=== PATIENT | female | born 1940 | race Caucasian/White ===

== ENCOUNTER 2016-10-13 09:26 | Inpatient (IN) | payer BC, OTHER ==
[~2016-10-13] VITALS: Ht 165.1 cm; Wt 61.6 kg
[~2016-10-13 09:26] MED LIST: AZTREONAM IV; IBUP-103 PO; METRONIDAZOLE IV; ONDA4TAB10 SL; VANCOMYCIN IV; [UNRECOGNIZED DRUG - OTHER] IV
[2016-10-13] MEDS ORDERED: LDDP5 TOP (10:59)
[2016-10-13] MEDS ORDERED: OSEL75CA12 PO (10:59)
[2016-10-13] MEDS ORDERED: METO50TA16 PO (10:59)
[2016-10-13] MEDS ORDERED: POLY335019 PO (10:59)
[2016-10-13] MEDS ORDERED: BISA10SU3 PR (10:59)
[2016-10-13] MEDS ORDERED: HYDR-4383 PO (10:59)
[2016-10-13] MEDS ORDERED: DOCU-94 PO (10:59)
[2016-10-13] MEDS ORDERED: SENN-104 PO (10:59)
[2016-10-13] MEDS ORDERED: CYCL10TA6 PO (10:59)
[2016-10-13] MEDS ORDERED: OXYC1TAB3 PO (10:59)
[2016-10-13] MEDS ORDERED: CALC200T PO (10:59)
[2016-10-13] MEDS ORDERED: SODIUM CHLORIDE 0.9% 1000ML 1,000 ML IV STA (11:08)
[2016-10-13] MEDS ORDERED: HYDROCODONE/ACETAMOPHEN 5/325MG TAB PO STA (11:08)
[2016-10-13] MEDS ORDERED: OPTIRAY 320 IV PRN (11:15)
--- NOTE | 2016-10-13 11:19 | DIAGNOSTIC IMAGING REPORT ---
CHEST ONE VIEW PORTABLE CLINICAL HISTORY: Fever, sepsis, chest pain, shortness of breath. COMPARISON STUDY: 09/28/2016 FINDINGS: The heart is the upper limits of normal in size. There is elevation of the interstitium. Since the prior study, the patient developed a right perihilar airspace opacities. Given the history of fever and sepsis, this likely is inflammatory. Left basilar airspace opacities are also evident. These have a more typical atelectatic appearance although a left basilar inflammatory process cannot be excluded.[ IMPRESSION: 1. Mild elevation of the interstitium. An element of mild pulmonary vascular congestion must be considered 2. Right perihilar airspace opacities, suspicious for a pneumonitis given the clinical history 3. Left basal airspace opacities, inflammatory versus atelectatic Electronically signed by: Lui To M.D. 10/13/2016 11:17 AM
[2016-10-13 11:39] LABS: BASO % 0.1 %; BASO ABS # 0.02 K/uL (0-0.2); COMPLETE YES; EOS % 0.3 %; HEMATOCRIT 40.6 % (37-47); IG% 0.5 %; LYMPH % 7.9 %; LYMPH ABS # 1.12 K/uL (1.2-3.4); MEAN CELL VOLUME 84.6 fL (80-100); MEAN CORPUSCULAR HEMOGLOBIN 27.9 pg (25-34); MEAN PLATELET VOLUME 9.7 fL (7.4-10.4); MONO % 9.3 %; NEUT % 81.9 %; PLATELET COUNT 183 K/uL (130-400); WHITE BLOOD COUNT 14.14 K/uL (4.8-10.8)
[2016-10-13 11:47] LABS: URINE APPEARANCE CLEAR (CLEAR); URINE BILIRUBIN NEG (NEG); URINE COLOR YELLOW; URINE EPITHELIAL CELL AUTO 20-30 /lpf (0-5); URINE NITRITE NEG (NEG); URINE SPECIFIC GRAVITY 1.013 (1.000-1.030); UROBILINOGEN NEG (NEG)
[2016-10-13 11:53] LABS: ALT/SGPT 55 U/L (12-78); BLOOD UREA NITROGEN 13 mg/dl (7-18); BUN/CREATININE RATIO 21.2 (10-20); CALCIUM 9.1 mg/dl (8.5-10.1); CARBON DIOXIDE 27 mmol/L (21-32); CHLORIDE 96 mmol/L (98-107); GLUCOSE 101 mg/dl (70-99); POTASSIUM 4.3 mmol/L (3.5-5.1); SODIUM 134 mmol/L (136-145)
[2016-10-13 11:54] LABS: MANUAL MICROSCOPIC REQUIRED? NO; REVIEW REQ? NO
[2016-10-13 11:59] LABS: ALKALINE PHOSPHATASE 155 U/L (45-117); AST/SGOT 34 U/L (15-37); CKMB/CK RATIO 3.9 (0-3.0)
[2016-10-13 12:07] LABS: PARTIAL THROMBOPLASTIN RATIO 1.2; PROTHROMBIN TIME (PATIENT) 10.5 SECONDS (9.0-12.0)
--- NOTE | 2016-10-13 13:00 | DIAGNOSTIC IMAGING REPORT ---
CT ANGIOGRAM OF THE CHEST CLINICAL HISTORY: Atypical chest pain. Possible pulmonary embolism. COMPARISON STUDY: Chest x-ray dated 10/13/2016 TECHNIQUE: Following the IV administration of 77 mL of Optiray-320, CT angiogram of the thorax was performed from the thoracic inlet to the lung bases utilizing the pulmonary embolus protocol. Images are reviewed in the axial, sagittal, and coronal planes. IV contrast was administered without complication. MIP imaging was performed. CT DOSE: 264.62 mGy.cm FINDINGS: There is a multinodular thyroid gland with nodules measuring up to 16 mm in diameter. No pathologically enlarged axillary mediastinal or hilar lymph nodes were visualized. There was no evidence of thoracic aortic dilatation. There are moderate to large bilateral pulmonary artery filling defects involving both upper lobes and both lower lobes., There are right lower lobe airspace opacities, consistent with a pneumonia or pulmonary infarct. There are also left upper lobe airspace opacities likely secondary to atelectasis or infarct. There is a trace right pleural effusion. There are postsurgical changes present within the spine. IMPRESSION: 1. Moderate to large bilateral pulmonary filling defects consistent with acute pulmonary embolism. 2. Bilateral airspace opacities, possibly secondary to pulmonary infarction 3. Trace right pleural effusion 4. Multinodular thyroid gland Electronically signed by: Lui To M.D. 10/13/2016 12:58 PM
--- NOTE | 2016-10-13 14:14 | EMERGENCY ROOM VISIT NOTE ---
History Report prepared by Briana: Jimmie Vasquez Under the Supervision of: Dr. Chan Tello D.O. First contact with patient: 10:49 Chief Complaint: CHEST PAIN Stated Complaint: CHEST PAIN/SOB Nursing Triage Summary: Pt. arrives ALS from [facility] with a chief complaint of chest pain. She has the pain when she takes a deep breath. She appears to be in pain "it hurts when I breathe" and is on the litter with her eyes closed, wincing with pain. She reports having a laminectomy 4 weeks ago, she has a history of ovarian cancer. ALS reports a BSG of 97 during transport. Daughter arrives with further history: Pt. was dx. with ovarian CA on her birthday, [birth year]. Prior to her dx. her baseline status was an active older adult, lives at home with her . She also had a new onset of A-fib prior to her laminectomy. The laminectomy was for a blood clot in her dura space. Recheck on 10/09/16 post op, revealed an intact and healing incision. Pt. was due to begin CA tx. the beginning of September. She has not started yet. "there is a mass on her lower lobe lung too" History of Present Illness The patient is a 76 year old female who presents to the Emergency Room with complaints of persistent right-sided chest and back pain that started last night. Per the patient's family, the patient was complaining of mostly right- sided chest pain last night. The pain then moved to her back this morning at the same height and region on her right side. The pain is worse when breathing. She was given Oxycodone last night, and the nurse at [facility] said the patient's symptoms improved somewhat. The patient had a laminectomy 4 weeks ago and has a history of ovarian cancer. She had surgery on the and was sent for rehab at [facility] on the . She has been having muscle spasms in her back. The patient is not allowed to cough or vomit due to her surgery, and is on Tamiflu because there is a flu outbreak at [facility]. The patient's family notes that the patient has a history of an atrial fibrillation episode. Source of History: patient, family Onset: Last night Position: chest (right), back (right) Timing: other (persistent) Modifying Factors (Worsening): breathing Modifying Factors (Relieving): other (Oxycodone) Associated Symptoms: No cough, No vomiting Note: No other associated symptoms. Review of Systems See HPI for pertinent positives & negatives. A total of 10 systems reviewed and were otherwise negative. Past Medical & Surgical Medical Problems: (1) Gastritis (2) Knee pain (3) Ovarian cancer Family History Heart disease Social History Smoking Status: Never Smoker Alcohol Use: none Drug Use: none Marital Status: Housing Status: lives with family Occupation Status: retired Current/Historical Medications Scheduled Bisacodyl (Dulcolax), 1 SUPP PA DAILY Calcium Carbonate-Vitamin D (Oscal 500/200 D-3), 1 TAB PO DAILY Docusate Sodium (Colace), 1 CAP PO BID Lidocaine (Lidocaine), 1 PATCH TOP DAILY Metoprolol Tartrate (Lopressor) (Lopressor), 50 MG PO BID Oseltamivir (Tamiflu), 75 MG PO DAILY Polyethylene Glycol 3350 (Miralax), 17 GM PO DAILY Sennosides-Docusate Sodium (Senna-S), 1 TAB PO BID Scheduled PRN Cyclobenzaprine Hcl (Flexeril), 10 MG PO Q8 PRN for Muscle Spasms Hydrocodone/Acetaminophen (Naubinway 10/325 Tab), 1 TAB PO Q4 PRN for Pain Oxycodone Immediate Rel Tab (Roxicodone Ir), 5 MG PO Q2H PRN for Breakthrough Pain Allergies Coded Allergies: Oxaprozin (Verified Allergy, Intermediate, FEET SWELLING, SKIN PEELING, ) Piperacillin (Verified Allergy, Intermediate, hives, 10/13/16) Tazobactam (Verified Allergy, Intermediate, hives, 10/13/16) Physical Exam Vital Signs Date Time Temp Pulse Resp B/P Pulse Ox O2 Delivery O2 Flow Rate FiO2 10/13/16 13:35 106 18 142/95 95 Room Air 10/13/16 12:21 112 31 10/13/16 12:16 107 21 95 10/13/16 12:11 109 21 96 10/13/16 12:06 106 21 94 10/13/16 12:01 107 27 94 10/13/16 11:57 158/84 10/13/16 11:57 104 20 158/84 96 Room Air 10/13/16 11:56 103 21 96 10/13/16 11:51 96 20 96 10/13/16 11:46 107 25 98 10/13/16 11:41 121 23 97 10/13/16 11:36 120 21 96 10/13/16 11:31 123 28 96 10/13/16 11:26 122 27 97 10/13/16 11:21 118 32 97 10/13/16 11:16 117 28 97 10/13/16 11:11 126 28 10/13/16 11:06 114 34 97 10/13/16 11:01 118 24 96 10/13/16 10:56 117 22 95 10/13/16 10:51 119 23 94 10/13/16 10:46 101 21 94 10/13/16 10:41 104 21 95 10/13/16 10:36 102 20 94 10/13/16 10:31 100 20 98 10/13/16 10:26 99 20 95 10/13/16 10:21 103 19 94 10/13/16 10:16 102 22 96 10/13/16 10:11 100 19 94 10/13/16 10:06 103 20 93 10/13/16 10:01 96 29 98 10/13/16 09:56 106 26 97 10/13/16 09:53 133/62 10/13/16 09:53 105 18 95 Room Air 10/13/16 09:51 100 24 92 10/13/16 09:46 103 27 97 10/13/16 09:41 106 29 96 10/13/16 09:36 102 26 100 10/13/16 09:36 99 Room Air 10/13/16 09:34 36.7 158 18 153/84 99 Room Air 10/13/16 09:33 175 10/13/16 09:31 100 25 100 10/13/16 09:28 153/84 10/13/16 09:25 99 Room Air Physical Exam CONSTITUTIONAL/VITAL SIGNS: Reviewed / noted above. GENERAL: Non-toxic in appearance. INTEGUMENTARY: Warm, dry, and [place]. HEAD: Normocephalic. EYES: without scleral icterus or trauma. ENT/OROPHARYNX: clear and moist. LYMPHADENOPATHY/NECK: Is supple without lymphadenopathy or meningismus. RESPIRATORY: Lungs clear and equal. CARDIOVASCULAR: Regular rate and rhythm. CHEST: Tenderness to palpation of right lateral and posterior chest wall, no visible abnormalities. GI/ABDOMEN: Soft and nontender. No organomegaly or pulsatile mass. No rebound or guarding. Normal bowel sounds. EXTREMITIES: Warm and well perfused. BACK: No CVA tenderness. Post-surgical scar present in midline thoracic spine without evidence of infection. NEUROLOGICAL: Intact without focal deficits. PSYCHIATRIC: normal affect. MUSCULOSKELETAL: Normally developed with good muscle tone. Medical Decision & Procedures ER Provider Diagnostic Interpretation: X ray results and stated below per my interpretation and radiologist interpretation. Other radiology results and stated below per my review and radiologist interpretation: CHEST ONE VIEW PORTABLE CLINICAL HISTORY: Fever, sepsis, chest pain, shortness of breath. COMPARISON STUDY: 09/28/2016 FINDINGS: The heart is the upper limits of normal in size. There is elevation of the interstitium. Since the prior study, the patient developed a right perihilar airspace opacities. Given the history of fever and sepsis, this likely is inflammatory. Left basilar airspace opacities are also evident. These have a more typical atelectatic appearance although a left basilar inflammatory process cannot be excluded.[ IMPRESSION: 1. Mild elevation of the interstitium. An element of mild pulmonary vascular congestion must be considered 2. Right perihilar airspace opacities, suspicious for a pneumonitis given the clinical history 3. Left basal airspace opacities, inflammatory versus atelectatic Electronically signed by: Lui To M.D. 10/13/2016 11:[address] ANGIOGRAM OF THE CHEST CLINICAL HISTORY: Atypical chest pain. Possible pulmonary embolism. COMPARISON STUDY: Chest x-ray dated 10/13/2016 TECHNIQUE: Following the IV administration of 77 mL of Optiray-320, CT angiogram of the thorax was performed from the thoracic inlet to the lung bases utilizing the pulmonary embolus protocol. Images are reviewed in the axial, sagittal, and coronal planes. IV contrast was administered without complication. MIP imaging was performed. CT DOSE: 264.62 mGy.cm FINDINGS: There is a multinodular thyroid gland with nodules measuring up to 16 mm in diameter. No pathologically enlarged axillary mediastinal or hilar lymph nodes were visualized. There was no evidence of thoracic aortic dilatation. There are moderate to large bilateral pulmonary artery filling defects involving both upper lobes and both lower lobes., There are right lower lobe airspace opacities, consistent with a pneumonia or pulmonary infarct. There are also left upper lobe airspace opacities likely secondary to atelectasis or infarct. There is a trace right pleural effusion. There are postsurgical changes present within the spine. IMPRESSION: 1. Moderate to large bilateral pulmonary filling defects consistent with acute pulmonary embolism. 2. Bilateral airspace opacities, possibly secondary to pulmonary infarction 3. Trace right pleural effusion 4. Multinodular thyroid gland Electronically signed by: Lui To M.D. 10/13/2016 12:58 PM Laboratory Results 10/13/16 09:40 Red Blood Count 4.80, Mean Corpuscular Volume 84.6, Mean Corpuscular Hemoglobin 27.9, Mean Corpuscular Hemoglobin Concent 33.0, Mean Platelet Volume 9.7, Neutrophils (%) (Auto) 81.9, Lymphocytes (%) (Auto) 7.9, Monocytes (%) (Auto) 9.3, Eosinophils (%) (Auto) 0.3, Basophils (%) (Auto) 0.1, Neutrophils # (Auto) 11.57, Lymphocytes # (Auto) 1.12, Monocytes # (Auto) 1.32, Eosinophils # (Auto) 0.04, Basophils # (Auto) 0.02 10/13/16 09:40 Test 10/13/16 09:40 10/13/16 11:17 White Blood Count 14.14 K/uL (4.8-10.8) Red Blood Count 4.80 M/uL (4.2-5.4) Hemoglobin 13.4 g/dL (12.0-16.0) Hematocrit 40.6 % (37-47) Mean Corpuscular Volume 84.6 fL (80-100) Mean Corpuscular Hemoglobin 27.9 pg (25-34) Mean Corpuscular Hemoglobin Concent 33.0 g/dl (32-36) Platelet Count 183 K/uL (130-400) Mean Platelet Volume 9.7 fL (7.4-10.4) Neutrophils (%) (Auto) 81.9 % Lymphocytes (%) (Auto) 7.9 % Monocytes (%) (Auto) 9.3 % Eosinophils (%) (Auto) 0.3 % Basophils (%) (Auto) 0.1 % Neutrophils # (Auto) 11.57 K/uL (1.4-6.5) Lymphocytes # (Auto) 1.12 K/uL (1.2-3.4) Monocytes # (Auto) 1.32 K/uL (0.11-0.59) Eosinophils # (Auto) 0.04 K/uL (0-0.5) Basophils # (Auto) 0.02 K/uL (0-0.2) RDW Standard Deviation 50.5 fL (36.4-46.3) RDW Coefficient of Variation 16.2 % (11.5-14.5) Immature Granulocyte % (Auto) 0.5 % Immature Granulocyte # (Auto) 0.07 K/uL (0.00-0.02) Prothrombin Time 10.5 SECONDS (9.0-12.0) Prothromb Time International Ratio 1.0 (0.9-1.1) Activated Partial Thromboplast Time 31.5 SECONDS (21.0-31.0) Partial Thromboplastin Ratio 1.2 Anion Gap 11.0 mmol/L (3-11) Est Creatinine Clear Calc Drug Dose 80.8 ml/min Estimated GFR () 104.1 Estimated GFR (Non- 89.8 BUN/Creatinine Ratio 21.2 (10-20) Calcium Level 9.1 mg/dl (8.5-10.1) Total Bilirubin 0.3 mg/dl (0.2-1) Direct Bilirubin < 0.1 mg/dl (0-0.2) Aspartate Amino Transf (AST/SGOT) 34 U/L (15-37) Alanine Aminotransferase (ALT/SGPT) 55 U/L (12-78) Alkaline Phosphatase 155 U/L (45-117) Total Creatine Kinase 23 U/L (26-192) Creatine Kinase MB 0.9 ng/ml (0.5-3.6) Creatine Kinase MB Ratio 3.9 (0-3.0) Troponin I 0.029 ng/ml (0-0.045) Total Protein 7.3 gm/dl (6.4-8.2) Albumin 2.8 gm/dl (3.4-5.0) Lipase 175 U/L (73-393) Urine Color YELLOW Urine Appearance CLEAR (CLEAR) Urine pH 7.0 (4.5-7.5) Urine Specific [place] 1.013 (1.000-1.030) Urine Protein NEG (NEG) Urine Glucose (UA) NEG (NEG) Urine Ketones NEG (NEG) Urine Occult Blood 1+ (NEG) Urine Nitrite NEG (NEG) Urine Bilirubin NEG (NEG) Urine Urobilinogen NEG (NEG) Urine Leukocyte Esterase TRACE (NEG) Urine WBC (Auto) 5-10 /hpf (0-5) Urine RBC (Auto) 5-10 /hpf (0-4) Urine Hyaline Casts (Auto) 1-5 /lpf (0-5) Urine Epithelial Cells (Auto) 20-30 /lpf (0-5) Urine Bacteria (Auto) NEG (NEG) Laboratory results as stated above per my review. Medications Administered Medications (Trade) Dose Ordered Sig/Bianca Route Start Time Stop Time Status Last Admin Dose Admin Sodium Chloride (Nss 1000ml) 1,000 ml @ 999 mls/hr Q1H1M STAT IV 10/13/16 11:08 10/13/16 12:08 DC 10/13/16 11:22 999 MLS/HR Acetaminophen/ Hydrocodone Bitart ([place] 5/325 Tab) 2 tab ONE STAT PO 10/13/16 11:08 10/13/16 11:10 DC 10/13/16 11:24 2 TAB ECG Indication: chest pain Rate (beats per minute): 105 Rhythm: sinus tachycardia Findings: PVC, other (no acute injury) ED Course 1058: Previous medical records were reviewed. The patient was evaluated in room B5. A complete history and physical examination was performed. 1108: Ordered Naubinway 5/325 Tab 2 tab PO, NSS 1000 ml @ 999 mls/hr IV. 1355: I discussed the patient with Dr. Meyers - [facility] [place] wildlife science professor - he will evaluate the patient for further treatment. 1356: I discussed the patient with Dr. Quiñones - Neurosurgery [facility] - he said that it is okay to start the patient on Heparin. 1400: I reevaluated the patient and she is resting comfortably. The patient verbally expressed agreement and understanding of the treatment plan. The patient will be evaluated for further treatment. Medical Decision the differential was considered includes acute myocardial infarction, acute coronary syndrome, myocarditis, pericarditis, pericardial effusions /tamponad, esophageal perforation, thoracic aortic dissection, pulmonary embolism, pneumonia, pneumothorax, pancreatitis, shingles, acute cholecystitis, perforated abdominal viscus. This is a 76-year-old female who presents to the ED with a chief complaint of chest pain. Further details are noted above. She denies having a cough. She states that her breathing and pain is worse with deep breathing. The patient had surgery on September 29 for hemorrhage/epidural abscess. The patient's exam is noted above. She is in no respiratory distress at this time. She did have diminished breath sounds bilaterally. An EKG shows a sinus tach at a rate of 105 with a PVC. Chest x-ray has been noted above. A CT scan of the chest reveals bilateral pulmonary emboli with some pulmonary infarctions. 5 pulsatile was 14. Complete metabolic panel was unremarkable. Urine did not show infection. The patient was told the results of the tests. I spoke with Dr. Suarez (neurosurgery from [facility]). He is prosthodontist for Dr. Mead who performed the patient's surgery. He states that anticoagulation is okay to be started. The patient was ordered IV heparin. I spoke with the hospitalist, who will see the patient for further inpatient care. Consults Time Called: [phone] Consulting Physician: Dr. Mira SEGURA wildlife science professor Returned Call: [phone] I discussed the patient with Dr. Mira SEGURA wildlife science professor - he will evaluate the patient for further treatment. Additional Consults: Time Called: [phone] Consulted Physician: Dr. Quiñones - Neurosurgery - [facility] Returned Call: [phone] Additional Comments: I discussed the patient with Dr. Quiñones - Neurosurgery - [facility] - he said that it is okay to start the patient on Heparin. Impression Primary Impression: Bilateral pulmonary embolism Critical Care I have personally spent 35 minutes of critical care time in the direct management of this patient. This includes bedside care, interpretation of diagnostic studies, and testing, discussion with consultants, patient, and family members, and other required patient management activities. Scribe Attestation The scribe's documentation has been prepared under my direction and personally reviewed by me in its entirety. I confirm that the note above accurately reflects all work, treatment, procedures, and medical decision making performed by me. Departure Information Dispostion Being Evaluated By Hospitalist Adelso Gunn M.D. (PCP) Patient Instructions A Signature Page, My [facility]
[2016-10-13] MEDS ORDERED: MAGNESIUM HYDROXIDE SUSP 30 ML UDC PO PRN (14:15)
[2016-10-13] MEDS ORDERED: ACETAMINOPHEN 325 MG TAB PO PRN (14:15)
[2016-10-13] MEDS ORDERED: POLYETHYLENE (MIRALAX) 17 GM PACK PO PRN (14:15)
[2016-10-13] MEDS ORDERED: ONDANSETRON INJ 2 MG/ML 2 ML VIAL IV PRN (14:15)
[2016-10-13] MEDS ORDERED: ALUMINUM/MAGNESIUM/SIMETH (MAALOX MAX) 30 ML UDC PO PRN (14:15)
[2016-10-13] MEDS ORDERED: MoRPHine SULFATE 2 MG/ML CARP IV PRN (14:30)
[2016-10-13] MEDS ORDERED: METOPROLOL TARTRATE 1 MG/ML VIAL IV PRN (14:30)
[2016-10-13] MEDS ORDERED: MoRPHine SULFATE 4 MG/ML 1 ML CARP\\VIAL IV PRN (14:30)
--- NOTE | 2016-10-13 15:51 | ECHOCARDIOGRAM REPORT ---
*NOTICE TO RECEIVING DEMOCRAT AGENCY This information is strictly Confidential and protected under [place] law. [place] law prohibits you from making any further disclosure of this information unless further disclosure is expressly permitted by the written consent of the person to whom it pertains or is authorized by law. A general authorization for the release of medical or other information is not sufficient for this purpose. Hospital accepts no responsibility if the information is made available to any other person, INCLUDING THE PATIENT. Interpretation Summary * Name: ANH LOPEZ Study Date: 10/13/2016 03:56 PM BP: 142/95 mmHg * Patient Location: C.ED HR: 102 * : 1940 (M/d/yyyy) Gender: Female Height: 65 in * Age: 76 yrs Ethnicity: CA Weight: 154 lb * Performed By: Kavitha Lopez RCS * * Reason For Study: PULMONARY HTN / R/O PE * BSA: 1.8 m2 * -- Conclusions -- * 1. Normal left ventricular size with hyperdynamic systolic function. EF 70-75%. No regional wall motion abnormalities visualized. Mild concentric left ventricular hypertrophy. * 2. The right ventricle is normal in size and function. * 3. There is moderate to severe tricuspid regurgitation. * 4. Moderate to severe pulmonary hypertension suggested; Estimated RVSP 59 mmHg. * 5. Limited 2-D echo with spectral and color Doppler. * 6. Compared to prior study on 09/26/2016, estimated RVSP is now moderately to severely elevated and there is now moderate to severe tricuspid regurgitation. Procedure Details * Limited views were obtained. Left Ventricle * Normal left ventricular size with hyperdynamic systolic function. EF 70-75%. No regional wall motion abnormalities visualized. Mild concentric left ventricular hypertrophy. Right Ventricle * The right ventricle is normal in size and function. * The right ventricular systolic function is normal as assessed by tricuspid annular plane systolic excursion (TAPSE) (normal >1.5 cm). Atria * The left atrial size is normal. * Right atrial size is normal. * There is no evidence of atrial septal defect, but resolution does not allow assessment for a patent foramen ovale. Mitral Valve * The mitral valve is normal in structure and function. * Significant mitral regurgitation is absent. Tricuspid Valve * The tricuspid valve anatomy is normal. * There is no tricuspid stenosis. * There is moderate to severe tricuspid regurgitation. Aortic Valve * The aortic valve is trileaflet. * The aortic valve is normal in structure and function. * No hemodynamically significant valvular aortic stenosis. * No aortic regurgitation is present. Pulmonic Valve * The pulmonic valve is not well visualized. Great Vessels * The aortic root is normal size. Pericardium/Pleural * There is no pericardial effusion. Great Vessels * Normal inferior vena cava size and collapsability with sniff indicates a normal right atrial pressure of 3 mmHg MMode 2D Measurements and Calculations IVSd 1.2 cm IVSs 2.4 cm LVIDd 4.0 cm LVIDs 1.9 cm LVPWd 1.2 cm LVPWs 2.0 cm IVS/LVPW 0.98 FS 52.2 % EDV(Teich) 68.5 ml ESV(Teich) 11.1 ml EF(Teich) 83.9 % EDV(cubed) 62.3 ml ESV(cubed) 6.8 ml EF(cubed) 89.1 % % IVS thick 104.7 % % LVPW thick 66.4 % LV mass(C)d 156.0 grams LV mass(C)dI 88.2 grams/m\S\2 LV mass(C)s 194.2 grams LV mass(C)sI 109.7 grams/m\S\2 SV(Teich) 57.5 ml SI(Teich) 32.5 ml/m\S\2 SV(cubed) 55.5 ml SI(cubed) 31.4 ml/m\S\2 Ao root diam 3.1 cm Ao root area 7.6 cm\S\2 LA dimension 3.1 cm LA/Ao 0.99 LVOT diam 2.0 cm LVOT area 3.2 cm\S\2 LVAd ap4 20.7 cm\S\2 LVLd ap4 7.5 cm EDV(MOD-sp4) 47.2 ml EDV(sp4-el) 48.8 ml LVAs ap4 10.3 cm\S\2 LVLs ap4 6.4 cm ESV(MOD-sp4) 15.7 ml ESV(sp4-el) 14.1 ml EF(MOD-sp4) 66.8 % EF(sp4-el) 71.1 % SV(MOD-sp4) 31.5 ml SI(MOD-sp4) 17.8 ml/m\S\2 SV(sp4-el) 34.7 ml SI(sp4-el) 19.6 ml/m\S\2 Doppler Measurements and Calculations Ao V2 max 140.8 cm/sec Ao max PG 7.9 mmHg Ao max PG (full) 0.01 mmHg PRISCILLA(V,A) 3.2 cm\S\2 PRISCILLA(V,D) 3.2 cm\S\2 LV V1 max PG 7.9 mmHg LV V1 max 140.7 cm/sec TR max ela 372.5 cm/sec RVSP(TR) 58.5 mmHg RAP systole 3.0 mmHg
--- NOTE | 2016-10-13 15:56 | DIAGNOSTIC IMAGING REPORT ---
ULTRASOUND VENOUS DOPPLER LWR EXT BILA CLINICAL HISTORY: Ovarian carcinoma. Pulmonary embolism. COMPARISON STUDY: No previous studies for comparison. FINDINGS: On the right, thrombus is visualized within the superficial femoral vein, popliteal vein, posterior tibial vein, peroneal veins. On the left, thrombus is seen within the posterior tibial and peroneal veins. There is prominent pulsatility within the venous waveforms, suggesting elevated right heart pressures. IMPRESSION: Bilateral lower extremity DVT. Electronically signed by: Lui To M.D. 10/13/2016 3:54 PM
[2016-10-13 16:23] VITALS: BP 153/87; PULSE 97; TEMP 36.4; O2SAT 94; Ht 165.1 cm; Wt 61.6 kg
[2016-10-13] MEDS: HEPARIN 25,000 UNIT/500ML D5W 500 ML IV PRN (17:12)
--- NOTE | 2016-10-13 17:23 | HISTORY & PHYSICAL EXAMINATION ---
DATE OF ADMISSION: 10/13/2016 CHIEF COMPLAINT: Chest pain. ADMITTING DIAGNOSIS: Bilateral pulmonary embolism associated with malignancy and recent surgery. HISTORY OF PRESENT ILLNESS: Ms. Lopez is an unfortunate 76-year-old female who was recently diagnosed with metastatic ovarian cancer in the fall of 2015. She then presented to our facility on 09/25/2016 with back pain and difficulty walking. During that admission, the patient was felt to have an epidural fluid collection which ended up being an intradural fluid collection. She was transferred to [facility] where she had decompressive surgery. There was some discussion that this may have been caused by violent coughing. During that admission, she also had atrial fibrillation and RVR. The patient was recovering at [facility] when she developed chest pain prior to arrival today. In the Emergency Department, she had a CT scan which was performed and showed extensive bilateral pulmonary embolisms and a trace right pleural effusion. There is no evidence of comment of masses within her lung cavity. Dr. Chan Tello spoke to the neurosurgeon exchange consultant at [facility] for Dr. Mead and was given permission to begin therapeutic anticoagulation. The patient is in the room with her daughter. She is having chest pain, worse with movement. She does not appear to be in respiratory distress or short of breath in any way. She has not had any lower extremity swelling or focal tenderness over the last few days. In fact she has been doing better with regard to ambulation. PAST MEDICAL HISTORY: Ovarian cancer, the epidural bleed, atrial fib, RVR. There has been an influenza A outbreak at [facility] and she has been instituted on Tamiflu. FAMILY HISTORY: Includes heart disease. SOCIAL HISTORY: She has never smoked. She is . [place], has a supportive family. MEDICATIONS: On presentation. Of note, the patient has significant bowel related problems and she is on a bowel regimen. Her pain medicines were hydrocodone and oxycodone. Her bowel regimen was Dulcolax 10 mg daily, Colace 100 b.i.d., MiraLax 17 gm a day, senna 1 tablet twice a day. Her additional medications are calcium D 1 tablet daily, Flexeril 10 q. 8 p.r.n., lidocaine patch to her back with Toprol 50 b.i.d. and the Tamiflu 75 daily. Of note, the patient requires intermittent straight catheterization. REVIEW OF SYSTEMS: Ten systems were reviewed and are negative. The patient does not have dysuria or hematuria. She has a central pleuritic chest pain, worse with a deep breath and movement, otherwise negative. PHYSICAL EXAMINATION: VITAL SIGNS: Temperature is 36.7, pulse was 106, respiration rate 18, BP 142/95, O2 sat 95. HEENT: PERRL. EOMI. Oropharynx clear. Mucous membranes are moist. NECK: Without lymphadenopathy or JVD. HEART: Irregularly irregular. There are no murmurs. LUNGS: Have shallow breath sounds limited by pleuritic pain. No focal air loss. No wheeze. ABDOMEN: Normoactive bowel sounds. Tender in the right upper and lower quadrants. This is a longstanding pain and discomfort for her. EXTREMITIES: Without cyanosis, clubbing or edema, cords or Homans sign. There is no focal tenderness of any kind. NEUROLOGICALLY: She is awake, alert and appropriate. Cranial nerves II through XII are intact. Equal symmetrical strength and sensation. PSYCHOLOGIC: She appears depressed, but does make eye contact. SKIN: Without lesions, growths, bruises or bleeding. DATA: Her EKG shows sinus tachycardia. CT scan as mentioned. Chest x-ray showed left airspace opacities, perihilar airspace opacities on the right and mild elevation of the interstitium considering mild pulmonary vascular congestion. LABORATORY DATA: White count of 14, H\T\H 13 and 40, platelet count 183. BUN and creatinine of 13 and 0.6. Glucose 101. Alkaline phosphatase 155. Sodium 134. Urinalysis shows blood and leukocyte esterase. A culture is pending. ASSESSMENT: A 76-year-old female here with bilateral pulmonary embolisms, recent spinal surgery and ovarian cancer with abdominal carcinomatosis. For the pulmonary embolism will cautiously use heparin drip. We will consult hematology/oncology for discussion long-term anticoagulation. The lower extremities to have an ultrasound, if lower extremity clots are present, will discuss the possibility of a temporary inferior vena caval filter. The patient also states there was discussion about needing an A-port, we can coordinate this with hematology/oncology and perhaps temporary cease the heparin and have it placed during her hospital stay. Consideration for long-term Lovenox could be discussed. Regarding atrial fibrillation, she is in sinus rhythm by EKG. We will maintain her metoprolol with p.r.n. backup. She will be in telemetry setting. Regarding her constipation, we will maintain all of her bowel regimen as listed above. Have additional MiraLax as needed with caution as opioids, which we will use for her chest discomfort may create increased constipation. The patient is a full code.
[2016-10-13] MEDS: OXYCODONE HCL IR 5 MG TAB (IMMEDIATE RELEASE) PO PRN (17:51)
[2016-10-13 19:50] VITALS: BP 157/88; PULSE 125; TEMP 37; O2SAT 94
[2016-10-13] MEDS: DOCUSATE SODIUM/SENNA 50/8.6MG TAB PO SCH (21:09)
[2016-10-13] MEDS: METOPROLOL TARTRATE 50 MG TAB PO SCH (21:09)
[2016-10-13] MEDS: DOCUSATE SODIUM 100 MG CAP PO SCH (21:09)
[2016-10-13] MEDS: CYCLOBENZAPRINE HCL 10 MG TAB PO PRN (22:44)
[2016-10-13 23:26] VITALS: BP 142/81; PULSE 111; TEMP 37; O2SAT 91
[2016-10-14 00:23] LABS: PARTIAL THROMBOPLASTIN RATIO 1.8
[2016-10-14] MEDS ORDERED: HEPARIN IV BOLUS 2,000 UNIT in SYRINGE 0 ML IV STA (00:50)
[2016-10-14] MEDS: HEPARIN 25,000 UNIT/500ML D5W 500 ML IV PRN ×3 (01:00→14:44)
[2016-10-14 03:39] VITALS: BP 168/97; PULSE 103; TEMP 36.9; O2SAT 90
[2016-10-14] MEDS: OXYCODONE HCL IR 5 MG TAB (IMMEDIATE RELEASE) PO PRN ×2 (05:58→11:52)
[2016-10-14 07:30] LABS: HEMATOCRIT 35.2 % (37-47); MEAN CELL VOLUME 82.6 fL (80-100); MEAN CORPUSCULAR HEMOGLOBIN 27.7 pg (25-34); MEAN CORPUSCULAR HGB CONC 33.5 g/dl (32-36); PLATELET COUNT 196 K/uL (130-400); RED BLOOD COUNT 4.26 M/uL (4.2-5.4); WHITE BLOOD COUNT 13.18 K/uL (4.8-10.8)
[2016-10-14 07:45] LABS: PARTIAL THROMBOPLASTIN RATIO 1.8
[2016-10-14 07:57] LABS: BUN/CREATININE RATIO 27.6 (10-20); CALCIUM 8.4 mg/dl (8.5-10.1); CREATININE 0.41 mg/dl (0.60-1.20)
[2016-10-14 08:08] VITALS: BP 155/96; PULSE 105; TEMP 36.5; O2SAT 96
[2016-10-14] MEDS: DOCUSATE SODIUM/SENNA 50/8.6MG TAB PO SCH ×2 (08:08→21:05)
[2016-10-14] MEDS: DOCUSATE SODIUM 100 MG CAP PO SCH ×2 (08:08→21:05)
[2016-10-14] MEDS: POLYETHYLENE (MIRALAX) 17 GM PACK PO SCH (08:08)
[2016-10-14] MEDS: CALCIUM 600MG + VIT D 400 IU TAB PO SCH (08:08)
[2016-10-14] MEDS: LIDODERM (LIDOCAINE) PATCH 5% TD SCH (08:09)
[2016-10-14] MEDS: OSELTAMIVIR PHOSPHATE 75 MG CAP PO SCH (08:09)
[2016-10-14] MEDS: METOPROLOL TARTRATE 50 MG TAB PO SCH ×2 (08:09→21:05)
[2016-10-14] MEDS ORDERED: HEPARIN IV BOLUS 2,000 UNIT in SYRINGE 0 ML IV ONE (09:15)
[2016-10-14] MEDS: BISACODYL 10 MG SUPP PR SCH (10:04)
--- NOTE | 2016-10-14 10:55 | Oncology Consultation ---
Oncology/Heme Consultation Date of Consultation: Oct 14, 2016. Attending Physician: Susan Cantu MD Reason for Consultation: DVT/PE Ovarian cancer History of Present Illness Ms. Lopez is a 76 year old woman with recently diagnosed peritoneal carcinomatosis. Per Dr. Zhang's consult from a few weeks ago, she reportedly has ovarian cancer. At that visit, she was found to have an epidural hematoma in her thoracic spine and was sent to [facility] for decompression. She presented to the ER last night with increasing pain and pleurisy. CT of her chest revealed extensive bilateral PEs. Lower extremity dopplers also revealed bilateral LE DVTs. The attending in the ER contacted the neurosurgeon construction plumber at [facility], who stated it was ok to start full anticoagulation. She was started on a heparin drip last night, though her PTTs are on the low side. She is visibly in pain today, with her respirations limited by pleuritic chest pain. She denies any fevers, hemoptysis, or LE swelling. Past Medical/Surgical History Medical Problems: (1) Back pain Status: Acute (2) Bilateral pulmonary embolism Status: Acute (3) Epidural hematoma Status: Acute Family History Heart disease Social History Smoking Status: Never Smoker Drug Use: none Marital Status: Housing Status: lives with family Occupation Status: retired Allergies Coded Allergies: Oxaprozin (Verified Allergy, Intermediate, FEET SWELLING, SKIN PEELING, ) Piperacillin (Verified Allergy, Intermediate, hives, 10/13/16) Tazobactam (Verified Allergy, Intermediate, hives, 10/13/16) Home Medications Scheduled Bisacodyl (Dulcolax), 1 SUPP OH DAILY Calcium Carbonate-Vitamin D (Oscal 500/200 D-3), 1 TAB PO DAILY Docusate Sodium (Colace), 1 CAP PO BID Lidocaine (Lidocaine), 1 PATCH TOP DAILY Metoprolol Tartrate (Lopressor) (Lopressor), 50 MG PO BID Oseltamivir (Tamiflu), 75 MG PO DAILY Polyethylene Glycol 3350 (Miralax), 17 GM PO DAILY Sennosides-Docusate Sodium (Senna-S), 1 TAB PO BID Scheduled PRN Cyclobenzaprine Hcl (Flexeril), 10 MG PO Q8 PRN for Muscle Spasms Hydrocodone/Acetaminophen (Hamlin 10/325 Tab), 1 TAB PO Q4 PRN for Pain Oxycodone Immediate Rel Tab (Roxicodone Ir), 5 MG PO Q2H PRN for Breakthrough Pain Current Inpatient Medications Current Inpatient Medications Medications (Trade) Dose Ordered Sig/Bianca Route Start Time Stop Time Status Last Admin Dose Admin Ioversol (Optiray 320) 111 ml UD PRN IV 10/13/16 11:15 10/17/16 11:14 Bisacodyl (Dulcolax Supp) 10 mg DAILY OH 10/14/16 09:00 11/13/16 08:59 10/14/16 10:04 10 MG Cyclobenzaprine HCl (Flexeril Tab) 10 mg Q8 PRN PO 10/13/16 14:15 11/12/16 14:14 10/13/16 22:44 10 MG Docusate Sodium (coLACE CAP) 100 mg BID PO 10/13/16 21:00 11/12/16 20:59 10/14/16 08:08 100 MG Lidocaine (Lidoderm Patch 5%) 1 patch DAILY TD 10/14/16 09:00 11/13/16 08:59 10/14/16 08:09 1 PATCH Metoprolol Tartrate (Lopressor Tab) 50 mg BID PO 10/13/16 21:00 11/12/16 20:59 10/14/16 08:09 50 MG Oseltamivir Phosphate (Tamiflu Cap) 75 mg DAILY PO 10/14/16 09:00 10/19/16 08:59 10/14/16 08:09 75 MG Senna/Docusate Sodium (Senokot S Tab) 1 tab BID PO 10/13/16 21:00 11/12/16 20:59 10/14/16 08:08 1 TAB Calcium/Vitamin D (Caltrate Plus Tab) 1 tab DAILY PO 10/14/16 09:00 11/13/16 08:59 10/14/16 08:08 1 TAB Polyethylene (Miralax Powder Packet) 17 gm DAILY PO 10/14/16 09:00 11/13/16 08:59 10/14/16 08:08 17 GM Miscellaneous (Remove Lidoderm Patch) 1 ea DAILY@21 N/A 10/13/16 21:00 11/12/16 20:59 12/31/16 21:15 1 EA Acetaminophen (Tylenol Tab) 650 mg Q4H PRN PO 10/13/16 14:15 11/12/16 14:14 Al Hydrox/Mg Hydrox/Simethicone (Maalox Max Susp) 15 ml Q4H PRN PO 10/13/16 14:15 11/12/16 14:14 Magnesium Hydroxide (Milk Of Magnesia Susp) 30 ml Q12H PRN PO 10/13/16 14:15 11/12/16 14:14 Ondansetron HCl (Zofran Inj) 4 mg Q6H PRN IV 10/13/16 14:15 11/12/16 14:14 Polyethylene (Miralax Powder Packet) 17 gm DAILY PRN PO 10/13/16 14:15 11/12/16 14:14 Oxycodone HCl (Roxicodone Immediate Rel Tab) 10 mg Q6 PRN PO 10/13/16 14:30 10/27/16 14:29 10/14/16 05:58 10 MG Morphine Sulfate (MoRPHine SULFATE INJ) 4 mg Q4H PRN IV 10/13/16 14:30 10/27/16 14:29 10/13/16 23:55 4 MG Morphine Sulfate (MoRPHine SULFATE INJ) 2 mg Q4H PRN IV 10/13/16 14:30 10/27/16 14:29 Metoprolol Tartrate 5 mg 5 mg Q4 PRN IV 10/13/16 14:30 11/12/16 14:29 10/13/16 21:10 5 MG Heparin Sodium/ Dextrose (Heparin 25,000 Unit/500ml D5W) 500 ml @ 26 mls/hr [id number] PRN IV 10/13/16 16:45 11/12/16 16:44 10/14/16 08:41 26 MLS/HR Review of Systems Constitutional: No chills, No fever, No sweats Eyes: No worsening of vision ENT: No unusual epistaxis Respiratory: + shortness of breath, No cough, No hemoptysis Cardiovascular: + chest pain (pleuritic), No palpitations Abdomen: No nausea, No pain, No vomiting Musculoskeletal: No joint pain, No muscle pain Genitourinary - Female: No dysuria, No hematuria, No urinary frequency, No urinary urgency Neurologic: No numbness/tingling, No paralysis, No weakness Hematologic / Lymphatic: No abnormal bleeding/bruising, No night sweats Integumentary: No rash Physical Exam Date Time Temp Pulse Resp B/P Pulse Ox O2 Delivery O2 Flow Rate FiO2 10/14/16 08:08 36.5 105 18 155/96 96 Room Air 10/14/16 08:00 Room Air 10/14/16 04:00 Room Air 10/14/16 03:39 36.9 103 21 168/97 90 Room Air 10/13/16 23:59 Room Air 10/13/16 23:26 37.0 111 20 142/81 91 Room Air 10/13/16 21:10 130 10/13/16 20:00 Room Air 10/13/16 19:50 37.0 125 20 157/88 94 Room Air 10/13/16 16:23 36.4 97 18 153/87 94 Room Air 10/13/16 15:20 103 30 159/87 95 10/13/16 13:35 106 18 142/95 95 Room Air 10/13/16 12:21 112 31 10/13/16 12:16 107 21 95 10/13/16 12:11 109 21 96 10/13/16 12:06 106 21 94 10/13/16 12:01 107 27 94 10/13/16 11:57 158/84 10/13/16 11:57 104 20 158/84 96 Room Air 10/13/16 11:56 103 21 96 10/13/16 11:51 96 20 96 10/13/16 11:46 107 25 98 10/13/16 11:41 121 23 97 10/13/16 11:36 120 21 96 10/13/16 11:31 123 28 96 10/13/16 11:26 122 27 97 10/13/16 11:21 118 32 97 10/13/16 11:16 117 28 97 10/13/16 11:11 126 28 10/13/16 11:06 114 34 97 10/13/16 11:01 118 24 96 10/13/16 10:56 117 22 95 10/13/16 10:51 119 23 94 10/13/16 10:46 101 21 94 10/13/16 10:41 104 21 95 General Appearance: + mild distress (due to pain) Head: normocephalic, atraumatic Eyes: EOMI ENT: pharynx normal Neck: supple Respiratory/Chest: chest non-tender, lungs clear Cardiovascular: regular rate, rhythm, no murmur Abdomen/GI: soft, + tenderness (exquisitely tender to palpation diffusely) Extremities/Musculoskelatal: no calf tenderness, no pedal edema Neurologic/Psych: no motor/sensory deficits, alert, oriented x 3 Skin: warm/dry, no rash Laboratory Results Last 24 Hours Test 10/13/16 11:17 10/14/16 00:00 10/14/16 07:10 10/14/16 07:17 Urine Color YELLOW Urine Appearance CLEAR Urine pH 7.0 Urine Specific [place] 1.013 Urine Protein NEG Urine Glucose (UA) NEG Urine Ketones NEG Urine Occult Blood 1+ Urine Nitrite NEG Urine Bilirubin NEG Urine Urobilinogen NEG Urine Leukocyte Esterase TRACE Urine WBC (Auto) 5-10 /hpf Urine RBC (Auto) 5-10 /hpf Urine Hyaline Casts (Auto) 1-5 /lpf Urine Epithelial Cells (Auto) 20-30 /lpf Urine Bacteria (Auto) NEG Activated Partial Thromboplast Time 46.6 SECONDS 46.0 SECONDS Partial Thromboplastin Ratio 1.8 1.8 White Blood Count 13.18 K/uL Red Blood Count 4.26 M/uL Hemoglobin 11.8 g/dL Hematocrit 35.2 % Mean Corpuscular Volume 82.6 fL Mean Corpuscular Hemoglobin 27.7 pg Mean Corpuscular Hemoglobin Concent 33.5 g/dl RDW Standard Deviation 48.5 fL RDW Coefficient of Variation 16.1 % Platelet Count 196 K/uL Mean Platelet Volume 9.0 fL Sodium Level 132 mmol/L Potassium Level 4.0 mmol/L Chloride Level 96 mmol/L Carbon Dioxide Level 24 mmol/L Anion Gap 12.0 mmol/L Blood Urea Nitrogen 11 mg/dl Creatinine 0.41 mg/dl Est Creatinine Clear Calc Drug Dose 108.3 ml/min Estimated GFR () 118.0 Estimated GFR (Non- 101.8 BUN/Creatinine Ratio 27.6 Random Glucose 114 mg/dl Calcium Level 8.4 mg/dl Assessment & Plan Ms. Lopez is a 76 year old woman who was reportedly diagnosed recently with peritoneal carcinomatosis from ovarian cancer. During her last hospital stay, she was found to have some neurologic deficits and was found to have an epidural fluid collection/hematoma in her thoracic spine. She was sent to [facility], where she had surgical decompression. She returned last night because of worsening chest and back pain. She was found to have extensive bilateral PEs and LE DVTs. The ER contacted the on-call neurosurgeon for the group at [facility] , who told them it was OK to anticoagulate her. She is now on a heparin drip. She will need to be fully anticoagulated for at least 3 months and likely indefinitely, given her malignancy. I will reach back out to her Neurosurgeon to clarify his recommendations regarding full AC. If he is comfortable with prolonged anticoagulation, then that will be our plan. Usually, the role for IVC filters is in patients who cannot be safely anticoagulated for a defined period of time, as if filters are not retrieved, they can be thrombogenic themselves. If neurosurgery is not comfortable with long-term AC, then we can consider a filter until such time as AC becomes safer. Otherwise, I would continue her heparin and transition her to Lovenox.
[2016-10-14 11:50] VITALS: BP 145/81; PULSE 94; TEMP 36.6; O2SAT 92
[2016-10-14 15:31] VITALS: BP 121/72; PULSE 105; TEMP 36.8; O2SAT 91
[2016-10-14 15:46] LABS: PARTIAL THROMBOPLASTIN RATIO 1.8
[2016-10-14] MEDS ORDERED: SODIUM CHLORIDE 0.65% NA SOLN 45 ML (OCEAN) ONE (16:45)
[2016-10-14] MEDS ORDERED: SODIUM CHLORIDE 0.65% NA SOLN 45 ML (OCEAN) PRN (16:45)
--- NOTE | 2016-10-14 16:53 | Hospitalist Progress Note ---
Hospitalist Progress Note Date of Service Oct 14, 2016. Subjective Pt evaluation today including: conversation w/ patient, conversation w/ family , physical exam, chart review, lab review, review of studies, conversation w/ erp implementation consultant (Oncology), review of inpatient medication list Voiding: franco catheter in place Pt having chest pain in upper back mostly, some SOB, very tired from pain meds. C/o dry nose and was supposed to have Urology appt soon for indwelling Franco for ?neurogenic bladder since her spine surgery. Constitutional: No fever Respiratory: No cough Cardiovascular: + chest pain Abdomen: No constipation, No pain All Other Systems: Reviewed and Negative Objective Vital Signs Date Time Temp Pulse Resp B/P Pulse Ox O2 Delivery O2 Flow Rate FiO2 10/14/16 16:00 Room Air 10/14/16 15:31 36.8 105 18 121/72 91 Room Air 10/14/16 12:00 Room Air 10/14/16 11:50 36.6 94 20 145/81 92 Room Air 10/14/16 08:08 36.5 105 18 155/96 96 Room Air 10/14/16 08:00 Room Air 10/14/16 04:00 Room Air 10/14/16 03:39 36.9 103 21 168/97 90 Room Air 10/13/16 23:59 Room Air 10/13/16 23:26 37.0 111 20 142/81 91 Room Air 10/13/16 21:10 130 10/13/16 20:00 Room Air 10/13/16 19:50 37.0 125 20 157/88 94 Room Air Physical Exam General Appearance: WD/WN, no apparent distress Eyes: normal inspection, sclerae normal Neck: trachea midline Respiratory/Chest: lungs clear, normal breath sounds, no respiratory distress, no accessory muscle use Cardiovascular: regular rate, rhythm, no edema, no gallop, no murmur Abdomen: normal bowel sounds, soft, no organomegaly, + tenderness (in mid abdomen without guarding or rebound) Extremities: non-tender, normal inspection, no pedal edema, no calf tenderness Neurologic/Psychiatric: + pertinent finding (drowsy, answers questions but hten falls asleep) Skin: normal color, warm/dry, no rash Laboratory Results Last 24 Hours Test 10/14/16 00:00 10/14/16 07:10 10/14/16 07:17 10/14/16 15:15 Activated Partial Thromboplast Time 46.6 SECONDS 46.0 SECONDS 47.6 SECONDS Partial Thromboplastin Ratio 1.8 1.8 1.8 White Blood Count 13.18 K/uL Red Blood Count 4.26 M/uL Hemoglobin 11.8 g/dL Hematocrit 35.2 % Mean Corpuscular Volume 82.6 fL Mean Corpuscular Hemoglobin 27.7 pg Mean Corpuscular Hemoglobin Concent 33.5 g/dl RDW Standard Deviation 48.5 fL RDW Coefficient of Variation 16.1 % Platelet Count 196 K/uL Mean Platelet Volume 9.0 fL Sodium Level 132 mmol/L Potassium Level 4.0 mmol/L Chloride Level 96 mmol/L Carbon Dioxide Level 24 mmol/L Anion Gap 12.0 mmol/L Blood Urea Nitrogen 11 mg/dl Creatinine 0.41 mg/dl Est Creatinine Clear Calc Drug Dose 108.3 ml/min Estimated GFR () 118.0 Estimated GFR (Non- 101.8 BUN/Creatinine Ratio 27.6 Random Glucose 114 mg/dl Calcium Level 8.4 mg/dl Assessment and Plan This pt is a 76-year-old female here with bilateral pulmonary emboli, bilateral LE DVTs, recent spinal surgery and ovarian cancer with abdominal carcinomatosis. Pulmonary embolism Bilateral, Bilateral DVTs : -cautiously use heparin drip and case d/w Neurosurgeon at [facility] by Dr. Vu Andres who agreed to treat PE outweighs risk of bleeding from recent spine surgery -consult hematology/oncology appreciated-plans for Lovenox intermodal customer service in setting of malignancy with DVT/PE - there was discussion about needing an A-port, we can coordinate this with hematology/oncology and perhaps temporary cease the heparin and have it placed during her hospital stay. --> Consult Gen Surgery to see if could be done while here after PEs stabilized on heparin gtt Paroxysmal atrial fibrillation, Sinus tachycardia secondary to large PEs-she is in sinus rhythm by EKG an on tele - We will maintain her metoprolol with p.r.n. backup. -continue telemetry constipation, -we will maintain all of her bowel regimen from home -MiraLax as needed Indwelling Franco/Bladder dysfunction since back surgery/Epidural hematoma -consult Urology -maintain Franco for now Ovarian CA-Oncology following -plans to start chemo after port placed The patient is a full code.
[2016-10-14] MEDS ORDERED: PANTOprazole SOD 40 MG TAB PO ONE (18:16)
[2016-10-14 19:17] VITALS: BP 138/82; PULSE 113; TEMP 36.5; O2SAT 95
[2016-10-14 23:20] VITALS: BP 148/88; PULSE 108; TEMP 36.7; O2SAT 96
[2016-10-15] MEDS: OXYCODONE HCL IR 5 MG TAB (IMMEDIATE RELEASE) PO PRN ×6 (00:24→22:28)
[2016-10-15 04:50] VITALS: BP 143/83; PULSE 105; TEMP 36.7; O2SAT 92
[2016-10-15 06:14] LABS: HEMATOCRIT 34.6 % (37-47); MEAN CELL VOLUME 83.2 fL (80-100); MEAN CORPUSCULAR HEMOGLOBIN 28.1 pg (25-34); MEAN CORPUSCULAR HGB CONC 33.8 g/dl (32-36); MEAN PLATELET VOLUME 8.8 fL (7.4-10.4); PLATELET COUNT 212 K/uL (130-400); RED BLOOD COUNT 4.16 M/uL (4.2-5.4); WHITE BLOOD COUNT 10.99 K/uL (4.8-10.8)
[2016-10-15 06:32] LABS: PARTIAL THROMBOPLASTIN RATIO 1.8
[2016-10-15 06:46] LABS: CALCIUM 8.8 mg/dl (8.5-10.1); CREATININE 0.53 mg/dl (0.60-1.20); MAGNESIUM 2.1 mg/dl (1.8-2.4)
[2016-10-15 07:27] VITALS: BP 105/73; PULSE 108; TEMP 36.7; O2SAT 93
[2016-10-15] MEDS: DOCUSATE SODIUM 100 MG CAP PO SCH ×2 (09:42→19:54)
[2016-10-15] MEDS: CALCIUM 600MG + VIT D 400 IU TAB PO SCH (09:42)
[2016-10-15] MEDS: PANTOprazole SOD 40 MG TAB PO SCH (09:42)
[2016-10-15] MEDS: METOPROLOL TARTRATE 50 MG TAB PO SCH ×2 (09:42→19:54)
[2016-10-15] MEDS: DOCUSATE SODIUM/SENNA 50/8.6MG TAB PO SCH ×2 (09:43→19:54)
[2016-10-15] MEDS: OSELTAMIVIR PHOSPHATE 75 MG CAP PO SCH (09:43)
[2016-10-15] MEDS: LIDODERM (LIDOCAINE) PATCH 5% TD SCH (09:43)
[2016-10-15] MEDS: HEPARIN 25,000 UNIT/500ML D5W 500 ML IV PRN (09:45)
[2016-10-15] MEDS: POLYETHYLENE (MIRALAX) 17 GM PACK PO SCH (09:47)
--- NOTE | 2016-10-15 09:49 | Urology Consultation ---
History General Date of Service: Oct 15, 2016. Primary Care Physician: Adelso Ruiz M.D. Pt seen a urologist before?: No History of Present Illness 76 year old female admitted for PE s/p laminectomy 4 weeks ago at [facility] w / post op epidural hematoma. She is currently on heparin drip. Urology consulted to evaluate pt for neurogenic bladder s/p spine surgery. Pt is also diagnosed with Ovarian cancer in Aug 2016. She is to get a port in the future to start chemo- this was to start in September but has not received this yet.. Since her surgery she has been unable to void on her own. Pt reports she has not had an indwelling franco but was straight cathed 4 times per day. She was admitted with franco - unsure when indwelling franco was placed. Draining clear yellow urine White count is normalizing- currently 10.99 Hgb/Hct- 11.7/34.6 creatinine 0.53 Afebrile. Sinus tach on monitor. BP stable. Prior to her surgery she denies any difficulty with urination or bothersome symptoms. Nocturia 0-1, stream was good, no hesistancy, frequency, urgency or dysuria. Laboratory Last 24 Hours Test 10/14/16 15:15 10/15/16 05:55 Activated Partial Thromboplast Time 47.6 SECONDS 47.0 SECONDS Partial Thromboplastin Ratio 1.8 1.8 White Blood Count 10.99 K/uL Red Blood Count 4.16 M/uL Hemoglobin 11.7 g/dL Hematocrit 34.6 % Mean Corpuscular Volume 83.2 fL Mean Corpuscular Hemoglobin 28.1 pg Mean Corpuscular Hemoglobin Concent 33.8 g/dl RDW Standard Deviation 48.4 fL RDW Coefficient of Variation 15.9 % Platelet Count 212 K/uL Mean Platelet Volume 8.8 fL Sodium Level 132 mmol/L Potassium Level 4.0 mmol/L Chloride Level 95 mmol/L Carbon Dioxide Level 27 mmol/L Anion Gap 10.0 mmol/L Blood Urea Nitrogen 11 mg/dl Creatinine 0.53 mg/dl Est Creatinine Clear Calc Drug Dose 83.8 ml/min Estimated GFR () 108.4 Estimated GFR (Non- 93.5 BUN/Creatinine Ratio 20.0 Random Glucose 104 mg/dl Calcium Level 8.8 mg/dl Magnesium Level 2.1 mg/dl Current Inpatient Medications Medications (Trade) Dose Ordered Sig/Bianca Route Start Time Stop Time Status Last Admin Dose Admin Ioversol (Optiray 320) 111 ml UD PRN IV 10/13/16 11:15 10/17/16 11:14 Bisacodyl (Dulcolax Supp) 10 mg DAILY VA 10/14/16 09:00 11/13/16 08:59 10/14/16 10:04 10 MG Cyclobenzaprine HCl (Flexeril Tab) 10 mg Q8 PRN PO 10/13/16 14:15 11/12/16 14:14 10/13/16 22:44 10 MG Docusate Sodium (coLACE CAP) 100 mg BID PO 10/13/16 21:00 11/12/16 20:59 10/14/16 21:05 100 MG Lidocaine (Lidoderm Patch 5%) 1 patch DAILY TD 10/14/16 09:00 11/13/16 08:59 10/14/16 08:09 1 PATCH Metoprolol Tartrate (Lopressor Tab) 50 mg BID PO 10/13/16 21:00 11/12/16 20:59 10/14/16 21:05 50 MG Oseltamivir Phosphate (Tamiflu Cap) 75 mg DAILY PO 10/14/16 09:00 10/19/16 08:59 10/14/16 08:09 75 MG Senna/Docusate Sodium (Senokot S Tab) 1 tab BID PO 10/13/16 21:00 11/12/16 20:59 10/14/16 21:05 1 TAB Calcium/Vitamin D (Caltrate Plus Tab) 1 tab DAILY PO 10/14/16 09:00 11/13/16 08:59 10/14/16 08:08 1 TAB Polyethylene (Miralax Powder Packet) 17 gm DAILY PO 10/14/16 09:00 11/13/16 08:59 10/14/16 08:08 17 GM Miscellaneous (Remove Lidoderm Patch) 1 ea DAILY@21 N/A 10/13/16 21:00 11/12/16 20:59 10/14/16 21:05 1 EA Acetaminophen (Tylenol Tab) 650 mg Q4H PRN PO 10/13/16 14:15 11/12/16 14:14 Al Hydrox/Mg Hydrox/Simethicone (Maalox Max Susp) 15 ml Q4H PRN PO 10/13/16 14:15 11/12/16 14:14 Magnesium Hydroxide (Milk Of Magnesia Susp) 30 ml Q12H PRN PO 10/13/16 14:15 11/12/16 14:14 Ondansetron HCl (Zofran Inj) 4 mg Q6H PRN IV 10/13/16 14:15 11/12/16 14:14 Polyethylene (Miralax Powder Packet) 17 gm DAILY PRN PO 10/13/16 14:15 11/12/16 14:14 Morphine Sulfate (MoRPHine SULFATE INJ) 4 mg Q4H PRN IV 10/13/16 14:30 10/27/16 14:29 10/13/16 23:55 4 MG Morphine Sulfate (MoRPHine SULFATE INJ) 2 mg Q4H PRN IV 10/13/16 14:30 10/27/16 14:29 Metoprolol Tartrate 5 mg 5 mg Q4 PRN IV 10/13/16 14:30 11/12/16 14:29 10/13/16 21:10 5 MG Heparin Sodium/ Dextrose (Heparin 25,000 Unit/500ml D5W) 500 ml @ 26 mls/hr [id number] PRN IV 10/13/16 16:45 11/12/16 16:44 10/14/16 14:44 26 MLS/HR Sodium Chloride ([place] Nasal [place]) 2 sprays Q4 PRN NA 10/14/16 16:45 11/13/16 16:44 Oxycodone HCl (Roxicodone Immediate Rel Tab) 10 mg Q4 PRN PO 10/14/16 20:00 10/28/16 19:59 10/15/16 05:58 10 MG Pantoprazole Sodium (Protonix Tab) 40 mg QAM PO 10/15/16 09:00 11/14/16 08:59 Labs were reviewed and are within normal limits unless listed below. Labs are available in the chart and at [facility] Problem List Medical Problems: (1) Back pain Status: Acute (2) Bilateral pulmonary embolism Status: Acute (3) Epidural hematoma Status: Acute Past History A Fib, cancer - ovarian Past Surgical History: orthopedic surgery (laminectomy) Family History Heart disease Social History Hx Tobacco Use In Past Year?: No Smoking: non-smoker Marital status: Occupation status: retired Immunizations History of Influenza Vaccine: Yes Influenza Vaccine Date: Dec 15, 2010 History of Tetanus Vaccine?: Unknown History of Pneumococcal: Yes Pneumococcal Date: Dec 15, 2010 History of Hepatitis B Vaccine: No History of MDRO No Allergies Coded Allergies: Oxaprozin (Verified Allergy, Intermediate, FEET SWELLING, SKIN PEELING, ) Piperacillin (Verified Allergy, Intermediate, hives, 10/13/16) Tazobactam (Verified Allergy, Intermediate, hives, 10/13/16) Medications Home Medications: Home Meds and Scripts Medications Dose Route/Sig Max Daily Dose Days Date Category Dose Instructions Roxicodone Ir (Oxycodone HCl) 5 Mg Tab 5 Mg PO Q2H PRN 10/13/16 Reported Flexeril (Cyclobenzaprine Hcl) 10 Mg Tab 10 Mg PO Q8 PRN 10/13/16 Reported Tamiflu (Oseltamivir Phosphate) 75 Mg Cap 75 Mg PO DAILY 10/13/16 Reported X7 DAYS STARTED 10/12/16. STOP 10/19/16 Senna-S (Sennosides-Docusate Sodium) 1 Tab Tab 1 Tab PO BID 10/13/16 Reported Miralax (Polyethylene Glycol 3350) 1 Pow Pow 17 Gm PO DAILY 10/13/16 Reported Lopressor (Metoprolol Tartrate) 50 Mg Tab 50 Mg PO BID 10/13/16 Reported Lidocaine 1 Patch Tdsy 1 Patch TOP DAILY 10/13/16 Reported APPLY TO EITHER SIDE OF LOWER SPINE. [place] 10/325 Tab (Acetaminophen/Hydrocodone Bitart) 1 Tab Tab 1 Tab PO Q4 PRN 10/13/16 Reported MAX 3GM OR 9 TABS TOTAL COMBINED TYLENOL / 24 HR (TIME CRITICAL : GIVE W/I 30 MIN OF MAR TIME) Colace (Docusate Sodium) 100 Mg Cap 1 Cap PO BID 30 10/13/16 Reported [place] 500/200 D-3 (Calcium Carbonate-Vitamin D) 1 Tab Tab 1 Tab PO DAILY 10/13/16 Reported WITH BREAKFAST. Dulcolax (Bisacodyl) 10 Mg Sup 1 Supp VA DAILY 10/13/16 Reported PER NEUROGENIC BOWEL PROGRAM Inpatient Medications: Current Inpatient Medications Medications (Trade) Dose Ordered Sig/Bianca Route Start Time Stop Time Status Last Admin Dose Admin Ioversol (Optiray 320) 111 ml UD PRN IV 10/13/16 11:15 10/17/16 11:14 Bisacodyl (Dulcolax Supp) 10 mg DAILY VA 10/14/16 09:00 11/13/16 08:59 10/14/16 10:04 10 MG Cyclobenzaprine HCl (Flexeril Tab) 10 mg Q8 PRN PO 10/13/16 14:15 11/12/16 14:14 10/13/16 22:44 10 MG Docusate Sodium (coLACE CAP) 100 mg BID PO 10/13/16 21:00 11/12/16 20:59 10/14/16 21:05 100 MG Lidocaine (Lidoderm Patch 5%) 1 patch DAILY TD 10/14/16 09:00 11/13/16 08:59 10/14/16 08:09 1 PATCH Metoprolol Tartrate (Lopressor Tab) 50 mg BID PO 10/13/16 21:00 11/12/16 20:59 10/14/16 21:05 50 MG Oseltamivir Phosphate (Tamiflu Cap) 75 mg DAILY PO 10/14/16 09:00 10/19/16 08:59 10/14/16 08:09 75 MG Senna/Docusate Sodium (Senokot S Tab) 1 tab BID PO 10/13/16 21:00 11/12/16 20:59 10/14/16 21:05 1 TAB Calcium/Vitamin D (Caltrate Plus Tab) 1 tab DAILY PO 10/14/16 09:00 11/13/16 08:59 10/14/16 08:08 1 TAB Polyethylene (Miralax Powder Packet) 17 gm DAILY PO 10/14/16 09:00 11/13/16 08:59 10/14/16 08:08 17 GM Miscellaneous (Remove Lidoderm Patch) 1 ea DAILY@21 N/A 10/13/16 21:00 11/12/16 20:59 10/14/16 21:05 1 EA Acetaminophen (Tylenol Tab) 650 mg Q4H PRN PO 10/13/16 14:15 11/12/16 14:14 Al Hydrox/Mg Hydrox/Simethicone (Maalox Max Susp) 15 ml Q4H PRN PO 10/13/16 14:15 11/12/16 14:14 Magnesium Hydroxide (Milk Of Magnesia Susp) 30 ml Q12H PRN PO 10/13/16 14:15 11/12/16 14:14 Ondansetron HCl (Zofran Inj) 4 mg Q6H PRN IV 10/13/16 14:15 11/12/16 14:14 Polyethylene (Miralax Powder Packet) 17 gm DAILY PRN PO 10/13/16 14:15 11/12/16 14:14 Morphine Sulfate (MoRPHine SULFATE INJ) 4 mg Q4H PRN IV 10/13/16 14:30 10/27/16 14:29 10/13/16 23:55 4 MG Morphine Sulfate (MoRPHine SULFATE INJ) 2 mg Q4H PRN IV 10/13/16 14:30 10/27/16 14:29 Metoprolol Tartrate 5 mg 5 mg Q4 PRN IV 10/13/16 14:30 11/12/16 14:29 10/13/16 21:10 5 MG Heparin Sodium/ Dextrose (Heparin 25,000 Unit/500ml D5W) 500 ml @ 26 mls/hr [id number] PRN IV 10/13/16 16:45 11/12/16 16:44 10/14/16 14:44 26 MLS/HR Sodium Chloride ([place] Nasal [place]) 2 sprays Q4 PRN NA 10/14/16 16:45 11/13/16 16:44 Oxycodone HCl (Roxicodone Immediate Rel Tab) 10 mg Q4 PRN PO 10/14/16 20:00 10/28/16 19:59 10/15/16 05:58 10 MG Pantoprazole Sodium (Protonix Tab) 40 mg QAM PO 10/15/16 09:00 11/14/16 08:59 Review of Systems Review of Systems Constitutional: No fever Neurological: No dizzy Endocrine: No excessive thirst Gastrointestinal: + constipation Cardiovascular: + chest pain (on admission due to PE.) Respiratory: No shortness of breath Skin: No rash Musculoskeletal: No joint pain Blood / Lymphatic: No bleed easily Ears / Nose / Throat: No hearing loss Female : + see HPI Physical Exam Vital Signs: Vital Signs Past 12 Hours Date Time Temp Pulse Resp B/P Pulse Ox O2 Delivery O2 Flow Rate FiO2 10/15/16 08:00 Room Air 10/15/16 07:27 36.7 108 16 105/73 93 Room Air 10/15/16 04:50 36.7 105 20 143/83 92 Room Air 10/15/16 04:00 Room Air 10/14/16 23:59 Room Air 10/14/16 23:20 36.7 108 20 148/88 96 Room Air Physical Exam: General Appearance: WD/WN, no apparent distress ENT: normal ENT inspection Neck: no JVD Respiratory/Chest: no respiratory distress, no accessory muscle use Extremities: normal range of motion, normal inspection Neurologic/Psychiatric: alert, normal mood/affect, oriented x 3 Skin: normal color, warm/dry Assessment & Plan Assessment & Plan Urinary retention with questionable neurogenic bladder. Pt reports she has only been catheterized intermittently at [facility]. Recommend bladder rest for 7 days with indwelling catheter- then trial of void. If unable to pass trial of void would leave it up to pt preference if she has intermittent catheterization vs indwelling catheter since her current status is poor she will be undergoing chemo in the future. Will plan to further assess bladder function on an outpt basis with urodynamic testing. May consider neurology referral as well. Given her current status with PE and Ovarian cancer this testing may/can be delayed. Will send urine for culture. Should hematuria result due to catheter and heparin drip ok to d/c franco and straight cath q shift and prn. Thanks for the consult.Will continue to monitor.
[2016-10-15] MEDS: BISACODYL 10 MG SUPP PR SCH (10:25)
--- NOTE | 2016-10-15 10:32 | Hematology/Oncology Prog Note ---
Hematology/Onc Progress Note Date of Service Oct 15, 2016. Diagnoses Ovarian cancer DVT/PE Medications Medications Administered Medications (Trade) Dose Ordered Sig/Bianca Route Start Time Stop Time Status Last Admin Dose Admin Sodium Chloride (Nss 1000ml) 1,000 ml @ 999 mls/hr Q1H1M STAT IV 10/13/16 11:08 10/13/16 12:08 DC 10/13/16 11:22 999 MLS/HR Acetaminophen/ Hydrocodone Bitart ([place] 5/325 Tab) 2 tab ONE STAT PO 10/13/16 11:08 10/13/16 11:10 DC 10/13/16 11:24 2 TAB Bisacodyl (Dulcolax Supp) 10 mg DAILY SD 10/14/16 09:00 11/13/16 08:59 10/14/16 10:04 10 MG Cyclobenzaprine HCl (Flexeril Tab) 10 mg Q8 PRN PO 10/13/16 14:15 11/12/16 14:14 10/13/16 22:44 10 MG Docusate Sodium (coLACE CAP) 100 mg BID PO 10/13/16 21:00 11/12/16 20:59 10/15/16 09:42 100 MG Lidocaine (Lidoderm Patch 5%) 1 patch DAILY TD 10/14/16 09:00 11/13/16 08:59 10/15/16 09:43 1 PATCH Metoprolol Tartrate (Lopressor Tab) 50 mg BID PO 10/13/16 21:00 11/12/16 20:59 10/15/16 09:42 50 MG Oseltamivir Phosphate (Tamiflu Cap) 75 mg DAILY PO 10/14/16 09:00 10/19/16 08:59 10/15/16 09:43 75 MG Senna/Docusate Sodium (Senokot S Tab) 1 tab BID PO 10/13/16 21:00 11/12/16 20:59 10/15/16 09:43 1 TAB Calcium/Vitamin D (Caltrate Plus Tab) 1 tab DAILY PO 10/14/16 09:00 11/13/16 08:59 10/15/16 09:42 1 TAB Polyethylene (Miralax Powder Packet) 17 gm DAILY PO 10/14/16 09:00 11/13/16 08:59 10/15/16 09:47 17 GM Miscellaneous (Remove Lidoderm Patch) 1 ea DAILY@21 N/A 10/13/16 21:00 11/12/16 20:59 10/14/16 21:05 1 EA Oxycodone HCl (Roxicodone Immediate Rel Tab) 10 mg Q6 PRN PO 10/13/16 14:30 10/14/16 18:17 DC 10/14/16 11:52 10 MG Morphine Sulfate (MoRPHine SULFATE INJ) 4 mg Q4H PRN IV 10/13/16 14:30 10/27/16 14:29 10/13/16 23:55 4 MG Metoprolol Tartrate 5 mg 5 mg Q4 PRN IV 10/13/16 14:30 11/12/16 14:29 10/13/16 21:10 5 MG Heparin Sodium/ Dextrose 500 ml @ 26 mls/hr [id number] PRN IV 10/13/16 16:45 11/12/16 16:44 10/15/16 09:45 26 MLS/HR Heparin Sodium (Porcine) 2000 unit/Syringe 2 ml @ 10 mls/min NOW STAT IV 10/14/16 00:50 10/14/16 00:51 DC 10/14/16 01:00 10 MLS/MIN Heparin Sodium (Porcine)/Syringe (Heparin Iv Bolus/Syringe) 2 ml @ 10 mls/min TODAY@0915 ONCE IV 10/14/16 09:15 10/14/16 09:16 DC 10/14/16 10:04 10 MLS/MIN Sodium Chloride ([place] Nasal [place]) 2 sprays NOW ONCE NA 10/14/16 16:45 10/14/16 16:50 DC 10/14/16 18:15 2 SPRAYS Oxycodone HCl (Roxicodone Immediate Rel Tab) 10 mg Q4 PRN PO 10/14/16 20:00 10/28/16 19:59 10/15/16 05:58 10 MG Pantoprazole Sodium (Protonix Tab) 40 mg QAM PO 10/15/16 09:00 11/14/16 08:59 10/15/16 09:42 40 MG Pantoprazole Sodium (Protonix Tab) 40 mg 1816 ONCE PO 10/14/16 18:16 10/14/16 18:29 DC 10/14/16 21:05 40 MG Subjective Ms. Lopez continues to be in fairly significant pain. Her team is modifying her pain regimen. She denies any worsening shortness of breath, chest pain, or palpitations. She is also constipated and is about to receive a suppository laxative. Review of Systems: Constitutional: No chills, No fever, No sweats ENT: No unusual epistaxis Respiratory: No cough, No hemoptysis, No shortness of breath Cardiovascular: + chest pain (Pleurisy), No palpitations Abdomen: + constipation, + pain, No nausea, No vomiting Female : No dysuria, No hematuria Neurologic: No numbness/tingling, No weakness Heme: No abnormal bleeding/bruising, No swollen lymph nodes Skin: No new/changing skin lesions, No rash Vital Signs Vital Signs Past 12 Hours Date Time Temp Pulse Resp B/P Pulse Ox O2 Delivery O2 Flow Rate FiO2 10/15/16 08:00 Room Air 10/15/16 07:27 36.7 108 16 105/73 93 Room Air 10/15/16 04:50 36.7 105 20 143/83 92 Room Air 10/15/16 04:00 Room Air 10/14/16 23:59 Room Air 10/14/16 23:20 36.7 108 20 148/88 96 Room Air Physical Exam Constitutional: Level of Distress: mild distress (due to pain), chronically ill Psychiatric: Mental Status: active & alert Orientation: oriented except where noted Eyes: EOM: EOMI ENMT: pharynx normal Neck: supple Lungs: Respiratory Effort: no dyspnea Auscuitation: CTA except as noted Cardiovascular: Heart Auscultation: RRR, no murmurs Abdomen: Inspection & Palpation: soft, non-distended, pertinent finding (diffusely tender to palpation over all abdominal quadrants) Extremities: no cyanosis, no edema Neurologic: Cranial Nerves: grossly intact Laboratory Last 24 Hours Test 10/14/16 15:15 10/15/16 05:55 Activated Partial Thromboplast Time 47.6 SECONDS 47.0 SECONDS Partial Thromboplastin Ratio 1.8 1.8 White Blood Count 10.99 K/uL Red Blood Count 4.16 M/uL Hemoglobin 11.7 g/dL Hematocrit 34.6 % Mean Corpuscular Volume 83.2 fL Mean Corpuscular Hemoglobin 28.1 pg Mean Corpuscular Hemoglobin Concent 33.8 g/dl RDW Standard Deviation 48.4 fL RDW Coefficient of Variation 15.9 % Platelet Count 212 K/uL Mean Platelet Volume 8.8 fL Sodium Level 132 mmol/L Potassium Level 4.0 mmol/L Chloride Level 95 mmol/L Carbon Dioxide Level 27 mmol/L Anion Gap 10.0 mmol/L Blood Urea Nitrogen 11 mg/dl Creatinine 0.53 mg/dl Est Creatinine Clear Calc Drug Dose 83.8 ml/min Estimated GFR () 108.4 Estimated GFR (Non- 93.5 BUN/Creatinine Ratio 20.0 Random Glucose 104 mg/dl Calcium Level 8.8 mg/dl Magnesium Level 2.1 mg/dl Assessment & Plan 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 She has not yet started therapy for her disease. She was admitted with worsening chest pain and was found to have large bilateral PEs and DVTs. She had recent T-spine surgery for an epidural hematoma. I spoke personally with the physician salesperson automobiles for her neurosurgeon at [facility]. They felt, and I agree, that while there is certainly a risk of rebleeding associated with full anticoagulation, it is outweighed by the imminent threat to her life posed by her VTEs. We will continue with heparin for now and, as she is getting closer to discharge, transition her to Lovenox. We will also need to arrange for her to come to oncology clinic to discuss treatment for her cancer. Finally, her pain is poorly controlled. If a suitable regimen cannot be found, a consultation with pain and palliative care may be helpful.
[2016-10-15 11:59] VITALS: BP 118/68; PULSE 92; TEMP 36.7; O2SAT 92
--- NOTE | 2016-10-15 12:47 | SURGICAL CONSULTATION ---
DATE OF CONSULTATION: 10/15/2016 I have been asked by Dr. Cantu to see this 76-year-old female who is admitted with pulmonary emboli. She was diagnosed with ovarian carcinoma and was to undergo chemotherapy. She was found to have an epidural hematoma, which was treated surgically. She had some atrial fibrillation at that time as well. She was recovering from that when she developed some discomfort in her chest with mild shortness of breath. CT scan demonstrated pulmonary emboli. She is now on a heparin drip. She was to be seen for placement of an A-port central venous access catheter. We have been consulted for evaluation for possible placement of an A-port during this hospitalization. She has never had previous thoracic surgery and to her knowledge has never had cannulization of either of the subclavian veins. PAST MEDICAL HISTORY: For ovarian cancer, atrial fibrillation. PAST SURGICAL HISTORY: For a left total knee replacement. MEDICATIONS: At home included hydrocodone, Dulcolax, Colace, calcium D, Flexeril, lidocaine patch, Tamiflu. ALLERGIES: OXAPROZIN, PIPERACILLIN, AND TAZOBACTAM. PHYSICAL EXAMINATION: GENERAL: Reveals a thin female sitting in a chair, but appears in no acute distress. VITAL SIGNS: Blood pressure 103/73, heart rate 108, respirations 16, temperature 36.7, pulse oximetry is 93% on room air. HEENT: Reveals the sclerae to be anicteric. Mucous membranes are moist. LUNGS: Clear. HEART: Regular, but she is mildly tachy. Her chest wall shows no scars or deformities. LABORATORY DATA: WBC 10.99, H\T\H is 11.7 and 34.6, platelet count 212,000. Sodium 132, potassium 4.0, chloride 95, CO2 of 27, BUN 11, creatinine 0.53, glucose 104. ASSESSMENT AND PLAN: I discussed timing of placement of the A-port. Dr. Cantu. The patient still has some tachycardia, has right heart strain on an echo. She is also on the heparin drip which they would prefer not to discontinue at the present time. Once her hemodynamics stabilize and the heparin can be discontinued, we may be able to then place the A-port. If that does not occur significantly before going home, then she can have the procedure as an outpatient. A postoperative anticoagulation regimen is being considered.
[2016-10-15] MEDS: CYCLOBENZAPRINE HCL 10 MG TAB PO PRN ×2 (14:11→22:28)
--- NOTE | 2016-10-15 15:14 | Hospitalist Progress Note ---
Hospitalist Progress Note Date of Service Oct 15, 2016. Subjective Pt evaluation today including: conversation w/ patient, physical exam, chart review, lab review, review of studies, review of inpatient medication list Pt having pain in her right shoulder blade and lower back that is the same pain she has had ever since her back surgery. No new pains, no chest pains. She had some BMs today. Slightly less tachycardic today. Constitutional: No fever Respiratory: No shortness of breath Cardiovascular: No chest pain Musculoskeletal: + muscle pain Female : No problem reported Neurologic: + numbness/tingling (in feet since her back injury/surgery), No problem reported Psychiatric: No problem reported All Other Systems: Reviewed and Negative Objective Vital Signs Date Time Temp Pulse Resp B/P Pulse Ox O2 Delivery O2 Flow Rate FiO2 10/15/16 11:59 36.7 92 16 118/68 92 Room Air 10/15/16 08:00 Room Air 10/15/16 07:27 36.7 108 16 105/73 93 Room Air 10/15/16 04:50 36.7 105 20 143/83 92 Room Air 10/15/16 04:00 Room Air 10/14/16 23:59 Room Air 10/14/16 23:20 36.7 108 20 148/88 96 Room Air 10/14/16 20:00 Room Air 10/14/16 19:17 36.5 113 18 138/82 95 Room Air 10/14/16 16:00 Room Air 10/14/16 15:31 36.8 105 18 121/72 91 Room Air Physical Exam General Appearance: + mild distress, + thin Eyes: normal inspection, sclerae normal Neck: trachea midline Respiratory/Chest: lungs clear, normal breath sounds, no respiratory distress, no accessory muscle use Cardiovascular: regular rate, rhythm, no edema, no gallop, no murmur Abdomen: normal bowel sounds, non tender, soft, + pertinent finding (+TTP over lower back and paraspinous muscles as well as left upper back inferior to scapula) Extremities: no pedal edema, no calf tenderness Neurologic/Psychiatric: alert, + depressed affect Skin: normal color, warm/dry, no rash, + pertinent finding (large incisional scar well healed over thoracic spine,nontender) Laboratory Results Last 24 Hours Test 10/14/16 15:15 10/15/16 05:55 Activated Partial Thromboplast Time 47.6 SECONDS 47.0 SECONDS Partial Thromboplastin Ratio 1.8 1.8 White Blood Count 10.99 K/uL Red Blood Count 4.16 M/uL Hemoglobin 11.7 g/dL Hematocrit 34.6 % Mean Corpuscular Volume 83.2 fL Mean Corpuscular Hemoglobin 28.1 pg Mean Corpuscular Hemoglobin Concent 33.8 g/dl RDW Standard Deviation 48.4 fL RDW Coefficient of Variation 15.9 % Platelet Count 212 K/uL Mean Platelet Volume 8.8 fL Sodium Level 132 mmol/L Potassium Level 4.0 mmol/L Chloride Level 95 mmol/L Carbon Dioxide Level 27 mmol/L Anion Gap 10.0 mmol/L Blood Urea Nitrogen 11 mg/dl Creatinine 0.53 mg/dl Est Creatinine Clear Calc Drug Dose 83.8 ml/min Estimated GFR () 108.4 Estimated GFR (Non- 93.5 BUN/Creatinine Ratio 20.0 Random Glucose 104 mg/dl Calcium Level 8.8 mg/dl Magnesium Level 2.1 mg/dl Assessment and Plan This pt is a 76-year-old female here with bilateral pulmonary emboli, bilateral LE DVTs, recent spinal surgery for spontaneous epidural hematoma, and ovarian cancer with abdominal carcinomatosis. Pulmonary embolism Bilateral, Bilateral DVTs : -cautiously use heparin drip and case d/w Neurosurgeon at [facility] by Dr. 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 --> Consult Gen Surgery to see if could be done while here after PEs stabilized on heparin gtt-->> D/w Dr. Crow and could do while on Lovenox injections as well so will go ahead and transition to Lovenox today -stop heparin gtt and start Lovenox 1mg/kg q12 simultaneously today as d/w Pharmacy Paroxysmal atrial fibrillation, Sinus tachycardia secondary to large PEs-she is in sinus rhythm by EKG an on tele. Tachycardia slightly improved today. ECHO with evidence of right heart strain from PEs - We will maintain her metoprolol with p.r.n. backup. -continue telemetry constipation-improved -we will maintain all of her bowel regimen from home -MiraLax as needed Indwelling Ladd/Bladder dysfunction since back surgery/Epidural hematoma -consult Urology appreciated-awaiting recommendations -maintain Ladd for now Ovarian CA-Oncology following -plans to start chemo after port placed The patient is a full code.
[2016-10-15 15:50] VITALS: BP 120/70; PULSE 97; TEMP 37.2; O2SAT 92
[2016-10-15] MEDS: ENOXAPARIN 60 MG/0.6 ML SYR SQ SCH (18:31)
[2016-10-15 19:53] VITALS: BP 120/73; PULSE 118; O2SAT 96
[2016-10-16] VITALS (8 sets, daily range): BP systolic 125–142; BP diastolic 72–85; PULSE 68–121; TEMP 36.5–36.9; O2SAT 90–95
[2016-10-16] MEDS: OXYCODONE HCL IR 5 MG TAB (IMMEDIATE RELEASE) PO PRN ×4 (06:16→21:46)
[2016-10-16] MEDS: ENOXAPARIN 60 MG/0.6 ML SYR SQ SCH ×2 (06:17→18:36)
[2016-10-16 07:06] LABS: HEMATOCRIT 33.3 % (37-47); MEAN CELL VOLUME 83.7 fL (80-100); MEAN CORPUSCULAR HEMOGLOBIN 28.1 pg (25-34); MEAN CORPUSCULAR HGB CONC 33.6 g/dl (32-36); MEAN PLATELET VOLUME 8.8 fL (7.4-10.4); PLATELET COUNT 256 K/uL (130-400); RED BLOOD COUNT 3.98 M/uL (4.2-5.4); WHITE BLOOD COUNT 9.26 K/uL (4.8-10.8)
[2016-10-16 07:38] LABS: BUN/CREATININE RATIO 18.6 (10-20); CALCIUM 8.9 mg/dl (8.5-10.1); CREATININE 0.59 mg/dl (0.60-1.20); POTASSIUM 4.8 mmol/L (3.5-5.1)
[2016-10-16] MEDS: BISACODYL 10 MG SUPP PR SCH (08:58)
[2016-10-16] MEDS: OSELTAMIVIR PHOSPHATE 75 MG CAP PO SCH (08:58)
[2016-10-16] MEDS: POLYETHYLENE (MIRALAX) 17 GM PACK PO SCH (08:58)
[2016-10-16] MEDS: DOCUSATE SODIUM/SENNA 50/8.6MG TAB PO SCH ×2 (08:58→20:53)
[2016-10-16] MEDS: DOCUSATE SODIUM 100 MG CAP PO SCH ×2 (08:58→20:53)
[2016-10-16] MEDS: CALCIUM 600MG + VIT D 400 IU TAB PO SCH (08:58)
[2016-10-16] MEDS: PANTOprazole SOD 40 MG TAB PO SCH (08:59)
[2016-10-16] MEDS: METOPROLOL TARTRATE 50 MG TAB PO SCH ×2 (08:59→20:54)
[2016-10-16] MEDS: LIDODERM (LIDOCAINE) PATCH 5% TD SCH (09:00)
--- NOTE | 2016-10-16 09:55 | Hematology/Oncology Prog Note ---
Hematology/Onc Progress Note Date of Service Oct 16, 2016. 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 Medications Medications Administered Medications (Trade) Dose Ordered Sig/Bianca Route Start Time Stop Time Status Last Admin Dose Admin Sodium Chloride (Nss 1000ml) 1,000 ml @ 999 mls/hr Q1H1M STAT IV 10/13/16 11:08 10/13/16 12:08 DC 10/13/16 11:22 999 MLS/HR Acetaminophen/ Hydrocodone Bitart ([place] 5/325 Tab) 2 tab ONE STAT PO 10/13/16 11:08 10/13/16 11:10 DC 10/13/16 11:24 2 TAB Bisacodyl (Dulcolax Supp) 10 mg DAILY VA 10/14/16 09:00 11/13/16 08:59 10/16/16 08:58 10 MG Cyclobenzaprine HCl (Flexeril Tab) 10 mg Q8 PRN PO 10/13/16 14:15 11/12/16 14:14 10/15/16 22:28 10 MG Docusate Sodium (coLACE CAP) 100 mg BID PO 10/13/16 21:00 11/12/16 20:59 10/16/16 08:58 100 MG Lidocaine (Lidoderm Patch 5%) 1 patch DAILY TD 10/14/16 09:00 11/13/16 08:59 10/16/16 09:00 1 PATCH Metoprolol Tartrate (Lopressor Tab) 50 mg BID PO 10/13/16 21:00 11/12/16 20:59 10/16/16 08:59 50 MG Oseltamivir Phosphate (Tamiflu Cap) 75 mg DAILY PO 10/14/16 09:00 10/19/16 08:59 10/16/16 08:58 75 MG Senna/Docusate Sodium (Senokot S Tab) 1 tab BID PO 10/13/16 21:00 11/12/16 20:59 10/16/16 08:58 1 TAB Calcium/Vitamin D (Caltrate Plus Tab) 1 tab DAILY PO 10/14/16 09:00 11/13/16 08:59 10/16/16 08:58 1 TAB Polyethylene (Miralax Powder Packet) 17 gm DAILY PO 10/14/16 09:00 11/13/16 08:59 10/16/16 08:58 17 GM Miscellaneous (Remove Lidoderm Patch) 1 ea DAILY@21 N/A 10/13/16 21:00 11/12/16 20:59 10/15/16 19:54 1 EA Oxycodone HCl (Roxicodone Immediate Rel Tab) 10 mg Q6 PRN PO 10/13/16 14:30 10/14/16 18:17 DC 10/14/16 11:52 10 MG Morphine Sulfate (MoRPHine SULFATE INJ) 4 mg Q4H PRN IV 10/13/16 14:30 10/27/16 14:29 10/13/16 23:55 4 MG Metoprolol Tartrate 5 mg 5 mg Q4 PRN IV 10/13/16 14:30 11/12/16 14:29 10/13/16 21:10 5 MG Heparin Sodium/ Dextrose 500 ml @ 26 mls/hr [id number] PRN IV 10/13/16 16:45 10/15/16 15:06 DC 10/15/16 09:45 26 MLS/HR Heparin Sodium (Porcine) 2000 unit/Syringe 2 ml @ 10 mls/min NOW STAT IV 10/14/16 00:50 10/14/16 00:51 DC 10/14/16 01:00 10 MLS/MIN Heparin Sodium (Porcine)/Syringe (Heparin Iv Bolus/Syringe) 2 ml @ 10 mls/min TODAY@0915 ONCE IV 10/14/16 09:15 10/14/16 09:16 DC 10/14/16 10:04 10 MLS/MIN Sodium Chloride ([place] Nasal [place]) 2 sprays NOW ONCE NA 10/14/16 16:45 10/14/16 16:50 DC 10/14/16 18:15 2 SPRAYS Oxycodone HCl (Roxicodone Immediate Rel Tab) 10 mg Q4 PRN PO 10/14/16 20:00 10/28/16 19:59 10/16/16 06:16 10 MG Pantoprazole Sodium (Protonix Tab) 40 mg QAM PO 10/15/16 09:00 11/14/16 08:59 10/16/16 08:59 40 MG Pantoprazole Sodium (Protonix Tab) 40 mg 1816 ONCE PO 10/14/16 18:16 10/14/16 18:29 DC 10/14/16 21:05 40 MG Enoxaparin Sodium (Lovenox Inj) 60 mg Q12H SQ 10/15/16 19:00 11/14/16 18:59 10/16/16 06:17 60 MG Subjective She has pleuritic chest pain on the right. Afebrile. Her back is also bothering her. This is been present since the time of surgery.. Review of Systems: Constitutional: Negative for weight loss, night sweats, or fever Eyes: Negative for event change of vision ENT: Negative for epistaxis, nasal discharge, sore throat, or deafness Cardiovascular: Positive for pleuritic chest pain, palpitations, dizziness, diaphoresis Respiratory: Negative for new shortness of breath,hemoptysis, or purulent cough Gastrointestinal: Negative for diarrhea, hematemesis, melena, nausea, vomiting , or dyspepsia Integumentary (skin): Negative for rash or jaundice discoloration Genitourinary: Negative for urinary frequency, hematuria, or dysuria Neurological: Negative for weakness, seizure activity, headache, or dizziness Lymphatic/Hematologic: Negative for petechiae, bleeding or new adenopathy Musculoskeletal: Negative for new joint or back pain Allergic/Immunologic: Negative for unusual rash or pruritis. Vital Signs Vital Signs Past 12 Hours Date Time Temp Pulse Resp B/P Pulse Ox O2 Delivery O2 Flow Rate FiO2 10/16/16 07:18 36.9 121 20 125/72 92 Room Air 10/16/16 04:00 36.7 100 20 137/79 93 Room Air 10/16/16 04:00 Room Air 10/16/16 00:00 36.8 112 20 134/77 93 Room Air 10/15/16 23:59 Room Air Physical Exam Constitutional: vitals are stable. Eyes: Eyes are MEAGHAN EOMI without conjuctival erythema or icterus. ENT: External examination was negative for masses. Neck: Negative for masses or palpable thyromegaly Respiratory: Lung sounds were generally clear bilaterally Cardiovascular: Heart was RRR without significant murmur, gallops aoe rubs Gastrointestinal: No palpable hepatic or splenomegaly. The abdomen was soft with normal bowel sounds. Lymphatic system: there was no palpable peripheral lymphadenopathy Musculoskeletal System: The musculoskeletal system seemed concordant with age. Skin: The skin was negative for jaundice. Neurologic exam: The exam was negative for any focal findings. Deep tendon reflexes were equal and symmetrical. Psychiatric exam: Was essentially negative with normal mood and effect. Breast exam: Not done Extremities: Negative for edema erythema Constitutional: Level of Distress: mild distress (due to pain), chronically ill Psychiatric: Mental Status: active & alert Orientation: oriented except where noted Eyes: EOM: EOMI ENMT: pharynx normal Neck: supple Lungs: Respiratory Effort: no dyspnea Auscuitation: CTA except as noted Cardiovascular: Heart Auscultation: RRR, no murmurs Abdomen: Inspection & Palpation: soft, non-distended, pertinent finding (diffusely tender to palpation over all abdominal quadrants) Extremities: no cyanosis, no edema Neurologic: Cranial Nerves: grossly intact Laboratory Last 24 Hours Test 10/16/16 06:55 White Blood Count 9.26 K/uL Red Blood Count 3.98 M/uL Hemoglobin 11.2 g/dL Hematocrit 33.3 % Mean Corpuscular Volume 83.7 fL Mean Corpuscular Hemoglobin 28.1 pg Mean Corpuscular Hemoglobin Concent 33.6 g/dl RDW Standard Deviation 49.0 fL RDW Coefficient of Variation 15.8 % Platelet Count 256 K/uL Mean Platelet Volume 8.8 fL Sodium Level 132 mmol/L Potassium Level 4.8 mmol/L Chloride Level 95 mmol/L Carbon Dioxide Level 28 mmol/L Anion Gap 9.0 mmol/L Blood Urea Nitrogen 11 mg/dl Creatinine 0.59 mg/dl Est Creatinine Clear Calc Drug Dose 75.3 ml/min Estimated GFR () 104.6 Estimated GFR (Non- 90.3 BUN/Creatinine Ratio 18.6 Random Glucose 107 mg/dl Calcium Level 8.9 mg/dl Assessment & Plan Bilateral DVT. Review the echocardiogram shows new moderate to severe pulmonary hypertension. It is a very difficult decision. A umbrella or IVC filter would be helpful in delaying further anticoagulation until she were further away from the surgery for an epidural hematoma the cause of which is unclear. However her hemodynamic status seems so tenuous that I don't believe it she's going to escape systemic anticoagulation. Conversations with [facility] neurosurgery have been relayed as being fairly comfortable or is comfortable they can be with anticoagulation at this time. I did open up a conversation today with the patient concerning an IVC filter but on rethinking this situation particular he with the echo report I believe that we should forego an umbrella and Lopez with systemic anticoagulation as is ongoing. This was reviewed with the hospitalist Dr. Cantu.
--- NOTE | 2016-10-16 11:19 | Surgery Consultation ---
Consultation Date of Service Oct 16, 2016. (Peggy Wood, MORENA) Chief Complaint BLE DVT, BL PE, R heart strain, recent epidural hematoma with surgical drainage , decreased mobility, possible IVC filter (Peggy Wood, MORENA) History of Present Illness The patient is a 76 year old female with recent dx of ovarian ca, recently with spontaneous epidural hematoma requiring surgical drainage, admitted d/t BLE DVT and PE with R heart strain, seen today for discussion regarding possible need for IVC filter. Pt states no hx of DVT in past, but has been at [facility] since her epidural hematoma drainage d/t significantly decreased mobility and numbness of her BLE since the procedure. Echo on admission indicates R heart strain with tricuspid regurg and increased R ventricular pressure which was not present on previous echo in 09/28. Pt currently c/o of fatigue and back pain from her recent procedure. Has been participating in PT, but difficult d/t pain and numbness of lower extremities. Denies BARRIENTOS, fever, chills, chest pain or SOB currently, abd pain, N/V, claudication, rest pain, other complaints. (Peggy Wood, LUCASC) Vitals Vital Signs Past 12 Hours Date Time Temp Pulse Resp B/P Pulse Ox O2 Delivery O2 Flow Rate FiO2 10/16/16 07:18 36.9 121 20 125/72 92 Room Air 10/16/16 04:00 36.7 100 20 137/79 93 Room Air 10/16/16 04:00 Room Air 10/16/16 00:00 36.8 112 20 134/77 93 Room Air 10/15/16 23:59 Room Air (Peggy Wood, LUCASC) Allergies Coded Allergies: Oxaprozin (Verified Allergy, Intermediate, FEET SWELLING, SKIN PEELING, ) Piperacillin (Verified Allergy, Intermediate, hives, 10/13/16) Tazobactam (Verified Allergy, Intermediate, hives, 10/13/16) Home Medications Scheduled Bisacodyl (Dulcolax), 1 SUPP [place] DAILY Calcium Carbonate-Vitamin D (Oscal 500/200 D-3), 1 TAB PO DAILY Docusate Sodium (Colace), 1 CAP PO BID Lidocaine (Lidocaine), 1 PATCH TOP DAILY Metoprolol Tartrate (Lopressor) (Lopressor), 50 MG PO BID Oseltamivir (Tamiflu), 75 MG PO DAILY Polyethylene Glycol 3350 (Miralax), 17 GM PO DAILY Sennosides-Docusate Sodium (Senna-S), 1 TAB PO BID Scheduled PRN Cyclobenzaprine Hcl (Flexeril), 10 MG PO Q8 PRN for Muscle Spasms Hydrocodone/Acetaminophen ([place] 10/325 Tab), 1 TAB PO Q4 PRN for Pain Oxycodone Immediate Rel Tab (Roxicodone Ir), 5 MG PO Q2H PRN for Breakthrough Pain Problem List Medical Problems: (1) Gastritis (2) Knee pain (3) Ovarian cancer (4) Pulmonary embolism (Peggy Wood PA-C) Surgical / Medical History Hx Cardiac Surgery: Yes ( ) Hx Abdominal Surgery: No Hx Cancer Surgery: No Hx Thoracic Surgery: No Hx Orthopedic: Yes (artificial knee and lami sep 2016) Hx Urinary Tract Surgery: No HX Other Surgery: No Past Medical/Surgical History: Hypertension (Peggy Wood PA-C) Family History Heart disease (Peggy Wood PA-C) Heart disease (Antione Villanueva M.D.) Social History Smoking Status: Never Smoker Hx Tobacco Use In Past Year?: No Hx Alcohol Use - Type & Amnt: No Hx Substance Use -Type & Amnt: No (Peggy Wood, LUCASC) Review of Systems Constitutional: + malaise, No chills, No fever Skin: No change in color Eyes: No visual changes ENMT: No sore throat Respiratory: + LOPES, No cough, No hemoptysis, No short of breath Cardiovascular: No chest pain, No edema, No intermittent claudication, No palpitations, No syncope Gastrointestinal: No abdominal pain, No nausea, No vomiting Musculoskeletal: + back pain Neurologic: + numbness, + paresthesia, + tingling, + weakness, No dizziness ( Peggy Wood, LUCASC) Physical Exam Constitutional: General Apperance: heathly-appearing, well-nourished, well-developed Level of Distress: mild distress (d/t pain) Psychiatric: Mental Status: active & alert, normal mood, normal affect Orientation: oriented except where noted, to time, to place, to person Memory: recent memory normal, remote memory normal Head: normocephalic, atraumatic Eyes: EOM: EOMI ENMT: normal ENT inspection, hearing grossly normal Neck: supple, trachea midline Lungs: Respiratory effort: no dyspnea Auscultation: no rales/crackles, no rhonchi, decreased breath sounds Cardiovascular: Apical Impulse: not displaced Heart Auscultation: no rubs, no gallops, tachycardia Peripheral Pulses: Pulses: full and equal, in all extremities except if noted Bruits: none appreciated Carotid Pulse: normal on the left, normal on the right Brachial Pulses: normal on the left, normal on the right Radial Pulse: normal on the left, normal on the right Femoral Pulse: normal on the left, normal on the right Posterior Tibialis Pulse: normal on the left, normal on the right Dorsalis Pedis Pulse: normal on the left, normal on the right Abdomen: Bowel Sounds: normal Inspection & Palpation: soft, non-distended Musculoskeletal: normal strength (5/5 throughout), normal tone Extremities: Upper Right: no cyanosis, no edema, no varicosities Upper Left: no cyanosis, no edema, no varicosities Lower Right: no cyanosis, no varicosities, edema (trace) Lower Left: no cyanosis, no varicosities, no palpable cord, edema (trace) Neurologic: Cranial Nerves: grossly intact (Peggy Wood, PA-C) Assessment and Plan ASSESSMENT and PLAN: BLE DVT PE with R heart strain Decreased mobility Pt discussed with Dr Villanueva. In light of her multiple problems( ovarian ca, recent epidural bleed, decreased mobility), she is high risk for further DVT /PE. Recommend IVC filter insertion d/t R heart strain on echo with evaluation for possible removal in 3-4 months. Appropriateness of concomitant anticoagulation to be worked out by medicine/oncology/ spine surgeon. Discussed with pt, she wishes her medical team to discuss her current problems with her oncologist in [place] before agreeing to filter insertion. Hospitalist advised. Will tentatively schedule in OR tomorrow and discuss with pt further prior to procedure. (Peggy Wood, PA-C) Agree with exam and treatment plan of the Vascular PA. Recommend IVC filter due to bilateral PE with right heart strain, possible hypercoagulable state, and decreased ambulation. Filter can be removed up to one year if medical condition changes during that time. Thank you very much for letting me participate in the care of this patient. (Antione Villanueva M.D.)
--- NOTE | 2016-10-16 13:25 | Progress Note ---
Subjective Date of Service: Oct 16, 2016. Subjective Pt evaluation today including: conversation w/ patient, chart review, lab review Voiding: franco catheter in place (patent, draining clear, yellow urine ) 76 yo female with urinary retention. Pt sleeping this AM, and not disturbed. Franco catheter in place draining clear, yellow urine. Problem List Medical Problems: (1) Back pain Status: Acute (2) Bilateral pulmonary embolism Status: Acute (3) Epidural hematoma Status: Acute Review of Systems Pt sleeping and not disturbed. Objective Vital Signs Date Time Temp Pulse Resp B/P Pulse Ox O2 Delivery O2 Flow Rate FiO2 10/16/16 10:56 36.7 110 20 131/84 95 Room Air 10/16/16 08:00 92 Room Air 10/16/16 07:18 36.9 121 20 125/72 92 Room Air 10/16/16 04:00 36.7 100 20 137/79 93 Room Air 10/16/16 04:00 Room Air 10/16/16 00:00 36.8 112 20 134/77 93 Room Air 10/15/16 23:59 Room Air 10/15/16 20:00 Room Air 10/15/16 19:53 118 20 120/73 96 10/15/16 16:00 Room Air 10/15/16 15:50 37.2 97 18 120/70 92 Room Air Physical Exam General Appearance: no apparent distress Neck: no JVD Respiratory/Chest: no respiratory distress, no accessory muscle use Cardiovascular: no JVD Extremities: normal inspection Neurologic/Psychiatric: + pertinent finding (Pt sleeping. ) Skin: normal color Laboratory Results Last 24 Hours Test 10/16/16 06:55 White Blood Count 9.26 K/uL Red Blood Count 3.98 M/uL Hemoglobin 11.2 g/dL Hematocrit 33.3 % Mean Corpuscular Volume 83.7 fL Mean Corpuscular Hemoglobin 28.1 pg Mean Corpuscular Hemoglobin Concent 33.6 g/dl RDW Standard Deviation 49.0 fL RDW Coefficient of Variation 15.8 % Platelet Count 256 K/uL Mean Platelet Volume 8.8 fL Sodium Level 132 mmol/L Potassium Level 4.8 mmol/L Chloride Level 95 mmol/L Carbon Dioxide Level 28 mmol/L Anion Gap 9.0 mmol/L Blood Urea Nitrogen 11 mg/dl Creatinine 0.59 mg/dl Est Creatinine Clear Calc Drug Dose 75.3 ml/min Estimated GFR () 104.6 Estimated GFR (Non- 90.3 BUN/Creatinine Ratio 18.6 Random Glucose 107 mg/dl Calcium Level 8.9 mg/dl Assessment and Plan A/P: Urinary retention AFVSS. Recommend leaving franco catheter in place for 7 days. Will attempt a trial of void as outpatient at that time. May need UDS in the future for further evaluation if retention persists. No further management at this time. Recall PRN issues. Will arrange for outpatient f/u. Thanks for allowing us to participate in this pt's care.
--- NOTE | 2016-10-16 14:31 | Hospitalist Progress Note ---
Hospitalist Progress Note Date of Service Oct 16, 2016. Subjective Pt evaluation today including: conversation w/ patient, conversation w/ family , physical exam, conversation w/ store sales consultant (Outside Oncologist Dr. Guerrero at [facility] in [facility]) Voiding: franco catheter in place Pt resting but was OOB to chair earlier today, no new numbness or pain. Still tachy, discussion had of placement of IVC filter due to severe right heart strain. Pt agreeable if her Oncologist in [facility] agreeable Constitutional: No fever Cardiovascular: No chest pain All Other Systems: Reviewed and Negative Objective Vital Signs Date Time Temp Pulse Resp B/P Pulse Ox O2 Delivery O2 Flow Rate FiO2 10/16/16 10:56 36.7 110 20 131/84 95 Room Air 10/16/16 08:00 92 Room Air 10/16/16 07:18 36.9 121 20 125/72 92 Room Air 10/16/16 04:00 36.7 100 20 137/79 93 Room Air 10/16/16 04:00 Room Air 10/16/16 00:00 36.8 112 20 134/77 93 Room Air 10/15/16 23:59 Room Air 10/15/16 20:00 Room Air 10/15/16 19:53 118 20 120/73 96 10/15/16 16:00 Room Air 10/15/16 15:50 37.2 97 18 120/70 92 Room Air Physical Exam General Appearance: WD/WN, no apparent distress Eyes: normal inspection, sclerae normal ENT: hearing grossly normal Respiratory/Chest: normal breath sounds, no respiratory distress, no accessory muscle use Cardiovascular: no gallop, no murmur, + tachycardia (with regular rhythm) Abdomen: normal bowel sounds, soft, + tenderness (diffuse without guarding or rebound, mild), + pertinent finding (Franco in place) Extremities: non-tender, normal inspection, no pedal edema, no calf tenderness Neurologic/Psychiatric: alert, oriented x 3, + depressed affect Skin: normal color, warm/dry, no rash Laboratory Results Last 24 Hours Test 10/16/16 06:55 White Blood Count 9.26 K/uL Red Blood Count 3.98 M/uL Hemoglobin 11.2 g/dL Hematocrit 33.3 % Mean Corpuscular Volume 83.7 fL Mean Corpuscular Hemoglobin 28.1 pg Mean Corpuscular Hemoglobin Concent 33.6 g/dl RDW Standard Deviation 49.0 fL RDW Coefficient of Variation 15.8 % Platelet Count 256 K/uL Mean Platelet Volume 8.8 fL Sodium Level 132 mmol/L Potassium Level 4.8 mmol/L Chloride Level 95 mmol/L Carbon Dioxide Level 28 mmol/L Anion Gap 9.0 mmol/L Blood Urea Nitrogen 11 mg/dl Creatinine 0.59 mg/dl Est Creatinine Clear Calc Drug Dose 75.3 ml/min Estimated GFR () 104.6 Estimated GFR (Non- 90.3 BUN/Creatinine Ratio 18.6 Random Glucose 107 mg/dl Calcium Level 8.9 mg/dl Assessment and Plan This pt is a 76-year-old female here with bilateral pulmonary emboli, bilateral LE DVTs, recent spinal surgery for spontaneous epidural hematoma, and ovarian cancer with abdominal carcinomatosis. Pulmonary embolism Bilateral, Bilateral DVTs : -was on heparin drip and case d/w Neurosurgeon at [facility] [place] by Dr. 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 - there was discussion about needing an A-port, we can coordinate this with hematology/oncology and perhaps temporary cease the Lovenox when she is stable for surgery --> Consult Gen Surgery appreciated, probably will be more like next week -continue Lovenox 1mg/kg q12 now -Now Oncology and Vascular Surgery recommending placement of IVC filter given significant right heart strain and large clot burden in legs to prevent further PEs--> pt in agreement if her primary Oncology in [facility]--> awaiting call back from him to discuss Paroxysmal atrial fibrillation, Sinus tachycardia secondary to large PEs, Pulmonary hypertension-she is in sinus rhythm by EKG an on tele. Tachycardia slightly improved today. ECHO with evidence of right heart strain from PEs: ECHO: 1. Normal left ventricular size with hyperdynamic systolic function. EF 70-75%. No regional wall motion abnormalities visualized. Mild concentric left ventricular hypertrophy. * 2. The right ventricle is normal in size and function. * 3. There is moderate to severe tricuspid regurgitation. * 4. Moderate to severe pulmonary hypertension suggested; Estimated RVSP 59 mmHg. * 5. Limited 2-D echo with spectral and color Doppler. * 6. Compared to prior study on 09/26/2016, estimated RVSP is now moderately to severely elevated and there is now moderate to severe tricuspid regurgitation. - We will maintain her metoprolol with p.r.n. backup. -continue telemetry constipation-improved -we will maintain all of her bowel regimen from home -MiraLax as needed Indwelling Franco/Bladder dysfunction since back surgery/Epidural hematoma -consult Urology appreciated-plan is to maintain Franco and see them in office for further testing if fails voiding trial in 7 days -f/u as outpatient Ovarian CA-Oncology following -plans to start chemo after port placed Epidural hematoma, s/p decompression surgery on 09/29/16, back pain, residual neuro deficits in feet with numbness and weakness- -PT/OT to resume when able to -watch for rebleeding in epidural space given anticoagulation and recent surgery The patient is a full code.
[2016-10-16] MEDS: CYCLOBENZAPRINE HCL 10 MG TAB PO PRN (17:18)
[2016-10-17] VITALS (8 sets, daily range): BP systolic 113–142; BP diastolic 74–88; PULSE 90–107; TEMP 36.6–37.3; O2SAT 92–98
[2016-10-17 07:38] LABS: BUN/CREATININE RATIO 22.9 (10-20); CALCIUM 9.4 mg/dl (8.5-10.1); CREATININE 0.58 mg/dl (0.60-1.20); POTASSIUM 4.6 mmol/L (3.5-5.1)
[2016-10-17 07:41] LABS: HEMATOCRIT 34.2 % (37-47); MEAN CELL VOLUME 83.6 fL (80-100); MEAN CORPUSCULAR HEMOGLOBIN 28.4 pg (25-34); MEAN CORPUSCULAR HGB CONC 33.9 g/dl (32-36); MEAN PLATELET VOLUME 8.9 fL (7.4-10.4); PLATELET COUNT 282 K/uL (130-400); RED BLOOD COUNT 4.09 M/uL (4.2-5.4); WHITE BLOOD COUNT 8.17 K/uL (4.8-10.8)
[2016-10-17] MEDS: ENOXAPARIN 60 MG/0.6 ML SYR SQ SCH ×2 (08:32→20:56)
[2016-10-17] MEDS: POLYETHYLENE (MIRALAX) 17 GM PACK PO SCH (09:00)
[2016-10-17] MEDS: CALCIUM 600MG + VIT D 400 IU TAB PO SCH (09:00)
[2016-10-17] MEDS: DOCUSATE SODIUM 100 MG CAP PO SCH ×2 (09:00→20:55)
[2016-10-17] MEDS: BISACODYL 10 MG SUPP PR SCH (09:00)
[2016-10-17] MEDS: LIDODERM (LIDOCAINE) PATCH 5% TD SCH (09:00)
[2016-10-17] MEDS: DOCUSATE SODIUM/SENNA 50/8.6MG TAB PO SCH ×2 (09:00→20:55)
[2016-10-17] MEDS: METOPROLOL TARTRATE 50 MG TAB PO SCH ×2 (09:00→20:55)
[2016-10-17] MEDS: PANTOprazole SOD 40 MG TAB PO SCH (09:00)
[2016-10-17] MEDS: OSELTAMIVIR PHOSPHATE 75 MG CAP PO SCH (09:00)
--- NOTE | 2016-10-17 10:02 | Hematology/Oncology Prog Note ---
Hematology/Onc Progress Note Date of Service Oct 17, 2016. 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 Medications Medications Administered Medications (Trade) Dose Ordered Sig/Bianca Route Start Time Stop Time Status Last Admin Dose Admin Sodium Chloride (Nss 1000ml) 1,000 ml @ 999 mls/hr Q1H1M STAT IV 10/13/16 11:08 10/13/16 12:08 DC 10/13/16 11:22 999 MLS/HR Acetaminophen/ Hydrocodone Bitart ([place] 5/325 Tab) 2 tab ONE STAT PO 10/13/16 11:08 10/13/16 11:10 DC 10/13/16 11:24 2 TAB Bisacodyl (Dulcolax Supp) 10 mg DAILY NC 10/14/16 09:00 11/13/16 08:59 10/16/16 08:58 10 MG Cyclobenzaprine HCl (Flexeril Tab) 10 mg Q8 PRN PO 10/13/16 14:15 11/12/16 14:14 10/16/16 17:18 10 MG Docusate Sodium (coLACE CAP) 100 mg BID PO 10/13/16 21:00 11/12/16 20:59 10/16/16 20:53 100 MG Lidocaine (Lidoderm Patch 5%) 1 patch DAILY TD 10/14/16 09:00 11/13/16 08:59 10/16/16 09:00 1 PATCH Metoprolol Tartrate (Lopressor Tab) 50 mg BID PO 10/13/16 21:00 11/12/16 20:59 10/16/16 20:54 50 MG Oseltamivir Phosphate (Tamiflu Cap) 75 mg DAILY PO 10/14/16 09:00 10/19/16 08:59 10/16/16 08:58 75 MG Senna/Docusate Sodium (Senokot S Tab) 1 tab BID PO 10/13/16 21:00 11/12/16 20:59 10/16/16 20:53 1 TAB Calcium/Vitamin D (Caltrate Plus Tab) 1 tab DAILY PO 10/14/16 09:00 11/13/16 08:59 10/16/16 08:58 1 TAB Polyethylene (Miralax Powder Packet) 17 gm DAILY PO 10/14/16 09:00 11/13/16 08:59 10/16/16 08:58 17 GM Miscellaneous (Remove Lidoderm Patch) 1 ea DAILY@21 N/A 10/13/16 21:00 11/12/16 20:59 10/16/16 20:54 1 EA Oxycodone HCl (Roxicodone Immediate Rel Tab) 10 mg Q6 PRN PO 10/13/16 14:30 10/14/16 18:17 DC 10/14/16 11:52 10 MG Morphine Sulfate (MoRPHine SULFATE INJ) 4 mg Q4H PRN IV 10/13/16 14:30 10/27/16 14:29 10/13/16 23:55 4 MG Morphine Sulfate (MoRPHine SULFATE INJ) 2 mg Q4H PRN IV 10/13/16 14:30 10/27/16 14:29 10/17/16 08:32 2 MG Metoprolol Tartrate 5 mg 5 mg Q4 PRN IV 10/13/16 14:30 11/12/16 14:29 10/13/16 21:10 5 MG Heparin Sodium/ Dextrose 500 ml @ 26 mls/hr [id number] PRN IV 10/13/16 16:45 10/15/16 15:06 DC 10/15/16 09:45 26 MLS/HR Heparin Sodium (Porcine) 2000 unit/Syringe 2 ml @ 10 mls/min NOW STAT IV 10/14/16 00:50 10/14/16 00:51 DC 10/14/16 01:00 10 MLS/MIN Heparin Sodium (Porcine)/Syringe (Heparin Iv Bolus/Syringe) 2 ml @ 10 mls/min TODAY@0915 ONCE IV 10/14/16 09:15 10/14/16 09:16 DC 10/14/16 10:04 10 MLS/MIN Sodium Chloride ([place] Nasal [place]) 2 sprays NOW ONCE NA 10/14/16 16:45 10/14/16 16:50 DC 10/14/16 18:15 2 SPRAYS Oxycodone HCl (Roxicodone Immediate Rel Tab) 10 mg Q4 PRN PO 10/14/16 20:00 10/28/16 19:59 10/16/16 21:46 10 MG Pantoprazole Sodium (Protonix Tab) 40 mg QAM PO 10/15/16 09:00 11/14/16 08:59 10/16/16 08:59 40 MG Pantoprazole Sodium (Protonix Tab) 40 mg 1816 ONCE PO 10/14/16 18:16 10/14/16 18:29 DC 10/14/16 21:05 40 MG Enoxaparin Sodium (Lovenox Inj) 60 mg Q12H SQ 10/15/16 19:00 11/14/16 18:59 10/17/16 08:32 60 MG Subjective She continues to have particularly right pleuritic chest pain Review of Systems: Constitutional: Negative for night sweats, or fever Eyes: Negative for event change of vision ENT: Negative for epistaxis, nasal discharge, sore throat, or deafness Cardiovascular: Right pleuritic type chest pain as before Respiratory: Negative for new shortness of breath,hemoptysis, or purulent cough Gastrointestinal: Negative for diarrhea, hematemesis, melena, nausea, vomiting , or dyspepsia Integumentary (skin): Negative for rash or jaundice discoloration Genitourinary: Negative for urinary frequency, hematuria, or dysuria Neurological: Negative for weakness, seizure activity, headache, or dizziness Lymphatic/Hematologic: Negative for petechiae, bleeding or new adenopathy Musculoskeletal: Negative for new joint pain. She has had back pain as before Allergic/Immunologic: Negative for unusual rash or pruritis. Vital Signs Vital Signs Past 12 Hours Date Time Temp Pulse Resp B/P Pulse Ox O2 Delivery O2 Flow Rate FiO2 10/17/16 06:58 37.2 95 16 125/74 94 Room Air 10/17/16 04:00 Room Air 10/17/16 03:41 36.8 97 18 125/79 92 Room Air 10/16/16 23:59 Room Air 10/16/16 23:36 36.6 68 20 142/78 95 Room Air Physical Exam Constitutional: vitals are stable. Eyes: Eyes are MEAGHAN EOMI without conjuctival erythema or icterus. ENT: External examination was negative for masses. Neck: Negative for masses or palpable thyromegaly Respiratory: Lung sounds were generally clear bilaterally Cardiovascular: Heart was RRR without significant murmur, gallops aoe rubs Gastrointestinal: No palpable hepatic or splenomegaly. The abdomen was soft with normal bowel sounds. Lymphatic system: there was no palpable peripheral lymphadenopathy Musculoskeletal System: The musculoskeletal system seemed concordant with age. Skin: The skin was negative for jaundice. Neurologic exam: The exam was negative for any focal findings. Deep tendon reflexes were equal and symmetrical. Psychiatric exam: Was essentially negative with normal mood and effect. Breast exam: Not done Extremities: Negative for edema erythema Constitutional: Level of Distress: mild distress (due to pain), chronically ill Psychiatric: Mental Status: active & alert Orientation: oriented except where noted Eyes: EOM: EOMI ENMT: pharynx normal Neck: supple Lungs: Respiratory Effort: no dyspnea Auscuitation: CTA except as noted Cardiovascular: Heart Auscultation: RRR, no murmurs Abdomen: Inspection & Palpation: soft, non-distended, pertinent finding (diffusely tender to palpation over all abdominal quadrants) Extremities: no cyanosis, no edema Neurologic: Cranial Nerves: grossly intact Laboratory Last 24 Hours Test 10/17/16 06:49 White Blood Count 8.17 K/uL Red Blood Count 4.09 M/uL Hemoglobin 11.6 g/dL Hematocrit 34.2 % Mean Corpuscular Volume 83.6 fL Mean Corpuscular Hemoglobin 28.4 pg Mean Corpuscular Hemoglobin Concent 33.9 g/dl RDW Standard Deviation 49.3 fL RDW Coefficient of Variation 16.0 % Platelet Count 282 K/uL Mean Platelet Volume 8.9 fL Sodium Level 132 mmol/L Potassium Level 4.6 mmol/L Chloride Level 94 mmol/L Carbon Dioxide Level 28 mmol/L Anion Gap 10.0 mmol/L Blood Urea Nitrogen 13 mg/dl Creatinine 0.58 mg/dl Est Creatinine Clear Calc Drug Dose 76.6 ml/min Estimated GFR () 105.2 Estimated GFR (Non- 90.8 BUN/Creatinine Ratio 22.9 Random Glucose 98 mg/dl Calcium Level 9.4 mg/dl Assessment & Plan As treatment for the significant pulmonary emboli he also - an IVC filter is also contemplated along systemic anticoagulation. This certainly seems reasonable with the burden of clot that is seen on her chest CTA. I did speak with her molecular modeler oncologist yesterday informing him of the ongoing issue with her pulmonary emboli. He actually had called to ask that our clinic assume her oncologic care. With that then she will be given a follow-up appointment to our clinic within the next one to 2 weeks. The patient was informed of this and she understood.
--- NOTE | 2016-10-17 11:13 | Procedure Note ---
Pre-Mod Sedation Assessment General Date of Moderate Sedation: Oct 17, 2016. Vital Signs: Vital Signs Past 12 Hours Date Time Temp Pulse Resp B/P Pulse Ox O2 Delivery O2 Flow Rate FiO2 10/17/16 10:42 36.9 107 16 142/82 96 Room Air 10/17/16 10:37 36.9 107 16 142/82 96 Room Air 10/17/16 08:00 Room Air 10/17/16 06:58 37.2 95 16 125/74 94 Room Air 10/17/16 04:00 Room Air 10/17/16 03:41 36.8 97 18 125/79 92 Room Air 10/16/16 23:59 Room Air 10/16/16 23:36 36.6 68 20 142/78 95 Room Air Pre-Sedation Airway Assessment Oral Cavity: WNL Short Thick Neck: No Hx of Sleep Apnea: No Smoking Status: Never Smoker Mallampati Classification: Class I ASA Classification: Class II Notes The planned sedation has been discussed with the patient and consent obtained. I have identified the patient, determined the appropriateness of sedation and have assessed the patient immediately prior to the procedure. All medicine(s) and interventions are by my order.
--- NOTE | 2016-10-17 11:13 | Progress Note ---
Progress Note Patient for insertion of IVC filter. I have discussed the risks options and benefits of the procedure with the patient. The patient understands the risks options and benefits and agrees to the procedure. I have examined the patient, reviewed the History & Physical and in the interval since the performance of the History & Physical I have noted the following changes of clinical significance: No changes noted
[2016-10-17] MEDS ORDERED: FENTANYL CITRATE INJ 50 MCG/1 ML 2 ML VIAL ONE (11:59)
[2016-10-17] MEDS ORDERED: MIDAZOLAM HCL 1 MG/ML 2ML VIAL ONE (11:59)
[2016-10-17] MEDS ORDERED: CLINDAMYCIN 600 MG/54 ML D5W IV ONE ×2 (12:00→12:02)
[2016-10-17] MEDS ORDERED: METOPROLOL TARTRATE 25 MG TAB ONE (12:03)
[2016-10-17] MEDS ORDERED: MIDAZOLAM HCL 1 MG/ML 2ML VIAL IV ONE (12:26)
[2016-10-17] MEDS ORDERED: FENTANYL CITRATE INJ 50 MCG/1 ML 2 ML VIAL IV ONE (12:26)
[2016-10-17] MEDS ORDERED: LIDOCAINE HCL 1% 20 ML VIAL INJ ONE (12:29)
[2016-10-17] MEDS ORDERED: IODIXANOL (VISIPAQUE) 270 MG/ML 50ML IV ONE (12:43)
--- NOTE | 2016-10-17 12:43 | [facility] Post Operative Brief Note ---
Immediate Operative Summary Operative Date Oct 17, 2016. Pre-Operative Diagnosis Bilateral DVT, PE, Right Heart Strain Post-Operative Diagnosis same Procedure(s) Performed Insertion Of Inferior Vena Cava Filter, Right Femoral Approach, Ultrasound Needle Localization Of Right Femoral Vein, Fluoroscopy for Positioning Surgeon Dr. Villanueva Transitions Manager Surgeon(s) none Estimated Blood Loss 5 ml Findings filter upright in infrarenal IVC No cava clot seen Specimens none Anesthesia Local with sedation Complication(s) None Disposition
--- NOTE | 2016-10-17 12:43 | Procedure Note ---
Post-Moderate Sedation Plan General Date of Moderate Sedation Oct 17, 2016. Vital Signs: Vital Signs Past 12 Hours Date Time Temp Pulse Resp B/P Pulse Ox O2 Delivery O2 Flow Rate FiO2 10/17/16 12:17 36.8 111 18 120/77 94 Room Air 10/17/16 10:42 36.9 107 16 142/82 96 Room Air 10/17/16 10:37 36.9 107 16 142/82 96 Room Air 10/17/16 08:00 Room Air 10/17/16 06:58 37.2 95 16 125/74 94 Room Air 10/17/16 04:00 Room Air 10/17/16 03:41 36.8 97 18 125/79 92 Room Air Review - Discharge Plan Post Moderate Sedation Plan: On clinical assessment, the patient appears to have tolerated the conscious sedation without complications. Patient is recovering as anticipated. Patient will continue to be monitored by nursing and may be discharged when conscious sedation discharge criteria are met.
--- NOTE | 2016-10-17 13:11 | DIAGNOSTIC IMAGING REPORT ---
DATE OF PROCEDURE: 10/17/2016 PREOPERATIVE DIAGNOSES: Acute deep venous thrombosis both bilateral lower extremities with pulmonary embolism and right heart strain. POSTOPERATIVE DIAGNOSES: Same. PROCEDURE: Insertion of inferior vena cava filter femoral approach. SURGEON: Dr. Villanueva. ANESTHETIC: Local with sedation.(12:26 to 12:43) PROCEDURE INDICATIONS: The patient is a 76-year-old female with ovarian cancer, recently with spontaneous epidural hematoma which required surgical drainage. She now developed bilateral lower extremity DVT with pulmonary embolism and right heart strain. We recommended a filter insertion due to the PE burden and the right heart strain. She understands the risks, options and benefits and is agreeable to the procedure. The patient was taken to the angiogram suite and placed in the supine position. The right groin was then prepped and draped in the sterile manner. A percutaneous puncture was then made of the right common femoral vein. A wire was passed centrally. This was done under fluoroscopic imaging. The filter sheath was then inserted. Once in position, the venacavogram was performed. The inferior vena cava had no clot seen. It was of good caliber. The renal veins were identified. The filter was then inserted and deployed below the renal veins in an upright position. Pressure was applied to the puncture site once the sheath was removed. Adequate hemostasis was noted. Sterile dressings were then applied to the wound. The patient left the angio suite in good condition and tolerated the procedure well. DARIUS
[2016-10-17] MEDS: OXYCODONE HCL IR 5 MG TAB (IMMEDIATE RELEASE) PO PRN (20:41)
--- NOTE | 2016-10-17 21:15 | Hospitalist Progress Note ---
Hospitalist Progress Note Date of Service Oct 17, 2016. Subjective Pt evaluation today including: conversation w/ patient, conversation w/ family , physical exam, chart review, lab review, conversation w/ [facility] consultant (Vascular) , review of inpatient medication list Voiding: franco catheter in place Pt going for IVC filter today. No new issues Respiratory: No shortness of breath Cardiovascular: No chest pain Musculoskeletal: + problem reported (back pain) All Other Systems: Reviewed and Negative Objective Vital Signs Date Time Temp Pulse Resp B/P Pulse Ox O2 Delivery O2 Flow Rate FiO2 10/17/16 19:28 37.3 100 20 125/82 93 Room Air 10/17/16 16:00 95 Nasal Cannula 2.0 10/17/16 16:00 36.6 90 20 128/88 95 Nasal Cannula 2.0 10/17/16 14:03 94 Room Air 10/17/16 13:42 36.7 90 17 113/86 98 Nasal Cannula 2.0 10/17/16 12:17 36.8 111 18 120/77 94 Room Air 10/17/16 10:42 36.9 107 16 142/82 96 Room Air 10/17/16 10:37 36.9 107 16 142/82 96 Room Air 10/17/16 08:00 Room Air 10/17/16 06:58 37.2 95 16 125/74 94 Room Air 10/17/16 04:00 Room Air 10/17/16 03:41 36.8 97 18 125/79 92 Room Air 10/16/16 23:59 Room Air 10/16/16 23:36 36.6 68 20 142/78 95 Room Air Physical Exam General Appearance: WD/WN, no apparent distress Eyes: normal inspection, sclerae normal Neck: trachea midline Respiratory/Chest: lungs clear, normal breath sounds, no respiratory distress, no accessory muscle use Cardiovascular: regular rate, rhythm, no edema, no gallop, no murmur Abdomen: normal bowel sounds, non tender, soft, no organomegaly Extremities: non-tender, normal inspection, no calf tenderness Neurologic/Psychiatric: alert, + depressed affect Skin: normal color, warm/dry Laboratory Results Last 24 Hours Test 10/17/16 06:49 White Blood Count 8.17 K/uL Red Blood Count 4.09 M/uL Hemoglobin 11.6 g/dL Hematocrit 34.2 % Mean Corpuscular Volume 83.6 fL Mean Corpuscular Hemoglobin 28.4 pg Mean Corpuscular Hemoglobin Concent 33.9 g/dl RDW Standard Deviation 49.3 fL RDW Coefficient of Variation 16.0 % Platelet Count 282 K/uL Mean Platelet Volume 8.9 fL Sodium Level 132 mmol/L Potassium Level 4.6 mmol/L Chloride Level 94 mmol/L Carbon Dioxide Level 28 mmol/L Anion Gap 10.0 mmol/L Blood Urea Nitrogen 13 mg/dl Creatinine 0.58 mg/dl Est Creatinine Clear Calc Drug Dose 76.6 ml/min Estimated GFR () 105.2 Estimated GFR (Non- 90.8 BUN/Creatinine Ratio 22.9 Random Glucose 98 mg/dl Calcium Level 9.4 mg/dl Assessment and Plan This pt is a 76-year-old female here with bilateral pulmonary emboli, bilateral LE DVTs, recent spinal surgery for spontaneous epidural hematoma, and ovarian cancer with abdominal carcinomatosis. Pulmonary embolism Bilateral, Bilateral DVTs : -was on heparin drip and case d/w Neurosurgeon at [facility] by Dr. Casey who agreed to treat PE outweighs risk of bleeding from recent spine surgery -consult hematology/oncology appreciated-plans for Lovenox fpc in setting of malignancy with DVT/PE - there was discussion about needing an A-port, we can coordinate this with hematology/oncology and perhaps temporary cease the Lovenox when she is stable for surgery --> Consult Gen Surgery appreciated, probably will be more like next week -continue Lovenox 1mg/kg q12 now -Now Oncology and Vascular Surgery recommending placement of IVC filter given significant right heart strain and large clot burden in legs to prevent further PEs--> pt in agreement if her primary Oncology in [facility]--> he was in agreement--> IVC filter placed 10/17/15 Paroxysmal atrial fibrillation, Sinus tachycardia secondary to large PEs, Pulmonary hypertension-she is in sinus rhythm by EKG an on tele. Tachycardia slightly improved today. ECHO with evidence of right heart strain from PEs: ECHO: 1. Normal left ventricular size with hyperdynamic systolic function. EF 70-75%. No regional wall motion abnormalities visualized. Mild concentric left ventricular hypertrophy. * 2. The right ventricle is normal in size and function. * 3. There is moderate to severe tricuspid regurgitation. * 4. Moderate to severe pulmonary hypertension suggested; Estimated RVSP 59 mmHg. * 5. Limited 2-D echo with spectral and color Doppler. * 6. Compared to prior study on 09/26/2016, estimated RVSP is now moderately to severely elevated and there is now moderate to severe tricuspid regurgitation. - We will maintain her metoprolol with p.r.n. backup. -continue telemetry constipation-improved -we will maintain all of her bowel regimen from home -MiraLax as needed Indwelling Franco/Bladder dysfunction since back surgery/Epidural hematoma -consult Urology appreciated-plan is to maintain Franco and see them in office for further testing if fails voiding trial in 7 days -f/u as outpatient Ovarian CA-Oncology following -plans to start chemo after port placed Epidural hematoma, s/p decompression surgery on 09/29/16, back pain, residual neuro deficits in feet with numbness and weakness- -PT/OT to resume when able to -watch for rebleeding in epidural space given anticoagulation and recent surgery The patient is a full code. DIspo-PT/OT evals and transfer back to [facility] possibly tomorrow?
[2016-10-18] VITALS (9 sets, daily range): BP systolic 115–135; BP diastolic 72–80; PULSE 84–107; TEMP 36.8–37.2; O2SAT 94–99
[2016-10-18] MEDS: OXYCODONE HCL IR 5 MG TAB (IMMEDIATE RELEASE) PO PRN ×4 (01:04→20:31)
[2016-10-18 07:37] LABS: HEMATOCRIT 33.8 % (37-47); MEAN CELL VOLUME 83.5 fL (80-100); MEAN CORPUSCULAR HEMOGLOBIN 27.9 pg (25-34); MEAN CORPUSCULAR HGB CONC 33.4 g/dl (32-36); MEAN PLATELET VOLUME 8.5 fL (7.4-10.4); PLATELET COUNT 313 K/uL (130-400); RED BLOOD COUNT 4.05 M/uL (4.2-5.4); WHITE BLOOD COUNT 7.83 K/uL (4.8-10.8)
[2016-10-18 08:11] LABS: BUN/CREATININE RATIO 30.2 (10-20); CALCIUM 8.9 mg/dl (8.5-10.1); CREATININE 0.51 mg/dl (0.60-1.20); POTASSIUM 4.2 mmol/L (3.5-5.1)
[2016-10-18] MEDS: BISACODYL 10 MG SUPP PR SCH (09:00)
[2016-10-18] MEDS: POLYETHYLENE (MIRALAX) 17 GM PACK PO SCH (09:00)
[2016-10-18] MEDS: DOCUSATE SODIUM/SENNA 50/8.6MG TAB PO SCH ×2 (09:23→20:31)
[2016-10-18] MEDS: CALCIUM 600MG + VIT D 400 IU TAB PO SCH (09:23)
[2016-10-18] MEDS: ENOXAPARIN 60 MG/0.6 ML SYR SQ SCH ×2 (09:23→20:32)
[2016-10-18] MEDS: DOCUSATE SODIUM 100 MG CAP PO SCH ×2 (09:23→20:31)
[2016-10-18] MEDS: OSELTAMIVIR PHOSPHATE 75 MG CAP PO SCH (09:23)
[2016-10-18] MEDS: METOPROLOL TARTRATE 50 MG TAB PO SCH ×2 (09:23→20:32)
[2016-10-18] MEDS: LIDODERM (LIDOCAINE) PATCH 5% TD SCH (09:24)
[2016-10-18] MEDS: PANTOprazole SOD 40 MG TAB PO SCH (09:24)
[2016-10-18] MEDS ORDERED: GABAPENTIN 300 MG CAP PO ONE (12:11)
--- NOTE | 2016-10-18 12:22 | Hospitalist Progress Note ---
Hospitalist Progress Note Date of Service Oct 18, 2016. Subjective Pt evaluation today including: conversation w/ patient, physical exam, chart review, lab review, review of studies, review of inpatient medication list PO Intake: [place] po Voiding: franco catheter in place Pt could not participate in PT/OT today due to severe left upper back pain. No SOB, no CP, no new focal neuro symptoms other than numbness in legs and feet Constitutional: No fever Respiratory: No shortness of breath Cardiovascular: No chest pain Musculoskeletal: + problem reported (upper left back pain and lower back pain) Neurologic: + numbness/tingling (stable from previous feet and legs) Skin: No rash All Other Systems: Reviewed and Negative Objective Vital Signs Date Time Temp Pulse Resp B/P Pulse Ox O2 Delivery O2 Flow Rate FiO2 10/18/16 11:28 37.1 107 18 115/72 94 Room Air 10/18/16 08:07 36.8 88 18 123/75 95 Room Air 10/18/16 08:00 Room Air 10/18/16 04:00 36.8 84 18 135/79 95 Room Air 10/18/16 04:00 Room Air 10/18/16 00:00 36.9 101 20 131/80 98 Room Air 10/17/16 23:59 Room Air 10/17/16 20:00 Room Air 10/17/16 19:28 37.3 100 20 125/82 93 Room Air 10/17/16 16:00 95 Nasal Cannula 2.0 10/17/16 16:00 36.6 90 20 128/88 95 Nasal Cannula 2.0 10/17/16 14:03 94 Room Air 10/17/16 13:42 36.7 90 17 113/86 98 Nasal Cannula 2.0 10/17/16 12:17 36.8 111 18 120/77 94 Room Air Physical Exam General Appearance: no apparent distress, + thin Eyes: normal inspection, sclerae normal ENT: hearing grossly normal Neck: trachea midline Respiratory/Chest: normal breath sounds, no respiratory distress, no accessory muscle use Cardiovascular: regular rate, rhythm, no edema, no gallop, no murmur Abdomen: normal bowel sounds, soft, + tenderness (periumbilical without guarding or rebound) Extremities: non-tender, normal inspection, no pedal edema, no calf tenderness Neurologic/Psychiatric: alert, + depressed affect, + pertinent finding (+ sensory deficits in bilateral legs and feet to lt touch) Skin: normal color, warm/dry, no rash Laboratory Results Last 24 Hours Test 10/18/16 07:20 White Blood Count 7.83 K/uL Red Blood Count 4.05 M/uL Hemoglobin 11.3 g/dL Hematocrit 33.8 % Mean Corpuscular Volume 83.5 fL Mean Corpuscular Hemoglobin 27.9 pg Mean Corpuscular Hemoglobin Concent 33.4 g/dl RDW Standard Deviation 48.7 fL RDW Coefficient of Variation 15.8 % Platelet Count 313 K/uL Mean Platelet Volume 8.5 fL Sodium Level 133 mmol/L Potassium Level 4.2 mmol/L Chloride Level 96 mmol/L Carbon Dioxide Level 28 mmol/L Anion Gap 9.0 mmol/L Blood Urea Nitrogen 15 mg/dl Creatinine 0.51 mg/dl Est Creatinine Clear Calc Drug Dose 87.1 ml/min Estimated GFR () 109.8 Estimated GFR (Non- 94.7 BUN/Creatinine Ratio 30.2 Random Glucose 93 mg/dl Calcium Level 8.9 mg/dl Assessment and Plan This pt is a 76-year-old female here with bilateral pulmonary emboli, bilateral LE DVTs, recent spinal surgery for spontaneous epidural hematoma, and ovarian cancer with abdominal carcinomatosis. Pulmonary embolism Bilateral, Bilateral DVTs : -was on heparin drip and case d/w Neurosurgeon at [facility] by Dr. 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 - there was discussion about needing an A-port, we can coordinate this with hematology/oncology and perhaps temporary cease the Lovenox when she is stable for surgery --> Consult Gen Surgery appreciated, probably will be more like next week -continue Lovenox 1mg/kg q12 -Now Oncology and Vascular Surgery recommending placement of IVC filter given significant right heart strain and large clot burden in legs to prevent further PEs--> pt in agreement if her primary Oncology in [facility]--> he was in agreement--> IVC filter placed 10/17/15 Paroxysmal atrial fibrillation, Sinus tachycardia secondary to large PEs, Pulmonary hypertension-she is in sinus rhythm by EKG an on tele. Tachycardia slightly improved today. ECHO with evidence of right heart strain from PEs: Improving today ECHO: 1. Normal left ventricular size with hyperdynamic systolic function. EF 70-75%. No regional wall motion abnormalities visualized. Mild concentric left ventricular hypertrophy. * 2. The right ventricle is normal in size and function. * 3. There is moderate to severe tricuspid regurgitation. * 4. Moderate to severe pulmonary hypertension suggested; Estimated RVSP 59 mmHg. * 5. Limited 2-D echo with spectral and color Doppler. * 6. Compared to prior study on 09/26/2016, estimated RVSP is now moderately to severely elevated and there is now moderate to severe tricuspid regurgitation. - We will maintain her metoprolol with p.r.n. backup. -continue telemetry for now but could transition to med-surg tomorrow if consistently normal rates constipation-improved -we will maintain all of her bowel regimen from home -MiraLax as needed Indwelling Franco/Bladder dysfunction since back surgery/Epidural hematoma -consult Urology appreciated-plan is to maintain Franco and see them in office for further testing if fails voiding trial in 7 days -f/u as outpatient Ovarian CA-Oncology following -plans to start chemo after port placed Intradural hematoma, s/p decompression surgery on 09/29/[address] Mead [facility], back pain, residual neuro deficits in feet with numbness and weakness- Upper left back pain is her most significant complaint that started after surgery and before PEs, seems like neuropathic pain possibly just post-op from inflammation -PT/OT to resume when able to-need better pain control -watch for rebleeding in dural space given anticoagulation and recent surgery -Discussed pain control options and will start gabapentin 300mg bid today -hopeful for d/c back to [facility] when able to -Ortho Spine consult placed today -continue lidocaine patch, oxycodone prn The patient is a full code. DIspo-PT/OT evals and transfer back to [facility] possibly tomorrow?
--- NOTE | 2016-10-18 15:26 | Hematology/Oncology Prog Note ---
Hematology/Onc Progress Note Date of Service Oct 18, 2016. 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 Medications Medications Administered Medications (Trade) Dose Ordered Sig/Bianca Route Start Time Stop Time Status Last Admin Dose Admin Sodium Chloride (Nss 1000ml) 1,000 ml @ 999 mls/hr Q1H1M STAT IV 10/13/16 11:08 10/13/16 12:08 DC 10/13/16 11:22 999 MLS/HR Acetaminophen/ Hydrocodone Bitart ([place] 5/325 Tab) 2 tab ONE STAT PO 10/13/16 11:08 10/13/16 11:10 DC 10/13/16 11:24 2 TAB Bisacodyl (Dulcolax Supp) 10 mg DAILY [place] 10/14/16 09:00 11/13/16 08:59 10/16/16 08:58 10 MG Cyclobenzaprine HCl (Flexeril Tab) 10 mg Q8 PRN PO 10/13/16 14:15 11/12/16 14:14 10/16/16 17:18 10 MG Docusate Sodium (coLACE CAP) 100 mg BID PO 10/13/16 21:00 11/12/16 20:59 10/18/16 09:23 100 MG Lidocaine (Lidoderm Patch 5%) 1 patch DAILY TD 10/14/16 09:00 11/13/16 08:59 10/18/16 09:24 1 PATCH Metoprolol Tartrate (Lopressor Tab) 50 mg BID PO 10/13/16 21:00 11/12/16 20:59 10/18/16 09:23 50 MG Oseltamivir Phosphate (Tamiflu Cap) 75 mg DAILY PO 10/14/16 09:00 10/19/16 08:59 10/18/16 09:23 75 MG Senna/Docusate Sodium (Senokot S Tab) 1 tab BID PO 10/13/16 21:00 11/12/16 20:59 10/18/16 09:23 1 TAB Calcium/Vitamin D (Caltrate Plus Tab) 1 tab DAILY PO 10/14/16 09:00 11/13/16 08:59 10/18/16 09:23 1 TAB Polyethylene (Miralax Powder Packet) 17 gm DAILY PO 10/14/16 09:00 11/13/16 08:59 10/16/16 08:58 17 GM Miscellaneous (Remove Lidoderm Patch) 1 ea DAILY@21 N/A 10/13/16 21:00 11/12/16 20:59 10/16/16 20:54 1 EA Oxycodone HCl (Roxicodone Immediate Rel Tab) 10 mg Q6 PRN PO 10/13/16 14:30 10/14/16 18:17 DC 10/14/16 11:52 10 MG Morphine Sulfate (MoRPHine SULFATE INJ) 4 mg Q4H PRN IV 10/13/16 14:30 10/27/16 14:29 10/13/16 23:55 4 MG Morphine Sulfate (MoRPHine SULFATE INJ) 2 mg Q4H PRN IV 10/13/16 14:30 10/27/16 14:29 10/17/16 08:32 2 MG Metoprolol Tartrate 5 mg 5 mg Q4 PRN IV 10/13/16 14:30 11/12/16 14:29 10/13/16 21:10 5 MG Heparin Sodium/ Dextrose 500 ml @ 26 mls/hr [id number] PRN IV 10/13/16 16:45 10/15/16 15:06 DC 10/15/16 09:45 26 MLS/HR Heparin Sodium (Porcine) 2000 unit/Syringe 2 ml @ 10 mls/min NOW STAT IV 10/14/16 00:50 10/14/16 00:51 DC 10/14/16 01:00 10 MLS/MIN Heparin Sodium (Porcine)/Syringe (Heparin Iv Bolus/Syringe) 2 ml @ 10 mls/min TODAY@0915 ONCE IV 10/14/16 09:15 10/14/16 09:16 DC 10/14/16 10:04 10 MLS/MIN Sodium Chloride ([place] Nasal [place]) 2 sprays NOW ONCE NA 10/14/16 16:45 10/14/16 16:50 DC 10/14/16 18:15 2 SPRAYS Oxycodone HCl (Roxicodone Immediate Rel Tab) 10 mg Q4 PRN PO 10/14/16 20:00 10/28/16 19:59 10/18/16 11:44 10 MG Pantoprazole Sodium (Protonix Tab) 40 mg QAM PO 10/15/16 09:00 11/14/16 08:59 10/18/16 09:24 40 MG Pantoprazole Sodium (Protonix Tab) 40 mg 1816 ONCE PO 10/14/16 18:16 10/14/16 18:29 DC 10/14/16 21:05 40 MG Enoxaparin Sodium (Lovenox Inj) 60 mg Q12H SQ 10/15/16 19:00 11/14/16 18:59 10/18/16 09:23 60 MG Clindamycin Phosphate (Cleocin 600mg/ 54ml D5W) 600 mg STK-MED ONCE IV 10/17/16 12:02 10/17/16 12:03 DC 10/17/16 12:05 600 MG Metoprolol Tartrate (Lopressor Tab) 50 mg STK-MED ONCE .ROUTE 10/17/16 12:03 10/17/16 12:05 DC 10/17/16 12:08 50 MG Midazolam HCl (Versed Inj) 1 mg ONE ONCE IV 10/17/16 12:26 10/17/16 12:47 DC 10/17/16 12:26 1 MG Fentanyl Citrate (Fentanyl Inj) 50 mcg ONE ONCE IV 10/17/16 12:26 10/17/16 12:47 DC 10/17/16 12:26 50 MCG Iodixanol (Visipaque 50ml) 4,050 mg ONE ONCE IV 10/17/16 12:43 10/17/16 12:47 DC 10/17/16 12:43 4,050 MG Heparin Sodium/ Sodium Chloride (Heparin Sod/Ns 2 Units/Ml) 10 unit ONE ONCE OPR 10/17/16 12:43 10/17/16 12:47 DC 10/17/16 12:43 10 UNIT Gabapentin (Neurontin Cap) 300 mg 1211 ONCE PO 10/18/16 12:11 10/18/16 12:15 DC 10/18/16 12:38 300 MG Subjective She continues to have pleuritic chest pain but she feels that it might be actually improving. She denies new shortness of breath or hemoptysis. Review of Systems: Constitutional: Negative for night sweats, or fever Eyes: Negative for event change of vision ENT: Negative for epistaxis, nasal discharge, sore throat, or deafness Cardiovascular: Negative for chest pain, palpitations, dizziness, diaphoresis Respiratory: Negative for new shortness of breath,hemoptysis, or purulent cough Gastrointestinal: Negative for diarrhea, hematemesis, melena, nausea, vomiting , or dyspepsia Integumentary (skin): Negative for rash or jaundice discoloration Genitourinary: Negative for urinary frequency, hematuria, or dysuria Neurological: Negative for weakness, seizure activity, headache, or dizziness Lymphatic/Hematologic: Negative for petechiae, bleeding or new adenopathy Musculoskeletal: Negative for new joint or back pain Allergic/Immunologic: Negative for unusual rash or pruritis. Vital Signs Vital Signs Past 12 Hours Date Time Temp Pulse Resp B/P Pulse Ox O2 Delivery O2 Flow Rate FiO2 10/18/16 12:10 94 Room Air 10/18/16 11:28 37.1 107 18 115/72 94 Room Air 10/18/16 08:07 36.8 88 18 123/75 95 Room Air 10/18/16 08:00 Room Air 10/18/16 04:00 36.8 84 18 135/79 95 Room Air 10/18/16 04:00 Room Air Physical Exam Constitutional: vitals are stable. Eyes: Eyes are MEAGHAN EOMI without conjuctival erythema or icterus. ENT: External examination was negative for masses. Neck: Negative for masses or palpable thyromegaly Respiratory: Lung sounds were generally clear bilaterally Cardiovascular: Heart was RRR without significant murmur, gallops aoe rubs Gastrointestinal: No palpable hepatic or splenomegaly. The abdomen was soft with normal bowel sounds. Lymphatic system: there was no palpable peripheral lymphadenopathy Musculoskeletal System: The musculoskeletal system seemed concordant with age. Skin: The skin was negative for jaundice. Examination of the wound on her back does show what I believe is of very small collection of fluid at the apex of the incision. It does not appear to be an ecchymosis. Neurologic exam: The exam was negative for any focal findings. Deep tendon reflexes were equal and symmetrical. Psychiatric exam: Was essentially negative with normal mood and effect. Breast exam: Not done Constitutional: Level of Distress: mild distress (due to pain), chronically ill Psychiatric: Mental Status: active & alert Orientation: oriented except where noted Eyes: EOM: EOMI ENMT: pharynx normal Neck: supple Lungs: Respiratory Effort: no dyspnea Auscuitation: CTA except as noted Cardiovascular: Heart Auscultation: RRR, no murmurs Abdomen: Inspection & Palpation: soft, non-distended, pertinent finding (diffusely tender to palpation over all abdominal quadrants) Extremities: no cyanosis, no edema Neurologic: Cranial Nerves: grossly intact Laboratory Last 24 Hours Test 10/18/16 07:20 White Blood Count 7.83 K/uL Red Blood Count 4.05 M/uL Hemoglobin 11.3 g/dL Hematocrit 33.8 % Mean Corpuscular Volume 83.5 fL Mean Corpuscular Hemoglobin 27.9 pg Mean Corpuscular Hemoglobin Concent 33.4 g/dl RDW Standard Deviation 48.7 fL RDW Coefficient of Variation 15.8 % Platelet Count 313 K/uL Mean Platelet Volume 8.5 fL Sodium Level 133 mmol/L Potassium Level 4.2 mmol/L Chloride Level 96 mmol/L Carbon Dioxide Level 28 mmol/L Anion Gap 9.0 mmol/L Blood Urea Nitrogen 15 mg/dl Creatinine 0.51 mg/dl Est Creatinine Clear Calc Drug Dose 87.1 ml/min Estimated GFR () 109.8 Estimated GFR (Non- 94.7 BUN/Creatinine Ratio 30.2 Random Glucose 93 mg/dl Calcium Level 8.9 mg/dl Assessment & Plan She continues on Lovenox and seems to be doing quite well. I suspect discharge will be relatively imminent. We will arrange for a follow-up in our clinic to carry on with systemic therapy for her primary peritoneal carcinomatosis. She will remain on twice a day systemic therapeutic doses of Lovenox.
[2016-10-18] MEDS: GABAPENTIN 300 MG CAP PO SCH (20:31)
[2016-10-19] VITALS (9 sets, daily range): BP systolic 118–133; BP diastolic 72–85; PULSE 79–112; TEMP 36.5–36.9; O2SAT 95–98
[2016-10-19] MEDS: OXYCODONE HCL IR 5 MG TAB (IMMEDIATE RELEASE) PO PRN ×3 (03:35→17:06)
[2016-10-19 07:33] LABS: HEMATOCRIT 33.9 % (37-47); MEAN CELL VOLUME 84.3 fL (80-100); MEAN CORPUSCULAR HEMOGLOBIN 27.9 pg (25-34); MEAN PLATELET VOLUME 8.7 fL (7.4-10.4); PLATELET COUNT 352 K/uL (130-400); RED BLOOD COUNT 4.02 M/uL (4.2-5.4); WHITE BLOOD COUNT 7.97 K/uL (4.8-10.8)
[2016-10-19 07:58] LABS: BUN/CREATININE RATIO 25.1 (10-20); CALCIUM 9.1 mg/dl (8.5-10.1); CREATININE 0.6 mg/dl (0.60-1.20); MAGNESIUM 2.2 mg/dl (1.8-2.4); POTASSIUM 4.3 mmol/L (3.5-5.1)
[2016-10-19] MEDS: ENOXAPARIN 60 MG/0.6 ML SYR SQ SCH ×2 (08:20→20:40)
[2016-10-19] MEDS: CALCIUM 600MG + VIT D 400 IU TAB PO SCH (08:21)
[2016-10-19] MEDS: METOPROLOL TARTRATE 50 MG TAB PO SCH ×2 (08:21→20:41)
[2016-10-19] MEDS: PANTOprazole SOD 40 MG TAB PO SCH (08:21)
[2016-10-19] MEDS: GABAPENTIN 300 MG CAP PO SCH ×2 (08:21→20:40)
[2016-10-19] MEDS: DOCUSATE SODIUM/SENNA 50/8.6MG TAB PO SCH ×2 (08:21→20:41)
[2016-10-19] MEDS: DOCUSATE SODIUM 100 MG CAP PO SCH ×2 (08:21→20:40)
[2016-10-19] MEDS: LIDODERM (LIDOCAINE) PATCH 5% TD SCH (08:22)
[2016-10-19] MEDS: BISACODYL 10 MG SUPP PR SCH (08:22)
[2016-10-19] MEDS: POLYETHYLENE (MIRALAX) 17 GM PACK PO SCH (08:22)
--- NOTE | 2016-10-19 15:22 | Hematology/Oncology Prog Note ---
Hematology/Onc Progress Note Date of Service Oct 19, 2016. 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 Medications Medications Administered Medications (Trade) Dose Ordered Sig/Bianca Route Start Time Stop Time Status Last Admin Dose Admin Sodium Chloride (Nss 1000ml) 1,000 ml @ 999 mls/hr Q1H1M STAT IV 10/13/16 11:08 10/13/16 12:08 DC 10/13/16 11:22 999 MLS/HR Acetaminophen/ Hydrocodone Bitart ([place] 5/325 Tab) 2 tab ONE STAT PO 10/13/16 11:08 10/13/16 11:10 DC 10/13/16 11:24 2 TAB Bisacodyl (Dulcolax Supp) 10 mg DAILY [place] 10/14/16 09:00 11/13/16 08:59 10/16/16 08:58 10 MG Cyclobenzaprine HCl (Flexeril Tab) 10 mg Q8 PRN PO 10/13/16 14:15 11/12/16 14:14 10/16/16 17:18 10 MG Docusate Sodium (coLACE CAP) 100 mg BID PO 10/13/16 21:00 11/12/16 20:59 10/19/16 08:21 100 MG Lidocaine (Lidoderm Patch 5%) 1 patch DAILY TD 10/14/16 09:00 11/13/16 08:59 10/19/16 08:22 1 PATCH Metoprolol Tartrate (Lopressor Tab) 50 mg BID PO 10/13/16 21:00 11/12/16 20:59 10/19/16 08:21 50 MG Oseltamivir Phosphate (Tamiflu Cap) 75 mg DAILY PO 10/14/16 09:00 10/19/16 08:59 DC 10/18/16 09:23 75 MG Senna/Docusate Sodium (Senokot S Tab) 1 tab BID PO 10/13/16 21:00 11/12/16 20:59 10/19/16 08:21 1 TAB Calcium/Vitamin D (Caltrate Plus Tab) 1 tab DAILY PO 10/14/16 09:00 11/13/16 08:59 10/19/16 08:21 1 TAB Polyethylene (Miralax Powder Packet) 17 gm DAILY PO 1/1/17 09:00 11/13/16 08:59 10/16/16 08:58 17 GM Miscellaneous (Remove Lidoderm Patch) 1 ea DAILY@21 N/A 10/13/16 21:00 11/12/16 20:59 10/18/16 20:33 1 EA Oxycodone HCl (Roxicodone Immediate Rel Tab) 10 mg Q6 PRN PO 10/13/16 14:30 10/14/16 18:17 DC 10/14/16 11:52 10 MG Morphine Sulfate (MoRPHine SULFATE INJ) 4 mg Q4H PRN IV 10/13/16 14:30 10/27/16 14:29 10/13/16 23:55 4 MG Morphine Sulfate (MoRPHine SULFATE INJ) 2 mg Q4H PRN IV 10/13/16 14:30 10/27/16 14:29 10/17/16 08:32 2 MG Metoprolol Tartrate 5 mg 5 mg Q4 PRN IV 10/13/16 14:30 11/12/16 14:29 10/13/16 21:10 5 MG Heparin Sodium/ Dextrose 500 ml @ 26 mls/hr [id number] PRN IV 10/13/16 16:45 10/15/16 15:06 DC 10/15/16 09:45 26 MLS/HR Heparin Sodium (Porcine) 2000 unit/Syringe 2 ml @ 10 mls/min NOW STAT IV 10/14/16 00:50 10/14/16 00:51 DC 10/14/16 01:00 10 MLS/MIN Heparin Sodium (Porcine)/Syringe (Heparin Iv Bolus/Syringe) 2 ml @ 10 mls/min TODAY@0915 ONCE IV 10/14/16 09:15 10/14/16 09:16 DC 10/14/16 10:04 10 MLS/MIN Sodium Chloride ([place] Nasal [place]) 2 sprays NOW ONCE NA 10/14/16 16:45 10/14/16 16:50 DC 10/14/16 18:15 2 SPRAYS Oxycodone HCl (Roxicodone Immediate Rel Tab) 10 mg Q4 PRN PO 10/14/16 20:00 10/28/16 19:59 10/19/16 08:20 10 MG Pantoprazole Sodium (Protonix Tab) 40 mg QAM PO 10/15/16 09:00 11/14/16 08:59 10/19/16 08:21 40 MG Pantoprazole Sodium (Protonix Tab) 40 mg 1816 ONCE PO 10/14/16 18:16 10/14/16 18:29 DC 10/14/16 21:05 40 MG Enoxaparin Sodium (Lovenox Inj) 60 mg Q12H SQ 10/15/16 19:00 11/14/16 18:59 10/19/16 08:20 60 MG Clindamycin Phosphate (Cleocin 600mg/ 54ml D5W) 600 mg STK-MED ONCE IV 10/17/16 12:02 10/17/16 12:03 DC 10/17/16 12:05 600 MG Metoprolol Tartrate (Lopressor Tab) 50 mg STK-MED ONCE .ROUTE 10/17/16 12:03 10/17/16 12:05 DC 10/17/16 12:08 50 MG Midazolam HCl (Versed Inj) 1 mg ONE ONCE IV 10/17/16 12:26 10/17/16 12:47 DC 10/17/16 12:26 1 MG Fentanyl Citrate (Fentanyl Inj) 50 mcg ONE ONCE IV 10/17/16 12:26 10/17/16 12:47 DC 10/17/16 12:26 50 MCG Iodixanol (Visipaque 50ml) 4,050 mg ONE ONCE IV 10/17/16 12:43 10/17/16 12:47 DC 10/17/16 12:43 4,050 MG Heparin Sodium/ Sodium Chloride (Heparin Sod/Ns 2 Units/Ml) 10 unit ONE ONCE OPR 10/17/16 12:43 10/17/16 12:47 DC 10/17/16 12:43 10 UNIT Gabapentin (Neurontin Cap) 300 mg BID PO 10/18/16 21:00 11/17/16 20:59 10/19/16 08:21 300 MG Gabapentin (Neurontin Cap) 300 mg 1211 ONCE PO 10/18/16 12:11 10/18/16 12:15 DC 10/18/16 12:38 300 MG Subjective The pleuritic chest pain seems fairly well controlled. She denies new shortness of breath. However her back is bothering her in a [place] way about mid incision Review of Systems: Constitutional: Negative for night sweats, or fever Eyes: Negative for event change of vision ENT: Negative for epistaxis, nasal discharge, sore throat, or deafness Cardiovascular: Negative for chest pain other than the usual pleuritic pain and she's had before on the right, negative for palpitations, dizziness, diaphoresis Respiratory: Negative for new shortness of breath,hemoptysis, or purulent cough Gastrointestinal: Negative for diarrhea, hematemesis, melena, nausea, vomiting , or dyspepsia Integumentary (skin): Negative for rash or jaundice discoloration Neurological: Negative for weakness, seizure activity, headache, or dizziness Lymphatic/Hematologic: Negative for petechiae, bleeding or new adenopathy Musculoskeletal: Negative for new joint or back pain Allergic/Immunologic: Negative for unusual rash or pruritis. Vital Signs Vital Signs Past 12 Hours Date Time Temp Pulse Resp B/P Pulse Ox O2 Delivery O2 Flow Rate FiO2 10/19/16 13:44 36.9 81 18 98 2.0 10/19/16 11:48 98 Room Air 10/19/16 11:21 36.9 81 18 126/78 98 Room Air 10/19/16 08:03 Room Air 10/19/16 07:41 36.8 88 18 129/85 95 Room Air 10/19/16 04:00 Room Air 10/19/16 03:34 36.5 79 16 133/78 95 Room Air Physical Exam Constitutional: vitals are stable. Eyes: Eyes are MEAGHAN EOMI without conjuctival erythema or icterus. ENT: External examination was negative for masses. Neck: Negative for masses or palpable thyromegaly Respiratory: Lung sounds were generally clear bilaterally Cardiovascular: Heart was RRR without significant murmur, gallops aoe rubs Gastrointestinal: No palpable hepatic or splenomegaly. The abdomen was soft with normal bowel sounds. Lymphatic system: there was no palpable peripheral lymphadenopathy Musculoskeletal System: The musculoskeletal system seemed concordant with age. Skin: The skin was negative for jaundice. Neurologic exam: The exam was negative for any focal findings. Deep tendon reflexes were equal and symmetrical. Psychiatric exam: Was essentially negative with normal mood and effect. Breast exam: Not done Extremities: Negative for edema or erythema Constitutional: Level of Distress: mild distress (due to pain), chronically ill Psychiatric: Mental Status: active & alert Orientation: oriented except where noted Eyes: EOM: EOMI ENMT: pharynx normal Neck: supple Lungs: Respiratory Effort: no dyspnea Auscuitation: CTA except as noted Cardiovascular: Heart Auscultation: RRR, no murmurs Abdomen: Inspection & Palpation: soft, non-distended, pertinent finding (diffusely tender to palpation over all abdominal quadrants) Extremities: no cyanosis, no edema Neurologic: Cranial Nerves: grossly intact Laboratory Last 24 Hours Test 10/18/16 15:36 10/19/16 07:06 White Blood Count 7.97 K/uL Red Blood Count 4.02 M/uL Hemoglobin 11.2 g/dL Hematocrit 33.9 % Mean Corpuscular Volume 84.3 fL Mean Corpuscular Hemoglobin 27.9 pg Mean Corpuscular Hemoglobin Concent 33.0 g/dl RDW Standard Deviation 49.5 fL RDW Coefficient of Variation 16.0 % Platelet Count 352 K/uL Mean Platelet Volume 8.7 fL Sodium Level 134 mmol/L Potassium Level 4.3 mmol/L Chloride Level 98 mmol/L Carbon Dioxide Level 28 mmol/L Anion Gap 8.0 mmol/L Blood Urea Nitrogen 15 mg/dl Creatinine 0.60 mg/dl Est Creatinine Clear Calc Drug Dose 74.0 ml/min Estimated GFR () 104.1 Estimated GFR (Non- 89.8 BUN/Creatinine Ratio 25.1 Random Glucose 96 mg/dl Calcium Level 9.1 mg/dl Magnesium Level 2.2 mg/dl Assessment & Plan She continues on Lovenox and seems to be doing quite well. If her back pain continues and severe that an MRI of that thoracic lumbar spine should be done. The incision I she looks quite good. I don't see any ecchymosis around it.
--- NOTE | 2016-10-19 19:08 | Hospitalist Progress Note ---
Hospitalist Progress Note Date of Service Oct 19, 2016. Subjective Pt evaluation today including: conversation w/ patient, physical exam, chart review, review of studies, review of inpatient medication list PO Intake: [place] po Voiding: franco catheter in place Pt finally feeling much better today. Pain is much improved since starting on gabapentin yesterday. No l onger tachycardic, no SOB. SHe finally got up and ambulated with PT successfully. Constitutional: No fever Respiratory: No cough, No shortness of breath Cardiovascular: No chest pain Abdomen: + pain, No constipation Neurologic: + numbness/tingling All Other Systems: Reviewed and Negative Objective Vital Signs Date Time Temp Pulse Resp B/P Pulse Ox O2 Delivery O2 Flow Rate FiO2 10/19/16 17:00 Room Air 10/19/16 16:20 36.5 88 20 95 2.0 10/19/16 15:56 36.5 88 20 123/74 95 Room Air 10/19/16 13:44 36.9 81 18 98 2.0 10/19/16 11:48 98 Room Air 10/19/16 11:21 36.9 81 18 126/78 98 Room Air 10/19/16 08:03 Room Air 10/19/16 07:41 36.8 88 18 129/85 95 Room Air 10/19/16 04:00 Room Air 10/19/16 03:34 36.5 79 16 133/78 95 Room Air 10/18/16 23:59 Room Air 10/18/16 23:28 36.9 92 18 133/79 98 Room Air 10/18/16 20:05 37.2 99 20 133/78 99 Nasal Cannula 2.0 10/18/16 20:00 Room Air Physical Exam General Appearance: WD/WN, no apparent distress Eyes: normal inspection, sclerae normal Neck: trachea midline Respiratory/Chest: normal breath sounds, no respiratory distress, no accessory muscle use Cardiovascular: regular rate, rhythm, no edema, no gallop, no JVD, no murmur Abdomen: normal bowel sounds, soft, + tenderness (mild, diffuse w/o guarding) Extremities: non-tender, normal inspection, no pedal edema, no calf tenderness Neurologic/Psychiatric: alert, normal mood/affect, oriented x 3 Skin: normal color, warm/dry, no rash Laboratory Results Last 24 Hours Test 10/19/16 07:06 White Blood Count 7.97 K/uL Red Blood Count 4.02 M/uL Hemoglobin 11.2 g/dL Hematocrit 33.9 % Mean Corpuscular Volume 84.3 fL Mean Corpuscular Hemoglobin 27.9 pg Mean Corpuscular Hemoglobin Concent 33.0 g/dl RDW Standard Deviation 49.5 fL RDW Coefficient of Variation 16.0 % Platelet Count 352 K/uL Mean Platelet Volume 8.7 fL Sodium Level 134 mmol/L Potassium Level 4.3 mmol/L Chloride Level 98 mmol/L Carbon Dioxide Level 28 mmol/L Anion Gap 8.0 mmol/L Blood Urea Nitrogen 15 mg/dl Creatinine 0.60 mg/dl Est Creatinine Clear Calc Drug Dose 74.0 ml/min Estimated GFR () 104.1 Estimated GFR (Non- 89.8 BUN/Creatinine Ratio 25.1 Random Glucose 96 mg/dl Calcium Level 9.1 mg/dl Magnesium Level 2.2 mg/dl Assessment and Plan This pt is a 76-year-old female here with bilateral pulmonary emboli, bilateral LE DVTs, recent spinal surgery for spontaneous epidural hematoma, and ovarian cancer with abdominal carcinomatosis. Pulmonary embolism Bilateral, Bilateral DVTs : -was on heparin drip and case d/w Neurosurgeon at [facility] [place] by Dr. Casey who agreed to treat PE outweighs risk of bleeding from recent spine surgery -consult hematology/oncology appreciated-plans for Lovenox personalization specialist in setting of malignancy with DVT/PE - there was discussion about needing an A-port, we can coordinate this with hematology/oncology and perhaps temporary cease the Lovenox when she is stable for surgery --> Consult Gen Surgery appreciated, probably will be more like next week -continue Lovenox 1mg/kg q12 -Now Oncology and Vascular Surgery recommending placement of IVC filter given significant right heart strain and large clot burden in legs to prevent further PEs--> pt in agreement if her primary Oncology in [facility]--> he was in agreement--> IVC filter placed 10/17/15 Paroxysmal atrial fibrillation, Sinus tachycardia secondary to large PEs, Pulmonary hypertension-she is in sinus rhythm by EKG an on tele. Tachycardia now resolved. ECHO with evidence of right heart strain from PEs ECHO: 1. Normal left ventricular size with hyperdynamic systolic function. EF 70-75%. No regional wall motion abnormalities visualized. Mild concentric left ventricular hypertrophy. * 2. The right ventricle is normal in size and function. * 3. There is moderate to severe tricuspid regurgitation. * 4. Moderate to severe pulmonary hypertension suggested; Estimated RVSP 59 mmHg. * 5. Limited 2-D echo with spectral and color Doppler. * 6. Compared to prior study on 09/26/2016, estimated RVSP is now moderately to severely elevated and there is now moderate to severe tricuspid regurgitation. - We will maintain her metoprolol with p.r.n. backup. -transition to med-surg today constipation-improved -we will maintain all of her bowel regimen from home -MiraLax as needed Indwelling Franco/Bladder dysfunction since back surgery/Intradural hematoma -consult Urology appreciated-plan is to maintain Franco and see them in office for further testing if fails voiding trial in 7 days -f/u as outpatient Ovarian CA-Oncology following -plans to start chemo after port placed -Her Oncologist at [facility] sent a chemo regimen to Onco here and will f/u as outpt after discharge Intradural hematoma, s/p decompression [facility] 09/29/[address] [facility], back pain, residual neuro deficits in feet with numbness and weakness- Upper left back pain is her most significant complaint that started after surgery and before PEs, seems like neuropathic pain possibly just post-op from inflammation MUCH IMPROVED on gabapentin -PT/OT to resume when able to-need better pain control -watch for rebleeding in dural space given anticoagulation and recent surgery -Discussed pain control options and started gabapentin 300mg bid on 10/19 -hopeful for d/c back to [facility] when able to -continue lidocaine patch, oxycodone prn and decrease if gabapentin helping The patient is a full code. DIspo-PT/OT evals and transfer back to [facility] when approved
[2016-10-19] MEDS: OSELTAMIVIR PHOSPHATE 75 MG CAP PO SCH (19:16)
[2016-10-19] MEDS: CYCLOBENZAPRINE HCL 10 MG TAB PO PRN (22:20)
[2016-10-20] VITALS: O2SAT 95
[2016-10-20 06:56] LABS: HEMATOCRIT 35.8 % (37-47); MEAN CELL VOLUME 84.2 fL (80-100); MEAN CORPUSCULAR HEMOGLOBIN 27.8 pg (25-34); MEAN PLATELET VOLUME 8.6 fL (7.4-10.4); PLATELET COUNT 371 K/uL (130-400); RED BLOOD COUNT 4.25 M/uL (4.2-5.4); WHITE BLOOD COUNT 8.24 K/uL (4.8-10.8)
[2016-10-20 07:12] LABS: CALCIUM 9.2 mg/dl (8.5-10.1); CREATININE 0.53 mg/dl (0.60-1.20); POTASSIUM 4.1 mmol/L (3.5-5.1)
[2016-10-20 07:23] VITALS: BP 135/77; PULSE 87; TEMP 36.7; O2SAT 98
[2016-10-20] MEDS: POLYETHYLENE (MIRALAX) 17 GM PACK PO SCH (08:00)
[2016-10-20] MEDS: BISACODYL 10 MG SUPP PR SCH (08:00)
[2016-10-20] MEDS: DOCUSATE SODIUM/SENNA 50/8.6MG TAB PO SCH (08:01)
[2016-10-20] MEDS: DOCUSATE SODIUM 100 MG CAP PO SCH (08:01)
[2016-10-20] MEDS: GABAPENTIN 300 MG CAP PO SCH (08:01)
[2016-10-20] MEDS: CALCIUM 600MG + VIT D 400 IU TAB PO SCH (08:02)
[2016-10-20] MEDS: LIDODERM (LIDOCAINE) PATCH 5% TD SCH (08:02)
[2016-10-20] MEDS: PANTOprazole SOD 40 MG TAB PO SCH (08:02)
[2016-10-20] MEDS: METOPROLOL TARTRATE 50 MG TAB PO SCH (08:02)
[2016-10-20] MEDS: ENOXAPARIN 60 MG/0.6 ML SYR SQ SCH (08:03)
--- NOTE | 2016-10-20 11:06 | Hematology/Oncology Prog Note ---
Hematology/Onc Progress Note Date of Service Oct 20, 2016. 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 Medications Medications Administered Medications (Trade) Dose Ordered Sig/Bianca Route Start Time Stop Time Status Last Admin Dose Admin Sodium Chloride (Nss 1000ml) 1,000 ml @ 999 mls/hr Q1H1M STAT IV 10/13/16 11:08 10/13/16 12:08 DC 10/13/16 11:22 999 MLS/HR Acetaminophen/ Hydrocodone Bitart ([place] 5/325 Tab) 2 tab ONE STAT PO 10/13/16 11:08 10/13/16 11:10 DC 10/13/16 11:24 2 TAB Bisacodyl (Dulcolax Supp) 10 mg DAILY SD 10/14/16 09:00 11/13/16 08:59 10/16/16 08:58 10 MG Cyclobenzaprine HCl (Flexeril Tab) 10 mg Q8 PRN PO 10/13/16 14:15 11/12/16 14:14 10/19/16 22:20 10 MG Docusate Sodium (coLACE CAP) 100 mg BID PO 10/13/16 21:00 11/12/16 20:59 10/20/16 08:01 100 MG Lidocaine (Lidoderm Patch 5%) 1 patch DAILY TD 10/14/16 09:00 11/13/16 08:59 10/20/16 08:02 1 PATCH Metoprolol Tartrate (Lopressor Tab) 50 mg BID PO 10/13/16 21:00 11/12/16 20:59 10/20/16 08:02 50 MG Oseltamivir Phosphate (Tamiflu Cap) 75 mg DAILY PO 10/14/16 09:00 10/19/16 08:59 DC 10/18/16 09:23 75 MG Senna/Docusate Sodium (Senokot S Tab) 1 tab BID PO 10/13/16 21:00 11/12/16 20:59 10/20/16 08:01 1 TAB Calcium/Vitamin D (Caltrate Plus Tab) 1 tab DAILY PO 10/14/16 09:00 11/13/16 08:59 10/20/16 08:02 1 TAB Polyethylene (Miralax Powder Packet) 17 gm DAILY PO 1/1/17 09:00 11/13/16 08:59 10/16/16 08:58 17 GM Miscellaneous (Remove Lidoderm Patch) 1 ea DAILY@21 N/A 10/13/16 21:00 11/12/16 20:59 10/19/16 20:42 1 EA Oxycodone HCl (Roxicodone Immediate Rel Tab) 10 mg Q6 PRN PO 10/13/16 14:30 10/14/16 18:17 DC 10/14/16 11:52 10 MG Morphine Sulfate (MoRPHine SULFATE INJ) 4 mg Q4H PRN IV 10/13/16 14:30 10/27/16 14:29 10/13/16 23:55 4 MG Morphine Sulfate (MoRPHine SULFATE INJ) 2 mg Q4H PRN IV 10/13/16 14:30 10/27/16 14:29 10/17/16 08:32 2 MG Metoprolol Tartrate 5 mg 5 mg Q4 PRN IV 10/13/16 14:30 11/12/16 14:29 10/13/16 21:10 5 MG Heparin Sodium/ Dextrose 500 ml @ 26 mls/hr [id number] PRN IV 10/13/16 16:45 10/15/16 15:06 DC 10/15/16 09:45 26 MLS/HR Heparin Sodium (Porcine) 2000 unit/Syringe 2 ml @ 10 mls/min NOW STAT IV 10/14/16 00:50 10/14/16 00:51 DC 10/14/16 01:00 10 MLS/MIN Heparin Sodium (Porcine)/Syringe (Heparin Iv Bolus/Syringe) 2 ml @ 10 mls/min TODAY@0915 ONCE IV 10/14/16 09:15 10/14/16 09:16 DC 10/14/16 10:04 10 MLS/MIN Sodium Chloride ([place] Nasal [place]) 2 sprays NOW ONCE NA 10/14/16 16:45 10/14/16 16:50 DC 10/14/16 18:15 2 SPRAYS Oxycodone HCl (Roxicodone Immediate Rel Tab) 10 mg Q4 PRN PO 10/14/16 20:00 10/28/16 19:59 10/19/16 17:06 10 MG Pantoprazole Sodium (Protonix Tab) 40 mg QAM PO 10/15/16 09:00 11/14/16 08:59 10/20/16 08:02 40 MG Pantoprazole Sodium (Protonix Tab) 40 mg 1816 ONCE PO 10/14/16 18:16 10/14/16 18:29 DC 10/14/16 21:05 40 MG Enoxaparin Sodium (Lovenox Inj) 60 mg Q12H SQ 10/15/16 19:00 11/14/16 18:59 10/20/16 08:03 60 MG Clindamycin Phosphate (Cleocin 600mg/ 54ml D5W) 600 mg STK-MED ONCE IV 10/17/16 12:02 10/17/16 12:03 DC 10/17/16 12:05 600 MG Metoprolol Tartrate (Lopressor Tab) 50 mg STK-MED ONCE .ROUTE 10/17/16 12:03 10/17/16 12:05 DC 10/17/16 12:08 50 MG Midazolam HCl (Versed Inj) 1 mg ONE ONCE IV 10/17/16 12:26 10/17/16 12:47 DC 10/17/16 12:26 1 MG Fentanyl Citrate (Fentanyl Inj) 50 mcg ONE ONCE IV 10/17/16 12:26 10/17/16 12:47 DC 10/17/16 12:26 50 MCG Iodixanol (Visipaque 50ml) 4,050 mg ONE ONCE IV 10/17/16 12:43 10/17/16 12:47 DC 10/17/16 12:43 4,050 MG Heparin Sodium/ Sodium Chloride (Heparin Sod/Ns 2 Units/Ml) 10 unit ONE ONCE OPR 10/17/16 12:43 10/17/16 12:47 DC 10/17/16 12:43 10 UNIT Gabapentin (Neurontin Cap) 300 mg BID PO 10/18/16 21:00 11/17/16 20:59 10/20/16 08:01 300 MG Gabapentin (Neurontin Cap) 300 mg 1211 ONCE PO 10/18/16 12:11 10/18/16 12:15 DC 10/18/16 12:38 300 MG Subjective She complains this morning and appears uncomfortable with pain that is mildly radicular in the right flank as well as worsening numbness in both feet. She denies new shortness of breath or hemoptysis. She has been afebrile Review of Systems: Constitutional: Negative for night sweats, or fever Eyes: Negative for event change of vision ENT: Negative for epistaxis, nasal discharge, sore throat, or deafness Cardiovascular: Negative for new chest pain (recent history of right pleuritic chest pain), palpitations, dizziness, diaphoresis Respiratory: Negative for new shortness of breath,hemoptysis, or purulent cough Gastrointestinal: Negative for diarrhea, hematemesis, melena, nausea, vomiting , or dyspepsia Integumentary (skin): Negative for rash or jaundice discoloration Neurological: She is always had some numbness in her feet but she states that it is worse today Lymphatic/Hematologic: Negative for petechiae, bleeding or new adenopathy Musculoskeletal: Negative for new joint or back pain although she has had continuing back pain postoperatively Allergic/Immunologic: Negative for unusual rash or pruritis. Vital Signs Vital Signs Past 12 Hours Date Time Temp Pulse Resp B/P Pulse Ox O2 Delivery O2 Flow Rate FiO2 10/20/16 07:23 36.7 87 18 135/77 98 Room Air 10/20/16 00:00 95 Room Air 10/19/16 23:39 36.9 112 22 118/72 95 Room Air Physical Exam Constitutional: vitals are stable. Eyes: Eyes are MEAGHAN EOMI without conjuctival erythema or icterus. ENT: External examination was negative for masses. Neck: Negative for masses or palpable thyromegaly Respiratory: Lung sounds were generally clear bilaterally Gastrointestinal: No palpable hepatic or splenomegaly. The abdomen was soft with normal bowel sounds. Lymphatic system: there was no palpable peripheral lymphadenopathy Musculoskeletal System: The musculoskeletal system seemed concordant with age. Skin: The skin was negative for jaundice. Neurologic exam: The exam was negative for any focal findings. Able to move all extremities. Motor steiner she appears intact Psychiatric exam: Was essentially negative with normal mood and effect. Breast exam: Not done Extremities: Negative for edema erythema Constitutional: Level of Distress: mild distress (due to pain), chronically ill Psychiatric: Mental Status: active & alert Orientation: oriented except where noted Eyes: EOM: EOMI ENMT: pharynx normal Neck: supple Lungs: Respiratory Effort: no dyspnea Auscuitation: CTA except as noted Cardiovascular: Heart Auscultation: RRR, no murmurs Abdomen: Inspection & Palpation: soft, non-distended, pertinent finding (diffusely tender to palpation over all abdominal quadrants) Extremities: no cyanosis, no edema Neurologic: Cranial Nerves: grossly intact Laboratory Last 24 Hours Test 10/20/16 06:27 White Blood Count 8.24 K/uL Red Blood Count 4.25 M/uL Hemoglobin 11.8 g/dL Hematocrit 35.8 % Mean Corpuscular Volume 84.2 fL Mean Corpuscular Hemoglobin 27.8 pg Mean Corpuscular Hemoglobin Concent 33.0 g/dl RDW Standard Deviation 49.3 fL RDW Coefficient of Variation 16.0 % Platelet Count 371 K/uL Mean Platelet Volume 8.6 fL Sodium Level 137 mmol/L Potassium Level 4.1 mmol/L Chloride Level 97 mmol/L Carbon Dioxide Level 29 mmol/L Anion Gap 11.0 mmol/L Blood Urea Nitrogen 14 mg/dl Creatinine 0.53 mg/dl Est Creatinine Clear Calc Drug Dose 83.8 ml/min Estimated GFR () 108.4 Estimated GFR (Non- 93.5 BUN/Creatinine Ratio 27.0 Random Glucose 90 mg/dl Calcium Level 9.2 mg/dl Assessment & Plan I am concerned with the complaints of worsening numbness in her feet as well as what might now be radicular pain on the right that there may be worsening issues around the spinal canal. I have reviewed this with Dr. Cantu and believe that an MRI of the thoracic and lumbar spine should be done. I did alert radiology to the possibility of this imaging. If in fact more fluid has collected the might be recurring hematoma than she most likely would be needed to be transferred to a [facility] where her neurosurgical procedure originally occurred. Otherwise supportive and anticoagulant care with Lovenox continues.
--- NOTE | 2016-10-20 11:34 | Hospitalist Progress Note ---
Hospitalist Progress Note Date of Service Oct 20, 2016. Subjective Pt evaluation today including: conversation w/ patient, conversation w/ family , physical exam, chart review, lab review, review of studies, conversation w/ creative consultant (Dr. Zhang, Dr. Frank), review of inpatient medication list Voiding: franco catheter in place Pt has developed new right lower back pain radiating to bilateral anterior thighs and worsening left leg weakness that she thinks started sometime last night. She has continued numbness in her feet L>R and is not sure if it's worse than previous. Dr. Zhang contacted me about this right away and I also discussed with Dr. Frank by phone who recommended MRI T and L spine and then contacting pt's established NS at [facility] after testing completed. Discussed with daughter and pt in depth. Otherwise, no CP or SOB. She was still able to ambulate to the bathroom this morning. Constitutional: No fever Respiratory: No shortness of breath Cardiovascular: No chest pain Abdomen: No constipation Musculoskeletal: + problem reported (rt flank pain radiating to anterior thighs as per HPI) Neurologic: + numbness/tingling, + weakness Objective Vital Signs Date Time Temp Pulse Resp B/P Pulse Ox O2 Delivery O2 Flow Rate FiO2 10/20/16 09:00 Room Air 10/20/16 07:23 36.7 87 18 135/77 98 Room Air 10/20/16 00:00 95 Room Air 10/19/16 23:39 36.9 112 22 118/72 95 Room Air 10/19/16 20:00 95 Room Air 2.0 10/19/16 17:00 Room Air 10/19/16 16:20 36.5 88 20 95 2.0 10/19/16 15:56 36.5 88 20 123/74 95 Room Air 10/19/16 13:44 36.9 81 18 98 2.0 10/19/16 11:48 98 Room Air Physical Exam General Appearance: WD/WN, no apparent distress Eyes: normal inspection, sclerae normal ENT: hearing grossly normal Respiratory/Chest: lungs clear, normal breath sounds, no respiratory distress, no accessory muscle use Cardiovascular: regular rate, rhythm, no edema, no gallop, no murmur Abdomen: normal bowel sounds, soft, + tenderness (mild diffuse without guarding or rebound) Extremities: no calf tenderness Neurologic/Psychiatric: alert, oriented x 3, + depressed affect, + pertinent finding (5/5 strength in UEs throughout, 3/5 in left hip flexor/knee flexion and extension but 5/5 in left plantar and dorsiflexion, 5/5 in RLE;sensation intact throughout upper and lower extremities to light touch except decreased in entire left foot compared to right foot and actually less in left lateral leg than in left foot, slightly inconsistent on exam; DTRs unable to ellicit in upper or lower extremities except 1+ in biceps bilat) Skin: normal color, warm/dry, no rash Laboratory Results Last 24 Hours Test 10/20/16 06:27 White Blood Count 8.24 K/uL Red Blood Count 4.25 M/uL Hemoglobin 11.8 g/dL Hematocrit 35.8 % Mean Corpuscular Volume 84.2 fL Mean Corpuscular Hemoglobin 27.8 pg Mean Corpuscular Hemoglobin Concent 33.0 g/dl RDW Standard Deviation 49.3 fL RDW Coefficient of Variation 16.0 % Platelet Count 371 K/uL Mean Platelet Volume 8.6 fL Sodium Level 137 mmol/L Potassium Level 4.1 mmol/L Chloride Level 97 mmol/L Carbon Dioxide Level 29 mmol/L Anion Gap 11.0 mmol/L Blood Urea Nitrogen 14 mg/dl Creatinine 0.53 mg/dl Est Creatinine Clear Calc Drug Dose 83.8 ml/min Estimated GFR () 108.4 Estimated GFR (Non- 93.5 BUN/Creatinine Ratio 27.0 Random Glucose 90 mg/dl Calcium Level 9.2 mg/dl Assessment and Plan This pt is a 76-year-old female here with bilateral pulmonary emboli, bilateral LE DVTs, recent spinal surgery for spontaneous epidural hematoma, and ovarian cancer with abdominal carcinomatosis. Pulmonary embolism Bilateral, Bilateral DVTs : -was on heparin drip and case d/w Neurosurgeon at [facility] by Dr. Casey who agreed to treat PE outweighs risk of bleeding from recent spine surgery -consult hematology/oncology appreciated-plans for Lovenox longterm in setting of malignancy with DVT/PE - there was discussion about needing an A-port, we can coordinate this with hematology/oncology and perhaps temporary cease the Lovenox when she is stable for surgery --> Consult Gen Surgery appreciated, probably will be more like next week -continue Lovenox 1mg/kg q12 but will hold if new bleeding found on MRI today -Oncology and Vascular Surgery recommending placement of IVC filter given significant right heart strain and large clot burden in legs to prevent further PEs--> pt in agreement if her primary Oncology in [facility]--> he was in agreement--> IVC filter placed 10/17/15 Paroxysmal atrial fibrillation, Sinus tachycardia secondary to large PEs, Pulmonary hypertension-she is in sinus rhythm by EKG an on tele. Tachycardia now resolved. ECHO with evidence of right heart strain from PEs ECHO: 1. Normal left ventricular size with hyperdynamic systolic function. EF 70-75%. No regional wall motion abnormalities visualized. Mild concentric left ventricular hypertrophy. * 2. The right ventricle is normal in size and function. * 3. There is moderate to severe tricuspid regurgitation. * 4. Moderate to severe pulmonary hypertension suggested; Estimated RVSP 59 mmHg. * 5. Limited 2-D echo with spectral and color Doppler. * 6. Compared to prior study on 09/26/2016, estimated RVSP is now moderately to severely elevated and there is now moderate to severe tricuspid regurgitation. - We will maintain her metoprolol with p.r.n. backup. -transitioned to med-surg constipation-improved -we will maintain all of her bowel regimen from home -MiraLax as needed Indwelling Franco/Bladder dysfunction since back surgery/Intradural hematoma -consult Urology appreciated-plan is to maintain Franco and see them in office for further testing if fails voiding trial in 7 days -f/u as outpatient Ovarian CA-Oncology following -plans to start chemo after port placed -Her Oncologist at [place] sent a chemo regimen to Onco here and will f/u as outpt after discharge H/O Intradural vs ?Epidural large hematoma, s/p decompression surgery on with Dr. Mead at [facility], back pain, residual neuro deficits in feet with numbness and weakness- on 10/20/16 with worsening weakness LLE and right flank pain with radiation to anterior thighs bilat Upper left back pain is her most significant complaint that started after surgery and before PEs, seems like neuropathic pain possibly just post-op from inflammation MUCH IMPROVED on gabapentin however now with new symptoms as above -STAT MRI thoracic and lumbar spine today to assess for rebleed on anticoagulation -If rebleeding, will contact her NS at [facility] and consider transfer there -if MRIs are unchanged, consider MSK pain from other sources vs kidney stone as cause of flank pain -PT/OT -watch for rebleeding in dural space given anticoagulation and recent surgery -Discussed pain control options and started gabapentin 300mg bid on 10/19 -hopeful for d/c back to [facility] when able to -continue lidocaine patch, oxycodone prn and decrease oxycodone use if gabapentin helping The patient is a full code. DIspo-PT/OT evals and transfer back to [facility] when approved
[2016-10-20 15:06] VITALS: BP 138/78; PULSE 94; TEMP 36.4; O2SAT 95
--- NOTE | 2016-10-20 15:07 | DIAGNOSTIC IMAGING REPORT ---
MRI OF THE THORACIC SPINE WITHOUT CONTRAST CLINICAL HISTORY: Radiculopathy. Recent evacuation of intracanalicular hemorrhage. COMPARISON: MRI of the thoracic spine September 25, 2016. TECHNIQUE: Utilizing a 1.5 Fátima magnet and dedicated coil, multiplanar, multiecho imaging of the thoracic spine was performed without IV contrast. FINDINGS: Alignment of the thoracic spine is anatomic. Vertebral body heights are maintained. A T1 and T2 hyperintense lesion within the left posterior aspect of the T5 vertebral body extending into the posterior elements is unchanged. This favors an atypical hemangioma. Interval note is made of a right pleural effusion. Right lower lung airspace opacity is depicted on recent chest CT. There are post surgical findings consistent with an interval posterior decompression extending from the T9-T11 levels. Overall, the amount of intracanalicular hemorrhage within the thoracic canal has significantly diminished since exam of September 25, 2016. There is no operative bed fluid collection. Note is made of persistent subtle signal abnormality posterior to the thoracic cord extending from the T1-T8 levels. There is mild mass effect upon the cord. This fluid is nearly isointense to CSF with areas of intermediate signal intensity. This suspected hemorrhage may be subdural in location although the exact compartment is difficult to define on this study. Thoracic cord signal has significantly improved and is now near normal. IMPRESSION: Status post interval lower thoracic spine posterior decompression. Overall, significant decrease in the amount of intracanalicular hemorrhage within the thoracic canal since MRI of September 25, 2016. Persistent signal abnormality posterior to the thoracic cord extending from approximately the T1-T8 levels with mild mass effect upon the cord. This suggests residual hemorrhage. Exact compartment is difficult to define on this exam although this may be subdural in location. Significant interval improvement in mass effect upon the thoracic cord with near complete resolution of thoracic cord edema. Electronically signed by: González Huggins M.D. 10/20/2016 3:05 PM Dictated Date/Time: 10/20/2016 1:49 PM
--- NOTE | 2016-10-20 15:15 | DIAGNOSTIC IMAGING REPORT ---
MRI OF THE LUMBAR SPINE WITHOUT CONTRAST CLINICAL HISTORY: Evaluate for intradural hematoma. Recent evacuation of intraventricular hemorrhage. COMPARISON STUDY: MRI of the lumbar spine September 25, 2016. TECHNIQUE: Utilizing a 1.5 Fátima magnet and dedicated coil, multiplanar, multiecho imaging of the lumbar spine was performed without IV contrast. FINDINGS: The thoracic spine MRI will be reported separately. For purposes of numbering on this exam, the L5-S1 disc space is assigned to axial image 27 of 30. Numerous T1 and T2 hyperintense lesions within the lumbar spine suggest hemangiomas. Note is made of partially visualized cystic masses within the pelvis as well as cystic implants within the right aspect of the abdomen. These were shown on prior abdominal CT. These are suboptimal assessed on this exam. Mild multilevel degenerative changes are present. The conus terminates at the L1-L2 level. Layering blood products within the sacral canal have slightly increased since exam of September 25, 2016. There is mild mass effect upon the inferior thecal sac. Intermediate signal intensity material within the left aspect of the canal, possibly within the thecal sac is again noted. This is similar to prior exam of September 25, 2016. Note is again made of T2 hyperintense, T1 hypointense fluid with mass effect upon the thecal sac which is similar in signal intensity to CSF. This involves the lower thoracic spine as well as the majority of the lumbar spine. This was shown on prior MRI of September 25, 2016. This may represent subdural fluid although the exact compartment is difficult to define on this exam. IMPRESSION: Redemonstration of multiple foci of intracanalicular hemorrhage within the lumbosacral canal. This hemorrhage may be subdural or subarachnoid in location. Mild increase in amount of suspected blood within the posterior lower lumbar and sacral canal with moderate increase in mass effect upon the posterior aspect of the cauda equina. Otherwise, mass effect upon the thecal sac is similar to prior study. Electronically signed by: Goznález Huggins M.D. 10/20/2016 3:13 PM Dictated Date/Time: 10/20/2016 2:20 PM
[2016-10-20] MEDS ORDERED: PROTAMINE SULFATE INJ 20 MG in DEXTROSE 5% 50ML 50 ML IV ONE (16:00)
[2016-10-20] MEDS ORDERED: PROTAMINE SULFATE IV ONE (16:15)
[2016-10-20] MEDS ORDERED: DEXTROSE 5% IV ONE (16:15)
[2016-10-20] MEDS ORDERED: PRT40 PO (16:16)
[2016-10-20] MEDS ORDERED: NRN300 PO (16:16)
[2016-10-20] MEDS ORDERED: RXC5 PO (16:16)
--- NOTE | 2016-10-20 16:23 | Discharge Instructions ---
Discharge Instructions Admission Reason for Admission: Pulmonary Embolism Discharge Discharge Diagnosis / Problem: DVT/PE, Acute subdural hemorrhage spinal column Discharge Goals Goal(s): Improve disease control, Diagnostic testing, Therapeutic intervention Activity Recommendations Activity Limitations: as noted below Exercise/Sports Limitations: rest today . Instructions / Follow-Up Instructions / Follow-Up Transfer to [facility] Neurosurgical Service, Surgical Trauma ICU for worsening focal neurological deficits secondary to hemorrhage in subdural space and compression of cauda equina MRI OF THE LUMBAR SPINE WITHOUT CONTRAST CLINICAL HISTORY: Evaluate for intradural hematoma. Recent evacuation of intraventricular hemorrhage. COMPARISON STUDY: MRI of the lumbar spine September 25, 2016. TECHNIQUE: Utilizing a 1.5 Fátima magnet and dedicated coil, multiplanar, multiecho imaging of the lumbar spine was performed without IV contrast. FINDINGS: The thoracic spine MRI will be reported separately. For purposes of numbering on this exam, the L5-S1 disc space is assigned to axial image 27 of 30. Numerous T1 and T2 hyperintense lesions within the lumbar spine suggest hemangiomas. Note is made of partially visualized cystic masses within the pelvis as well as cystic implants within the right aspect of the abdomen. These were shown on prior abdominal CT. These are suboptimal assessed on this exam. Mild multilevel degenerative changes are present. The conus terminates at the L1-L2 level. Layering blood products within the sacral canal have slightly increased since exam of September 25, 2016. There is mild mass effect upon the inferior thecal sac. Intermediate signal intensity material within the left aspect of the canal, possibly within the thecal sac is again noted. This is similar to prior exam of September 25, 2016. Note is again made of T2 hyperintense, T1 hypointense fluid with mass effect upon the thecal sac which is similar in signal intensity to CSF. This involves the lower thoracic spine as well as the majority of the lumbar spine. This was shown on prior MRI of September 25, 2016. This may represent subdural fluid although the exact compartment is difficult to define on this exam. IMPRESSION: Redemonstration of multiple foci of intracanalicular hemorrhage within the lumbosacral canal. This hemorrhage may be subdural or subarachnoid in location. Mild increase in amount of suspected blood within the posterior lower lumbar and sacral canal with moderate increase in mass effect upon the posterior aspect of the cauda equina. Otherwise, mass effect upon the thecal sac is similar to prior study. Electronically signed by: González Huggins M.D. 10/20/2016 3:13 PM Current Hospital Diet Patient's current hospital diet: Regular Diet Discharge Diet Recommended Diet: Regular Diet (but made NPO prior to transfer) Procedures Procedures Performed: Insertion Of Inferior Vena Cava Filter, Right Femoral Approach, Ultrasound Needle Localization Of Right Femoral Vein, Fluoroscopy for Positioning Pending Studies Studies pending at discharge: no Medical Emergencies . Who to Call and When: Medical Emergencies: If at any time you feel your situation is an emergency, please call 911 immediately. . Non-Emergent Contact Non-Emergency issues call your: Primary Care Provider, Surgeon . . "Provider Documentation" section prepared by Susan Cantu. VTE Core Measure Inpt VTE Proph given/why not?: Enoxaparin (Lovenox)SQ
--- NOTE | 2016-10-20 17:08 | Discharge Summary ---
Discharge Summary Admission Date: Oct 13, 2016 at 14:14 Discharge Date: Oct 20, 2016 Discharge Disposition: Acute care facility Principal Diagnosis: Subdural vs subarachnoid lumbosacral hemorrhage w/ mass effect cauda equina Problems/Secondary Diagnoses: Bilateral pulmonary emboli Bilateral lower extremity DVT Ovarian cancer with abdominal carcinomatosis. S/p Placement of IVC filter Paroxysmal atrial fibrillation-no recurrence Sinus tachycardia-resolved Pulmonary hypertension-moderate to severe Opioid-induced constipation Indwelling Franco/Bladder dysfunction Upper left back pain Immunizations: Have You Had Influenza Vaccine: Yes Influenza Vaccine Date: Dec 15, 2010 History of Tetanus Vaccine?: Unknown History of Pneumococcal: Yes Pneumococcal Date: Dec 15, 2010 History of Hepatitis B Vaccine: No Procedures: IVC filter placement ECHO: * -- Conclusions -- * 1. Normal left ventricular size with hyperdynamic systolic function. EF 70-75% . No regional wall motion abnormalities visualized. Mild concentric left ventricular hypertrophy. * 2. The right ventricle is normal in size and function. * 3. There is moderate to severe tricuspid regurgitation. * 4. Moderate to severe pulmonary hypertension suggested; Estimated RVSP 59 mmHg. * 5. Limited 2-D echo with spectral and color Doppler. * 6. Compared to prior study on 09/26/2016, estimated RVSP is now moderately to severely elevated and there is now moderate to severe tricuspid regurgitation. CT ANGIOGRAM OF THE CHEST CLINICAL HISTORY: Atypical chest pain. Possible pulmonary embolism. COMPARISON STUDY: Chest x-ray dated 10/13/2016 TECHNIQUE: Following the IV administration of 77 mL of Optiray-320, CT angiogram of the thorax was performed from the thoracic inlet to the lung bases utilizing the pulmonary embolus protocol. Images are reviewed in the axial, sagittal, and coronal planes. IV contrast was administered without complication. MIP imaging was performed. CT DOSE: 264.62 mGy.cm FINDINGS: There is a multinodular thyroid gland with nodules measuring up to 16 mm in diameter. No pathologically enlarged axillary mediastinal or hilar lymph nodes were visualized. There was no evidence of thoracic aortic dilatation. There are moderate to large bilateral pulmonary artery filling defects involving both upper lobes and both lower lobes., There are right lower lobe airspace opacities, consistent with a pneumonia or pulmonary infarct. There are also left upper lobe airspace opacities likely secondary to atelectasis or infarct. There is a trace right pleural effusion. There are postsurgical changes present within the spine. IMPRESSION: 1. Moderate to large bilateral pulmonary filling defects consistent with acute pulmonary embolism. 2. Bilateral airspace opacities, possibly secondary to pulmonary infarction 3. Trace right pleural effusion 4. Multinodular thyroid gland Electronically signed by: Lui To M.D. 10/13/2016 12:58 PM ULTRASOUND VENOUS DOPPLER LWR JUSTIN RESTREPO CLINICAL HISTORY: Ovarian carcinoma. Pulmonary embolism. COMPARISON STUDY: No previous studies for comparison. FINDINGS: On the right, thrombus is visualized within the superficial femoral vein, popliteal vein, posterior tibial vein, peroneal veins. On the left, thrombus is seen within the posterior tibial and peroneal veins. There is prominent pulsatility within the venous waveforms, suggesting elevated right heart pressures. IMPRESSION: Bilateral lower extremity DVT. MRI OF THE THORACIC SPINE WITHOUT CONTRAST CLINICAL HISTORY: Radiculopathy. Recent evacuation of intracanalicular hemorrhage. COMPARISON: MRI of the thoracic spine September 25, 2016. TECHNIQUE: Utilizing a 1.5 Fátima magnet and dedicated coil, multiplanar, multiecho imaging of the thoracic spine was performed without IV contrast. FINDINGS: Alignment of the thoracic spine is anatomic. Vertebral body heights are maintained. A T1 and T2 hyperintense lesion within the left posterior aspect of the T5 vertebral body extending into the posterior elements is unchanged. This favors an atypical hemangioma. Interval note is made of a right pleural effusion. Right lower lung airspace opacity is depicted on recent chest CT. There are post surgical findings consistent with an interval posterior decompression extending from the T9-T11 levels. Overall, the amount of intracanalicular hemorrhage within the thoracic canal has significantly diminished since exam of September 25, 2016. There is no operative bed fluid collection. Note is made of persistent subtle signal abnormality posterior to the thoracic cord extending from the T1-T8 levels. There is mild mass effect upon the cord. This fluid is nearly isointense to CSF with areas of intermediate signal intensity. This suspected hemorrhage may be subdural in location although the exact compartment is difficult to define on this study. Thoracic cord signal has significantly improved and is now near normal. IMPRESSION: Status post interval lower thoracic spine posterior decompression. Overall, significant decrease in the amount of intracanalicular hemorrhage within the thoracic canal since MRI of September 25, 2016. Persistent signal abnormality posterior to the thoracic cord extending from approximately the T1-T8 levels with mild mass effect upon the cord. This suggests residual hemorrhage. Exact compartment is difficult to define on this exam although this may be subdural in location. Significant interval improvement in mass effect upon the thoracic cord with near complete resolution of thoracic cord edema. Electronically signed by: González Huggins M.D. 10/20/2016 3:05 PM MRI OF THE LUMBAR SPINE WITHOUT CONTRAST CLINICAL HISTORY: Evaluate for intradural hematoma. Recent evacuation of intraventricular hemorrhage. COMPARISON STUDY: MRI of the lumbar spine September 25, 2016. TECHNIQUE: Utilizing a 1.5 Fátima magnet and dedicated coil, multiplanar, multiecho imaging of the lumbar spine was performed without IV contrast. FINDINGS: The thoracic spine MRI will be reported separately. For purposes of numbering on this exam, the L5-S1 disc space is assigned to axial image 27 of 30. Numerous T1 and T2 hyperintense lesions within the lumbar spine suggest hemangiomas. Note is made of partially visualized cystic masses within the pelvis as well as cystic implants within the right aspect of the abdomen. These were shown on prior abdominal CT. These are suboptimal assessed on this exam. Mild multilevel degenerative changes are present. The conus terminates at the L1-L2 level. Layering blood products within the sacral canal have slightly increased since exam of September 25, 2016. There is mild mass effect upon the inferior thecal sac. Intermediate signal intensity material within the left aspect of the canal, possibly within the thecal sac is again noted. This is similar to prior exam of September 25, 2016. Note is again made of T2 hyperintense, T1 hypointense fluid with mass effect upon the thecal sac which is similar in signal intensity to CSF. This involves the lower thoracic spine as well as the majority of the lumbar spine. This was shown on prior MRI of September 25, 2016. This may represent subdural fluid although the exact compartment is difficult to define on this exam. IMPRESSION: Redemonstration of multiple foci of intracanalicular hemorrhage within the lumbosacral canal. This hemorrhage may be subdural or subarachnoid in location. Mild increase in amount of suspected blood within the posterior lower lumbar and sacral canal with moderate increase in mass effect upon the posterior aspect of the cauda equina. Otherwise, mass effect upon the thecal sac is similar to prior study. Electronically signed by: González Huggins M.D. 10/20/2016 3:13 PM Consultations: Hematology/Oncology Vascular Surgery General Surgery Urology Medication Reconciliation New Medications: Gabapentin (Gabapentin) 300 Mg Cap 300 MG PO BID for 30 Days, CAP Oxycodone HCl (Oxycodone HCl) 5 Mg Tab 10 MG PO Q4 PRN for Pain for 3 Days, TAB Pantoprazole (Pantoprazole Sodium) 40 Mg Tab 40 MG PO QAM for 30 Days, TAB Continued Medications: Bisacodyl (Dulcolax) 10 Mg Sup 1 SUPP ID DAILY PER NEUROGENIC BOWEL PROGRAM Calcium Carbonate-Vitamin D (Oscal 500/200 D-3) 1 Tab Tab 1 TAB PO DAILY WITH BREAKFAST. Cyclobenzaprine Hcl (Flexeril) 10 Mg Tab 10 MG PO Q8 PRN for Muscle Spasms, #21 TAB Docusate Sodium (Colace) 100 Mg Cap 1 CAP PO BID for 30 Days, #60 CAP Lidocaine (Lidocaine) 1 Patch Tdsy 1 PATCH TOP DAILY APPLY TO EITHER SIDE OF LOWER SPINE. Metoprolol Tartrate (Lopressor) (Lopressor) 50 Mg Tab 50 MG PO BID, TAB Oseltamivir (Tamiflu) 75 Mg Cap 75 MG PO DAILY X7 DAYS STARTED 10/12/16. STOP 10/19/16 Polyethylene Glycol 3350 (Miralax) 1 Pow Pow 17 GM PO DAILY, #255 GM Sennosides-Docusate Sodium (Senna-S) 1 Tab Tab 1 TAB PO BID Discontinued Medications: Hydrocodone/Acetaminophen (Darwin 10/325 Tab) 1 Tab Tab 1 TAB PO Q4 PRN for Pain MAX 3GM OR 9 TABS TOTAL COMBINED TYLENOL / 24 HR (TIME CRITICAL : GIVE W/I 30 MIN OF MAR TIME) Oxycodone Immediate Rel Tab (Roxicodone Ir) 5 Mg Tab 5 MG PO Q2H PRN for Breakthrough Pain, TAB Discharge Exam HPI on day of transfer: Voiding: franco catheter in place Pt has developed new right lower back pain radiating to bilateral anterior thighs and worsening left leg weakness that she thinks started sometime last night. She has continued numbness in her feet L>R and is not sure if it's worse than previous. Dr. Zhang of Heme/Onc contacted me about this right away and I also discussed with Dr. Frank (our Ortho [facility]) by phone who recommended MRI T and L spine and then contacting pt's established NS at [facility] after testing completed. Discussed with daughter and pt in depth. Otherwise, no CP or SOB. She was still able to ambulate to the bathroom this morning but with worsened weakness in left leg. ROS: Constitutional: No fever Respiratory: No shortness of breath Cardiovascular: No chest pain, no further tachycardia or palpitations Abdomen: No constipation Musculoskeletal: + problem reported (rt flank pain radiating to anterior thighs as per HPI), persistent right upper back pain but improved since starting gabapentin Neurologic: + numbness/tingling, + weakness Physical Exam General Appearance: WD/WN, no apparent distress Eyes: normal inspection, sclerae normal ENT: hearing grossly normal Respiratory/Chest: lungs clear, normal breath sounds, no respiratory distress, no accessory muscle use Cardiovascular: regular rate, rhythm, no edema, no gallop, no murmur Abdomen: normal bowel sounds, soft, + tenderness (mild diffuse without guarding or rebound) Extremities: no calf tenderness Neurologic/Psychiatric: alert, oriented x 3, + depressed affect, + pertinent finding (5/5 strength in UEs throughout, 3/5 in left hip flexor/knee flexion and extension but 5/5 in left plantar and dorsiflexion, 5/5 in RLE;sensation intact throughout upper and lower extremities to light touch except decreased in entire left foot compared to right foot and actually less in left lateral leg than in left foot, slightly inconsistent on exam; DTRs unable to ellicit in upper or lower extremities except 1+ in biceps bilat) Skin: normal color, warm/dry, no rash Hospital Course This pt is a 76-year-old female here with bilateral pulmonary emboli, bilateral LE DVTs, recent spinal surgery for spontaneous epidural hematoma, and ovarian cancer with abdominal carcinomatosis. Pulmonary embolism Bilateral, Bilateral DVTs : -was on heparin drip and case d/w Neurosurgeon Dr. Mead at [facility] (by Dr. Casey/Oncology) who agreed to treat PE outweighs risk of bleeding from recent spine surgery -consult hematology/oncology appreciated-plans for Lovenox care home in setting of malignancy with DVT/PE - there was discussion about needing an A-port, we can coordinate this with hematology/oncology and perhaps temporary cease the Lovenox when she is stable for surgery --> Consult Gen Surgery appreciated, probably will be more like next week -continue Lovenox 1mg/kg q12 but will hold if new bleeding found on MRI today -Oncology and Vascular Surgery recommending placement of IVC filter given significant right heart strain and large clot burden in legs to prevent further PEs--> pt in agreement if her primary Oncology in [facility]--> he was in agreement--> IVC filter placed 10/17/15 Lovenox discontinued when new neurological symptoms arose and MRI confirmed worsening hemorrhage with mass effect on cauda equina Was given Protamine 30mg IV x 1 on 10/20/16 Paroxysmal atrial fibrillation, Sinus tachycardia secondary to large PEs, Pulmonary hypertension-she is in sinus rhythm by EKG an on tele. Tachycardia now resolved. ECHO with evidence of right heart strain from PEs ECHO: 1. Normal left ventricular size with hyperdynamic systolic function. EF 70-75%. No regional wall motion abnormalities visualized. Mild concentric left ventricular hypertrophy. * 2. The right ventricle is normal in size and function. * 3. There is moderate to severe tricuspid regurgitation. * 4. Moderate to severe pulmonary hypertension suggested; Estimated RVSP 59 mmHg. * 5. Limited 2-D echo with spectral and color Doppler. * 6. Compared to prior study on 09/26/2016, estimated RVSP is now moderately to severely elevated and there is now moderate to severe tricuspid regurgitation. Opioid -induced constipation-improved -we will maintain all of her bowel regimen from home -MiraLax as needed Indwelling Franco/Bladder dysfunction since back surgery/Subdural hematoma -consult Urology appreciated-plan is to maintain Franco and see them in office for further testing if fails voiding trial in 7 days -f/u as outpatient Ovarian CA-Oncology following -plans to start chemo after port placed -Her Oncologist at [place] sent a chemo regimen to Onco here and will f/u as outpt after discharge H/O Subdural vs ?Epidural large hematoma, s/p decompression surgery on 09/29/[address] Mead at [facility], back pain, residual neuro deficits in feet with numbness and weakness- on 10/20/16 with worsening weakness LLE and right flank pain with radiation to anterior thighs bilat Upper left back pain is her most significant complaint that started after surgery and before PEs, seems like neuropathic pain possibly just post-op from inflammation improved on gabapentin however now with new symptoms as above -STAT MRI thoracic and lumbar spine to assess for rebleed on anticoagulation--> shows worsening blood products in lumbosacral spine subdural vs subarachnoid with moderate increase in mass effect on cauda equina -contacted NS Dr. Wilson at [facility] and will transfer there in case of need for further decompression -gave Protamine to reverse Lovenox -d/c Lovenox The patient is a full code. DIspo-transfer to [facility] Neurosurgery service today Total Time Spent: Greater than 30 minutes This includes examination of the patient, discharge planning, medication reconciliation, and communication with other providers. Discharge Instructions Please refer to the electronic Patient Visit Report (Discharge Instructions) for additional information. Additional Copies To Adelso Ruiz M.D.
[2016-10-20 17:14] VITALS: BP 138/78; PULSE 94; TEMP 36.4; O2SAT 95
[2016-10-20] MEDS ORDERED: HYDROmorphone INJ 0.5 MG/0.5 ML SYR IV PRN (19:30)
[2016-11-08] MEDS ORDERED: LVNIS60 SQ (12:11)
[2016-11-08] MEDS ORDERED: ONDA-63 PO (12:11)
== END 2016-10-20 21:54 | disposition short-term general hospital (02) | DRG 252 ==
LOC: ENRESERVTM → ENRESERVDT → EDBD 09:26 → C.EDB 09:27 → C.2T 14:14 → C.MS4W 10-19 16:50
PROVIDERS: ADMIT Internal Medicine; ATTEND Family Medicine
PROC: 06H03DZ Insertion of Intraluminal Device into Inferior Vena Cava, Percutaneous Approach (ICD-10-PCS; principal; 2016-10-17 12:15)
DX: I82.403 Acute embolism and thrombosis of unspecified deep veins of lower extremity, bilateral (principal); I26.99 Other pulmonary embolism without acute cor pulmonale; C78.6 Secondary malignant neoplasm of retroperitoneum and peritoneum; C56.9 Malignant neoplasm of unspecified ovary; I48.0 Paroxysmal atrial fibrillation; K59.00 Constipation, unspecified; Z96.652 Presence of left artificial knee joint; I27.2 Other secondary pulmonary hypertension; R33.9 Retention of urine, unspecified; T40.2X5A Adverse effect of other opioids, initial encounter

== ENCOUNTER → 2016-11-02 | Outpatient (CLI) | payer BC, OTHER ==
[~2016-11-02] MED LIST changes: -AZTREONAM IV; +BISA10SU3 PR; +CALC200T PO; +CYCL10TA6 PO; +DOCU-94 PO; -IBUP-103 PO; +LDDP5 TOP; +LVNIS60 SQ; +METO50TA16 PO; -METRONIDAZOLE IV; +NRN300 PO; +ONDA-63 PO; -ONDA4TAB10 SL; +OSEL75CA12 PO; +POLY335019 PO; +PRT40 PO; +RXC5 PO; +SENN-104 PO; -VANCOMYCIN IV; -[UNRECOGNIZED DRUG - OTHER] IV
== END | disposition home or self-care (01) ==
LOC: C.LABPVFM 10:43
PROVIDERS: ATTEND Internal Medicine Hematology & Oncology
DX: C56.9 Malignant neoplasm of unspecified ovary (principal)

== ENCOUNTER → 2016-11-23 | Outpatient (CLI) | payer BC ==
[~2016-11-23] MED LIST changes: -BISA10SU3 PR; -CYCL10TA6 PO; -LDDP5 TOP; -OSEL75CA12 PO; -POLY335019 PO; -RXC5 PO; -SENN-104 PO
[2016-11-23 12:51] LABS: BASO % 0.2 %; BASO ABS # 0.01 K/uL (0-0.2); COMPLETE YES; EOS % 0.7 %; HEMATOCRIT 36.1 % (37-47); IG% 0.2 %; LYMPH % 31.9 %; LYMPH ABS # 1.44 K/uL (1.2-3.4); MEAN CELL VOLUME 88.3 fL (80-100); MEAN CORPUSCULAR HEMOGLOBIN 28.1 pg (25-34); MEAN CORPUSCULAR HGB CONC 31.9 g/dl (32-36); MEAN PLATELET VOLUME 10.3 fL (7.4-10.4); MONO % 5.1 %; NEUT % 61.9 %; PLATELET COUNT 300 K/uL (130-400); RED BLOOD COUNT 4.09 M/uL (4.2-5.4); WHITE BLOOD COUNT 4.51 K/uL (4.8-10.8)
[2016-11-23 13:30] LABS: ALT/SGPT 66 U/L (12-78); BLOOD UREA NITROGEN 13 mg/dl (7-18); BUN/CREATININE RATIO 18.2 (10-20); CALCIUM 9.1 mg/dl (8.5-10.1); CARBON DIOXIDE 22 mmol/L (21-32); CHLORIDE 106 mmol/L (98-107); CREATININE 0.72 mg/dl (0.60-1.20); GLUCOSE 113 mg/dl (70-99); SODIUM 141 mmol/L (136-145)
[2016-11-23 13:32] LABS: ALKALINE PHOSPHATASE 103 U/L (45-117); AST/SGOT 33 U/L (15-37)
== END | disposition home or self-care (01) ==
LOC: C.LABSPEC 08:18
PROVIDERS: ATTEND Internal Medicine Hematology & Oncology
DX: C56.9 Malignant neoplasm of unspecified ovary (principal)

== ENCOUNTER → 2016-11-30 | Outpatient (CLI) | payer BC ==
[2016-11-30 14:32] LABS: BASO % 0.2 %; BASO ABS # 0.01 K/uL (0-0.2); COMPLETE YES; EOS % 0.2 %; HEMATOCRIT 37.4 % (37-47); IG% 0.2 %; LYMPH % 31.9 %; MEAN CORPUSCULAR HEMOGLOBIN 28.7 pg (25-34); MEAN CORPUSCULAR HGB CONC 31.6 g/dl (32-36); MEAN PLATELET VOLUME 9.7 fL (7.4-10.4); MONO % 14.3 %; NEUT % 53.2 %; PLATELET COUNT 288 K/uL (130-400); RED BLOOD COUNT 4.11 M/uL (4.2-5.4); WHITE BLOOD COUNT 5.65 K/uL (4.8-10.8)
[2016-11-30 15:02] LABS: ALB/GLOB RATIO 0.9 (0.9-2); ALKALINE PHOSPHATASE 109 U/L (45-117); ALT/SGPT 45 U/L (12-78); AST/SGOT 23 U/L (15-37); BLOOD UREA NITROGEN 13 mg/dl (7-18); BUN/CREATININE RATIO 18.4 (10-20); CALCIUM 9.2 mg/dl (8.5-10.1); CARBON DIOXIDE 24 mmol/L (21-32); CHLORIDE 108 mmol/L (98-107); GLUCOSE 101 mg/dl (70-99); SODIUM 142 mmol/L (136-145)
== END | disposition home or self-care (01) ==
LOC: C.LABSPEC 14:05
PROVIDERS: ATTEND Internal Medicine Hematology & Oncology
DX: C56.9 Malignant neoplasm of unspecified ovary (principal)

== ENCOUNTER → 2016-12-04 | Outpatient (CLI) | payer BC | END | disposition home or self-care (01) | LOC: C.LABSPEC 17:37 | PROVIDERS: ATTEND Nurse Practitioner Family | DX: R33.9 Retention of urine, unspecified (principal) ==

== ENCOUNTER → 2016-12-07 | Outpatient (CLI) | payer BC ==
[2016-12-07 12:10] LABS: BASO % 0.2 %; BASO ABS # 0.01 K/uL (0-0.2); COMPLETE YES; EOS % 0.7 %; IG% 0.4 %; LYMPH % 33.6 %; LYMPH ABS # 1.81 K/uL (1.2-3.4); MEAN CELL VOLUME 89.4 fL (80-100); MEAN CORPUSCULAR HEMOGLOBIN 28.5 pg (25-34); MEAN CORPUSCULAR HGB CONC 31.9 g/dl (32-36); MEAN PLATELET VOLUME 9.9 fL (7.4-10.4); MONO % 14.7 %; NEUT % 50.4 %; PLATELET COUNT 263 K/uL (130-400); RED BLOOD COUNT 4.14 M/uL (4.2-5.4); WHITE BLOOD COUNT 5.38 K/uL (4.8-10.8)
[2016-12-07 12:26] LABS: ALB/GLOB RATIO 0.8 (0.9-2); ALKALINE PHOSPHATASE 103 U/L (45-117); ALT/SGPT 36 U/L (12-78); AST/SGOT 28 U/L (15-37); BLOOD UREA NITROGEN 13 mg/dl (7-18); BUN/CREATININE RATIO 18.1 (10-20); CALCIUM 9.2 mg/dl (8.5-10.1); CARBON DIOXIDE 25 mmol/L (21-32); CHLORIDE 102 mmol/L (98-107); CREATININE 0.69 mg/dl (0.60-1.20); GLUCOSE 98 mg/dl (70-99); SODIUM 136 mmol/L (136-145)
== END | disposition home or self-care (01) ==
LOC: C.LABSPEC 12:39
PROVIDERS: ATTEND Internal Medicine Hematology & Oncology
DX: C56.9 Malignant neoplasm of unspecified ovary (principal)

== ENCOUNTER → 2016-12-28 | Outpatient (CLI) | payer BC ==
[2016-12-28 12:22] LABS: BASO % 0.3 %; BASO ABS # 0.01 K/uL (0-0.2); COMPLETE YES; HEMATOCRIT 35.6 % (37-47); IG% 0.3 %; LYMPH % 47.2 %; LYMPH ABS # 1.45 K/uL (1.2-3.4); MEAN CELL VOLUME 90.6 fL (80-100); MEAN CORPUSCULAR HEMOGLOBIN 29.3 pg (25-34); MEAN CORPUSCULAR HGB CONC 32.3 g/dl (32-36); MEAN PLATELET VOLUME 9.1 fL (7.4-10.4); MONO % 11.4 %; NEUT % 40.8 %; PLATELET COUNT 172 K/uL (130-400); RED BLOOD COUNT 3.93 M/uL (4.2-5.4); WHITE BLOOD COUNT 3.07 K/uL (4.8-10.8)
[2016-12-28 12:39] LABS: ALT/SGPT 26 U/L (12-78); BLOOD UREA NITROGEN 12 mg/dl (7-18); CALCIUM 9.2 mg/dl (8.5-10.1); CARBON DIOXIDE 24 mmol/L (21-32); CHLORIDE 108 mmol/L (98-107); CREATININE 0.69 mg/dl (0.60-1.20); GLUCOSE 78 mg/dl (70-99); POTASSIUM 4.1 mmol/L (3.5-5.1); SODIUM 143 mmol/L (136-145)
[2016-12-28 12:41] LABS: ALKALINE PHOSPHATASE 89 U/L (45-117); AST/SGOT 23 U/L (15-37)
== END | disposition home or self-care (01) ==
LOC: C.LABSPEC 12:26
PROVIDERS: ATTEND Internal Medicine Hematology & Oncology
DX: C56.9 Malignant neoplasm of unspecified ovary (principal)

== ENCOUNTER → 2017-01-16 | Outpatient (CLI) | payer BC | END | disposition home or self-care (01) | LOC: C.LABSPEC 17:52 | PROVIDERS: ATTEND Urology | DX: R33.9 Retention of urine, unspecified (principal); R32 Unspecified urinary incontinence; N39.0 Urinary tract infection, site not specified ==

== ENCOUNTER → 2017-01-18 | Outpatient (CLI) | payer BC ==
[2017-01-18 12:43] LABS: BASO % 0.1 %; BASO ABS # 0.01 K/uL (0-0.2); COMPLETE YES; HEMATOCRIT 34.5 % (37-47); IG% 0.5 %; LYMPH % 27.8 %; LYMPH ABS # 2.12 K/uL (1.2-3.4); MEAN CELL VOLUME 88.5 fL (80-100); MEAN CORPUSCULAR HEMOGLOBIN 29.2 pg (25-34); MEAN PLATELET VOLUME 8.9 fL (7.4-10.4); MONO % 12.6 %; PLATELET COUNT 188 K/uL (130-400); WHITE BLOOD COUNT 7.62 K/uL (4.8-10.8)
[2017-01-18 13:16] LABS: ALT/SGPT 28 U/L (12-78); BLOOD UREA NITROGEN 14 mg/dl (7-18); BUN/CREATININE RATIO 15.7 (10-20); CALCIUM 9.7 mg/dl (8.5-10.1); CARBON DIOXIDE 23 mmol/L (21-32); CHLORIDE 104 mmol/L (98-107); GLUCOSE 95 mg/dl (70-99); SODIUM 140 mmol/L (136-145)
[2017-01-18 13:19] LABS: ALB/GLOB RATIO 0.7 (0.9-2); ALKALINE PHOSPHATASE 98 U/L (45-117); AST/SGOT 19 U/L (15-37)
== END | disposition home or self-care (01) ==
LOC: C.LABSPEC 09:00
PROVIDERS: ATTEND Internal Medicine Hematology & Oncology
DX: C56.9 Malignant neoplasm of unspecified ovary (principal)

== ENCOUNTER → 2017-02-08 | Outpatient (CLI) | payer BC ==
[2017-02-08 12:18] LABS: BASO % 0.3 %; BASO ABS # 0.01 K/uL (0-0.2); COMPLETE YES; HEMATOCRIT 34.6 % (37-47); IG% 0.3 %; LYMPH % 41.1 %; LYMPH ABS # 1.57 K/uL (1.2-3.4); MEAN CELL VOLUME 94.3 fL (80-100); MEAN CORPUSCULAR HGB CONC 31.8 g/dl (32-36); MEAN PLATELET VOLUME 9.4 fL (7.4-10.4); MONO % 14.7 %; NEUT % 43.6 %; PLATELET COUNT 146 K/uL (130-400); RED BLOOD COUNT 3.67 M/uL (4.2-5.4); WHITE BLOOD COUNT 3.82 K/uL (4.8-10.8)
[2017-02-08 12:43] LABS: ALKALINE PHOSPHATASE 79 U/L (45-117); ALT/SGPT 30 U/L (12-78); AST/SGOT 24 U/L (15-37); BLOOD UREA NITROGEN 15 mg/dl (7-18); BUN/CREATININE RATIO 18.8 (10-20); CARBON DIOXIDE 27 mmol/L (21-32); CHLORIDE 105 mmol/L (98-107); CREATININE 0.77 mg/dl (0.60-1.20); GLUCOSE 92 mg/dl (70-99); POTASSIUM 4.1 mmol/L (3.5-5.1); SODIUM 140 mmol/L (136-145)
[2017-02-08 12:50] LABS: ALB/GLOB RATIO 0.9 (0.9-2)
[2017-02-08 13:34] LABS: CALCIUM 8.9 mg/dl (8.5-10.1)
== END | disposition home or self-care (01) ==
LOC: C.LABSPEC 16:57
PROVIDERS: ATTEND Internal Medicine Hematology & Oncology
DX: C56.9 Malignant neoplasm of unspecified ovary (principal)

== ENCOUNTER → 2017-03-01 | Outpatient (CLI) | payer BC ==
[2017-03-01 12:48] LABS: BASO % 0.2 %; BASO ABS # 0.01 K/uL (0-0.2); COMPLETE YES; HEMATOCRIT 34.6 % (37-47); IG% 0.5 %; LYMPH % 32.1 %; LYMPH ABS # 1.78 K/uL (1.2-3.4); MEAN CELL VOLUME 95.8 fL (80-100); MEAN CORPUSCULAR HEMOGLOBIN 30.5 pg (25-34); MEAN CORPUSCULAR HGB CONC 31.8 g/dl (32-36); MEAN PLATELET VOLUME 9.1 fL (7.4-10.4); MONO % 16.4 %; NEUT % 50.8 %; PLATELET COUNT 228 K/uL (130-400); RED BLOOD COUNT 3.61 M/uL (4.2-5.4); WHITE BLOOD COUNT 5.55 K/uL (4.8-10.8)
[2017-03-01 13:33] LABS: ALT/SGPT 27 U/L (12-78); AST/SGOT 18 U/L (15-37); BLOOD UREA NITROGEN 15 mg/dl (7-18); CARBON DIOXIDE 26 mmol/L (21-32); CHLORIDE 108 mmol/L (98-107); CREATININE 0.83 mg/dl (0.60-1.20); GLUCOSE 88 mg/dl (70-99); POTASSIUM 3.9 mmol/L (3.5-5.1); SODIUM 143 mmol/L (136-145)
[2017-03-01 13:35] LABS: ALB/GLOB RATIO 0.9 (0.9-2); ALKALINE PHOSPHATASE 76 U/L (45-117)
== END | disposition home or self-care (01) ==
LOC: C.LABSPEC 15:17
PROVIDERS: ATTEND Internal Medicine Hematology & Oncology
DX: C56.9 Malignant neoplasm of unspecified ovary (principal)

== ENCOUNTER → 2017-03-18 | Outpatient (CLI) | payer BC ==
[2017-03-18 12:19] LABS: BASO % 0.3 %; BASO ABS # 0.01 K/uL (0-0.2); COMPLETE YES; HEMATOCRIT 31.4 % (37-47); LYMPH % 27.5 %; MEAN CORPUSCULAR HEMOGLOBIN 30.3 pg (25-34); MEAN CORPUSCULAR HGB CONC 31.5 g/dl (32-36); MEAN PLATELET VOLUME 9.9 fL (7.4-10.4); MONO % 12.6 %; NEUT % 59.6 %; PLATELET COUNT 145 K/uL (130-400); RED BLOOD COUNT 3.27 M/uL (4.2-5.4); WHITE BLOOD COUNT 3.64 K/uL (4.8-10.8)
[2017-03-18 12:29] LABS: ALT/SGPT 28 U/L (12-78); AST/SGOT 18 U/L (15-37); BLOOD UREA NITROGEN 13 mg/dl (7-18); BUN/CREATININE RATIO 15.4 (10-20); CALCIUM 8.9 mg/dl (8.5-10.1); CARBON DIOXIDE 30 mmol/L (21-32); CHLORIDE 105 mmol/L (98-107); CREATININE 0.87 mg/dl (0.60-1.20); GLUCOSE 80 mg/dl (70-99); POTASSIUM 3.9 mmol/L (3.5-5.1); SODIUM 142 mmol/L (136-145)
[2017-03-18 12:32] LABS: ALB/GLOB RATIO 0.7 (0.9-2); ALKALINE PHOSPHATASE 77 U/L (45-117)
== END | disposition home or self-care (01) ==
LOC: C.LABPVFM 09:23
PROVIDERS: ATTEND Internal Medicine Hematology & Oncology
DX: C56.9 Malignant neoplasm of unspecified ovary (principal)

== ENCOUNTER → 2017-04-04 | Outpatient (CLI) | payer BC ==
[~2017-04-04] MED LIST changes: +OPTIRAY 320 IV PRN
--- NOTE | 2017-04-04 10:38 | DIAGNOSTIC IMAGING REPORT ---
CT ABD/PELVIS IV AND ORAL CONT CLINICAL HISTORY: Metastatic ovarian carcinoma COMPARISON STUDY: 09/25/2016 TECHNIQUE: Following the IV administration of 118 mL of Optiray-320, CT scan of the abdomen and pelvis was performed from the lung bases to the proximal femurs. Images are reviewed in the axial, sagittal, and coronal planes. IV contrast was administered without complication. CT DOSE: 532.78 mGy.cm FINDINGS: Lower chest: There is focal pleural thickening at the left lung base. There is area of presumed nodular scarring/atelectasisr at the right lung base. There is a 4 mm subpleural nodule within the left lower lobe. Chest findings will be described in a CT scan of the chest report Liver: 1 Gallbladder: Unremarkable. Spleen: Normal in size and attenuation. Pancreas: Unremarkable. Adrenal glands: Unremarkable. Kidneys: No solid renal masses are visualized. There is mild prominence of each renal pelvis. Bowel: There are no transition zones indicate bowel obstruction. There is no evidence of acute diverticulitis. There is no evidence of acute appendicitis. Peritoneum: There is no intraperitoneal free air or abdominal ascites. There is interval decrease in the size of the multiple peritoneal implants. The largest currently measures 1 cm. Vasculature: The abdominal aorta is normal in course and caliber. There is indwelling IVC filter. Adenopathy: None. Pelvic viscera: There is slight interval decrease in the size of the pelvic mass. The cystic component currently measures 55 mm compared to a prior measurement of 65 mm. Skeletal structures: No destructive osseous lesions are seen. There are stable small S1 sclerotic lesions. These may represent bone islands. IMPRESSION: 1. Slight interval decrease in the size of the complex pelvic mass 2. Significant interval decrease in the size of multiple peritoneal implants 3. No evidence of bowel obstruction. No evidence of free air. 4. Mild prominence of each renal pelvis. 5. No acute inflammatory changes Electronically signed by: Lui To M.D. 04/04/2017 10:36 AM Dictated Date/Time: 04/04/2017 10:25 AM
--- NOTE | 2017-04-04 10:46 | DIAGNOSTIC IMAGING REPORT ---
CHEST CT WITH CONTRAST CT DOSE: HISTORY: Ovarian cancer. Metastatic disease. TECHNIQUE: Multiaxial CT images of the chest were performed following the intravenous administration of contrast. COMPARISON: Chest CTA 10/13/2016. FINDINGS: The central airways are patent. No pleural effusions. No pneumothorax. There is a 4 mm subpleural nodule within the left lower lobe in image 189. Mild nodular thickening along the left major fissure. This is likely benign. A few tiny tree-in-bud nodular densities within the right upper lobe consistent with mild inflammatory/infectious change. Stable 3 mm nodule within the right middle lobe on image 180. Small focal areas of consolidation within the base of the right lower lobe have significantly improved. This may represent residual scar or resolving pulmonary infarcts. There are 2, 4 mm indeterminate pulmonary nodules within the right lower lobe on images 143 and 147. These remain stable. Posterior decompression seen within the lower thoracic spine. No suspicious lytic or blastic osseous lesions. Small hiatus hernia. There are 2 left thyroid nodules with the largest measuring 1.7 cm. These remain unchanged. Normal caliber thoracic aorta. The majority of the pulmonary emboli seen on the prior study have resolved interval. There are few chronic emboli remaining within the right lower lobe. No mediastinal or hilar lymphadenopathy. IMPRESSION: 1. A few scattered subcentimeter pole nodules as described above. Majority these are stable and are unlikely to represent metastatic disease. However, continued follow up is recommended to ensure stability. 2. Small areas of consolidation within the right lower lobe have significantly improved. This favors scarring/resolving pulmonary infarcts. There are few chronic pulmonary emboli remaining within the right lower lobe. 3. Left thyroid nodules are again noted. 4. A few tiny tree-in-bud nodular densities within the right upper lobe consistent with mild inflammatory/infectious change. Electronically signed by: Jimenez Kelley M.D. 04/04/2017 10:45 AM Dictated Date/Time: 04/04/2017 10:35 AM
== END | disposition home or self-care (01) ==
LOC: C.CTS 09:23
PROVIDERS: ATTEND Obstetrics & Gynecology Gynecologic Oncology
DX: C56.9 Malignant neoplasm of unspecified ovary (principal); C78.00 Secondary malignant neoplasm of unspecified lung

== ENCOUNTER → 2017-04-10 | Outpatient (CLI) | payer BC ==
[~2017-04-10] MED LIST changes: -OPTIRAY 320 IV PRN
--- NOTE | 2017-04-10 10:10 | DIAGNOSTIC IMAGING REPORT ---
CHEST 2 VIEWS ROUTINE CLINICAL HISTORY: C56.9 pneumonia. Dyspnea. Preoperative evaluation. COMPARISON STUDY: 10/13/2016 FINDINGS: The bones soft tissues and hemidiaphragms are normal. The cardiomediastinal silhouette is normal. The lungs are clear. The pulmonary vasculature is normal. IMPRESSION: Negative chest. Electronically signed by: Krunal Covington M.D. 04/10/2017 10:09 AM Dictated Date/Time: 04/10/2017 10:09 AM
[2017-04-10 10:14] LABS: HEMATOCRIT 36.7 % (37-47); MEAN CORPUSCULAR HEMOGLOBIN 31.3 pg (25-34); MEAN CORPUSCULAR HGB CONC 31.3 g/dl (32-36); MEAN PLATELET VOLUME 8.8 fL (7.4-10.4); PLATELET COUNT 273 K/uL (130-400); RED BLOOD COUNT 3.67 M/uL (4.2-5.4)
[2017-04-10 10:42] LABS: ALT/SGPT 31 U/L (12-78); AST/SGOT 22 U/L (15-37); BLOOD UREA NITROGEN 19 mg/dl (7-18); BUN/CREATININE RATIO 19.8 (10-20); CALCIUM 9.5 mg/dl (8.5-10.1); CARBON DIOXIDE 29 mmol/L (21-32); CHLORIDE 107 mmol/L (98-107); CREATININE 0.95 mg/dl (0.60-1.20); GLUCOSE 90 mg/dl (70-99); SODIUM 142 mmol/L (136-145)
[2017-04-10 10:45] LABS: ALKALINE PHOSPHATASE 91 U/L (45-117)
== END | disposition home or self-care (01) ==
LOC: C.CPL 09:30
PROVIDERS: ATTEND Obstetrics & Gynecology Gynecologic Oncology
DX: C56.9 Malignant neoplasm of unspecified ovary (principal); Z01.818 Encounter for other preprocedural examination

== ENCOUNTER → 2017-05-28 | Outpatient (CLI) | payer BC | END | disposition home or self-care (01) | LOC: C.LAB 13:25 | PROVIDERS: ATTEND Nurse Practitioner Family | DX: R35.0 Frequency of micturition (principal); N39.0 Urinary tract infection, site not specified ==

== ENCOUNTER → 2017-06-19 | Outpatient (CLI) | payer BC ==
[2017-06-19 13:01] LABS: BASO % 0.2 %; BASO ABS # 0.01 K/uL (0-0.2); COMPLETE YES; EOS % 0.8 %; IG% 0.2 %; LYMPH % 33.6 %; LYMPH ABS # 1.64 K/uL (1.2-3.4); MEAN CELL VOLUME 94.8 fL (80-100); MEAN CORPUSCULAR HEMOGLOBIN 30.3 pg (25-34); MEAN PLATELET VOLUME 9.5 fL (7.4-10.4); MONO % 10.5 %; NEUT % 54.7 %; PLATELET COUNT 224 K/uL (130-400); RED BLOOD COUNT 4.22 M/uL (4.2-5.4); WHITE BLOOD COUNT 4.88 K/uL (4.8-10.8)
[2017-06-19 13:45] LABS: ALT/SGPT 25 U/L (12-78); BLOOD UREA NITROGEN 17 mg/dl (7-18); CALCIUM 9.6 mg/dl (8.5-10.1); CARBON DIOXIDE 30 mmol/L (21-32); CHLORIDE 107 mmol/L (98-107); CREATININE 0.84 mg/dl (0.60-1.20); GLUCOSE 83 mg/dl (70-99); POTASSIUM 4.4 mmol/L (3.5-5.1); SODIUM 143 mmol/L (136-145)
[2017-06-19 13:48] LABS: ALB/GLOB RATIO 1.1 (0.9-2); ALKALINE PHOSPHATASE 105 U/L (45-117); AST/SGOT 22 U/L (15-37)
== END | disposition home or self-care (01) ==
LOC: C.LABPVFM 09:24
PROVIDERS: ATTEND Internal Medicine Hematology & Oncology
DX: C56.1 Malignant neoplasm of right ovary (principal)

== ENCOUNTER → 2017-11-21 | Outpatient (CLI) | payer BC ==
[2017-11-21 12:57] LABS: BASO % 0.3 %; BASO ABS # 0.02 K/uL (0-0.2); EOS % 0.5 %; EOS ABS # 0.03 K/uL (0-0.5); HEMOGLOBIN 13.6 g/dL (12.0-16.0); IG# 0.01 K/uL (0.00-0.02); MEAN CORPUSCULAR HEMOGLOBIN 30.8 pg (25-34); MEAN CORPUSCULAR HGB CONC 33.2 g/dl (32-36); MONO % 8.7 %; MONO ABS # 0.55 K/uL (0.11-0.59); NEUT % 55.3 %; NEUT ABS # 3.48 K/uL (1.4-6.5); PLATELET COUNT 222 K/uL (130-400); RED CELL DISTRIBUTION WIDTH CV 12.8 % (11.5-14.5); RED CELL DISTRIBUTION WIDTH SD 43.7 fL (36.4-46.3); WHITE BLOOD COUNT 6.29 K/uL (4.8-10.8)
[2017-11-21 13:21] LABS: ALBUMIN 3.6 gm/dl (3.4-5.0); ALT/SGPT 22 U/L (12-78); BLOOD UREA NITROGEN 18 mg/dl (7-18); CARBON DIOXIDE 24 mmol/L (21-32); GLUCOSE 105 mg/dl (70-99); SODIUM 138 mmol/L (136-145)
[2017-11-21 13:24] LABS: ALKALINE PHOSPHATASE 107 U/L (45-117); AST/SGOT 20 U/L (15-37); TOTAL PROTEIN 7.3 gm/dl (6.4-8.2)
== END | disposition home or self-care (01) ==
LOC: C.LABPVFM 10:12
PROVIDERS: ATTEND Internal Medicine Hematology & Oncology
DX: C56.1 Malignant neoplasm of right ovary (principal)

== ENCOUNTER → 2018-01-20 | Outpatient (CLI) | payer BC ==
[2018-01-20 18:00] LABS: BASO % 0.3 %; BASO ABS # 0.02 K/uL (0-0.2); EOS % 0.6 %; EOS ABS # 0.05 K/uL (0-0.5); HEMATOCRIT 43.5 % (37-47); HEMOGLOBIN 14.3 g/dL (12.0-16.0); IG# 0.01 K/uL (0.00-0.02); LYMPH % 29.7 %; LYMPH ABS # 2.29 K/uL (1.2-3.4); MEAN CORPUSCULAR HEMOGLOBIN 30.9 pg (25-34); MEAN CORPUSCULAR HGB CONC 32.9 g/dl (32-36); MEAN PLATELET VOLUME 9.8 fL (7.4-10.4); MONO % 9.3 %; MONO ABS # 0.72 K/uL (0.11-0.59); NEUT ABS # 4.62 K/uL (1.4-6.5); PLATELET COUNT 288 K/uL (130-400); RED CELL DISTRIBUTION WIDTH CV 13.3 % (11.5-14.5); RED CELL DISTRIBUTION WIDTH SD 45.8 fL (36.4-46.3); WHITE BLOOD COUNT 7.71 K/uL (4.8-10.8)
[2018-01-20 18:27] LABS: ALBUMIN 4.1 gm/dl (3.4-5.0); ALT/SGPT 21 U/L (12-78); BLOOD UREA NITROGEN 19 mg/dl (7-18); CALCIUM 9.1 mg/dl (8.5-10.1); CARBON DIOXIDE 29 mmol/L (21-32); CREATININE 0.87 mg/dl (0.60-1.20); GLUCOSE 79 mg/dl (70-99); POTASSIUM 3.8 mmol/L (3.5-5.1); SODIUM 139 mmol/L (136-145)
[2018-01-20 18:29] LABS: ALKALINE PHOSPHATASE 110 U/L (45-117); AST/SGOT 23 U/L (15-37); TOTAL PROTEIN 7.6 gm/dl (6.4-8.2)
== END | disposition home or self-care (01) ==
LOC: C.LABPVFM 12:07
PROVIDERS: ATTEND Internal Medicine Hematology & Oncology
DX: C56.1 Malignant neoplasm of right ovary (principal)

== ENCOUNTER → 2018-02-05 | Outpatient (CLI) | payer BC ==
[~2018-02-05] MED LIST changes: +OPTIRAY 320 IV PRN
--- NOTE | 2018-02-05 15:57 | DIAGNOSTIC IMAGING REPORT ---
CHEST CT WITH CONTRAST CT DOSE: 703.29 mGycm HISTORY: Ovarian cancer. TECHNIQUE: Multiaxial CT images of the chest were performed following the intravenous administration of contrast. A dose lowering technique was utilized adhering to the principles of ALARA. COMPARISON: Chest CT 04/04/2017. FINDINGS: The central airways are patent. No pleural effusions. No pneumothorax. There are again noted a few scattered subcentimeter pole nodules measuring up to 4 mm. These are unchanged compared to the prior study. No new pulmonary nodules identified. Slight improvement in the predominantly linear right basilar densities. This suggests resolving atelectasis/scarring. No suspicious lytic or blastic osseous lesions. No change in the left-sided thyroid nodules. Dominant nodule measures 1.8 x 1.1 cm. No mediastinal or hilar lymphadenopathy. Normal caliber thoracic aorta. Chronic pulmonary emboli within the right lower lobe remain unchanged. No new filling defects within the pulmonary arteries. IMPRESSION: 1. There are few scattered subcentimeter pulmonary nodules which remain stable. No new pulmonary nodules identified. 2. Predominantly linear area of consolidation within the right lower lobe which has improved. This favors resolving scarring/atelectasis. 3. Left thyroid nodules are again noted. 4. Right lower lobe chronic pulmonary emboli, unchanged. 5. Please refer to the same day abdomen and pelvis CT for further evaluation. Electronically signed by: Jimenez Kelley M.D. 02/05/2018 3:56 PM Dictated Date/Time: 02/05/2018 3:48 PM
--- NOTE | 2018-02-05 17:26 | DIAGNOSTIC IMAGING REPORT ---
CT OF THE ABDOMEN AND PELVIS WITH CONTRAST CLINICAL HISTORY: Ovarian cancer. COMPARISON STUDY: CT of the abdomen and pelvis April 04, 2017. TECHNIQUE: Following IV administration of 93 mL of Optiray-320, axial images of the abdomen and pelvis were obtained from the lung bases to the proximal femurs. Images were reviewed in the axial, sagittal, and coronal planes. IV contrast was administered without complication. A dose lowering technique was utilized adhering to the principles of ALARA. Oral contrast was administered. FINDINGS: The chest CT will be reported separately. The liver, spleen, adrenal glands, kidneys and pancreas are unremarkable. There are suspected left-sided parapelvic cyst. Both diaphragms are symmetric. There is no biliary or pancreatic ductal dilatation. Caliber and wall thickness of small and large bowel are normal. The omental implants shown on exam of April 04, 2017 are no longer visualized. The patient is status post apparent interval hysterectomy and oophorectomy. Note is made of a 9 mm nodule located along the left posterior aspect of the bladder adjacent to the sigmoid colon shown on image [id number]. There is also a second additional 9 mm nodule shown on image 328 located posterior to the bladder. Note is also made of a 3.4 x 1.3 cm heterogeneous masslike abnormality along the left lateral aspect of the rectosigmoid junction. A 1.4 cm nodule is noted within the proximal right inguinal canal shown image 376. There is no evidence for a bowel obstruction. No pneumatosis, free air or portal venous gas is present. There is colonic diverticulosis without convincing evidence for acute diverticulitis. There are no suspicious osseous lesions. IMPRESSION: 1. Status post interval apparent hysterectomy and oophorectomy. 3.4 x 1.3 cm mass-like abnormality along the left lateral aspect of the rectosigmoid junction favors a tumor implant. Less likely, this could reflect the left ovary and correlation with surgical history is recommended. Two additional 9 mm nodules located posterior to the bladder also likely reflects tumor implants. Possible tumor implant within the proximal right inguinal canal. 2. No evidence for a bowel obstruction. No upper abdominal adenopathy or implants. Electronically signed by: González Huggins M.D. 02/05/2018 5:24 PM Dictated Date/Time: 02/05/2018 3:51 PM
== END | disposition home or self-care (01) ==
LOC: C.CTS 14:30
PROVIDERS: ATTEND Internal Medicine Hematology & Oncology
DX: C56.1 Malignant neoplasm of right ovary (principal); R91.8 Other nonspecific abnormal finding of lung field; E04.2 Nontoxic multinodular goiter; I26.99 Other pulmonary embolism without acute cor pulmonale

== ENCOUNTER → 2018-02-27 | Day surgery (SDC) | payer BC ==
[2018-02-25 14:53] VITALS: BMI 27.0
[~2018-02-27] VITALS: Ht 162.6 cm; Wt 73.2 kg
[~2018-02-27] MED LIST changes: +ATROPINE SULFATE 0.1 MG/ML 5ML SYR IV PRN; +BACITRACIN 50000 UNIT VIAL ONE; +CEFAZOLIN SOD 1 GM VIAL IV ONE; +CEFAZOLIN SOD 1 GM VIAL ONE; -DOCU-94 PO; +EpHEDrine SULFATE INJ 50 MG/ML AMP IV PRN; +FENTANYL CITRATE INJ 50 MCG/1 ML 2 ML VIAL IV PRN; +FENTANYL CITRATE INJ 50 MCG/1 ML 2 ML VIAL ONE; +FLUMAZENIL 0.1 MG/1 ML 10 ML VIAL IV PRN; +HYDR-5688 PO; +HYDROmorphone INJ 0.5 MG/0.5 ML SYR IV PRN; +IBUPROFEN 600 MG TAB PO PRN; +LABETALOL HCL IV 5 MG/ML 20ML IV PRN; +LACTATED RINGER'S 1000ML 1,000 ML IV SCH; +LIDOCAINE HCL 1% 20 ML VIAL ONE; +LIDOCAINE HCL 2% 2 ML VIAL (20MG/ML) ONE; -LVNIS60 SQ; +MEPERIDINE HCL 25 MG/ML CARP IV PRN; -METO50TA16 PO; +MIDAZOLAM HCL 1 MG/ML 2ML VIAL ONE; +NALOXONE HCL 0.4 MG/1 ML VIAL/CARP IV PRN; +NAPR1TAB9 PO; -NRN300 PO; -ONDA-63 PO; +ONDANSETRON INJ 2 MG/ML 2 ML VIAL IV PRN; +ONDANSETRON INJ 2 MG/ML 2 ML VIAL ONE; -OPTIRAY 320 IV PRN; +PHENYLEPHRINE 100MCG/ML 5ML SYR IV PRN; +PROPOFOL IV EMULSION 10 MG/ML 20 ML VIAL ONE; -PRT40 PO
[2018-02-27 06:33] VITALS: BP 153/100; PULSE 75; TEMP 36.7; O2SAT 98; Ht 162.6 cm; Wt 73.2 kg
--- NOTE | 2018-02-27 07:32 | Discharge Instructions ---
Discharge Instructions Date of Service February 27, 2018. Visit Reason for Visit: Ovarian Cancer Discharge Discharge Diagnosis / Problem: A-port Discharge Goals Goal(s): Therapeutic intervention Activity Recommendations Activity Limitations: as noted below Shower/Bathe: tomorrow Driving or Machine Use: resume 1 day after discharge Anesthesia . Post Anesthesia Instructions: If you have had General Anesthesia or IV Sedation: * Do not drive today. * Resume driving when surgeon permits. * Do not make important decisions or sign legal documents today. * Call surgeon for: 1. Temperature elevations greater than 101 degrees F. 2. Uncontrollable pain. 3. Excessive bleeding. 4. Persistent nausea and vomiting. 5. Medication intolerance (nausea, vomiting or rash). * For nausea and vomiting use only clear liquids such as: tea, soda, bouillon until nausea subsides, then gradually increase diet as tolerated. * If you have any concerns or questions, call your surgeon's office. If physician is unavailable and it is an emergency, call 911 or go to the nearest emergency room. . Instructions / Follow-Up Instructions / Follow-Up Dr. Wade in 1-2 weeks as needed for any questions or concerns It is OK for port to be used Diet Recommendations Recommended Home Diet: no limitations Pending Studies Studies pending at discharge: no Medical Emergencies . Who to Call and When: Medical Emergencies: If at any time you feel your situation is an emergency, please call 911 immediately. . Non-Emergent Contact Non-Emergency issues call your: Surgeon Call Non-Emergent contact if: you have a fever, temperature is above 101.5, your pain is not controlled, wound has increased redness, wound has increased pain . . "Provider Documentation" section prepared by Laci Vickers. .
--- NOTE | 2018-02-27 07:53 | History & Physical Bridge Note ---
H&P Re-Evaluation Bridge Note: I have examined the patient, reviewed the History & Physical and in the interval since the performance of the History & Physical I have noted the following changes of clinical significance: No changes noted all questions answered SO at bedside
--- NOTE | 2018-02-27 08:42 | [facility] Post Operative Brief Note ---
Immediate Operative Summary Operative Date February 27, 2018. Pre-Operative Diagnosis Ovarian Carcinoma Post-Operative Diagnosis Ovarian Carcinoma Procedure(s) Performed Infusaport Insertion Left Subclavian Vein Surgeon Jackscrew Man Surgeon(s) None Estimated Blood Loss 3ML Findings See Below as preop Specimens None Anesthesia Type MAC
--- NOTE | 2018-02-27 09:13 | Anesthesiology Progress Note ---
Anesthesia Post Op Note Date & Time February 27, 2018 at 09:13 Vital Signs Pain Intensity: 0 Vital Signs Past 12 Hours Date Time Temp Pulse Resp B/P (MAP) Pulse Ox O2 Delivery O2 Flow Rate FiO2 02/27/18 09:08 36.5 95 Room Air 02/27/18 09:07 66 22 02/27/18 09:07 69 22 90 02/27/18 09:06 137/80 02/27/18 09:02 67 15 90 02/27/18 09:02 68 15 02/27/18 09:01 63 12 02/27/18 09:01 61 12 134/80 100 02/27/18 08:56 63 16 02/27/18 08:56 63 16 142/87 98 02/27/18 08:51 65 22 02/27/18 08:51 65 22 146/92 98 02/27/18 08:47 146/83 02/27/18 08:46 36.3 69 16 146/83 97 Room Air 02/27/18 06:33 36.7 75 18 153/100 (117) 98 Room Air Notes Mental Status: alert / awake / arousable, participated in evaluation Pt Amnestic to Procedure: Yes Nausea / Vomiting: adequately controlled Pain: adequately controlled Airway Patency, RR, SpO2: stable & adequate BP & HR: stable & adequate Hydration State: stable & adequate Anesthetic Complications: no major complications apparent
[2018-02-27 09:15] VITALS: BP 134/73; PULSE 64; TEMP 36.5; O2SAT 94
--- NOTE | 2018-02-27 09:15 | DIAGNOSTIC IMAGING REPORT ---
CHEST ONE VIEW PORTABLE CLINICAL HISTORY: 77 years-old Female presenting with post op port left subclavian, history of ovarian cancer. TECHNIQUE: Portable upright AP view of the chest was obtained. COMPARISON: 04/10/2017. FINDINGS: Left subclavian Mediport terminates in the lower SVC. Cardiomediastinal silhouette normal. No focal opacity. No large effusion or pneumothorax. Degenerative changes of the thoracic spine. Upper abdomen normal. IMPRESSION: 1. Interval placement of left subclavian Mediport. No pneumothorax. Electronically signed by: Goran Harper M.D. 02/27/2018 9:14 AM Dictated Date/Time: 02/27/2018 9:13 AM
[2018-02-27 09:45] VITALS: BP 133/72; PULSE 66; TEMP 36.6; O2SAT 94
--- NOTE | 2018-02-27 10:23 | OPERATIVE REPORT ---
DATE OF OPERATION: 02/27/2018 SURGEON: Diaz Wade MD PREOPERATIVE DIAGNOSIS: Ovarian cancer, need for chemotherapy. POSTOPERATIVE DIAGNOSIS: Ovarian cancer, need for chemotherapy. PROCEDURE: MRI port placement, left subclavian. SUMMARY: The patient was brought into the operating room theater, the roll placed underneath her shoulders. Left chest and neck was prepped with Betadine scrubbing solution and properly draped. Placed in Trendelenburg position. Local anesthetic was used to enter the clavicle where we were able to infiltrate percutaneous after the subclavian vein with a single stick without any difficulty. The guidewire followed fluoroscopic position in the superior vena cava and right atria. At this point, more local was used to make a counter incision approximately an inch and a half long below this 2 fingerbreadths, deepened through subcutaneous tissue. We created a pocket for the reservoir at approximately 12 o'clock in the right breast area. At this point, once tested for the port that you could easily palpate it within the guidewire that was placed percutaneously was brought out through this wound. The patient in Trendelenburg position, reimaged the system, placed the dilator introducer and easily positioned the catheter in the right atrial area, superior vena cava area. Thus we cut at appropriate skin edges about 23 cm, placed a wide bolster into the catheter and placed it on the reservoir, secured it, aspirated and flushed easily. We then sutured with nylon sutures the 3 prongs of the reservoir into the previously made pocket and closed the wound in multiple layers, 3-0 and 2-0 Dexon, 4-0 Monocryl. Prior to leaving the room, we had reimaged the system, aspirated and flushed through percutaneously and it was done without any problem. The procedure was tolerated well by the patient. Minimal blood loss. The patient was taken to recovery room in good condition. I attest to the content of the Intraoperative Record and any orders documented therein. Any exceptions are noted below. FELICITAD
--- NOTE | 2018-02-27 10:28 | OPERATIVE REPORT ---
DATE OF OPERATION: 02/27/2018 ADDENDUM PROCEDURE: MRI port. During the procedure of MRI port insertion, we used fluoroscopic guidance for this procedure. I attest to the content of the Intraoperative Record and any orders documented therein. Any exception s are noted below.
== END | disposition home or self-care (01) ==
LOC: C.ACU 06:05
PROVIDERS: ATTEND Surgery
DX: C56.9 Malignant neoplasm of unspecified ovary (principal); M19.90 Unspecified osteoarthritis, unspecified site; K21.9 Gastro-esophageal reflux disease without esophagitis; Z86.718 Personal history of other venous thrombosis and embolism; Z84.1 Family history of disorders of kidney and ureter; Z88.1 Allergy status to other antibiotic agents; Z88.6 Allergy status to analgesic agent; Z96.659 Presence of unspecified artificial knee joint

== ENCOUNTER 2021-03-15 05:07 | Observation (INO) ==
--- NOTE | 2021-02-24 15:47 | PAT Medication Instructions ---
Medication Instructions Date of Service February 24, 2021 Home Medications gabapentin [Neurontin] 100 mg PO HS PRN naproxen sodium 440 mg PO BID PRN amlodipine 5 mg PO QAM ascorbate calcium-bioflavonoid [Patsy-C] 1 tab PO QAM calcium carb-D3-mag ox-zinc ox 1 tab PO QAM potassium 99 mg PO QAM ASK your surgeon for instructions naproxen sodium 440 mg PO BID PRN DO NOT take the morning of surgery ascorbate calcium-bioflavonoid [Patsy-C] 1 tab PO QAM calcium carb-D3-mag ox-zinc ox 1 tab PO QAM potassium 99 mg PO QAM Take morning of surgery With a small sip of water, OTHERWISE NOTHING TO EAT OR DRINK AFTER MIDNIGHT: amlodipine 5 mg PO QAM Take evening before surgery gabapentin [Neurontin] 100 mg PO HS PRN (if needed) Other Notes If you have any questions please call us at [phone] or [phone] or [phone] or [phone]
--- NOTE | 2021-02-27 08:52 | Anesthesiology Consultation ---
Date of Service February 27, 2021 Assessment & Plan (1) Encounter for pre-operative examination: COVID Status: As of 02/27 assessment, patient denies travel to endemic area, known exposure/sick contacts, or symptoms of COVID19. Patient instructed that they and their household members must follow strict social distancing guidelines, wear a mask in public and avoid travel/events/gatherings for 14 days prior to surgery. Preoperative COVID19 testing to be completed on 03/10 (early due to holiday). Patient made aware to self-isolate as much as possible between COVID testing and surgery. Contusion on R side of forehead noted at PAT. Pt reports her knee gave out last night (02/26) and she fell and struck her head on the bathtub. Denies LOC, bleeding. Notable erythematous golf-ball sized lump on forehead with surrounding edema. Mildly tender to palpation. Not on any anticoagulation. Pt encouraged to proceed to ED if she experiences any worsening headaches, dizziness, confusion, visual changes. Chart Review Chart Review: Acceptable Risk for Surgery (pending pcp clearance) and Patient seen in Pre Admission Testing Teaching & Discussion Instructed NPO after midnight before surgery, except medications with 15 cc of water. Medication instructions provided according to the PAT guidelines. History Surgery Operation Date: 03/15/21 07:15 Proposed Procedures p Right Total Knee Arthroplasty - Keith Askew MD Height/Weight Height: 5 ft 5 in Weight: 72.575 kg Allergies Allergy/AdvReac Type Severity Reaction Status Date / Time oxaprozin Allergy Intermediate FEET Verified 02/24/21 09:57 SWELLING, SKIN PEELING piperacillin Allergy Intermediate hives Verified 02/24/21 09:57 tazobactam Allergy Intermediate hives Verified 02/24/21 09:57 Medications Home Medications Medication Instructions Recorded Confirmed Last Taken gabapentin [Neurontin] 100 mg PO HS PRN 08/10/18 02/24/21 Unknown naproxen sodium 440 mg PO BID PRN 08/10/18 02/24/21 Unknown amlodipine 5 mg PO QAM 02/24/21 02/24/21 Unknown ascorbate calcium-bioflavonoid 1 tab PO QAM 02/24/21 02/24/21 Unknown [Patsy-C] calcium carb-D3-mag ox-zinc ox 1 tab PO QAM 02/24/21 02/24/21 Unknown potassium 99 mg PO QAM 02/24/21 02/24/21 Unknown Past Medical History Medical History DVT (deep venous thrombosis) (~2016) ~2017, PE/DVT treated at [facility]. Post-op after hysterectomy. Fall Contusion on R side of forehead noted at PAT. Pt reports she fell last night (02/26) and struck her head on the bathtub. Denies LOC, bleeding. Notable e rythematous "goose egg" on forehead with surrounding edema. Mildly tender to palpation. 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 controlled currently, only takes gabapentin as needed. Pulmonary embolism (~2016) s/p hysterectomy Exercise / Class Metabolic Activity II 4-5 Yardwork/Stairs/Walk up hill (Limited only by knee pain, never SOB or CP, just moving slowly 2/2 knee pain/weakness) Past Family History Family History Other No family history of adverse response to anesthesia Past Surgical History Surgical History H/O abdominal hysterectomy (~2016) ZECHARIAH with BSO H/O arthroscopic knee surgery bilateral History of back surgery (~2015) to removal blood clot from spinal column History of colonoscopy History of left knee replacement Past Anesthesia History No Hx of Anesthesia Complications and No Family Hx of Anesthesia Complications History of PONV No Hx of PONV and No Hx of Motion Sickness Social History Smoking Status: Never smoker Do You Dip or Chew Tobacco: No Hx Alcohol Use: No Hx Substance Use: No substance use type: does not use Review of Systems Pt denies any recent chest pain, shortness of breath, palpitations, cough, fever, URI, or uncontrolled acid reflux. +knee pain/weakness Physical Exam Vital Signs BP: 128/74 P: 86bpm SPO2: 97% RA T: 98.2 F R: 16 ENMT Mouth: + dental restorations (few crowns); no chipped teeth and no loose teeth Thyromental Distance: > or= 3.5 Finger Breadths Mallampati Class: III Golf-ball sized erythematous lump with surrounding ~ 1.5 inch of skin-colored edema on L side of forehead. Mildly tender to palpation. Neck normal visual inspection and + limited neck extension (mildly) Respiratory normal respiratory effort, lungs clear to auscultation Cardiovascular RRR, no murmur, no edema Testing Laboratory Results 02/27/21 09:05 02/27/21 09:05 PT 9.8 Seconds (9.0-12.0) 02/27/21 09:05 INR 1.0 (0.9-1.1) 02/27/21 09:05 APTT 25.4 Seconds (21.0-31.0) 02/27/21 09:05 Hemoglobin A1c 5.4 % (4.5-5.6) 02/27/21 09:05 Urine Color Yellow 02/27/21 09:05 Urine Appearance Clear (Clear) 02/27/21 09:05 Urine pH 6.0 (4.5-7.5) 02/27/21 09:05 Ur Specific [place] 1.021 (1.000-1.030) 02/27/21 09:05 Urine Protein 3+ (Negative) H 02/27/21 09:05 Urine Glucose (UA) Negative (Negative) 02/27/21 09:05 Urine Ketones Trace (Negative) H 02/27/21 09:05 Urine Nitrite Negative (Negative) 02/27/21 09:05 Ur Leukocyte Esterase Negative (Negative) 02/27/21 09:05 Urine WBC (Auto) 10-30 /hpf (0-5) H 02/27/21 09:05 Urine RBC (Auto) 0-4 /hpf (0-4) 02/27/21 09:05 U Hyaline Cast (Auto) 1-5 /lpf (0-5) 02/27/21 09:05 U Epithel Cells (Auto) >30 /lpf (0-5) H 02/27/21 09:05 Urine Bacteria (Auto) 1+ (Negative) H 02/27/21 09:05 Blood Type A Negative 02/27/21 09:05 Antibody Screen NEGATIVE 02/27/21 09:05 *surgeon's office flagged re: + UA Electrocardiogram Date: 02/27/21 Findings: + NSR @ (72bpm) Compared to EKG from 08/10/2018, questionable change in initial forces of i nferior leads. Nonspecific T wave abnormality no longer evident in anterior leads. Chest X-Ray Date: 02/27/21 FINDINGS: No pneumothorax. No pleural effusion. No large infiltrates or consolidative lesions are seen. Cardiomediastinal silhouette is within normal limits in size. Aorta is calcified. No significant pulmonary vascular congestion.. Osseous structures: Redemonstration of degenerative changes of the spine. Stable position of left-sided chemotherapy port. IMPRESSION: 1. No acute pulmonary process. 2. Support apparatus as above.
--- NOTE | 2021-02-27 10:16 | XRay Report ---
XR chest Pre-admission PA/Lat CLINICAL HISTORY: pat PREOP COMPARISON STUDY: August 10, 2018 FINDINGS: No pneumothorax. No pleural effusion. No large infiltrates or consolidative lesions are seen. Cardiomediastinal silhouette is within normal limits in size. Aorta is calcified. No significant pulmonary vascular congestion.. Osseous structures: Redemonstration of degenerative changes of the spine. Stable position of left-sided chemotherapy port. IMPRESSION: 1. No acute pulmonary process. 2. Support apparatus as above. ACT 112: Negative or not required by law. Electronically signed by: Katarina Chawla DO 02/27/2021 11:05 AM
[2021-02-27 10:33] LABS: Appearance Urine Clear (Clear); Bilirubin Urine Negative (Negative); Blood Urine Negative (Negative); Color Urine Yellow; Epithelial Cell Urine Auto >30 /lpf (0-5); Glucose Urine UA Negative (Negative); Ketones Urine Trace (Negative); Leukocyte Esterase Urine Negative (Negative); Nitrite Urine Negative (Negative); Protein Urine 3+ (Negative); RBC Urine Automated 0-4 /hpf (0-4); Specific Gravity Urine 1.021 (1.000-1.030); Urobilinogen Urine Negative (Negative)
[2021-02-27 10:34] LABS: Basophils # (auto) 0.01 K/uL (0-0.2); Basophils % (auto) 0.1 %; Eosinophils % (auto) 1.3 %; Hematocrit (blood only) 42.7 % (37-47); Hemoglobin 14.1 g/dL (12.0-16.0); Immature Granulocytes # (auto) 0.01 K/uL (0.00-0.02); Immature Granulocytes % (auto) 0.1 %; Lymphocytes # (auto) 1.33 K/uL (1.2-3.4); Lymphocytes % (auto) 17.4 %; Mean Corpuscular Hemoglobin 30.2 pg (25-34); Mean Corpuscular Volume 91.4 fL (80-100); Mean Platelet Volume 10.2 fL (7.4-10.4); Monocytes # (auto) 0.87 K/uL (0.11-0.59); Monocytes % (auto) 11.4 %; Neutrophils # (auto) 5.33 K/uL (1.4-6.5); Neutrophils % (auto) 69.7 %; Platelet Count 240 K/uL (130-400); RDW Standard Deviation 43.3 fL (36.4-46.3); Red Blood Count 4.67 M/uL (4.2-5.4); White Blood Count 7.65 K/uL (4.8-10.8)
[2021-02-27 10:41] LABS: Bacteria Urine Automated 1+ (Negative); Mucus Urine Present (None Prsent); Partial Thromboplastin Time 25.4 Seconds (21.0-31.0); Prothrombin Time 9.8 Seconds (9.0-12.0)
[2021-02-27 11:27] LABS: Albumin Level 3.2 gm/dl (3.4-5.0); BUN Creatinine Ratio 33.4 (10-20); Calcium 9.1 mg/dl (8.5-10.1); Creatinine Clr Calc Pharmacy 53.2 ml/min; Est GFR (Non-African American) 63.8 ml/min; Potassium 4.8 mmol/L (3.5-5.1)
[2021-02-27 11:40] LABS: Estimated Average Glucose 108 mg/dl; Hemoglobin A1C 5.4 % (4.5-5.6)
--- NOTE | 2021-02-27 17:59 | Electrocardiogram Report ---
Test Reason : Blood Pressure : / mmHG Vent. Rate : 072 BPM Atrial Rate : 072 BPM P-R Int : 144 ms QRS Dur : 076 ms QT Int : 376 ms P-R-T Axes : 048 -18 042 degrees QTc Int : 411 ms Normal sinus rhythm When compared with ECG of 10-AUG-2018 21:49, Nonspecific T wave abnormality no longer evident in Anterior leads Confirmed by Juancho Mayes ([id number]) on 02/27/2021 5:59:39 PM Referred By: Keith Askew Confirmed By:Garrison Mayes
--- NOTE | 2021-03-13 19:08 | History & Physical Report ---
Date of Service March 13, 2021 Assessment & Plan (1) Primary osteoarthritis of right knee: Treatment options discussed with the patient. She has failed conservative measures as above. She would like to proceed with surgical intervention. Risks, benefits and alternatives to surgery including but not limited to infection, DVT, pain, stiffness, need for revision surgery, damage to blood vessels, damage to nerves, PE, , were discussed with the patient and they wish to proceed. Plan on right total knee arthroplasty at [facility] on 03/15/21. Will plan on ASA vs Xarelto 10mg daily for DVT prophylaxis as patient does have hx of DVT. Will plan on HHPT post discharge. All questions answered. F/u post operatively. History of Present Illness Chief Complaint: Right knee pain Primary Care Provider: Adelso Ruiz MD 80 year old female with PMHx significant for HTN, Ovarian Ca currently undergoing chemo, GERD, DVT/PE who presents with ongoing right knee pain. Pain is interfering with her ability to carry out normal daily and leisure activity. She has failed conservative measures including injections and therapy. She previously underwent left knee replacement. She would like to proceed with surgical intervention. Patient denies headaches, sweats, fevers, chills, double vision, blurred vision, cough, sore throat, dysphagia, chest pain, sob, wheezing, n/v/d/c, numbness, tingling, fatigue, urinary symptoms, mood disorders. ROS positive for right knee pain and stiffness. Allergies Allergy/AdvReac Type Severity Reaction Status Date / Time oxaprozin Allergy Intermediate FEET Verified 02/24/21 09:57 SWELLING, SKIN PEELING piperacillin Allergy Intermediate hives Verified 02/24/21 09:57 tazobactam Allergy Intermediate hives Verified 02/24/21 09:57 Home Medications Medication Instructions Recorded Confirmed Type gabapentin [Neurontin] 100 mg PO HS PRN 08/10/18 02/24/21 History naproxen sodium 440 mg PO BID PRN 08/10/18 02/24/21 History amlodipine 5 mg PO QAM 02/24/21 02/24/21 History ascorbate calcium-bioflavonoid 1 tab PO QAM 02/24/21 02/24/21 History [Patsy-C] calcium carb-D3-mag ox-zinc ox 1 tab PO QAM 02/24/21 02/24/21 History potassium 99 mg PO QAM 02/24/21 02/24/21 History Past Med/Surg History Medical History DVT (deep venous thrombosis) (~2016) ~2017, PE/DVT treated at [facility]. Post-op after hysterectomy. Fall Contusion on R side of forehead noted at PAT. Pt reports she fell last night (02/26) and struck her head on the bathtub. Denies LOC, bleeding. Notable erythematous "goose egg" on forehead with surrounding edema. Mildly tender to palpation. 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 controlled currently, only takes gabapentin as needed. 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: No Beliefs That Will Affect Care: None marital status: Current Living Situation: Alone current occupational status: retired Feels Safe at Home: Yes Assistive Devices: Cane and Glasses Review of Systems All systems reviewed & are unremarkable except as noted in HPI & below Physical Exam Constitutional: well developed and well nourished; no acute distress Eyes: PERRL, conjunctivae normal, anicteric sclerae ENMT: external ear and nose normal, oropharynx normal Neck: trachea midline, no thyromegaly Respiratory: normal respiratory effort, lungs clear to auscultation Cardiovascular: RRR, no murmur, no edema Musculoskeletal: Right knee: Varus alignment. Mild effusion. tenderness medial joint line. Positive Arnol's. Stable to valgus and varus stress. Painful ROM. 0-125 Skin: no rashes, warm and dry Neurologic: patellar DTR's 2+ bilat, sensation intact Psychiatric: A+Ox3, euthymic affect Results & Data ([facility]) Laboratory Results Lab Results 02/27/21 02/27/21 02/27/21 Range/Units 09:05 09:05 09:05 WBC 7.65 (4.8-10.8) K/uL RBC 4.67 (4.2-5.4) M/uL Hgb 14.1 (12.0-16.0) g/dL Hct 42.7 (37-47) % MCV 91.4 (80-100) fL MCH 30.2 (25-34) pg MCHC 33.0 (32-36) g/dL RDW Std Deviation 43.3 (36.4-46.3) fL RDW Coeff of Sydni 13.0 (11.5-14.5) % Plt Count 240 (130-400) K/uL MPV 10.2 (7.4-10.4) fL Immature Gran % (Auto) 0.1 % Neut % (Auto) 69.7 % Lymph % (Auto) 17.4 % [place] % (Auto) 11.4 % Eos % (Auto) 1.3 % Baso % (Auto) 0.1 % Neut # (Auto) 5.33 (1.4-6.5) K/uL Lymph # (Auto) 1.33 (1.2-3.4) K/uL [place] # (Auto) 0.87 H (0.11-0.59) K/uL Eos # (Auto) 0.10 (0-0.5) K/uL Baso # (Auto) 0.01 (0-0.2) K/uL Immature Gran # (Auto) 0.01 (0.00-0.02) K/uL PT 9.8 (9.0-12.0) Seconds INR 1.0 (0.9-1.1) APTT 25.4 (21.0-31.0) Seconds PTT Ratio 1.0 Sodium (136-145) mmol/L Potassium (3.5-5.1) mmol/L Chloride (98-107) mmol/L Carbon Dioxide (21-32) mmol/L Anion Gap (3-11) BUN (7-18) mg/dl Creatinine (0.6-1.2) mg/dl Est Cr Clr Drug Dosing ml/min Est GFR ( Amer) ml/min Est GFR (Non-Af Amer) ml/min BUN/Creatinine Ratio (10-20) Glucose (70-99) mg/dl Estimat Average Glucose mg/dl Hemoglobin A1c (4.5-5.6) % Calcium (8.5-10.1) mg/dl Albumin (3.4-5.0) gm/dl Urine Color Urine Appearance (Clear) Urine pH (4.5-7.5) Ur Specific [place] (1.000-1.030) Urine Protein (Negative) Urine Glucose (UA) (Negative) Urine Ketones (Negative) Urine Blood (Negative) Urine Nitrite (Negative) Urine Bilirubin (Negative) Urine Urobilinogen (Negative) Ur Leukocyte Esterase (Negative) Urine WBC (Auto) (0-5) /hpf Urine RBC (Auto) (0-4) /hpf U Hyaline Cast (Auto) (0-5) /lpf U Epithel Cells (Auto) (0-5) /lpf Urine Bacteria (Auto) (Negative) Urine Mucus (None Prsent) Blood Type A Negative Antibody Screen NEGATIVE 02/27/21 02/27/21 02/27/21 Range/Units 09:05 09:05 09:05 WBC (4.8-10.8) K/uL RBC (4.2-5.4) M/uL Hgb (12.0-16.0) g/dL Hct (37-47) % MCV (80-100) fL MCH (25-34) pg MCHC (32-36) g/dL RDW Std Deviation (36.4-46.3) fL RDW Coeff of Sydni (11.5-14.5) % Plt Count (130-400) K/uL MPV (7.4-10.4) fL Immature Gran % (Auto) % Neut % (Auto) % Lymph % (Auto) % [place] % (Auto) % Eos % (Auto) % Baso % (Auto) % Neut # (Auto) (1.4-6.5) K/uL Lymph # (Auto) (1.2-3.4) K/uL [place] # (Auto) (0.11-0.59) K/uL Eos # (Auto) (0-0.5) K/uL Baso # (Auto) (0-0.2) K/uL Immature Gran # (Auto) (0.00-0.02) K/uL PT (9.0-12.0) Seconds INR (0.9-1.1) APTT (21.0-31.0) Seconds PTT Ratio Sodium 140 (136-145) mmol/L Potassium 4.8 (3.5-5.1) mmol/L Chloride 107 (98-107) mmol/L Carbon Dioxide 30 (21-32) mmol/L Anion Gap 3.0 (3-11) BUN 29 H (7-18) mg/dl Creatinine 0.87 (0.6-1.2) mg/dl Est Cr Clr Drug Dosing 53.2 ml/min Est GFR ( Amer) 74.0 ml/min Est GFR (Non-Af Amer) 63.8 ml/min BUN/Creatinine Ratio 33.4 H (10-20) Glucose 80 (70-99) mg/dl Estimat Average Glucose 108 mg/dl Hemoglobin A1c 5.4 (4.5-5.6) % Calcium 9.1 (8.5-10.1) mg/dl Albumin 3.2 L (3.4-5.0) gm/dl Urine Color Yellow Urine Appearance Clear (Clear) Urine pH 6.0 (4.5-7.5) Ur Specific [place] 1.021 (1.000-1.030) Urine Protein 3+ H (Negative) Urine Glucose (UA) Negative (Negative) Urine Ketones Trace H (Negative) Urine Blood Negative (Negative) Urine Nitrite Negative (Negative) Urine Bilirubin Negative (Negative) Urine Urobilinogen Negative (Negative) Ur Leukocyte Esterase Negative (Negative) Urine WBC (Auto) 10-30 H (0-5) /hpf Urine RBC (Auto) 0-4 (0-4) /hpf U Hyaline Cast (Auto) 1-5 (0-5) /lpf U Epithel Cells (Auto) >30 H (0-5) /lpf Urine Bacteria (Auto) 1+ H (Negative) Urine Mucus Present A (None Prsent) Blood Type Antibody Screen Diagnostic Findings Right knee: varus knee. There is bone on bone in the medial compartment with bone loss, more toward the flexion surface of the knee. There is tricompartmental osteoarthritis. There is subchondral sclerosis noted.
[2021-03-15] MEDS ORDERED: FAMOTIDINE 20 MG TAB PO SCH (06:00)
[2021-03-15] MEDS ORDERED: TRANEXAMIC ACID 1,000 MG **IV Pre-op IV SCH (06:00)
[2021-03-15] MEDS ORDERED: ACETAMINOPHEN 500 MG TAB PO SCH (06:00)
[2021-03-15] MEDS ORDERED: ROPIVACAINE 0.5% HCL/PF 150 MG, BUPIVACAINE 0.75% MPF 20 ML, EPINEPHrine 30MG/30ML (OR ... INSTIL SCH (06:00)
[2021-03-15] MEDS ORDERED: LR 500ML BOLUS, THEN 15ML/HR IV SCH (06:00)
[2021-03-15] MEDS ORDERED: CeleBREX 200 MG CAP PO SCH (06:00)
[2021-03-15] MEDS ORDERED: dexAMETHasone 4 MG TAB PO SCH (06:00)
[2021-03-15] MEDS ORDERED: ceFAZolin 1000MG 1,000 MG/7.5 ML SYR IV SCH (06:00)
[2021-03-15] MEDS ORDERED: GABAPENTIN 300 MG CAP PO SCH (06:00)
[2021-03-15] MEDS ORDERED: TRANEXAMIC ACID 1,000 MG **IV Intra-op IV SCH (06:00)
[2021-03-15] MEDS ORDERED: METOCLOPRAMIDE HCL 10 MG TABLET PO SCH (06:00)
[2021-03-15] MEDS ORDERED: BUPIVACAINE 0.5 % 5 MG/1 ML PF 10ML VIAL ONE (06:25)
[2021-03-15] MEDS ORDERED: ROPIVACAINE 0.5% 5 MG/ML 30 ML VIAL ONE (06:25)
[2021-03-15] MEDS ORDERED: MIDAZOLAM HCL 1 MG/ML 2ML VIAL ONE ×2 (06:46→07:15)
[2021-03-15] MEDS ORDERED: PROPOFOL IV EMULSION 10 MG/ML 20 ML VIAL IV ONE (06:46)
[2021-03-15] MEDS ORDERED: fentaNYL citrate 100 MCG/2 ML VIAL ONE (06:47)
[2021-03-15] MEDS ORDERED: ONDANSETRON INJ 2 MG/ML 2 ML VIAL IV PRN ×2 (06:54→10:46)
[2021-03-15] MEDS ORDERED: HYDROmorphone INJ 2 MG/ML SYR/VIAL IV PRN (06:54)
[2021-03-15] MEDS ORDERED: fentaNYL citrate 100 MCG/2 ML VIAL IV PRN (06:54)
[2021-03-15] MEDS ORDERED: ATROPINE SULFATE 0.1 MG/ML 10ML SYR IV PRN (06:54)
[2021-03-15] MEDS ORDERED: METOCLOPRAMIDE HCL INJ 5 MG/ML 2 ML VIAL IV PRN ×2 (06:54→10:46)
[2021-03-15] MEDS ORDERED: ePHEDrine sulfate 50 MG/ML AMP IV PRN (06:54)
[2021-03-15] MEDS ORDERED: PROMETHAZINE HCL 12.5 MG in SODIUM CHLORIDE 0.9% 50 ML IV PRN (06:54)
[2021-03-15] MEDS ORDERED: ORTHO JOINT ANESTHETIC ONE (06:57)
--- NOTE | 2021-03-15 07:15 | History & Physical Bridge Note ---
Date of Service March 15, 2021 History & Physical Bridge Note I have examined the patient, reviewed the History & Physical and in the interval since the performance of the History & Physical I have noted the following changes of clinical significance: no changes noted
--- NOTE | 2021-03-15 09:37 | Post Operative Brief Note ---
Immediate Post Op Note v1 Date of Surgery March 15, 2021 Pre & Post Diagnosis Operation Date: 03/15/21 07:15 Pre-Op Diagnosis: Unilateral Primary Osteoarthritis Post-Op Diagnosis: Unilateral Primary Osteoarthritis I identified the patient and participated in the time-out.: Yes Procedure Operation Date: 03/15/21 07:15 Actual Procedures p Right Total Knee Arthroplasty(Right) - Keith Askew MD Surgeon Keith Askew MD Beef Breaker Gurpreet MONTERO Estimated Blood Loss 5 Findings Consistent with Post-Op Diagnosis Specimens Bone cuts Drains Hemovac Drain Anesthesia Type MAC Spinal Regional Complications none Disposition Accompanied Patient To Recovery: No Disposition: Recovery Room Overlapping Procedure I was immediately available: during the entire case.
--- NOTE | 2021-03-15 10:06 | Operative Report ---
Post Operative Report Pre & Post Diagnosis Operation Date: 03/15/21 07:15 Pre-Op Diagnosis: Osteoarthritis right knee end-stage Post-Op Diagnosis: Osteoarthritis right knee end-stage I identified the patient and participated in the time-out.: Yes Procedure Operation Date: 03/15/21 07:15 Actual Procedures p Right Total Knee Arthroplasty(Right), superficial wound VAC- Keith Askew MD Surgeon Keith Askew MD Wedding Day Coordinator Gurpreet MONTERO Estimated Blood Loss 5 Findings Consistent with Post-Op Diagnosis Specimens Bone cuts Drains 2 Hemovac Anesthesia Type MAC Spinal Regional Complications none Disposition Accompanied Patient To Recovery: No Disposition: Recovery Room Indications 80-year-old female with progressive osteoarthritis of right knee failed conservative management. Patient has patellofemoral medial compartment osteoarthritis with varus knee [id number] medial compartment with some bone loss. Description of Procedure The patient was taken to the operating room and anesthetized under spinal MAC regional. Patient was placed supine on the the operating table. A pneumatic tourniquet was placed about the right upper thigh. The knee exam demonstrated 0 through 120 degrees range of motion varus knee no pseudolaxity. The involved leg was elevated exsanguinated with Esmarch bandage and the pneumatic tourniquet was raised to 300 millimeters mercury. A longitudinal incision was made across the anterior knee. Skin flaps were elevated. An incision was made into the medial retinaculum and extended up into the mid third of the quadriceps tendon and extended down to the tibial tubercle. There was moderate obesity mild edema and multiple varicose veins that were cauterized. Intra-articular findings demonstrated chronically torn ACL [id number] the medial compartment grade 4 with some bone loss. Patient had increased posterior slope of the tibia. Patient had grade 3 osteoarthritis patellofemoral joint tricompartmental osteophytes. The knee was exposed by excising the posterior cruciate ligament and menisci. The infrapatellar fat pad was resected. The fat pad over the anterior femur at the upper aspect of the articular surface was resected for placement of the component in that area. A subperiosteal peel lateral release was performed around the patella. Lateral synovial bands were released. The Lopez [employer] Nephew journey 2.0 posterior stabilized total knee arthroplasty system was utilized for the procedure. The intramedullary drill hole was made into the femur the guidewire was placed distal femoral cut was made at standard distal cut at 5 degrees valgus. The sizing guide was placed and femur sized for size 6. Drill holes were placed in 3 degrees of external rotation to match epicondylar axis. The size 6, 5 in 1 cutting block was placed. The anterior posterior and chamfer cuts were made. The knee was extended and a free hand cut technique was performed to the patella. The patella with was measured and the width was reproduced using a 35 symmetrical patella component. 3 drill holes are made for the patella component pegs. The tibia was then subluxed. The custom tibial cutting block was pinned in position and the proximal tibial cut was made with the oscillating saw. The size 5 tibial trial was externally rotated in line with the tibial tubercle and pinned in position. The punch for the stem was used. The femoral trial was inserted and centered the notch cutting devices were used and the collet was placed. Tibial trials were used for the insert. The size 10 trial gave balanced ligaments through full range of motion. Patella tracking was assessed with range of motion. The patella tracked centrally. The trials were removed. The Orthomix anesthetic cocktail was injected per protocol. The cut bone surfaces and soft tissue were copiously irrigated with antibiotic solution with bacitracin. The final components were c emented with Simplex cement. The final components were Lopez [employer] Nephew journey 2.0 posterior stabilized size 6 right femoral component, size 5 tibial component, 10 polyethylene posterior stabilized tibial insert, 35 symmetrical patella.. While the cement cured the Betadine soak was used per protocol. When the cement cured the knee was copiously irrigated with pulsatile lavage saline solution . 2 drains were brought out laterally connected to Hemovac. The quadriceps tendon and medial retinaculum were closed with interrupted [id number] #1 Vicryl sutures. The knee was taken through full range of motion and repair was secure. The subcutaneous tissues were closed with 2-0 Vicryl sutures. The skin was closed with abdelrahman. A nanda and Acticoat superficial wound VAC was applied. The tourniquet was let down and the patient had good capillary refill to the extremity. The patient tolerated the procedure well. My physician office clerk assistant Gurpreet Hastings assisted in the procedure including prepping draping leg positioning soft tissue retraction instrument management and assisted in the closure , superficial wound VAC application and will participate in postoperative care the patient. I attest to the content of the Intraoperative Record and any orders documented therein. Any exceptions are noted below.
--- NOTE | 2021-03-15 10:41 | Anesthesiology Progress Note ---
Date of Service March 15, 2021 Anesthesia Post Procedure Vital Signs Vital Signs: Temp Pulse Pulse Resp BP BP Pulse Ox 03/15/21 10:10 59 L 12 165/81 H 97 03/15/21 10:00 36.5 C 67 19 166/87 H 96 03/15/21 09:50 72 17 164/77 H 93 03/15/21 09:44 36.0 C L 74 14 168/87 H 93 03/15/21 05:56 36.7 C 81 18 156/92 H 97 Pain Intensity Right Leg: Pain Intensity: 2 Transfer of Care Handoff Completed per policy Notes Mental Status: alert / awake / arousable and participated in evaluation Patient Amnestic to Procedure: Yes Nausea / Vomiting: adequately controlled Pain: adequately controlled Airway Patency, RR, SpO2: stable & adequate BP & HR: stable & adequate Hydration State: stable & adequate Neuraxial Anesthesia: was administered and sensory block is resolving Anesthetic Complications: no major complications apparent
[2021-03-15] MEDS ORDERED: oxyCODONE HCL IR 5 MG TAB (IMMEDIATE RELEASE) PO PRN (10:46)
[2021-03-15] MEDS ORDERED: GABAPENTIN 100 MG CAP PO PRN (10:46)
[2021-03-15] MEDS ORDERED: NALOXONE HCL 0.4 MG/1 ML VIAL/CARP IV PRN (10:46)
[2021-03-15] MEDS ORDERED: bisacodyL 10 MG SUPP PR PRN (10:46)
[2021-03-15] MEDS ORDERED: MAGNESIUM HYDROXIDE SUSP 30 ML UDC PO PRN (10:46)
[2021-03-15] MEDS ORDERED: HYDROmorphone INJ 0.5 MG/0.5 ML SYR IV PRN (10:46)
--- NOTE | 2021-03-15 11:25 | Hospitalist Consultation ---
Date of Consultation March 15, 2021 Assessment & Plan (1) Primary osteoarthritis of right knee: As per HPI and Operative summary - Pain controlled, continue tiered pain regime- patient re-educated on use of pain medication early and prior to PT/OT sessions - Antibiotic per primary team - SCD's and TEDS on as they are - Chemoprophylaxis as you have already done to start tomorrow- Xeralto 10mg - PT/OT - Hemovac per primary team - ICS education provided 10 x per hour or while commercial on during TV (2) HTN (hypertension): 140-160 on outpaitinet review, however this is limited trend - Continue to follow goal <140 - Continue Amlodipine 5 - If BP >180 notify hospitalist for treatment (3) Ovarian cancer: As per HPI- continues treatment with Avastin (4) Gastritis: Will add on PPI- Protonix 20 mg daily while on NSAIDS and Xeralto - Appropriate Bowel regime already, continue. (5) Pulmonary embolism: As per HPI history- DVT with PE - Current therapy with SCD's, HEENA, and Chemoprophylaxis adequate (6) Lower urinary tract symptoms (LUTS): Currently she reports no symptoms other than her normal frequency through the night- as per HPI she stopped her Myrbetriq - Low threshold to send UA if she develops symptoms - Follow with bladder scans as you are as spinal wears off - PVR if concern and send UA for retention or incomplete emptying feelings Supervising Physician Co-Signing Physician Notes Attending Attestation - Pt seen/examined, chart reviewed, care plan d/w TIA Dominguez. I agree w/ the casey components of her documentation. Pleasant 80yo female - h/o ovarian ca with carcinomatosis, DVT/PE 2017 perioperatively at [facility] [place] s/p temporary IVC filter, HTN - underwent elective right TKR today. Saw patient post-op on ortho floor. Minimal right knee pain. No dyspnea, chest pain, abd pain, nausea. Hoping to go home tomorrow. She cannot recall if she took anticoagulation following her VTE event in 2017. Not on recent anticoagulation. Follows w/ heme/onc in [place] for her ovarian ca - getting active Rx for such. PMH/PSH/allergies/meds/sochx/famhx - reviewed VSS, afebrile, o2 sats wnl gen- NAD neck- no JVD heart- RRR, s1 s2 lungs- CTA b/l abd- soft, BS present but slightly decreased, NT musculo - right knee drain in place, dressings in place ext- pulses 2+ b/l preop labs reviewed; of note CA-125 level undetectable late January COVID test today neg A/P: 1. s/p right TKR - per ortho. 2. DVT proph - by report will be receiving xarelto 10mg daily. I agree w/ such. 3. HTN - cont amlodipine. Will follow. Cristo Marie MD History of Present Illness Reason for Consultation: Post operative medical management Requesting Physician: Dr. Verde Attending Physician: Keith Askew MD History of Present Illness 80 YOF with past medical history of arthritis, HTN, Ovarian cancer (currently on Avastin q3 weeks), carcinamatosis, urinary frequency/incontenence, osteoarthritis, left total knee, bilateral lower extremity DVT with PE and IVC filter placement 2016, epidural hematoma, and left subclavian Mediport insertion. Patient is POD #0 from right total knee arthroplasty with spinal regional anesthesia. She was seen in her room following her procedure this morning. 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 Still with effects to right lower extremity from spinal, but sensation is becoming more normal. Her pain is controlled at the moment, is tolerating water with out nasuea, and is on 2LNC post operatively. Overall she feels like she is doing well, is to follow up with wireless network engineer post surgery to schedule her next Avastin therapy, she recently stopped her Myrbetriq as she didn't feel as it was helping her symptoms. She did no recall much history of her pulmonary embolism and IVC filter. Her HTN appears close to controlled on her outpatient review. Continue with post-operative care as well as diet progression with bowel regimine. Allergies Allergy/AdvReac Type Severity Reaction Status Date / Time oxaprozin Allergy Intermediate FEET Verified 03/15/21 05:35 SWELLING, SKIN PEELING piperacillin Allergy Intermediate hives Verified 03/15/21 05:35 tazobactam Allergy Intermediate hives Verified 03/15/21 05:35 Home Medications Medication Instructions Recorded Confirmed Type gabapentin [Neurontin] 100 mg PO HS PRN 08/10/18 03/15/21 History naproxen sodium 440 mg PO BID PRN 08/10/18 03/15/21 History amlodipine 5 mg PO QAM 02/24/21 03/15/21 History ascorbate calcium-bioflavonoid 1 tab PO QAM 02/24/21 03/15/21 History [Patsy-C] calcium carb-D3-mag ox-zinc ox 1 tab PO QAM 02/24/21 03/15/21 History potassium 99 mg PO QAM 02/24/21 03/15/21 History Patient History Medical History (Updated 03/15/21 @ 12:05 by TIA Rich) DVT (deep venous thrombosis) (~2016) ~2017, PE/DVT treated at [facility]. Post-op after hysterectomy. Fall Contusion on R side of forehead noted at PAT. Pt reports she fell last night (02/26) and struck her head on the bathtub. Denies LOC, bleeding. Notable erythematous "goose egg" on forehead with surrounding edema. Mildly tender to palpation. 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 controlled currently, only takes gabapentin as needed. Pulmonary embolism (~2016) s/p hysterectomy Surgical History (Updated 03/15/21 @ 18:28 by Cristo Marie) H/O abdominal hysterectomy (~2016) ZECHARIAH with BSO H/O arthroscopic knee surgery bilateral History of back surgery (~2015) to removal blood clot from spinal column History of colonoscopy History of left knee replacement S/P insertion of IVC (inferior vena caval) filter 2017, [facility] Family History Other No family history of adverse response to anesthesia Social History Smoking Status: Never smoker Second Hand Exposure: No; Do You Dip or Chew Tobacco: No; Tobacco Cessation Education Requested by Patient: No Hx Alcohol Use: No Hx Substance Use: No Preferred Language: Turkmen Communication Ability: Effective Staff Development Coordinator Rn Required: No Beliefs That Will Affect Care: None marital status: Current Living Situation: Alone current occupational status: retired How many Children do You have: 2 Other Information That Helps Us Care for You: No Feels Safe at Home: Yes Safety Concerns: Feels Safe At This Time Assistive Devices: Glasses and Walker Assistive Devices Comment: [place] Review of Systems Review of Systems: REVIEW OF SYSTEMS: Constitutional: No fever, sweats or chills Eyes: No diplopia, no worsening or blurred vision ENT: normal hearing, no trouble swallowing Respiratory: No cough, sputum, dyspnea at rest or on exertion Cardiovascular: No chest pain, tightness or palpitations Abdomen: No pain, nausea, vomiting, diarrhea or constipation Musculoskeletal: (+) as per HPI joint pain, NO calf pain, swelling Neurologic: No weakness, numbness/tingling, or balance problems Psychiatric: No anxiety or depression Skin: No rash or itch Physical Exam Physical Exam: PHYSICAL EXAM: General: awake, alert, no apparent distress Head: Normocephalic, atraumatic ENT: PERRL, EOMI, no pharyngeal exudate, mucous membranes moist Neuro: AAO x 3, speech clear and appropriate, strength intact bilaterally 5/5 Left and Right upper extremities, Left Right lower extremity still with effects from local spinal, sensation is returning to more normal on that side sensation intact to upper thigh and mid calf. no pronator drift Chest: equal rise and fall of the chest, no accessory muscle use, no heaves or thrills, Clear to auscultation, on 2LNC, Cardiac: Regular rate and rhythm, telemetry reviewed, skin warm dry, cap refill <3 seconds, peripheral pulses +2 no JVD, no murmur, no edema, GI: NABS x 4 quadrants, soft, nontender to palpation, no rebound, guarding or tenderness : no pain, no CVA tenderness, Extremities: Normal inspection, no peripheral edema or erythema, calfs nontender to palpation, right lower extremity wrapped with sara wrap, peripheral pulses 2+ and warm. Hemovac drain to right knee with minimal serous sang drainage, thigh high SCD's on as well as HEENA to left leg. Psych: Normal mood and affect Skin: no rash or erythema Results & Data Results & Data ([facility]) Vital Signs (Past 12 Hours) Vital Signs Temp Pulse Pulse Resp BP BP Pulse Ox 03/15/21 11:06 36.5 C 64 16 156/78 H 96 03/15/21 10:25 36.4 C L 63 16 169/63 H 98 03/15/21 10:10 59 L 12 165/81 H 97 03/15/21 10:00 36.5 C 67 19 166/87 H 96 03/15/21 09:50 72 17 164/77 H 93 03/15/21 09:44 36.0 C L 74 14 168/87 H 93 03/15/21 05:56 36.7 C 81 18 156/92 H 97 Laboratory Results Pre-op labs from February 27 reveiwed, Diagnostic Findings Chest X-Ray 02/27/21 08:23 XR chest Pre-admission PA/Lat CLINICAL HISTORY: pat PREOP COMPARISON STUDY: August 10, 2018 FINDINGS: No pneumothorax. No pleural effusion. No large infiltrates or consolidative lesions are seen. Cardiomediastinal silhouette is within normal limits in size. Aorta is calcified. No significant pulmonary vascular congestion.. Osseous structures: Redemonstration of degenerative changes of the spine. Stable position of left-sided chemotherapy port. IMPRESSION: 1. No acute pulmonary process. 2. Support apparatus as above. Electronically signed by: Katarina Chawla DO 02/27/2021 11:05 AM Knee X-Ray 03/15/21 09:49 XR knee RT 1 or 2V routine HISTORY: 80 years-old Female Surgical Post Op right knee total joint arthroplasty COMPARISON: Right knee radiographs 08/13/2014 TECHNIQUE: 2 views the right knee FINDINGS: Right knee total joint arthroplasty and patella resurfacing. Anterior midline skin abdelrahman are noted in addition to expected postoperative soft tissue swelling and deep tissue air with surgical drainage catheter. No unexpected opaque foreign body. No acute fracture or malalignment. Arterial calcifications. IMPRESSION: Right knee total joint arthroplasty and patella resurfacing with expected postoperative changes. Electronically signed by: Bryan Blum M.D. 03/15/2021 11:35 AM Medications Administered Acetaminophen (Acetaminophen 500 Mg Tab) 1,000 mg PO PREOP ERIC Stop: 03/15/21 18:00 Last Admin: 03/15/21 05:39 Dose: 1,000 mg Documented by: [id number] Celecoxib (Celebrex 200 Mg Cap) 200 mg PO PREOP ERIC Stop: 03/15/21 18:00 Last Admin: 03/15/21 06:46 Dose: 200 mg Documented by: [id number] Dexamethasone (Dexamethasone 4 Mg Tab) 8 mg PO PREOP ERIC Stop: 03/15/21 18:00 Last Admin: 03/15/21 05:40 Dose: 8 mg Documented by: [id number] Famotidine (Famotidine 20 Mg Tab) 20 mg PO PREOP ERIC Stop: 03/15/21 18:00 Last Admin: 03/15/21 05:41 Dose: 20 mg Documented by: [id number] Gabapentin (Gabapentin 300 Mg Cap) 300 mg PO PREOP ERIC Stop: 03/15/21 18:00 Last Admin: 03/15/21 05:43 Dose: 300 mg Documented by: [id number] Lactated Ringer's (Lr) 1,000 mls @ 15 mls/hr IV .Q24H ERIC Stop: 03/15/21 18:00 Last Infusion: 03/15/21 07:32 Dose: 0 mls/hr Documented by: [id number] Admin: 03/15/21 05:44 Dose: 15 mls/hr Documented by: [id number] Cefazolin Sodium (Ancef 1000mg) 1,000 mg in 7.5 mls @ 2.5 mls/min IV PREOP ERIC; Protocol Stop: 03/15/21 18:00 Last Admin: 03/15/21 07:32 Dose: 2.5 mls/min Documented by: [id number] Tranexamic Acid (Tranexamic Acid / 0.7% Nacl) 1,000 mg in 100 mls @ 600 mls/hr IV TODAY@0600 ERIC Stop: 03/15/21 18:00 Last Infusion: 03/15/21 07:28 Dose: 0 mls/hr Documented by: [id number] Admin: 03/15/21 07:17 Dose: 600 mls/hr Documented by: [id number] Tranexamic Acid (Tranexamic Acid / 0.7% Nacl) 1,000 mg in 100 mls @ 600 mls/hr IV TODAY@0600 ERIC Stop: 03/15/21 18:00 Last Infusion: 03/15/21 11:52 Dose: 600 mls/hr Documented by: [id number] Admin: 03/15/21 09:12 Dose: 600 mls/hr Documented by: [id number] Sodium Chloride (Nss 1000ml) 1,000 mls @ 100 mls/hr IV .Q10H ERIC Stop: 03/16/21 06:00 Last Admin: 03/15/21 11:33 Dose: 100 mls/hr Documented by: [id number] Metoclopramide HCl (Metoclopramide Hcl 10 Mg Tablet) 10 mg PO PREOP ERIC Stop: 03/15/21 18:00 Last Admin: 03/15/21 05:44 Dose: 10 mg Documented by: [id number] Discontinued Medications Ropivacaine 150 mg/Bupivacaine HCl 20 ml/Epinephrine HCl 0.15 mg/Ketorolac Tromethamine 30 mg/Dexamethasone 4 mg/ Ketamine HCl 10 mg/ Clonidine HCl 100 mcg/ Sodium Chloride 88.35 mls @ 0 mls/hr INSTIL TODAY@0600 [facility]; Protocol Stop: 03/15/21 06:01 Last Admin: 03/15/21 08:08 Dose: 93.35 mls/hr Documented by: [id number] Miscellaneous (Ortho Joint Anesthetic ) Confirm Administered Dose 1 ea .ROUTE .STK-MED ONE Stop: 03/15/21 06:58 Last Admin: 03/15/21 08:08 Dose: Not Given Documented by: [id number] ECG Additional Comments: Normal sinus rhythm- February 27, 2021 Vent. rate 72 BPM IN interval 144 ms QRS duration 76 ms QT/QTc 376/411 PG Care Time/CCT Total # of Minutes Spent Total Time Spent with Patient: Total time spent is greater than 50% in coordinat ion of care (as documented) at patient's floor/unit and/or counseling patient: Coding Level of Care Code 93873 Inpt Consult Level 3 Diagnoses Primary osteoarthritis of right knee M17.11 HTN (hypertension) I10 Hypertension type: essential hypertension Ovarian cancer C56.9 Laterality: unspecified laterality Gastritis K29.70 Chronicity: unspecified Gastritis bleeding: without bleeding Gastritis type: unspecified gastritis Pulmonary embolism I26.99 Acute cor pulmonale presence: unspecified Chronicity: unspecified Pulmonary embolism type: unspecified Lower urinary tract symptoms (LUTS) R39.9 (1) Ovarian cancer Laterality: unspecified laterality Qualified Code(s): C56.9 - Malignant neoplasm of unspecified ovary (2) Gastritis Chronicity: unspecified Gastritis bleeding: without bleeding Gastritis type: unspecified gastritis Qualified Code(s): K29.70 - Gastritis, unspecified, without bleeding (3) Pulmonary embolism Acute cor pulmonale presence: unspecified Chronicity: unspecified Pulmonary embolism type: unspecified Qualified Code(s): I26.99 - Other pulmonary embolism without acute cor pulmonale (4) HTN (hypertension) Hypertension type: essential hypertension Qualified Code(s): I10 - Essential (primary) hypertension
[2021-03-15] MEDS: SODIUM CHLORIDE 0.9% 1000ML 1,000 ML IV SCH ×2 (11:33→21:38)
--- NOTE | 2021-03-15 11:36 | XRay Report ---
XR knee RT 1 or 2V routine HISTORY: 80 years-old Female Surgical Post Op right knee total joint arthroplasty COMPARISON: Right knee radiographs 08/13/2014 TECHNIQUE: 2 views the right knee FINDINGS: Right knee total joint arthroplasty and patella resurfacing. Anterior midline skin abdelrahman are noted in addition to expected postoperative soft tissue swelling and deep tissue air with surgical drainage catheter. No unexpected opaque foreign body. No acute fracture or malalignment. Arterial calcificati ons. IMPRESSION: Right knee total joint arthroplasty and patella resurfacing with expected postoperative c hanges. ACT 112: Negative or not required by law. The above report was generated using voice recognition software. It may contain grammatical, syntax o r spelling errors. Electronically signed by: Bryan Blum M.D. 03/15/2021 11:35 AM
[2021-03-15] MEDS: PANTOprazole 40 MG TAB PO SCH (14:33)
[2021-03-15] MEDS: ACETAMINOPHEN 500 MG TAB PO SCH ×2 (14:34→21:39)
[2021-03-15] MEDS: ceFAZolin 1000MG 1,000 MG/7.5 ML SYR IV SCH ×2 (14:34→21:41)
[2021-03-15] MEDS: DOCUSATE SODIUM 100 MG CAP PO SCH (20:09)
[2021-03-15] MEDS ORDERED: SENNA 8.6 MG TAB PO SCH (21:00)
[2021-03-16] MEDS: ACETAMINOPHEN 500 MG TAB PO SCH ×2 (05:11→13:57)
[2021-03-16 06:02] LABS: Hematocrit (blood only) 37.3 % (37-47); Hemoglobin 12.4 g/dL (12.0-16.0); Mean Corpuscular Hemoglobin 30.1 pg (25-34); Mean Corpuscular Hgb Conc 33.2 g/dL (32-36); Mean Corpuscular Volume 90.5 fL (80-100); Mean Platelet Volume 9.4 fL (7.4-10.4); Platelet Count 248 K/uL (130-400); RDW Coefficient of Variation 12.8 % (11.5-14.5); RDW Standard Deviation 42.1 fL (36.4-46.3); Red Blood Count 4.12 M/uL (4.2-5.4); White Blood Count 14.89 K/uL (4.8-10.8)
[2021-03-16 06:36] LABS: BUN Creatinine Ratio 30.4 (10-20); Calcium 8.8 mg/dl (8.5-10.1); Est GFR (African American) 72.9 ml/min; Est GFR (Non-African American) 62.9 ml/min; Potassium 4.8 mmol/L (3.5-5.1)
--- NOTE | 2021-03-16 07:28 | Orthopedic Progress Note ---
Date of Service March 16, 2021 Assessment & Plan (1) Primary osteoarthritis of right knee: POD#1 Right TKA -PT/OT -Pain management -DVT prophylaxis-SCDs, TEDs, Xarelto 10mg daily -AM labs-hemoglobin 12.4 from 14.1 preop . Leukocytosis likely due to surgical stress and preop steroids -D/C planning-home with HHPT likely today if PT goes well. Admission and Anticipated Discharge Date Admission Date: March 15, 2021 Subjective Patient is resting in bed comfortably, easily awoken. Pain well controlled. Hoping to go home today. Denies chest pain, sob, dizziness, headache, fever, chills. Review of Systems Review of Systems: All systems reviewed & are unremarkable except as noted in Subjective Physical Exam Physical Exam: Right knee: Dressing is c/d/i, hemovac in place. Toes mobile with good dorsiflexion. Distally sensation and n/v status intact. No calf tenderness Constitutional: well developed and well nourished; no acute distress Results & Data ([facility]) Vital Signs (Past 12 Hours) Vital Signs Temp Pulse Resp BP Pulse Ox 03/16/21 03:10 36.5 C 60 16 148/79 H 94 03/15/21 23:56 36.5 C 56 L 15 168/73 H 98 Laboratory Results Lab Results 02/27/21 02/27/21 02/27/21 Range/Units 09:05 09:05 09:05 WBC 7.65 (4.8-10.8) K/uL RBC 4.67 (4.2-5.4) M/uL Hgb 14.1 (12.0-16.0) g/dL Hct 42.7 (37-47) % MCV 91.4 (80-100) fL MCH 30.2 (25-34) pg MCHC 33.0 (32-36) g/dL RDW Std Deviation 43.3 (36.4-46.3) fL RDW Coeff of Sydni 13.0 (11.5-14.5) % Plt Count 240 (130-400) K/uL MPV 10.2 (7.4-10.4) fL Immature Gran % (Auto) 0.1 % Neut % (Auto) 69.7 % Lymph % (Auto) 17.4 % Glasscock % (Auto) 11.4 % Eos % (Auto) 1.3 % Baso % (Auto) 0.1 % Neut # (Auto) 5.33 (1.4-6.5) K/uL Lymph # (Auto) 1.33 (1.2-3.4) K/uL Glasscock # (Auto) 0.87 H (0.11-0.59) K/uL Eos # (Auto) 0.10 (0-0.5) K/uL Baso # (Auto) 0.01 (0-0.2) K/uL Immature Gran # (Auto) 0.01 (0.00-0.02) K/uL PT 9.8 (9.0-12.0) Seconds INR 1.0 (0.9-1.1) APTT 25.4 (21.0-31.0) Seconds PTT Ratio 1.0 Sodium (136-145) mmol/L Potassium (3.5-5.1) mmol/L Chloride (98-107) mmol/L Carbon Dioxide (21-32) mmol/L Anion Gap (3-11) BUN (7-18) mg/dl Creatinine (0.6-1.2) mg/dl Est Cr Clr Drug Dosing ml/min Est GFR ( Amer) ml/min Est GFR (Non-Af Amer) ml/min BUN/Creatinine Ratio (10-20) Glucose (70-99) mg/dl Estimat Average Glucose mg/dl Hemoglobin A1c (4.5-5.6) % Calcium (8.5-10.1) mg/dl Albumin (3.4-5.0) gm/dl Urine Color Urine Appearance (Clear) Urine pH (4.5-7.5) Ur Specific [employer] (1.000-1.030) Urine Protein (Negative) Urine Glucose (UA) (Negative) Urine Ketones (Negative) Urine Blood (Negative) Urine Nitrite (Negative) Urine Bilirubin (Negative) Urine Urobilinogen (Negative) Ur Leukocyte Esterase (Negative) Urine WBC (Auto) (0-5) /hpf Urine RBC (Auto) (0-4) /hpf U Hyaline Cast (Auto) (0-5) /lpf U Epithel Cells (Auto) (0-5) /lpf Urine Bacteria (Auto) (Negative) Urine Mucus (None Prsent) COVID-19 Eval Order SARS-CoV-2, RNA, NAAT (NEGATIVE) Blood Type A Negative Antibody Screen NEGATIVE 02/27/21 02/27/21 02/27/21 Range/Units 09:05 09:05 09:05 WBC (4.8-10.8) K/uL RBC (4.2-5.4) M/uL Hgb (12.0-16.0) g/dL Hct (37-47) % MCV (80-100) fL MCH (25-34) pg MCHC (32-36) g/dL RDW Std Deviation (36.4-46.3) fL RDW Coeff of Sydni (11.5-14.5) % Plt Count (130-400) K/uL MPV (7.4-10.4) fL Immature Gran % (Auto) % Neut % (Auto) % Lymph % (Auto) % Glasscock % (Auto) % Eos % (Auto) % Baso % (Auto) % Neut # (Auto) (1.4-6.5) K/uL Lymph # (Auto) (1.2-3.4) K/uL Glasscock # (Auto) (0.11-0.59) K/uL Eos # (Auto) (0-0.5) K/uL Baso # (Auto) (0-0.2) K/uL Immature Gran # (Auto) (0.00-0.02) K/uL PT (9.0-12.0) Seconds INR (0.9-1.1) APTT (21.0-31.0) Seconds PTT Ratio Sodium 140 (136-145) mmol/L Potassium 4.8 (3.5-5.1) mmol/L Chloride 107 (98-107) mmol/L Carbon Dioxide 30 (21-32) mmol/L Anion Gap 3.0 (3-11) BUN 29 H (7-18) mg/dl Creatinine 0.87 (0.6-1.2) mg/dl Est Cr Clr Drug Dosing 53.2 ml/min Est GFR ( Amer) 74.0 ml/min Est GFR (Non-Af Amer) 63.8 ml/min BUN/Creatinine Ratio 33.4 H (10-20) Glucose 80 (70-99) mg/dl Estimat Average Glucose 108 mg/dl Hemoglobin A1c 5.4 (4.5-5.6) % Calcium 9.1 (8.5-10.1) mg/dl Albumin 3.2 L (3.4-5.0) gm/dl Urine Color Yellow Urine Appearance Clear (Clear) Urine pH 6.0 (4.5-7.5) Ur Specific [employer] 1.021 (1.000-1.030) Urine Protein 3+ H (Negative) Urine Glucose (UA) Negative (Negative) Urine Ketones Trace H (Negative) Urine Blood Negative (Negative) Urine Nitrite Negative (Negative) Urine Bilirubin Negative (Negative) Urine Urobilinogen Negative (Negative) Ur Leukocyte Esterase Negative (Negative) Urine WBC (Auto) 10-30 H (0-5) /hpf Urine RBC (Auto) 0-4 (0-4) /hpf U Hyaline Cast (Auto) 1-5 (0-5) /lpf U Epithel Cells (Auto) >30 H (0-5) /lpf Urine Bacteria (Auto) 1+ H (Negative) Urine Mucus Present A (None Prsent) COVID-19 Eval Order SARS-CoV-2, RNA, NAAT (NEGATIVE) Blood Type Antibody Screen 03/15/21 03/15/21 03/16/21 Range/Units 05:19 05:19 05:47 WBC 14.89 H (4.8-10.8) K/uL RBC 4.12 L (4.2-5.4) M/uL Hgb 12.4 (12.0-16.0) g/dL Hct 37.3 (37-47) % MCV 90.5 (80-100) fL MCH 30.1 (25-34) pg MCHC 33.2 (32-36) g/dL RDW Std Deviation 42.1 (36.4-46.3) fL RDW Coeff of Sydni 12.8 (11.5-14.5) % Plt Count 248 (130-400) K/uL MPV 9.4 (7.4-10.4) fL Immature Gran % (Auto) % Neut % (Auto) % Lymph % (Auto) % Glasscock % (Auto) % Eos % (Auto) % Baso % (Auto) % Neut # (Auto) (1.4-6.5) K/uL Lymph # (Auto) (1.2-3.4) K/uL Glasscock # (Auto) (0.11-0.59) K/uL Eos # (Auto) (0-0.5) K/uL Baso # (Auto) (0-0.2) K/uL Immature Gran # (Auto) (0.00-0.02) K/uL PT (9.0-12.0) Seconds INR (0.9-1.1) APTT (21.0-31.0) Seconds PTT Ratio Sodium (136-145) mmol/L Potassium (3.5-5.1) mmol/L Chloride (98-107) mmol/L Carbon Dioxide (21-32) mmol/L Anion Gap (3-11) BUN (7-18) mg/dl Creatinine (0.6-1.2) mg/dl Est Cr Clr Drug Dosing ml/min Est GFR ( Amer) ml/min Est GFR (Non-Af Amer) ml/min BUN/Creatinine Ratio (10-20) Glucose (70-99) mg/dl Estimat Average Glucose mg/dl Hemoglobin A1c (4.5-5.6) % Calcium (8.5-10.1) mg/dl Albumin (3.4-5.0) gm/dl Urine Color Urine Appearance (Clear) Urine pH (4.5-7.5) Ur Specific [employer] (1.000-1.030) Urine Protein (Negative) Urine Glucose (UA) (Negative) Urine Ketones (Negative) Urine Blood (Negative) Urine Nitrite (Negative) Urine Bilirubin (Negative) Urine Urobilinogen (Negative) Ur Leukocyte Esterase (Negative) Urine WBC (Auto) (0-5) /hpf Urine RBC (Auto) (0-4) /hpf U Hyaline Cast (Auto) (0-5) /lpf U Epithel Cells (Auto) (0-5) /lpf Urine Bacteria (Auto) (Negative) Urine Mucus (None Prsent) COVID-19 [facility] [place], RNA, NAAT NEGATIVE (NEGATIVE) Blood Type Antibody Screen 03/16/21 Range/Units 05:47 WBC (4.8-10.8) K/uL RBC (4.2-5.4) M/uL Hgb (12.0-16.0) g/dL Hct (37-47) % MCV (80-100) fL MCH (25-34) pg MCHC (32-36) g/dL RDW Std Deviation (36.4-46.3) fL RDW Coeff of Sydni (11.5-14.5) % Plt Count (130-400) K/uL MPV (7.4-10.4) fL Immature Gran % (Auto) % Neut % (Auto) % Lymph % (Auto) % Glasscock % (Auto) % Eos % (Auto) % Baso % (Auto) % Neut # (Auto) (1.4-6.5) K/uL Lymph # (Auto) (1.2-3.4) K/uL Glasscock # (Auto) (0.11-0.59) K/uL Eos # (Auto) (0-0.5) K/uL Baso # (Auto) (0-0.2) K/uL Immature Gran # (Auto) (0.00-0.02) K/uL PT (9.0-12.0) Seconds INR (0.9-1.1) APTT (21.0-31.0) Seconds PTT Ratio Sodium 142 (136-145) mmol/L Potassium 4.8 (3.5-5.1) mmol/L Chloride 113 H (98-107) mmol/L Carbon Dioxide 25 (21-32) mmol/L Anion Gap 4.0 (3-11) BUN 27 H (7-18) mg/dl Creatinine 0.88 (0.6-1.2) mg/dl Est Cr Clr Drug Dosing 53.0 ml/min Est GFR ( Amer) 72.9 ml/min Est GFR (Non-Af Amer) 62.9 ml/min BUN/Creatinine Ratio 30.4 H (10-20) Glucose 105 H (70-99) mg/dl Estimat Average Glucose mg/dl Hemoglobin A1c (4.5-5.6) % Calcium 8.8 (8.5-10.1) mg/dl Albumin (3.4-5.0) gm/dl Urine Color Urine Appearance (Clear) Urine pH (4.5-7.5) Ur Specific [employer] (1.000-1.030) Urine Protein (Negative) Urine Glucose (UA) (Negative) Urine Ketones (Negative) Urine Blood (Negative) Urine Nitrite (Negative) Urine Bilirubin (Negative) Urine Urobilinogen (Negative) Ur Leukocyte Esterase (Negative) Urine WBC (Auto) (0-5) /hpf Urine RBC (Auto) (0-4) /hpf U Hyaline Cast (Auto) (0-5) /lpf U Epithel Cells (Auto) (0-5) /lpf Urine Bacteria (Auto) (Negative) Urine Mucus (None Prsent) COVID-19 Eval Order SARS-CoV-2, RNA, NAAT (NEGATIVE) Blood Type Antibody Screen
[2021-03-16] MEDS: HYDROCODONE/ACETAMOPHEN 5/325MG TAB PO PRN ×3 (08:26→17:00)
[2021-03-16] MEDS: PANTOprazole 40 MG TAB PO SCH (08:28)
[2021-03-16] MEDS: DOCUSATE SODIUM 100 MG CAP PO SCH (08:28)
[2021-03-16] MEDS ORDERED: amLODIPine BESYLATE 5 MG TAB PO SCH (09:00)
[2021-03-16] MEDS ORDERED: [UNRECOGNIZED DRUG - OTHER] PO SCH (09:00)
[2021-03-16] MEDS ORDERED: NON-FORMULARY MEDICATION (Potassium 99 mg Tablet) PO SCH (09:00)
[2021-03-16] MEDS ORDERED: MULTIVITAMIN TAB PO SCH (09:00)
[2021-03-16] MEDS ORDERED: RIVAROXABAN 10 MG TABLET PO SCH (09:00)
[2021-03-16] MEDS ORDERED: [UNRECOGNIZED DRUG - OTHER] PO SCH (09:00)
--- NOTE | 2021-03-17 22:46 | Discharge Summary ---
Date of Service March 17, 2021 Admission HPI Per Admitting Provider 80 year old female with PMHx significant for HTN, Ovarian Ca currently undergoing chemo, GERD, DVT/PE who presents with ongoing right knee pain. Pain is interfering with her ability to carry out normal daily and leisure activity. She has failed conservative measures including injections and therapy. She previously underwent left knee replacement. She would like to proceed with surgical intervention. Patient denies headaches, sweats, fevers, chills, double vision, blurred vision, cough, sore throat, dysphagia, chest pain, sob, wheezing, n/v/d/c, numbness, tingling, fatigue, urinary symptoms, mood disorders. ROS positive for right knee pain and stiffness. Admission Exam Per Admitting Provider Constitutional: well developed and well nourished; no acute distress Eyes: PERRL, conjunctivae normal, anicteric sclerae ENMT: external ear and nose normal, oropharynx normal Neck: trachea midline, no thyromegaly Respiratory: normal respiratory effort, lungs clear to auscultation Cardiovascular: RRR, no murmur, no edema Musculoskeletal: Right knee: Varus alignment. Mild effusion. tenderness medial joint line. Positive Arnol's. Stable to valgus and varus stress. Painful ROM. 0-125 Skin: no rashes, warm and dry Neurologic: patellar DTR's 2+ bilat, sensation intact Psychiatric: A+Ox3, euthymic affect Principal Diagnosis Right knee osteoarthritis Discharge Exam Constitutional well developed and well nourished; no acute distress Eyes PERRL, conjunctivae normal, anicteric sclerae ENMT external ear and nose normal, oropharynx normal Neck trachea midline, no thyromegaly Respiratory normal respiratory effort, lungs clear to auscultation Cardiovascular RRR, no murmur, no edema Skin no rashes, warm and dry Neurologic patellar DTR's 2+ bilat, sensation intact Psychiatric A+Ox3, euthymic affect Discharge Data Allergies Allergy/AdvReac Type Severity Reaction Status Date / Time oxaprozin Allergy Intermediate FEET Verified 03/15/21 05:35 SWELLING, SKIN PEELING piperacillin Allergy Intermediate hives Verified 03/15/21 05:35 tazobactam Allergy Intermediate hives Verified 03/15/21 05:35 Consultations 03/09/21 15:30 Consult Hospitalist Routine Procedures Performed Operation Date: 03/15/21 07:15 Actual Procedures p Right Total Knee Arthroplasty(Right) - Keith Askew MD Ordered Studies 03/15/21 05:00 US - OR guided needle placemen Routine Hospital Course (1) Primary osteoarthritis of right knee: Patient presented for same day admission following right total knee arthroplasty on 03/15/21. She tolerated procedure well. The Patient had an uneventful hospital course. Post-operatively, her activity was progressed and well tolerated. They participated in PT with ambulation distance of 375 feet. ROM of operative knee reached 92 degrees. Labs remained stable- lowest hemoglobin recorded: 12.[address] Cristo Marie of medical service was consulted for medical management during admission. Pain controlled on oral medications. Please refer to daily progress notes and PT notes for complete details. After exam on 03/16/21, patient was felt to be stable for discharge home with home health PT. Patient will f/u in the office in about 2 weeks for further evaluation including x-rays and incision check, sooner if having any issues or concerns. POD#1 Right TKA -PT/OT -Pain management -DVT prophylaxis-SCDs, TEDs, Xarelto 10mg daily -AM labs-hemoglobin 12.4 from 14.1 preop . Leukocytosis likely due to surgical stress and preop steroids -D/C planning-home with HHPT likely today if PT goes well. Total Time Total Time Spent Total Time Spent (In Minutes): 20 Discharge Plan Discharge Items Patient Disposition: Home - Home Health Services Reason For Visit: Unilateral Primary Osteoarthritis Discharge Diagnosis: Right knee osteoarthritis Activity: Per Instructions section Non-emergency contact: Surgeon Call non-emergency contact if: you have any medication questions, your pain is not controlled, your pain is worsening, your pain is concerning for you, you have a fever, your temperature is above 101, your wound has increased redness and your wound has increased drainage Follow-up/Referrals: Adelso Ruiz MD [Primary Care Provider] - Diet: Regular Addtl Attending Provider Instructions: ACTIVITY RECOMMENDATIONS: SELF CARE INSTRUCTIONS AFTER TOTAL KNEE REPLACEMENT A. You may need to continue a physical therapy program after discharge from the hospital. There are several options available to you. Your doctor will assist you in selecting the best one for you. 1. An out-patient facility 2 to 3 times a week for therapy or home therapy. 2. Continue working on all exercises taught to you in the hospital. Your goals should be to increase bending of your knee to 90 degrees and beyond and to fully straighten your knee. B. You may progress at your own pace from walking with a walker or crutches to a cane; then to no assistive devices. C. Make walking a part of your daily routine. Be up as much as comfortable with rest periods throughout the day. Rest with leg elevation is very important. Use the ice wrap frequently for the first 3-4 weeks. D. There are no restrictions on activities. You may ride in a car, shop, participate in finish specialist and all social activities. E. Wear the long elastic stockings (HEENA hose) 20 hours a day for 2 weeks after surgery. They can be removed several times a day for laundering and for a bath. F. You may shower, no tub baths until cleared by your doctor. SPECIAL CARE INSTRUCTIONS: VERY IMPORTANT TO READ AND REVIEW A. There are a few signs you need to watch for after you are home. Call [facility] if you notice any of the followin. Increased severe knee pain. Some pain is expected especially when you exercise. 2. Increased swelling in your leg or knee; pain or swelling of the calf muscle in either lower leg. 3. Any fluid drainage from the incision. 4. Shortness of breath or chest pain. B. Please call [facility] at if you have any concerns or questions about your operation or recovery. The doctor or his nurse will return your call promptly. C. You must take antibiotics before dental work, bladder, bowel or other surgery. Your doctor will provide you with a permanent care to carry describing this precaution. IMPORTANT: * REMEMBER TO TAKE ASPIRIN, 81 MG, TWICE DAILY FOR 4 WEEKS UNLESS OTHERWISE DIRECTED. THIS IS YOUR BLOOD THINNER. * HIGH RISK PATIENTS MAY BE PRESCRIBED A STRONGER BLOOD THINNER. THIS WILL BE PROVIDED AT DISCHARGE. * CALL IF INCREASED PAIN, REDNESS, DRAINAGE OR FEVER GREATER THAT 101. * WEAR HEENA HOSE 20 HOURS PER DAY FOR 2 WEEKS. This is a large suction dressing covering your incision. This will help pull any excess drainage from the wound and allow your incision to heal properly. You may shower with this if you can keep the unit outside of the shower. If any bleeding or leakage is noted please call your doctor's office. This will remain on your incision for 7 days and then should be removed. This can be done yourself or by the home nursing staff if applicable. The entire unit is disposable once removed. Once removed, keep incision clean and dry. If redness or drainage is noted, please call your surgeon. IF INCISION IS LEAKING THROUGH DRESSING, CALL THE OFFICE . Home health to remove hemovac drain tomorrow FOLLOW UP VISIT: If appointment is not already scheduled: Please call [facility] to make a follow-up appointment for 2 weeks after your surgery at . Stand-Alone Forms: My [facility] Unocoin, Opioid Pain Management, Smoking Cessation Medications and DC Order Prescriptions: New hydrocodone-acetaminophen 5-325 mg Tablet 1 - 2 tab PO .Q4h-6h MDD 6 PRN (Reason: pain) Qty: 30 RF: 0 Xarelto 10 mg Tablet 10 mg PO DAILY Qty: 30 RF: 0 cefadroxil 500 mg capsule 500 mg PO BID Qty: 14 RF: 0 Continued gabapentin [Neurontin] 100 mg capsule 100 mg PO HS PRN (Reason: neuropathy) RF: 0 amlodipine 5 mg Tablet 5 mg PO QAM RF: 0 potassium 99 mg Tablet 99 mg PO QAM RF: 0 ascorbate calcium-bioflavonoid 1,000-200 mg Tablet Extended Release 1 tab PO QAM RF: 0 calcium carb-D3-mag ox-zinc ox 333 mg-133 unit -133 mg-5 mg Tablet 1 tab PO QAM RF: 0 Discontinued naproxen sodium 220 mg Tablet 440 mg PO BID PRN (Reason: Pain) RF: 0 Discharge Orders: Discharge Order (Routine); Ordered 03/16/21 Ordered By: Cristopher Sanchez/Other Patient Handouts: Preventing Deep Vein Thrombosis Admission Data Admit Date/Time: 03/15/21 09:49 Attending Provider: Keith Askew Admit Provider: Keith Askew Primary Care Provider: Adelso Ruiz Other Providers: Cristo Marie ; [facility],Home Healthcare Other Interventions: Discharge Summary Assessment (RN) Last Done: 03/16/21 08:04
== END 2021-03-16 18:01 | disposition home health service (06) ==
LOC: ASU 05:07 → 3E 05:07

== ENCOUNTER 2024-03-21 22:40 | Inpatient (IN) ==
[2024-03-21 23:26] LABS: Hematocrit (blood only) 23.5 % (37.0-47.0); Hemoglobin 7.7 g/dl (12.0-16.0); Mean Corpuscular Hgb Conc 32.8 g/dL (32.0-36.0); Mean Corpuscular Volume 91.4 fL (80.0-100.0); Mean Platelet Volume 10.9 fL (9.4-12.4); Platelet Count 59 K/uL (130-400); RDW Coefficient of Variation 15.6 % (11.5-14.5); RDW Standard Deviation 51.3 fL (36.4-46.3); Red Blood Count 2.57 M/uL (4.20-5.40); White Blood Count 4.65 K/ul (4.8-10.8)
[2024-03-21 23:37] LABS: Alanine Aminotransferase 26 U/L (7-52); Albumin Level 2.9 gm/dl (3.4-5.0); Alkaline Phosphatase 63 U/L (34-104); Anion Gap 7 (3-11); Aspartate Aminotransferase 40 U/L (13-39); BUN Creatinine Ratio 20.9 (10-20); Bilirubin,Total 0.6 mg/dl (0.2-1.0); Blood Urea Nitrogen 33 mg/dl (6-23); Calcium 7.4 mg/dl (8.6-10.3); Carbon Dioxide 22 mmol/L (21-32); Chloride 103 mmol/L (98-107); Creatinine Clr Calc Pharmacy 27.9 ml/min; Est GFR (African American) 35.2 ml/min; Est GFR (Non-African American) 30.4 ml/min; Globulin 2.8 gm/dl (2.5-4.0); Glucose 103 mg/dl (70-99(Fasting)); Potassium 3.2 mmol/L (3.5-5.1); Sodium 132 mmol/L (136-145); Total Protein 5.7 gm/dl (6.0-8.3)
[2024-03-21 23:42] LABS: Dohle Bodies 1+; Immature Granulocytes # (auto) 0.02 K/uL (0.01-0.20); Immature Granulocytes % (auto) 0.4 %; Lymphocytes # (auto) 0.42 K/uL (1.20-3.40); Monocytes # (auto) 0.32 K/uL (0.11-0.59); Monocytes % (auto) 6.9 %; Neutrophils # (auto) 3.89 K/uL (1.40-6.50); Neutrophils % (auto) 83.7 %
[2024-03-21 23:47] LABS: Partial Thromboplastin Ratio 1.2; Partial Thromboplastin Time 33 Seconds (21-31)
--- NOTE | 2024-03-22 00:10 | Emergency Department Note ---
Impression & Plan Acute hypotension, Anemia Admit to the [facility] ED Provider Note NAME: ANH WEBSTER AGE: 83 SEX: Female INFORMANT: Patient and her daughter ED PROVIDER(S): Edith Arthur DO CHIEF COMPLAINT: Hypotension and weakness PLAN: Disposition: Admit to the [facility] MEDICAL DECISION MAKING: This is a 83-year-old female patient with history of ovarian cancer on chemotherapy who presents to the emergency department with episodes of hypotension and weakness. Over the past 1 week, the patient has had episodes of extreme weakness and lightheadedness. She had increased falls. She seemed to be doing better midweek but this evening, the patient slid off the couch and was not able to sit upright. The patient was noted to be significantly hypotensive upon presentation. She appears dehydrated on physical exam. She has noted to be significantly anemic with a hemoglobin of 7.7. Last noted hemoglobin was 9.7 just 3 days ago. Renal function is at his baseline with a BUN of 33 and a creatinine of 1.58. Sodium was 132 potassium was 3.2. Platelet count is at 59,000 up from 42,000. Patient describes some constipation. I did Hemoccult test her stool which was brown and it was heme-negative. Patient's blood pressure did respond positive lead to IV bolus of crystalloids. I discussed the case with the [facility] and they will evaluate for further inpatient care. Care/management discussed with: day spa manager and [facility] Triage Nursing notes: reviewed and agree with them. Vital Signs: reviewed and remarkable for hypotension Additional History obtained from: The daughter is at the bedside Chronic Medical/Social Conditions affecting care: On chemotherapy for ovarian cancer Differential Diagnosis: GI bleed, hypotension, hyponatremia, thrombocytopenia, anemia, medication side effects Diagnostics, independently interpreted by me: ECG: Sinus tachycardia at a rate of [address] segment elevation or signs of ischemia. There is no ectopy. Cardiac Monitoring: Normal sinus rhythm at a rate of 98 Imaging studies: Portable chest x-ray-as per my independent interpretation-no acute pulmonary opacities or pleural effusions HPI: 83 year old Female arrives for evaluation of weakness and lightheadedness. Patient has a history of ovarian cancer and has become increasingly weak over the past 1 week. She has episodes of hypotension and lightheadedness. Patient became significantly weak tonight to the point that she slid off the couch and roommates tried to assist her back up. She was unable to even sit upright on the couch. She was not able to stand. PAST MEDICAL HISTORY: See Below, PAST SURGICAL HISTORY: See Below, SOCIAL HISTORY: See Below, HOME MEDICATIONS: See list ALLERGIES: See list VITALS: See Below PHYSICAL EXAMINATION: HEENT: Head - normocephalic and atraumatic. Pupils are equal, round, and reactive to light. Extraocular eye muscles are intact, and sclera are anicteric. Nose - moist nasal mucosa without discharge. Mouth - moist buccal mucosa. Oropharynx is nonerythematous and there is no tonsillar exudate or edema noted. Neck: Supple; no JVD, nuchal rigidity, cervical lymphadenopathy, or auscultated bruits. Heart: Regular rate and rhythm. There is a normal S1 and S2 with no murmurs, clicks, or gallops appreciated. Lungs: Clear to auscultation bilaterally with no wheezes, rales, or rhonchi. Abdomen: Soft, completely nontender, nondistended, with good bowel sounds. There are no palpable pulsatile masses or hepatosplenomegaly. There is no guarding, rigidity, or rebound noted. Extremities: No evidence of cyanosis, clubbing, or edema. There are easily palpable peripheral pulses. Skin: warm and dry with good turgor and no rashes. Rectal exam: Brown stool that was heme-negative Emergency department course: The patient was evaluated in room B-7. A complete history and physical was performed. Previous electronic medical records were reviewed. An IV lock is been initiated and labs were drawn as above. The patient remains hypotensive. She received a liter of normal saline solution wide open. A twelve-lead EKG was obtained as described above. An order was placed for continuous cardiac monitoring. The patient was in a normal sinus rhythm at a rate of 98. She was typed and screened. Blood pressure did finally respond to crystalloids. Urinalysis was obtained and was negative for any infection. Past Med/Surg History Problem List (Updated 03/22/24 @ 17:22 by Edith Arthur DO) Anemia (Acute) Acute hypotension (Acute) Anemia Weakness Microscopic hematuria Hypothyroidism Urinary frequency Stress incontinence Nocturia HTN (hypertension) Primary osteoarthritis of right knee Pelvic pain Medical History UTI (urinary tract infection) dx 11/19 /asymptomatic/abx tx completed. Port-A-Cath in place High blood pressure ed eval within past couple months/bp medication dose changes since. Thyroid disease unknown details. Ovarian cancer dx 2015/chemo ever since. Off chemo past 9 weeks/ awaiting scheduling of chemo for upcoming/estimated to start December 25 2023. [facility]. Overactive bladder History of DVT (deep vein thrombosis) ~2016, PE/DVT treated at [facility]. Post-op after hysterectomy. 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 controlled currently, only takes gabapentin as needed. Hiatal hernia Hx: UTI (urinary tract infection) Surgical History History of total right knee replacement History of vascular access device left placed 3 yr ago/power port S/P insertion of IVC (inferior vena caval) filter 2016, [facility] History of colonoscopy H/O arthroscopic knee surgery bilateral History of left knee replacement H/O abdominal hysterectomy (~2016) [facility] with BSO History of back surgery (~2015) to removal blood clot from spinal column Family History Other No family history of adverse response to anesthesia Social History Smoking Status: Never smoker Second Hand Exposure: No; Do You Dip or Chew Tobacco: No; Hx Alcohol Use: No Hx Substance Use: No Preferred Language: Kazakh Communication Ability: Effective Orthotic Assistant Required: No Beliefs That Will Affect Care: None marital status: Current Living Situation: Alone current occupational status: retired How many Children do You have: 2 Feels Safe at Home: Yes Assistive Devices: Cane and Walker Allergies Allergies Allergy/AdvReac Type Severity Reaction Status Date / Time piperacillin Allergy Intermediate hives Verified 03/22/24 00:58 tazobactam Allergy Intermediate hives Verified 03/22/24 00:58 oxaprozin AdvReac Intermediate FEET Verified 03/22/24 00:58 SWELLING, SKIN PEELING Home Meds Home Medications Medication Instructions Recorded Confirmed amlodipine 5 mg tablet 5 mg PO QAM 02/24/21 03/22/24 lisinopril 5 mg tablet 40 mg PO HS 10/16/22 03/22/24 acetaminophen 650 mg 650 mg PO UD PRN aches and pains 03/13/23 03/22/24 tablet,extended release ascorbate calcium (vitamin C) 500 1 g PO QAM 03/13/23 03/22/24 mg tablet gabapentin 100 mg capsule 300 mg PO TID neuropathy 03/13/23 03/22/24 (Neurontin) Eye Drops For Chemo 1 dose UD PRN when on Elahere 12/06/23 03/22/24 [id number]-[id number] tablet 1 tab PO QAM 12/06/23 03/22/24 hydrochlorothiazide 25 mg tablet 25 mg PO QAM 12/06/23 03/22/24 mirvetuximab soravtansine-gynx 5 0 mg IV UD 12/06/23 03/22/24 mg/mL intravenous solution ([facility]) propylene glycol (PF) 0.6 % eye 1 drp ophthalmic (eye) UD PRN when 12/06/23 03/22/24 drops (Systane Complete PF) on [facility] Previous Rx's Medication Instructions Recorded phenazopyridine 200 mg tablet 200 mg PO Q8H PRN pain #10 tabs 12/16/23 (Pyridium) levothyroxine 150 mcg tablet 150 mcg PO DAILY #30 tabs 03/11/24 Results & Data (ED) Vital Signs Vital Signs - 24 hr 03/21/24 22:46 03/21/24 22:47 03/21/24 23:36 Temperature 37.5 C Temperature Source Oral Pulse Rate 103 H 99 H 95 H Pulse Rate from SpO2 Sensor 97 H Respiratory Rate 18 16 Respiratory Effort / Characteristics Non-Labored Spontaneous Respiratory Depth Normal Respiratory Pattern Regular Blood Pressure 90/54 L 114/64 Blood Pressure Mean 66 80 Pulse Oximetry 98 96 Oxygen Delivery Method Room Air Nasal Cannula Oxygen Flow Rate 2 Sepsis Recent Fever Within 48 Hours Yes Sepsis New/Unexplained Change in Mental Status N/A Sepsis Action Taken by Nursing No Action Required 03/22/24 00:30 Temperature Temperature Source Pulse Rate 101 H Pulse Rate from SpO2 Sensor 102 H Respiratory Rate 16 Respiratory Effort / Characteristics Respiratory Depth Respiratory Pattern Blood Pressure 117/65 Blood Pressure Mean 82 Pulse Oximetry 95 Oxygen Delivery Method Nasal Cannula Oxygen Flow Rate 2 Sepsis Recent Fever Within 48 Hours Sepsis New/Unexplained Change in Mental Status Sepsis Action Taken by Nursing Laboratory Data 03/22/24 08:22 03/22/24 08:22 Lab Results 03/21/24 03/22/24 Range/Units 22:58 00:26 WBC 4.65 L (4.8-10.8) K/ul RBC 2.57 L (4.20-5.40) M/uL Hgb 7.7 L (12.0-16.0) g/dl Hct 23.5 L (37.0-47.0) % MCV 91.4 (80.0-100.0) fL MCH 30.0 (25.0-34.0) pg MCHC 32.8 (32.0-36.0) g/dL RDW Std Deviation 51.3 H (36.4-46.3) fL RDW Coeff of Sydni 15.6 H (11.5-14.5) % Plt Count 59 L (130-400) K/uL MPV 10.9 (9.4-12.4) fL Immature Gran % (Auto) 0.4 % Neut % (Auto) 83.7 % Lymph % (Auto) 9.0 % Gilchrist % (Auto) 6.9 % Eos % (Auto) 0.0 % Baso % (Auto) 0.0 % Reticulocyte % (Auto) 1.03 (0.50-2.00) % Neut # (Auto) 3.89 (1.40-6.50) K/uL Lymph # (Auto) 0.42 L (1.20-3.40) K/uL Gilchrist # (Auto) 0.32 (0.11-0.59) K/uL Eos # (Auto) 0.00 (0.00-0.50) K/uL Baso # (Auto) 0.00 (0.00-0.20) K/uL Reticulocyte # 0.030 (0.020-0.100) 10^6/uL Immature Gran # (Auto) 0.02 (0.01-0.20) K/uL Dohle Bodies 1+ PT 11.0 (9.0-12.0) Seconds INR 1.0 (0.9-1.1) APTT 33 H (21-31) Seconds PTT Ratio 1.2 Sodium 132 L (136-145) mmol/L Potassium 3.2 L (3.5-5.1) mmol/L Chloride 103 (98-107) mmol/L Carbon Dioxide 22 (21-32) mmol/L Anion Gap 7 (3-11) BUN 33 H (6-23) mg/dl Creatinine 1.58 H (0.6-1.2) mg/dl Est Cr Clr Drug Dosing 27.9 ml/min Est GFR ( Amer) 35.2 ml/min Est GFR (Non-Af Amer) 30.4 ml/min BUN/Creatinine Ratio 20.9 H (10-20) Glucose 103 H (70-99(Fasting)) mg/dl Calcium 7.4 L (8.6-10.3) mg/dl Phosphorus 2.8 (2.5-4.9) mg/dl Magnesium 1.7 (1.7-2.4) mg/dl Iron < 10 L (35-150) mcg/dl TIBC TNP Unsaturated IBC 164 (155-355) mcg/dl Transferrin % Sat TNP Total Bilirubin 0.6 (0.2-1.0) mg/dl AST 40 H (13-39) U/L ALT 26 (7-52) U/L Alkaline Phosphatase 63 (34-104) U/L Lactate Dehydrogenase 206 (86-244) U/L Total Protein 5.7 L (6.0-8.3) gm/dl Albumin 2.9 L (3.4-5.0) gm/dl Globulin 2.8 (2.5-4.0) gm/dl Albumin/Globulin Ratio 1.0 (0.9-2) TSH 1.451 (0.300-4.500) uIu/ml Random Cortisol 22.91 mcg/dl Blood Type A Negative Antibody Screen NEGATIVE Administered Medications Acetaminophen (Acetaminophen 325 Mg Tab) 650 mg PO Q4H PRN PRN Reason: pain/fever Stop: 04/21/24 02:29 Last Admin: 03/22/24 15:44 Dose: 650 mg Documented By: Admin: 03/22/24 11:14 Dose: 650 mg Documented By: DANIAL Gabapentin (Gabapentin 300 Mg Cap) 300 mg PO TID ERIC Stop: 04/21/24 08:59 Last Admin: 03/22/24 13:25 Dose: 300 mg Documented By: Admin: 03/22/24 08:30 Dose: 300 mg Documented By: DANIAL Sodium Chloride (Nss) 1,000 mls @ 80 mls/hr IV .[id number] ERIC Stop: 04/21/24 15:44 Last Admin: 03/22/24 16:24 Dose: 80 mls/hr Documented By: MERARI Cefepime HCl 2,000 mg/ Syringe 20 mls @ 5 mls/min IV Q12H ERIC; Protocol Stop: 03/24/24 15:59 Last Admin: 03/22/24 16:48 Dose: 5 mls/min Documented By: MERARI Vancomycin HCl 1,750 mg/ (Sodium Chloride) 535 mls @ 200 mls/hr IV TODAY@1630 [facility] Stop: 03/22/24 19:11 Last Admin: 03/22/24 16:48 Dose: 200 mls/hr Documented By: MERARI Levothyroxine Sodium (Levothyroxine Sodium 150 Mcg Tablet) 150 mcg PO DAILYBB [facility] Stop: 04/21/24 06:29 Last Admin: 03/22/24 07:38 Dose: 150 mcg Documented By: DANIAL Discontinued Medications Sodium Chloride (Nss) 500 mls @ 125 mls/hr IV .Q4H ERIC Stop: 04/21/24 00:14 Last Infusion: 03/22/24 02:39 Dose: Infused Documented By: Admin: 03/22/24 00:52 Dose: 125 mls/hr Documented By: FAUSTINO Potassium Chloride (Potassium Chloride Crtab 20 Meq Tabcr) 60 meq PO NOW STA Stop: 03/22/24 02:31 Last Admin: 03/22/24 04:24 Dose: 60 meq Documented By: CHUNG Imaging Data Radiologist's Impression: Chest X-Ray 03/21/24 23:08 SINGLE VIEW CHEST CLINICAL HISTORY: Generalized weakness. FINDINGS: An AP, portable, upright chest radiograph is compared to study dated 09/26/2023. Correlation is made with chest CT dated 03/06/2024. A left subclavian central venous infusion port is unchanged in position. The heart is enlarged noting atherosclerotic calcification of the thoracic aorta. The pulmonary vasculature is noncongested. Chronic interstitial thickening is similar to previous. There is bibasilar scarring/atelectasis. No airspace consolidation or large pleural effusion is identified. Small pulmonary nodules are unchanged and were better assessed on the recent chest CT. No pneumothorax is seen. The skeletal structures are osteopenic. The bony thorax is grossly intact. Advanced arthritic change is seen in the shoulders. Calcified joint bodies are noted on the left. IMPRESSION: Cardiomegaly with no acute cardiopulmonary abnormality identified. ACT 112: Negative or not required by law. Electronically signed by: Oliver Schofield M.D. 03/22/2024 8:05 AM Discharge Plan Visit Data Chief Complaint: Hypotension Stated Complaint: Hypotension, Weakness ED Provider: Edith Arthur Discharge Problem: Acute hypotension, Anemia Patient Disposition: Admitted As Inpatient Discharge Instructions Interventions: ED Discharge Assessment Last Done: 03/22/24 02:30
[2024-03-22 00:19] LABS: Reticulocyte % 1.03 % (0.50-2.00)
--- NOTE | 2024-03-22 00:40 | History & Physical Report ---
Date of Service March 22, 2024 Assessment & Plan (1) Weakness: Plan: 83yo female with ovarian cancer on chemotherapy presenting with generalized weakness and hypotension. Patient with Hgb=7.7 on arrival (was 9.7 on 03/18/24). No obvious source of infection Mildly worsening renal function may be contributing as well. Mild hypokalemia -Admit to medical with telemetry -Gentle IVF -K repletion -PT/OT evaluation (2) Anemia: Plan: Patient with pancytopenia - possibly secondary to chemotherapy? cancer? Significant drop in H/H may be contributing to her symptoms of weakness. No active bleeding identified -Check iron studies, reticulocyte count and peripheral smear -Transfuse for Hgb < 7 - consent obtained (3) Hypothyroidism: Plan: Chronic -Continue Synthroid (4) HTN (hypertension): Plan: Patient with hypotension on arrival -Hold HCTZ and Lisinopril -Hold Amlodipine -Monitor (5) Ovarian cancer: History of Present Illness Chief Complaint: weakness Primary Care Provider: Nicol Tobar MD Simran Lopez is an 83yo female with history of ovarian cancer on chemotherapy (last treatment 3 weeks ago. Patient follows with Dr. Evans in [place] [employer]), HTN, prior VTE presenting with fatigue. She has had weakness and fatigue ongoing x 1 week as well as decreased blood pressure. She is previously on blood pressure medications but has not been takin it for the last week. This evening patient slid from the couch and was unable to get up due to generalized weakness. Her blood pressure was found to be low at 90/60 and she was feeling weak and lightheaded. She denies chest pain, cough SOB, congestion, abdominal pain, nausea, vomiting, diarrhea. She possibly had a fever this afternoon. No melena, hematochezia, hematuria. Reports adequate diet with ok intake. In the ER she is afebrile, hypotensive on arrival at 90/54 which improved after IVF - now 121/75 ER Course: NSS x 500 Allergies Allergy/AdvReac Type Severity Reaction Status Date / Time piperacillin Allergy Intermediate hives Verified 03/22/24 00:58 tazobactam Allergy Intermediate hives Verified 03/22/24 00:58 oxaprozin AdvReac Intermediate FEET Verified 03/22/24 00:58 SWELLING, SKIN PEELING Home Medications Medication Instructions Recorded Confirmed Type amlodipine 5 mg tablet 5 mg PO QAM 02/24/21 03/22/24 History lisinopril 5 mg tablet 40 mg PO HS 10/16/22 03/22/24 History acetaminophen 650 mg 650 mg PO UD PRN aches and pains 03/13/23 03/22/24 History tablet,extended release ascorbate calcium (vitamin C) 500 1 g PO QAM 03/13/23 03/22/24 History mg tablet gabapentin 100 mg capsule 300 mg PO TID neuropathy 03/13/23 03/22/24 History (Neurontin) Eye Drops For Chemo 1 dose UD PRN when on Elahere 12/06/23 03/22/24 History afvqbhq-krarxuksk-zver tablet 1 tab PO QAM 12/06/23 03/22/24 History hydrochlorothiazide 25 mg tablet 25 mg PO QAM 12/06/23 03/22/24 History mirvetuximab soravtansine-gynx 5 0 mg IV UD 12/06/23 03/22/24 History mg/mL intravenous solution ([facility]) propylene glycol (PF) 0.6 % eye 1 drp ophthalmic (eye) UD PRN when 12/06/23 03/22/24 History drops [facility]Systane [facility] PF[facility] phenazopyridine 200 mg tablet 200 mg PO Q8H PRN pain #10 tabs 12/16/23 03/22/24 Rx (Pyridium) levothyroxine 150 mcg tablet 150 mcg PO DAILY #30 tabs 03/11/24 03/22/24 Rx Past Med/Surg History Problem List (Updated 03/22/24 @ 04:15 by Tasha Cobian DO) Anemia Weakness Microscopic hematuria Hypothyroidism Urinary frequency Stress incontinence Nocturia HTN (hypertension) Primary osteoarthritis of right knee Pelvic pain Medical History UTI (urinary tract infection) dx 11/19 /asymptomatic/abx tx completed. Port-A-Cath in place High blood pressure ed eval within past couple months/bp medication dose changes since. Thyroid disease unknown details. Ovarian cancer dx 2015/chemo ever since. Off chemo past 9 weeks/ awaiting scheduling of chemo for upcoming/estimated to start December 25 2023. [facility]. Overactive bladder History of DVT (deep vein thrombosis) ~2017, [facility] Post-op after hysterectomy. 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 controlled currently, only takes gabapentin as needed. Hiatal hernia Hx: UTI (urinary tract infection) Surgical History History of total right knee replacement History of vascular access device left placed 3 yr ago/power port S/P insertion of IVC (inferior vena caval) filter [facility], [facility] History of colonoscopy H/O arthroscopic knee surgery bilateral History of left knee replacement H/O abdominal hysterectomy (~2016) [facility] with BSO History of back surgery (~2015) to removal blood clot from spinal column Family History Other No family history of adverse response to anesthesia Social History Smoking Status: Never smoker Second Hand Exposure: No; Do You Dip or Chew Tobacco: No; Hx Alcohol Use: No Hx Substance Use: No Preferred Language: Sinhala Communication Ability: Effective Manager Supplier Required: No Beliefs That Will Affect Care: None marital status: Current Living Situation: Alone current occupational status: retired How many Children do You have: 2 Feels Safe at Home: Yes Safety Concerns: Feels Safe At This Time Assistive Devices: Cane, Glasses and Walker Review of Systems Review of Systems: All systems reviewed & are unremarkable except as noted in HPI & below Physical Exam Physical Exam: General: patient resting comfortably, NAD, non-toxic in appearance, AA&O x 4 Skin: warm, dry, intact, no rashes or lesions HEENT: NC/AT, PERRL, EOMI, anicteric sclera, conjunctiva without injection, external ear normal to inspection and nontender, nares patent, moist mucus membranes, dentition intact, no oropharyngeal lesions, neck supple, trachea midline, no LAD, no thyromegaly, no JVD Heart: +S1/S2, regular, no m/r/g Lungs: equal air entry bilaterally, no rales/rhonchi/wheezes Abd: +BS, soft, NT/ND, no masses/organomegaly/ascites Ext: warm, 2+ pulses in UE/LE bilaterally, no clubbing/cyanosis or edema Neuro: nonfocal, patient AA&O x 4, speech intact, no facial droop, moving all extremities on command with equal strength 5/5 Results & Data Results & Data Vital Signs (Past 12 Hours) Vital Signs Temp Pulse Resp BP Pulse Ox O2 Del Method 03/21/24 22:47 37.5 C 99 H 18 90/54 L 98 Room Air 03/21/24 22:46 103 H Laboratory Results Laboratory Results WBC 4.65 K/ul (4.8-10.8) L 03/21/24 22:58 RBC 2.57 M/uL (4.20-5.40) L 03/21/24 22:58 Hgb 7.7 g/dl (12.0-16.0) L 03/21/24 22:58 Hct 23.5 % (37.0-47.0) L 03/21/24 22:58 MCV 91.4 fL (80.0-100.0) 03/21/24 22:58 MCH 30.0 pg (25.0-34.0) 03/21/24 22:58 MCHC 32.8 g/dL (32.0-36.0) 03/21/24 22:58 RDW Std Deviation 51.3 fL (36.4-46.3) H 03/21/24 22:58 RDW Coeff of Sydni 15.6 % (11.5-14.5) H 03/21/24 22:58 Plt Count 59 K/uL (130-400) L 03/21/24 22:58 MPV 10.9 fL (9.4-12.4) 03/21/24 22:58 Immature Gran % (Auto) 0.4 % 03/21/24 22:58 Neut % (Auto) 83.7 % 03/21/24 22:58 Lymph % (Auto) 9.0 % 03/21/24 22:58 [place] % (Auto) 6.9 % 03/21/24 22:58 Eos % (Auto) 0.0 % 03/21/24 22:58 Baso % (Auto) 0.0 % 03/21/24 22:58 Reticulocyte % (Auto) 1.03 % (0.50-2.00) 03/21/24 22:58 Neut # (Auto) 3.89 K/uL (1.40-6.50) 03/21/24 22:58 Lymph # (Auto) 0.42 K/uL (1.20-3.40) L 03/21/24 22:58 [place] # (Auto) 0.32 K/uL (0.11-0.59) 03/21/24 22:58 Eos # (Auto) 0.00 K/uL (0.00-0.50) 03/21/24 22:58 Baso # (Auto) 0.00 K/uL (0.00-0.20) 03/21/24 22:58 Reticulocyte # 0.030 10^6/uL (0.020-0.100) 03/21/24 22:58 Immature Gran # (Auto) 0.02 K/uL (0.01-0.20) 03/21/24 22:58 Dohle Bodies 1+ 03/21/24 22:58 PT 11.0 Seconds (9.0-12.0) 03/21/24 22:58 INR 1.0 (0.9-1.1) 03/21/24 22:58 APTT 33 Seconds (21-31) H 03/21/24 22:58 PTT Ratio 1.2 03/21/24 22:58 Sodium 132 mmol/L (136-145) L 03/21/24 22:58 Potassium 3.2 mmol/L (3.5-5.1) L 03/21/24 22:58 Chloride 103 mmol/L (98-107) 03/21/24 22:58 Carbon Dioxide 22 mmol/L (21-32) 03/21/24 22:58 Anion Gap 7 (3-11) 03/21/24 22:58 BUN 33 mg/dl (6-23) H 03/21/24 22:58 Creatinine 1.58 mg/dl (0.6-1.2) H 03/21/24 22:58 Est Cr Clr Drug Dosing 27.9 ml/min 03/21/24 22:58 Est GFR ( Amer) 35.2 ml/min 03/21/24 22:58 Est GFR (Non-Af Amer) 30.4 ml/min 03/21/24 22:58 BUN/Creatinine Ratio 20.9 (10-20) H 03/21/24 22:58 Glucose 103 mg/dl (70-99(Fasting)) H 03/21/24 22:58 Calcium 7.4 mg/dl (8.6-10.3) L 03/21/24 22:58 Phosphorus 2.8 mg/dl (2.5-4.9) 03/21/24 22:58 Magnesium 1.7 mg/dl (1.7-2.4) 03/21/24 22:58 Iron < 10 mcg/dl (35-150) L 03/21/24 22:58 TIBC TNP 03/21/24 22:58 Unsaturated IBC 164 mcg/dl (155-355) 03/21/24 22:58 Transferrin % Sat TNP 03/21/24 22:58 Total Bilirubin 0.6 mg/dl (0.2-1.0) 03/21/24 22:58 AST 40 U/L (13-39) H 03/21/24 22:58 ALT 26 U/L (7-52) 03/21/24 22:58 Alkaline Phosphatase 63 U/L (34-104) 03/21/24 22:58 Lactate Dehydrogenase 206 U/L (86-244) 03/21/24 22:58 Total Protein 5.7 gm/dl (6.0-8.3) L 03/21/24 22:58 Albumin 2.9 gm/dl (3.4-5.0) L 03/21/24 22:58 Globulin 2.8 gm/dl (2.5-4.0) 03/21/24 22:58 Albumin/Globulin Ratio 1.0 (0.9-2) 03/21/24 22:58 TSH 1.451 uIu/ml (0.300-4.500) 03/21/24 22:58 Random Cortisol 22.91 mcg/dl 03/22/24 00:26 Urine Color Yellow 03/22/24 Unknown Urine Appearance Clear (Clear) 03/22/24 Unknown Urine pH 7.0 (4.5-7.5) 03/22/24 Unknown Ur Specific [place] 1.012 (1.000-1.030) 03/22/24 Unknown Urine Protein 2+ (Negative) H 03/22/24 Unknown Urine Glucose (UA) Negative (Negative) 03/22/24 Unknown Urine Ketones Negative (Negative) 03/22/24 Unknown Urine Blood Negative (Negative) 03/22/24 Unknown Urine Nitrite Negative (Negative) 03/22/24 Unknown Urine Bilirubin Negative (Negative) 03/22/24 Unknown Urine Urobilinogen Negative (Negative) 03/22/24 Unknown Ur Leukocyte Esterase Negative (Negative) 03/22/24 Unknown Urine WBC (Auto) 0-5 /hpf (0-5) 03/22/24 Unknown Urine RBC (Auto) 0-2 /hpf (0-2) 03/22/24 Unknown U Hyaline Cast (Auto) 0-2 /lpf (0-2) 03/22/24 Unknown U Epithel Cells (Auto) 0-2 /hpf (0-2) 03/22/24 Unknown Urine Bacteria (Auto) None Seen (None Seen) 03/22/24 Unknown Blood Type A Negative 03/22/24 00:26 Antibody Screen NEGATIVE 03/22/24 00:26 Diagnostic Findings CXR with no obvious infiltrate, edema or PTX Code Status & VTE Plan VTE Prophylaxis Plan VTE Prophylaxis will be ordered: Yes PG Care Time/CCT Total # of Minutes Spent Total Time Spent with Patient: Total time spent is greater than 50% in coordination of care (as documented) at patient's floor/unit and/or counseling patient: Coding Level of Care Code 47769 INT INP/OBS CARE 255MIN Diagnoses Weakness R53.1 Anemia D64.9 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; E06.3 Hypothyroidism type: due to Bryanna's thyroiditis Essential hypertension I10 Hypertension type: essential hypertension Malignant neoplasm of ovary, unspecified laterality C56.9 Laterality: unspecified laterality (3) Hypothyroidism 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 (4) HTN (hypertension) Hypertension type: essential hypertension Qualified Code(s): I10 - Essential (primary) hypertension (5) Ovarian cancer Laterality: unspecified laterality Qualified Code(s): C56.9 - Malignant neoplasm of unspecified ovary
[2024-03-22 00:47] LABS: Iron < 10 mcg/dl (35-150); Lactate Dehydrogenase 206 U/L (86-244); Magnesium 1.7 mg/dl (1.7-2.4); Phosphorus 2.8 mg/dl (2.5-4.9); Unsaturated Iron Binding Cap 164 mcg/dl (155-355)
[2024-03-22] MEDS: SODIUM CHLORIDE 0.9% 500 ML IV SCH (00:52)
[2024-03-22 00:57] LABS: Thyroid Stimulating Hormone 1.451 uIu/ml (0.300-4.500)
[2024-03-22] MEDS ORDERED: ONDANSETRON INJ 2 MG/ML 2 ML VIAL IV PRN (02:30)
[2024-03-22 03:31] LABS: Appearance Urine Clear (Clear); Bacteria Urine Automated None Seen (None Seen); Bilirubin Urine Negative (Negative); Blood Urine Negative (Negative); Cast Urine Automated 0-2 /lpf (0-2); Color Urine Yellow; Epithelial Cell Urine Auto 0-2 /hpf (0-2); Glucose Urine UA Negative (Negative); Ketones Urine Negative (Negative); Leukocyte Esterase Urine Negative (Negative); Nitrite Urine Negative (Negative); Protein Urine 2+ (Negative); RBC Urine Automated 0-2 /hpf (0-2); Specific Gravity Urine 1.012 (1.000-1.030); Urobilinogen Urine Negative (Negative); WBC Urine Automated 0-5 /hpf (0-5)
[2024-03-22] MEDS ORDERED: PHENAZOPYRIDINE HCL 200 MG TAB PO PRN (04:19)
[2024-03-22] MEDS: POTASSIUM CHLORIDE CRTAB 20 MEQ TABCR PO STA (04:24)
[2024-03-22] MEDS: LEVOTHYROXINE SODIUM 150 MCG TABLET PO SCH (07:38)
--- NOTE | 2024-03-22 08:07 | XRay Report ---
SINGLE VIEW CHEST CLINICAL HISTORY: Generalized weakness. FINDINGS: An AP, portable, upright chest radiograph is compared to study dated 09/26/2023. Correlatio n is made with chest CT dated 03/06/2024. A left subclavian central venous infusion port is unchanged in position. The heart is enlarged noting atherosclerotic calcification of the thoracic aorta. The pu lmonary vasculature is noncongested. Chronic interstitial thickening is similar to previous. There is bibasilar scarring/atelectasis. No airspace consolidation or large pleural effusion is identified. S mall pulmonary nodules are unchanged and were better assessed on the recent chest CT. No pneumothorax is seen. The skeletal structures are osteopenic. The bony thorax is grossly intact. Advanced arthrit ic change is seen in the shoulders. Calcified joint bodies are noted on the left. IMPRESSION: Cardiomegaly with no acute cardiopulmonary abnormality identified. ACT 112: Negative or not required by law. Electronically signed by: Oliver Schofield M.D. 03/22/2024 8:05 AM
[2024-03-22] MEDS: GABAPENTIN 300 MG CAP PO SCH (08:30)
[2024-03-22 09:02] LABS: BUN Creatinine Ratio 22.7 (10-20); Calcium 7.9 mg/dl (8.6-10.3); Creatinine Clr Calc Pharmacy 33.4 ml/min; Est GFR (African American) 43.7 ml/min; Est GFR (Non-African American) 37.7 ml/min; Hematocrit (blood only) 26.1 % (37.0-47.0); Hemoglobin 8.3 g/dl (12.0-16.0); Mean Corpuscular Hemoglobin 29.1 pg (25.0-34.0); Mean Corpuscular Hgb Conc 31.8 g/dL (32.0-36.0); Mean Corpuscular Volume 91.6 fL (80.0-100.0); Mean Platelet Volume 10.7 fL (9.4-12.4); Platelet Count 64 K/uL (130-400); RDW Coefficient of Variation 15.7 % (11.5-14.5); RDW Standard Deviation 52.7 fL (36.4-46.3); Red Blood Count 2.85 M/uL (4.20-5.40); White Blood Count 4.84 K/ul (4.8-10.8)
[2024-03-22] MEDS: ACETAMINOPHEN 325 MG TAB PO PRN (11:14)
[2024-03-22 14:31] LABS: Adenovirus PCR Not Detected (NotDetected); Bordetella parapertussis PCR Not Detected (NotDetected); Bordetella pertussis PCR Not Detected (NotDetected); Chlamydia pneumoniae PCR Not Detected (NotDetected); Coronavirus 229E PCR Not Detected (NotDetected); Coronavirus CoV-2 (COVID19)PCR Not Detected (NotDetected); Coronavirus HKU1 PCR Not Detected (NotDetected); Coronavirus NL63 PCR Not Detected (NotDetected); Coronavirus OC43PCR Not Detected (NotDetected); Human Metapneumovirus PCR Not Detected (NotDetected); Influenza A PCR Not Detected (NotDetected); Influenza B PCR Not Detected (NotDetected); Mycoplasma pneumoniae PCR Not Detected (NotDetected); Parainfluenza Virus 1 PCR Not Detected (NotDetected); Parainfluenza Virus 2 PCR Not Detected (NotDetected); Parainfluenza Virus 3 PCR Not Detected (NotDetected); Parainfluenza Virus 4 PCR Not Detected (NotDetected); Respiratory Syncytial VirusPCR Not Detected (NotDetected); Rhinovirus/Enterovirus PCR Not Detected (NotDetected)
[2024-03-22] MEDS ORDERED: VANCOMYCIN CONSULT ACTIVE PRN (15:35)
[2024-03-22] MEDS: SODIUM CHLORIDE 0.9% 1,000 ML IV SCH (16:24)
[2024-03-22] MEDS: VANCOMYCIN HCL 1,750 MG in SODIUM CHLORIDE 0.9% 500 ML IV SCH (16:48)
[2024-03-22] MEDS: CEFEPIME 2,000 MG in SYRINGE 0 ML IV SCH (16:48)
--- NOTE | 2024-03-22 19:54 | Hospitalist Progress Note ---
Date of Service March 22, 2024 Assessment & Plan (1) Fever: Plan: developed such this am, but did have fever at home - she doesn't recall the actual temp Resp BioFire neg anaplasmosis smear neg u/a not suggestive of UTI but culture sent blood cx's x 2 sets drawn with 1 set from her a-port lyme negative cxr w/o pneumonia she [place] large property[place] in [place] and spends considerable time outdoors with pancytopenia, mildly elevated AST, etc -- > anaplasmosis?? send anaplasmosis DNA start empiric doxy 100mg BID to cover the port - start IV vanco for general empiric gram+/gram- coverage - cefepime recheck labs am (2) Pancytopenia: Plan: she is 3 weeks out from last round of chemo would be unusual to still have pancytopenia this far out from the chemo I am concerned about tick-borne infection - this could be the cause of such daily CBC (3) Weakness: Plan: 2nd to cause of #1 above (4) Anemia: (5) Hypothyroidism: Plan: TSH wnl Continue Synthroid (6) HTN (hypertension): Plan: Patient with hypotension on arrival -Hold HCTZ and Lisinopril -Hold Amlodipine (7) Ovarian cancer: Admission and Anticipated Discharge Date Admission Date: March 22, 2024 Subjective saw patient after she got to the floor she was resting comfortably in bed did eat a little of all 3 meals today but not as much as typical denies all of the following -- headache, URI symptoms, myalgias, arthralgias, skin rashes, cp, dyspnea, cough, dysuria, sick contacts or travels lives on [address] property in [place] spends considerable time outdoors - cuts 6 acres of grass with zero-turn riding lawnmower takes care of 2 horses has dogs, a cat, a bird Physical Exam Physical Exam: gen - resting in bed, nontoxic, NAD mouth - MM slightly dry neck - no lymph nodes heart - RRR, s1 s2, 1/6 MEKHI LSB lungs - CTA b/l abd - soft NT ND BS+; no HSM ext - no edema, pulses 2+ b/l skin - no rash musculo - b/l TKR scars; no effusions any joint psych - a/o x 3 vascular - port L upper chest clean, no tenderness, no erythema Results & Data Results & Data Vital Signs (Past 12 Hours) Vital Signs Temp Pulse Resp BP Pulse Ox O2 Del Method 03/22/24 19:42 37.6 C H 98 H 20 113/70 96 Room Air 03/22/24 17:05 37.3 C 03/22/24 16:30 39.4 C H 104 H 18 117/64 94 Room Air 03/22/24 15:51 38.4 C H 03/22/24 14:58 37.3 C 03/22/24 11:12 38.7 C H Laboratory Results Laboratory Results - last 24 hr 03/21/24 03/22/24 03/22/24 22:58 00:26 08:22 WBC 4.65 L 4.84 RBC 2.57 L 2.85 L Hgb 7.7 L 8.3 L Hct 23.5 L 26.1 L MCV 91.4 91.6 MCH 30.0 29.1 MCHC 32.8 31.8 L RDW Std Deviation 51.3 H 52.7 H RDW Coeff of Sydni 15.6 H 15.7 H Plt Count 59 L 64 L MPV 10.9 10.7 Immature Gran % (Auto) 0.4 Neut % (Auto) 83.7 Lymph % (Auto) 9.0 [place] % (Auto) 6.9 Eos % (Auto) 0.0 Baso % (Auto) 0.0 Reticulocyte % (Auto) 1.03 Neut # (Auto) 3.89 Lymph # (Auto) 0.42 L [place] # (Auto) 0.32 Eos # (Auto) 0.00 Baso # (Auto) 0.00 Reticulocyte # 0.030 Immature Gran # (Auto) 0.02 Dohle Bodies 1+ Peripher Smr Path Cons Pending PT 11.0 INR 1.0 APTT 33 H PTT Ratio 1.2 Sodium 132 L 136 Potassium 3.2 L 4.0 D Chloride 103 105 Carbon Dioxide 22 24 Anion Gap 7 7 BUN 33 H 30 H Creatinine 1.58 H 1.32 H Est Cr Clr Drug Dosing 27.9 33.4 Est GFR ( Amer) 35.2 43.7 Est GFR (Non-Af Amer) 30.4 37.7 BUN/Creatinine Ratio 20.9 H 22.7 H Glucose 103 H 89 Calcium 7.4 L 7.9 L Phosphorus 2.8 Magnesium 1.7 Iron < 10 L TIBC TNP Unsaturated IBC 164 Transferrin % Sat TNP Total Bilirubin 0.6 AST 40 H ALT 26 Alkaline Phosphatase 63 Lactate Dehydrogenase 206 Total Creatine Kinase 100 Total Protein 5.7 L Albumin 2.9 L Globulin 2.8 Albumin/Globulin Ratio 1.0 TSH 1.451 Random Cortisol 22.91 Urine Color Urine Appearance Urine pH Ur Specific [place] Urine Protein Urine Glucose (UA) Urine Ketones Urine Blood Urine Nitrite Urine Bilirubin Urine Urobilinogen Ur Leukocyte Esterase Urine WBC (Auto) Urine RBC (Auto) U Hyaline Cast (Auto) U Epithel Cells (Auto) Urine Bacteria (Auto) Adenovirus (PCR) Anaplasma Smear See Comment B. pertussis DNA (PCR) B.parapertussis DNA PCR Lyme Disease Screen C. pneumoniae DNA (PCR) Coronavirus OC43 (PCR) Coronavirus HKU1 (PCR) Coronavirus 229E (PCR) SARS-CoV-2 (PCR) Coronavirus NL63 (PCR) Human Metapneumovir PCR Influenza Type A (PCR) Influenza Type B (PCR) M. pneumoniae (PCR) Parainfluenza 1 (PCR) Parainfluenza 2 (PCR) Parainfluenza 3 (PCR) Parainfluenza 4 (PCR) RSV (PCR) Entero/Rhino (PCR) Blood Type A Negative Antibody Screen NEGATIVE 03/22/24 03/22/24 03/22/24 12:12 13:24 Unknown WBC RBC Hgb Hct MCV MCH MCHC RDW Std Deviation RDW Coeff of Sydni Plt Count MPV Immature Gran % (Auto) Neut % (Auto) Lymph % (Auto) [place] % (Auto) Eos % (Auto) Baso % (Auto) Reticulocyte % (Auto) Neut # (Auto) Lymph # (Auto) [place] # (Auto) Eos # (Auto) Baso # (Auto) Reticulocyte # Immature Gran # (Auto) Dohle Bodies Peripher Smr Path Cons PT INR APTT PTT Ratio Sodium Potassium Chloride Carbon Dioxide Anion Gap BUN Creatinine Est Cr Clr Drug Dosing Est GFR ( Amer) Est GFR (Non-Af Amer) BUN/Creatinine Ratio Glucose Calcium Phosphorus Magnesium Iron TIBC Unsaturated IBC Transferrin % Sat Total Bilirubin AST ALT Alkaline Phosphatase Lactate Dehydrogenase Total Creatine Kinase Total Protein Albumin Globulin Albumin/Globulin Ratio TSH Random Cortisol Urine Color Yellow Urine Appearance Clear Urine pH 7.0 Ur Specific [place] 1.012 Urine Protein 2+ H Urine Glucose (UA) Negative Urine Ketones Negative Urine Blood Negative Urine Nitrite Negative Urine Bilirubin Negative Urine Urobilinogen Negative Ur Leukocyte Esterase Negative Urine WBC (Auto) 0-5 Urine RBC (Auto) 0-2 U Hyaline Cast (Auto) 0-2 U Epithel Cells (Auto) 0-2 Urine Bacteria (Auto) None Seen Adenovirus (PCR) Not Detected Anaplasma Smear B. pertussis DNA (PCR) Not Detected B.parapertussis DNA PCR Not Detected Lyme Disease Screen Negative C. pneumoniae DNA (PCR) Not Detected Coronavirus OC43 (PCR) Not Detected Coronavirus HKU1 (PCR) Not Detected Coronavirus 229E (PCR) Not Detected SARS-CoV-2 (PCR) Not Detected Coronavirus NL63 (PCR) Not Detected Human Metapneumovir PCR Not Detected Influenza Type A (PCR) Not Detected Influenza Type B (PCR) Not Detected M. 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; E06.3 Hypothyroidism type: due to Bryanna's thyroiditis Essential hypertension I10 Hypertension type: essential hypertension Malignant neoplasm of ovary, unspecified laterality C56.9 Laterality: unspecified laterality (5) Hypothyroidism 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 (6) HTN (hypertension) Hypertension type: essential hypertension Qualified Code(s): I10 - Essential (primary) hypertension (7) Ovarian cancer Laterality: unspecified laterality Qualified Code(s): C56.9 - Malignant neoplasm of unspecified ovary
[2024-03-22] MEDS: DOXYCYCLINE HYCLATE 100 MG CAP PO SCH (20:40)
[2024-03-23 06:32] LABS: Hematocrit (blood only) 23.9 % (37.0-47.0); Hemoglobin 7.6 g/dl (12.0-16.0); Mean Corpuscular Hgb Conc 31.8 g/dL (32.0-36.0); Mean Corpuscular Volume 91.2 fL (80.0-100.0); Mean Platelet Volume 10.7 fL (9.4-12.4); Platelet Count 49 K/uL (130-400); RDW Coefficient of Variation 15.9 % (11.5-14.5); RDW Standard Deviation 53.1 fL (36.4-46.3); Red Blood Count 2.62 M/uL (4.20-5.40); White Blood Count 4.07 K/ul (4.8-10.8)
[2024-03-23 06:54] LABS: Calcium 7.7 mg/dl (8.6-10.3); Creatinine Clr Calc Pharmacy 37.4 ml/min; Est GFR (African American) 50.1 ml/min; Est GFR (Non-African American) 43.2 ml/min; Potassium 3.7 mmol/L (3.5-5.1)
[2024-03-23 08:21] LABS: A calco-baum cmplx NotReported Not Detected (NotDetected); Bact fragilis Not Reported Not Detected (NotDetected); Blood Culture Id Panel See PCR Comment (NotDetected); C auris Not Reported Not Detected (NotDetected); Calbicans Not Reported Not Detected (NotDetected); Candida glabrata Not Reported Not Detected (NotDetected); Candida krusei Not Reported Not Detected (NotDetected); Cneoformans/gatti Not Reported Not Detected (NotDetected); Cparapsilosis Not Reported Not Detected (NotDetected); E cloacae compx Not Reported Not Detected (NotDetected); Efaecalis Not Reported Not Detected (NotDetected); Efaecium Not Reported Not Detected (NotDetected); Enterobacterales Not Reported Not Detected (NotDetected); Escherichia coli Not Reported Not Detected (NotDetected); H influenzae Not Reported Not Detected (NotDetected); K aerogenes Not Reported Not Detected (NotDetected); Koxytoca Not Reported Not Detected (NotDetected); Kpneumoniae grp Not Reported Not Detected (NotDetected); Lmonocyt Not Reported Not Detected (NotDetected); N meningitidis Not Reported Not Detected (NotDetected); P aeruginosa Not Reported Not Detected (NotDetected); Proteus spp Not Reported Not Detected (NotDetected); Salmonella spp Not Reported Not Detected (NotDetected); Smarcescens Not Reported Not Detected (NotDetected); Staph lugdunensis Not Reported Not Detected (NotDetected); Staphaureus Not Reported Not Detected (NotDetected); Staphepi Not Reported Not Detected (NotDetected); Staphylococcus spp. DETECTED (NotDetected); Stenmaltophilia Not Reported Not Detected (NotDetected); Strep agal(GrpB) Not Reported Not Detected (NotDetected); Strep pneum Not Reported Not Detected (NotDetected); Strep pyog (GrpA) Not Reported Not Detected (NotDetected); Strep spp Not Reported Not Detected (NotDetected)
[2024-03-23] MEDS: VANCOMYCIN HCL 1,000 MG in SODIUM CHLORIDE 0.9% 250 ML IV SCH (08:37)
[2024-03-23 08:49] LABS: Staph spp. Not Reported DETECTED (NotDetected)
--- NOTE | 2024-03-23 12:58 | XCELERA ---
[id number]
--- NOTE | 2024-03-23 14:03 | Pharmacy Report ---
Pharmacy PK ABX Note - Date of Service March 23, 2024 - Assessment and Plan Assessment 83 year old F receiving vancomycin/cefepime and doxycycline PO. Patient admitted with fevers/weakness. PMHx significant for cancer s/p chemotherapy treatment ~3 weeks ago. Blood cultures positive for staph species, urine culture negative. Concerns for possible tick borne infection/anaplasmosis workup. Plan Vancomycin * Loading dose: 1750 mg iv x 1 given in ED last evening * Maintenance dose: 1000 mg IV every 24 hours * Regimen is predicted to achieve target AUC/HERMINIO of 400-600 mg/L.hr * Random vancomycin level ordered for tomorrow AM Pharmacy will continue to follow and will adjust dose/frequency as necessary. Thank you. Pharmacy has transitioned to AUC monitoring for vancomycin. AUC/HERMINIO is the preferred PK/PD target and is associated with decreased risk of nephrotoxicity compared to traditional trough targets.
[2024-03-23] MEDS: FUROSEMIDE INJ 20 MG/2 ML VIAL IV ONE (14:13)
[2024-03-23] MEDS: ALBUT/IPRATROP 3MG/0.5MG NEB 3 ML VIAL NEB STA (14:19)
--- NOTE | 2024-03-23 14:49 | XRay Report ---
XR chest 1V portable CLINICAL HISTORY: ?pulm edema? TECHNIQUE: Single frontal radiograph of the chest was obtained. Comparison: Comparison is made to chest radiograph 04/02/2024 FINDINGS: A port catheter is seen. Calcified aortic knob is seen. The lungs are clear. No evidence of pleural e ffusion or pneumothorax. IMPRESSION: No acute abnormality and in particular no evidence of pulmonary edema. ACT 112: Negative or not required by law. Electronically signed by: Migue Quevedo M.D. 03/23/2024 2:48 PM
[2024-03-23] MEDS ORDERED: SODIUM CHLORIDE 0.9% 250 ML IV PRN (15:15)
--- NOTE | 2024-03-23 19:50 | Hospitalist Progress Note ---
Date of Service March 23, 2024 Assessment & Plan (1) Anaplasmosis: Plan: fever, pancytopenia, elevated AST, heavy outdoor time at home (mows 5-10 acres of grass [place]), etc along with +anaplasmosis smear c/w anaplasmosis infection today is day #2 of doxy 100mg BID plan 14 days of Rx anasplasmosis DNA was dispatched this am before the smear results became available (2) Bacteremia due to Staphylococcus: Plan: source - a-port?? 2/4 bottles + from yesterday will repeat her blood cx's today; 1 set to be drawn from the port continue IV vancomycin if blood cultures don't show any gram negative pathogen can d/c the cefepime echo checked today -- no valvular vegetations noted if the port is the source and the pathogen is staph aureus may need to explant the port await all culture results (3) Acute respiratory distress: Plan: 2nd to #4 improved s/p duoneb + lasix IV o2 sats remain wnl cxr without pneumonia she had severe wheezing with crackles & JVD; I do not believe the respiratory distress was due to acute PE (4) Acute pulmonary edema: Plan: risk factors - copious IV fluids since ER presentation, hypoalbuminemia/anemia causing decreased oncotic pressure, sepsis/bacteremia with "leak", etc s/p lasix 20mg IV x 1 -- copious diuresis with such and improved symptoms/signs echo with preserved EF re-eval tomorrow for need for additional IV lasix cont duonebs (5) Pancytopenia: Plan: she is 3 weeks out from last round of chemo; daughter states it is some form of immune-based treatment she receives her Rx in [place] some of the pancytopenia could be due to anaplasmosis infection nutritional def is possible other etiologies possible daily CBC (6) Weakness: Plan: multifactorial - anaplasmosis infection, staph bacteremia, ovarian cancer, anemia, etc PT, OT evals ordered (7) Anemia: Plan: has been anemic since late 2022 I don't see nutritional labs in our system; perhaps her heme/onc provider in [place] has checked them but to her daughter's knowledge she doesn't believe so will check Fe studies, B12, folate in am recheck CBC am anemia is likely multifactorial - her ovarian ca itself, some element of suppression from anaplasmosis, nutritional deficiency, etc the anemia is in the setting of pancytopenia Her Hb is <8 today T/C 1 unit PRBCs; hold for now If Hb is 7 to 7.5 tomorrow consider transfusion of 1 unit PRBCs (8) Hypothyroidism: Plan: TSH wnl Continue Synthroid (9) HTN (hypertension): Plan: Patient had had hypotension on arrival and thus her HCTZ, amlodipine, and lisinopril were all held She appeared volume contracted upon ER presentation BPs starting to rise Likely will need to restart 1 or more meds next few days Trend the BPs (10) Ovarian cancer: Plan: with carcinomatosis/peritoneal mets 03/06/24 CT abd/pelvis -- "Lymph nodes Retroperitoneal: Retroperitoneal node previously measuring 15 mm now measures 8 mm in short axis. Additional nodes have likewise decreased in size. Pelvic: Interval decrease in size of right pelvic node previously measuring 22 mm in short axis, now 11 mm. Mesenteric: Mesenteric nodes have decreased in size, for example a right of midline node measures 18 mm, compared to 11 mm in the prior exam. Peritoneum: Overall decrease in peritoneal deposits. For example, a right paracolic gutter mass is significantly decreased from prior exam. There is trace ascites, improved from prior exam." 03/06/24 CT chest -- "IMPRESSION: Atelectasis is seen. Multiple stable pulmonary nodules as above. No evidence of metastatic disease above the diaphragm. Previously noted prediaphragmatic node has decreased in size." Thus, has had treatment response. Is on an immunological agent and her primary oncologist is in [place]. (11) Hypoalbuminemia: Plan: albumin 2.9 on day of admission likely contributed to acute pulmonary edema Plan updated pt's daughter at bedside I also called her daughter late evening after her mother's chest x-ray, echo, etc had returned questions answered complex care today - multiple bedside visits, multiple conversations, etc - total time today - 80 minutes Admission and Anticipated Discharge Date Admission Date: March 22, 2024 Subjective tele overnight wnl I was contacted by Ms Lopez's nurse via [facility] early afternoon that patient had severe cough with wheezing during my assessment pt was indeed coughing and had an audible wheeze (could hear it without listening to her lungs) daughter was at bedside she had no cough/wheeze/dyspnea overnight it started rather abruptly late morning she denies that it started after eating or drinking I updated the pt and her daughter that anaplasmosis smear was POSITIVE and that her blood cx's are positive for staph we discussed this in detail pt reports ongoing fatigue, weakness, appetite loss Review of Systems Review of Systems: gen - no fever today, no chills cv - no chest pain; some orthopnea pulm - cough/wheeze/dyspnea at rest; did not get out of bed today thus unable to say about dyspnea on exertion GI - no abd pain or N/V Physical Exam Physical Exam: 2 exams today. first exam - early afternoon - gen - resting in bed, severe cough, audible wheezing, mild respiratory distress neck - NEW JVD present, about 1/2 [address] up neck mouth - MMM heart - RRR, s1 s2, 1/6 MEKHI LSB lungs - extensive wheezing b/l, b/l basilar rales, mild tachypnea abd - soft NT ND BS+; no HSM ext - no edema, pulses 2+ b/l skin - no rash psych - a/o x 3 vascular - port L upper chest clean - still no tenderness, no erythema 2nd exam following lasix + duoneb - gen - cough improved, no further audible wheezing, looks better neck - JVD improved lungs - tachypnea resolved, wheezing marked improvement, minimal rales bases Results & Data Results & Data Vital Signs (Past 12 Hours) Vital Signs Temp Pulse Pulse Pulse Resp BP Pulse Ox 03/23/24 15:57 36.6 C 88 20 129/68 96 03/23/24 15:11 83 03/23/24 14:20 85 20 96 03/23/24 11:41 36.2 C L 88 20 130/73 96 O2 Del Method 03/23/24 15:57 Room Air 03/23/24 15:11 03/23/24 14:20 Room Air 03/23/24 11:41 Room Air Laboratory Results Laboratory Results - last 24 hr 03/22/24 03/23/24 03/23/24 12:12 05:50 15:34 WBC 4.07 L RBC 2.62 L Hgb 7.6 L Hct 23.9 L MCV 91.2 MCH 29.0 MCHC 31.8 L RDW Std Deviation 53.1 H RDW Coeff of Sydni 15.9 H Plt Count 49 L MPV 10.7 Sodium 134 L Potassium 3.7 Chloride 107 Carbon Dioxide 20 L Anion Gap 7 BUN 26 H Creatinine 1.18 Est Cr Clr Drug Dosing 37.4 Est GFR ( Amer) 50.1 Est GFR (Non-Af Amer) 43.2 BUN/Creatinine Ratio 22.0 H Glucose 90 Calcium 7.7 L AST 50 H B-Natriuretic Peptide 144 H Staphylococcus sp PCR DETECTED A Bld Cult ID Panel PCR See PCR Comment Diagnostic Findings Microbiology 03/22/24 12:16 Blood Aerobic Blood Culture - Preliminary Gram positive cocci 03/22/24 12:16 Blood Anaerobic Blood Culture - Preliminary Gram positive cocci clusters 03/22/24 12:12 Blood Aerobic Blood Culture - Preliminary Gram positive cocci 03/22/24 12:12 Blood Anaerobic Blood Culture - Preliminary 03/22/24 13:21 Urine,Clean Catch Urine Culture - Final More than three types of organisms present, all high counts mixed probable skin winston - No further identifications or sensitivities to follow. Chest X-Ray 03/23/24 14:07 XR chest 1V portable CLINICAL HISTORY: ?pulm edema? TECHNIQUE: Single frontal radiograph of the chest was obtained. Comparison: Comparison is made to chest radiograph 04/02/2024 FINDINGS: A port catheter is seen. Calcified aortic knob is seen. The lungs are clear. No evidence of pleural effusion or pneumothorax. IMPRESSION: No acute abnormality and in particular no evidence of pulmonary edema. ACT 112: Negative or not required by law. Electronically signed by: Migue Quevedo M.D. 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; E06.3 Hypothyroidism type: due to Bryanna's thyroiditis Essential hypertension I10 Hypertension type: essential hypertension Malignant neoplasm of ovary, unspecified laterality C56.9 Laterality: unspecified laterality Hypoalbuminemia E88.09 Additional Codes Prolonged Care Time - Prolonged Care Time: Yes ([id number]) (8) Hypothyroidism 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 (9) HTN (hypertension) Hypertension type: essential hypertension Qualified Code(s): I10 - Essential (primary) hypertension (10) Ovarian cancer Laterality: unspecified laterality Qualified Code(s): C56.9 - Malignant neoplasm of unspecified ovary
[2024-03-23] MEDS: ALBUT/IPRATROP 3MG/0.5MG NEB 3 ML VIAL NEB SCH (20:35)
[2024-03-24 07:25] LABS: Hematocrit (blood only) 26.1 % (37.0-47.0); Hemoglobin 8.3 g/dl (12.0-16.0); Mean Corpuscular Hemoglobin 29.1 pg (25.0-34.0); Mean Corpuscular Hgb Conc 31.8 g/dL (32.0-36.0); Mean Corpuscular Volume 91.6 fL (80.0-100.0); Mean Platelet Volume 10.7 fL (9.4-12.4); Platelet Count 65 K/uL (130-400); RDW Coefficient of Variation 15.9 % (11.5-14.5); RDW Standard Deviation 54.2 fL (36.4-46.3); Red Blood Count 2.85 M/uL (4.20-5.40); White Blood Count 3.96 K/ul (4.8-10.8)
[2024-03-24 07:36] LABS: Anion Gap 7 (3-11); BUN Creatinine Ratio 22.9 (10-20); Blood Urea Nitrogen 25 mg/dl (6-23); Carbon Dioxide 22 mmol/L (21-32); Chloride 108 mmol/L (98-107); Creatinine Clr Calc Pharmacy 39.7 ml/min; Est GFR (African American) 55.1 ml/min; Est GFR (Non-African American) 47.6 ml/min; Glucose 96 mg/dl (70-99(Fasting)); Potassium 3.8 mmol/L (3.5-5.1); Sodium 137 mmol/L (136-145)
[2024-03-24 07:38] LABS: Iron 119 mcg/dl (35-150); Magnesium 1.8 mg/dl (1.7-2.4); Unsaturated Iron Binding Cap < 55 mcg/dl (155-355)
[2024-03-24 07:56] LABS: Ferritin 1033.3 ng/ml (8-388)
[2024-03-24 08:06] LABS: Folate (Folic Acid),Ser orPlas > 22.30 ng/ml (>5.38)
[2024-03-24 08:07] LABS: Vitamin B12 955 pg/ml (180-914)
--- NOTE | 2024-03-24 08:09 | Pharmacy Report ---
Pharmacy PK ABX Note - Date of Service March 24, 2024 - Assessment and Plan Assessment 03/24: Reviewed vancomycin level, predicting therapeutic goal range with less than ideal probability . Blood cultures growing GPCs 3/4 bottles (BCID2 staph species-no further identification noted). Methicillin resistant organism coverage recommended until final culture and sensitivities resulted-still pending. Will decrease vancomycin frequency slightly for better probability of achieving goal AUC/HERMINIO due to severity of infection. 03/23: 83 year old F receiving vancomycin/cefepime and doxycycline PO. Patient admitted with fevers/weakness. PMHx significant for cancer s/p chemotherapy treatment ~3 weeks ago. Blood cultures positive for staph species, urine culture negative. Concerns for possible tick borne infection/anaplasmosis workup. Plan Vancomycin * Current maintenance dose: 1000 mg IV every 24 hours (74% probability of achieving goal AUC/HERMINIO) * Decrease frequency to vancomycin 1000mg every 18 hours (96% probability of achieving goal AUC/HERMINIO) * Regimen is predicted to achieve target AUC/HERMINIO of 400-600 mg/L.hr * Random vancomycin level ordered for 03/26/24 with AM labs Pharmacy will continue to follow and will adjust dose/frequency as necessary. Mary whitaker. Pharmacy has transitioned to AUC monitoring for vancomycin. AUC/HERMINIO is the preferred PK/PD target and is associated with decreased risk of nephrotoxicity compared to traditional trough targets.
[2024-03-24] MEDS: VANCOMYCIN LEVEL ONE (09:09)
--- NOTE | 2024-03-24 13:31 | Infectious Disease Consult ---
Date of Consultation March 24, 2024 Assessment & Plan (1) Bacteremia due to Staphylococcus: (2) Anaplasmosis: (3) Pancytopenia: (4) Weakness: (5) Ovarian cancer: Plan 83yo F with h/o ovarian cancer on chemo, last tx 3-4 wks ago, prior VTE, HTN, who presented overnight on 03/21 with fatigue and weakness x 1 week. On admission, she was febrile, BP 90/50s improved with IVFs, requiring 2L NC. WBC 4.65, Hb 7.7, platelets 59. Cr 1.58, AST 40. CK 100. UA negative. RPP negative. Lyme neg. CXR with cardiomegaly. TTE with AV sclerosis mild, mild-mod mitral annular calcification, no discrete vegetations identified. Of note, Anaplasma smear noted to have intracytoplasmic neutrophilic inclusions, further testing pending. Patient has been getting vancomycin, cefepime, and doxycycline. ID consulted 03/24. Regarding staph bacteremia, speciation is still in process. Whether it is S aureus or CONS, given 4 of 4 bottles positive, I do think this warrants removal of the chest port, especially if there are future plans for chemotherapy. She has bl knee replacements, but no acute issues noted. TTE didnt mention any vegetations. No spinal tenderness or other hardware. Repeat BCx are in process. If she has persistent bacteremia, despite removal of port, then would pursue CARLOTA. Regarding her Anaplasma smear, she is at risk of tick bite given the location of her home and outdoors activities. Intracytoplasmic inclusions are noted. Will continue on doxy. # Staph bacteremia # Anaplasmosis # Ovarian cancer on chemo # Chest port - would advise removal of chest port, send cx from port - f/u BCx - continue vancomycin pharmacy dosed protocol - Kaitlyn stopped cefepime - continue doxycycline 100mg PO twice daily x 10 days ID will continue to follow. If questions or concerns, contact Infectious Disease Call Center . Selene Pandey MD [facility], Division of Infectious Diseases [facility]: [phone] Consultation Information Consultation was provided via telemedicine using two-way real-time interactive telecommunication between the patient and the telemedicine provider. For the duration of the visit, the provider was performing the assessment from a different facility than the patient. This includesuse of bluetooth stethoscope forauscultationperformed by the telepresenter that the telemedicine provider can hear if described in the physical exam. [employer] contact information: Please call [facility] Call Center . (Phone Number For Physician Use Only) After establishing a telemedicine visit, patient was: Patient was verified with two unique identifiers, Patient/authorized rep acknowledged consent and understanding and Gave permission to continue telehealth session Time Spent with Patient: Initial => 75 min History of Present Illness Reason for Consultation: Staph bacteremia Attending Physician: Elvira Delgadillo MD History of Present Illness 83yo F with h/o ovarian cancer on chemo, last tx 3-4 wks ago, prior VTE, HTN, who presented overnight on 03/21 with fatigue and weakness x 1 week. In the evening, she slid from the couch and was unable to get up due to weakness. Her BP was found to be 90/60. No reported chest pain, cough, SOB, congestion, abdominal pain, vomiting, diarrhea. On admission, she was febrile, BP 90/50s improved with IVFs, requiring 2L NC. WBC 4.65, Hb 7.7, platelets 59. Cr 1.58, AST 40. CK 100. UA negative. RPP negative. Lyme neg. CXR with cardiomegaly. TTE with AV sclerosis mild, mild-mod mitral annular calcification, no discrete vegetations identified. Of note, Anaplasma smear noted to have intracytoplasmic neutrophilic inclusions, further testing pending. Patient has been getting vancomycin, cefepime, and doxycycline. ID consulted 03/24. On evaluation, patient reports that she is feeling better than before. Weakness has improved. [place] and pasture. Also goes for a walk with her dogs in her driveway. She does have a wooded area around her pasture. She doesnt recall having a tick bite or rash. She denies having any back pain. Notes back stiffness from being in bed. Notes left knee pain chronically, has had both knees replaced. Notes also having a shankar cyst and fat cyst behind her right knee. She has not had any issues with her chest port. Last chemo 3wks ago from March 20. She usually gets chemo on first Saturday of the month, but last Evelio was skipped due to her weakness. She doesnt have any open sores. No rashes. No abdominal pain, vomiting, diarrhea, SOB, chest pain. Allergies Allergy/AdvReac Type Severity Reaction Status Date / Time piperacillin Allergy Intermediate hives Verified 03/22/24 00:58 tazobactam Allergy Intermediate hives Verified 03/22/24 00:58 oxaprozin AdvReac Intermediate FEET Verified 03/22/24 00:58 SWELLING, SKIN PEELING Home Medications Medication Instructions Recorded Confirmed Type amlodipine 5 mg tablet 5 mg PO QAM 02/24/21 03/22/24 History lisinopril 5 mg tablet 40 mg PO HS 10/16/22 03/22/24 History acetaminophen 650 mg 650 mg PO UD PRN aches and pains 03/13/23 03/22/24 History tablet,extended release ascorbate calcium (vitamin C) 500 1 g PO QAM 03/13/23 03/22/24 History mg tablet gabapentin 100 mg capsule 300 mg PO TID neuropathy 03/13/23 03/22/24 History (Neurontin) Eye Drops For Chemo 1 dose UD PRN when on Elahere 12/06/23 03/22/24 History hqkndqx-qxhhxohjh-acqd tablet 1 tab PO QAM 12/06/23 03/22/24 History hydrochlorothiazide 25 mg tablet 25 mg PO QAM 12/06/23 03/22/24 History mirvetuximab soravtansine-gynx 5 0 mg IV UD 12/06/23 03/22/24 History mg/mL intravenous solution ([facility]) propylene glycol (PF) 0.6 % eye 1 drp ophthalmic (eye) UD PRN when 12/06/23 03/22/24 History drops (Systane Complete PF) on [facility] phenazopyridine 200 mg tablet 200 mg PO Q8H PRN pain #10 tabs 12/16/23 03/22/24 Rx (Pyridium) levothyroxine 150 mcg tablet 150 mcg PO DAILY #30 tabs 03/11/24 03/22/24 Rx Patient History Medical History UTI (urinary tract infection) dx 11/19/abx tx completed. Port-A-Cath in place High blood pressure ed eval within past couple months/bp medication dose changes since. Thyroid disease unknown details. Ovarian cancer dx 2016/chemo ever since. Off chemo past 9 weeks/ awaiting scheduling of chemo for upcoming/estimated to start December 25 2023. [facility]. Overactive bladder History of DVT (deep vein thrombosis) ~2017, PE/DVT treated at Pending sale to [facility]. Post-op after hysterectomy. 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 controlled currently, only takes gabapentin as needed. Hiatal hernia Hx: UTI (urinary tract infection) Surgical History History of total right knee replacement History of vascular access device left placed 3 yr ago/power port S/P insertion of IVC (inferior vena caval) filter 2016, Pending sale to [facility] History of colonoscopy H/O arthroscopic knee surgery bilateral History of left knee replacement H/O abdominal hysterectomy (~2016) ZECHARIAH with BSO History of back surgery (~2015) to removal blood clot from spinal column Family History Other No family history of adverse response to anesthesia Social History Smoking Status: Never smoker Second Hand Exposure: No; Do You Dip or Chew Tobacco: No; Hx Alcohol Use: No Hx Substance Use: No Preferred Language: Dutch Communication Ability: Effective Chemical Equipment Controller Required: No Beliefs That Will Affect Care: None marital status: Current Living Situation: Alone current occupational status: retired How many Children do You have: 2 Feels Safe at Home: Yes Assistive Devices: Cane and Walker Review of System 10-point review of systems reviewed and are negative except for as above. Physical Exam Physical Exam: General: Awake, alert, no acute distress HEENT: NC/AT, EOMI, mmm Neck: supple Lungs: respirations non-labored Heart: nl peripheral perfusion Chest: left chest port clean, no erythema, nontender Abdomen: soft, NT/ND Back: no spinal tenderness Ext: bl knees nontender, no redness or swelling Skin: no rash Neuro: moving all extremities Results & Data Vital Signs (Past 12 Hours) Vital Signs Temp Pulse Pulse Resp BP BP Pulse Ox 03/24/24 11:43 36.8 C 107 H 17 115/68 98 03/24/24 11:15 95 H 16 97 03/24/24 09:20 03/24/24 09:00 99 H 18 98 03/24/24 08:00 36.5 C 82 15 131/77 97 03/24/24 07:16 93 H 03/24/24 03:27 36.6 C 91 H 16 142/75 H 98 O2 Del Method O2 Flow Rate 03/24/24 11:43 Nasal Cannula 2 03/24/24 11:15 Room Air 03/24/24 09:20 Room Air 03/24/24 09:00 Room Air 03/24/24 08:00 Room Air 03/24/24 07:16 03/24/24 03:27 Room Air Laboratory Results Labs reviewed. Diagnostic Findings Imaging reviewed. (5) Ovarian cancer Laterality: unspecified laterality Qualified Code(s): C56.9 - Malignant neoplasm of unspecified ovary
--- NOTE | 2024-03-24 16:00 | Surgery Consultation ---
Date of Consultation March 24, 2024 Assessment & Plan (1) Ovarian cancer: (2) Bacteremia due to Staphylococcus: 83 yo female with history of ovarian cancer on chemotherapy presented to ED with 1 week history of weakness. Blood cultures positive for staphylococcus 4/4. Will proceed with removal of aport given bacteremia. Discussed procedure and risks. Will schedule for removal of port tomorrow morning with Dr. Perry. NPO after midnight. Continue medical management Dr. Perry has seen and examined patient, see addendum for further recommendations/plan. Supervising Physician Co-Signing Physician Notes I have seen and examined the patient personally and agree with the above assessment and plan. In brief, she is 83-year-old female with blood cultures positive for Staphylococcus. She has an access port for her ovarian cancer on chemotherapy. We have been asked to remove the port. I discussed this with her. We will plan for removal of the a port tomorrow under sedation. All her questions were answered. She will be n.p.o. after midnight tonight. History of Present Illness Reason for Consultation: Bacteremia Requesting Physician: Elvira Delgaidllo MD Attending Physician: Elvira Delgadillo MD History of Present Illness 83yo F with h/o ovarian cancer on chemo, last tx 3-4 wks ago, prior VTE, HTN, who presented overnight on 03/21 with fatigue and weakness x 1 week. Blood cultures obtained which were positive for staphylococcus 4/4. Port was placed in 2006. No issues with port, port last used 3-4 weeks ago and currently being accessed now. Has not noticed any pain or redness or drainage surrounding port site. Our services consulted for port removal as recommended by ID. No blood thinning agents. Allergies Allergy/AdvReac Type Severity Reaction Status Date / Time piperacillin Allergy Intermediate hives Verified 03/22/24 00:58 tazobactam Allergy Intermediate hives Verified 03/22/24 00:58 oxaprozin AdvReac Intermediate FEET Verified 03/22/24 00:58 SWELLING, SKIN PEELING Home Medications Medication Instructions Recorded Confirmed Type amlodipine 5 mg tablet 5 mg PO QAM 02/24/21 03/22/24 History lisinopril 5 mg tablet 40 mg PO HS 10/16/22 03/22/24 History acetaminophen 650 mg 650 mg PO UD PRN aches and pains 03/13/23 03/22/24 History tablet,extended release ascorbate calcium (vitamin C) 500 1 g PO QAM 03/13/23 03/22/24 History mg tablet gabapentin 100 mg capsule 300 mg PO TID neuropathy 03/13/23 03/22/24 History (Neurontin) Eye Drops For Chemo 1 dose UD PRN when on Elahere 12/06/23 03/22/24 History fmymhmu-cjpjsrcnr-njyf tablet 1 tab PO QAM 12/06/23 03/22/24 History hydrochlorothiazide 25 mg tablet 25 mg PO QAM 12/06/23 03/22/24 History mirvetuximab soravtansine-gynx 5 0 mg IV UD 12/06/23 03/22/24 History mg/mL intravenous solution ([facility]) propylene glycol (PF) 0.6 % eye 1 drp ophthalmic (eye) UD PRN when 12/06/23 03/22/24 History drops [facility]ane [facility] phenazopyridine 200 mg tablet 200 mg PO Q8H PRN pain #10 tabs 12/16/23 03/22/24 Rx (Pyridium) levothyroxine 150 mcg tablet 150 mcg PO DAILY #30 tabs 03/11/24 03/22/24 Rx Patient History Medical History UTI (urinary tract infection) dx 11/19 /asymptomatic/abx tx completed. Port-A-Cath in place High blood pressure ed eval within past couple months/bp medication dose changes since. Thyroid disease unknown details. Ovarian cancer dx 2015/chemo ever since. Off chemo past 9 weeks/ awaiting scheduling of chemo for upcoming/estimated to start December 25 2023. [facility]. Overactive bladder History of DVT (deep vein thrombosis) ~2017, PE/DVT treated at [facility]. Post-op after hysterectomy. 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 controlled currently, only takes gabapentin as needed. Hiatal hernia Hx: UTI (urinary tract infection) Surgical History History of total right knee replacement History of vascular access device left placed 3 yr ago/power port S/P insertion of IVC (inferior vena caval) filter 2016, [facility] History of colonoscopy H/O arthroscopic knee surgery bilateral History of left knee replacement H/O abdominal hysterectomy (~2017) [facility] with BSO History of back surgery (~2015) to removal blood clot from spinal column Family History Other No family history of adverse response to anesthesia Social History Smoking Status: Never smoker Second Hand Exposure: No; Do You Dip or Chew Tobacco: No; Hx Alcohol Use: No Hx Substance Use: No Preferred Language: Kenyan Communication Ability: Effective Hand Booked Folder And Stitcher Required: No Beliefs That Will Affect Care: None marital status: Current Living Situation: Alone current occupational status: retired How many Children do You have: 2 Feels Safe at Home: Yes Assistive Devices: Cane and Walker Review of Systems 2 Review of Systems: All systems reviewed & are unremarkable except as noted in HPI & below Physical Exam Constitutional: WD/WN, vitals as above cooperative and comfortable; no acute distress and not ill appearing Respiratory: normal respiratory effort; no respiratory distress, no labored breathing and no retractions Chest (Breasts): Additional Comments: Subcutaneous port of the left chest without erythema, induration, fluctuance. Currently accessed with IV. Dressing intact. Skin: no rashes, warm and dry Psychiatric: A+Ox3, euthymic affect Results & Data Vital Signs (Past 12 Hours) Vital Signs Temp Pulse Pulse Resp BP BP Pulse Ox 03/24/24 14:28 101 H 16 97 03/24/24 11:43 36.8 C 107 H 17 115/68 98 03/24/24 11:15 95 H 16 97 03/24/24 09:20 03/24/24 09:00 99 H 18 98 03/24/24 08:00 36.5 C 82 15 131/77 97 03/24/24 07:16 93 H O2 Del Method O2 Flow Rate 03/24/24 14:28 Room Air 03/24/24 11:43 Nasal Cannula 2 03/24/24 11:15 Room Air 03/24/24 09:20 Room Air 03/24/24 09:00 Room Air 03/24/24 08:00 Room Air 03/24/24 07:16 Laboratory Results 06/09/0603/23/24 03/22/24 Range/Units 06:41 15:34 08:22 WBC 3.96 L (4.8-10.8) K/ul RBC 2.85 L (4.20-5.40) M/uL Hgb 8.3 L (12.0-16.0) g/dl Hct 26.1 L (37.0-47.0) % MCV 91.6 (80.0-100.0) fL MCH 29.1 (25.0-34.0) pg MCHC 31.8 L (32.0-36.0) g/dL RDW Std Deviation 54.2 H (36.4-46.3) fL RDW Coeff of Sydni 15.9 H (11.5-14.5) % Plt Count 65 L (130-400) K/uL MPV 10.7 (9.4-12.4) fL Sodium 137 (136-145) mmol/L Potassium 3.8 (3.5-5.1) mmol/L Chloride 108 H (98-107) mmol/L Carbon Dioxide 22 (21-32) mmol/L Anion Gap 7 (3-11) BUN 25 H (6-23) mg/dl Creatinine 1.09 (0.6-1.2) mg/dl Est Cr Clr Drug Dosing 39.7 ml/min Est GFR ( Amer) 55.1 ml/min Est GFR (Non-Af Amer) 47.6 ml/min BUN/Creatinine Ratio 22.9 H (10-20) Glucose 96 (70-99(Fasting)) mg/dl Calcium 8.0 L (8.6-10.3) mg/dl Magnesium 1.8 (1.7-2.4) mg/dl Iron 119 (35-150) mcg/dl TIBC TNP Unsaturated IBC < 55 L (155-355) mcg/dl Transferrin % Sat TNP Ferritin 1033.3 H (8-388) ng/ml B-Natriuretic Peptide 144 H (0-100) pg/ml Vitamin B12 955 H (180-914) pg/ml Folate > 22.30 (>5.38) ng/ml Random Vancomycin 9.5 L (10-20) mcg/ml Anaplasma Smear See Comment A Microbiology 03/22/24 12:12 Aerobic Blood Culture - Preliminary Blood Staphylococcus species Anaerobic Blood Culture - Preliminary Staphylococcus species 03/22/24 12:16 Aerobic Blood Culture - Preliminary Blood Staphylococcus species Anaerobic Blood Culture - Preliminary Gram positive cocci clusters (1) Ovarian cancer Laterality: unspecified laterality Qualified Code(s): C56.9 - Malignant neoplasm of unspecified ovary
--- NOTE | 2024-03-24 17:06 | Hospitalist Progress Note ---
Date of Service March 24, 2024 Assessment & Plan (1) Bacteremia due to Staphylococcus: Plan: 83 y/o with Lt upper chest port undergoing chemotherapy for metastatic ovarian cancer presented with fever, malaise, pancytopenia. 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 No vegetations on TTE, normal EF -/ bottles pending speciation -repeat cultures pending - if persistent bacteremia after port removal would need CARLOTA -continue vancomycin -consulted ID - discussed recommendation for port removal, agree -consulted general surgery Dr. 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 Volume status and EF was wnl on Echo same AM. She reports wheezing this AM as well resolved after nebs (4) Pancytopenia: Plan: she is 3 weeks out from last round of chemo; daughter states it is some form of immune-based treatment she receives her Rx in [place] some of the pancytopenia could be due to anaplasmosis infection and/or sepsis/bacteremia nutritional def is possible other etiologies possible daily CBC (5) Weakness: Plan: multifactorial - anaplasmosis infection, staph bacteremia, ovarian cancer, anemia, etc PT, OT evals ordered (6) Anemia: Plan: has been anemic since late 2022 I don't see nutritional labs in our system; perhaps her heme/onc provider in [place] has checked them but to her daughter's knowledge she doesn't believe so will check Fe studies, B12, folate Hg stable anemia is likely multifactorial - her ovarian ca itself, some element of suppression from anaplasmosis, nutritional deficiency, etc the anemia is in the setting of pancytopenia Her Hb is 8.3 on 03/24 (7) Hypothyroidism: Plan: TSH wnl Continue Synthroid (8) HTN (hypertension): Plan: Patient had had hypotension on arrival and thus her HCTZ, amlodipine, and lisinopril were all held She appeared volume contracted upon ER presentation -normotensive today (9) Ovarian cancer: Plan: with carcinomatosis/peritoneal mets 03/06/24 CT abd/pelvis -- "Lymph nodes Retroperitoneal: Retroperitoneal node previously measuring 15 mm now measures 8 mm in short axis. Additional nodes have likewise decreased in size. Pelvic: Interval decrease in size of right pelvic node previously measuring 22 mm in short axis, now 11 mm. Mesenteric: Mesenteric nodes have decreased in size, for example a right of midline node measures 18 mm, compared to 11 mm in the prior exam. Peritoneum: Overall decrease in peritoneal deposits. For example, a right paracolic gutter mass is significantly decreased from prior exam. There is trace ascites, improved from prior exam." 03/06/24 CT chest -- "IMPRESSION: Atelectasis is seen. Multiple stable pulmonary nodules as above. No evidence of metastatic disease above the diaphragm. Previously noted prediaphragmatic node has decreased in size." Thus, has had treatment response. Is on an immunological agent and her primary oncologist is in [place]. (10) Hypoalbuminemia: Plan: albumin 2.9 on day of admission likely contributed to acute pulmonary edema Plan updated pt's daughter at bedside 03/23, sister and other family 03/24 Admission and Anticipated Discharge Date Admission Date: March 22, 2024 Subjective she is generally feeling better, stronger less malaise fever resolved has had the port for many years has not noticed any redness pain or drainage she has bilateral total knee replacements the most recent of which was about 3 years ago, no pain or redness of her knees Physical Exam 2 Physical Exam: PHYSICAL EXAMINATION Last 24h vital signs reviewed, see documentation in flowsheet General: comfortable appearing, no distress, sitting up in the chair visiting with family HEENT: Normocephalic, atraumatic, pupils round and equal, sclerae anicteric, no conjunctival injection, moist mucus membranes Lungs: Normal respiratory effort. Clear to auscultation bilaterally. No RRW Heart: Regular rate and rhythm, no murmurs. No JVD left upper chest with Port-A-Cath which is accessed, no erythema no tenderness no drainage Abdomen: Soft, nontender, nondistended. Bowel sounds present. Extremities: Warm, dry, well-perfused. No extremity edema. Bilateral knees with well healed incisions, no erythema warmth or tenderness Psych: Normal affect and behavior Results & Data Results & Data Vital Signs (Past 12 Hours) Vital Signs Temp Pulse Pulse Resp BP BP Pulse Ox 03/24/24 16:51 103 H 03/24/24 16:02 36.3 C L 102 H 17 136/78 98 03/24/24 14:28 101 H 16 97 03/24/24 11:43 36.8 C 107 H 17 115/68 98 03/24/24 11:15 95 H 16 97 03/24/24 09:20 03/24/24 09:00 99 H 18 98 03/24/24 08:00 36.5 C 82 15 131/77 97 03/24/24 07:16 93 H O2 Del Method O2 Flow Rate 03/24/24 16:51 03/24/24 16:02 Room Air 03/24/24 14:28 Room Air 03/24/24 11:43 Nasal Cannula 2 03/24/24 11:15 Room Air 03/24/24 09:20 Room Air 03/24/24 09:00 Room Air 03/24/24 08:00 Room Air 03/24/24 07:16 Laboratory Results 03/24/24 06:41 03/24/24 06:41 PG Care Time/CCT Total # of Minutes Spent Total Time Spent with Patient: Total time spent is greater than 50% in coordination of care (as documented) at patient's floor/unit and/or counseling patient: Coding Level of Care Code 98835 SUB INP/OBS CARE 3/50MIN Diagnoses Bacteremia due to Staphylococcus R78.81; B95.8 Anaplasmosis A77.49 Acute pulmonary edema J81.0 Pancytopenia D61.818 Weakness R53.1 Anemia D64.9 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; E06.3 Hypothyroidism type: due to Bryanna's thyroiditis Essential hypertension I10 Hypertension type: essential hypertension Malignant neoplasm of ovary, unspecified laterality C56.9 Laterality: unspecified laterality Hypoalbuminemia E88.09 (7) Hypothyroidism 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
[2024-03-24] MEDS: VANCOMYCIN HCL 1,000 MG in SODIUM CHLORIDE 0.9% 250 ML IV SCH (23:55)
[2024-03-25 06:47] LABS: Hematocrit (blood only) 25.4 % (37.0-47.0); Hemoglobin 8.2 g/dl (12.0-16.0); Mean Corpuscular Hemoglobin 29.3 pg (25.0-34.0); Mean Corpuscular Hgb Conc 32.3 g/dL (32.0-36.0); Mean Corpuscular Volume 90.7 fL (80.0-100.0); Mean Platelet Volume 10.3 fL (9.4-12.4); Platelet Count 69 K/uL (130-400); RDW Standard Deviation 53.6 fL (36.4-46.3); White Blood Count 4.37 K/ul (4.8-10.8)
[2024-03-25 07:08] LABS: BUN Creatinine Ratio 19.6 (10-20); Calcium 8.6 mg/dl (8.6-10.3); Creatinine Clr Calc Pharmacy 42.4 ml/min; Est GFR (African American) 59.7 ml/min; Est GFR (Non-African American) 51.5 ml/min; Potassium 4.4 mmol/L (3.5-5.1)
[2024-03-25] MEDS ORDERED: MIDAZOLAM HCL 1 MG/ML 2ML VIAL ONE (09:15)
[2024-03-25] MEDS ORDERED: fentaNYL citrate PF 100 MCG/2 ML VIAL ONE (09:15)
[2024-03-25] MEDS ORDERED: PROPOFOL IV EMULSION 10 MG/ML 20 ML VIAL IV ONE (09:15)
[2024-03-25] MEDS: LACTATED RINGER'S 1,000 ML IV SCH (09:26)
--- NOTE | 2024-03-25 09:28 | History & Physical Bridge Note ---
Date of Service March 25, 2024 History & Physical Bridge Note I have examined the patient, reviewed the History & Physical and in the interval since the performance of the History & Physical I have noted the following changes of clinical significance: no changes noted
--- NOTE | 2024-03-25 09:35 | Anesthesiology Consultation ---
Date of Service March 25, 2024 Assessment & Plan (1) Encounter for pre-operative examination: Chart Review Chart Review: Acceptable Risk for Surgery History Surgery Operation Date: 03/25/24 09:50 Proposed Procedures p Infusaport Removal - Donavan Perry MD Height/Weight Height: 5 ft 5 in Weight: 69.9 kg Allergies Allergy/AdvReac Type Severity Reaction Status Date / Time piperacillin Allergy Intermediate hives Verified 03/22/24 00:58 tazobactam Allergy Intermediate hives Verified 03/22/24 00:58 oxaprozin AdvReac Intermediate FEET Verified 03/22/24 00:58 SWELLING, SKIN PEELING Medications Home Medications Medication Instructions Recorded Confirmed Last Taken amlodipine 5 mg tablet 5 mg PO QAM 02/24/21 03/22/24 12/16/23 07:30 lisinopril 5 mg tablet 40 mg PO HS 10/16/22 03/22/24 12/15/23 19:00 acetaminophen 650 mg 650 mg PO UD PRN aches and pains 03/13/23 03/22/24 12/15/23 19:00 tablet,extended release ascorbate calcium (vitamin C) 500 1 g PO QAM 03/13/23 03/22/24 12/15/23 08:00 mg tablet gabapentin 100 mg capsule 300 mg PO TID neuropathy 03/13/23 03/22/24 12/15/23 19:00 (Neurontin) Eye Drops For Chemo 1 dose UD PRN when on Elahere 12/06/23 03/22/24 12/15/23 08:00 bthdqpa-cmjhpagea-vnrf tablet 1 tab PO QAM 12/06/23 03/22/24 12/15/23 08:00 hydrochlorothiazide 25 mg tablet 25 mg PO QAM 12/06/23 03/22/24 12/15/23 08:00 mirvetuximab soravtansine-gynx 5 0 mg IV UD 12/06/23 03/22/24 Unknown mg/mL intravenous solution ([facility]) propylene glycol (PF) 0.6 % eye 1 drp ophthalmic (eye) UD PRN when 12/06/23 03/22/24 Unknown drops (Systane Complete PF) on [facility] phenazopyridine 200 mg tablet 200 mg PO Q8H PRN pain #10 tabs 12/16/23 03/22/24 Unknown (Pyridium) levothyroxine 150 mcg tablet 150 mcg PO DAILY #30 tabs 03/11/24 03/22/24 Unknown Active Medications Generic Name Dose Route Start Last Admin Trade Name Freq PRN Reason Stop Dose Admin Acetaminophen 650 mg 03/22/24 02:30 03/22/24 15:44 Acetaminophen 325 Mg Tab PO 04/21/24 02:29 650 mg Q4H PRN Administration pain/fever Albuterol 3 ml 03/23/24 19:55 03/25/24 07:12 Albut/Ipratrop 3mg/0.5mg Neb 3 Ml Vial NEB 04/22/24 19:54 3 ml QIDR ERIC Administration Protocol Doxycycline Hyclate 100 mg 03/22/24 21:00 03/25/24 08:25 Doxycycline Hyclate 100 Mg Cap PO 04/05/24 20:59 100 mg BID ERIC Administration Gabapentin 300 mg 03/22/24 09:00 03/25/24 08:25 Gabapentin 300 Mg Cap PO 04/21/24 08:59 300 mg TID ERIC Administration Vancomycin HCl 1,000 mg/ 270 mls @ 200 mls/hr 03/25/24 00:00 03/25/24 01:40 Sodium Chloride IV 04/08/24 00:00 Infused Q18H ERIC Infusion Lactated Ringer's 1,000 mls @ 15 mls/hr 03/25/24 09:00 03/25/24 09:26 Lr IV 04/24/24 08:59 15 mls/hr .Q24H ERIC Administration Levothyroxine Sodium 150 mcg 03/22/24 06:30 03/25/24 05:47 Levothyroxine Sodium 150 Mcg Tablet PO 04/21/24 06:29 150 mcg DAILYBB ERIC Administration NPO Date Last Intake of Fluids: 03/24/24 Time Last Intake of Fluids: 23:59 Date Last Intake of Solids: 03/24/24 Time Last Intake of Solids: 18:00 Past Medical History Medical History (Updated 03/25/24 @ 09:35 by Laci Carmona MD) Bacteremia due to Staphylococcus Hypoalbuminemia Acute pulmonary edema Pancytopenia UTI (urinary tract infection) dx 11/19 //abx tx completed. Port-A-Cath in place High blood pressure ed eval within past couple months/bp medication dose changes since. Thyroid disease unknown details. Ovarian cancer dx 2016/chemo ever since. Off chemo past 9 weeks/ awaiting scheduling of chemo for upcoming/estimated to start December 25 2023. [facility]. Overactive bladder History of DVT (deep vein thrombosis) ~2017, PE/DVT treated at [facility]. Post-op after hysterectomy. 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 controlled currently, only takes gabapentin as needed. Hiatal hernia Hx: UTI (urinary tract infection) Past Family History Family History Other No family history of adverse response to anesthesia Past Surgical History Surgical History History of total right knee replacement History of vascular access device left placed 3 yr ago/power port S/P insertion of IVC (inferior vena caval) filter 2017, [facility] History of colonoscopy H/O arthroscopic knee surgery bilateral History of left knee replacement H/O abdominal hysterectomy (~2016) [facility] with BSO History of back surgery (~2015) to removal blood clot from spinal column Social History Smoking Status: Never smoker Do You Dip or Chew Tobacco: No Hx Alcohol Use: No Hx Substance Use: No substance use type: does not use Physical Exam Vital Signs Last Vital Signs Temp 36.9 C 03/25/24 09:19 Pulse 93 H 03/25/24 09:19 Resp 20 03/25/24 09:19 BP 145/79 H 03/25/24 09:19 Pulse Ox 96 03/25/24 09:19 O2 Del Method Room Air 03/25/24 09:19 O2 Flow Rate 2 03/24/24 11:43 Testing Laboratory Results 03/25/24 06:09 03/25/24 06:09 PT 11.0 Seconds (9.0-12.0) 03/21/24 22:58 INR 1.0 (0.9-1.1) 03/21/24 22:58 APTT 33 Seconds (21-31) H 03/21/24 22:58 Urine Color Yellow 03/22/24 Unknown Urine Appearance Clear (Clear) 03/22/24 Unknown Urine pH 7.0 (4.5-7.5) 03/22/24 Unknown Ur Specific [place] 1.012 (1.000-1.030) 03/22/24 Unknown Urine Protein 2+ (Negative) H 03/22/24 Unknown Urine Glucose (UA) Negative (Negative) 03/22/24 Unknown Urine Ketones Negative (Negative) 03/22/24 Unknown Urine Nitrite Negative (Negative) 03/22/24 Unknown Ur Leukocyte Esterase Negative (Negative) 03/22/24 Unknown Urine WBC (Auto) 0-5 /hpf (0-5) 03/22/24 Unknown Urine RBC (Auto) 0-2 /hpf (0-2) 03/22/24 Unknown U Hyaline Cast (Auto) 0-2 /lpf (0-2) 03/22/24 Unknown U Epithel Cells (Auto) 0-2 /hpf (0-2) 03/22/24 Unknown Urine Bacteria (Auto) None Seen (None Seen) 03/22/24 Unknown Blood Type A Negative 03/22/24 00:26 Antibody Screen NEGATIVE 03/22/24 00:26 03/22/24 12:16 Aerobic Blood Culture - Preliminary Blood Staphylococcus species Anaerobic Blood Culture - Preliminary Staphylococcus species 03/23/24 15:37 Aerobic Blood Culture - Preliminary Blood No growth in Aerobic bottle after 24 hours. Anaerobic Blood Culture - Preliminary No growth in Anaerobic bottle after 24 hours. 03/23/24 15:39 Aerobic Blood Culture - Preliminary Blood No growth in Aerobic bottle after 24 hours. Anaerobic Blood Culture - Preliminary No growth in Anaerobic bottle after 24 hours. 03/22/24 12:12 Aerobic Blood Culture - Preliminary Blood Staphylococcus species Anaerobic Blood Culture - Preliminary Staphylococcus species 03/22/24 13:21 Urine Culture - Final Urine,Clean Catch More than three types of organisms present, all high counts mixed probable skin winston - No further identifications or sensitivities to follow. Electrocardiogram Date: 09/26/23 Findings: + NSR @ (83) and + poor R wave progression Echocardiogram Date: 03/23/24 LV Function: normal Valvular Disease: + no significant valvular disease
[2024-03-25] MEDS: LIDOCAINE 1% LOCAL 20 ML VIAL ONE (10:27)
--- NOTE | 2024-03-25 10:30 | Operative Report ---
Post Operative Report Pre & Post Diagnosis Operation Date: 03/25/24 09:50 Pre-Op Diagnosis: HYPOTENSION, WEAKNESS Post-Op Diagnosis: HYPOTENSION, WEAKNESS I identified the patient and participated in the time-out.: Yes Procedure Operation Date: 03/25/24 09:50 Actual Procedures p Infusaport Removal(Left) - Donavan Perry MD Surgeon Donavan Perry MD Boilermaker [place] none Estimated Blood Loss 5 Findings Consistent with Post-Op Diagnosis Specimens port tip for culture and sensitivity Drains none Anesthesia Type MAC Complications none Description of Procedure the patient was taken to the operating room, placed supine on the operating table. Timeout was performed, perioperative antibiotics were administered, SCD boots were placed. After adequate anesthesia and analgesia was obtained, the left chest was prepped and draped in the normal sterile fashion. Local anesthetic was injected into and around the area of the port. Incision was made with 15 blade scalpel and carried down to the level of the port. The port was dissected free circumferentially with blunt dissection and electrocautery. It was removed. The catheter was then removed. The tip was sent for culture. Attention was turned to hemostasis, which was excellent. Pressure was held on the tunnel site. No backbleeding was noted. The subcutaneous tissue was closed with 3-0 Vicryl. Skin was closed with running 4- 0 Monocryl subcuticular stitch. Dermabond was applied. She tolerated the procedure without complication, was transferred in stable condition to the PACU. All instrument, needle, sponge counts were correct at the end of the case. I performed the procedure. I attest to the content of the Intraoperative Record and any orders documented therein. Any exceptions are noted below.
--- NOTE | 2024-03-25 10:53 | Anesthesiology Progress Note ---
Date of Service March 25, 2024 Anesthesia Post Procedure Vital Signs Vital Signs: Temp Pulse Pulse Pulse Resp BP BP 03/25/24 10:45 93 H 15 138/78 03/25/24 10:35 36.0 C L 91 H 14 112/89 03/25/24 09:19 36.9 C 93 H 20 145/79 H 03/25/24 08:37 89 03/25/24 08:07 36.5 C 96 H 18 143/83 H 03/25/24 07:13 86 18 03/25/24 03:45 36.6 C 94 H 18 126/77 03/24/24 23:54 36.5 C 106 H 18 130/79 03/24/24 23:14 104 H 03/24/24 22:56 03/24/24 20:27 88 18 03/24/24 20:25 36.6 C 88 20 147/78 H 03/24/24 16:51 103 H 03/24/24 16:02 36.3 C L 102 H 17 136/78 03/24/24 14:28 101 H 16 03/24/24 11:43 36.8 C 107 H 17 115/68 03/24/24 11:15 95 H 16 Pulse Ox O2 Del Method O2 Flow Rate 03/25/24 10:45 95 Room Air 03/25/24 10:35 94 Room Air 03/25/24 09:19 96 Room Air 03/25/24 08:37 03/25/24 08:07 97 Room Air 03/25/24 07:13 96 Room Air 03/25/24 03:45 95 Room Air 03/24/24 23:54 94 Room Air 03/24/24 23:14 03/24/24 22:56 Room Air 03/24/24 20:27 98 Room Air 03/24/24 20:25 99 Room Air 03/24/24 16:51 03/24/24 16:02 98 Room Air 03/24/24 14:28 97 Room Air 03/24/24 11:43 98 Nasal Cannula 2 03/24/24 11:15 97 Room Air Transfer of Care Handoff Completed per policy Notes Mental Status: alert / awake / arousable Patient Amnestic to Procedure: Yes Nausea / Vomiting: adequately controlled Pain: adequately controlled Airway Patency, RR, SpO2: stable & adequate BP & HR: stable & adequate Hydration State: stable & adequate Anesthetic Complications: no major complications apparent
[2024-03-25] MEDS: ceFAZolin 330 MG/ML 1 GM VIAL ONE (11:55)
--- NOTE | 2024-03-25 13:18 | Infectious Disease Progress Nt ---
Date of Service March 25, 2024 Assessment & Plan (1) Bacteremia due to Staphylococcus: (2) Anaplasmosis: (3) Pancytopenia: (4) Weakness: (5) Ovarian cancer: Plan 83yo F with h/o ovarian cancer on chemo, last tx 3-4 wks prior to admission, prior VTE, HTN, bl TKA who presented overnight on 03/21 with fatigue and weakness x 1 week. On admission, she was febrile, BP 90/50s improved with IVFs, requiring 2L NC. WBC 4.65, Hb 7.7, platelets 59. Cr 1.58, AST 40. CK 100. UA negative. RPP negative. Lyme neg. BCX with CONS. CXR with cardiomegaly. TTE with AV sclerosis mild, mild-mod mitral annular calcification, no discrete vegetations identified. Of note, Anaplasma smear noted to have intracytoplasmic neutrophilic inclusions, further testing pending. Patient has been getting vancomycin, cefepime, and doxycycline. ID consulted 03/24. S/p chest port removal 03/25. Awaiting repeat BCX. She has bl knee replacements, but no acute issues noted. TTE didnt mention any vegetations. No spinal tenderness or other hardware. Suspect this could likely have been related to line infection. # CONS bacteremia # Anaplasmosis # Ovarian cancer on chemo # Chest port s/p removal 03/25 - Kaitlyn changed vancomycin to cefazolin 2g IV q8h given sensitivities - f/u cultures - continue doxycycline 100mg PO twice daily x 10 days for Anaplasma pending further testing - if BCx remain negative, then plan will be for 14 days of cefazolin 2g IV q8h (or 6g IV continuous infusion q24h for ease of administration) starting from 03/25, eot 04/07 (longer treatment due to presence of hardware) with weekly monitoring of CBC w diff and CMP can follow with PCP ID will continue to follow. If questions or concerns, contact Infectious Disease Call Center . Selene Pandey MD [facility], Division of Infectious Diseases IDConnect: [phone] Admission and Anticipated Discharge Date Admission Date: March 22, 2024 Subjective This patient recommendation is based on a telemedicine consult request which was completed asynchronously through chart review and information provided by the primary physician. The patient was not seen or examined today. The evaluation is consultative in nature and all patient care and treatment decisions can either be accepted or rejected by the patient's primary hospital-based treating physician using their own independent medical judgment for their patient. Time Spent Reviewing Chart: 31+ minutes Results & Data Vital Signs (Past 12 Hours) Vital Signs Temp Pulse Pulse Pulse Resp BP BP 03/25/24 12:51 35.8 C L 91 H 18 150/78 H 03/25/24 11:29 03/25/24 11:29 36.5 C 110 H 16 124/73 03/25/24 11:15 36.3 C L 16 138/83 03/25/24 10:55 36.6 C 87 13 148/89 H 03/25/24 10:45 93 H 15 138/78 03/25/24 10:35 36.0 C L 91 H 14 112/89 03/25/24 09:19 36.9 C 93 H 20 145/79 H 03/25/24 08:37 89 03/25/24 08:07 36.5 C 96 H 18 143/83 H 03/25/24 07:13 86 18 03/25/24 03:45 36.6 C 94 H 18 126/77 Pulse Ox O2 Del Method 03/25/24 12:51 94 Room Air 03/25/24 11:29 Room Air 03/25/24 11:29 94 Room Air 03/25/24 11:15 94 Room Air 03/25/24 10:55 96 Room Air 03/25/24 10:45 95 Room Air 03/25/24 10:35 94 Room Air 03/25/24 09:19 96 Room Air 03/25/24 08:37 03/25/24 08:07 97 Room Air 03/25/24 07:13 96 Room Air 03/25/24 03:45 95 Room Air Laboratory Results Labs reviewed. (5) Ovarian cancer Laterality: unspecified laterality Qualified Code(s): C56.9 - Malignant neoplasm of unspecified ovary
[2024-03-25] MEDS: ceFAZolin 2000MG 2,000 MG/15 ML SYR IV SCH (14:33)
--- NOTE | 2024-03-25 15:06 | Hospitalist Progress Note ---
Date of Service March 25, 2024 Assessment & Plan (1) Bacteremia due to Staphylococcus: Plan: 83 y/o with Lt upper chest port undergoing chemotherapy for metastatic ovarian cancer presented with fever, malaise, pancytopenia. 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 No vegetations on TTE, normal EF -/ bottles from ED speciated as CONS -reviewed recs in ID sustainability consultant's note -Left upper chest port removed 03/[address] Perry -repeat cultures pending - if persistent bacteremia after port removal would need CARLOTA -vancomycin changed to cefazolin based on sensitivities. 14d treatment planned post removal of port (03/25 - 04/07), longer duration of treatment because of knee hardware -will be able to use US guided PIV if only two weeks IV abx necessary. Port can be replaced in future once infection cleared if needed from an oncology standpoint. (2) Anaplasmosis: Plan: fever, pancytopenia, elevated AST, heavy outdoor time at home (mows 5[place]10 acres of grass [place]), etc along with +anaplasmosis smear c/w anaplasmosis infection today is day #01/21 of doxy 100mg BID anaplasmosis DNA pending (3) Acute pulmonary edema: Plan: wheezing, crackles, JVD afternoon of 03/23 suspected acute pulmonary edema, improved after IV lasix. Volume status and EF was wnl on Echo same AM. no wheezing or dyspnea today (4) Pancytopenia: Plan: she is 3 weeks out from last round of chemo; daughter states it is some form of immune-based treatment she receives her Rx in [place]: Dr. Joana Evans, [facility] [phone]. Will provide update. WBC still depressed but improved, thrombocytopenia improving. Anaplasmosis and bacteremia will cause/contribute to this. (5) Weakness: Plan: multifactorial - anaplasmosis infection, staph bacteremia, ovarian cancer, anemia, etc PT, OT 03/24 - became lightheaded, sweaty, fatigued, not safe for home discharge at this time - continue PT/OT see how she progresses with improvement in infections. Could require rehab stay. (6) Anemia: Plan: has been anemic since late 2022 ferritin is >1000 c/w inflammatory block, serum iron wnl 119 B12 955, folate >22 Hgb remains stable (7) Hypothyroidism: Plan: TSH wnl Continue Synthroid (8) HTN (hypertension): Plan: Patient had had hypotension on arrival and thus her HCTZ, amlodipine, and lisinopril were all held She appeared volume contracted upon ER presentation -normotensive to mildly hypertensive today - cont amlodipine, resume lisinopril (9) Ovarian cancer: Plan: with carcinomatosis/peritoneal mets 03/06/24 CT abd/pelvis -- "Lymph nodes Retroperitoneal: Retroperitoneal node previously measuring 15 mm now measures 8 mm in short axis. Additional nodes have likewise decreased in size. Pelvic: Interval decrease in size of right pelvic node previously measuring 22 mm in short axis, now 11 mm. Mesenteric: Mesenteric nodes have decreased in size, for example a right of midline node measures 18 mm, compared to 11 mm in the prior exam. Peritoneum: Overall decrease in peritoneal deposits. For example, a right paracolic gutter mass is significantly decreased from prior exam. There is trace ascites, improved from prior exam." 03/06/24 CT chest -- "IMPRESSION: Atelectasis is seen. Multiple stable pulmonary nodules as above. No evidence of metastatic disease above the diaphragm. Previously noted prediaphragmatic node has decreased in size." Thus, has had treatment response. Is on an immunological agent and her primary oncologist is in [place]. (10) Hypoalbuminemia: Plan: albumin 2.9 on day of admission likely contributed to acute pulmonary edema Plan updated pt's daughter at bedside 03/23, sister and other family 03/24 AM CBC DVTT ppx - on SCDs, start chemoprophylaxis once platelets>70 Admission and Anticipated Discharge Date Admission Date: March 22, 2024 Subjective Feels much better overall wrt weakness, malaise Port removed this morning - no immediate complications Physical Exam 2 Physical Exam: PHYSICAL EXAMINATION Last 24h vital signs reviewed, see documentation in flowsheet General: comfortable appearing, no distress, sitting up in bed awake and alert HEENT: Normocephalic, atraumatic, pupils round and equal, sclerae anicteric, no conjunctival injection, moist mucus membranes Lungs: Normal respiratory effort. Clear to auscultation bilaterally. No RRW Left upper chest incision c/d/i no erythema or drainage Heart: Regular rate and rhythm, no murmurs. No JVD Abdomen: Soft, protrudes, nontender, nondistended. Bowel sounds present. Extremities: Warm, dry, well-perfused. No extremity edema. Bilateral knees with well healed incisions, no erythema warmth or tenderness Psych: Normal affect and behavior Results & Data Results & Data Vital Signs (Past 12 Hours) Vital Signs Temp Pulse Pulse Pulse Resp BP BP 03/25/24 14:13 71 18 03/25/24 12:51 35.8 C L 91 H 18 150/78 H 03/25/24 11:29 03/25/24 11:29 36.5 C 110 H 16 124/73 03/25/24 11:15 36.3 C L 16 138/83 03/25/24 10:55 36.6 C 87 13 148/89 H 03/25/24 10:45 93 H 15 138/78 03/25/24 10:35 36.0 C L 91 H 14 112/89 03/25/24 09:19 36.9 C 93 H 20 145/79 H 03/25/24 08:37 89 03/25/24 08:07 36.5 C 96 H 18 143/83 H 03/25/24 07:13 86 18 03/25/24 03:45 36.6 C 94 H 18 126/77 Pulse Ox O2 Del Method 03/25/24 14:13 97 Room Air 03/25/24 12:51 94 Room Air 03/25/24 11:29 Room Air 03/25/24 11:29 94 Room Air 03/25/24 11:15 94 Room Air 03/25/24 10:55 96 Room Air 03/25/24 10:45 95 Room Air 03/25/24 10:35 94 Room Air 03/25/24 09:19 96 Room Air 03/25/24 08:37 03/25/24 08:07 97 Room Air 03/25/24 07:13 96 Room Air 03/25/24 03:45 95 Room Air Laboratory Results 03/25/24 06:09 03/25/24 06:09 PG Care Time/CCT Total # of Minutes Spent Total Time Spent with Patient: Total time spent is greater than 50% in coordination of care (as documented) at patient's floor/unit and/or counseling patient: Coding Level of Care Code 57695 SUB INP/OBS CARE 2/35MIN Diagnoses Bacteremia due to Staphylococcus R78.81; B95.8 Anaplasmosis A77.49 Acute pulmonary edema J81.0 Pancytopenia D61.818 Weakness R53.1 Anemia D64.9 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; E06.3 Hypothyroidism type: due to Bryanna's thyroiditis Essential hypertension I10 Hypertension type: essential hypertension Malignant neoplasm of ovary, unspecified laterality C56.9 Laterality: unspecified laterality Hypoalbuminemia E88.09 (7) Hypothyroidism 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
[2024-03-25] MEDS: lisinopril 40 MG TAB PO SCH (22:02)
[2024-03-26] MEDS: amLODIPine BESYLATE 5 MG TAB PO SCH (08:32)
--- NOTE | 2024-03-26 08:55 | Infectious Disease Progress Nt ---
Date of Service March 26, 2024 Assessment & Plan (1) Bacteremia due to Staphylococcus: (2) Anaplasmosis: (3) Pancytopenia: (4) Weakness: (5) Ovarian cancer: Plan 83yo F with h/o ovarian cancer on chemo, last tx 3-4 wks prior to admission, prior VTE, HTN, bl TKA who presented overnight on 03/21 with fatigue and weakness x 1 week. On admission, she was febrile, BP 90/50s improved with IVFs, requiring 2L NC. WBC 4.65, Hb 7.7, platelets 59. Cr 1.58, AST 40. CK 100. UA negative. RPP negative. Lyme neg. BCX with CONS. CXR with cardiomegaly. TTE with AV sclerosis mild, mild-mod mitral annular calcification, no discrete vegetations identified. Of note, Anaplasma smear noted to have intracytoplasmic neutrophilic inclusions, further testing pending. Patient has been getting vancomycin, cefepime, and doxycycline. ID consulted 03/24. S/p chest port removal 03/25. Repeat BCX remain negative. She has bl knee replacements, but no acute issues noted. TTE didnt mention any vegetations. No spinal tenderness or other hardware. Suspect this could likely have been related to line infection, port now removed. Will treat for a longer duration due to the presence of hardware. Regarding her Anaplasma smear, she is at risk of tick bite given the location of her home and outdoors activities. Intracytoplasmic inclusions are noted. PCR is in process, but would note that a negative test may not definitely rule out disease. Therefore, given blood smear findings, clinical history/exposure, and CBC findings, would complete therapy with doxycycline. # CONS bacteremia # Anaplasmosis # Ovarian cancer on chemo # Chest port s/p removal 03/25 - continue cefazolin 2g IV q8h - continue doxycycline 100mg PO twice daily x 10 days for Anaplasma (started 03/22, eot through 03/31) - plan for 14 days of cefazolin 2g IV q8h (or 6g IV continuous infusion q24h for ease of administration) starting from 03/25, eot 04/07 (longer treatment due to presence of hardware) - monitor weekly CBC w diff and CMP while on IV abx - can follow with PCP ID will discontinue active follow up at this time. Please do not hesitate to reconsult the Infectious Diseases service as needed. Selene Pandey MD [facility], Division of Infectious Diseases IDConnect: [phone] Admission and Anticipated Discharge Date Admission Date: March 22, 2024 Subjective Subsequent visit was provided via telemedicine using two-way real-time interactive telecommunication between the patient and the telemedicine provider. For the duration of the visit, the provider was performing the assessment from a different facility than the patient. This includesuse of bluetooth stethoscope forauscultationperformed by the telepresenter that the telemedicine provider can hear if described in the physical exam. Public Relations Director contact information: Please call ID Connect Call Center [phone]. (Phone Number For Physician Use Only) After establishing a telemedicine visit, patient was: Patient was verified with two unique identifiers, Patient/authorized rep acknowledged consent and understanding and Gave permission to continue telehealth session Time Spent with Patient: Subsequent => 55 min Patient reports doing well. No pain, abdominal discomfort, diarrhea, vomiting. Port site ok. Physical Exam Physical Exam: General: Awake, alert, no acute distress HEENT: NC/AT, EOMI, mmm Neck: supple Lungs: respirations non-labored Heart: nl peripheral perfusion Chest: left chest site of prior port is clean, no erythema Abdomen: soft, NT/ND Results & Data Vital Signs (Past 12 Hours) Vital Signs Temp Pulse Pulse Resp BP Pulse Ox O2 Del Method 03/26/24 07:55 36.6 C 91 H 16 128/82 98 Nebulizer 03/26/24 07:28 70 16 96 Room Air 03/26/24 07:24 87 03/26/24 04:22 36.6 C 89 18 151/79 H 94 Room Air 03/26/24 00:02 36.7 C 104 H 18 161/84 H 96 Room Air 03/25/24 23:29 92 H Laboratory Results Labs reviewed. Diagnostic Findings Imaging reviewed. (5) Ovarian cancer Laterality: unspecified laterality Qualified Code(s): C56.9 - Malignant ne oplasm of unspecified ovary
[2024-03-26 09:08] LABS: Hematocrit (blood only) 26.8 % (37.0-47.0); Hemoglobin 8.4 g/dl (12.0-16.0); Mean Corpuscular Hemoglobin 28.8 pg (25.0-34.0); Mean Corpuscular Hgb Conc 31.3 g/dL (32.0-36.0); Mean Corpuscular Volume 91.8 fL (80.0-100.0); Mean Platelet Volume 10.8 fL (9.4-12.4); Platelet Count 81 K/uL (130-400); RDW Coefficient of Variation 15.9 % (11.5-14.5); RDW Standard Deviation 53.5 fL (36.4-46.3); Red Blood Count 2.92 M/uL (4.20-5.40); White Blood Count 5.58 K/ul (4.8-10.8)
--- NOTE | 2024-03-26 11:36 | Surgery Progress Note ---
Date of Service March 26, 2024 Assessment & Plan (1) Ovarian cancer: (2) Bacteremia due to Staphylococcus: Plan: POD # 1 s/p infusport removal incision c/d/i with dermabond port culture still pending Plan: Prior port site c/d/i with dermabond continue medical/infectious disease management our services signing off. No submerging underwater for 2 weeks. Dermabond will fall off on its own. No need for surgical follow-up. Admission and Anticipated Discharge Date Admission Date: March 22, 2024 Subjective port site without pain or drainage ready to go home Physical Exam Constitutional: WD/WN, vitals as above cooperative and comfortable; no acute distress and not ill appearing Chest (Breasts): Additional Comments: left upper chest site: port site with c/d/i incision with dermabond. No drainage, erythema, or ecchymosis. Nontender. Skin: no rashes, warm and dry Results & Data Vital Signs (Past 12 Hours) Vital Signs Temp Pulse Pulse Resp BP Pulse Ox O2 Del Method 03/26/24 10:46 96 H 16 96 Room Air 03/26/24 07:55 36.6 C 91 H 16 128/82 98 Nebulizer 03/26/24 07:35 Room Air 03/26/24 07:28 70 16 96 Room Air 03/26/24 07:24 87 03/26/24 04:22 36.6 C 89 18 151/79 H 94 Room Air 03/26/24 00:02 36.7 C 104 H 18 161/84 H 96 Room Air Laboratory Results Microbiology 03/23/24 15:37 Aerobic Blood Culture - Preliminary Blood No growth in Aerobic bottle after 48 hours. Anaerobic Blood Culture - Preliminary No growth in Anaerobic bottle after 48 hours. 03/23/24 15:39 Aerobic Blood Culture - Preliminary Blood No growth in Aerobic bottle after 48 hours. Anaerobic Blood Culture - Preliminary No growth in Anaerobic bottle after 48 hours. 03/22/24 12:16 Aerobic Blood Culture - Final Blood Coag neg staph not lugdunensis Anaerobic Blood Culture - Final Coag neg staph not lugdunensis 03/22/24 12:12 Aerobic Blood Culture - Final Blood Coag neg staph not lugdunensis Anaerobic Blood Culture - Final Coag neg staph not lugdunensis (1) Ovarian cancer Laterality: unspecified laterality Qualified Code(s): C56.9 - Malignant neoplasm of unspecified ovary
--- NOTE | 2024-03-26 18:24 | Hospitalist Progress Note ---
Date of Service March 26, 2024 Assessment & Plan (1) Bacteremia due to Staphylococcus: Plan: 83 y/o with Lt upper chest port undergoing chemotherapy for metastatic ovarian cancer presented with fever, malaise, pancytopenia. 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 No vegetations on TTE, normal EF -4/4 bottles from ED speciated as CONS. Repeat blood cultures NGTD at 48h -reviewed recs in [employer] consultant's note 03/26 -Left upper chest port removed 03/[address] Perry -continue cefazolin - 14d treatment planned post removal of port (03/25 - 04/07), longer duration of treatment because of knee hardware -will be able to use US guided PIV if only two weeks IV abx necessary. Port can be replaced in future once infection cleared if needed from an oncology standpoint. Prefers home health with home infusion - has a good friend willing to help her with home antibiotics. 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 Volume status and EF was wnl on Echo same AM. no wheezing or dyspnea, has not recurred (4) Pancytopenia: Plan: she is 3 weeks out from last round of chemo; daughter states it is some form of immune-based treatment she receives her Rx in [place]: Dr. Joana Evans, [facility] [phone]. Faxed notes to provide update. WBC, thrombocytopenia improving. Anaplasmosis and bacteremia will cause/contribute to this. (5) Weakness: Plan: multifactorial - anaplasmosis infection, staph bacteremia, ovarian cancer, anemia, etc PT 03/25 - did better but PT still rec rehab stay (6) Anemia: Plan: has been anemic since late 2022 ferritin is >1000 c/w inflammatory block, serum iron wnl 119 B12 955, folate >22 Hgb remains stable (7) Hypothyroidism: Plan: TSH wnl Continue Synthroid (8) HTN (hypertension): Plan: Patient had had hypotension on arrival and thus her HCTZ, amlodipine, and lisinopril were all held She appeared volume contracted upon ER presentation -normotensive to mildly hypertensive today - cont amlodipine, resumed lisinopril at decreased dose. Maintained standing BP today (9) Ovarian cancer: Plan: with carcinomatosis/peritoneal mets 03/06/24 CT abd/pelvis -- "Lymph nodes Retroperitoneal: Retroperitoneal node previously measuring 15 mm now measures 8 mm in short axis. Additional nodes have likewise decreased in size. Pelvic: Interval decrease in size of right pelvic node previously measuring 22 mm in short axis, now 11 mm. Mesenteric: Mesenteric nodes have decreased in size, for example a right of midline node measures 18 mm, compared to 11 mm in the prior exam. Peritoneum: Overall decrease in peritoneal deposits. For example, a right paracolic gutter mass is significantly decreased from prior exam. There is trace ascites, improved from prior exam." 03/06/24 CT chest -- "IMPRESSION: Atelectasis is seen. Multiple stable pulmonary nodules as above. No evidence of metastatic disease above the diaphragm. Previously noted prediaphragmatic node has decreased in size." Thus, has had treatment response. Is on an immunological agent and her primary oncologist is in [place]. (10) Hypoalbuminemia: Plan: albumin 2.9 on day of admission likely contributed to acute pulmonary edema Plan updated pt's daughter at bedside 03/23, sister and other family 03/24 DVTT ppx - on SCDs, start chemoprophylaxis with enoxaparin Admission and Anticipated Discharge Date Admission Date: March 22, 2024 Subjective doing well, physically feels much stronger and walked farther today no pain at port incision site no shortness of breath Physical Exam Physical Exam: PHYSICAL EXAMINATION Last 24h vital signs reviewed, see documentation in flowsheet General: sitting up in chair and looks good HEENT: Normocephalic, atraumatic, pupils round and equal, sclerae anicteric, no conjunctival injection, moist mucus membranes Lungs: Normal respiratory effort. Clear to auscultation bilaterally. No RRW Left upper chest incision c/d/i no erythema or drainage healing well Heart: Regular rate and rhythm, no murmurs. No JVD Abdomen: Soft, protrudes, nontender, nondistended. Bowel sounds present. Extremities: Warm, dry, well-perfused. No extremity edema. Psych: Normal affect and behavior Results & Data Results & Data Vital Signs (Past 12 Hours) Vital Signs Temp Pulse Pulse Resp BP Pulse Ox O2 Del Method 03/26/24 16:48 96 H 03/26/24 16:24 36.9 C 50 L 16 147/68 H 98 Room Air 03/26/24 14:16 93 H 16 95 Room Air 03/26/24 11:50 36.8 C 101 H 16 137/85 92 Room Air 03/26/24 10:46 96 H 16 96 Room Air 03/26/24 07:55 36.6 C 91 H 16 128/82 98 Nebulizer 03/26/24 07:35 Room Air 03/26/24 07:28 70 16 96 Room Air 03/26/24 07:24 87 PG Care Time/CCT Total # of Minutes Spent Total Time Spent with Patient: Total time spent is greater than 50% in coordination of care (as documented) at patient's floor/unit and/or counseling patient: Coding Level of Care Code 74570 SUB INP/OBS CARE 235MIN Diagnoses Bacteremia due to Staphylococcus R78.81; B95.8 Anaplasmosis A77.49 Acute pulmonary edema J81.0 Pancytopenia D61.818 Weakness R53.1 Anemia D64.9 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; E06.3 Hypothyroidism type: due to Bryanna's thyroiditis Essential hypertension I10 Hypertension type: essential hypertension Malignant neoplasm of ovary, unspecified laterality C56.9 Laterality: unspecified laterality Hypoalbuminemia E88.09 (7) Hypothyroidism 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
[2024-03-26] MEDS: ENOXAPARIN INJ 40 MG/0.4 ML SYR SQ SCH (21:14)
[2024-03-27 06:50] LABS: Hematocrit (blood only) 26.2 % (37.0-47.0); Hemoglobin 8.4 g/dl (12.0-16.0); Mean Corpuscular Hemoglobin 29.3 pg (25.0-34.0); Mean Corpuscular Hgb Conc 32.1 g/dL (32.0-36.0); Mean Corpuscular Volume 91.3 fL (80.0-100.0); Mean Platelet Volume 10.5 fL (9.4-12.4); Platelet Count 79 K/uL (130-400); RDW Coefficient of Variation 15.9 % (11.5-14.5); RDW Standard Deviation 53.2 fL (36.4-46.3); Red Blood Count 2.87 M/uL (4.20-5.40); White Blood Count 5.51 K/ul (4.8-10.8)
[2024-03-27] MEDS ORDERED: ALBUT/IPRATROP 3MG/0.5MG NEB 3 ML VIAL NEB PRN (11:28)
--- NOTE | 2024-03-27 14:05 | Hospitalist Progress Note ---
Date of Service March 27, 2024 Assessment & Plan (1) Bacteremia due to Staphylococcus: Plan: 83 y/o with Lt upper chest port undergoing chemotherapy for metastatic ovarian cancer presented with fever, malaise, pancytopenia. 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 No vegetations on TTE, normal EF -4/4 bottles from ED speciated as CONS. Repeat blood cultures NGTD -Left upper chest port removed 03/[address] Perry, port tip culture no growth -continue cefazolin - 14d treatment planned post removal of port (03/25 - 04/07), longer duration of treatment because of knee hardware -place US guided PIV -arranged home infusion, discharge home tomorrow -Port can be replaced in future once infection cleared if needed from an oncology standpoint. PT/OT recommended rehab stay but Simran strongly prefers home health with home infusion - has a good friend willing to help her with home antibiotics. 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 Volume status and EF was wnl on Echo same AM. no wheezing or dyspnea, has not recurred (4) Pancytopenia: Plan: she is 3 weeks out from last round of chemo; daughter states it is some form of immune-based treatment she receives her Rx in [place]: Dr. Joana Evans, [facility] [phone]. Faxed notes to provide update. WBC, thrombocytopenia improving. Anaplasmosis and bacteremia will cause/contribute to this. (5) Weakness: Plan: multifactorial - anaplasmosis infection, staph bacteremia, ovarian cancer, anemia, etc improving - home health PT/OT (6) Anemia: Plan: has been anemic since late 2022 ferritin is >1000 c/w inflammatory block, serum iron wnl 119 B12 955, folate >22 Hgb remains stable (7) Hypothyroidism: Plan: TSH wnl Continue Synthroid (8) HTN (hypertension): Plan: Patient had had hypotension on arrival and thus her HCTZ, amlodipine, and lisinopril were all held She appeared volume contracted upon ER presentation -normotensive to mildly hypertensive today - cont amlodipine, resumed lisinopril at decreased dose. normal BP today (9) Ovarian cancer: Plan: with carcinomatosis/peritoneal mets 03/06/24 CT abd/pelvis -- "Lymph nodes Retroperitoneal: Retroperitoneal node previously measuring 15 mm now measures 8 mm in short axis. Additional nodes have likewise decreased in size. Pelvic: Interval decrease in size of right pelvic node previously measuring 22 mm in short axis, now 11 mm. Mesenteric: Mesenteric nodes have decreased in size, for example a right of midline node measures 18 mm, compared to 11 mm in the prior exam. Peritoneum: Overall decrease in peritoneal deposits. For example, a right paracolic gutter mass is significantly decreased from prior exam. There is trace ascites, improved from prior exam." 03/06/24 CT chest -- "IMPRESSION: Atelectasis is seen. Multiple stable pulmonary nodules as above. No evidence of metastatic disease above the diaphragm. Previously noted prediaphragmatic node has decreased in size." Thus, has had treatment response. Is on an immunological agent and her primary oncologist is in [place]. (10) Hypoalbuminemia: Plan: albumin fell from 3.5 --> 2.9 on day of admission likely contributed to acute pulmonary edema Plan updated pt's daughter at bedside 03/23, sister and other family 03/24 DVTT ppx - on SCDs, had hemorrhoidal bleeding today so stop enoxaparin (thrombocytopenic) Admission and Anticipated Discharge Date Admission Date: March 22, 2024 Subjective says she is doing well, appetite and strength better Physical Exam 2 Physical Exam: PHYSICAL EXAMINATION Last 24h vital signs reviewed, see documentation in flowsheet General: sitting up in chair has finished lunch HEENT: Normocephalic, atraumatic, pupils round and equal, sclerae anicteric, no conjunctival injection, moist mucus membranes Lungs: Normal respiratory effort. Clear to auscultation bilaterally. No RRW Left upper chest incision healing well Heart: Regular rate and rhythm, no murmurs. No JVD Abdomen: Soft, protrudes, nontender, nondistended. Bowel sounds present. Extremities: Warm, dry, well-perfused. mild extremity edema. Psych: Normal affect and behavior Results & Data Results & Data Vital Signs (Past 12 Hours) Vital Signs Temp Pulse Pulse Resp BP Pulse Ox O2 Del Method 03/27/24 12:01 36.7 C 102 H 16 101/65 96 Room Air 03/27/24 11:02 98 H 18 95 Room Air 03/27/24 07:52 36.7 C 92 H 16 156/80 H 94 Room Air 03/27/24 07:45 Room Air 03/27/24 07:20 81 03/27/24 07:03 79 16 94 Room Air Laboratory Results 03/27/24 06:27 03/25/24 06:09 PG Care Time/CCT Total # of Minutes Spent Total Time Spent with Patient: Total time spent is greater than 50% in coordination of care (as documented) at patient's floor/unit and/or counseling patient: Coding Level of Care Code 94413 SUB INP/OBS CARE 2/35MIN Diagnoses Bacteremia due to Staphylococcus R78.81; B95.8 Anaplasmosis A77.49 Acute pulmonary edema J81.0 Pancytopenia D61.818 Weakness R53.1 Anemia D64.9 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; E06.3 Hypothyroidism type: due to Bryanna's thyroiditis Essential hypertension I10 Hypertension type: essential hypertension Malignant neoplasm of ovary, unspecified laterality C56.9 Laterality: unspecified laterality Hypoalbuminemia E88.09 (7) Hypothyroidism 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
[2024-03-28 07:48] LABS: Hemoglobin 8.6 g/dl (12.0-16.0); Mean Corpuscular Hemoglobin 29.2 pg (25.0-34.0); Mean Corpuscular Hgb Conc 31.9 g/dL (32.0-36.0); Mean Corpuscular Volume 91.5 fL (80.0-100.0); Mean Platelet Volume 10.5 fL (9.4-12.4); Platelet Count 90 K/uL (130-400); RDW Standard Deviation 53.1 fL (36.4-46.3); Red Blood Count 2.95 M/uL (4.20-5.40); White Blood Count 4.73 K/ul (4.8-10.8)
--- NOTE | 2024-03-28 18:00 | Discharge Summary ---
Date of Service March 28, 2024 Admission HPI Per Admitting Provider Simran Lopez is an 83yo female with history of ovarian cancer on chemotherapy (last treatment 3 weeks ago. Patient follows with Dr. Evans in [place]), HTN, prior VTE presenting with fatigue. She has had weakness and fatigue ongoing x 1 week as well as decreased blood pressure. She is previously on blood pressure medications but has not been takin it for the last week. This evening patient slid from the couch and was unable to get up due to generalized weakness. Her blood pressure was found to be low at 90/60 and she was feeling weak and lightheaded. She denies chest pain, cough SOB, congestion, abdominal pain, nausea, vomiting, diarrhea. She possibly had a fever this afternoon. No melena, hematochezia, hematuria. Reports adequate diet with ok intake. In the ER she is afebrile, hypotensive on arrival at 90/54 which improved after IVF - now 121/75 Principal Diagnosis coagulase-negative staph bacteremia related to port infection, anaplasmosis, pancytopenia Discharge Exam PHYSICAL EXAMINATION Last 24h vital signs reviewed, see documentation in flowsheet General: sitting in the chair as per her habit awake and alert, looks good HEENT: Normocephalic, atraumatic, pupils round and equal, sclerae anicteric, no conjunctival injection, moist mucus membranes Lungs: Normal respiratory effort. Clear to auscultation bilaterally. No RRW Left upper chest incision healing well Heart: Regular rate and rhythm, no murmurs. No JVD Abdomen: Soft, protrudes, nontender, nondistended. Bowel sounds present. Extremities: Warm, dry, well-perfused. no extremity edema. Psych: Normal affect and behavior Discharge Data Allergies Allergy/AdvReac Type Severity Reaction Status Date / Time piperacillin Allergy Intermediate hives Verified 03/22/24 00:58 tazobactam Allergy Intermediate hives Verified 03/22/24 00:58 oxaprozin AdvReac Intermediate FEET Verified 03/22/24 00:58 SWELLING, SKIN PEELING Consultations 03/22/24 00:04 ED Decision to Admit Stat 03/24/24 12:33 Consult Infectious Diseases Routine 03/24/24 14:11 Consult General Surgery Routine Procedures Performed Operation Date: 03/25/24 09:50 Actual Procedures p Infusaport Removal(Left) - Donavan Perry MD Ordered Studies Chest X-Ray 03/21/24 23:08 SINGLE VIEW CHEST CLINICAL HISTORY: Generalized weakness. FINDINGS: An AP, portable, upright chest radiograph is compared to study dated 09/26/2023. Correlation is made with chest CT dated 03/06/2024. A left subclavian central venous infusion port is unchanged in position. The heart is enlarged noting atherosclerotic calcification of the thoracic aorta. The pulmonary vasculature is noncongested. Chronic interstitial thickening is similar to previous. There is bibasilar scarring/atelectasis. No airspace consolidation or large pleural effusion is identified. Small pulmonary nodules are unchanged and were better assessed on the recent chest CT. No pneumothorax is seen. The skeletal structures are osteopenic. The bony thorax is grossly intact. Advanced arthritic change is seen in the shoulders. Calcified joint bodies are noted on the left. IMPRESSION: Cardiomegaly with no acute cardiopulmonary abnormality identified. ACT 112: Negative or not required by law. Electronically signed by: Oliver Schofield M.D. 03/22/2024 8:05 AM Chest X-Ray 03/23/24 14:07 XR chest 1V portable CLINICAL HISTORY: ?pulm edema? TECHNIQUE: Single frontal radiograph of the chest was obtained. Comparison: Comparison is made to chest radiograph 04/02/2024 FINDINGS: A port catheter is seen. Calcified aortic knob is seen. The lungs are clear. No evidence of pleural effusion or pneumothorax. IMPRESSION: No acute abnormality and in particular no evidence of pulmonary edema. ACT 112: Negative or not required by law. Electronically signed by: Migue Quevedo M.D. 03/23/2024 2:48 PM 03/28/24 07:04 03/25/24 06:09 Hospital Course (1) Bacteremia due to Staphylococcus: 83 y/o with Lt upper chest port undergoing chemotherapy for metastatic ovarian cancer presented with fever, malaise, pancytopenia. 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 No vegetations on TTE, normal EF -/4 bottles from ED speciated as CONS. Repeat blood cultures NGTD at 4 days out - infectious disease consulted this admission -Left upper chest port removed 03/[address] Perry, port tip culture no growth to date -continue cefazolin - 14d treatment planned post removal of port (03/25 - 04/07), longer duration of treatment because of knee hardware -placed US guided PIV -arranged home infusion, Home health - weekly CMP and CBC while on IV antibiotics, fax to Dr. Tobar. he was out of the office last week but I spoke with his nurse on Saturday and left a message regarding this -Port can be replaced in future once infection cleared if needed from an oncology standpoint. PT/OT recommended rehab stay but Simran strongly prefers home health with home infusion - has a good friend willing to help her with home antibiotics. 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 Volume status and EF was wnl on Echo same AM. no wheezing or dyspnea, has not recurred (4) Pancytopenia: she is 3 weeks out from last round of chemo; daughter states it is some form of immune-based treatment she receives her Rx in [place]: Dr. Joana Evans, [facility] [phone]. Faxed notes to provide update. WBC, hemoglobin, thrombocytopenia improving. Anaplasmosis and bacteremia will cause/contribute to this. - monitor CBC for resolution (5) Weakness: multifactorial - anaplasmosis infection, staph bacteremia, ovarian cancer, anemia, etc improving - home health PT/OT (6) Anemia: has been anemic since late 2022 ferritin is >1000 c/w inflammatory block, serum iron wnl 119 B12 955, folate >22 Hgb remains stable (7) Hypothyroidism: TSH wnl Continue Synthroid (8) HTN (hypertension): Patient had had hypotension on arrival and thus her HCTZ, amlodipine, and lisinopril were all held She appeared volume contracted upon ER presentation - resumed home medications (9) Ovarian cancer: with carcinomatosis/peritoneal mets 03/06/24 CT abd/pelvis -- "Lymph nodes Retroperitoneal: Retroperitoneal node previously measuring 15 mm now measures 8 mm in short axis. Additional nodes have likewise decreased in size. Pelvic: Interval decrease in size of right pelvic node previously measuring 22 mm in short axis, now 11 mm. Mesenteric: Mesenteric nodes have decreased in size, for example a right of midline node measures 18 mm, compared to 11 mm in the prior exam. Peritoneum: Overall decrease in peritoneal deposits. For example, a right paracolic gutter mass is significantly decreased from prior exam. There is trace ascites, improved from prior exam." 03/06/24 CT chest -- "IMPRESSION: Atelectasis is seen. Multiple stable pulmonary nodules as above. No evidence of metastatic disease above the diaphragm. Previously noted prediaphragmatic node has decreased in size." Thus, has had treatment response. Is on an immunological agent and her primary oncologist is in [place]. (10) Hypoalbuminemia: albumin fell from 3.5 --> 2.9 on day of admission likely contributed to acute pulmonary edema Total Time Total Time Spent Total Time Spent (In Minutes): I personally spent: 45 minutes today on clinical care activities including: reviewing chart notes and vital signs discussions with critical care physician assistant examining and counseling the patient writing orders, discharge prescriptions and instructions documentation Discharge Plan Discharge Items Patient Disposition: Home - Home Health Services Reason For Visit: HYPOTENSION, WEAKNESS Discharge Diagnosis: coagulase negative staph bacteremia due to port infection, anaplasmosis Activity: Resume your previous activity Non-emergency contact: Primary Care Provider and Oncologist Call non-emergency contact if: you have any medication questions, your symptoms worsen and you have a fever Follow-up/Referrals: Nicol Tobar MD [Primary Care Provider] - (PLEASE CALL YOUR PRIMARY CARE PROVIDER TO SCHEDULE A HOSPITAL DISCHARGE FOLLOW-UP APPOINTMENT WITIN 7-10 DAYS) Diet: Regular Addtl Attending Provider Instructions: You were treated for bloodstream infection with coagulase negative staph bacteria. This appears to be a port infection and your port was removed Continue home IV antibiotics to complete a total of 14 days from port removal (03/25 - 04/07) After that IV can be removed I spoke with Dr. Tobar's office - they will monitor weekly labs drawn by home health while you are on IV antibiotics For anaplasmosis, infectious disease doctor recommended 10 days of doxycycline Pending Studies at Discharge: Yes (repeat blood cultures are negative to date - finalize after 5 days) Stand-Alone Forms: My [facility], Smoking Cessation Medications and DC Order Prescriptions: New doxycycline hyclate 100 mg Capsule 100 mg PO BID Qty: 10 0RF cefazolin 2 gram recon soln 2 g IV Q8H Rx Instructions: Through 04/07/24 for coag neg staph bacteremia, completes 14d course Continued lisinopril 5 mg tablet 40 mg PO HS Patient Comments: 40 mg levothyroxine 150 mcg tablet 150 mcg PO DAILY Qty: 30 7RF Rx Instructions: Take one tablet by mouth once daily 30-45 minutes before any other oral intake. acetaminophen 650 mg tablet extended release 650 mg PO UD PRN (Reason: aches and pains) ascorbate calcium (vitamin C) 500 mg tablet 1 g PO QAM Patient Comments: jose alfredo c gabapentin [Neurontin] 100 mg capsule 300 mg PO TID Rx Instructions: 09/26/23 : pt reports she takes 200 mg twice daily. amlodipine 5 mg Tablet 5 mg PO QAM [id number] Tablet 1 tab PO QAM Patient Comments: + vitamin d Systane Complete PF 0.6 % Drops 1 drp OPHTHALMIC (EYE) UD PRN (Reason: when on elahere ) Patient Comments: to start day before chemo starts. Elahere 5 mg/mL Solution 0 mg IV UD Patient Comments: approved/awaiting scheduling for first dose. can affect eyes/will be on eye drops. Eye Drops For Chemo 1 dose UD PRN (Reason: when on Elahere ) hydrochlorothiazide 25 mg Tablet 25 mg PO QAM phenazopyridine [Pyridium] 200 mg tablet 200 mg PO Q8H PRN (Reason: pain) Qty: 10 0RF Discharge Orders: Discharge Order (Routine); Ordered 03/28/24 Ordered By: Elvira Delgadillo Admission Data Admit Date/Time: 03/22/24 00:39 Attending Provider: Elvira Delgadillo Admit Provider: Tasha Cobian Primary Care Provider: Nicol Tobar Other Providers: Tasha Cobian; Donavan Perry; [facility] Healthcare Other Interventions: Discharge Summary Assessment (RN) Last Done: 03/28/24 11:06 Coding Level of Care Code 21060 INP/OBS DISCH >30 MIN Diagnoses Bacteremia due to Staphylococcus R78.81; B95.8 Anaplasmosis A77.49 Acute pulmonary edema J81.0 Pancytopenia D61.818 Weakness R53.1 Anemia D64.9 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
== END 2024-03-28 12:29 | disposition home health service (06) | DRG 314 ==
LOC: ED 22:40 → SUATTDRO 03-22 00:39 → EDINP 03-22 00:39 → 2W 03-22 02:30

== ENCOUNTER 2025-02-24 09:43 | Inpatient (IN) ==
[2025-02-24 10:53] LABS: Basophils # (auto) 0.01 K/uL (0.00-0.20); Basophils % (auto) 0.1 %; Eosinophils # (auto) 0.02 K/uL (0.00-0.50); Eosinophils % (auto) 0.2 %; Hematocrit (blood only) 29.6 % (37.0-47.0); Hemoglobin 9.5 g/dl (12.0-16.0); Immature Granulocytes # (auto) 0.05 K/uL (0.01-0.20); Immature Granulocytes % (auto) 0.6 %; Lymphocytes # (auto) 0.95 K/uL (1.20-3.40); Lymphocytes % (auto) 10.9 %; Mean Corpuscular Hemoglobin 26.5 pg (25.0-34.0); Mean Corpuscular Hgb Conc 32.1 g/dL (32.0-36.0); Mean Corpuscular Volume 82.5 fL (80.0-100.0); Mean Platelet Volume 9.6 fL (9.4-12.4); Monocytes # (auto) 0.46 K/uL (0.11-0.59); Monocytes % (auto) 5.3 %; Neutrophils # (auto) 7.24 K/uL (1.40-6.50); Neutrophils % (auto) 82.9 %; Platelet Count 160 K/uL (130-400); RDW Coefficient of Variation 15.3 % (11.5-14.5); RDW Standard Deviation 46.5 fL (36.4-46.3); Red Blood Count 3.59 M/uL (4.20-5.40); White Blood Count 8.73 K/ul (4.8-10.8)
--- NOTE | 2025-02-24 10:56 | Emergency Department Note ---
Impression & Plan Gastroenteritis, Constipation, Cancer of peritoneum, Acute dehydration, GERD (gastroesophageal reflux disease) ED Provider Note NAME: ANH WEBSTER AGE: 84 SEX: F : 1940 ARRIVES VIA: Walk-In INFORMANT: Patient, ED PROVIDER(S): Ulices Millan MD CHIEF COMPLAINT: Constipation HPI: This an 84-year-old female presenting with constipation patient has history of ovarian cancer and started on chemotherapy, Doxil 70 mg. She notes that for the past 7 days she has not been able to move her bowels. She notes only slight mucus and occasional blood in her diaper. She does she has incontinence of bowel and bladder, since starting chemotherapy. Otherwise no fevers, chills. She reports no diarrhea, urinary burning. She does report nausea and vomiting at this time. ROS: See above HPI for pertinent positives & negatives. A total of 10 systems reviewed and were otherwise negative. PAST MEDICAL HISTORY: See Below PAST SURGICAL HISTORY: See Below FAMILY HISTORY: See Below SOCIAL HISTORY: See Below HOME MEDICATIONS: See Below ALLERGIES: See Below VITALS: See Below PHYSICAL EXAMINATION: General: Chronically unwell appearing Head: Normocephalic and atraumatic Eyes: Normal inspection, extraocular muscles intact Ear, nose, throat: Normal external exam Neck: Normal range of motion Respiratory: lungs clear to auscultation bilaterally Cardiovascular: Regular rate/rhythm, no murmur GI: Distended abdomen, tender Extremities: nontender, moves all extremities Neuro: The patient awake and alert, appropriately conversive, no focal deficits, symmetric faces Skin: Warm, dry, and intact MEDICAL DECISION MAKING: This is a 84-year-old female presenting for constipation. Concern for SBO/medication side effect. Patient does appear acutely ill and chronically unwell. She is nauseous, vomiting with pain. Will give IV Zofran and Protonix/famotidine. -No leukocytosis. Hemoglobin 9.5. Otherwise electrolytes within normal limits without creatinine elevation. Urinalysis does not obvious UTI. -CT imaging does show progressive metastatic disease including hepatic, lymphatic, peritoneal and omental disease with moderate blood and ascites. This was a large midline pelvic implant involving the vaginal cuff and posterior urinary bladder with vaginal invasion without obstruction. See other findings in the CAT scan as well. There is moderate fecal retention. -Based on patient's continued symptoms, signs of dehydration clinically, and getting a pass, will admit to the hospitalist service. Daughter does request therapeutic paracentesis at the request of her cancer physician at [facility]. - Care discussed with Dr. Delgadillo for admission Differential diagnosis: Dehydration, SBO, constipation, medication side effect, diverticulitis, appendicitis, cholecystitis Independent History obtained from: Friend and daughter Diagnostics interpreted by me: ECG: None Cardiac Monitoring: An order was placed for continuous cardiac monitoring. The monitor shows a rate of 92 with sinus rhythm. Past Med/Surg History Problem List (Updated 02/24/25 @ 17:40 by Ulices Millan MD) GERD (gastroesophageal reflux disease) (Acute) Acute dehydration (Acute) Cancer of peritoneum (Acute) Constipation (Acute) Gastroenteritis (Acute) Obstipation Malignant ascites Anaplasmosis Anemia (Acute) Microscopic hematuria Hypothyroidism Urinary frequency Stress incontinence Nocturia HTN (hypertension) Primary osteoarthritis of right knee Pelvic pain Medical History Bacteremia due to Staphylococcus Hypoalbuminemia Acute pulmonary edema Pancytopenia UTI (urinary tract infection) Port-A-Cath in place High blood pressure Thyroid disease Ovarian cancer Overactive bladder History of DVT (deep vein thrombosis) History of pulmonary embolism History of acute renal failure Peripheral neuropathy Hiatal hernia Hx: UTI (urinary tract infection) Surgical History History of total right knee replacement History of vascular access device S/P insertion of IVC (inferior vena caval) filter History of colonoscopy H/O arthroscopic knee surgery History of left knee replacement H/O abdominal hysterectomy (~2017) History of back surgery (~2016) Family History Other No family history of adverse response to anesthesia Social History Smoking Status: Never smoker Second Hand Exposure: No; Do You Dip or Chew Tobacco: No; Hx Alcohol Use: No Hx Substance Use: No Preferred Language: Canadian Communication Ability: Effective Pediatric Nurse Practitioner Required: No Beliefs That Will Affect Care: None marital status: Current Living Situation: Alone current occupational status: retired How many Children do You have: 2 Feels Safe at Home: Yes Assistive Devices: Cane and Walker Allergies Allergies Allergy/AdvReac Type Severity Reaction Status Date / Time piperacillin Allergy Intermediate hives Verified 02/24/25 13:02 tazobactam Allergy Intermediate hives Verified 02/24/25 13:02 oxaprozin AdvReac Intermediate FEET Verified 02/24/25 13:02 SWELLING, SKIN PEELING Home Meds Home Medications Medication Instructions Recorded Confirmed acetaminophen 650 mg 650 mg PO BID aches and pains 03/13/23 02/24/25 tablet,extended release gabapentin 100 mg capsule 300 mg PO TID neuropathy 03/13/23 02/24/25 (Neurontin) ascorbate calcium (vitamin C) 500 1,000 mg PO DAILY 02/24/25 02/24/25 mg tablet calcium 333 mg-vit D3 133 1 tab PO DAILY 02/24/25 02/24/25 unit-magnesium 133 mg-zinc 5 mg tablet (Spike Mag Zinc Plus D3) doxorubicin, peg-liposomal 2 mg/mL 0 mg IV DIRECTED 02/24/25 02/24/25 intravenous suspension (Doxil) letrozole 2.5 mg tablet 2.5 mg PO DAILY 02/24/25 02/24/25 naproxen sodium 220 mg tablet 220 mg PO DAILY 02/24/25 02/24/25 (Aleve) ondansetron HCl 8 mg tablet 8 mg PO Q8H PRN Nausea And Vomiting 02/24/25 02/24/25 prochlorperazine maleate 10 mg 10 mg PO Q6H PRN Nausea And 02/24/25 02/24/25 tablet Vomiting pyridoxine (vitamin B6) 100 mg 100 mg PO DAILY 02/24/25 02/24/25 tablet (Vitamin B-6) Previous Rx's Medication Instructions Recorded levothyroxine 137 mcg tablet 137 mcg PO DAILY #30 tabs 01/15/25 Results & Data (ED) Vital Signs Vital Signs - 24 hr 02/24/25 09:46 02/24/25 10:39 02/24/25 10:53 Temperature 36.6 C Temperature Source Temporal Artery Scan Pulse Rate 62 80 Pulse Rate [Apical] 85 Respiratory Rate 14 16 Respiratory Effort / Characteristics Non-Labored Spontaneous Respiratory Depth Normal Respiratory Pattern Regular Blood Pressure 123/84 Blood Pressure [Right Arm] 153/80 H Blood Pressure Mean 97 Blood Pressure Mean [Right Arm] 104 Pulse Oximetry 95 Oxygen Delivery Method Room Air Sepsis New/Unexplained Change in Mental Status No Sepsis Action Taken by Nursing No Action Required 02/24/25 11:38 02/24/25 13:00 02/24/25 14:51 Temperature Temperature Source Pulse Rate 89 Pulse Rate [Apical] 80 87 Respiratory Rate 18 18 Respiratory Effort / Characteristics Respiratory Depth Respiratory Pattern Blood Pressure Blood Pressure [Right Arm] 141/81 H 153/85 H Blood Pressure Mean Blood Pressure Mean [Right Arm] 101 107 Pulse Oximetry 91 94 Oxygen Delivery Method Room Air Room Air Sepsis New/Unexplained Change in Mental Status Sepsis Action Taken by Nursing 02/24/25 14:54 02/24/25 15:14 02/24/25 16:00 Temperature Temperature Source Pulse Rate Pulse Rate [Apical] 84 86 90 Respiratory Rate 22 21 23 Respiratory Effort / Characteristics Non-Labored Spontaneous Respiratory Depth Normal Respiratory Pattern Blood Pressure Blood Pressure [Right Arm] 144/75 H 139/76 150/79 H Blood Pressure Mean Blood Pressure Mean [Right Arm] 98 97 102 Pulse Oximetry 96 94 96 Oxygen Delivery Method Room Air Room Air Room Air Sepsis New/Unexplained Change in Mental Status Sepsis Action Taken by Nursing 02/24/25 16:30 02/24/25 17:00 Temperature Temperature Source Pulse Rate Pulse Rate [Apical] 89 92 H Respiratory Rate 18 19 Respiratory Effort / Characteristics Respiratory Depth Respiratory Pattern Blood Pressure Blood Pressure [Right Arm] 125/73 128/80 Blood Pressure Mean Blood Pressure Mean [Right Arm] 90 96 Pulse Oximetry 96 97 Oxygen Delivery Method Room Air Room Air Sepsis New/Unexplained Change in Mental Status Sepsis Action Taken by Nursing Laboratory Data 02/24/25 10:32 02/24/25 10:32 Lab Results 02/24/25 02/24/25 Range/Units 10:32 16:27 WBC 8.73 (4.8-10.8) K/ul RBC 3.59 L (4.20-5.40) M/uL Hgb 9.5 L (12.0-16.0) g/dl Hct 29.6 L (37.0-47.0) % MCV 82.5 (80.0-100.0) fL MCH 26.5 (25.0-34.0) pg MCHC 32.1 (32.0-36.0) g/dL RDW Std Deviation 46.5 H (36.4-46.3) fL RDW Coeff of Sydni 15.3 H (11.5-14.5) % Plt Count 160 (130-400) K/uL MPV 9.6 (9.4-12.4) fL Immature Gran % (Auto) 0.6 % Neut % (Auto) 82.9 % Lymph % (Auto) 10.9 % [place] % (Auto) 5.3 % Eos % (Auto) 0.2 % Baso % (Auto) 0.1 % Neut # (Auto) 7.24 H (1.40-6.50) K/uL Lymph # (Auto) 0.95 L (1.20-3.40) K/uL [place] # (Auto) 0.46 (0.11-0.59) K/uL Eos # (Auto) 0.02 (0.00-0.50) K/uL Baso # (Auto) 0.01 (0.00-0.20) K/uL Immature Gran # (Auto) 0.05 (0.01-0.20) K/uL Sodium 136 (136-145) mmol/L Potassium 4.2 (3.5-5.1) mmol/L Chloride 99 (98-107) mmol/L Carbon Dioxide 29 (21-32) mmol/L Anion Gap 8 (3-11) BUN 41 H (6-23) mg/dl Creatinine 1.03 (0.6-1.2) mg/dl Est Cr Clr Drug Dosing 42.6 ml/min eGFR 54.29 BUN/Creatinine Ratio 39.8 H (10-20) Glucose 113 H (70-99(Fasting)) mg/dl Calcium 9.2 (8.6-10.3) mg/dl Total Bilirubin 0.5 (0.2-1.0) mg/dl AST 22 (13-39) U/L ALT 13 (7-52) U/L Alkaline Phosphatase 71 (34-104) U/L Total Protein 7.1 (6.0-8.3) gm/dl Albumin 3.4 (3.4-5.0) gm/dl Globulin 3.7 (2.5-4.0) gm/dl Albumin/Globulin Ratio 0.9 (0.9-2) Lipase 36 (11-82) U/L Urine Color Yellow Urine Appearance Clear (Clear) Urine pH 5.0 (4.5-7.5) Ur Specific [place] > 1.045 H (1.000-1.030) Urine Protein 2+ H (Negative) Urine Glucose (UA) Negative (Negative) Urine Ketones Negative (Negative) Urine Blood 1+ H (Negative) Urine Nitrite Negative (Negative) Urine Bilirubin Negative (Negative) Urine Urobilinogen Negative (Negative) Ur Leukocyte Esterase Negative (Negative) Urine WBC (Auto) 6-10 H (0-5) /hpf Urine RBC (Auto) 6-10 H (0-2) /hpf U Hyaline Cast (Auto) 6-10 H (0-2) /lpf U Epithel Cells (Auto) 0-2 (0-2) /hpf Urine Bacteria (Auto) None Seen (None Seen) Urine Comment Administered Medications Discontinued Medications Bisacodyl (Bisacodyl 10 Mg Supp) 10 mg UT NOW STA Stop: 02/24/25 13:38 Last Admin: 02/24/25 14:47 Dose: 10 mg Documented By: MARGAUX Sodium Chloride (Nss) 1,000 mls @ 999 mls/hr IV .Q1H1M ONE Stop: 02/24/25 11:56 Last Infusion: 02/24/25 12:37 Dose: Infused Documented By: Admin: 02/24/25 11:07 Dose: 999 mls/hr Documented By: MARGAUX Pantoprazole Sodium (Protonix) 40 mg in 10 mls @ 5 mls/min IV NOW ONE Stop: 02/24/25 11:43 Last Admin: 02/24/25 11:52 Dose: 5 mls/min Documented By: MARGAUX Famotidine (Pepcid 20mg Iv Push) 20 mg in 5 mls @ 2.5 mls/min IV NOW STA Stop: 02/24/25 11:43 Last Admin: 02/24/25 11:52 Dose: 2.5 mls/min Documented By: MARGAUX Ioversol (Optiray 320 100ml) 94 ml IV ONCE ONE Stop: 02/24/25 11:21 Last Admin: 02/24/25 11:20 Dose: 94 ml Documented By: MICHEAL Ondansetron HCl (Ondansetron Inj 2 Mg/Ml 2 Ml Vial) 4 mg IV NOW STA Stop: 02/24/25 10:57 Last Admin: 02/24/25 11:07 Dose: 4 mg Documented By: MARGAUX Imaging Data Radiologist's Impression: Abdomen/Pelvis CT 02/24/25 10:[address] WITH IV CONTRAST CT DOSE: 947.45 mGy.cm HISTORY: Acute generalized abdominal pain with possible small bowel obstruction. ovarian ca, concern for SBO, no BM x7 days TECHNIQUE: Multiaxial CT images of the abdomen and pelvis were performed following the IV administration of 94 cc of Optiray, A dose lowering technique was utilized adhering to the principles of ALARA. COMPARISON STUDY: 11/27/2024, 03/06/2024, 11/28/2023 FINDINGS: Cardiomegaly with moderate coronary artery calcifications. Trace right and small left pleural effusions. Mild dependent subsegmental bibasilar atelectasis. No pneumatosis or pneumoperitoneum. Unchanged appearance of the spleen was unremarkable pancreas and right adrenal gland. Unchanged mild nodular left adrenal gland thickening. Cholelithiasis without CT evidence of acute cholecystitis. There are several ill-defined hypodense liver lesions which are not clearly seen on the prior study suggestive of metastasis including a 1.9 cm right hepatic lobe lesion on image 73. A left hepatic lobe lesion centered around the falciform ligament measures approximately 3 cm. Contrast within the collecting systems. Subcentimeter hypodensities of the left kidney are too small to characterize. No hydronephrosis. Decompressed urinary bladder with wall thickening. Atherosclerosis of the aorta without aneurysm. Pathologic lymphadenopathy includes a right inguinal lymph node measuring 1.4 cm on image 306, previously 8 mm. A 2.4 x 1.7 cm aortocaval lymph node on image 174 previously measured 2.3 x 1.4 cm. Distal esophageal wall thickening with small to moderate hiatal hernia. Wall thickening involving several loops of left upper quadrant jejunum which measure up to 2.6 cm transversely. There is circumferential anal rectal wall thickening with irregular enhancement secondary to the previously noted midline pelvic metastatic nodules abutting the vaginal cuff and posterior urinary bladder now with invasion of the rectum, nicely seen on image 249 series 3 measuring up to 4.2 x 4.6 x 4.9 cm. There is no upstream dilation. Moderate fecal retention. Moderate abdominopelvic ascites with progressively worsened peritoneal/omental carcinomatosis. Conglomerate disease within the right abdomen measures up to 14 cm in image 139. Additional peritoneal nodules extend into the inguinal canals with bilateral fluid and fat filled inguinal hernias. No acute fracture. Lumbar levoscoliosis. IMPRESSION: 1. Progressive metastatic disease as above includes hepatic, lymphatic, peritoneal and omental disease with moderate malignant ascites. 2. Large midline pelvic implant involving the vaginal cuff and posterior urinary bladder demonstrates rectal invasion without obstruction. 3. No high-grade bowel obstruction or pneumoperitoneum. 4. Several loops of jejunum are fluid-filled with circumferential wall thickening and measure within the upper limits of normal. Differential considerations include ileus, enteritis versus low-grade obstruction. Follow-up recommended. 5. Moderate fecal retention. 6. Additional findings as above. ACT 112: Negative or not required by law. The above report was generated using voice recognition software. It may contain grammatical, syntax or spelling errors. Electronically signed by: Bryan Blum M.D. 02/24/2025 11:58 AM Paracentesis Ultrasound 02/24/25 13:37 ULTRASOUND-GUIDED PARACENTESIS CLINICAL HISTORY: Ascites PROCEDURE: Procedure and risks were explained. Informed consent was obtained. A final timeout was completed. The abdomen was prepped and draped in sterile fashion. 1% lidocaine was utilized for skin anesthesia. Utilizing ultrasound guidance, a 5 Wolof safety centesis catheter was advanced into the right lower quadrant pocket of ascites. Ultrasound images were obtained. 2.5 L of ascites fluid was removed. The catheter was removed and Band- Aid applied. The patient tolerated the procedure well. Vital signs will be monitored postprocedure. IMPRESSION: Ultrasound-guided paracentesis as above. Performed, dictated, and signed by Jimmie Mccallum PA-C; to be co-signed by Dr. Sim Christensen. Electronically signed by: Sim Christensen M.D. 02/24/2025 4:03 PM Discharge Plan Visit Data Chief Complaint: GI Assessment Stated Complaint: BOWEL BLOCKAGE ED Provider: Ulices Millan Discharge Problem: Gastroenteritis, Constipation, Cancer of peritoneum, Acute dehydration, GERD (gastroesophageal reflux disease) Patient Disposition: Admitted As Inpatient Condition: Fair Forms Stand Alone Forms: [employer] Prescriptions Prescriptions: No Action levothyroxine 137 mcg tablet 137 mcg PO DAILY Qty: 30 5RF acetaminophen 650 mg tablet extended release 650 mg PO BID gabapentin [Neurontin] 100 mg capsule 300 mg PO TID Rx Instructions: 09/26/23 : pt reports she takes 200 mg twice daily. doxorubicin, peg-liposomal [Doxil] 2 mg/mL Suspension 0 mg IV DIRECTED Rx Instructions: Caregiver unsure of strength at this date/time. First treated was done on 02/18/25 ondansetron HCl 8 mg tablet 8 mg PO Q8H PRN (Reason: Nausea And Vomiting) prochlorperazine maleate 10 mg tablet 10 mg PO Q6H PRN (Reason: Nausea And Vomiting) ascorbate calcium (vitamin C) [Patsy-C] 500 mg Tablet 1,000 mg PO DAILY naproxen sodium [Aleve] 220 mg Tablet 220 mg PO DAILY pyridoxine (vitamin B6) [Vitamin B-6] 100 mg Tablet 100 mg PO DAILY letrozole 2.5 mg tablet 2.5 mg PO DAILY calcium carb-D3-mag ox-zinc ox [Spike Mag Zinc Plus D3] 333 mg-133 unit -133 mg- 5 mg Tablet 1 tab PO DAILY Referrals Referrals: Nicol Tobar MD [Primary Care Provider] -
[2025-02-24] MEDS: ONDANSETRON INJ 2 MG/ML 2 ML VIAL IV STA (11:07)
[2025-02-24] MEDS: SODIUM CHLORIDE 0.9% 1,000 ML IV ONE (11:07)
[2025-02-24 11:11] LABS: Albumin Globulin Ratio 0.9 (0.9-2); Albumin Level 3.4 gm/dl (3.4-5.0); BUN Creatinine Ratio 39.8 (10-20); Bilirubin,Total 0.5 mg/dl (0.2-1.0); Calcium 9.2 mg/dl (8.6-10.3); Creatinine Clr Calc Pharmacy 42.6 ml/min; Globulin 3.7 gm/dl (2.5-4.0); Potassium 4.2 mmol/L (3.5-5.1); Total Protein 7.1 gm/dl (6.0-8.3)
[2025-02-24] MEDS: OPTIRAY 320 100ml IV ONE (11:20)
[2025-02-24] MEDS: PANTOprazole 40 MG/10 ML SYR IV ONE (11:52)
[2025-02-24] MEDS: FAMOTIDINE 20MG IV PUSH 20 MG/5 ML SYR IV STA (11:52)
--- NOTE | 2025-02-24 12:00 | CT Scan Report ---
ABDOMEN AND PELVIS CT WITH IV CONTRAST CT DOSE: 947.45 mGy.cm HISTORY: Acute generalized abdominal pain with possible small bowel obstruction. ovarian ca, concern for SBO, no BM x7 days TECHNIQUE: Multiaxial CT images of the abdomen and pelvis were performed following the IV administrat ion of 94 cc of Optiray, A dose lowering technique was utilized adhering to the principles of ALARA. COMPARISON STUDY: 11/27/2024, 03/06/2024, 11/28/2023 FINDINGS: Cardiomegaly with moderate coronary artery calcifications. Trace right and small left pleur al effusions. Mild dependent subsegmental bibasilar atelectasis. No pneumatosis or pneumoperitoneum. Unchanged appearance of the spleen was unremarkable pancreas and right adrenal gland. Unchanged mild nodular left adrenal gland thickening. Cholelithiasis without CT evidence of acute cholecystitis. The re are several ill-defined hypodense liver lesions which are not clearly seen on the prior study sugg estive of metastasis including a 1.9 cm right hepatic lobe lesion on image 73. A left hepatic lobe le dominick centered around the falciform ligament measures approximately 3 cm. Contrast within the collecting systems. Subcentimeter hypodensities of the left kidney are too small to characterize. No hydronephrosis. Decompressed urinary bladder with wall thickening. Atherosclerosi s of the aorta without aneurysm. Pathologic lymphadenopathy includes a right inguinal lymph node miriam uring 1.4 cm on image 306, previously 8 mm. A 2.4 x 1.7 cm aortocaval lymph node on image 174 previou sly measured 2.3 x 1.4 cm. Distal esophageal wall thickening with small to moderate hiatal hernia. Wall thickening involving sev eral loops of left upper quadrant jejunum which measure up to 2.6 cm transversely. There is circumfer ential anal rectal wall thickening with irregular enhancement secondary to the previously noted midli ne pelvic metastatic nodules abutting the vaginal cuff and posterior urinary bladder now with invasio n of the rectum, nicely seen on image 249 series 3 measuring up to 4.2 x 4.6 x 4.9 cm. There is no up stream dilation. Moderate fecal retention. Moderate abdominopelvic ascites with progressively worsene d peritoneal/omental carcinomatosis. Conglomerate disease within the right abdomen measures up to 14 cm in image 139. Additional peritoneal nodules extend into the inguinal canals with bilateral fluid a nd fat filled inguinal hernias. No acute fracture. Lumbar levoscoliosis. IMPRESSION: 1. Progressive metastatic disease as above includes hepatic, lymphatic, peritoneal and omental diseas e with moderate malignant ascites. 2. Large midline pelvic implant involving the vaginal cuff and posterior urinary bladder demonstrates rectal invasion without obstruction. 3. No high-grade bowel obstruction or pneumoperitoneum. 4. Several loops of jejunum are fluid-filled with circumferential wall thickening and measure within the upper limits of normal. Differential considerations include ileus, enteritis versus low-grade obs truction. Follow-up recommended. 5. Moderate fecal retention. 6. Additional findings as above. ACT 112: Negative or not required by law. The above report was generated using voice recognition software. It may contain grammatical, syntax o r spelling errors. Electronically signed by: Bryan Blum M.D. 02/24/2025 11:58 AM
--- NOTE | 2025-02-24 13:51 | History & Physical Report ---
<Statement entered by Elvira Delgadillo MD - 02/24/25 16:23> I have reviewed vital signs, chart notes, labs and imaging. I have personally seen, evaluated and examined the patient. I have also discussed the management of the patient with the CELESTE and I agree with the exam findings documented in the history and physical examination and the documented assessment and plan unless otherwise stated below. Simran Lopez is here with progressive metastatic/stage IV ovarian cancer, nausea vomiting and obstipation. She has had her first treatment with a new chemotherapy infusion last week. She had anorexia but no nausea vomiting until the last 1 to 2 days. No bowel movement for 7 days. When I saw her she had already had paracentesis for 2.5 L and abdominal discomfort was somewhat improved. She had a Dulcolax suppository in the ED and had a few morgan of small hard BM on my exam she is very pleasant awake and alert oriented x 4 she is somewhat pale heart is regular no murmurs rubs or gallops lungs clear to auscultation bilaterally abdomen is mildly distended and mildly diffusely tender to palpation it is not tympanic, skin is warm dry no rashes, no lower extremity edema no calf swelling A/P: Progressive stage IV ovarian cancer now with ascites presumed malignant, obstipation versus partial small bowel obstruction or enteritis we will continue treating obstipation with an enema, we will avoid p.o. laxatives until she is moving her bowels because of the possibility of SBO. Okay for sips/chips and small amounts of clears. I did warn her that if she has increasing nausea vomiting and distention she will require an NG tube. Her oncologist is Dr. Huggins in [place] with [facility] Date of Service February 24, 2025 Assessment & Plan (1) Obstipation: (2) Malignant ascites: (3) Ovarian cancer: (4) Hypothyroidism: Plan #Obstipation - Admit to med/surg - NPO except meds and ice chips - STAT Dulcolax suppository, if ineffective will order fleets enema - Start bowel regimen including Miralax and Colace - Zofran 4mg IV q6 prn n/v #Metastatic ovarian cancer w/ malignant ascites - Consult IR for US-guided therapeutic paracentesis - Follow up with [facility] cancer care #Hypothyroidism - Continue levothyroxine Lovenox for VTE ppx given she is high risk with metastatic cancer. AM labs ordered. Above plan of care has been d/w Dr. Delgadillo who will also see and evaluate this patient. Further orders will be implemented as clinical course warrants. History of Present Illness Chief Complaint: Abdominal pain, n/v Primary Care Provider: Nicol Tobar MD Simran is a pleasant 84 yo F with known metastatic ovarian cancer who presents to the ER today accompanied by her friend and daughter who reports c/o n/v, abdominal pain and constipation. She was started on a new chemotherapy drug last week and reports that she hasn't had a BM since last . She follows for her cancer care with [facility] in [place]. Prior to that, she was moving her bowels regularly which was once a day for her. She had nausea and vomiting overnight with diffuse abdominal pain. She reports no fever or chills. She vomited shortly after taking her Synthroid this AM and has had no further vomiting since. In the ER, her CTAP demonstrates progressive metastatic disease including hepatic, lymphatic, peritoneal, and omental disease with moderate malignant ascites and moderate fecal retention. She has been medicated with a dose of Zofran, Protonix and Pepcid and received 1L of NSS. She has been referred to hospital medicine team for admission. Allergies Allergy/AdvReac Type Severity Reaction Status Date / Time piperacillin Allergy Intermediate hives Verified 02/24/25 13:02 tazobactam Allergy Intermediate hives Verified 02/24/25 13:02 oxaprozin AdvReac Intermediate FEET Verified 02/24/25 13:02 SWELLING, SKIN PEELING Home Medications Medication Instructions Recorded Confirmed Type acetaminophen 650 mg 650 mg PO BID aches and pains 03/13/23 02/24/25 History tablet,extended release gabapentin 100 mg capsule 300 mg PO TID neuropathy 03/13/23 02/24/25 History (Neurontin) levothyroxine 137 mcg tablet 137 mcg PO DAILY #30 tabs 01/15/25 02/24/25 Rx ascorbate calcium (vitamin C) 500 1,000 mg PO DAILY 02/24/25 02/24/25 History mg tablet calcium 333 mg-vit D3 133 1 tab PO DAILY 02/24/25 02/24/25 History unit-magnesium 133 mg-zinc 5 mg tablet (Spike Mag Zinc Plus D3) doxorubicin, peg-liposomal 2 mg/mL 0 mg IV DIRECTED 02/24/25 02/24/25 History intravenous suspension (Doxil) letrozole 2.5 mg tablet 2.5 mg PO DAILY 02/24/25 02/24/25 History naproxen sodium 220 mg tablet 220 mg PO DAILY 02/24/25 02/24/25 History (Aleve) ondansetron HCl 8 mg tablet 8 mg PO Q8H PRN Nausea And Vomiting 02/24/25 02/24/25 History prochlorperazine maleate 10 mg 10 mg PO Q6H PRN Nausea And 02/24/25 02/24/25 History tablet Vomiting pyridoxine (vitamin B6) 100 mg 100 mg PO DAILY 02/24/25 02/24/25 History tablet (Vitamin B-6) Past Med/Surg History Problem List (Updated 02/24/25 @ 13:47 by Carmenza Morton PA-C) Obstipation Malignant ascites Anaplasmosis Anemia (Acute) Microscopic hematuria Hypothyroidism Urinary frequency Stress incontinence Nocturia HTN (hypertension) Primary osteoarthritis of right knee Pelvic pain Medical History Bacteremia due to Staphylococcus Hypoalbuminemia Acute pulmonary edema Pancytopenia UTI (urinary tract infection) Port-A-Cath in place High blood pressure Thyroid disease Ovarian cancer Overactive bladder History of DVT (deep vein thrombosis) History of pulmonary embolism History of acute renal failure Peripheral neuropathy Hiatal hernia Hx: UTI (urinary tract infection) Surgical History History of total right knee replacement History of vascular access device S/P insertion of IVC (inferior vena caval) filter History of colonoscopy H/O arthroscopic knee surgery History of left knee replacement H/O abdominal hysterectomy (~2017) History of back surgery (~2016) Family History Other No family history of adverse response to anesthesia Social History Smoking Status: Never smoker Second Hand Exposure: No; Do You Dip or Chew Tobacco: No; Hx Alcohol Use: No Hx Substance Use: No Preferred Language: Turkmen Communication Ability: Effective Jamb Cutter Required: No Beliefs That Will Affect Care: None marital status: Current Living Situation: Alone current occupational status: retired How many Children do You have: 2 Feels Safe at Home: Yes Assistive Devices: Cane and Walker Review of Systems 2 Review of Systems: All systems reviewed and are unremarkable except as noted in HPI and below. Denies fever, chills, fatigue, headache, nasal congestion, sore throat, cough, chest pain, shortness of breath, palpitations, orthopnea, PND, diarrhea, constipation, dysuria, hematuria, frequency, back pain, joint pain or swelling, easy bruising or bleeding, skin lesions or rashes. Physical Exam 2 Physical Exam: GENERAL: 84 yo well-nourished elderly WF. No distress. LUNGS: Clear to auscultation bilaterally. No accessory muscle use. No W/R/R. CARDIOVASCULAR: Regular rate and rhythm +murmur. ABDOMEN: Belly is taunt with moderate distension and diffuse tenderness to palpation. Hypoactive BS. EXTREMITIES: No edema. Non-tender. Peripheral pulses +2/4. NEUROLOGIC: A&O x3. No focal neurological deficits. PSYCHIATRIC: Cooperative. Appropriate mood and affect. SKIN: Warm, dry, intact. No rashes or lesions. Results & Data Results & Data Vital Signs (Past 12 Hours) Vital Signs Temp Pulse Pulse Resp BP BP Pulse Ox 02/24/25 13:00 87 18 153/85 H 94 02/24/25 11:38 80 18 141/81 H 91 02/24/25 10:53 85 16 153/80 H 02/24/25 10:39 80 02/24/25 09:46 36.6 C 62 14 123/84 95 O2 Del Method 02/24/25 13:00 Room Air 02/24/25 11:38 Room Air 02/24/25 10:53 02/24/25 10:39 02/24/25 09:46 Room Air Laboratory Results 02/24/25 10:32 02/24/25 10:32 Diagnostic Findings Abdomen/Pelvis CT 02/24/25 10:[address] WITH IV CONTRAST CT DOSE: 947.45 mGy.cm HISTORY: Acute generalized abdominal pain with possible small bowel obstruction. ovarian ca, concern for SBO, no BM x7 days TECHNIQUE: Multiaxial CT images of the abdomen and pelvis were performed following the IV administration of 94 cc of Optiray, A dose lowering technique was utilized adhering to the principles of ALARA. COMPARISON STUDY: 11/27/2024, 03/06/2024, 11/28/2023 FINDINGS: Cardiomegaly with moderate coronary artery calcifications. Trace right and small left pleural effusions. Mild dependent subsegmental bibasilar atelectasis. No pneumatosis or pneumoperitoneum. Unchanged appearance of the spleen was unremarkable pancreas and right adrenal gland. Unchanged mild nodular left adrenal gland thickening. Cholelithiasis without CT evidence of acute cholecystitis. There are several ill-defined hypodense liver lesions which are not clearly seen on the prior study suggestive of metastasis including a 1.9 cm right hepatic lobe lesion on image 73. A left hepatic lobe lesion centered around the falciform ligament measures approximately 3 cm. Contrast within the collecting systems. Subcentimeter hypodensities of the left kidney are too small to characterize. No hydronephrosis. Decompressed urinary bladder with wall thickening. Atherosclerosis of the aorta without aneurysm. Pathologic lymphadenopathy includes a right inguinal lymph node measuring 1.4 cm on image 306, previously 8 mm. A 2.4 x 1.7 cm aortocaval lymph node on image 174 previously measured 2.3 x 1.4 cm. Distal esophageal wall thickening with small to moderate hiatal hernia. Wall thickening involving several loops of left upper quadrant jejunum which measure up to 2.6 cm transversely. There is circumferential anal rectal wall thickening with irregular enhancement secondary to the previously noted midline pelvic metastatic nodules abutting the vaginal cuff and posterior urinary bladder now with invasion of the rectum, nicely seen on image 249 series 3 measuring up to 4.2 x 4.6 x 4.9 cm. There is no upstream dilation. Moderate fecal retention. Moderate abdominopelvic ascites with progressively worsened peritoneal/omental carcinomatosis. Conglomerate disease within the right abdomen measures up to 14 cm in image 139. Additional peritoneal nodules extend into the inguinal canals with bilateral fluid and fat filled inguinal hernias. No acute fracture. Lumbar levoscoliosis. IMPRESSION: 1. Progressive metastatic disease as above includes hepatic, lymphatic, peritoneal and omental disease with moderate malignant ascites. 2. Large midline pelvic implant involving the vaginal cuff and posterior urinary bladder demonstrates rectal invasion without obstruction. 3. No high-grade bowel obstruction or pneumoperitoneum. 4. Several loops of jejunum are fluid-filled with circumferential wall thickening and measure within the upper limits of normal. Differential considerations include ileus, enteritis versus low-grade obstruction. Follow-up recommended. 5. Moderate fecal retention. 6. Additional findings as above. ACT 112: Negative or not required by law. The above report was generated using voice recognition software. It may contain grammatical, syntax or spelling errors. Electronically signed by: Bryan Blum M.D. 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
[2025-02-24] MEDS: bisacodyL 10 MG SUPP PR STA (14:47)
--- NOTE | 2025-02-24 15:24 | Ultrasound Report ---
ULTRASOUND-GUIDED PARACENTESIS CLINICAL HISTORY: Ascites PROCEDURE: Procedure and risks were explained. Informed consent was obtained. A final timeout was com pleted. The abdomen was prepped and draped in sterile fashion. 1% lidocaine was utilized for skin ane sthesia. Utilizing ultrasound guidance, a 5 Tajik safety centesis catheter was advanced into the right lower quadrant pocket of ascites. Ultrasound images were obtained. 2.5 L of ascites fluid was removed. The catheter was removed and Band-Aid applied. The patient tolerated the procedure well. Vital signs will be monitored postprocedure. IMPRESSION: Ultrasound-guided paracentesis as above. Performed, dictated, and signed by Jimmie Mccallum PA-C; to be co-signed by Dr. Sim Christensen. Electronically signed by: Sim Christensen M.D. 02/24/2025 4:03 PM
[2025-02-24 16:52] LABS: Appearance Urine Clear (Clear); Bacteria Urine Automated None Seen (None Seen); Bilirubin Urine Negative (Negative); Blood Urine 1+ (Negative); Color Urine Yellow; Epithelial Cell Urine Auto 0-2 /hpf (0-2); Glucose Urine UA Negative (Negative); Ketones Urine Negative (Negative); Leukocyte Esterase Urine Negative (Negative); Nitrite Urine Negative (Negative); Protein Urine 2+ (Negative); Specific Gravity Urine > 1.045 (1.000-1.030); Urobilinogen Urine Negative (Negative)
[2025-02-24] MEDS ORDERED: ALUMINUM/MAGNESIUM SUSP 30 ML UDC PO PRN (18:59)
[2025-02-24] MEDS: DOCUSATE SODIUM 100 MG CAP PO SCH (20:45)
[2025-02-24] MEDS: GABAPENTIN 300 MG CAP PO SCH (20:45)
[2025-02-25] MEDS: LEVOTHYROXINE SODIUM 137 MCG TABLET PO SCH (05:36)
[2025-02-25 06:12] LABS: Basophils # (auto) 0.02 K/uL (0.00-0.20); Basophils % (auto) 0.2 %; Eosinophils # (auto) 0.05 K/uL (0.00-0.50); Eosinophils % (auto) 0.6 %; Hematocrit (blood only) 28.3 % (37.0-47.0); Hemoglobin 9.1 g/dl (12.0-16.0); Immature Granulocytes # (auto) 0.06 K/uL (0.01-0.20); Immature Granulocytes % (auto) 0.7 %; Lymphocytes # (auto) 0.94 K/uL (1.20-3.40); Lymphocytes % (auto) 11.5 %; Mean Corpuscular Hemoglobin 26.9 pg (25.0-34.0); Mean Corpuscular Hgb Conc 32.2 g/dL (32.0-36.0); Mean Corpuscular Volume 83.7 fL (80.0-100.0); Mean Platelet Volume 9.3 fL (9.4-12.4); Monocytes # (auto) 0.37 K/uL (0.11-0.59); Monocytes % (auto) 4.5 %; Neutrophils % (auto) 82.5 %; Platelet Count 145 K/uL (130-400); RDW Coefficient of Variation 15.6 % (11.5-14.5); RDW Standard Deviation 47.1 fL (36.4-46.3); Red Blood Count 3.38 M/uL (4.20-5.40); White Blood Count 8.14 K/ul (4.8-10.8)
[2025-02-25 06:27] LABS: Albumin Level 3.1 gm/dl (3.4-5.0); BUN Creatinine Ratio 29.2 (10-20); Bilirubin,Total 0.4 mg/dl (0.2-1.0); Calcium 8.8 mg/dl (8.6-10.3); Creatinine Clr Calc Pharmacy 38.9 ml/min; Globulin 3.2 gm/dl (2.5-4.0); Potassium 4.4 mmol/L (3.5-5.1); Total Protein 6.3 gm/dl (6.0-8.3)
[2025-02-25 06:42] LABS: Prothrombin Time 11.3 Seconds (9.0-12.0)
[2025-02-25] MEDS ORDERED: LETROZOLE 2.5 MG PO SCH (09:00)
[2025-02-25] MEDS: ENOXAPARIN INJ 40 MG/0.4 ML SYR SQ SCH (09:02)
[2025-02-25] MEDS: POLYETHYLENE (MIRALAX) 17 GM PACK PO SCH (09:02)
[2025-02-25] MEDS: LETROZOLE 2.5 MG TAB PO SCH (09:06)
[2025-02-25] MEDS: SOD PHOSPHATE/SOD BIPHOSPHATE ENEMA 132 ML BTL PR ONE (11:10)
--- NOTE | 2025-02-25 14:23 | XRay Report ---
KUB HISTORY: distention, poss SBPO COMPARISON STUDY: CT scan yesterday FINDINGS: There is moderate retained stool. There are a few mildly distended small bowel loops in the left abdomen measuring up to 3 cm, stable. No colonic distention seen. No gross free air. IMPRESSION: Stable mild small bowel distention. ACT 112: Negative or not required by law. The above report was generated using voice recognition software. It may contain grammatical, syntax o r spelling errors. Electronically signed by: Sim Christensen M.D. 02/25/2025 2:21 PM
[2025-02-25] MEDS: bisacodyL 10 MG SUPP PR ONE (14:38)
--- NOTE | 2025-02-25 15:10 | Hospitalist Progress Note ---
Date of Service February 25, 2025 Assessment & Plan (1) Obstipation: (2) Malignant ascites: (3) Ovarian cancer: (4) Hypothyroidism: Plan 84 y/o with stage 4 ovarian cancer admitted with obstipation vs possible SBO on admission CT. No BM 8 days Stable overnight with no N/V and no increasing distention. Does not have NG tube. Tolerating small amounts of clears. No stools despite dulcolax supp and fleet enema #Obstipation - based on clinical course thus far SBO less likely Obtained KUB today - reviewed film - agree lots of stool and mildly dilated small bowel - repeat dulcolax - cont miralax - trial CLD - if tolerates can try mag citrate - Zofran 4mg IV q6 prn n/v #Metastatic ovarian cancer w/ malignant ascites - under treatment with chemo by Dr. Huggins ([place]?) at [facility]. No longer on oral agent and started new infusion a week ago - therapeutic paracentesis 2.5L on 02/24. Doesn't appear that cytology was sent - Follow up with [facility] cancer care #Hypothyroidism - Continue levothyroxine Lovenox for VTE ppx Admission and Anticipated Discharge Date Admission Date: February 24, 2025 Subjective Only two small pebble stools in ED after supp yesterday Had fleet enema this am but no significant result No N/V Bilateral lower abdominal mild discomfort Tolerating chips/sips and miralax Physical Exam 2 Physical Exam: Last 24h vitals reviewed GEN: no acute distress, sitting in bed HEENT: pupils equal, sclerae anicteric, moist MM RESP: normal WOB, CTAB CV: reg no mrg ABD: soft, mildly distended and tympanic, NT and no rrg, +BT : no franco SKIN: warm and dry, no generalized rashes NEURO: AOx person, place, and situation. Face symmetric, speech normal, moves 4 ext spontaneously and equally Results & Data Results & Data Vital Signs (Past 12 Hours) Vital Signs Temp Pulse Resp BP Pulse Ox O2 Del Method 02/25/25 07:21 37.0 C 83 18 130/72 94 Room Air Laboratory Results 02/25/25 05:52 02/25/25 05:52 Diagnostic Findings Paracentesis Ultrasound 02/24/25 13:37 ULTRASOUND-GUIDED PARACENTESIS CLINICAL HISTORY: Ascites PROCEDURE: Procedure and risks were explained. Informed consent was obtained. A final timeout was completed. The abdomen was prepped and draped in sterile fashion. 1% lidocaine was utilized for skin anesthesia. Utilizing ultrasound guidance, a 5 Romanian safety centesis catheter was advanced into the right lower quadrant pocket of ascites. Ultrasound images were obtained. 2.5 L of ascites fluid was removed. The catheter was removed and Band- Aid applied. The patient tolerated the procedure well. Vital signs will be monitored postprocedure. IMPRESSION: Ultrasound-guided paracentesis as above. Performed, dictated, and signed by Jimmie Mccallum PA-C; to be co-signed by Dr. Sim Christensen. Electronically signed by: Sim Christensen M.D. 02/24/2025 4:03 PM KUB X-Ray 02/25/25 13:34 KUB HISTORY: distention, poss SBPO COMPARISON STUDY: CT scan yesterday FINDINGS: There is moderate retained stool. There are a few mildly distended small bowel loops in the left abdomen measuring up to 3 cm, stable. No colonic distention seen. No gross free air. IMPRESSION: Stable mild small bowel distention. ACT 112: Negative or not required by law. The above report was generated using voice recognition software. It may contain grammatical, syntax or spelling errors. Electronically signed by: Sim Christensen M.D. 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
[2025-02-25] MEDS: MAGNESIUM CITRATE 296 ML/BTL PO STA (18:38)
[2025-02-26 06:22] LABS: Hematocrit (blood only) 30.8 % (37.0-47.0); Hemoglobin 9.7 g/dl (12.0-16.0); Mean Corpuscular Hemoglobin 26.5 pg (25.0-34.0); Mean Corpuscular Hgb Conc 31.5 g/dL (32.0-36.0); Mean Corpuscular Volume 84.2 fL (80.0-100.0); Mean Platelet Volume 9.4 fL (9.4-12.4); Platelet Count 156 K/uL (130-400); RDW Coefficient of Variation 15.4 % (11.5-14.5); RDW Standard Deviation 47.3 fL (36.4-46.3); Red Blood Count 3.66 M/uL (4.20-5.40); White Blood Count 8.38 K/ul (4.8-10.8)
[2025-02-26 06:59] LABS: BUN Creatinine Ratio 28.9 (10-20); Calcium 8.4 mg/dl (8.6-10.3); Creatinine Clr Calc Pharmacy 38.5 ml/min; Potassium 4.1 mmol/L (3.5-5.1)
--- NOTE | 2025-02-26 10:02 | XRay Report ---
KUB HISTORY: obstipation vs sbo COMPARISON STUDY: 02/25/2025 FINDINGS: There is moderate retained stool. Prior small bowel distention has resolved. No bowel obstr uction seen. No gross free air. IMPRESSION: No acute findings. ACT 112: Negative or not required by law. The above report was generated using voice recognition software. It may contain grammatical, syntax o r spelling errors. Electronically signed by: Sim Christensen M.D. 02/26/2025 10:01 AM
[2025-02-26 10:34] LABS: Hematocrit (blood only) 32.6 % (37.0-47.0); Hemoglobin 10.3 g/dl (12.0-16.0); Mean Corpuscular Hemoglobin 26.9 pg (25.0-34.0); Mean Corpuscular Hgb Conc 31.6 g/dL (32.0-36.0); Mean Corpuscular Volume 85.1 fL (80.0-100.0); Mean Platelet Volume 9.3 fL (9.4-12.4); Platelet Count 183 K/uL (130-400); RDW Coefficient of Variation 15.5 % (11.5-14.5); RDW Standard Deviation 48.3 fL (36.4-46.3); Red Blood Count 3.83 M/uL (4.20-5.40); White Blood Count 8.64 K/ul (4.8-10.8)
[2025-02-26 10:49] LABS: BUN Creatinine Ratio 28.3 (10-20); Calcium 8.7 mg/dl (8.6-10.3); Creatinine Clr Calc Pharmacy 36.6 ml/min; Magnesium 2.3 mg/dl (1.7-2.4); Potassium 4.9 mmol/L (3.5-5.1)
[2025-02-26] MEDS: LAVAGE SOLUTION 4000ML PO SCH (14:40)
--- NOTE | 2025-02-26 17:49 | Hospitalist Progress Note ---
Date of Service February 26, 2025 Assessment & Plan (1) Obstipation: (2) Malignant ascites: (3) Ovarian cancer: (4) Hypothyroidism: Plan 84 y/o with stage 4 ovarian cancer admitted with obstipation vs possible SBO on admission CT. No BM 8 days #Obstipation - distention resolved on exam/KUB and SBO unlikely, having small amount of stool this AM, hard - repeat dulcolax - cont miralax - refused mag citrate and wouldn't drink golytely. repeat supp today - advance diet to general #Metastatic ovarian cancer w/ malignant ascites - under treatment with chemo by Dr. Evans in [place] No longer on oral agent and started new infusion a week ago - CT abdomen shows progression since our last comparison scan - therapeutic paracentesis 2.5L on 02/24. Doesn't appear that cytology was sent - Follow up with [facility] cancer care #Hypothyroidism - Continue levothyroxine Lovenox for VTE ppx Admission and Anticipated Discharge Date Admission Date: February 24, 2025 Subjective Had small amount of hard stool and a smear this am Abd no longer distended No nausea tolerating CLD well Physical Exam Physical Exam: Last 24h vitals reviewed GEN: no acute distress, sitting in bed HEENT: pupils equal, sclerae anicteric, moist MM RESP: normal WOB, CTAB CV: reg no mrg ABD: soft, less distended, NT and no rrg, +BT - more active : no franco SKIN: warm and dry, no generalized rashes NEURO: AOx person, place, and situation. Face symmetric, speech normal, moves 4 ext spontaneously and equally Results & Data Results & Data Vital Signs (Past 12 Hours) Vital Signs Temp Pulse Pulse Resp BP Pulse Ox O2 Del Method 02/26/25 16:08 37.0 C 98 H 16 132/76 95 Room Air 02/26/25 12:08 36.9 C 93 H 17 131/83 93 Room Air 02/26/25 07:50 37.4 C 90 13 121/69 96 Room Air Laboratory Results Cr 1.2 (has been 1-1.2) stable Electrolytes ok Hg increased/stable 10.3 Diagnostic Findings Personally reviewed KUB film, small bowel distention resolved, lots of stool PG Care Time/CCT Total # of Minutes Spent Total Time Spent with Patient: Total time spent is greater than 50% in coordination of care (as documented) at patient's floor/unit and/or counseling patient: Coding Level of Care Code 71355 SUB INP/OBS CARE 2/35MIN Diagnoses Obstipation K59.00 Malignant ascites R18.0 Malignant neoplasm of ovary, unspecified laterality C56.9 Laterality: unspecified laterality 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
[2025-02-26] MEDS: bisacodyL 10 MG SUPP PR ONE (18:06)
[2025-02-27 06:24] LABS: BUN Creatinine Ratio 29.9 (10-20); Calcium 8.5 mg/dl (8.6-10.3); Creatinine Clr Calc Pharmacy 37.5 ml/min; Potassium 4.3 mmol/L (3.5-5.1)
[2025-02-27] MEDS: POLYETHYLENE (MIRALAX) 17 GM PACK PO ONE (12:28)
[2025-02-27] MEDS: ONDANSETRON INJ 2 MG/ML 2 ML VIAL IV PRN (13:25)
--- NOTE | 2025-02-27 15:42 | XRay Report ---
Abdominal radiograph, one view History: Abdominal pain Comparison: 02/25/2025 Findings: Single AP view of the abdomen performed. The bowel gas pattern appears nonobstructive. No pneumatosis or portal venous gas. No abnormal calcifications project over the abdomen. No acute abnormality of the bony structures. Impression: Nonobstructive bowel gas pattern. There is a relative paucity of small bowel gas, possibly due to fluid-filled loops of bowel. There is a moderate to large colonic stool burden. Electronically signed by Juancho Lopez 02-27-2025 3:42 PM
--- NOTE | 2025-02-27 16:13 | Hospitalist Progress Note ---
Date of Service February 27, 2025 Assessment & Plan (1) Obstipation: (2) Malignant ascites: (3) Ovarian cancer: (4) Hypothyroidism: Plan 84 y/o with stage 4 ovarian cancer admitted with obstipation vs possible SBO on admission CT. No BM 8 days until 02/26 Obstipation and question of SBO on initial CT Started small amount of stool yesterday and distention had resolved, advanced diet. Would not drink mag citrate or golytely. Has been getting miralax, senna, dulcolax supp. Large emesis after lunch today. Obtained KUB - reviewed film - still lots of stool, no dilated small bowel. BMP unremarkable today stable Cr, lytes. Because of previous CT findings and her ovarian cancer, its safest to repeat CT abdomen/pelvis with IV and contrast at this time, to reevaluate for partial SBO - CT as above - diet back to clears - AM CBC BMP mag #Metastatic ovarian cancer w/ malignant ascites - under treatment with chemo by Dr. 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 Doesn't appear that cytology was sent - Follow up with [facility] cancer care #Hypothyroidism - Continue levothyroxine Lovenox for VTE ppx I updated her daughter at length at bedside this AM. I was anticipating home tonight/tomorrow. This was prior to the large emesis however. Discussed POC with bedside nurse Admission and Anticipated Discharge Date Admission Date: February 24, 2025 Subjective Had small amount of hard then small amount of liquid stool yesterday. Did not drink golytely [place] well this AM. After lunch had large volume emesis of undigested food Physical Exam 2 Physical Exam: Last 24h vitals reviewed GEN: no acute distress, in chair HEENT: pupils equal, sclerae anicteric, moist MM RESP: normal WOB, CTAB CV: reg no mrg ABD: soft, mildly distended and tympanic, nontender no rrg +BT : no franco SKIN: warm and dry, no generalized rashes NEURO: AOx person, place, and situation. Face symmetric, speech normal, moves 4 ext spontaneously and equally Results & Data Results & Data Vital Signs (Past 12 Hours) Vital Signs Temp Pulse Resp BP Pulse Ox O2 Del Method 02/27/25 13:57 36.9 C 91 H 16 129/76 95 Room Air 02/27/25 07:30 Room Air 02/27/25 07:30 36.9 C 86 16 144/80 H 94 Room Air Laboratory Results 02/26/25 10:14 02/27/25 05:40 PG Care Time/CCT Total # of Minutes Spent Total Time Spent with Patient: Total time spent is greater than 50% in coordination of care (as documented) at patient's floor/unit and/or counseling patient: Coding Level of Care Code 43155 SUB INP/OBS CARE 3/50MIN Diagnoses Obstipation K59.00 Malignant ascites R18.0 Malignant neoplasm of ovary, unspecified laterality C56.9 Laterality: unspecified laterality 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
[2025-02-27] MEDS: OPTIRAY 320 100ml IV ONE (20:09)
--- NOTE | 2025-02-28 01:54 | CT Scan Report ---
Exam(s): CT ABDOMEN + PELVIS With Contrast Oral - High Density Amt: 30ml gastrograffin, IV Amt: 93ml optiray 320 EXAM: CT Abdomen and Pelvis With Intravenous Contrast CLINICAL HISTORY: Reason for exam: possible SBO. ovarian cancer. TECHNIQUE: Axial computed tomography images of the abdomen and pelvis with intravenous contrast. CTDI is 25.81 mGy and DLP is 1266.97 mGy-cm. Automated exposure control was utilized for the study. A dose lowering technique was utilized adhering to the principles of ALARA. CONTRAST: Patient received 30ml gastrograffin of Oral - High Density and 93ml optiray 320 of IV contrast COMPARISON: CT Abdomen Pelvis dated 02/24/25, KUB dated 02/27/25 FINDINGS: Lung bases: Unremarkable. No mass. No consolidation. Pleural space: Small left pleural effusion, increased since the prior. Trace right pleural effusion. Mediastinum: Distal esophageal wall thickening and small hiatal hernia. ABDOMEN: Liver: Stable liver lesions not adequately characterized and some may be metastatic as on the prior. Gallbladder and bile ducts: Gallstones within distended gallbladder. No ductal dilation. Pancreas: Unremarkable. No mass. No ductal dilation. Spleen: Unremarkable. No splenomegaly. Adrenals: Stable nodular thickening of the left adrenal gland. Kidneys and ureters: Unremarkable. No solid mass. No hydronephrosis. Stomach and bowel: Colonic diverticulosis. Enteric contrast to the level of the cecum without evidence of complete bowel obstruction. Some enteric contrast within the partially distended stomach. Bilateral inguinal hernias containing fat/fluid/peritoneal nodularity. No bowel involvement. Stomach is not significantly distended. PELVIS: Appendix: No findings to suggest acute appendicitis. Bladder: See below. Reproductive: Heterogeneous mass/metastasis in the pelvis involving the region of the vaginal cuff, posterior bladder and invasion of the adjacent rectum as described on the recent prior. No upstream dilation of the colon at this time. ABDOMEN and PELVIS: Intraperitoneal space: Moderate ascites similar/mildly decreased. Peritoneal carcinomatosis as on the prior. No free air. Bones/joints: Degenerative changes of the spine. No acute fracture. No dislocation. Soft tissues: See above. Vasculature: Moderate aortoiliac atherosclerotic calcifications. No abdominal aortic aneurysm. Lymph nodes: Adenopathy including retrocrural, retroperitoneal, pelvic and inguinal adenopathy similar to the recent prior. IMPRESSION: 1. Moderate ascites similar/mildly decreased. Peritoneal carcinomatosis as on the prior. 2. Heterogeneous mass/metastasis in the pelvis involving the region of the vaginal cuff, posterior bladder and invasion of the adjacent rectum as described on the recent prior. No upstream dilation of the colon at this time. 3. Adenopathy including retrocrural, retroperitoneal, pelvic and inguinal adenopathy similar to the recent prior. 4. Distal esophageal wall thickening and small hiatal hernia. Correlate for esophagitis. 5. Stable liver lesions not adequately characterized and some may be metastatic as on the prior. Electronically signed by: Raza Petersen M.D. 02/28/25 01:53 AM
[2025-02-28] MEDS: ACETAMINOPHEN 325 MG TAB PO PRN (04:59)
[2025-02-28] MEDS: bisacodyL 10 MG SUPP PR PRN (08:02)
[2025-02-28 08:22] LABS: Hematocrit (blood only) 31.3 % (37.0-47.0); Hemoglobin 9.9 g/dl (12.0-16.0); Mean Corpuscular Hemoglobin 26.3 pg (25.0-34.0); Mean Corpuscular Hgb Conc 31.6 g/dL (32.0-36.0); Mean Platelet Volume 9.6 fL (9.4-12.4); Platelet Count 159 K/uL (130-400); RDW Coefficient of Variation 15.4 % (11.5-14.5); RDW Standard Deviation 46.8 fL (36.4-46.3); Red Blood Count 3.77 M/uL (4.20-5.40); White Blood Count 8.01 K/ul (4.8-10.8)
[2025-02-28] MEDS: POLYETHYLENE (MIRALAX) 17 GM PACK ONE (08:28)
[2025-02-28] MEDS: POLYETHYLENE (MIRALAX) 17 GM PACK PO SCH (08:28)
[2025-02-28] MEDS: PANTOprazole 40 MG TAB PO SCH (08:31)
[2025-02-28 08:48] LABS: Albumin Level 3.1 gm/dl (3.4-5.0); BUN Creatinine Ratio 29.9 (10-20); Bilirubin,Total 0.4 mg/dl (0.2-1.0); Calcium 8.6 mg/dl (8.6-10.3); Creatinine Clr Calc Pharmacy 37.5 ml/min; Globulin 3.1 gm/dl (2.5-4.0); Magnesium 2.4 mg/dl (1.7-2.4); Potassium 4.4 mmol/L (3.5-5.1); Total Protein 6.2 gm/dl (6.0-8.3)
[2025-02-28] MEDS: MAGNESIUM HYDROXIDE SUSP 30 ML UDC PO PRN (09:24)
[2025-02-28] MEDS: POLYETHYLENE (MIRALAX) 17 GM PACK PO ONE (13:23)
[2025-02-28 14:44] VITALS: TEMP 98.4
--- NOTE | 2025-02-28 16:39 | Hospitalist Progress Note ---
Date of Service February 28, 2025 Assessment & Plan (1) Obstipation: (2) Malignant ascites: (3) Ovarian cancer: (4) Hypothyroidism: Plan 84 y/o with stage 4 ovarian cancer admitted with obstipation vs possible SBO on admission CT. No BM 8 days until 02/26 Obstipation and question of SBO on initial CT. repeat CT yesterday was negative for small bowel obstruction, remains full of stool - having small amount of hard pebble/dry stools last 72 hours - increased MiraLAX to 34 grams q8h, she has refused mag citrate and GoLytely - diet advance to full liquid - CBC reviewed hemoglobin unchanged at 10, mildly hyponatremic with sodium 133, creatinine at baseline 1.17, potassium and magnesium are normal, albumin is low at 3.1 and LFTs were normal #Metastatic ovarian cancer w/ malignant ascites - under treatment with chemo by Dr. 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 Doesn't appear that cytology was sent - Follow up with [facility] cancer care #Hypothyroidism - Continue levothyroxine Lovenox for VTE ppx I updated her daughter at length at bedside 02/28 keep working on bowel regimen anticipate home soon Admission and Anticipated Discharge Date Admission Date: February 24, 2025 Subjective has been having small infrequent hard dry stools for the last 72 hours no further nausea and vomiting since yesterday lunch Physical Exam 2 Physical Exam: Last 24h vitals reviewed GEN: no acute distress, in chair HEENT: pupils equal, sclerae anicteric, moist MM RESP: normal WOB, CTAB CV: reg no mrg ABD: soft, remains mildly to moderately distended and tympanic, nontender no rrg infrequent bowel tones present : no franco SKIN: warm and dry, no generalized rashes NEURO: AOx person, place, and situation. Face symmetric, speech normal, moves 4 ext spontaneously and equally Results & Data Results & Data Vital Signs (Past 12 Hours) Vital Signs Temp Pulse Resp BP Pulse Ox O2 Del Method 02/28/25 14:43 36.9 C 93 H 14 120/71 95 Room Air 02/28/25 07:16 36.3 C L 91 H 16 103/66 94 Room Air Laboratory Results 02/28/25 08:09 02/28/25 08:09 PG Care Time/CCT Total # of Minutes Spent Total Time Spent with Patient: Total time spent is greater than 50% in coordination of care (as documented) at patient's floor/unit and/or counseling patient: Coding Level of Care Code 48716 SUB INP/OBS CARE 2/35MIN Diagnoses Obstipation K59.00 Malignant ascites R18.0 Malignant neoplasm of ovary, unspecified laterality C56.9 Laterality: unspecified laterality 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
[2025-02-28] MEDS ORDERED: POLYETHYLENE (MIRALAX) 17 GM PACK PO PRN (18:58)
[2025-02-28 19:25] VITALS: RESP 18
[2025-03-01 07:10] LABS: Calcium 8.3 mg/dl (8.6-10.3); Creatinine Clr Calc Pharmacy 35.1 ml/min; Potassium 4.3 mmol/L (3.5-5.1)
[2025-03-01 08:24] VITALS: BP 134/84; PULSE 94; O2SAT 92
--- NOTE | 2025-03-02 10:01 | Discharge Summary ---
Discharge Summary Date of Service March 02, 2025 Principal Dx & Hospital Course #1 = Principal Diagnosis (1) Obstipation: (2) Malignant ascites: (3) Ovarian cancer: (4) Hypothyroidism: Plan 84 y/o with stage 4 ovarian cancer admitted with obstipation vs possible SBO on admission CT. No BM 8 days until 02/26 Obstipation and question of SBO on initial CT. - initially NPO then clears, treated with enema and dulcolax supps, had very small amount of stool, started miralax didn't tolerate mag citrate and refused golytely, distention resolved, advanced diet, next day large emesis after lunch - repeat CT with IV/po contrast negative for SBO, remained full of stool - eventually moving bowels well after much miralax and tolerating general diet - start bowel regimen once laxative diarrhea resolves - provided instructions to Simran and her daughter, starting with miralax plus/minus senna - poor motility related to metastatic ovarian cancer, recent change in cancer treatment regimen #Metastatic ovarian cancer w/ malignant ascites - under treatment with chemo by Dr. Evans in [place] No longer on oral agent and started new infusion a week [employer] - CT abdomen shows progression since our last comparison scan - therapeutic paracentesis 2.5L on 02/24. Doesn't appear that cytology was sent, presumed malignant ascites - Follow up with [facility] cancer care - paracentesis as needed for comfort, can be arranged outpatient with [facility] #mild hyponatremia - asymptomatic and related to low solute intake while on npo/clears #Hypothyroidism - Continue levothyroxine I updated her daughter at length at bedside 02/28 Follow up with her oncologist Notes For Next Care Provider obstipation malignant ascites stage 4 ovarian cancer Medication Changes From Visit added miralax, senna Admission HPI Per Admitting Provider Simran is a pleasant 84 yo F with known metastatic ovarian cancer who presents to the ER today accompanied by her friend and daughter who reports c/o n/v, abdominal pain and constipation. She was started on a new chemotherapy drug last week and reports that she hasn't had a BM since last . She follows for her cancer care with [facility] in [place]. Prior to that, she was moving her bowels regularly which was once a day for her. She had nausea and vomiting overnight with diffuse abdominal pain. She reports no fever or chills. She vomited shortly after taking her Synthroid this AM and has had no further vomiting since. In the ER, her CTAP demonstrates progressive metastatic disease including hepatic, lymphatic, peritoneal, and omental disease with moderate malignant ascites and moderate fecal retention. She has been medicated with a dose of Zofran, Protonix and Pepcid and received 1L of NSS. She has been referred to hospital medicine team for admission. Discharge Exam Last 24h vitals reviewed GEN: no acute distress, in bed HEENT: pupils equal, sclerae anicteric, moist MM RESP: normal WOB, CTAB CV: reg no mrg ABD: soft, mildly distended not tympanic, nontender no rrg +BT : no franco SKIN: warm and dry, no generalized rashes NEURO: AOx person, place, and situation. Face symmetric, speech normal, moves 4 ext spontaneously and equally Discharge Plan Discharge Items Patient Disposition: Home - Self-Care Reason For Visit: CONSTIPATION, METASTATIC CANCER, ACITES Discharge Diagnosis: obstipation, malignant ascites, stage 4 ovarian cancer Condition on Discharge: Fair Activity: Resume your previous activity Non-emergency contact: Primary Care Provider and Oncologist Call non-emergency contact if: you have any medication questions, your symptoms worsen and you have a fever Follow-up/Referrals: Nicol Tobar MD [Primary Care Provider] - 03/04/25 11:05 am Diet: Regular Addtl Attending Provider Instructions: You were treated for obstipation (severe constipation) -you'll have loose stool or diarrhea for one or a few days -once the diarrhea has resolved start daily bowel regimen as below. You can start with daily miralax For prevention of constipation: Miralax 1 capful daily or twice a day - adjust dose so that you're having at least one good BM a day Senna tabs 1-2 tabs daily or twice a day - adjust dose so that you're having at least one good BM a day -these are both safe to take manager terminal Dulcolax 5-10 mg tab daily as needed if the above meds are ineffective Dulcolax suppository per rectum daily as needed -these are for more severe constipation and are for short term use These medications are all available over the counter at the drugstore There was some esophagus inflammation on the second CT and you have small hiatal hernia -you will benefit from acid suppression - I prescribed pantoprazole (protonix) daily You have started to have fluid building up in your abdominal cavity - this is called ascites and its caused by the ovarian cancer. Hopefully the new cancer treatment will help slow this down. If the fluid builds up to where its uncomfortable or painful, or if your abdomen is getting tight, you can have paracentesis for comfort. This can be arranged as an outpatient with interventional radiology. Seek immediate medical attention if you have recurrent ongoing nausea and vomiting or abdominal pain It was a pleasure taking care of you in the hosptial, Elvira Delgadillo MD Pending Studies at Discharge: No Stand-Alone Forms: [facility] Advise Only, Smoking Cessation Medications and DC Order Prescriptions: New bisacodyl 10 mg Suppository 10 mg MS DAILY PRN (Reason: constipation) Qty: 0 0RF pantoprazole 40 mg Tablet,Delayed Release (Dr/Ec) 40 mg PO DAILY Qty: 30 0RF polyethylene glycol 3350 [Miralax] 17 gram Powder In Packet 17 g PO DAILY Qty: 0 0RF Rx Instructions: 1-2 capfuls or packets daily, adjust dose to one good BM per day sennosides [senna] 8.6 mg tablet 8.6 - 17.2 mg PO DAILY Qty: 60 0RF Rx Instructions: 1-2 tabs daily or twice a day - adjust dose so that you're having one good stool a day Continued levothyroxine 137 mcg tablet 137 mcg PO DAILY Qty: 30 5RF acetaminophen 650 mg tablet extended release 650 mg PO BID gabapentin [Neurontin] 100 mg capsule 300 mg PO TID Rx Instructions: 09/26/23 : pt reports she takes 200 mg twice daily. doxorubicin, peg-liposomal [Doxil] 2 mg/mL Suspension 0 mg IV DIRECTED Rx Instructions: Caregiver unsure of strength at this date/time. First treated was done on 02/18/25 ondansetron HCl 8 mg tablet 8 mg PO Q8H PRN (Reason: Nausea And Vomiting) prochlorperazine maleate 10 mg tablet 10 mg PO Q6H PRN (Reason: Nausea And Vomiting) ascorbate calcium (vitamin C) 500 mg Tablet 1,000 mg PO DAILY naproxen sodium [Aleve] 220 mg Tablet 220 mg PO DAILY pyridoxine (vitamin B6) [Vitamin B-6] 100 mg Tablet 100 mg PO DAILY calcium carb-D3-mag ox-zinc ox [Spike Mag Zinc Plus D3] 333 mg-133 unit -133 mg- 5 mg Tablet 1 tab PO DAILY Discontinued letrozole 2.5 mg tablet 2.5 mg PO DAILY Discharge Orders: Discharge Order (Routine); Ordered 03/01/25 Ordered By: Elvira Delgadillo Admission Data Admit Date/Time: 02/24/25 13:37 Attending Provider: Elvira Delgadillo Admit Provider: Elvira Delgadillo Primary Care Provider: Nicol Tobar. Other Providers: Elvira Delgadillo Other Interventions: Discharge Summary Assessment (RN) Last Done: 03/01/25 10:45 Hospital Stay Data Consultations 02/24/25 12:45 ED Decision to Admit Stat Diagnostic Imagining Performed 02/24/25 10:44 CT abd pelvis IV con only Stat 02/24/25 13:37 IR paracentesis abd w/img US Routine 02/27/25 16:03 CT Abd and Pelvis [CT abd pelvis oral and IV con] Stat Abdomen/Pelvis CT 02/24/25 10:[address] WITH IV CONTRAST CT DOSE: 947.45 mGy.cm HISTORY: Acute generalized abdominal pain with possible small bowel obstruction. ovarian ca, concern for SBO, no BM x7 days TECHNIQUE: Multiaxial CT images of the abdomen and pelvis were performed following the IV administration of 94 cc of Optiray, A dose lowering technique was utilized adhering to the principles of ALARA. COMPARISON STUDY: 11/27/2024, 03/06/2024, 11/28/2023 FINDINGS: Cardiomegaly with moderate coronary artery calcifications. Trace right and small left pleural effusions. Mild dependent subsegmental bibasilar atelectasis. No pneumatosis or pneumoperitoneum. Unchanged appearance of the spleen was unremarkable pancreas and right adrenal gland. Unchanged mild nodular left adrenal gland thickening. Cholelithiasis without CT evidence of acute cholecystitis. There are several ill-defined hypodense liver lesions which are not clearly seen on the prior study suggestive of metastasis including a 1.9 cm right hepatic lobe lesion on image 73. A left hepatic lobe lesion centered around the falciform ligament measures approximately 3 cm. Contrast within the collecting systems. Subcentimeter hypodensities of the left kidney are too small to characterize. No hydronephrosis. Decompressed urinary bladder with wall thickening. Atherosclerosis of the aorta without aneurysm. Pathologic lymphadenopathy includes a right inguinal lymph node measuring 1.4 cm on image 306, previously 8 mm. A 2.4 x 1.7 cm aortocaval lymph node on image 174 previously measured 2.3 x 1.4 cm. Distal esophageal wall thickening with small to moderate hiatal hernia. Wall thickening involving several loops of left upper quadrant jejunum which measure up to 2.6 cm transversely. There is circumferential anal rectal wall thickening with irregular enhancement secondary to the previously noted midline pelvic metastatic nodules abutting the vaginal cuff and posterior urinary bladder now with invasion of the rectum, nicely seen on image 249 series 3 measuring up to 4.2 x 4.6 x 4.9 cm. There is no upstream dilation. Moderate fecal retention. Moderate abdominopelvic ascites with progressively worsened peritoneal/omental carcinomatosis. Conglomerate disease within the right abdomen measures up to 14 cm in image 139. Additional peritoneal nodules extend into the inguinal canals with bilateral fluid and fat filled inguinal hernias. No acute fracture. Lumbar levoscoliosis. IMPRESSION: 1. Progressive metastatic disease as above includes hepatic, lymphatic, peritoneal and omental disease with moderate malignant ascites. 2. Large midline pelvic implant involving the vaginal cuff and posterior urinary bladder demonstrates rectal invasion without obstruction. 3. No high-grade bowel obstruction or pneumoperitoneum. 4. Several loops of jejunum are fluid-filled with circumferential wall thickening and measure within the upper limits of normal. Differential considerations include ileus, enteritis versus low-grade obstruction. Follow-up recommended. 5. Moderate fecal retention. 6. Additional findings as above. ACT 112: Negative or not required by law. The above report was generated using voice recognition software. It may contain grammatical, syntax or spelling errors. Electronically signed by: Bryan Blum M.D. 02/24/2025 11:58 AM Paracentesis Ultrasound 02/24/25 13:37 ULTRASOUND-GUIDED PARACENTESIS CLINICAL HISTORY: Ascites PROCEDURE: Procedure and risks were explained. Informed consent was obtained. A final timeout was completed. The abdomen was prepped and draped in sterile fashion. 1% lidocaine was utilized for skin anesthesia. Utilizing ultrasound guidance, a 5 Slovenian safety centesis catheter was advanced into the right lower quadrant pocket of ascites. Ultrasound images were obtained. 2.5 L of ascites fluid was removed. The catheter was removed and Band- Aid applied. The patient tolerated the procedure well. Vital signs will be monitored postprocedure. IMPRESSION: Ultrasound-guided paracentesis as above. Performed, dictated, and signed by Jimmie Mccallum PA-C; to be co-signed by Dr. Sim Christensen. Electronically signed by: Sim Christensen M.D. 02/24/2025 4:03 PM KUB X-Ray 02/25/25 13:34 KUB HISTORY: distention, poss SBPO COMPARISON STUDY: CT scan yesterday FINDINGS: There is moderate retained stool. There are a few mildly distended small bowel loops in the left abdomen measuring up to 3 cm, stable. No colonic distention seen. No gross free air. IMPRESSION: Stable mild small bowel distention. ACT 112: Negative or not required by law. The above report was generated using voice recognition software. It may contain grammatical, syntax or spelling errors. Electronically signed by: Sim Christensen M.D. 02/25/2025 2:21 PM KUB X-Ray 02/26/25 08:49 KUB HISTORY: obstipation vs sbo COMPARISON STUDY: 02/25/2025 FINDINGS: There is moderate retained stool. Prior small bowel distention has resolved. No bowel obstruction seen. No gross free air. IMPRESSION: No acute findings. ACT 112: Negative or not required by law. The above report was generated using voice recognition software. It may contain grammatical, syntax or spelling errors. Electronically signed by: Sim Christensen M.D. 02/26/2025 10:01 AM KUB X-Ray 02/27/25 14:22 Abdominal radiograph, one view History: Abdominal pain Comparison: 02/25/2025 Findings: Single AP view of the abdomen performed. The bowel gas pattern appears nonobstructive. No pneumatosis or portal venous gas. No abnormal calcifications project over the abdomen. No acute abnormality of the bony structures. Impression: Nonobstructive bowel gas pattern. There is a relative paucity of small bowel gas, possibly due to fluid-filled loops of bowel. There is a moderate to large colonic stool burden. Electronically signed by Juancho Lopez 02-27-2025 3:42 PM Abdomen/Pelvis CT 02/27/25 16:03 Exam(s): CT ABDOMEN + PELVIS With Contrast Oral - High Density Amt: 30ml gastrograffin, IV Amt: 93ml optiray 320 EXAM: CT Abdomen and Pelvis With Intravenous Contrast CLINICAL HISTORY: Reason for exam: possible SBO. ovarian cancer. TECHNIQUE: Axial computed tomography images of the abdomen and pelvis with intravenous contrast. CTDI is 25.81 mGy and DLP is 1266.97 mGy-cm. Automated exposure control was utilized for the study. A dose lowering technique was utilized adhering to the principles of ALARA. CONTRAST: Patient received 30ml gastrograffin of Oral - High Density and 93ml optiray 320 of IV contrast COMPARISON: CT Abdomen Pelvis dated 02/24/25, KUB dated 02/27/25 FINDINGS: Lung bases: Unremarkable. No mass. No consolidation. Pleural space: Small left pleural effusion, increased since the prior. Trace right pleural effusion. Mediastinum: Distal esophageal wall thickening and small hiatal hernia. ABDOMEN: Liver: Stable liver lesions not adequately characterized and some may be metastatic as on the prior. Gallbladder and bile ducts: Gallstones within distended gallbladder. No ductal dilation. Pancreas: Unremarkable. No mass. No ductal dilation. Spleen: Unremarkable. No splenomegaly. Adrenals: Stable nodular thickening of the left adrenal gland. Kidneys and ureters: Unremarkable. No solid mass. No hydronephrosis. Stomach and bowel: Colonic diverticulosis. Enteric contrast to the level of the cecum without evidence of complete bowel obstruction. Some enteric contrast within the partially distended stomach. Bilateral inguinal hernias containing fat/fluid/peritoneal nodularity. No bowel involvement. Stomach is not significantly distended. PELVIS: Appendix: No findings to suggest acute appendicitis. Bladder: See below. Reproductive: Heterogeneous mass/metastasis in the pelvis involving the region of the vaginal cuff, posterior bladder and invasion of the adjacent rectum as described on the recent prior. No upstream dilation of the colon at this time. ABDOMEN and PELVIS: Intraperitoneal space: Moderate ascites similar/mildly decreased. Peritoneal carcinomatosis as on the prior. No free air. Bones/joints: Degenerative changes of the spine. No acute fracture. No dislocation. Soft tissues: See above. Vasculature: Moderate aortoiliac atherosclerotic calcifications. No abdominal aortic aneurysm. Lymph nodes: Adenopathy including retrocrural, retroperitoneal, pelvic and inguinal adenopathy similar to the recent prior. IMPRESSION: 1. Moderate ascites similar/mildly decreased. Peritoneal carcinomatosis as on the prior. 2. Heterogeneous mass/metastasis in the pelvis involving the region of the vaginal cuff, posterior bladder and invasion of the adjacent rectum as described on the recent prior. No upstream dilation of the colon at this time. 3. Adenopathy including retrocrural, retroperitoneal, pelvic and inguinal adenopathy similar to the recent prior. 4. Distal esophageal wall thickening and small hiatal hernia. Correlate for esophagitis. 5. Stable liver lesions not adequately characterized and some may be metastatic as on the prior. Electronically signed by: Raza Petersen M.D. 02/28/25 01:53 AM 02/28/25 08:09 03/01/25 05:59 Pending Results Patient Have Any Pending Studies at Discharge: No Discharge Instructions Given to Patient (Per Discharging Provider) You were treated for obstipation (severe constipation) -you'll have loose stool or diarrhea for one or a few days -once the diarrhea has resolved start daily bowel regimen as below. You can start with daily miralax For prevention of constipation: Miralax 1 capful daily or twice a day - adjust dose so that you're having at least one good BM a day Senna tabs 1-2 tabs daily or twice a day - adjust dose so that you're having at least one good BM a day -these are both safe to take manager terminal Dulcolax 5-10 mg tab daily as needed if the above meds are ineffective Dulcolax suppository per rectum daily as needed -these are for more severe constipation and are for short term use These medications are all available over the counter at the drugstore There was some esophagus inflammation on the second CT and you have small hiatal hernia -you will benefit from acid suppression - I prescribed pantoprazole (protonix) daily You have started to have fluid building up in your abdominal cavity - this is called ascites and its caused by the ovarian cancer. Hopefully the new cancer treatment will help slow this down. If the fluid builds up to where its uncomfortable or painful, or if your abdomen is getting tight, you can have paracentesis for comfort. This can be arranged as an outpatient with interventional radiology. 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
== END 2025-03-01 12:00 | disposition home or self-care (01) | DRG 392 ==
LOC: ED 09:43 → 3E 13:37

== ENCOUNTER 2025-04-20 15:14 | Inpatient (IN) ==
--- NOTE | 2025-04-20 15:35 | Emergency Department Note ---
Impression & Plan Anemia, Acute GI bleeding ED Provider Note NAME: ANH WEBSTER AGE: 84 SEX: F : 1940 ARRIVES VIA: Walk-In INFORMANT: Patient, patient's family member ED PROVIDER(S): Adelso Fernández DO CHIEF COMPLAINT: Weakness HPI: The patient is an 84-year-old female who presented to the emergency department for an evaluation of weakness. The patient's been having problems with generalized weakness and shortness of breath with exertion. She had some outpatient laboratory studies and was found to have anemia. She was sent to the emergency department for possible blood transfusion. The patient denies having any black or tarry stools. The patient was recently diagnosed with a pulmonary embolism as well as DVT. She does take oral anticoagulants. ROS: See above HPI for pertinent positives & negatives. A total of 10 systems reviewed and were otherwise negative. PAST MEDICAL HISTORY: See Below PAST SURGICAL HISTORY: See Below FAMILY HISTORY: See Below SOCIAL HISTORY: See Below HOME MEDICATIONS: See Below ALLERGIES: See Below VITALS: See Below PHYSICAL EXAMINATION: GENERAL: Patient is awake alert in no acute distress patient is resting comfortably and showing no signs of anxiety EYES: The conjunctivae are clear. The pupils are round and reactive. EARS, NOSE, MOUTH AND THROAT: The nose is without any evidence of any deformity. NECK: The neck is nontender and supple. RESPIRATORY: Normal respiratory effort is noted there is no evidence of wheezing rhonchi or rales CARDIOVASCULAR: Tachycardic and regular heart sounds were noted to auscultation. There is no definite murmur. GASTROINTESTINAL: The abdomen was soft and distended. There is no specific tenderness guarding rigidity. Rectal exam revealed brown stool which was heme positive. MUSCULOSKELETAL/EXTREMITIES: There is no evidence of gross deformity full range of motion is noted in the hips and shoulders. SKIN: Pedal edema was noted bilaterally. Skin was warm and dry. NEUROLOGIC: Patient is awake alert and oriented x3. MEDICAL DECISION MAKING: The patient is an 84-year-old female who presented to the emergency department for generalized weakness. She has a history of metastatic ovarian cancer. The patient had outpatient laboratory studies that revealed a low hemoglobin. The patient was found to have heme positive stool. She does not have an overwhelming upper GI bleed however she does take a blood thinner. I discussed the patient's laboratory and radiographic studies with her. Blood transfusion was ordered in the emergency department. I did consent the patient for blood transfusion. Her lab work did take a long time to come back but I did discuss her case with the on-call [facility] hospitalist. They have agreed to evaluate the patient in the emergency department for further management and disposition. Triage Nursing notes reviewed. Prior medical records reviewed Vital Signs: reviewed and remarkable for tachycardia. Differential diagnosis: Infection, dehydration, metabolic abnormality, hypo/hyperglycemia, electrolyte disturbance, anemia, hypoxia, cardiac sources, intracerebral event, toxicologic, neurologic, as well as other pathologies. ER treatment provided: See below Diagnostics interpreted by me: ECG: EKG was obtained in the emergency department. My interpretation is sinus tachycardia at 115 bpm. There is no PVCs noted. There is no acute ST segment abnormalities noted. This was compared to a tracing from March 04, 2025. No changes were noted. Cardiac Monitoring: An order was placed for continuous cardiac monitoring. The monitor shows a rate of 102 bpm with sinus tachycardia. Laboratory studies: As stated above and show below. Imaging studies: See below. Radiographic imaging was reviewed by myself Consultation(s): I discussed this case with Dr. Marie who is on-call for the [facility]ist group. ED COURSE: Procedures: none Critical Care: I have personally spent greater than 45 minutes of critical care time in the direct management of this patient. This includes bedside care, interpretation of diagnostic studies, and testing, discussion with consultants, patient, and family members, and other required patient management activities. This 45 minutes is in excess of all separately billable procedures. Past Med/Surg History Problem List (Updated 04/20/25 @ 18:02 by Juancho Tavera MD) Acute GI bleeding (Acute) Anemia (Acute) Encounter for pleural drainage tube placement (03/09/25) Pleurx Intra-abdominal Catheter Insertion - Jimmie Lemos, Pleural effusion GERD (gastroesophageal reflux disease) (Acute) Malignant ascites (Acute) Microscopic hematuria Hypothyroidism Stress incontinence HTN (hypertension) Primary osteoarthritis of right knee Medical History (Updated 04/20/25 @ 18:02 by Juancho Tavera MD) Saddle pulmonary embolus Anaplasmosis Obstipation Acute deep vein thrombosis (DVT) Bacteremia due to Staphylococcus Hypoalbuminemia Acute pulmonary edema Pancytopenia UTI (urinary tract infection) dx 11/19 /asymptomatic/abx tx completed. Port-A-Cath in place High blood pressure ed eval within past couple months/bp medication dose changes since. Thyroid disease unknown details. Ovarian cancer dx 2016/chemo ever since. Off chemo past 9 weeks/ awaiting scheduling of chemo for upcoming/estimated to start December 25 2023. [facility] [place]. Overactive bladder History of DVT (deep vein thrombosis) ~2017, PE/DVT treated at [facility]. Post-op after hysterectomy. 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 controlled currently, only takes gabapentin as needed. Hiatal hernia Hx: UTI (urinary tract infection) Surgical History History of total right knee replacement History of vascular access device left placed 3 yr ago/power port S/P insertion of IVC (inferior vena caval) filter 2016, [facility] History of colonoscopy H/O arthroscopic knee surgery bilateral History of left knee replacement H/O abdominal hysterectomy (~2016) ZECHARIAH with BSO History of back surgery (~2015) to removal blood clot from spinal column Family History Other No family history of adverse response to anesthesia Social History Smoking Status: Never smoker Second Hand Exposure: No; Do You Dip or Chew Tobacco: No; Hx Alcohol Use: No Hx Substance Use: No Preferred Language: Amharic Communication Ability: Effective Electronics Repair Technician Required: No Beliefs That Will Affect Care: None marital status: Current Living Situation: Alone current occupational status: retired How many Children do You have: 2 Feels Safe at Home: Yes Assistive Devices: Cane and Walker Allergies Allergies Allergy/AdvReac Type Severity Reaction Status Date / Time piperacillin Allergy Intermediate hives Verified 04/20/25 17:36 tazobactam Allergy Intermediate hives Verified 04/20/25 17:36 oxaprozin AdvReac Intermediate FEET Verified 04/20/25 17:36 SWELLING, SKIN PEELING Home Meds Home Medications Medication Instructions Recorded Confirmed acetaminophen 650 mg 1,300 mg PO BID aches and pains 03/13/23 04/20/25 tablet,extended release gabapentin 100 mg capsule 200 mg PO BID neuropathy 03/13/23 04/20/25 (Neurontin) ascorbate calcium (vitamin C) 500 1,000 mg PO DAILY 02/24/25 04/20/25 mg tablet doxorubicin, peg-liposomal 2 mg/mL 2 mg IV .[id number] 02/24/25 04/20/25 intravenous suspension (Doxil) ondansetron HCl 8 mg tablet 8 mg PO Q8H PRN Nausea And Vomiting 02/24/25 04/20/25 prochlorperazine maleate 10 mg 10 mg PO Q6H PRN Nausea And 02/24/25 04/20/25 tablet Vomiting pyridoxine (vitamin B6) 100 mg 100 mg PO DAILY 02/24/25 04/20/25 tablet (Vitamin B-6) apixaban 5 mg tablet (Eliquis) 5 mg PO BID 03/23/25 04/20/25 polyethylene glycol 3350 17 gram 8.5 g PO DAILY 04/20/25 04/20/25 oral powder packet (Miralax) Previous Rx's Medication Instructions Recorded pantoprazole 40 mg tablet,delayed 40 mg PO DAILY #30 tabs 03/01/25 release levothyroxine 150 mcg tablet 150 mcg PO DAILYBB #30 tabs 03/10/25 (Synthroid) sennosides 8.6 mg-docusate sodium 1 - 2 tab-cap (1 - 2 x 8.6-50 mg) 03/23/25 50 mg tablet (Senokot-S) PO BID PRN constipation #60 tabs Results & Data (ED) Vital Signs Vital Signs - 24 hr 04/20/25 15:16 04/20/25 15:21 04/20/25 15:21 Temperature 36.6 C Temperature Source Temporal Artery Scan Pulse Rate Pulse Rate [Apical] 100 H Pulse Rate from SpO2 Sensor Pulse Rhythm Pulse Strength Respiratory Rate 18 18 Respiratory Effort / Characteristics Non-Labored Spontaneous Non-Labored Spontaneous Respiratory Depth Normal Normal Respiratory Pattern Regular Regular Blood Pressure 120/70 Blood Pressure [Right Arm] 100/83 Blood Pressure Mean 86 Blood Pressure Mean [Right Arm] 88 Blood Pressure Position Pulse Oximetry 100 100 Oxygen Delivery Method Room Air Room Air Sepsis Recent Fever Within 48 Hours No Sepsis New/Unexplained Change in Mental Status N/A Sepsis Action Taken by Nursing No Action Required 04/20/25 15:28 04/20/25 15:30 04/20/25 16:00 Temperature Temperature Source Pulse Rate 106 H 102 H 98 H Pulse Rate [Apical] Pulse Rate from SpO2 Sensor 97 H Pulse Rhythm Pulse Strength Respiratory Rate 22 19 Respiratory Effort / Characteristics Respiratory Depth Respiratory Pattern Blood Pressure 100/83 114/65 Blood Pressure [Right Arm] Blood Pressure Mean 88 81 Blood Pressure Mean [Right Arm] Blood Pressure Position Pulse Oximetry 100 100 Oxygen Delivery Method Room Air Room Air Sepsis Recent Fever Within 48 Hours Sepsis New/Unexplained Change in Mental Status Sepsis Action Taken by Nursing 04/20/25 17:26 04/20/25 17:45 04/20/25 18:00 Temperature 36.8 C 36.9 C 36.8 C Temperature Source Oral Oral Oral Pulse Rate 104 H 92 H 106 H Pulse Rate [Apical] Pulse Rate from SpO2 Sensor Pulse Rhythm Regular Pulse Strength Normal Respiratory Rate 22 20 20 Respiratory Effort / Characteristics Respiratory Depth Respiratory Pattern Blood Pressure 121/81 122/71 128/79 Blood Pressure [Right Arm] Blood Pressure Mean 94 88 95 Blood Pressure Mean [Right Arm] Blood Pressure Position Sitting Pulse Oximetry 100 100 98 Oxygen Delivery Method Sepsis Recent Fever Within 48 Hours Sepsis New/Unexplained Change in Mental Status Sepsis Action Taken by Nursing 04/20/25 18:30 04/20/25 19:24 04/20/25 19:30 Temperature 36.8 C 36.9 C Temperature Source Oral Oral Pulse Rate 94 H 92 H 91 H Pulse Rate [Apical] Pulse Rate from SpO2 Sensor Pulse Rhythm Pulse Strength Respiratory Rate 20 22 Respiratory Effort / Characteristics Respiratory Depth Respiratory Pattern Blood Pressure 147/82 H 156/84 H Blood Pressure [Right Arm] Blood Pressure Mean 103 108 Blood Pressure Mean [Right Arm] Blood Pressure Position Pulse Oximetry 100 99 Oxygen Delivery Method Sepsis Recent Fever Within 48 Hours Sepsis New/Unexplained Change in Mental Status Sepsis Action Taken by Nursing 04/20/25 20:05 04/20/25 20:21 Temperature 37.1 C 36.9 C Temperature Source Oral Oral Pulse Rate 98 H 102 H Pulse Rate [Apical] Pulse Rate from SpO2 Sensor Pulse Rhythm Pulse Strength Respiratory Rate 20 22 Respiratory Effort / Characteristics Respiratory Depth Respiratory Pattern Blood Pressure 140/86 137/84 Blood Pressure [Right Arm] Blood Pressure Mean 104 101 Blood Pressure Mean [Right Arm] Blood Pressure Position Pulse Oximetry 100 96 Oxygen Delivery Method Sepsis Recent Fever Within 48 Hours Sepsis New/Unexplained Change in Mental Status Sepsis Action Taken by [facility] Medications Current Medication List: was personally reviewed by mt Laboratory Data Attestation: I reviewed the patient's lab results. 04/20/25 16:32 04/20/25 16:32 Lab Results 04/20/25 04/20/25 04/20/25 Range/Units 15:44 15:47 16:11 WBC Cancelled RBC Cancelled Hgb Cancelled Hct Cancelled MCV Cancelled MCH Cancelled MCHC Cancelled RDW Std Deviation Cancelled RDW Coeff of Sydni Cancelled Plt Count Cancelled MPV Cancelled Immature Gran % (Auto) Cancelled Neut % (Auto) Cancelled Lymph % (Auto) Cancelled [place] % (Auto) Cancelled Eos % (Auto) Cancelled Baso % (Auto) Cancelled Neut # (Auto) Cancelled Lymph # (Auto) Cancelled [place] # (Auto) Cancelled Eos # (Auto) Cancelled Baso # (Auto) Cancelled Immature Gran # (Auto) Cancelled Absolute Nucleated RBC Cancelled Nucleated RBC % (auto) Cancelled Neutrophils % (Manual) Cancelled Band Neutrophils % Cancelled Lymphocytes % (Manual) Cancelled Prolymphocyte % Cancelled Reactive Lymphs % (Man) Cancelled Monocytes % (Manual) Cancelled Eosinophils % (Manual) Cancelled Basophils % (Manual) Cancelled Metamyelocytes % (Man) Cancelled Myelocytes % (Man) Cancelled Promyelocytes % (Man) Cancelled Blast Cells % (Manual) Cancelled Plasma Cell % (Manual) Cancelled Other Cells % Cancelled Nucleated RBC % Cancelled Neutrophils # (Manual) Cancelled Band Neutrophils # Cancelled Total Absolute Neuts Cancelled Lymphocytes # (Manual) Cancelled Prolymphocyte # Cancelled Reactive Lymphs # Cancelled Total Abs Lymphocytes Cancelled Monocytes # (Manual) Cancelled Eosinophils # (Manual) Cancelled Basophils # (Manual) Cancelled Metamyelocytes # (Man) Cancelled Myelocytes # (Manual) Cancelled Promyelocytes # (Man) Cancelled Blast Cells # (Man) Cancelled Plasma Cell # (Manual) Cancelled Other Cells # Cancelled Nucleated RBCs # (Man) Cancelled Hypersegmented Neuts Cancelled Hyposegmented Neuts Cancelled Hypogranular Neuts Cancelled Large Granular Lymphs Cancelled # Lrg Granular Lymphs Cancelled Hairy Cells Cancelled Smudge Cells Cancelled Toxic Granulation Cancelled Toxic Vacuolation Cancelled Dohle Bodies Cancelled Chip Rods Cancelled Platelet Estimate Cancelled Hypogranular Platelets Cancelled Giant Platelets Cancelled Platelet Satelliting Cancelled RBC Morphology Cancelled Polychromasia Cancelled Hypochromasia Cancelled Poikilocytosis Cancelled Basophilic Stippling Cancelled Anisocytosis Cancelled Microcytosis Cancelled Macrocytosis Cancelled Spherocytes Cancelled Pappenheimer Bodies Cancelled Sickle Cells Cancelled Target Cells Cancelled Tear Drop Cells Cancelled Ovalocytes Cancelled Stomatocytes Cancelled [place] Bodies Cancelled Echinocytes Cancelled Acanthocytes (Spur) Cancelled Rouleaux Cancelled RBC Agglutinates Cancelled Schistocytes Cancelled Sezary Cell Cancelled PT Cancelled INR Cancelled APTT Cancelled PTT Ratio Cancelled Sodium Cancelled Potassium Cancelled Chloride Cancelled Carbon Dioxide Cancelled Anion Gap Cancelled BUN Cancelled Creatinine Cancelled Est Cr Clr Drug Dosing Cancelled eGFR Cancelled BUN/Creatinine Ratio Cancelled Glucose Cancelled Calcium Cancelled Total Bilirubin Cancelled AST Cancelled ALT Cancelled Alkaline Phosphatase Cancelled Troponin I High Sens Cancelled Total Protein Cancelled Albumin Cancelled Globulin Cancelled Albumin/Globulin Ratio Cancelled Lipase Cancelled Blood Parasites ID Cancelled Blood Type Cancelled A Negative Antibody Screen Cancelled NEGATIVE Crossmatch See Detail 04/20/25 Range/Units 16:32 WBC 7.81 RBC 1.67 L Hgb 4.6 L* Hct 15.7 L* MCV 94.0 MCH 27.5 MCHC 29.3 L RDW Std Deviation 78.3 H RDW Coeff of Sydni 23.3 H Plt Count 216 MPV 9.2 L Immature Gran % (Auto) 0.6 Neut % (Auto) 76.5 Lymph % (Auto) 9.7 [place] % (Auto) 13.1 Eos % (Auto) 0.1 Baso % (Auto) 0.0 Neut # (Auto) 5.97 Lymph # (Auto) 0.76 L [place] # (Auto) 1.02 H Eos # (Auto) 0.01 Baso # (Auto) 0.00 Immature Gran # (Auto) 0.05 Absolute Nucleated RBC Nucleated RBC % (auto) Neutrophils % (Manual) Band Neutrophils % Lymphocytes % (Manual) Prolymphocyte % Reactive Lymphs % (Man) Monocytes % (Manual) Eosinophils % (Manual) Basophils % (Manual) Metamyelocytes % (Man) Myelocytes % (Man) Promyelocytes % (Man) Blast Cells % (Manual) Plasma Cell % (Manual) Other Cells % Nucleated RBC % Neutrophils # (Manual) Band Neutrophils # Total Absolute Neuts Lymphocytes # (Manual) Prolymphocyte # Reactive Lymphs # Total Abs Lymphocytes Monocytes # (Manual) Eosinophils # (Manual) Basophils # (Manual) Metamyelocytes # (Man) Myelocytes # (Manual) Promyelocytes # (Man) Blast Cells # (Man) Plasma Cell # (Manual) Other Cells # Nucleated RBCs # (Man) Hypersegmented Neuts Hyposegmented Neuts Hypogranular Neuts Large Granular Lymphs # Lrg Granular Lymphs Hairy Cells Smudge Cells Toxic Granulation Toxic Vacuolation Dohle Bodies Chip Rods Platelet Estimate Hypogranular Platelets Giant Platelets Platelet Satelliting RBC Morphology Polychromasia Hypochromasia Present Poikilocytosis Basophilic Stippling Anisocytosis Microcytosis Present Macrocytosis Spherocytes Pappenheimer Bodies Sickle Cells Target Cells Tear Drop Cells Ovalocytes Stomatocytes [place] Bodies Echinocytes Acanthocytes (Spur) Rouleaux RBC Agglutinates Schistocytes Sezary Cell PT 12.4 H INR 1.2 H APTT 46 H PTT Ratio 1.7 Sodium 138 Potassium 4.0 Chloride 104 Carbon Dioxide 27 Anion Gap 7 BUN 24 H Creatinine 0.85 Est Cr Clr Drug Dosing 51.5 eGFR 68.36 BUN/Creatinine Ratio 28.2 H Glucose 100 H Calcium 8.0 L Total Bilirubin 0.3 AST 17 ALT 7 Alkaline Phosphatase 119 H Troponin I High Sens 15.3 H Total Protein 5.4 L Albumin 2.5 L Globulin 2.9 Albumin/Globulin Ratio 0.9 Lipase 28 Blood Parasites ID Blood Type Antibody Screen Crossmatch Administered Medications Discontinued Medications Pantoprazole Sodium (Protonix) 40 mg in 10 mls @ 5 mls/min IV NOW ONE Stop: 04/20/25 15:33 Last Admin: 04/20/25 15:49 Dose: 5 mls/min Documented By: MADHAVI Famotidine (Pepcid 20mg Iv Push) 20 mg in 5 mls @ 2.5 mls/min IV NOW STA Stop: 04/20/25 15:33 Last Admin: 04/20/25 15:43 Dose: 2.5 mls/min Documented By: DELMIS Imaging Data Attestation: I personally reviewed and interpreted this imaging study as follows: My Impression: CT of the abdomen and pelvis was obtained in the emergency department. My interpretation is no free air or signs of bowel obstruction, final report below. Radiologist's Impression: Abdomen/Pelvis CT 04/20/25 19:00 CT of the abdomen pelvis without contrast Technique:Pulmonary embolus. Noncontrast axial images of the abdomen pelvis. Coronal and sagittal reformatted images made available for review Comparison made with prior exam dated March 04, 2025 Findings: Interval placement of a tunneled left lower quadrant drainage catheter which sits within a large amount of intra-abdominal ascites. This appears to have increased when compared to prior exam. Bilateral pleural effusions left greater than right also worsened since prior study. Coronary artery calcifications. Mitral valve calcifications. Cholelithiasis without evidence of acute cholecystitis. No limited noncontrast CT evaluation of remaining solid abdominal organs demonstrates no gross abnormality. No free air or intestinal obstruction. Diverticulosis without evidence of diverticulitis. Diffuse vascular calcifications.Bone windows demonstrate no focal abnormality. Urinary bladder is unremarkable. Impression Limited exam Significant interval increase in intra-abdominal ascites with worsening bilateral pleural effusions Interval placement of a tunneled drainage catheter within the ascites Electronically signed by Gerardo Fonseca 04-20-2025 8:11 PM Discharge Plan Visit Data Chief Complaint: Abnormal Labs/Diagnostic Testing Stated Complaint: ANEMIC ED Provider: Adelso Fernández Discharge Problem: Anemia, Acute GI bleeding Patient Disposition: Being Evaluated by Hospitalist Condition: Fair Forms Stand Alone Forms: My [facility] Prescriptions Prescriptions: No Action acetaminophen 650 mg tablet extended release 1,300 mg PO BID gabapentin [Neurontin] 100 mg capsule 200 mg PO BID polyethylene glycol 3350 [Miralax] 17 gram powder in packet 8.5 g PO DAILY doxorubicin, peg-liposomal [Doxil] 2 mg/mL Suspension 2 mg IV .[id number] Rx Instructions: LAST GIVEN ON 03/19/25. Caregiver unsure of strength at this date/time. ondansetron HCl 8 mg tablet 8 mg PO Q8H PRN (Reason: Nausea And Vomiting) prochlorperazine maleate 10 mg tablet 10 mg PO Q6H PRN (Reason: Nausea And Vomiting) ascorbate calcium (vitamin C) 500 mg Tablet 1,000 mg PO DAILY pyridoxine (vitamin B6) [Vitamin B-6] 100 mg Tablet 100 mg PO DAILY pantoprazole 40 mg Tablet,Delayed Release (Dr/Ec) 40 mg PO DAILY Qty: 30 0RF levothyroxine [Synthroid] 150 mcg Tablet 150 mcg PO DAILYBB Qty: 30 0RF Eliquis 5 mg tablet 5 mg PO BID sennosides-docusate sodium [Senokot-S] 8.6-50 mg tablet 1 - 2 tab-cap PO BID PRN (Reason: constipation) Qty: 60 2RF Referrals Referrals: Nicol Tobar MD [Primary Care Provider] -
[2025-04-20] MEDS: FAMOTIDINE 20MG IV PUSH 20 MG/5 ML SYR IV STA (15:43)
[2025-04-20] MEDS: PANTOprazole 40 MG/10 ML SYR IV ONE (15:49)
[2025-04-20 17:03] LABS: Hematocrit (blood only) 15.7 % (37.0-47.0); Hemoglobin 4.6 g/dl (12.0-16.0); Mean Corpuscular Hemoglobin 27.5 pg (25.0-34.0); Mean Corpuscular Volume 94.0 fL (80.0-100.0); Platelet Count 216 K/uL (130-400); RDW Standard Deviation 78.3 fL (36.4-46.3); Red Blood Count 1.67 M/uL (4.20-5.40); White Blood Count 7.81 K/ul (4.8-10.8)
[2025-04-20] MEDS ORDERED: SODIUM CHLORIDE 0.9% 100 ML IV PRN ×2 (17:04→21:17)
[2025-04-20 17:10] LABS: Alanine Aminotransferase 7.0 U/L (7-52); Albumin Globulin Ratio 0.9 (0.9-2); Alkaline Phosphatase 119.0 U/L (34-104); Anion Gap 7.0 (3-11); Bilirubin,Total 0.3 mg/dl (0.2-1.0); Blood Urea Nitrogen 24.0 mg/dl (6-23); Calcium 8.0 mg/dl (8.6-10.3); Carbon Dioxide 27.0 mmol/L (21-32); Chloride 104.0 mmol/L (98-107); Creatinine Clr Calc Pharmacy 51.5 ml/min; Globulin 2.9 gm/dl (2.5-4.0); Glucose 100.0 mg/dl (70-99(Fasting)); Lipase 28.0 U/L (11-82); Potassium 4.0 mmol/L (3.5-5.1); Sodium 138.0 mmol/L (136-145); Total Protein 5.4 gm/dl (6.0-8.3)
[2025-04-20 17:13] LABS: Hypochromasia Present; Immature Granulocytes # (auto) 0.05 K/uL (0.01-0.20); Immature Granulocytes % (auto) 0.6 %; Microcytosis Present
[2025-04-20 17:18] LABS: INR 1.2 (0.9-1.1); Partial Thromboplastin Time 46 Seconds (21-31); Prothrombin Time 12.4 Seconds (9.0-12.0)
--- NOTE | 2025-04-20 18:46 | History & Physical Report ---
Date of Service April 20, 2025 Assessment & Plan (1) Acute GI bleeding: Plan: 84 y/o female h/o ovarian cancer, recent DVT/PE on apixaban, chronic baseline anemia p/w severe anemia w/ concern for acute GI bleed Admit to telemetry Acute severe anemia in the setting of heme +ve stools - d/c apixaban - NPO - repeat CT abd for evaluation of intrabodominal changes - transfuse 3 units, goal of > 7 with 2 hr post transfusion H/H and q4h surveillance following - gastroenterology consultation for further evaluation and consideration of endoscopy for ablation in the setting of need for anticoagulation w/ active recent DVT/PE - PPI IV drip Ovarian cancer, metastatic with malignant ascites - was due for abdominal paracentesis today and has not yet done - consider consultation w/ hematology oncology - ondansetron for anti-emetic, consider addition of compazine for breakthrough Severe chronic constipation - monitor closely, low threshold to restart bowel regimen to prevent obstipation but will withold presently in the setting of GIB Hypothyroidism - restart levothyroxine in AM F/E/N - transfusion DVT PPX - contraindicated (2) Anemia: (3) Malignant ascites: (4) Ovarian cancer: (5) Hypothyroidism: History of Present Illness Chief Complaint: Weakness and fatigue Primary Care Provider: Nicol Tobar MD Patient is a 84 year old female with history of ovarian cancer (dx 2016, multiple chemotherapeutic interventions), chronic anemia (baseline ~8.5), and recent DVT and saddle PE on lovenox --> apixaban who presents with weakness and referral to [facility] ED following outpatient lab studies showing hgb ~5. Patient reports progressive weakness, easy fatigue and dyspnea on exertion without any reported hematochezia or melanotic stools. She's been on apixaban for weeks and tolerated well otherwise. She reports no other symptoms presently, including headache, vision changes, nausea/vomiting, chest pain, palpitations, worsening abdominal pain, numbness/tingling, weakness or other bruising/bleeding. She follows with [facility] for her metastatic ovarian cancer and had a recent noncontrast CT that showed a lesion pericolonically which was being followed by oncology. History obtained from patient and daughters at bedside/on phone. FHx unknown for parents, no apparent contribution from children. SocHx as noted. Allergies Allergy/AdvReac Type Severity Reaction Status Date / Time piperacillin Allergy Intermediate hives Verified 04/20/25 17:36 tazobactam Allergy Intermediate hives Verified 04/20/25 17:36 oxaprozin AdvReac Intermediate FEET Verified 04/20/25 17:36 SWELLING, SKIN PEELING Home Medications Medication Instructions Recorded Confirmed Type acetaminophen 650 mg 1,300 mg PO BID aches and pains 03/13/23 04/20/25 History tablet,extended release gabapentin 100 mg capsule 200 mg PO BID neuropathy 03/13/23 04/20/25 History (Neurontin) ascorbate calcium (vitamin C) 500 1,000 mg PO DAILY 02/24/25 04/20/25 History mg tablet doxorubicin, peg-liposomal 2 mg/mL 2 mg IV .[id number] 02/24/25 04/20/25 History intravenous suspension (Doxil) ondansetron HCl 8 mg tablet 8 mg PO Q8H PRN Nausea And Vomiting 02/24/25 04/20/25 History prochlorperazine maleate 10 mg 10 mg PO Q6H PRN Nausea And 02/24/25 04/20/25 History tablet Vomiting pyridoxine (vitamin B6) 100 mg 100 mg PO DAILY 02/24/25 04/20/25 History tablet (Vitamin B-6) pantoprazole 40 mg tablet,delayed 40 mg PO DAILY #30 tabs 03/01/25 04/20/25 Rx release levothyroxine 150 mcg tablet 150 mcg PO DAILYBB #30 tabs 03/10/25 04/20/25 Rx (Synthroid) apixaban 5 mg tablet (Eliquis) 5 mg PO BID 03/23/25 04/20/25 History sennosides 8.6 mg-docusate sodium 1 - 2 tab-cap (1 - 2 x 8.6-50 mg) 03/23/25 04/20/25 Rx 50 mg tablet (Senokot-S) PO BID PRN constipation #60 tabs polyethylene glycol 3350 17 gram 8.5 g PO DAILY 04/20/25 04/20/25 History oral powder packet (Miralax) Past Med/Surg History Problem List (Updated 04/20/25 @ 18:02 by Juancho Tavera MD) Acute GI bleeding (Acute) Anemia (Acute) Encounter for pleural drainage tube placement (03/09/25) Pleurx Intra-abdominal Catheter Insertion - Jimmie Lemos DO Pleural effusion GERD (gastroesophageal reflux disease) (Acute) Malignant ascites (Acute) Microscopic hematuria Hypothyroidism Stress incontinence HTN (hypertension) Primary osteoarthritis of right knee Medical History (Updated 04/20/25 @ 18:02 by Juancho Tavera MD) Saddle pulmonary embolus Anaplasmosis Obstipation Acute deep vein thrombosis (DVT) Bacteremia due to Staphylococcus Hypoalbuminemia Acute pulmonary edema Pancytopenia UTI (urinary tract infection) dx 11/19 /asymptomatic/abx tx completed. Port-A-Cath in place High blood pressure ed eval within past couple months/bp medication dose changes since. Thyroid disease unknown details. Ovarian cancer dx 2015/chemo ever since. Off chemo past 9 weeks/ awaiting scheduling of chemo for upcoming/estimated to start December 25 2023. [facility]. Overactive bladder History of DVT (deep vein thrombosis) ~2016, PE/DVT treated at [facility]. Post-op after hysterectomy. 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 controlled currently, only takes gabapentin as needed. Hiatal hernia Hx: UTI (urinary tract infection) Surgical History History of total right knee replacement History of vascular access device left placed 3 yr ago/power port S/P insertion of IVC (inferior vena caval) filter 2017, [facility] History of colonoscopy H/O arthroscopic knee surgery bilateral History of left knee replacement H/O abdominal hysterectomy (~2016) [facility] with BSO History of back surgery (~2015) to removal blood clot from spinal column Family History Other No family history of adverse response to anesthesia Social History Smoking Status: Never smoker Second Hand Exposure: No; Do You Dip or Chew Tobacco: No; Hx Alcohol Use: No Hx Substance Use: No Preferred Language: Arabic Communication Ability: Effective Retail Worker Required: No Beliefs That Will Affect Care: None marital status: Current Living Situation: Alone current occupational status: retired How many Children do You have: 2 Feels Safe at Home: Yes Assistive Devices: Cane and Walker Review of Systems Constitutional: + fatigue and + weakness; no fever, no c hills and no body aches Eyes: no photophobia and no worsening vision Ear, Nose, Mouth, Throat: no hearing loss, no dizziness and no change in voice Respiratory: + dyspnea on exertion; no cough and no h emoptysis Cardiovascular: no chest pain, no palpitations and no lightheadedness Gastrointestinal: + abdominal pain (chronic); no nausea, n o coffee ground emesis, no hematemesis, no dysphagia, no change in bowel habits, no blood in stools and no melena Genitourinary: no dysuria, no urinary frequency, no urinary hesitancy and no urinary urgency Integumentary: no rash and no lesions Neurologic: + generalized weakness; no localized wea kness, no loss of sensation and no paresthesia Psychiatric: no behavioral changes Physical Exam Constitutional: WD/WN, vitals as above Eyes: PERRL, conjunctivae normal, anicteric sclerae ENMT: external ear and nose normal, oropharynx normal Neck: trachea midline, no thyromegaly Respiratory: normal respiratory effort, lungs clear to auscultation Cardiovascular: Heart Sounds: normal S1 and normal S2; no click, no gallop, no murmur and no cardiac rub Gastrointestinal (Abdomen): Inspection/Auscultation: + abdomen distended, normal bowel sounds and + abdominal edema Skin: no rashes, warm and dry Neurologic: PERRL, EOMI, accommodation nl, no face palsy, no dysarthria Psychiatric: A+Ox3, euthymic affect Results & Data Results & Data Vital Signs (Past 12 Hours) Vital Signs Temp Pulse Pulse Resp BP BP Pulse Ox 04/20/25 18:00 36.8 C 106 H 20 128/79 98 04/20/25 17:45 36.9 C 92 H 20 122/71 100 04/20/25 17:26 36.8 C 104 H 22 121/81 100 04/20/25 16:00 98 H 19 114/65 100 04/20/25 15:30 102 H 22 100/83 100 04/20/25 15:28 106 H 04/20/25 15:21 100 04/20/25 15:21 100 H 18 100/83 100 04/20/25 15:16 36.6 C 18 120/70 O2 Del Method 04/20/25 18:00 04/20/25 17:45 04/20/25 17:26 04/20/25 16:00 Room Air 04/20/25 15:30 Room Air 04/20/25 15:28 04/20/25 15:21 Room Air 04/20/25 15:21 Room Air 04/20/25 15:16 Laboratory Results Laboratory Results - last 24 hr 04/20/25 04/20/25 04/20/25 15:44 15:47 16:11 WBC Cancelled RBC Cancelled Hgb Cancelled Hct Cancelled MCV Cancelled MCH Cancelled MCHC Cancelled RDW Std Deviation Cancelled RDW Coeff of Sydni Cancelled Plt Count Cancelled MPV Cancelled Immature Gran % (Auto) Cancelled Neut % (Auto) Cancelled Lymph % (Auto) Cancelled [place] % (Auto) Cancelled Eos % (Auto) Cancelled Baso % (Auto) Cancelled Neut # (Auto) Cancelled Lymph # (Auto) Cancelled [place] # (Auto) Cancelled Eos # (Auto) Cancelled Baso # (Auto) Cancelled Immature Gran # (Auto) Cancelled Absolute Nucleated RBC Cancelled Nucleated RBC % (auto) Cancelled Neutrophils % (Manual) Cancelled Band Neutrophils % Cancelled Lymphocytes % (Manual) Cancelled Prolymphocyte % Cancelled Reactive Lymphs % (Man) Cancelled Monocytes % (Manual) Cancelled Eosinophils % (Manual) Cancelled Basophils % (Manual) Cancelled Metamyelocytes % (Man) Cancelled Myelocytes % (Man) Cancelled Promyelocytes % (Man) Cancelled Blast Cells % (Manual) Cancelled Plasma Cell % (Manual) Cancelled Other Cells % Cancelled Nucleated RBC % Cancelled Neutrophils # (Manual) Cancelled Band Neutrophils # Cancelled Total Absolute Neuts Cancelled Lymphocytes # (Manual) Cancelled Prolymphocyte # Cancelled Reactive Lymphs # Cancelled Total Abs Lymphocytes Cancelled Monocytes # (Manual) Cancelled Eosinophils # (Manual) Cancelled Basophils # (Manual) Cancelled Metamyelocytes # (Man) Cancelled Myelocytes # (Manual) Cancelled Promyelocytes # (Man) Cancelled Blast Cells # (Man) Cancelled Plasma Cell # (Manual) Cancelled Other Cells # Cancelled Nucleated RBCs # (Man) Cancelled Hypersegmented Neuts Cancelled Hyposegmented Neuts Cancelled Hypogranular Neuts Cancelled Large Granular Lymphs Cancelled # Lrg Granular Lymphs Cancelled Hairy Cells Cancelled Smudge Cells Cancelled Toxic Granulation Cancelled Toxic Vacuolation Cancelled Dohle Bodies Cancelled Chip Rods Cancelled Platelet Estimate Cancelled Hypogranular Platelets Cancelled Giant Platelets Cancelled Platelet Satelliting Cancelled RBC Morphology Cancelled Polychromasia Cancelled Hypochromasia Cancelled Poikilocytosis Cancelled Basophilic Stippling Cancelled Anisocytosis Cancelled Microcytosis Cancelled Macrocytosis Cancelled Spherocytes Cancelled Pappenheimer Bodies Cancelled Sickle Cells Cancelled Target Cells Cancelled Tear Drop Cells Cancelled Ovalocytes Cancelled Stomatocytes Cancelled Pantoja-Geddes Bodies Cancelled Echinocytes Cancelled Acanthocytes (Spur) Cancelled Rouleaux Cancelled RBC Agglutinates Cancelled Schistocytes Cancelled Sezary Cell Cancelled PT Cancelled INR Cancelled APTT Cancelled PTT Ratio Cancelled Sodium Cancelled Potassium Cancelled Chloride Cancelled Carbon Dioxide Cancelled Anion Gap Cancelled BUN Cancelled Creatinine Cancelled Est Cr Clr Drug Dosing Cancelled eGFR Cancelled BUN/Creatinine Ratio Cancelled Glucose Cancelled Calcium Cancelled Total Bilirubin Cancelled AST Cancelled ALT Cancelled Alkaline Phosphatase Cancelled Troponin I High Sens Cancelled Total Protein Cancelled Albumin Cancelled Globulin Cancelled Albumin/Globulin Ratio Cancelled Lipase Cancelled Blood Parasites ID Cancelled Blood Type Cancelled A Negative Antibody Screen Cancelled NEGATIVE Crossmatch See Detail 04/20/25 16:32 WBC 7.81 RBC 1.67 L Hgb 4.6 L* Hct 15.7 L* MCV 94.0 MCH 27.5 MCHC 29.3 L RDW Std Deviation 78.3 H RDW Coeff of Sydni 23.3 H Plt Count 216 MPV 9.2 L Immature Gran % (Auto) 0.6 Neut % (Auto) 76.5 Lymph % (Auto) 9.7 [place] % (Auto) 13.1 Eos % (Auto) 0.1 Baso % (Auto) 0.0 Neut # (Auto) 5.97 Lymph # (Auto) 0.76 L [place] # (Auto) 1.02 H Eos # (Auto) 0.01 Baso # (Auto) 0.00 Immature Gran # (Auto) 0.05 Absolute Nucleated RBC Nucleated RBC % (auto) Neutrophils % (Manual) Band Neutrophils % Lymphocytes % (Manual) Prolymphocyte % Reactive Lymphs % (Man) Monocytes % (Manual) Eosinophils % (Manual) Basophils % (Manual) Metamyelocytes % (Man) Myelocytes % (Man) Promyelocytes % (Man) Blast Cells % (Manual) Plasma Cell % (Manual) Other Cells % Nucleated RBC % Neutrophils # (Manual) Band Neutrophils # Total Absolute Neuts Lymphocytes # (Manual) Prolymphocyte # Reactive Lymphs # Total Abs Lymphocytes Monocytes # (Manual) Eosinophils # (Manual) Basophils # (Manual) Metamyelocytes # (Man) Myelocytes # (Manual) Promyelocytes # (Man) Blast Cells # (Man) Plasma Cell # (Manual) Other Cells # Nucleated RBCs # (Man) Hypersegmented Neuts Hyposegmented Neuts Hypogranular Neuts Large Granular Lymphs # Lrg Granular Lymphs Hairy Cells Smudge Cells Toxic Granulation Toxic Vacuolation Dohle Bodies Chip Rods Platelet Estimate Hypogranular Platelets Giant Platelets Platelet Satelliting RBC Morphology Polychromasia Hypochromasia Present Poikilocytosis Basophilic Stippling Anisocytosis Microcytosis Present Macrocytosis Spherocytes Pappenheimer Bodies Sickle Cells Target Cells Tear Drop Cells Ovalocytes Stomatocytes Pantoja-Geddes Bodies Echinocytes Acanthocytes (Spur) Rouleaux RBC Agglutinates Schistocytes Sezary Cell PT 12.4 H INR 1.2 H APTT 46 H PTT Ratio 1.7 Sodium 138 Potassium 4.0 Chloride 104 Carbon Dioxide 27 Anion Gap 7 BUN 24 H Creatinine 0.85 Est Cr Clr Drug Dosing 51.5 eGFR 68.36 BUN/Creatinine Ratio 28.2 H Glucose 100 H Calcium 8.0 L Total Bilirubin 0.3 AST 17 ALT 7 Alkaline Phosphatase 119 H Troponin I High Sens 15.3 H Total Protein 5.4 L Albumin 2.5 L Globulin 2.9 Albumin/Globulin Ratio 0.9 Lipase 28 Blood Parasites ID Blood Type Antibody Screen Crossmatch Code Status & VTE Plan Code Status Extensive discussion, code status DNR/DNI confirmed with daughters at bedside. 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
--- NOTE | 2025-04-20 20:11 | CT Scan Report ---
CT of the abdomen pelvis without contrast Technique:Pulmonary embolus. Noncontrast axial images of the abdomen pelvis. Coronal and sagittal reformatted images made available for review Comparison made with prior exam dated March 04, 2025 Findings: Interval placement of a tunneled left lower quadrant drainage catheter which sits within a large amount of intra-abdominal ascites. This appears to have increased when compared to prior exam. Bilateral pleural effusions left greater than right also worsened since prior study. Coronary artery calcifications. Mitral valve calcifications. Cholelithiasis without evidence of acute cholecystitis. No limited noncontrast CT evaluation of remaining solid abdominal organs demonstrates no gross abnormality. No free air or intestinal obstruction. Diverticulosis without evidence of diverticulitis. Diffuse vascular calcifications.Bone windows demonstrate no focal abnormality. Urinary bladder is unremarkable. Impression Limited exam Significant interval increase in intra-abdominal ascites with worsening bilateral pleural effusions Interval placement of a tunneled drainage catheter within the ascites Electronically signed by Gerardo Fonseca 04-20-2025 8:11 PM
[2025-04-20] MEDS ORDERED: ONDANSETRON INJ 2 MG/ML 2 ML VIAL IV PRN (21:17)
[2025-04-20] MEDS ORDERED: PANTOPRAZOLE BOLUS/DRIP IV STA (21:17)
[2025-04-20] MEDS: FAMOTIDINE 20MG IV PUSH 20 MG/5 ML SYR IV SCH (21:46)
[2025-04-20] MEDS: PANTOprazole 40 MG in DEXTROSE 5% MINI-B 100 ML IV SCH (21:47)
[2025-04-20] MEDS: GABAPENTIN 100 MG CAP PO SCH (21:47)
[2025-04-21 05:17] LABS: Hematocrit (blood only) 27.2 % (37.0-47.0); Hemoglobin 8.7 g/dl (12.0-16.0); Mean Corpuscular Hemoglobin 28.6 pg (25.0-34.0); Mean Corpuscular Volume 89.5 fL (80.0-100.0); Platelet Count 209 K/uL (130-400); RDW Standard Deviation 61.0 fL (36.4-46.3); Red Blood Count 3.04 M/uL (4.20-5.40); White Blood Count 7.84 K/ul (4.8-10.8)
[2025-04-21 05:31] LABS: Anion Gap 6.0 (3-11); Blood Urea Nitrogen 20.0 mg/dl (6-23); Calcium 8.0 mg/dl (8.6-10.3); Carbon Dioxide 27.0 mmol/L (21-32); Chloride 104.0 mmol/L (98-107); Creatinine Clr Calc Pharmacy 52.7 ml/min; Glucose 90.0 mg/dl (70-99(Fasting)); Potassium 3.8 mmol/L (3.5-5.1); Sodium 137.0 mmol/L (136-145)
[2025-04-21] MEDS: LEVOTHYROXINE SODIUM 150 MCG TABLET PO SCH (05:39)
--- NOTE | 2025-04-21 06:39 | Hospitalist Progress Note ---
Date of Service April 21, 2025 Assessment & Plan (1) Acute GI bleeding: Plan: 84 y/o female h/o ovarian cancer, recent DVT/PE on apixaban, chronic baseline anemia p/w severe anemia w/ concern for acute GI bleed Acute severe anemia in the setting of heme +ve stools - holding apixaban - repeat CT abd for evaluation of intraabdominal changes - Received 3 units, goal of > 7 with 2 hr post transfusion H/H and q4h surveillance following - Hbg was 8.7 this am - Will continue to monitor with AM labs, or sooner if pt become symptomatic - gastroenterology consultation , recommendations appreciated No endoscopy at this time - Pt's diet resumed, dietitian consulted due to oncology status - Continue IV famotidine drip Ovarian cancer, metastatic with malignant ascites - was due for abdominal paracentesis 04/20, not performed - Will plan for ascites drainage this afternoon - consider consultation w/ hematology oncology - ondansetron for anti-emetic, consider addition of Compazine for breakthrough Leg edema Pt had been recently prescribed lasix for progressive LE edema, but has not started taking at home. - Pt presenting with 1-2+ edema at ankles and feet - Given 20mg lasix PO - Will monitor K+ via BNP in AM Labs Severe chronic constipation - monitor closely, low threshold to restart bowel regimen to prevent obstipation but will withold presently in the setting of GIB Hypothyroidism - Continue levothyroxine 150mcg F/E/N - transfusion DVT PPX - contraindicated (2) Anemia: (3) Malignant ascites: (4) Ovarian cancer: (5) Hypothyroidism: Plan 84 y/o female h/o ovarian cancer, recent DVT/PE on apixaban, chronic baseline anemia p/w severe anemia w/ concern for acute GI bleed # Acute severe anemia in the setting of heme +ve stools - d/c apixaban - NPO - repeat CT abd for evaluation of intrabodominal changes - transfuse 3 units, goal of > 7 with 2 hr post transfusion H/H and q4h surveillance following - gastroenterology consultation for further evaluation and consideration of endoscopy for ablation in the setting of need for anticoagulation w/ active recent DVT/PE - PPI IV drip #Ovarian cancer, metastatic with malignant ascites - was due for abdominal paracentesis today and has not yet done - consider consultation w/ hematology oncology - ondansetron for anti-emetic, consider addition of compazine for breakthrough #Severe chronic constipation - monitor closely, low threshold to restart bowel regimen to prevent obstipation but will withold presently in the setting of GIB #Hypothyroidism - restart levothyroxine in AM F/E/N - transfusion DVT PPX - contraindicated Admission and Anticipated Discharge Date Admission Date: April 20, 2025 Supervising Physician Co-Signing Physician Notes Attending attestation Pt seen and examined in concert with Dr. Monae. In agreement with the documented findings as noted in the resident documentation with any exceptions or additions as noted here. Resting comfortably in bed feeling improved fatigue and SOB following transfusions. VS as noted. On examination, S1/S2 nl RRR no MCG. CTAB. Abd NT/ND BS+ve Acute anemia in the setting of GI bleed and iron deficiency - GI consultation - no procedural intervention planned at this time. Continue surveillance of hgb, PPI IV and consider transition to PO when stable in AM Ovarian cancer, metastatic w/ malignant ascites - bedside paracentesis today. Ondansetron for symptom management. Consultation for hematology by patient request h/o severe constipation - monitor for worsening sx, gentle bowel regimen if needed Else see resident documentation as noted. Subjective Pt is sleepy during exam, but answering questions. Pt's daughter present for exam. Pt reports no symptoms of anemia prior to admission. Pt had been doing her usual activities, though more fatigued to extra fluid at abdomen and in her legs. Pt was due to draining of ascites fluid yesterday when she came to ED per PCP instruction. Pt denies CP, SOB, N/V/D/C, headaches, dizziness or dysuria Pt endorses abdominal discomfort from fluid pressure. Review of Systems Review of Systems: As per HPI Physical Exam Physical Exam: Gen:Pt laying in bed, appears fatigued, but no acute distress Cardio: RRR, no murmurs, clicks or rubs appreciated Resp: CTAB, no increased work of breathing GI: Distended, mildly firm with general diffuse mild tenderness, normoactive bowel sounds MSK: Moving all 4 extremities against gravity Psych: A & O x 3, normal affect Results & Data Results & Data Vital Signs (Past 12 Hours) Vital Signs Temp Pulse Pulse Resp BP BP Pulse Ox 04/21/25 02:50 36.8 C 99 H 16 147/92 H 94 07/09/25 02:30 36.6 C 102 H 16 148/89 H 95 04/21/25 01:31 36.6 C 102 H 16 148/89 H 95 04/21/25 01:30 36.5 C 99 H 16 154/87 H 99 04/21/25 01:00 37.1 C 103 H 16 149/85 H 95 04/21/25 00:45 37.1 C 98 H 14 144/83 H 98 04/21/25 00:40 37 C 90 16 141/78 H 94 04/21/25 00:28 37 C 90 16 141/78 H 94 04/20/25 23:34 36.8 C 98 H 16 143/81 H 98 04/20/25 23:25 37 C 100 H 16 150/97 H 99 04/20/25 22:51 100 H 04/20/25 22:25 36.8 C 105 H 16 142/85 H 97 04/20/25 22:25 04/20/25 22:25 36.8 C 105 H 16 142/83 H 97 04/20/25 22:25 36.8 C 105 H 16 142/83 H 97 04/20/25 22:25 37.3 C 101 H 24 158/88 H 99 04/20/25 21:25 36.6 C 98 H 18 147/88 H 97 04/20/25 20:55 36.6 C 91 H 18 144/88 H 98 04/20/25 20:40 36.8 C 98 H 20 154/91 H 95 04/20/25 20:40 36.8 C 98 H 20 154/91 H 95 04/20/25 20:21 36.9 C 102 H 22 137/84 96 04/20/25 20:05 37.1 C 98 H 20 140/86 100 04/20/25 19:30 36.9 C 91 H 22 156/84 H 99 04/20/25 19:24 92 H Pulse Ox O2 Del Method O2 Del Method O2 Flow Rate 04/21/25 02:50 04/21/25 02:30 04/21/25 01:31 04/21/25 01:30 04/21/25 01:00 04/21/25 00:45 04/21/25 00:40 Room Air 04/21/25 00:28 04/20/25 23:34 04/20/25 23:25 04/20/25 22:51 04/20/25 22:25 Room Air 04/20/25 22:25 97 Room Air 04/20/25 22:25 Room Air 04/20/25 22:25 04/20/25 22:25 04/20/25 21:25 0 04/20/25 20:55 0 04/20/25 20:40 04/20/25 20:40 04/20/25 20:21 04/20/25 20:05 04/20/25 19:30 04/20/25 19:24 Resident Activity Tracking Resident Involvement: Resident Care Provided Care Provided: Adult Hospital Medicine (4) Ovarian cancer Laterality: unspecified laterality Qualified Code(s): C56.9 - Malignant neoplasm of unspecified ovary (5) Hypothyroidism 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
--- NOTE | 2025-04-21 07:42 | Gastrointestinal Consultation ---
Date of Consultation April 21, 2025 Assessment & Plan (1) Anemia: Doubt significant active GI bleeding in light of brown stool. Occult blood could possibly related to metastatic disease to the colon although you would expect it to be bright light based on imaging suggesting the mass located near the rectosigmoid. Suspect anemia is multifactorial due to chemotherapy due to blood loss from her malignant ascites and nutritional. Patient increased risk for endoscopic procedures in light of her recent pulmonary and saddle emboli as well as due to tense ascites. In light of metastatic ovarian cancer and risk and lack of significant overt bleeding recommend medical management at this time with blood transfusions. Discussed this with patient and daughter. Recommend getting pulmonary to comment on risk based on the recent emboli. (2) Abnormal stool test: Hemoccult positive stool brown doubt significant blood loss acutely in light of this. History of Present Illness Reason for Consultation: Anemia Hemoccult positive stool Attending Physician: Juancho Tavera MD History of Present Illness Patient mated to the hospital with a hemoglobin of 5. She has underlying metastatic ovarian cancer undergoing chemotherapy. Cancer is complicated by massive ascites which is hemorrhagic. She has an indwelling catheter for periodic paracenteses for comfort. Stool was brown heme positive in the emergency room. 1 month ago she was admitted to hospital with lower extremity PEs, pulmonary emboli and a saddle embolus started on anticoagulation. She denies any nausea vomiting hematemesis bright red blood per rectum or melena. Stool has been brown at home. There was concern that the ovarian tumor could be compressing her colon. This was not noted on her recent CT scan. Allergies Allergy/AdvReac Type Severity Reaction Status Date / Time piperacillin Allergy Intermediate hives Verified 04/20/25 17:36 tazobactam Allergy Intermediate hives Verified 04/20/25 17:36 oxaprozin AdvReac Intermediate FEET Verified 04/20/25 17:36 SWELLING, SKIN PEELING Home Medications Medication Instructions Recorded Confirmed Type acetaminophen 650 mg 1,300 mg PO BID aches and pains 03/13/23 04/20/25 History tablet,extended release gabapentin 100 mg capsule 200 mg PO BID neuropathy 03/13/23 04/20/25 History (Neurontin) ascorbate calcium (vitamin C) 500 1,000 mg PO DAILY 02/24/25 04/20/25 History mg tablet doxorubicin, peg-liposomal 2 mg/mL 2 mg IV .[id number] 02/24/25 04/20/25 History intravenous suspension (Doxil) ondansetron HCl 8 mg tablet 8 mg PO Q8H PRN Nausea And Vomiting 02/24/25 04/20/25 History prochlorperazine maleate 10 mg 10 mg PO Q6H PRN Nausea And 02/24/25 04/20/25 History tablet Vomiting pyridoxine (vitamin B6) 100 mg 100 mg PO DAILY 02/24/25 04/20/25 History tablet (Vitamin B-6) pantoprazole 40 mg tablet,delayed 40 mg PO DAILY #30 tabs 03/01/25 04/20/25 Rx release levothyroxine 150 mcg tablet 150 mcg PO DAILYBB #30 tabs 03/10/25 04/20/25 Rx (Synthroid) apixaban 5 mg tablet (Eliquis) 5 mg PO BID 03/23/25 04/20/25 History sennosides 8.6 mg-docusate sodium 1 - 2 tab-cap (1 - 2 x 8.6-50 mg) 03/23/25 04/20/25 Rx 50 mg tablet (Senokot-S) PO BID PRN constipation #60 tabs polyethylene glycol 3350 17 gram 8.5 g PO DAILY 04/20/25 04/20/25 History oral powder packet (Miralax) Patient History Medical History (Updated 04/21/25 @ 07:56 by Cam Reilly MD) Saddle pulmonary embolus Anaplasmosis Obstipation Acute deep vein thrombosis (DVT) Bacteremia due to Staphylococcus Hypoalbuminemia Acute pulmonary edema Pancytopenia UTI (urinary tract infection) dx 11/19 /asymptomatic/abx tx completed. Port-A-Cath in place High blood pressure ed eval within past couple months/bp medication dose changes since. Thyroid disease unknown details. Ovarian cancer dx 2015/chemo ever since. Off chemo past 9 weeks/ awaiting scheduling of chemo for upcoming/estimated to start December 25 2023. [facility] [place]. Overactive bladder History of DVT (deep vein thrombosis) ~2017, PE/DVT treated at [facility]. Post-op after hysterectomy. 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 controlled currently, only takes gabapentin as needed. Hiatal hernia Hx: UTI (urinary tract infection) Surgical History History of total right knee replacement History of vascular access device left placed 3 yr ago/power port S/P insertion of IVC (inferior vena caval) filter 2017, [facility] History of colonoscopy H/O arthroscopic knee surgery bilateral History of left knee replacement H/O abdominal hysterectomy (~2017) ZECHARIAH with BSO History of back surgery (~2015) to removal blood clot from spinal column Family History Other No family history of adverse response to anesthesia Social History Smoking Status: Unknown if ever smoked Second Hand Exposure: No; Do You Dip or Chew Tobacco: No; Hx Alcohol Use: No Hx Substance Use: No Preferred Language: Yakut Communication Ability: Effective Rd Scientist Required: No Beliefs That Will Affect Care: None marital status: Current Living Situation: Alone current occupational status: retired How many Children do You have: 2 Feels Safe at Home: Yes Assistive Devices: Glasses and Walker Review of Systems Review of Systems: No fever No chills No SOB No CP Abdominal discomfort due to massive ascites Physical Exam Physical Exam: Eyes; anicteric HENT No masses Chest clear to A Cor S1, S2 physiologic Abd: Tense distended massive ascites Ext no edema Results & Data Vital Signs (Past 12 Hours) Vital Signs Temp Pulse Pulse Resp BP BP Pulse Ox 04/21/25 02:50 36.8 C 99 H 16 147/92 H 94 04/21/25 02:30 36.6 C 102 H 16 148/89 H 95 04/21/25 01:31 36.6 C 102 H 16 148/89 H 95 04/21/25 01:30 36.5 C 99 H 16 154/87 H 99 04/21/25 01:00 37.1 C 103 H 16 149/85 H 95 04/21/25 00:45 37.1 C 98 H 14 144/83 H 98 04/21/25 00:40 37 C 90 16 141/78 H 94 04/21/25 00:28 37 C 90 16 141/78 H 94 04/20/25 23:34 36.8 C 98 H 16 143/81 H 98 04/20/25 23:25 37 C 100 H 16 150/97 H 99 04/20/25 22:51 100 H 04/20/25 22:25 36.8 C 105 H 16 142/85 H 97 04/20/25 22:25 04/20/25 22:25 36.8 C 105 H 16 142/83 H 97 04/20/25 22:25 36.8 C 105 H 16 142/83 H 97 04/20/25 22:25 37.3 C 101 H 24 158/88 H 99 04/20/25 21:25 36.6 C 98 H 18 147/88 H 97 04/20/25 20:55 36.6 C 91 H 18 144/88 H 98 04/20/25 20:40 36.8 C 98 H 20 154/91 H 95 04/20/25 20:40 36.8 C 98 H 20 154/91 H 95 04/20/25 20:21 36.9 C 102 H 22 137/84 96 04/20/25 20:05 37.1 C 98 H 20 140/86 100 Pulse Ox O2 Del Method O2 Del Method O2 Flow Rate 04/21/25 02:50 04/21/25 02:30 04/21/25 01:31 04/21/25 01:30 04/21/25 01:00 04/21/25 00:45 04/21/25 00:40 Room Air 04/21/25 00:28 04/20/25 23:34 04/20/25 23:25 04/20/25 22:51 04/20/25 22:25 Room Air 04/20/25 22:25 97 Room Air 04/20/25 22:25 Room Air 04/20/25 22:25 04/20/25 22:25 04/20/25 21:25 0 04/20/25 20:55 0 04/20/25 20:40 04/20/25 20:40 04/20/25 20:21 04/20/25 20:05 Laboratory Results Laboratory Results - last 48 hr 04/20/25 04/20/25 04/20/25 15:44 15:47 16:11 WBC Cancelled RBC Cancelled Hgb Cancelled Hct Cancelled MCV Cancelled MCH Cancelled MCHC Cancelled RDW Std Deviation Cancelled RDW Coeff of Sydni Cancelled Plt Count Cancelled MPV Cancelled Immature Gran % (Auto) Cancelled Neut % (Auto) Cancelled Lymph % (Auto) Cancelled [place] % (Auto) Cancelled Eos % (Auto) Cancelled Baso % (Auto) Cancelled Neut # (Auto) Cancelled Lymph # (Auto) Cancelled [place] # (Auto) Cancelled Eos # (Auto) Cancelled Baso # (Auto) Cancelled Immature Gran # (Auto) Cancelled Absolute Nucleated RBC Cancelled Nucleated RBC % (auto) Cancelled Neutrophils % (Manual) Cancelled Band Neutrophils % Cancelled Lymphocytes % (Manual) Cancelled Prolymphocyte % Cancelled Reactive Lymphs % (Man) Cancelled Monocytes % (Manual) Cancelled Eosinophils % (Manual) Cancelled Basophils % (Manual) Cancelled Metamyelocytes % (Man) Cancelled Myelocytes % (Man) Cancelled Promyelocytes % (Man) Cancelled Blast Cells % (Manual) Cancelled Plasma Cell % (Manual) Cancelled Other Cells % Cancelled Nucleated RBC % Cancelled Neutrophils # (Manual) Cancelled Band Neutrophils # Cancelled Total Absolute Neuts Cancelled Lymphocytes # (Manual) Cancelled Prolymphocyte # Cancelled Reactive Lymphs # Cancelled Total Abs Lymphocytes Cancelled Monocytes # (Manual) Cancelled Eosinophils # (Manual) Cancelled Basophils # (Manual) Cancelled Metamyelocytes # (Man) Cancelled Myelocytes # (Manual) Cancelled Promyelocytes # (Man) Cancelled Blast Cells # (Man) Cancelled Plasma Cell # (Manual) Cancelled Other Cells # Cancelled Nucleated RBCs # (Man) Cancelled Hypersegmented Neuts Cancelled Hyposegmented Neuts Cancelled Hypogranular Neuts Cancelled Large Granular Lymphs Cancelled # Lrg Granular Lymphs Cancelled Hairy Cells Cancelled Smudge Cells Cancelled Toxic Granulation Cancelled Toxic Vacuolation Cancelled Dohle Bodies Cancelled Chip Rods Cancelled Platelet Estimate Cancelled Hypogranular Platelets Cancelled Giant Platelets Cancelled Platelet Satelliting Cancelled RBC Morphology Cancelled Polychromasia Cancelled Hypochromasia Cancelled Poikilocytosis Cancelled Basophilic Stippling Cancelled Anisocytosis Cancelled Microcytosis Cancelled Macrocytosis Cancelled Spherocytes Cancelled Pappenheimer Bodies Cancelled Sickle Cells Cancelled Target Cells Cancelled Tear Drop Cells Cancelled Ovalocytes Cancelled Stomatocytes Cancelled [place]anto[place] Bodies Cancelled Echinocytes Cancelled Acanthocytes (Spur) Cancelled Rouleaux Cancelled RBC Agglutinates Cancelled Schistocytes Cancelled Sezary Cell Cancelled PT Cancelled INR Cancelled APTT Cancelled PTT Ratio Cancelled Sodium Cancelled Potassium Cancelled Chloride Cancelled Carbon Dioxide Cancelled Anion Gap Cancelled BUN Cancelled Creatinine Cancelled Est Cr Clr Drug Dosing Cancelled eGFR Cancelled BUN/Creatinine Ratio Cancelled Glucose Cancelled Calcium Cancelled Total Bilirubin Cancelled AST Cancelled ALT Cancelled Alkaline Phosphatase Cancelled Troponin I High Sens Cancelled Total Protein Cancelled Albumin Cancelled Globulin Cancelled Albumin/Globulin Ratio Cancelled Lipase Cancelled Blood Parasites ID Cancelled Blood Type Cancelled A Negative Antibody Screen Cancelled NEGATIVE Crossmatch See Detail 04/20/25 04/21/25 16:32 04:43 WBC 7.81 7.84 RBC 1.67 L 3.04 L Hgb 4.6 L* 8.7 L D Hct 15.7 L* 27.2 L MCV 94.0 89.5 MCH 27.5 28.6 MCHC 29.3 L 32.0 RDW Std Deviation 78.3 H 61.0 H RDW Coeff of Sydni 23.3 H 19.8 H Plt Count 216 209 MPV 9.2 L 9.4 Immature Gran % (Auto) 0.6 Neut % (Auto) 76.5 Lymph % (Auto) 9.7 [place] % (Auto) 13.1 Eos % (Auto) 0.1 Baso % (Auto) 0.0 Neut # (Auto) 5.97 Lymph # (Auto) 0.76 L [place] # (Auto) 1.02 H Eos # (Auto) 0.01 Baso # (Auto) 0.00 Immature Gran # (Auto) 0.05 Absolute Nucleated RBC 0.02 Nucleated RBC % (auto) 0.3 Neutrophils % (Manual) Band Neutrophils % Lymphocytes % (Manual) Prolymphocyte % Reactive Lymphs % (Man) Monocytes % (Manual) Eosinophils % (Manual) Basophils % (Manual) Metamyelocytes % (Man) Myelocytes % (Man) Promyelocytes % (Man) Blast Cells % (Manual) Plasma Cell % (Manual) Other Cells % Nucleated RBC % Neutrophils # (Manual) Band Neutrophils # Total Absolute Neuts Lymphocytes # (Manual) Prolymphocyte # Reactive Lymphs # Total Abs Lymphocytes Monocytes # (Manual) Eosinophils # (Manual) Basophils # (Manual) Metamyelocytes # (Man) Myelocytes # (Manual) Promyelocytes # (Man) Blast Cells # (Man) Plasma Cell # (Manual) Other Cells # Nucleated RBCs # (Man) Hypersegmented Neuts Hyposegmented Neuts Hypogranular Neuts Large Granular Lymphs # Lrg Granular Lymphs Hairy Cells Smudge Cells Toxic Granulation Toxic Vacuolation Dohle Bodies Chip Rods Platelet Estimate Hypogranular Platelets Giant Platelets Platelet Satelliting RBC Morphology Polychromasia Hypochromasia Present Poikilocytosis Basophilic Stippling Anisocytosis Microcytosis Present Macrocytosis Spherocytes Pappenheimer Bodies Sickle Cells Target Cells Tear Drop Cells Ovalocytes Stomatocytes Pantoja-[place] Bodies Echinocytes Acanthocytes (Spur) Rouleaux RBC Agglutinates Schistocytes Sezary Cell PT 12.4 H INR 1.2 H APTT 46 H PTT Ratio 1.7 Sodium 138 137 Potassium 4.0 3.8 Chloride 104 104 Carbon Dioxide 27 27 Anion Gap 7 6 BUN 24 H 20 Creatinine 0.85 0.83 Est Cr Clr Drug Dosing 51.5 52.7 eGFR 68.36 70.34 BUN/Creatinine Ratio 28.2 H 24.1 H Glucose 100 H 90 Calcium 8.0 L 8.0 L Total Bilirubin 0.3 AST 17 ALT 7 Alkaline Phosphatase 119 H Troponin I High Sens 15.3 H Total Protein 5.4 L Albumin 2.5 L Globulin 2.9 Albumin/Globulin Ratio 0.9 Lipase 28 Blood Parasites ID Blood Type Antibody Screen Crossmatch Diagnostic Findings Abdomen/Pelvis CT 04/20/25 19:00 CT of the abdomen pelvis without contrast Technique:Pulmonary embolus. Noncontrast axial images of the abdomen pelvis. Coronal and sagittal reformatted images made available for review Comparison made with prior exam dated March 04, 2025 Findings: Interval placement of a tunneled left lower quadrant drainage catheter which sits within a large amount of intra-abdominal ascites. This appears to have increased when compared to prior exam. Bilateral pleural effusions left greater than right also worsened since prior study. Coronary artery calcifications. Mitral valve calcifications. Cholelithiasis without evidence of acute cholecystitis. No limited noncontrast CT evaluation of remaining solid abdominal organs demonstrates no gross abnormality. No free air or intestinal obstruction. Diverticulosis without evidence of diverticulitis. Diffuse vascular calcifications.Bone windows demonstrate no focal abnormality. Urinary bladder is unremarkable. Impression Limited exam Significant interval increase in intra-abdominal ascites with worsening bilateral pleural effusions Interval placement of a tunneled drainage catheter within the ascites Electronically signed by Gerardo Fonseca 04-20-2025 8:11 PM PG Care Time/CCT Total # of Minutes Spent Total Time Spent with Patient: Total time spent is greater than 50% in coordination of care (as documented) at patient's floor/unit and/or counseling patient: Coding Level of Care Code 23959 INT INP/OBS CARE 3/75MIN Diagnoses Anemia D64.9 Abnormal stool test R19.5
--- NOTE | 2025-04-21 11:38 | Oncology Consultation ---
Date of Consultation April 21, 2025 Assessment & Plan (1) Malignant ascites: (2) Pleural effusion: (3) Acute GI bleeding: Plan -Nothing to add from an oncology standpoint. Patient should follow-up outpatient with her [facility]PER[facility] oncologist upon discharge. History of Present Illness Reason for Consultation: Ovarian cancer Attending Physician: Juancho Tavera MD History of Present Illness 84-year-old female with history of metastatic ovarian cancer with malignant ascites and effusion, history of PE and DVT. Patient follows with [facility] oncology at [facility] for ovarian cancer. She was admitted for GI bleeding which has been managed conservatively. Allergies Allergy/AdvReac Type Severity Reaction Status Date / Time piperacillin Allergy Intermediate hives Verified 04/20/25 17:36 tazobactam Allergy Intermediate hives Verified 04/20/25 17:36 oxaprozin AdvReac Intermediate FEET Verified 04/20/25 17:36 SWELLING, SKIN PEELING Home Medications Medication Instructions Recorded Confirmed Type acetaminophen 650 mg 1,300 mg PO BID aches and pains 03/13/23 04/20/25 History tablet,extended release gabapentin 100 mg capsule 200 mg PO BID neuropathy 03/13/23 04/20/25 History (Neurontin) ascorbate calcium (vitamin C) 500 1,000 mg PO DAILY 02/24/25 04/20/25 History mg tablet doxorubicin, peg-liposomal 2 mg/mL 2 mg IV .[id number] 02/24/25 04/20/25 History intravenous suspension (Doxil) ondansetron HCl 8 mg tablet 8 mg PO Q8H PRN Nausea And Vomiting 02/24/25 04/20/25 History prochlorperazine maleate 10 mg 10 mg PO Q6H PRN Nausea And 02/24/25 04/20/25 History tablet Vomiting pyridoxine (vitamin B6) 100 mg 100 mg PO DAILY 02/24/25 04/20/25 History tablet (Vitamin B-6) pantoprazole 40 mg tablet,delayed 40 mg PO DAILY #30 tabs 03/01/25 04/20/25 Rx release apixaban 5 mg tablet (Eliquis) 5 mg PO BID 03/23/25 04/20/25 History sennosides 8.6 mg-docusate sodium 1 - 2 tab-cap (1 - 2 x 8.6-50 mg) 03/23/25 04/20/25 Rx 50 mg tablet (Senokot-S) PO BID PRN constipation #60 tabs polyethylene glycol 3350 17 gram 8.5 g PO DAILY 04/20/25 04/20/25 History oral powder packet (Miralax) levothyroxine 150 mcg tablet 150 mcg PO DAILYBB #30 tabs 04/22/25 Rx (Synthroid) Patient History Medical History (Updated 04/22/25 @ 09:27 by Juancho Tavera MD) Stress incontinence Microscopic hematuria 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 Obstipation Acute deep vein thrombosis (DVT) Bacteremia due to Staphylococcus Hypoalbuminemia Acute pulmonary edema Pancytopenia UTI (urinary tract infection) dx 11/19 /asymptomatic/abx tx completed. Port-A-Cath in place High blood pressure ed eval within past couple months/bp medication dose changes since. Thyroid disease unknown details. Ovarian cancer dx 2015/chemo ever since. Off chemo past 9 weeks/ awaiting scheduling of chemo for upcoming/estimated to start December 25 2023. [facility]. Overactive bladder History of DVT (deep vein thrombosis) ~2016, PE/DVT treated at Replaced by [facility]. Post-op after hysterectomy. 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 controlled currently, only takes gabapentin as needed. Hiatal hernia Hx: UTI (urinary tract infection) Surgical History (Updated 04/22/25 @ 08:00 by Juancho Tavera MD) Encounter for pleural drainage tube placement (03/09/25) Pleurx Intra-abdominal Catheter Insertion - Jimmie Lemos DO History of total right knee replacement History of vascular access device left placed 3 yr ago/power port S/P insertion of IVC (inferior vena caval) filter 2017, Replaced by [facility] History of colonoscopy H/O arthroscopic knee surgery bilateral History of left knee replacement H/O abdominal hysterectomy (~2016) ZECHARIAH with BSO History of back surgery (~2015) to removal blood clot from spinal column Family History Other No family history of adverse response to anesthesia Social History Smoking Status: Unknown if ever smoked Second Hand Exposure: No; Do You Dip or Chew Tobacco: No; Hx Alcohol Use: No Hx Substance Use: No Preferred Language: Nepali Communication Ability: Effective Sugar Laboratory Assistant Required: No Beliefs That Will Affect Care: None marital status: Current Living Situation: Alone current occupational status: retired How many Children do You have: 2 Feels Safe at Home: Yes Assistive Devices: Cane and Walker Results & Data Vital Signs (Past 12 Hours) Vital Signs Temp Pulse Pulse Resp BP BP Pulse Ox 04/21/25 11:36 36.5 C 102 H 24 133/79 96 04/21/25 10:56 91 H 04/21/25 02:50 36.8 C 99 H 16 147/92 H 94 04/21/25 02:30 36.6 C 102 H 16 148/89 H 95 04/21/25 01:31 36.6 C 102 H 16 148/89 H 95 04/21/25 01:30 36.5 C 99 H 16 154/87 H 99 04/21/25 01:00 37.1 C 103 H 16 149/85 H 95 04/21/25 00:45 37.1 C 98 H 14 144/83 H 98 04/21/25 00:40 37 C 90 16 141/78 H 94 04/21/25 00:28 37 C 90 16 141/78 H 94 O2 Del Method 04/21/25 11:36 Room Air 04/21/25 10:56 04/21/25 02:50 04/21/25 02:30 04/21/25 01:31 04/21/25 01:30 04/21/25 01:00 04/21/25 00:45 04/21/25 00:40 Room Air 04/21/25 00:28
[2025-04-21] MEDS: FUROSEMIDE 20 MG TAB PO STA (14:39)
--- NOTE | 2025-04-21 17:35 | Electrocardiogram Report ---
Test Reason : Blood Pressure : */* mmHG Vent. Rate : 115 BPM Atrial Rate : 115 BPM P-R Int : 146 ms QRS Dur : 68 ms QT Int : 342 ms P-R-T Axes : 31 -5 37 degrees QTcB Int : 473 ms Sinus tachycardia Low voltage QRS Confirmed by Juancho Mayes ([id number]) on 04/21/2025 5:35:44 PM Referred By: Juan C Rosales Confirmed By: Juancho Mayes
[2025-04-21 18:47] LABS: Appearance Urine Clear (Clear); Glucose Urine UA Negative (Negative)
[2025-04-22 06:11] LABS: Hematocrit (blood only) 28.8 % (37.0-47.0); Hemoglobin 9.2 g/dl (12.0-16.0); Mean Corpuscular Hemoglobin 28.4 pg (25.0-34.0); Mean Corpuscular Volume 88.9 fL (80.0-100.0); Platelet Count 174 K/uL (130-400); RDW Standard Deviation 62.3 fL (36.4-46.3); Red Blood Count 3.24 M/uL (4.20-5.40); White Blood Count 7.43 K/ul (4.8-10.8)
[2025-04-22 06:33] LABS: Anion Gap 7.0 (3-11); Blood Urea Nitrogen 15.0 mg/dl (6-23); Calcium 8.3 mg/dl (8.6-10.3); Carbon Dioxide 28.0 mmol/L (21-32); Chloride 101.0 mmol/L (98-107); Creatinine Clr Calc Pharmacy 50.4 ml/min; Glucose 98.0 mg/dl (70-99(Fasting)); Potassium 3.6 mmol/L (3.5-5.1); Sodium 136.0 mmol/L (136-145)
--- NOTE | 2025-04-22 06:45 | Discharge Summary ---
Date of Service April 22, 2025 Admission HPI Per Admitting Provider Patient is a 84 year old female with history of ovarian cancer (dx 2016, multiple chemotherapeutic interventions), chronic anemia (baseline ~8.5), and recent DVT and saddle PE on lovenox --> apixaban who presents with weakness and referral to [facility] ED following outpatient lab studies showing hgb ~5. Patient reports progressive weakness, easy fatigue and dyspnea on exertion without any reported hematochezia or melanotic stools. She's been on apixaban for weeks and tolerated well otherwise. She reports no other symptoms presently, including headache, vision changes, nausea/vomiting, chest pain, palpitations, worsening abdominal pain, numbness/tingling, weakness or other bruising/bleeding. She follows with [facility] for her metastatic ovarian cancer and had a recent noncontrast CT that showed a lesion pericolonically which was being followed by oncology. History obtained from patient and daughters at bedside/on phone. FHx unknown for parents, no apparent contribution from children. SocHx as noted. Principal Diagnosis Severe anemia Discharge Exam Gen:Pt laying in bed, cooperative, no acute distress Cardio: RRR, no murmurs, clicks or rubs appreciated Resp: CTAB, no increased work of breathing GI: Distended, mildly firm, normoactive bowel sounds MSK: Moving all 4 extremities against gravity Psych: A & O x 3, normal affect Discharge Data Allergies Allergy/AdvReac Type Severity Reaction Status Date / Time piperacillin Allergy Intermediate hives Verified 04/20/25 17:36 tazobactam Allergy Intermediate hives Verified 04/20/25 17:36 oxaprozin AdvReac Intermediate FEET Verified 04/20/25 17:36 SWELLING, SKIN PEELING Consultations 04/20/25 17:36 ED Decision to Admit Stat 04/20/25 21:17 Consult Gastroenterology Routine 04/21/25 01:21 Consult Hematology Routine Ordered Studies 04/20/25 19:00 CT Abdomen and Pelvis [CT abd pelvis wo con] Routine Hospital Course (1) Acute GI bleedin84 y/o female h/o ovarian cancer, recent DVT/PE on apixaban, chronic baseline anemia p/w severe anemia w/ concern for acute GI bleed Acute severe anemia in the setting of heme +ve stools - holding apixaban - repeat CT abd for evaluation of intraabdominal changes - Received 3 units, goal of > 7 with 2 hr post transfusion H/H and q4h surveillance following - Hbg is 9.2 this am - gastroenterology consultation , recommendations appreciated No endoscopy at this time - Pt's diet resumed, dietitian consulted due to oncology status - Continue IV famotidine drip - Plan to resume anticoagulation upon DC with Lovenox 40mg qd Ovarian cancer, metastatic with malignant ascites - was due for abdominal paracentesis 04/20, not performed - Heme/Onc consulted recommendations appreciated Pt to follow up with out pt oncology - ondansetron for anti-emetic, consider addition of Compazine for breakthrough Leg edema Pt had been recently prescribed lasix for progressive LE edema, but has not started taking at home. - Pt presenting with 1-2+ edema at ankles and feet - Given 20mg lasix PO 04/21 - K is 3.6 in AM labs Severe chronic constipation - monitor closely, low threshold to restart bowel regimen to prevent obstipation but will withold presently in the setting of GIB Hypothyroidism - Continue levothyroxine 150mcg F/E/N - transfusion DVT PPX - contraindicated (2) Anemia: (3) Malignant ascites: (4) Ovarian cancer: (5) Hypothyroidism: Plan 84 y/o female h/o ovarian cancer, recent DVT/PE on apixaban, chronic baseline anemia p/w severe anemia w/ concern for acute GI bleed # Acute severe anemia in the setting of heme +ve stools - d/c apixaban - NPO - repeat CT abd for evaluation of intrabodominal changes - transfuse 3 units, goal of > 7 with 2 hr post transfusion H/H and q4h surveillance following - gastroenterology consultation for further evaluation and consideration of endoscopy for ablation in the setting of need for anticoagulation w/ active recent DVT/PE - PPI IV drip #Ovarian cancer, metastatic with malignant ascites - was due for abdominal paracentesis today and has not yet done - consider consultation w/ hematology oncology - ondansetron for anti-emetic, consider addition of compazine for breakthrough #Severe chronic constipation - monitor closely, low threshold to restart bowel regimen to prevent obstipation but will withold presently in the setting of GIB #Hypothyroidism - restart levothyroxine in AM F/E/N - transfusion DVT PPX - contraindicated Total Time Total Time Spent Total Time Spent (In Minutes): As per attending physicians attestation Discharge Plan Discharge Items Patient Disposition: Home - Self-Care Reason For Visit: WEAKNESS Discharge Diagnosis: Severe anemia Condition on Discharge: Fair Activity: Resume your previous activity Non-emergency contact: Primary Care Provider Call non-emergency contact if: your symptoms worsen Follow-up/Referrals: Nicol Tobar MD [Primary Care Provider] - 04/29/25 9:05 am (Hospital follow up on , April 29 at 9:05 am.) Diet: Regular Ambulatory Orders: Complete Blood Count no Diff (Timed) Timeframe: 3 Days Location: Determined by Patient Ordered By: Leora Weinberg Attending Provider Instructions: You were admitted for severe anemia and received 3 units of blood. After receiving blood your blood counts stabilized. Gastroenterology was consulted and did not feel endoscopy was appropriate at this time. Hematology/Oncology was also consulted, no further intervention was determined necessary at this time. We have placed and order to recheck your blood counts in 2-4 days at the lab of your choice. We recommend that you restart your blood thinners, but that you stop Eliquis and start lovenox 40mg daily You can resume ascites fluid drainage at home per standard parameters. We recommend that you follow up with your PCP in the next 5-7 days. Please discuss further use of lasix with your PCP as well as high potassium diet verses addition of potassium supplement. Please also follow up with your outpatient oncologist. Pending Studies at Discharge: No Stand-Alone Forms: My [facility] [employer], Smoking Cessation Medications and DC Order Prescriptions: New enoxaparin [Lovenox] 40 mg/0.4 mL syringe 40 mg subcut DAILY 30 Days Qty: 12 0RF Continued levothyroxine [Synthroid] 150 mcg tablet 150 mcg PO DAILYBB Qty: 30 0RF acetaminophen 650 mg tablet extended release 1,300 mg PO BID gabapentin [Neurontin] 100 mg capsule 200 mg PO BID polyethylene glycol 3350 [Miralax] 17 gram powder in packet 8.5 g PO DAILY doxorubicin, peg-liposomal [Doxil] 2 mg/mL Suspension 2 mg IV .[id number] Rx Instructions: LAST GIVEN ON 03/19/25. Caregiver unsure of strength at this date/time. ondansetron HCl 8 mg tablet 8 mg PO Q8H PRN (Reason: Nausea And Vomiting) prochlorperazine maleate 10 mg tablet 10 mg PO Q6H PRN (Reason: Nausea And Vomiting) ascorbate calcium (vitamin C) 500 mg Tablet 1,000 mg PO DAILY pyridoxine (vitamin B6) [Vitamin B-6] 100 mg Tablet 100 mg PO DAILY pantoprazole 40 mg Tablet,Delayed Release (Dr/Ec) 40 mg PO DAILY Qty: 30 0RF sennosides-docusate sodium [Senokot-S] 8.6-50 mg tablet 1 - 2 tab-cap PO BID PRN (Reason: constipation) Qty: 60 2RF Discontinued Eliquis 5 mg tablet 5 mg PO BID Discharge Orders: Discharge Order (Routine); Ordered 04/22/25 Ordered By: Leora Monae Admission Data Admit Date/Time: 04/20/25 18:34 Attending Provider: Juancho Tavera Admit Provider: Darcy Fong Primary Care Provider: Nicol Tobar Other Providers: Cristo Marie Mitchell I; Cathy Mendez Other Interventions: Discharge Summary Assessment (RN) Last Done: 04/22/25 13:50 Supervising Physician Co-Signing Physician Notes Attending attestation Pt seen and examined in concert with Dr. Monae. In agreement with the documented findings as noted in the resident documentation with any exceptions or additions as noted here. Resting comfortably in bed feeling improved fatigue and SOB following transfusions. VS as noted. On examination, S1/S2 nl RRR no MCG. CTAB. Abd NT/ND BS+ve Acute anemia in the setting of GI bleed and iron deficiency - GI consultation - no procedural intervention planned at this time. Continue surveillance of hgb, PPI IV and consider transition to PO when stable in AM Ovarian cancer, metastatic w/ malignant ascites - bedside paracentesis today. Ondansetron for symptom management. Consultation for hematology by patient request h/o severe constipation - monitor for worsening sx, gentle bowel regimen if needed Else see resident documentation as noted. Resident Activity Tracking Resident Involvement: Resident Care Provided Care Provided: Adult Hospital Medicine
[2025-04-22 11:40] VITALS: BP 152/83; PULSE 101; RESP 25; TEMP 98.1; O2SAT 95
[2025-04-22] MEDS: HEPARIN 100 UNIT/ML 5ML FLUSH FLUSH PRN (15:20)
== END 2025-04-22 15:31 | disposition home or self-care (01) | DRG 377 ==
LOC: ED 15:14 → EDINP 18:34 → 2E 21:17
DX: I26.92 Saddle embolus of pulmonary artery without acute cor pulmonale; T45.1X5A Adverse effect of antineoplastic and immunosuppressive drugs, initial encounter; K59.09 Other constipation; C78.6 Secondary malignant neoplasm of retroperitoneum and peritoneum; Z88.6 Allergy status to analgesic agent; E03.9 Hypothyroidism, unspecified; K21.9 Gastro-esophageal reflux disease without esophagitis; D62 Acute posthemorrhagic anemia; K92.1 Melena; Z88.1 Allergy status to other antibiotic agents; Z86.711 Personal history of pulmonary embolism; Z79.899 Other long term (current) drug therapy; D53.9 Nutritional anemia, unspecified; Z86.718 Personal history of other venous thrombosis and embolism; C56.9 Malignant neoplasm of unspecified ovary; R18.0 Malignant ascites; I10 Essential (primary) hypertension; D64.81 Anemia due to antineoplastic chemotherapy; Z79.890 Hormone replacement therapy; Z79.01 Long term (current) use of anticoagulants

== ENCOUNTER 2025-06-11 11:22 | Inpatient (IN) ==
--- NOTE | 2025-06-11 12:04 | XRay Report ---
XR chest 1V portable CLINICAL HISTORY: Dyspnea. COMPARISON STUDY: Chest CT March 04, 2025. FINDINGS: Right internal jugular [id number] remains in place. There is no pneumothorax. A large le ft pleural effusion has increased in size since prior exam. Small right pleural effusion. There is di ffuse interstitial thickening. Bibasilar opacities are noted. There is cardiomegaly. IMPRESSION: 1. Cardiomegaly with moderate pulmonary edema. 2. Large left and small right pleural effusions with associated bibasilar opacities which could repre sent atelectasis or pneumonia. ACT 112: Negative or not required by law. Electronically signed by: González Huggins M.D. 06/11/2025 12:03 PM
[2025-06-11 12:06] LABS: Hematocrit (blood only) 36.3 % (37.0-47.0); Hemoglobin 10.9 g/dl (12.0-16.0); Immature Granulocytes # (auto) 0.05 K/uL (0.01-0.20); Immature Granulocytes % (auto) 1.0 %; Mean Corpuscular Hemoglobin 28.7 pg (25.0-34.0); Mean Corpuscular Volume 95.5 fL (80.0-100.0); Platelet Count 258 K/uL (130-400); RDW Standard Deviation 69.4 fL (36.4-46.3); Red Blood Count 3.80 M/uL (4.20-5.40); White Blood Count 4.80 K/ul (4.8-10.8)
[2025-06-11 12:24] LABS: Alanine Aminotransferase 7.0 U/L (7-52); Albumin Globulin Ratio 0.7 (0.9-2); Alkaline Phosphatase 282.0 U/L (34-104); Anion Gap 9.0 (3-11); Bilirubin,Total 0.4 mg/dl (0.2-1.0); Blood Urea Nitrogen 23.0 mg/dl (6-23); Calcium 8.9 mg/dl (8.6-10.3); Carbon Dioxide 35.0 mmol/L (21-32); Chloride 97.0 mmol/L (98-107); Creatinine Clr Calc Pharmacy 49.2 ml/min; Globulin 4.1 gm/dl (2.5-4.0); Glucose 109.0 mg/dl (70-99(Fasting)); Magnesium 1.5 mg/dl (1.7-2.4); Potassium 3.2 mmol/L (3.5-5.1); Sodium 141.0 mmol/L (136-145); Total Protein 6.8 gm/dl (6.0-8.3)
[2025-06-11 12:27] LABS: Anisocytosis Present
[2025-06-11 12:34] LABS: INR 1.1 (0.9-1.1); Partial Thromboplastin Time 35 Seconds (21-31); Prothrombin Time 12.3 Seconds (9.0-12.0)
[2025-06-11 12:41] LABS: Appearance Urine Turbid (Clear); Bacteria Urine Automated 3+ (None Seen); Epithelial Cell Urine Auto 0-2 /hpf (0-2); Glucose Urine UA Negative (Negative); WBC Urine Automated >50 /hpf (0-5)
[2025-06-11] MEDS: OPTIRAY 320 125ml IV ONE (12:45)
--- NOTE | 2025-06-11 13:00 | CT Scan Report ---
CT ANGIOGRAM OF THE CHEST CLINICAL HISTORY: Shortness of breath. History of pulmonary emboli. Ovarian cancer. COMPARISON STUDY: Chest radiograph performed earlier today. Chest CT March 04, 2025. TECHNIQUE: Following the IV administration of 62 cc of Optiray 320, CT angiogram of the chest was per formed from the upper abdomen to the thoracic inlet utilizing the pulmonary embolus protocol. Images are reviewed in the axial, sagittal, and coronal planes. 3-D MIPS images are created and assessed. IV contrast was administered without complication. A dose lowering technique was utilized adhering to the principles of ALARA. CT DOSE: 585.54 mGy.cm FINDINGS: The pulmonary emboli on CT of March 04, 2025 have resolved although subsegmental pulmonary ar teries are suboptimally assessed on this exam due to respiratory motion. The saddle pulmonary embolus prior study is no longer present. There is no thoracic aortic dissection. The heart is mildly enlarg ed. There is no pericardial effusion. There is no pneumothorax. A large left pleural effusion has sig nificantly increased in size since prior chest CT. A large right pleural effusion has developed. Ther e is associated compressive left lower lobe atelectasis. There is segmental right lower lobe atelecta sis as well as segmental left upper lobe atelectasis. There is no thoracic lymphadenopathy. Visualize d portions of the upper abdomen demonstrate multiple hepatic metastases as well as omental and perito artie implants. A small amount of upper abdominal ascites is noted. Body wall edema is present. [place] lymphadenopathy is again noted. IMPRESSION: 1. No pulmonary emboli identified. Resolution of the pulmonary emboli on CT of March 04, 2025. 2. Significant increase in large bilateral pleural effusions, left larger than right. Associated comp ressive left lower lobe collapse and segmental left upper lobe and right lower lobe atelectasis. 3. Upper abdominal ascites, lymphadenopathy, peritoneal/omental implants and hepatic metastases. 4. Body wall edema suggestive of anasarca. ACT 112: Negative or not required by law. Electronically signed by: González Huggins M.D. 06/11/2025 12:59 PM
--- NOTE | 2025-06-11 13:44 | History & Physical Report ---
Date of Service June 11, 2025 Assessment & Plan (1) Acute and chronic respiratory failure: Plan: Dyspnea/orthopnea, bilateral pleural effusion With history of metastatic ovarian cancer CTA: Resolution of prior PE. No PE seen. Significant increase in large bi lateral pleural effusions left greater than light. Compressive left lower lobe collapse due to effusions. Apical abdominal ascites/adenopathy/peritoneal and omental implants and hepatic metastasis are noted. 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 Last echo 02/2025 with EF 60 to 65%, mild concentric LVH Patient took Eliquis morning of 06/11/2025 Pulmonology consulted BNP mildly elevated, is with evidence of total body fluid overload Lasix 40 mg p.o. daily converted to IV BID. Goal net negative -1-1.5 L daily - +40meq KCl supplmentation now, and 20 MEQ BID while diuresing. BMP daily, additional repletion as needed - Pt would like to talk w/ her daughter about thoracentesis. For now will continue diuresis, and switch to heparin gtt while eliquis is held Metastatic ovarian cancer With PleurX catheter for malignant ascites On doxorubicin palliative treatment q. 28 days, restarted 05/21/2025 Doxorubicin held Echo pending to evaluate for cardiomyopathy and effusion Last echo EF 60 to 65%, no regional wall motion abnormalities Hypothyroidism Continue Synthroid ? UTI versus asymptomatic bacteriuria Patient was treated with cefepime for suspected UTI based on infected appearing UA and possible frequency. She denies fever chills sweats and does not have dysuria; however she does endorse urinary incontinence possibly with more frequency. UA without epithelial cell contamination. will continue treatment with Rocephin and follow UCx Blood cultures drawn in the ER She is not hypotensive, no leukocytosis. Does not appear septic/toxic DVT prophylaxis: Anticoagulated CODE STATUS: DNR/DNI Diet: Heart healthy Disposition: PCU (2) Bilateral lower extremity edema: (3) Malignant ascites: (4) Pleural effusion: (5) HTN (hypertension): (6) Ovarian cancer: History of Present Illness Primary Care Provider: Whit Farley MD Simran is an 84-year-old female with a history of GI bleed and iron deficiency anemia, metastatic ovarian cancer with ascites on Doxil q. 28 days, and DVT/PE on Lovenox who was seen at PCPs office and was found to be weak with progressive dyspnea and was referred to the ER for further evaluation. Assessment in the ER CTA shows no PE, significant increasxe in large bilateral pleural effusions left larger than right with compressive atelectasis, body wall edema suggestive of anasarca. Troponin is normal, BMP 117. She does not have a leukocytosis. Last echo is with EF 60 to 65%, elevated RVSP, no regional wall motion abnormalities. D/w Pulm by ER --> has been on eliquis which is held. Would benefit from thorocentesis, but currently limited by eliquis Per patient: Simran is seen at the bedside. She reports that she has had progressive shortness of breath over the last few days, and probably a few weeks. She endorses orthopnea/shortness of breath laying flat. She denies any chest pain or chest pressure, but notes she is more short of breath on exertion and notes some shortness of breath at rest today. She saw her PCP concerned her shortness of breath might be due to a cold, she was found to be hypoxic and was referred to the ER. She denies fever, chills, sweats. She has had a dry cough and small amount of clear sputum production, denies significant sputum production. Again endorses orthopnea worse in the last few days. She has history of urinary incontinence and is not sure if she has more frequency or not lately but denies dysuria. She was switched from Lovenox treatment for past PE/DVT toEliquis around 3 weeks ago. She switched as she had a lot of bruising on her abdomen due to the Lovenox. She took her Eliquis in the morning of 06/11/2025. She reports she has a PleurX for drainage of ascitic fluid, although notes that she did not have much fluid that drained last time. 2 weeks ago had around 2 L of fluid removed. She has had a significant increase increase in lower extremity swelling and was worried this could be due to blood clots versus fluid. She reports she has been taking Lasix 20 mg daily. Baseline weight is around 150 pounds. She has been undergoing doxorubicin treatment. She restarted Doxil q. 28-day treatment on 05/21/2025. Given is palliative in nature, she currently also follows with palliative care. She is aware of hospice and hospice benefits and anticipates transitioning to this when ready, but has not yet felt ready for this. No tobacco/alcohol use Allergies, medical history, surgical history reviewed Confirms DNR/DNI status at the bedside Allergies Allergy/AdvReac Type Severity Reaction Status Date / Time piperacillin Allergy Intermediate hives Verified 06/11/25 09:37 tazobactam Allergy Intermediate hives Verified 06/11/25 09:37 oxaprozin AdvReac Intermediate FEET Verified 06/11/25 09:37 SWELLING, SKIN PEELING Home Medications Medication Instructions Recorded Confirmed Type acetaminophen 650 mg 1,300 mg PO BID aches and pains 03/13/23 06/11/25 History tablet,extended release gabapentin 100 mg capsule 200 mg PO BID neuropathy 03/13/23 06/11/25 History (Neurontin) ascorbate calcium (vitamin C) 500 1,000 mg PO DAILY 02/24/25 06/11/25 History mg tablet doxorubicin, peg-liposomal 2 mg/mL 2 mg IV .[id number] 02/24/25 06/11/25 History intravenous suspension (Doxil) ondansetron HCl 8 mg tablet 8 mg PO Q8H PRN Nausea And Vomiting 02/24/25 06/11/25 History prochlorperazine maleate 10 mg 10 mg PO Q6H PRN Nausea And 02/24/25 06/11/25 History tablet Vomiting pyridoxine (vitamin B6) 100 mg 100 mg PO DAILY 02/24/25 06/11/25 History tablet (Vitamin B-6) pantoprazole 40 mg tablet,delayed 40 mg PO DAILY #30 tabs 03/01/25 06/11/25 Rx release sennosides 8.6 mg-docusate sodium 1 - 2 tab-cap (1 - 2 x 8.6-50 mg) 03/23/25 0 06/11/25 Rx 50 mg tablet (Senokot-S) PO BID PRN constipation #60 tabs polyethylene glycol 3350 17 gram 8.5 g PO DAILY 04/20/25 06/11/25 History oral powder packet (Miralax) levothyroxine 150 mcg tablet 150 mcg PO DAILYBB #30 tabs 05/19/25 06/11/25 Rx (Synthroid) enoxaparin 40 mg/0.4 mL 40 mg subcut Q12H 05/25/25 06/11/25 History subcutaneous syringe (Lovenox) furosemide 40 mg tablet (Lasix) 40 mg PO DAILY #30 tabs 05/25/25 06/11/25 Rx tramadol 50 mg tablet 50 mg PO Q6H PRN Pain 06/11/25 06/11/25 History Past Med/Surg History Problem List (Updated 06/11/25 @ 10:26 by Steven Bahena, DO) Acute and chronic respiratory failure Physical deconditioning Bilateral lower extremity edema Acute GI bleeding (Acute) Anemia (Acute) Pleural effusion GERD (gastroesophageal reflux disease) (Acute) Malignant ascites (Acute) Hypothyroidism HTN (hypertension) Medical History Stress incontinence Microscopic hematuria 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 Obstipation Acute deep vein thrombosis (DVT) Bacteremia due to Staphylococcus Hypoalbuminemia Acute pulmonary edema Pancytopenia UTI (urinary tract infection) Port-A-Cath in place High blood pressure Thyroid disease Ovarian cancer Overactive bladder History of DVT (deep vein thrombosis) History of pulmonary embolism History of acute renal failure Peripheral neuropathy Hiatal hernia Hx: UTI (urinary tract infection) Surgical History Encounter for pleural drainage tube placement (03/09/25) History of total right knee replacement History of vascular access device S/P insertion of IVC (inferior vena caval) filter History of colonoscopy H/O arthroscopic knee surgery History of left knee replacement H/O abdominal hysterectomy (~2017) History of back surgery (~2016) Family History Other No family history of adverse response to anesthesia Social History Smoking Status: Never smoker Second Hand Exposure: No; Do You Dip or Chew Tobacco: No; Hx Alcohol Use: No Hx Substance Use: No Preferred Language: Serbian Communication Ability: Effective Tier In Required: No Beliefs That Will Affect Care: None marital status: Current Living Situation: Alone current occupational status: retired How many Children do You have: 2 Feels Safe at Home: Yes Assistive Devices: Cane and Walker Physical Exam Physical Exam: General: A&Ox3. NAD. Cooperative. HEENT: Atraumatic, normocephalic. Vision and hearing grossly intact, pupils equal and reactive to light Pulm: Diminished bilaterally, No overt wheezes/rales/rhonchi. Cardiac: RRR, -mrg. Radial pulses intact and symmetrical. JVD is present. Abdominal: Offly distended, nontender Extremities: 4+ bilateral lower extremity pitting edema Results & Data Results & Data Vital Signs (Past 12 Hours) Vital Signs Temp Pulse Resp BP Pulse Ox O2 Del Method 06/11/25 11:58 115 H 06/11/25 11:25 36.8 C 111 H 22 137/98 95 Room Air PG Care Time/CCT Total # of Minutes Spent Total Time Spent with Patient: Total time spent is greater than 50% in coordination of care (as documented) at patient's floor/unit and/or counseling patient: Coding Level of Care Code 74243 INT INP/OBS CARE 3/75MIN Diagnoses Acute and chronic respiratory failure J96.20 Bilateral lower extremity edema R60.0 Malignant ascites R18.0 Pleural effusion J90 Essential hypertension I10 Hypertension type: essential hypertension Malignant neoplasm of ovary, unspecified laterality C56.9 Laterality: unspecified laterality (5) HTN (hypertension) Hypertension type: essential hypertension Qualified Code(s): I10 - Essential (primary) hypertension (6) Ovarian cancer Laterality: unspecified laterality Qualified Code(s): C56.9 - Malignant neoplasm of unspecified ovary
--- NOTE | 2025-06-11 13:53 | Pulmonary Consultation ---
Date of Consultation June 11, 2025 Assessment & Plan (1) Acute and chronic respiratory failure: (2) Pleural effusion: (3) Bilateral lower extremity edema: (4) Ovarian cancer: Laterality: unspecified laterality Qualified Code(s): C56.9 - Malignant neoplasm of unspecified ovary Plan CTA chest 03/04/2025 personally reviewed: Large left and moderate left-sided pleural effusion with compressive atelectasis of the left lower lobe No significant mediastinal lymphadenopathy 2D echo 03/05/2025: EF 60-65%, mild TR, RVSP 30-40 mmHg, RV systolic function normal, mild concentric LVH --Acute hypoxic respiratory failure secondary to bilateral pleural effusion Large on the left, moderate on the right BNP 117 -- History of pulmonary emboli Diagnosed 02/2025 Currently on Eliquis 2.5 Last dose was morning of 06/11/2025 -- Metastatic ovarian cancer -- DNR/DNI Plan: Case was discussed with primary team, ER as well as RN at bedside Patient's daughter Amber was called and updated regarding the patient's condition as well as the options which the patient has This includes diuretics to keep the patient negative balance Thoracentesis, keeping in mind that the risk of bleeding is on the higher side as she is on Eliquis and took last dose today in the morning. Given that the patient's daughter is not with her and has not seen her she would not like to make a decision right now Patient also is not sure what she would want. For the time being would recommend to continue with diuretics to keep the patient negative balance of at least 1.5 L on a daily basis BiPAP nightly and as needed shortness of breath Recommend repeating 2D echo if not already done Recommend starting heparin drip overnight and holding Eliquis. I spent more than 75 minutes looking in the chart, images, discussing the plan of care with the patient, RN as well as primary team Please note the above document was generated using voice recognition software. It may contain grammatical, syntax or spelling errors.Any formal questions or concerns about the content, text or information contained within the body of this dictation should be directly addressed to the provider for clarification. History of Present Illness History of Present Illness 84-year-old female admitted to hospital for worsening shortness of breath Past medical history: Ovarian cancer stage IV, hypothyroidism Pulmonary consulted for pleural effusion At the time of examination patient's friend was in the room She was saturating 100% on 3 L nasal cannula, I went down to 2 L. She was using accessory muscles while talking. Patient stated that she has been having issues with lower extremity swelling and exertional shortness of breath which has been going on for approximately a week or so. Better denies any dysuria or diarrhea. She was recently started on Lasix. No hematuria, no hematochezia, no epistaxis. Denies any cough. No hemoptysis. She does have a Pleurx catheter and drains that on a regular basis Social history: Lifetime non-smoker Does have a cat dog bird as well as horses Allergies Allergy/AdvReac Type Severity Reaction Status Date / Time piperacillin Allergy Intermediate hives Verified 06/11/25 09:37 tazobactam Allergy Intermediate hives Verified 06/11/25 09:37 oxaprozin AdvReac Intermediate FEET Verified 06/11/25 09:37 SWELLING, SKIN PEELING Home Medications Medication Instructions Recorded Confirmed Type acetaminophen 650 mg 1,300 mg PO BID aches and pains 03/13/23 06/11/25 History tablet,extended release gabapentin 100 mg capsule 200 mg PO BID neuropathy 03/13/23 06/11/25 History (Neurontin) ascorbate calcium (vitamin C) 500 1,000 mg PO DAILY 02/24/25 06/11/25 History mg tablet doxorubicin, peg-liposomal 2 mg/mL 2 mg IV .[id number] 02/24/25 06/11/25 History intravenous suspension (Doxil) ondansetron HCl 8 mg tablet 8 mg PO Q8H PRN Nausea And Vomiting 02/24/25 06/11/25 History prochlorperazine maleate 10 mg 10 mg PO Q6H PRN Nausea And 02/24/25 06/11/25 History tablet Vomiting pyridoxine (vitamin B6) 100 mg 100 mg PO DAILY 02/24/25 06/11/25 History tablet (Vitamin B-6) pantoprazole 40 mg tablet,delayed 40 mg PO DAILY #30 tabs 03/01/25 06/11/25 Rx release sennosides 8.6 mg-docusate sodium 1 - 2 tab-cap (1 - 2 x 8.6-50 mg) 03/23/25 06/11/25 Rx 50 mg tablet (Senokot-S) PO BID PRN constipation #60 tabs polyethylene glycol 3350 17 gram 8.5 g PO DAILY 04/20/25 06/11/25 History oral powder packet (Miralax) levothyroxine 150 mcg tablet 150 mcg PO DAILYBB #30 tabs 05/19/25 06/11/25 Rx (Synthroid) enoxaparin 40 mg/0.4 mL 40 mg subcut Q12H 05/25/25 06/11/25 History subcutaneous syringe (Lovenox) furosemide 40 mg tablet (Lasix) 40 mg PO DAILY #30 tabs 05/25/25 06/11/25 Rx tramadol 50 mg tablet 50 mg PO Q6H PRN Pain 06/11/25 06/11/25 History Patient History Medical History Stress incontinence Microscopic hematuria 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 Obstipation Acute deep vein thrombosis (DVT) Bacteremia due to Staphylococcus Hypoalbuminemia Acute pulmonary edema Pancytopenia UTI (urinary tract infection) Port-A-Cath in place High blood pressure Thyroid disease Ovarian cancer Overactive bladder History of DVT (deep vein thrombosis) History of pulmonary embolism History of acute renal failure Peripheral neuropathy Hiatal hernia Hx: UTI (urinary tract infection) Surgical History Encounter for pleural drainage tube placement (03/09/25) History of total right knee replacement History of vascular access device S/P insertion of IVC (inferior vena caval) filter History of colonoscopy H/O arthroscopic knee surgery History of left knee replacement H/O abdominal hysterectomy (~2016) History of back surgery (~2016) Family History Other No family history of adverse response to anesthesia Social History Smoking Status: Never smoker Second Hand Exposure: No; Do You Dip or Chew Tobacco: No; Hx Alcohol Use: No Hx Substance Use: No Preferred Language: Kiswahili Communication Ability: Effective 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 Maintenance 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 Required: No Beliefs That Will Affect Care: None marital status: Current Living Situation: Alone current occupational status: retired How many Children do You have: 2 Feels Safe at Home: Yes Assistive Devices: Cane and Walker Review of Systems 2 Review of Systems: All systems reviewed & are unremarkable except as noted in HPI & below Physical Exam 2 Physical Exam: Constitutional: Using accessory muscles to breathe HEENT: EOMI, PERRLA Respiratory system: Decreased air entry bilaterally, no wheeze, no rhonchi, positive crackles bilateral lower lobes CVS: S1-S2 positive, accentuated P2 Abdomen: Soft, nontender, nondistended, positive bowel sounds x4, Pleurx catheter left upper quadrant Extremities: +2 pulses bilaterally radialis/ dorsalis pedis, no cyanosis, +3 edema bilateral lower extremity, anasarca Neuro: Awake alert oriented x3 Psych: Normal mood and affect G/U: No Ladd Skin: no rashes, warm and dry Lymphatic: no cervical or axillary lymphadenopathy Results & Data Results & Data Vital Signs (Past 12 Hours) Vital Signs Temp Pulse Resp BP Pulse Ox O2 Del Method 06/11/25 11:58 115 H 06/11/25 11:25 36.8 C 111 H 22 137/98 95 Room Air Laboratory Results 06/11/25 11:40 06/11/25 11:40 PG Care Time/CCT Total # of Minutes Spent Total Time Spent with Patient: Total time spent is greater than 50% in coordination of care (as documented) at patient's floor/unit and/or counseling patient: [place] [address] INT INP/OBS CARE 3/75MIN Patient Type New Diagnoses Acute and chronic respiratory failure J96.20 Pleural effusion J90 Bilateral lower extremity edema R60.0 Malignant neoplasm of ovary, unspecified laterality C56.9 Laterality: unspecified laterality
[2025-06-11] MEDS: CEFEPIME 2000MG 2,000 MG/20 ML SYR IV STA (14:30)
[2025-06-11] MEDS ORDERED: Heparin IV Adult Wt-Based Standard *NO* INITIAL Bolus Protocol IV STA (15:31)
[2025-06-11] MEDS ORDERED: PROCHLORPERAZINE MALEATE 10 MG TAB PO PRN (16:19)
[2025-06-11] MEDS ORDERED: DOCUSATE SODIUM/SENNA 50/8.6MG TAB PO PRN (16:19)
[2025-06-11] MEDS: POTASSIUM CHLORIDE CRTAB 20 MEQ TABCR PO STA (16:50)
[2025-06-11] MEDS: FUROSEMIDE 40 MG/4 ML VIAL IV ONE (16:52)
[2025-06-11] MEDS: HEPARIN 25000 UNIT/500 ML D5W 25,000 UNITS/500 ML BAG IV SCH (16:54)
--- NOTE | 2025-06-11 17:16 | XCELERA ---
[id number]
--- NOTE | 2025-06-11 17:30 | Procedure Note ---
Procedure Note Date of Service June 11, 2025 Bedside Ultrasound: Lung: Left:-Large left-sided pleural effusion with compressive atelectasis of the left lower lobe Right:-Moderate right-sided pleural effusion Please note the above document was generated using voice recognition software. It may contain grammatical, syntax or spelling errors.Any formal questions or concerns about the content, text or information contained within the body of this dictation should be directly addressed to the provider for clarification. [facility] [place] Procedure Codes (Charges) Pulmonary/Thoracic Procedure 1: Pulmonary and Thoracic: 13319 US, Chest, real time with imaging documentation Coding CPT Codes Pulmonary/Thoracic - Pulmonary and Thoracic: 31873 US, Chest, real time with imaging documentation ([id number]) Additional Codes Date of Service ([facility].SURGERY)
--- NOTE | 2025-06-11 17:30 | Procedure Note ---
Procedure Note Date of Service June 11, 2025 Procedure: Diagnostic therapeutic ultrasound-guided catheter thoracentesis [facility]: Dr. Taj Estrella Indication: Left pleural effusion Consent: Signed by patient and verified with timeout prior to procedure Anesthesia: 1% lidocaine without epinephrine local. Procedure: Consent was verified and timeout performed. Appropriate imaging studies were reviewed prior to the procedure. Patient was placed in a seated position and limited thoracic ultrasound was performed of the left chest. See separate imaging. Appropriate site above the diaphragm for thoracentesis was selected. The skin was prepped and draped in normal sterile fashion. Lidocaine was used for local analgesia. Fluid was aspirated via the finder needle. A small skin angela was made with the scalpel and the catheter over the needle apparatus was advanced over the rib into the pleural space. Using the syringe one-way valve system, a total of 1000 mL's of sanguinous fluid was removed. Procedure was terminated due to coughing. The catheter was removed and observed to be intact. A sterile dressing was applied. Post procedure chest x-ray was ordered. Fluid was sent for labs, culture and cytology. Complications: None Blood loss: Less than 1 cc [facility] [place] Codes (Charges) Pulmonary/Thoracic Procedure 1: Pulmonary and Thoracic: 87197 Thoracentesis w imaging Coding CPT Codes Pulmonary/Thoracic - Pulmonary and Thoracic: 18585 Thoracentesis w imaging ([id number]) Additional Codes Date of Service ([facility].SURGERY)
--- NOTE | 2025-06-11 17:57 | Emergency Department Note ---
Impression & Plan SOB (shortness of breath), Malignant ascites, Pleural effusion on right, Pleural effusion, left ED Provider Note NAME: ANH WEBSTER AGE: 84 SEX: Female INFORMANT: Patient ED PROVIDER(S): Cristopher Irving MD CHIEF COMPLAINT: Shortness of breath PLAN: Disposition: Admitted Outpatient prescription management: none Referral: None MEDICAL DECISION MAKING: Patient presented because of shortness of breath. She had a chest x-ray performed. She was feeling better on supplemental oxygen. Bilateral pleural effusions noted with the left being much more significant than the right. Patient's blood work revealed mild anemia on CBC. Chemistry panel revealed mild hyperglycemia. Patient had an abnormal urinalysis concerning for infection and was treated with ceftriaxone. I did consult with Dr. Estrella of pulmonary medicine. We did discuss the patient's findings. CT imaging of the chest was ordered. Patient was found to have bilateral effusions and he did meet with the patient for possible thoracentesis. Patient will need further evaluation and management in the hospital. Consultation was made with Dr. Goran Kang of the [facility] service. Patient was evaluated in the ER for further management. Care/management discussed with: customer operations manager, pulmonology, hospitalist Level of care consideration(s): After review of the information above and other included data, I feel the patient requires escalation of care to admission Triage Nursing notes: reviewed and agree them. Vital Signs: reviewed and remarkable for tachycardia Additional History obtained from: none Chronic Medical/Social Conditions affecting care: Ovarian cancer Prior/ Outside/ External records reviewed: none Differential Diagnosis: Reactive airway disease, pneumonia, pneumothorax, COPD, CHF, infections, cardiac ischemia, pulmonary embolism, musculoskeletal, gastrointestinal, as well as other pathologies. Diagnostics, independently interpreted by me: ECG: Twelve-lead ECG was sinus tachycardia 118 bpm. Inferior Q waves. PVCs noted. No ST elevation. Cardiac Monitoring: Cardiac monitoring ordered by me: The patient was placed on continuous cardiac monitoring and observed. It revealed a sinus tachycardia at 105 bpm. Medical decision rules: none Imaging studies: Chest x-ray above. Significant pleural effusions noted with the left being much greater than the right. HPI: 84 year old Female arrives for evaluation of shortness of breath. This started 2 days ago and is worsening. The patient also notes the following associated symptoms, increased lower extremity edema, generalized weakness. Patient was referred by primary as she was found to have low O2 saturations. The patient has supplemental oxygen by EMS for relieving factors. Current pain is rated as 0/10. Patient does note some increased abdominal distention. She has a history of ovarian cancer and ascites. Patient also notes having history of blood clot and is anticoagulated. She was previously on Lovenox but is taking Eliquis at this point. Pt denies LOC, headache, fevers, chills, diaphoresis, visual changes, neck pain, chest pain, nausea, vomiting, abdominal pain, back pain, melena, hematochezia, urinary symptoms, numbness, rash, or other complaints. PAST MEDICAL HISTORY: See Below, hypertension, ovarian cancer PAST SURGICAL HISTORY: See Below, SOCIAL HISTORY: See Below, retired HOME MEDICATIONS: See Below ALLERGIES: See Below VITALS: See Below PHYSICAL EXAMINATION: GENERAL: Awake, alert, dyspneic-appearing, in no distress HENT: Normocephalic, atraumatic. Oropharynx unremarkable. EYES: Normal conjunctiva. Sclera non-icteric. NECK: Inspection normal. Non-tender. Supple. No nuchal rigidity. FROM. No masses. RESPIRATORY: Clear to auscultation. No wheezes. No rales. Increased respiratory effort. CARDIAC: Tachycardic rate. Normal rhythm. No JVD. GI: Soft, moderately distended. No tenderness to palpation. No rebound or guarding. RECTAL: Deferred. MUSCULOSKELETAL: Atraumatic. Chest examination reveals no tenderness. The back is symmetrical on inspection without obvious abnormality. There is no CVA tenderness to palpation. No joint edema. LOWER EXTREMITIES: Calves are equal size bilaterally and non-tender. No edema. No discoloration. NEURO: Normal sensorium. No sensory or motor deficits noted. SKIN: No rash or jaundice noted. PROCEDURES: none CRITICAL CARE: none OBSERVATION NOTE: none Past Med/Surg History Problem List (Updated 06/11/25 @ 17:54 by Cristopher Irving MD) Pleural effusion, left (Acute) Pleural effusion on right (Acute) SOB (shortness of breath) (Acute) Acute and chronic respiratory failure Physical deconditioning Bilateral lower extremity edema Acute GI bleeding (Acute) Anemia (Acute) Pleural effusion GERD (gastroesophageal reflux disease) (Acute) Malignant ascites (Acute) Hypothyroidism HTN (hypertension) Medical History Stress incontinence Microscopic hematuria 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 Obstipation Acute deep vein thrombosis (DVT) Bacteremia due to Staphylococcus Hypoalbuminemia Acute pulmonary edema Pancytopenia UTI (urinary tract infection) Port-A-Cath in place High blood pressure Thyroid disease Ovarian cancer Overactive bladder History of DVT (deep vein thrombosis) History of pulmonary embolism History of acute renal failure Peripheral neuropathy Hiatal hernia Hx: UTI (urinary tract infection) Surgical History Encounter for pleural drainage tube placement (03/09/25) History of total right knee replacement History of vascular access device S/P insertion of IVC (inferior vena caval) filter History of colonoscopy H/O arthroscopic knee surgery History of left knee replacement H/O abdominal hysterectomy (~2016) History of back surgery (~2015) Family History Other No family history of adverse response to anesthesia Social History Smoking Status: Never smoker Second Hand Exposure: No; Do You Dip or Chew Tobacco: No; Hx Alcohol Use: No Hx Substance Use: No Preferred Language: Bahamian Communication Ability: Effective 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 Beliefs That Will Affect Care: None marital status: Current Living Situation: Alone current occupational status: retired How many Children do You have: 2 Feels Safe at Home: Yes Assistive Devices: Cane and Walker Allergies Allergies Allergy/AdvReac Type Severity Reaction Status Date / Time piperacillin Allergy Intermediate hives Verified 06/11/25 09:37 tazobactam Allergy Intermediate hives Verified 06/11/25 09:37 oxaprozin AdvReac Intermediate FEET Verified 06/11/25 09:37 SWELLING, SKIN PEELING Home Meds Home Medications Medication Instructions Recorded Confirmed acetaminophen 650 mg 1,300 mg PO BID aches and pains 03/13/23 06/11/25 tablet,extended release gabapentin 100 mg capsule 200 mg PO BID neuropathy 03/13/23 06/11/25 (Neurontin) ascorbate calcium (vitamin C) 500 1,000 mg PO DAILY 02/24/25 06/11/25 mg tablet doxorubicin, peg-liposomal 2 mg/mL 2 mg IV .[id number] 02/24/25 06/11/25 intravenous suspension (Doxil) ondansetron HCl 8 mg tablet 8 mg PO Q8H PRN Nausea And Vomiting 02/24/25 06/11/25 prochlorperazine maleate 10 mg 10 mg PO Q6H PRN Nausea And 02/24/25 06/11/25 tablet Vomiting pyridoxine (vitamin B6) 100 mg 100 mg PO DAILY 02/24/25 06/11/25 tablet (Vitamin B-6) polyethylene glycol 3350 17 gram 8.5 g PO DAILY 04/20/25 06/11/25 oral powder packet (Miralax) enoxaparin 40 mg/0.4 mL 40 mg subcut Q12H 05/25/25 06/11/25 subcutaneous syringe (Lovenox) tramadol 50 mg tablet 50 mg PO Q6H PRN Pain 06/11/25 06/11/25 Previous Rx's Medication Instructions Recorded pantoprazole 40 mg tablet,delayed 40 mg PO DAILY #30 tabs 03/01/25 release sennosides 8.6 mg-docusate sodium 1 - 2 tab-cap (1 - 2 x 8.6-50 mg) 03/23/25 50 mg tablet (Senokot-S) PO BID PRN constipation #60 tabs levothyroxine 150 mcg tablet 150 mcg PO DAILYBB #30 tabs 05/19/25 (Synthroid) furosemide 40 mg tablet (Lasix) 40 mg PO DAILY #30 tabs 05/25/25 Results & Data (ED) Vital Signs Vital Signs - 24 hr 06/11/25 11:25 06/11/25 11:36 06/11/25 11:58 Temperature 36.8 C Temperature Source Oral Pulse Rate 111 H 115 H Pulse Rate from SpO2 Sensor Respiratory Rate 22 Respiratory Effort / Characteristics Non-Labored Spontaneous Short of Breath Respiratory Depth Normal Shallow Respiratory Pattern Regular Blood Pressure 137/98 Blood Pressure Mean 111 Pulse Oximetry 95 Oxygen Delivery Method Room Air Sepsis Recent Fever Within 48 Hours No Sepsis New/Unexplained Change in Mental Status No Sepsis Action Taken by Nursing No Action Required 06/11/25 12:30 06/11/25 13:00 06/11/25 13:30 Temperature Temperature Source Pulse Rate 117 H 110 H 110 H Pulse Rate from SpO2 Sensor 120 H 109 H Respiratory Rate 24 20 24 Respiratory Effort / Characteristics Respiratory Depth Respiratory Pattern Blood Pressure 123/84 128/84 128/84 Blood Pressure Mean 97 100 87 Pulse Oximetry 93 100 97 Oxygen Delivery Method Sepsis Recent Fever Within 48 Hours Sepsis New/Unexplained Change in Mental Status Sepsis Action Taken by Nursing Laboratory Data 06/11/25 11:40 06/11/25 11:40 Lab Results 06/11/25 06/11/25 06/11/25 Range/Units 11:40 11:47 12:08 WBC 4.80 (4.8-10.8) K/ul RBC 3.80 L (4.20-5.40) M/uL Hgb 10.9 L (12.0-16.0) g/dl POC Hgb 11.6 L (12.0-16.0) g/dl Hct 36.3 L (37.0-47.0) % POC Hct 34 L (37-47) % MCV 95.5 (80.0-100.0) fL MCH 28.7 (25.0-34.0) pg MCHC 30.0 L (32.0-36.0) g/dL RDW Std Deviation 69.4 H (36.4-46.3) fL RDW Coeff of Sydni 20.3 H (11.5-14.5) % Plt Count 258 (130-400) K/uL MPV 9.8 (9.4-12.4) fL Immature Gran % (Auto) 1.0 % Neut % (Auto) 62.7 % Lymph % (Auto) 19.2 % [place] % (Auto) 16.7 % Eos % (Auto) 0.2 % Baso % (Auto) 0.2 % Neut # (Auto) 3.01 (1.40-6.50) K/uL Lymph # (Auto) 0.92 L (1.20-3.40) K/uL [place] # (Auto) 0.80 H (0.11-0.59) K/uL Eos # (Auto) 0.01 (0.00-0.50) K/uL Baso # (Auto) 0.01 (0.00-0.20) K/uL Immature Gran # (Auto) 0.05 (0.01-0.20) K/uL Anisocytosis Present PT 12.3 H (9.0-12.0) Seconds INR 1.1 (0.9-1.1) APTT 35 H (21-31) Seconds PTT Ratio 1.3 POC Sodium 139 (135-144) mmol/L Sodium 141 (136-145) mmol/L POC Potassium 3.3 (3.3-5.0) mmol/L Potassium 3.2 L (3.5-5.1) mmol/L POC Chloride 96 L (101-112) mmol/L Chloride 97 L (98-107) mmol/L Carbon Dioxide 35 H (21-32) mmol/L POC Total CO2 32 H (24-31) mmol/L Anion Gap 9 (3-11) POC Anion Gap 16.0 (16-25) mmol/L POC BUN 22 H (7-18) mg/dl BUN 23 (6-23) mg/dl Creatinine 0.89 (0.6-1.2) mg/dl POC Creatinine 1.1 (0.6-1.3) mg/dl Est Cr Clr Drug Dosing 49.2 ml/min eGFR 64.69 BUN/Creatinine Ratio 25.8 H (10-20) Glucose 109 H (70-99(Fasting)) mg/dl POC Glucose (other) 109 H (70-99) mg/dl Calcium 8.9 (8.6-10.3) mg/dl POC Ioniz Calcium Du 1.11 L (1.12-1.32) mmol/l Magnesium 1.5 L (1.7-2.4) mg/dl Total Bilirubin 0.4 (0.2-1.0) mg/dl AST 16 (13-39) U/L ALT 7 (7-52) U/L Alkaline Phosphatase 282 H (34-104) U/L Troponin I High Sens 10.1 (0-14) pg/ml B-Natriuretic Peptide 117 H (0-100) pg/ml Total Protein 6.8 (6.0-8.3) gm/dl Albumin 2.7 L (3.4-5.0) gm/dl Globulin 4.1 H (2.5-4.0) gm/dl Albumin/Globulin Ratio 0.7 L (0.9-2) Urine Color Yellow Urine Appearance Turbid A (Clear) Urine pH 6.5 (4.5-7.5) Ur Specific [place] 1.009 (1.000-1.030) Urine Protein 1+ H (Negative) Urine Glucose (UA) Negative (Negative) Urine Ketones Negative (Negative) Urine Blood 2+ H (Negative) Urine Nitrite Negative (Negative) Urine Bilirubin Negative (Negative) Urine Urobilinogen Negative (Negative) Ur Leukocyte Esterase 3+ H (Negative) Urine WBC (Auto) >50 H (0-5) /hpf Urine RBC (Auto) 6-10 H (0-2) /hpf U Hyaline Cast (Auto) 3-5 H (0-2) /lpf U Epithel Cells (Auto) 0-2 (0-2) /hpf Urine Bacteria (Auto) 3+ H (None Seen) Urine Comment Administered Medications Heparin Sodium/Dextrose (Heparin 19326 Unit/500 Ml D5w) 25,000 units in 500 mls @ 22 mls/hr IV .[id number] ERIC; Protocol Stop: 07/11/25 16:44 Last Titration: 06/11/25 16:57 Dose: 0 units/hr, 0 mls/hr Documented By: ESG Co-signed By: OO Admin: 06/11/25 16:54 Dose: 1,100 units/hr, 22 mls/hr Documented By: ESG Co-signed By: KJS Discontinued Medications Furosemide (Furosemide 40 Mg/4 Ml Vial) 40 mg IV ONE ONE Stop: 06/11/25 15:32 Last Admin: 06/11/25 16:52 Dose: 40 mg Documented By: ESG Cefepime HCl (Maxipime 2000mg) 2,000 mg in 20 mls @ 5 mls/min IV NOW STA; Protocol Stop: 06/11/25 13:10 Last Admin: 06/11/25 14:30 Dose: 5 mls/min Documented By: FG Ioversol (Optiray 320 125ml) 62 ml IV ONCE ONE Stop: 06/11/25 12:44 Last Admin: 06/11/25 12:45 Dose: 62 ml Documented By: JAR Potassium Chloride (Potassium Chloride Crtab 20 Meq Tabcr) 40 meq PO NOW STA Stop: 06/11/25 15:32 Last Admin: 06/11/25 16:50 Dose: 40 meq Documented By: ESG Imaging Data Radiologist's Impression: Chest X-Ray 06/11/25 11:28 XR chest 1V portable CLINICAL HISTORY: Dyspnea. COMPARISON STUDY: Chest CT March 04, 2025. FINDINGS: Right internal jugular [id number]-[id number] remains in place. There is no pneumothorax. A large left pleural effusion has increased in size since prior exam. Small right pleural effusion. There is diffuse interstitial thickening. Bibasilar opacities are noted. There is cardiomegaly. IMPRESSION: 1. Cardiomegaly with moderate pulmonary edema. 2. Large left and small right pleural effusions with associated bibasilar opacities which could represent atelectasis or pneumonia. ACT 112: Negative or not required by law. Electronically signed by: González Huggins M.D. 06/11/2025 12:03 PM Chest CTA 06/11/25 11:57 CT ANGIOGRAM OF THE CHEST CLINICAL HISTORY: Shortness of breath. History of pulmonary emboli. Ovarian cancer. COMPARISON STUDY: Chest radiograph performed earlier today. Chest CT March 04, 2025. TECHNIQUE: Following the IV administration of 62 cc of Optiray 320, CT angiogram of the chest was performed from the upper abdomen to the thoracic inlet utilizing the pulmonary embolus protocol. Images are reviewed in the axial, sagittal, and coronal planes. 3-D MIPS images are created and assessed. IV contrast was administered without complication. A dose lowering technique was utilized adhering to the principles of ALARA. CT DOSE: 585.54 mGy.cm FINDINGS: The pulmonary emboli on CT of March 04, 2025 have resolved although subsegmental pulmonary arteries are suboptimally assessed on this exam due to respiratory motion. The saddle pulmonary embolus prior study is no longer present. There is no thoracic aortic dissection. The heart is mildly enlarged. There is no pericardial effusion. There is no pneumothorax. A large left pleural effusion has significantly increased in size since prior chest CT. A large right pleural effusion has developed. There is associated compressive left lower lobe atelectasis. There is segmental right lower lobe atelectasis as well as segmental left upper lobe atelectasis. There is no thoracic lymphadenopathy. Visualized portions of the upper abdomen demonstrate multiple hepatic metastases as well as omental and peritoneal implants. A small amount of upper abdominal ascites is noted. Body wall edema is present. Retrocrural lymphadenopathy is again noted. IMPRESSION: 1. No pulmonary emboli identified. Resolution of the pulmonary emboli on CT of March 04, 2025. 2. Significant increase in large bilateral pleural effusions, left larger than right. Associated compressive left lower lobe collapse and segmental left upper lobe and right lower lobe atelectasis. 3. Upper abdominal ascites, lymphadenopathy, peritoneal/omental implants and hepatic metastases. 4. Body wall edema suggestive of anasarca. ACT 112: Negative or not required by law. Electronically signed by: González Huggins M.D. 06/11/2025 12:59 PM Discharge Plan Visit Data Chief Complaint: Shortness of Breath/Dyspnea ED Provider: Cristopher Irving Discharge Problem: SOB (shortness of breath), Malignant ascites, Pleural effusion on right, Pleural effusion, left Patient Disposition: Admitted As Inpatient Condition: Fair Discharge Instructions Interventions: ED Discharge Assessment Last Done: 06/11/25 15:49
--- NOTE | 2025-06-11 18:02 | XRay Report ---
Technique: A frontal view of the chest was obtained Comparison is made to the prior examination dated 03/23/2024 Findings: There are new bilateral lower lobe opacities. The heart size is within normal limits. No definite pneumothorax is seen. There is a new moderate sized left pleural effusion and there is a small right pleural effusion No fracture is noted. There is bilateral glenohumeral osteoarthritis. There is thoracic scoliosis and degenerative disc disease. There is a new right chest wall port with its tip in the SVC Impression: 1. Bilateral lower lobe opacities that could be due to either atelectasis or pneumonia 2. Bilateral pleural effusions Electronically signed by Myke Salgado 06-11-2025 6:01 PM
[2025-06-11 18:14] LABS: Appearance Pleural Fluid Bloody; Color Pleural Fluid Red; RBC Pleural Fluid Auto 69000 /uL; Source Pleural Fluid Left Lung; WBC Pleural Fluid Auto 358 /uL
[2025-06-11] MEDS: GABAPENTIN 100 MG CAP PO SCH (20:49)
[2025-06-12] MEDS: cefTRIAXone SODIUM 2,000 MG/50 ML BAG IV SCH (02:20)
[2025-06-12 04:19] LABS: ANTI-Xa, UFH(UnfractionatedHep 0.95 IU/ml (0.3-0.7)
[2025-06-12] MEDS: LEVOTHYROXINE SODIUM 150 MCG TABLET PO SCH (05:36)
--- NOTE | 2025-06-12 06:10 | Electrocardiogram Report ---
Test Reason : Blood Pressure : */* mmHG Vent. Rate : 118 BPM Atrial Rate : 118 BPM P-R Int : 136 ms QRS Dur : 70 ms QT Int : 330 ms P-R-T Axes : 15 -28 33 degrees QTcB Int : 462 ms Sinus tachycardia with occasional Premature ventricular complexes Low voltage QRS Inferior infarct (cited on or before 04-Mar-2025) Cannot rule out Anteroseptal infarct (cited on or before 26-Sep-2023) Abnormal ECG When compared with ECG of 20-Apr-2025 15:30, Premature ventricular complexes are now Present Confirmed by Joseluis Juarez ([id number]) on 06/12/2025 6:09:46 AM Referred By: REFERRED SELF Confirmed By: Joseluis Juarez
--- NOTE | 2025-06-12 07:34 | Hospitalist Progress Note ---
Date of Service June 12, 2025 Assessment & Plan (1) Acute and chronic respiratory failure: Plan: Dyspnea/orthopnea, bilateral pleural effusion With history of metastatic ovarian cancer CTA: Resolution of prior PE. No PE seen. Significant increase in large bi lateral pleural effusions left greater than light. Compressive left lower lobe collapse due to effusions. Apical abdominal ascites/adenopathy/peritoneal and omental implants and hepatic metastasis are noted. Last dose of Eliquis morning of 06/11/2025 --> converted to heparin gtt. while inpatient Pulmonology consulted. S/p left therapeutic thoracentesis for 1000 cc sanguinous material. Serum protein/pleural protein ratio 0.52, LDH 247 Echo 05/22/2025: LVEF 55-60%, abnormal septal motion. Normal LV size. Mild concentric LVH. Very large left pleural effusion. Mild concentric LVH. 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 Goal net negative -1-2 L daily.Continue potassium supplementation 20 mg twice daily, and additional as needed based on morning labs -UOP 06/11 - 06/12 1600+650 cc urine output via [place], UOP at goal. Total daily output approximately 3.3 L including thoracentesis fluid. Continue Lasix. Thoracentesis fluid exudative, has additional lower extremity edema and evidence of volume overload. Follow creatinine daily. Metastatic ovarian cancer With PleurX catheter for malignant ascites Due for ascitic fluid removal, will perform today. Typically has about 2 L removed every other week. Replace albumin per protocol based on amount of fluid removed, nursing will notify with total volume On doxorubicin palliative treatment q. 28 days, restarted 05/21/2025. Doxorubicin held Hypothyroidism Continue Synthroid UTI versus asymptomatic bacteriuria Patient was treated with cefepime for suspected UTI based on infected appearing UA and ?frequency. She denies fever chills sweats and does not have dysuria; however she does endorse urinary incontinence possibly with more frequency. UA without epithelial cell contamination. will continue treatment with Rocephin and follow UCx. If UCX ng, discontinue antibiotics UCx remain pending Blood cultures drawn in ER remain pending, NGTD She is not hypotensive, no leukocytosis. Does not appear septic/toxic History of DVT/PE Eliquis transition to heparin temporarily as noted. Resolution of prior clots on CTA DVT prophylaxis: Anticoagulated CODE STATUS: DNR/DNI Diet: Heart healthy Disposition: PCU (2) Bilateral lower extremity edema: (3) Malignant ascites: (4) Pleural effusion: (5) HTN (hypertension): (6) Ovarian cancer: Admission and Anticipated Discharge Date Admission Date: June 11, 2025 Subjective Seen at the bedside. She reports her breathing feels much better than yesterday and can she breathe much more comfortably. Does have some increased pressure in her abdomen consistent with prior ascites, was pending removal of ascitic fluid from her PleurX today. No other concerns. Denies fevers chills or sweats this morning. No chest pain. She denies pain from her thoracentesis site Physical Exam Physical Exam: General: A&Ox3. NAD. Cooperative. HEENT: Atraumatic, normocephalic. Vision and hearing grossly intact, pupils equal and reactive to light Pulm: Diminished, grossly clear without wheezes/rales/rhonchi. Cardiac: RRR, -mrg. Radial pulses intact and symmetrical. Abdominal: Distended, nontender. With fluid wave. +pleurX C/D/I Extremities: 4+ bilateral lower extremity pitting edema Results & Data Results & Data Vital Signs (Past 12 Hours) Vital Signs Temp Pulse Resp BP Pulse Ox O2 Del Method 06/12/25 02:31 36.6 C 109 H 18 100/64 94 Nasal Cannula 06/11/25 22:41 36.7 C 80 18 104/68 90 Room Air 06/11/25 21:00 Room Air 06/11/25 20:06 36.8 C 117 H 20 116/77 95 Room Air PG Care Time/CCT Total # of Minutes Spent Total Time Spent with Patient: Total time spent is greater than 50% in coordination of care (as documented) at patient's floor/unit and/or counseling patient: Coding Level of Care Code 87971 SUB INP/OBS CARE 3/50MIN Diagnoses Acute and chronic respiratory failure J96.20 Bilateral lower extremity edema R60.0 Malignant ascites R18.0 Pleural effusion J90 Essential hypertension I10 Hypertension type: essential hypertension Malignant neoplasm of ovary, unspecified laterality C56.9 Laterality: unspecified laterality (5) HTN (hypertension) Hypertension type: essential hypertension Qualified Code(s): I10 - Essential (primary) hypertension (6) Ovarian cancer Laterality: unspecified laterality Qualified Code(s): C56.9 - Malignant neoplasm of unspecified ovary
[2025-06-12 08:22] LABS: Lymphocytes, Fluid 39 %; Mono,Macrophage,Mesothelial 58 %; Neutrophils, Fluid 3 %
[2025-06-12 08:33] LABS: Hematocrit (blood only) 29.7 % (37.0-47.0); Hemoglobin 9.1 g/dl (12.0-16.0); Immature Granulocytes # (auto) 0.07 K/uL (0.01-0.20); Immature Granulocytes % (auto) 1.4 %; Mean Corpuscular Hemoglobin 29.0 pg (25.0-34.0); Mean Corpuscular Volume 94.6 fL (80.0-100.0); Platelet Count 220 K/uL (130-400); RDW Standard Deviation 68.5 fL (36.4-46.3); Red Blood Count 3.14 M/uL (4.20-5.40); White Blood Count 4.87 K/ul (4.8-10.8)
[2025-06-12] MEDS: MAGNESIUM SULFATE / D5W 1 GM/100 ML BAG IV ONE (08:35)
[2025-06-12] MEDS: PYRIDOXINE HCL 50 MG TAB PO SCH (08:39)
[2025-06-12] MEDS: POTASSIUM CHLORIDE CRTAB 20 MEQ TABCR PO SCH (08:41)
[2025-06-12] MEDS: POLYETHYLENE (MIRALAX) 17 GM PACK PO SCH (08:42)
[2025-06-12 08:50] LABS: Anion Gap 6.0 (3-11); Blood Urea Nitrogen 20.0 mg/dl (6-23); Calcium 8.2 mg/dl (8.6-10.3); Carbon Dioxide 37.0 mmol/L (21-32); Chloride 98.0 mmol/L (98-107); Creatinine Clr Calc Pharmacy 54.6 ml/min; Glucose 113.0 mg/dl (70-99(Fasting)); Potassium 3.2 mmol/L (3.5-5.1); Sodium 141.0 mmol/L (136-145)
[2025-06-12 08:53] LABS: Anisocytosis Present; Polychromasia 1+
--- NOTE | 2025-06-12 09:14 | Pulmonology Progress Note ---
Date of Service June 12, 2025 Assessment & Plan (1) Acute and chronic respiratory failure: (2) Pleural effusion: (3) Bilateral lower extremity edema: (4) Ovarian cancer: Laterality: unspecified laterality Qualified Code(s): C56.9 - Malignant neoplasm of unspecified ovary Plan CTA chest 03/04/2025 personally reviewed: Large left and moderate left-sided pleural effusion with compressive atelectasis of the left lower lobe No significant mediastinal lymphadenopathy 2D echo 06/11/2025: EF 55-60 %, mild TR, RVSP 35 -40 mmHg, RV systolic function normal, mild concentric LVH --Acute hypoxic respiratory failure secondary to bilateral pleural effusion Large on the left, moderate on the right BNP 117 S/p left-sided thoracentesis 06/11/2025, 1 L of sanguinous fluid removed, exudative as per lights criteria Pleural fluid: LDH 247, protein 3.6, pH 7.59 -- History of pulmonary emboli Diagnosed 02/2025 Currently on Eliquis 2.5 Last dose was morning of 06/11/2025 -- Metastatic ovarian cancer -- DNR/DNI Plan: In/out: -3 L, urine output 3400 mL Continue with diuretics to keep the patient negative balance of at least 1.5 L on a daily basis BiPAP nightly and as needed shortness of breath Continue with heparin drip and holding Eliquis. The Pleurx catheter does not seem to be draining anything from the belly. Would recommend to get surgery involved to see if they would want to take it out. Incentive spirometry Case discussed with primary team Please note the above document was generated using voice recognition software. It may contain grammatical, syntax or spelling errors.Any formal questions or concerns about the content, text or information contained within the body of this dictation should be directly addressed to the provider for clarification. Admission and Anticipated Discharge Date Admission Date: June 11, 2025 Subjective Patient seen and examined at bedside. No acute distress, no adverse events overnight Overall says that breathing has improved Was saturating well on room air Denied any chest pain, no belly pain Appetite is poor Denied any nausea or vomiting Review of Systems 2 Review of Systems: All systems reviewed & are unremarkable except as noted in Subjective Physical Exam 2 Physical Exam: Constitutional: Using accessory muscles to breathe HEENT: EOMI, PERRLA Respiratory system: Decreased air entry bilaterally, more decreased on the right, no wheeze, no rhonchi, positive crackles bilateral lower lobes CVS: S1-S2 positive, accentuated P2 Abdomen: Soft, nontender, nondistended, positive bowel sounds x4, Pleurx catheter left upper quadrant Extremities: +2 pulses bilaterally radialis/ dorsalis pedis, no cyanosis, +3 edema bilateral lower extremity, anasarca Neuro: Awake alert oriented x3 Psych: Normal mood and affect G/U: No Ladd Skin: no rashes, warm and dry Lymphatic: no cervical or axillary lymphadenopathy Results & Data Results & Data Vital Signs (Past 12 Hours) Vital Signs Temp Pulse Resp BP Pulse Ox O2 Del Method O2 Flow Rate 06/12/25 08:04 36.5 C 81 18 115/72 98 Nasal Cannula 2 06/12/25 02:31 36.6 C 109 H 18 100/64 94 Nasal Cannula 06/11/25 22:41 36.7 C 80 18 104/68 90 Room Air Laboratory Results 06/12/25 08:01 06/12/25 08:01 PG Care Time/CCT Total # of Minutes Spent Total Time Spent with Patient: Total time spent is greater than 50% in coordination of care (as documented) at patient's floor/unit and/or counseling patient: Coding Level of Care Code 53024 SUB INP/OBS CARE 2/35MIN Diagnoses Acute and chronic respiratory failure J96.20 Pleural effusion J90 Bilateral lower extremity edema R60.0 Malignant neoplasm of ovary, unspecified laterality C56.9 Laterality: unspecified laterality
[2025-06-12 09:19] LABS: Magnesium 1.4 mg/dl (1.7-2.4)
[2025-06-12 12:14] LABS: ANTI-Xa, UFH(UnfractionatedHep 0.68 IU/ml (0.3-0.7)
--- NOTE | 2025-06-12 12:21 | Procedure Note ---
Procedure Note Date of Service June 12, 2025 Procedure: Therapeutic paracentesis from the Pleurx catheter Licensed Weigher: Dr. Taj Estrella Indication: Ascites Consent: Verbal consent was obtained Anesthesia: None Procedure: Under sterile measures and aseptic precautions, all dressing of the Pleurx catheter on the left upper quadrant was removed. The Pleurx catheter was connected to a drainage kit. Only few drops of fluid came out. I even tried to reposition the patient to see if fluid will come out but with no success Pleurx catheter was disconnected. Sterile dressing was applied with Tegaderm. Patient tolerated the procedure well Blood loss: None Bedside Ultrasound: Abdomen: Patient does have small to moderate amount of ascitic fluid but it is significantly loculated, it is appreciated more on the right side Recommendation: Given the Pleurx catheter has not been draining for more than 2 weeks. I think it is reasonable to take it out Would recommend to get in touch with surgery to take it out. Please note the above document was generated using voice recognition software. It may contain grammatical, syntax or spelling errors.Any formal questions or concerns about the content, text or information contained within the body of this dictation should be directly addressed to the provider for clarification. [facility] [place] Procedure Codes (Charges) Abdomen Abdominal: 66150 Abdominal Paracentesis (diagnostic or therapeutic); W/O imaging Pulmonary/Thoracic Procedure 1: Pulmonary and Thoracic: 49798 US, Chest, real time with imaging documentation Coding CPT Codes Abdomen - Abdominal: 84467 Abdominal Paracentesis (diagnostic or therapeutic); W/O imaging ([id number]) Pulmonary/Thoracic - Pulmonary and Thoracic: 08998 US, Chest, real time with imaging documentation ([id number]) Additional Codes Date of Service ([facility].SURGERY)
[2025-06-12] MEDS: POTASSIUM CHLORIDE CRTAB 20 MEQ TABCR PO STA (12:29)
[2025-06-12] MEDS: MAGNESIUM OXIDE 400 MG TAB PO SCH (12:29)
[2025-06-12] MEDS ORDERED: AMPICILLIN 250 MG in SODIUM CHLORIDE 0.9% 50 ML IV SCH (14:15)
[2025-06-12] MEDS: AMPICILLIN 1,000 MG in SODIUM CHLOR 0.9% MINI-B 100 ML IV SCH (14:54)
[2025-06-13 06:59] LABS: Hematocrit (blood only) 30.2 % (37.0-47.0); Hemoglobin 9.0 g/dl (12.0-16.0); Immature Granulocytes # (auto) 0.12 K/uL (0.01-0.20); Immature Granulocytes % (auto) 2.1 %; Mean Corpuscular Hemoglobin 28.6 pg (25.0-34.0); Mean Corpuscular Volume 95.9 fL (80.0-100.0); Platelet Count 213 K/uL (130-400); RDW Standard Deviation 69.8 fL (36.4-46.3); Red Blood Count 3.15 M/uL (4.20-5.40); White Blood Count 5.65 K/ul (4.8-10.8)
[2025-06-13 07:22] LABS: Anisocytosis Present; Polychromasia 2+
[2025-06-13 07:25] LABS: Anion Gap 3 (3-11); Blood Urea Nitrogen 18 mg/dl (6-23); Calcium 8.2 mg/dl (8.6-10.3); Carbon Dioxide 37 mmol/L (21-32); Chloride 100 mmol/L (98-107); Creatinine Clr Calc Pharmacy 58.4 ml/min; Glucose 102 mg/dl (70-99(Fasting)); Sodium 140 mmol/L (136-145)
[2025-06-13 07:29] LABS: ANTI-Xa, UFH(UnfractionatedHep 0.65 IU/ml (0.3-0.7)
--- NOTE | 2025-06-13 08:49 | XRay Report ---
EXAM: AP portable chest EXAM REASON: Follow-up COMPARISON: 06/11/2025 TECHNIQUE: A single AP view of the chest was obtained FINDINGS: The lungs are well-expanded. There are bilateral hazy graduated opacities noted at the lung bases. There is redemonstration of implantable catheter on the right. There is parabronchial cuffing. The cardiac and mediastinal silhouettes are within normal limits. IMPRESSION: 1. Bilateral pleural effusions unchanged from the previous exam. 2. Stable persistent pulmonary edema. Electronically signed by Ayaan Mott 06-13-2025 08:49 AM
[2025-06-13] MEDS: FUROSEMIDE 40 MG/4 ML VIAL IV ONE (10:02)
--- NOTE | 2025-06-13 10:03 | Hospitalist Progress Note ---
Date of Service June 13, 2025 Assessment & Plan (1) Acute and chronic respiratory failure: Plan: Dyspnea/orthopnea, bilateral pleural effusion With history of metastatic ovarian cancer CTA: Resolution of prior PE. No PE seen. Significant increase in large bi lateral pleural effusions left greater than light. Compressive left lower lobe collapse due to effusions. Apical abdominal ascites/adenopathy/peritoneal and omental implants and hepatic metastasis are noted. Last dose of Eliquis morning of 06/11/2025 --> converted to heparin gtt. while inpatient Pulmonology consulted. S/p left therapeutic thoracentesis for 1000 cc sanguinous material. Serum protein/pleural protein ratio 0.52, LDH 247 Echo 05/22/2025: LVEF 55-60%, abnormal septal motion. Normal LV size. Mild concentric LVH. Very large left pleural effusion. Mild concentric LVH. 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 BNP mildly elevated, remains fluid overloaded clinically PLEAT TAPER was on Lasix 40 mg p.o. daily -UOP 06/11 - 06/12 1600+650 cc urine output via Ladd, UOP at goal. Total daily output approximately 3.3 L. Creatinine stable. Lasix 40 mg IV twice daily resumed. Titrate to goal 1-2 L output daily. IR drainage for thoracentesis of residual effusion possible 06/14 Metastatic ovarian cancer With PleurX catheter for malignant ascites Due for ascitic fluid removal, will perform today. Typically has about 2 L removed every other week. Replace albumin per protocol based on amount of fluid removed, nursing will notify with total volume On doxorubicin palliative treatment q. 28 days, restarted 05/21/2025. Doxorubicin held Hypothyroidism Continue Synthroid UTI No dysuria, no fever or chills on admission. ?increased frequency with baseline incontinence UCX with high colony counts of E faecalis and Streptococcus canis Patient with reported history of Zosyn however reports that this was many years ago she was given 3 antibiotics at the same time and had a rash reaction and it is unclear what she was allergic to. She does tolerate amoxicillin for dental procedures. Given this was trialed with ampicillin which she tolerated well Continue ampicillin 1 g every 6 hours History of DVT/PE Heparin GTT while being evaluated for thoracentesis. Can transition to Eliquis after no further procedures indicated warrant discharge DVT prophylaxis: Anticoagulated CODE STATUS: DNR/DNI Diet: Heart healthy Disposition: PCU (2) Bilateral lower extremity edema: (3) Malignant ascites: (4) Pleural effusion: (5) HTN (hypertension): (6) Ovarian cancer: Admission and Anticipated Discharge Date Admission Date: June 11, 2025 Subjective Seen at the bedside. Shortness of breath remains improved although not yet resolved and at baseline. No fevers chills or sweats. No pain. No abdominal pain. Physical Exam Physical Exam: General: A&Ox3. NAD. Cooperative. HEENT: Atraumatic, normocephalic. Vision and hearing grossly intact, pupils equal and reactive to light Pulm: Diminished, basilar crackles, without wheezes/rales/rhonchi. Cardiac: RRR, -mrg. Radial pulses intact and symmetrical. Abdominal: Softly distended, nontender. + Abdominal PleurX C/D/I Extremities: Lower extremity pitting edema present Results & Data Results & Data Vital Signs (Past 12 Hours) Vital Signs Temp Pulse Resp BP Pulse Ox O2 Del Method O2 Flow Rate 06/13/25 07:30 Nasal Cannula 2 06/13/25 07:22 36.6 C 91 H 18 108/69 95 Room Air 06/13/25 03:12 36.5 C 96 H 18 132/85 96 Nasal Cannula 06/12/25 22:27 36.5 C 97 H 18 116/75 96 Nasal Cannula PG Care Time/CCT Total # of Minutes Spent Total Time Spent with Patient: Total time spent is greater than 50% in coordination of care (as documented) at patient's floor/unit and/or counseling patient: Coding Level of Care Code 30197 SUB INP/OBS CARE 3/50MIN Diagnoses Acute and chronic respiratory failure J96.20 Bilateral lower extremity edema R60.0 Malignant ascites R18.0 Pleural effusion J90 Essential hypertension I10 Hypertension type: essential hypertension Malignant neoplasm of ovary, unspecified laterality C56.9 Laterality: unspecified laterality (5) HTN (hypertension) Hypertension type: essential hypertension Qualified Code(s): I10 - Essential (primary) hypertension (6) Ovarian cancer Laterality: unspecified laterality Qualified Code(s): C56.9 - Malignant neoplasm of unspecified ovary
[2025-06-13] MEDS: POTASSIUM CHLORIDE CRTAB 20 MEQ TABCR PO SCH (10:08)
--- NOTE | 2025-06-13 11:15 | Pulmonology Progress Note ---
Date of Service June 13, 2025 Assessment & Plan (1) Acute and chronic respiratory failure: (2) Pleural effusion: (3) Bilateral lower extremity edema: (4) Ovarian cancer: Laterality: unspecified laterality Qualified Code(s): C56.9 - Malignant neoplasm of unspecified ovary Plan CTA chest 03/04/2025 personally reviewed: Large left and moderate left-sided pleural effusion with compressive atelectasis of the left lower lobe No significant mediastinal lymphadenopathy 2D echo 06/11/2025: EF 55-60 %, mild TR, RVSP 35 -40 mmHg, RV systolic function normal, mild concentric LVH --Acute hypoxic respiratory failure secondary to bilateral pleural effusion Large on the left, moderate on the right BNP 117 S/p left-sided thoracentesis 06/11/2025, 1 L of sanguinous fluid removed, exudative as per lights criteria Pleural fluid: LDH 247, protein 3.6, pH 7.59 -- History of pulmonary emboli Diagnosed 02/2025 Currently on Eliquis 2.5 Last dose was morning of 06/11/2025 -- Metastatic ovarian cancer -- DNR/DNI Plan: In/out: -3 L, urine output 3400 mL Chest x-ray on personal review from today still shows bilateral pleural effusion with increased cardiac silhouette Continue with diuretics to keep the patient negative balance of at least 1.5 L on a daily basis Given the patient is still using accessory muscles and complaining of shortness of breath Plan will be to do thoracentesis on the right side today. Incentive spirometry Case discussed with primary team as well as RN at bedside BiPAP nightly and as needed shortness of breath I spent more than 50 minutes looking in the chart, images, discussing the plan of care with the patient, RN as well as primary team Please note the above document was generated using voice recognition software. It may contain grammatical, syntax or spelling errors.Any formal questions or concerns about the content, text or information contained within the body of this dictation should be directly addressed to the provider for clarification. Admission and Anticipated Discharge Date Admission Date: June 11, 2025 Subjective Patient seen and examined at bedside. Was having lunch She was using accessory muscles and seem to be in some respiratory distress She was on 2 L oxygen Denied any abdominal pain No nausea or vomiting Appetite is fair. Review of Systems 2 Review of Systems: All systems reviewed & are unremarkable except as noted in Subjective Physical Exam 2 Physical Exam: Constitutional: Using accessory muscles to breathe HEENT: EOMI, PERRLA Respiratory system: Decreased air entry bilaterally, more decreased on the right, no wheeze, no rhonchi, positive crackles bilateral lower lobes CVS: S1-S2 positive, accentuated P2 Abdomen: Soft, nontender, nondistended, positive bowel sounds x4, Pleurx catheter left upper quadrant Extremities: +2 pulses bilaterally radialis/ dorsalis pedis, no cyanosis, +3 edema bilateral lower extremity, anasarca Neuro: Awake alert oriented x3 Psych: Normal mood and affect G/U: No Ladd Skin: no rashes, warm and dry Lymphatic: no cervical or axillary lymphadenopathy Results & Data Results & Data Vital Signs (Past 12 Hours) Vital Signs Temp Pulse Resp BP Pulse Ox O2 Del Method O2 Flow Rate 06/13/25 11:01 36.6 C 94 H 20 125/79 94 Room Air 06/13/25 07:30 Nasal Cannula 2 06/13/25 07:22 36.6 C 91 H 18 108/69 95 Room Air 06/13/25 03:12 36.5 C 96 H 18 132/85 96 Nasal Cannula Laboratory Results 06/13/25 06:34 06/13/25 07:44 PG Care Time/CCT Total # of Minutes Spent Total Time Spent with Patient: Total time spent is greater than 50% in coordination of care (as documented) at patient's floor/unit and/or counseling patient: Coding Level of Care Code 55076 SUB INP/OBS CARE 3/50MIN Diagnoses Acute and chronic respiratory failure J96.20 Pleural effusion J90 Bilateral lower extremity edema R60.0 Malignant neoplasm of ovary, unspecified laterality C56.9 Laterality: unspecified laterality
--- NOTE | 2025-06-13 15:53 | Procedure Note ---
Procedure Note Date of Service June 13, 2025 Bedside Ultrasound: Lung: Left:-Large left-sided pleural effusion, hypoechoic, clear Right:-Moderate right-sided pleural effusion with compressive atelectasis right lower lobe, clear hypoechoic Please note the above document was generated using voice recognition software. It may contain grammatical, syntax or spelling errors.Any formal questions or concerns about the content, text or information contained within the body of this dictation should be directly addressed to the provider for clarification. [facility] [place] Procedure Codes (Charges) Pulmonary/Thoracic Procedure 1: Pulmonary and Thoracic: 15791 US, Chest, real time with imaging documentation Coding CPT Codes Pulmonary/Thoracic - Pulmonary and Thoracic: 72069 US, Chest, real time with imaging documentation ([id number]) Additional Codes Date of Service ([facility].SURGERY)
--- NOTE | 2025-06-13 15:55 | Procedure Note ---
Procedure Note Date of Service June 13, 2025 Procedure: Diagnostic therapeutic ultrasound-guided catheter thoracentesis Equipment Monitor Phototypesetting: Dr. Taj Estrella Indication: Left-sided pleural effusion Consent: Signed by patient and verified with timeout prior to procedure Anesthesia: 1% lidocaine without epinephrine local. Procedure: Consent was verified and timeout performed. Appropriate imaging studies were reviewed prior to the procedure. Patient was placed in a seated position and limited thoracic ultrasound was performed of the left chest. See separate imaging. Appropriate site above the diaphragm for thoracentesis was selected. The skin was prepped and draped in normal sterile fashion. Lidocaine was used for local analgesia. Fluid was aspirated via the finder needle. A small skin angela was made with the scalpel and the catheter over the needle apparatus was advanced over the rib into the pleural space. Using the syringe one-way valve system, a total of 1000 mL's of serosanguineous fluid was removed. Procedure was terminated due to coughing. The catheter was removed and observed to be intact. A sterile dressing was applied. Post procedure chest x-ray was ordered. Fluid was sent for labs, culture and cytology. Complications: None Blood loss: Less than 1 cc [facility] [place] Procedure Codes (Charges) Pulmonary/Thoracic Procedure 1: Pulmonary and Thoracic: 33855 Thoracentesis w imaging Coding CPT Codes Pulmonary/Thoracic - Pulmonary and Thoracic: 78103 Thoracentesis w imaging ([id number]) Additional Codes Date of Service ([facility].SURGERY)
--- NOTE | 2025-06-13 16:12 | XRay Report ---
EXAM: AP portable chest EXAM REASON: Postthoracentesis COMPARISON: 06/11/2025 TECHNIQUE: A single AP view of the chest was obtained FINDINGS: The lungs are well-expanded. There is redemonstration of bilateral hazy graduated opacities noted in the lower lung zones. There is redemonstration of an implantable catheter on the right IMPRESSION: Bilateral pleural effusions not significantly changed in appearance from the previous exam. Electronically signed by Ayaan Mott 06-13-2025 4:12 PM
[2025-06-13] MEDS: FUROSEMIDE 40 MG/4 ML VIAL IV SCH (17:08)
[2025-06-14 05:11] LABS: Hematocrit (blood only) 29.1 % (37.0-47.0); Hemoglobin 8.8 g/dl (12.0-16.0); Immature Granulocytes # (auto) 0.14 K/uL (0.01-0.20); Immature Granulocytes % (auto) 2.1 %; Mean Corpuscular Hemoglobin 28.7 pg (25.0-34.0); Mean Corpuscular Volume 94.8 fL (80.0-100.0); Platelet Count 194 K/uL (130-400); RDW Standard Deviation 69.0 fL (36.4-46.3); Red Blood Count 3.07 M/uL (4.20-5.40); White Blood Count 6.53 K/ul (4.8-10.8)
[2025-06-14 05:26] LABS: Anion Gap 4.0 (3-11); Blood Urea Nitrogen 17.0 mg/dl (6-23); Calcium 8.2 mg/dl (8.6-10.3); Carbon Dioxide 37.0 mmol/L (21-32); Chloride 99.0 mmol/L (98-107); Creatinine Clr Calc Pharmacy 62.7 ml/min; Glucose 113.0 mg/dl (70-99(Fasting)); Potassium 3.9 mmol/L (3.5-5.1); Sodium 140.0 mmol/L (136-145)
[2025-06-14 05:34] LABS: Anisocytosis Present; Polychromasia 1+
[2025-06-14 05:36] LABS: ANTI-Xa, UFH(UnfractionatedHep 0.49 IU/ml (0.3-0.7)
[2025-06-14] MEDS: HEPARIN DRIP- STOP ORDER ONE (08:38)
[2025-06-14] MEDS: ENOXAPARIN INJ 40 MG/0.4 ML SYR SQ SCH (08:45)
[2025-06-14] MEDS ORDERED: FUROSEMIDE 40 MG/4 ML VIAL IV SCH (09:00)
[2025-06-14 09:12] LABS: Thyroid Stimulating Hormone 0.207 uIu/ml (0.300-4.500)
--- NOTE | 2025-06-14 12:05 | Hospitalist Progress Note ---
Date of Service June 14, 2025 Assessment & Plan (1) Acute and chronic respiratory failure: Plan: Currently requiring 2 L of oxygen to maintain saturation greater than 96%. Continue parenteral Lasix diuresis. Monitor intake and output status post left- sided thoracentesis June 13. She will undergo right-sided thoracentesis June 15. Serial chest x-ray. (2) Malignant ascites: Plan: Known ovarian cancer with carcinomatosis. PleurX catheter in place in the abdominal wall for intermittent paracentesis. (3) Pleural effusion: Plan: Bilateral. May be due to underlying congestive heart failure rather than malignancy. Pulmonary medicine consultation and recommendations appreciated. She underwent left-sided thoracentesis June 13 with 1000 cc fluid removal. She will undergo right-sided thoracentesis June 15. Continue Lasix diuresis. Monitor intake and output. Serial chest x-ray (4) HTN (hypertension): Plan: Stable. Continue current medical management (5) Urinary tract infection: Plan: Streptococcus and Enterococcus isolated on admission. She is currently on intravenous ampicillin, day 4 (6) Acute diastolic CHF (congestive heart failure): Plan: Suspected on admission. Possible cause of bilateral pleural effusions which may not be malignant. Continue Lasix diuresis. Cardiac echo reveals mild LVH with normal ejection fraction. Monitor intake and output. Serial chest x-ray. Await BNP measurement Plan Disposition to be determined by OT and PT evaluations which are ordered and pending. Admission and Anticipated Discharge Date Admission Date: June 11, 2025 Subjective Alert and oriented. Family is at the bedside. Oxygen saturation 96% on 2 L. She will undergo right thoracentesis tomorrowJune 15. She previously underwent left thoracentesis June 13 with 1 L of fluid removed. There may be a component of diastolic CHF causing the bilateral effusions and they may not be actually malignant. Cardiac echo reveals mild LVH with normal ejection fraction. She is responding well to parenteral Lasix therapy. Will repeat chest x-ray again tomorrow, June 15. Thyroid profile is noted. Free T4 levels are slightly elevated and free T3 levels are normal. TSH level is slightly suppressed. Heparin drip has been switched to Lovenox and the evening dose will be held tonight since she will have thoracentesis tomorrow, June 15. She will be started on her usual Eliquis 2.5 mg twice daily going forward. If she remains on oxygen at the time of discharge, she will need a two-step evaluation completed. Review of Systems 2 Review of Systems: Constitutionalno fever or chills ENTno blurred vision, no double vision, no epistaxis, no sore throat Respiratoryno cough, no wheezing, no shortness of breath at rest. She does have dyspnea on exertion Cardiacno palpitations, no chest pain, no syncope Keaton nausea, vomiting, diarrhea, melena, hematochezia GUno urinary retention, no urinary incontinence, no dysuria, no hematuria Musculoskeletalno joint pain, no muscle tenderness Skinno bruising, no rashes, no pruritus Neurono isolated weakness, no paresthesia, no weakness Psychno depression, no anxiety Physical Exam 2 Physical Exam: General-alert and oriented x3, no fever, no chills HEENT-head atraumatic and normocephalic, pupils equal and reactive to light, extraocular muscles intact Neck-no lymphadenopathy or thyromegaly, trachea midline Chest-diminished breath sounds and dullness at the right base. No rhonchi. Cardiac-regular rate and rhythm, normal S1 and S2 Abdomen-mildly distended. Normal bowel sounds, no palpable masses Extremities-no cyanosis, clubbing, or edema Neuro-cranial nerves II through XII intact, motor and sensory function within normal limits, strength symmetrical, no focal deficits Psych-normal affect, normal mood Results & Data Results & Data Vital Signs (Past 12 Hours) Vital Signs Temp Pulse Pulse Resp BP Pulse Ox O2 Del Method 06/14/25 11:02 36.7 C 112 H 19 102/66 96 Room Air 06/14/25 07:14 36.4 C L 84 20 113/72 96 Nasal Cannula 06/14/25 07:00 Nasal Cannula 06/14/25 07:00 107 H 06/14/25 02:45 37 C 96 H 16 105/67 96 Nasal Cannula O2 Flow Rate 06/14/25 11:02 06/14/25 07:14 2 06/14/25 07:00 2 06/14/25 07:00 06/14/25 02:45 2 Laboratory Results 06/14/25 04:47 06/14/25 04:47 PG Care Time/CCT Total # of Minutes Spent Total Time Spent with Patient: Total time spent is greater than 50% in coordination of care (as documented) at patient's floor/unit and/or counseling patient: Coding Level of Care Code 14402 SUB INP/OBS CARE 50MIN Diagnoses Acute and chronic respiratory failure J96.20 Malignant ascites R18.0 Pleural effusion J90 Essential hypertension I10 Hypertension type: essential hypertension Urinary tract infection N39.0 Acute diastolic CHF (congestive heart failure) I50.31 (4) HTN (hypertension) Hypertension type: essential hypertension Qualified Code(s): I10 - Essential (primary) hypertension
[2025-06-15 04:05] LABS: Hematocrit (blood only) 27.5 % (37.0-47.0); Hemoglobin 8.7 g/dl (12.0-16.0); Immature Granulocytes # (auto) 0.13 K/uL (0.01-0.20); Immature Granulocytes % (auto) 1.8 %; Mean Corpuscular Hemoglobin 29.6 pg (25.0-34.0); Mean Corpuscular Volume 93.5 fL (80.0-100.0); Platelet Count 206 K/uL (130-400); RDW Standard Deviation 66.9 fL (36.4-46.3); Red Blood Count 2.94 M/uL (4.20-5.40); White Blood Count 7.16 K/ul (4.8-10.8)
[2025-06-15 04:19] LABS: Anion Gap 5.0 (3-11); Blood Urea Nitrogen 17.0 mg/dl (6-23); Calcium 8.3 mg/dl (8.6-10.3); Carbon Dioxide 35.0 mmol/L (21-32); Chloride 98.0 mmol/L (98-107); Creatinine Clr Calc Pharmacy 62.1 ml/min; Glucose 112.0 mg/dl (70-99(Fasting)); Potassium 4.3 mmol/L (3.5-5.1); Sodium 138.0 mmol/L (136-145)
[2025-06-15 04:31] LABS: ANTI-Xa, UFH(UnfractionatedHep 0.10 IU/ml (0.3-0.7)
--- NOTE | 2025-06-15 09:06 | XRay Report ---
EXAM: XR chest 1V portable CLINICAL HISTORY: CHF, effusions TECHNIQUE: An X-ray image of the chest is obtained in AP projection. COMPARISON: comparison is made with the prior examination dated 06/13/2025 FINDINGS: Pulmonary Parenchyma: OBX.5.1OBX.5.1.1There are prominent pulmonary interstitial markings with hazy ground glass opacities, predominantly in the right mid /OBX.5.1.1OBX.5.1.2 lower and to much lesser degree left lower zones, gossly unchanged since the prior examination./OBX.5.1.2/OBX.5.1 There are moderate right and small left pleural effusions, unchanged since the prior examination. Heart and Mediastinum: Heart size and shape are normal. No mediastinal widening or masses. No hilar or mediastinal lymphadenopathy. Port-A-Cath is again seen with its tip in the cavoatrial junction. Bony Thorax: Bony thorax appears intact without fractures or deformities. Soft Tissues: Soft tissues overlying the chest wall are unremarkable. IMPRESSION: 1. Stable bilateral pleural effusions and underlying airspace opacities, likely related to pulmonary edema. 2. Other findings as described. Electronically signed by Raul Solis 06-15-2025 09:04 AM
--- NOTE | 2025-06-15 12:57 | Hospitalist Progress Note ---
Date of Service June 15, 2025 Assessment & Plan (1) Acute and chronic respiratory failure: Plan: Currently requiring only 1 L of oxygen. She seems to be improving with parenteral Lasix diuresis. Monitor intake and output. Status post left-sided thoracentesis June 13. She will undergo right-sided thoracentesis later today, June 15. Chest x-ray done today, June 15, appears stable. (2) Malignant ascites: Plan: Known ovarian cancer with carcinomatosis. PleurX catheter in place in the abdominal wall for intermittent paracentesis. (3) Pleural effusion: Plan: Bilateral. May be due to underlying congestive heart failure rather than malignancy. Pulmonary medicine consultation and recommendations appreciated. She underwent left-sided thoracentesis June 13 with 1000 cc fluid removal. She will undergo right-sided thoracentesis June 15. Continue Lasix diuresis. Monitor intake and output. Serial chest x-ray (4) HTN (hypertension): Plan: Stable. Continue current medical management (5) Urinary tract infection: Plan: Streptococcus and Enterococcus isolated on admission. She is currently on intravenous ampicillin, day 5. She will complete her antibiotic course while hospitalized (6) Acute diastolic CHF (congestive heart failure): Plan: Suspected on admission. Possible cause of bilateral pleural effusions which may not be malignant. Continue Lasix diuresis. Cardiac echo reveals mild LVH with normal ejection fraction. Monitor intake and output. Serial chest x-ray. Plan I discussed the need for IPR or SNF placement at the time of discharge could be used as a stepping stone before she returns to her home. Apparently, she lives alone. OT and PT assessments have been ordered and remain pending Admission and Anticipated Discharge Date Admission Date: June 11, 2025 Subjective Alert and oriented. She is awaiting right thoracentesis today by interventional radiology. She underwent left thoracentesis already on June 13. Chest x-ray done today, June 15, appears stable. She is only requiring 1 L of oxygen at this time. Will restart Eliquis after right thoracentesis is completed today, June 15. Review of Systems 2 Review of Systems: Constitutionalno fever or chills ENTno blurred vision, no double vision, no epistaxis, no sore throat Respiratoryno cough, no wheezing, no shortness of breath at rest. She does have dyspnea on exertion Cardiacno palpitations, no chest pain, no syncope Keaton nausea, vomiting, diarrhea, melena, hematochezia GUno urinary retention, no urinary incontinence, no dysuria, no hematuria Musculoskeletalno joint pain, no muscle tenderness Skinno bruising, no rashes, no pruritus Neurono isolated weakness, no paresthesia, no weakness Psychno depression, no anxiety Physical Exam 2 Physical Exam: General-alert and oriented x3, no fever, no chills HEENT-head atraumatic and normocephalic, pupils equal and reactive to light, extraocular muscles intact Neck-no lymphadenopathy or thyromegaly, trachea midline Chest-diminished breath sounds and dullness at the right base. No rhonchi. Cardiac-regular rate and rhythm, normal S1 and S2 Abdomen-mildly distended. Normal bowel sounds, no palpable masses Extremities-no cyanosis, clubbing, or edema Neuro-cranial nerves II through XII intact, motor and sensory function within normal limits, strength symmetrical, no focal deficits Psych-normal affect, normal mood Results & Data Results & Data Vital Signs (Past 12 Hours) Vital Signs Temp Pulse Pulse Resp BP Pulse Ox O2 Del Method 06/15/25 11:04 36.2 C L 126 H 20 99/63 L 97 Nasal Cannula 06/15/25 09:53 Nasal Cannula 06/15/25 09:45 111 H 06/15/25 07:06 36.4 C L 110 H 20 105/63 94 Room Air 06/15/25 02:45 36.7 C 118 H 16 108/69 93 Nasal Cannula O2 Flow Rate 06/15/25 11:04 1 06/15/25 09:53 2 06/15/25 09:45 06/15/25 07:06 06/15/25 02:45 1.5 Laboratory Results 06/15/25 03:27 06/15/25 03:27 PG Care Time/CCT Total # of Minutes Spent Total Time Spent with Patient: Total time spent is greater than 50% in coordination of care (as documented) at patient's floor/unit and/or counseling patient: Coding Level of Care Code 57331 SUB INP/OBS CARE 2/35MIN Diagnoses Acute and chronic respiratory failure J96.20 Malignant ascites R18.0 Pleural effusion J90 Essential hypertension I10 Hypertension type: essential hypertension Urinary tract infection N39.0 Acute diastolic CHF (congestive heart failure) I50.31 (4) HTN (hypertension) Hypertension type: essential hypertension Qualified Code(s): I10 - Essential (primary) hypertension
--- NOTE | 2025-06-15 14:19 | Ultrasound Report ---
ULTRASOUND-GUIDED RIGHT THORACENTESIS CLINICAL HISTORY: Large right pleural effusion PROCEDURE: Procedure and risks were explained. Informed consent was obtained. A final timeout was com pleted. The right posterior thorax was prepped and draped in sterile fashion. 1% lidocaine was utiliz ed for skin anesthesia. Utilizing ultrasound guidance, a 5 [place] safety centesis catheter was advanced into the right pleura l effusion. Ultrasound images were obtained. A total of 1300 mL of pleural fluid was removed, with 1 L sent to lab for analysis. The catheter was removed and Band-Aid applied. The patient tolerated the procedure well. A chest x-ray will be obtained post procedure. Vital signs will be monitored postproc edure. IMPRESSION: Ultrasound-guided right thoracentesis as above. Performed, dictated, and signed by Jimmie Mccallum PA-C; to be co-signed by Dr. Oliver Schofield. Electronically signed by: Oliver Schofield M.D. 06/15/2025 2:48 PM
--- NOTE | 2025-06-15 14:34 | XRay Report ---
XR chest 1V not portable CLINICAL HISTORY: Status post thoracentesis. Pleural effusions. COMPARISON STUDY: 06/15/2025 FINDINGS: There is a right-sided Gflwyy-i-[id number] catheter present. The heart is borderline enlarged. Th ere is increased aeration of the right lung with decreased pleural fluid. A small subpulmonic left pl eural effusion is suspected. Bibasilar opacities are likely atelectatic. There is persistent intersti tial thickening, likely secondary to interstitial edema. No pneumothorax is visualized. Arthritic ko nges are present within the shoulders. Loose bodies adjacent to the proximal humeral shafts are again visualized. IMPRESSION: No evidence of pneumothorax status post thoracentesis. Decreasing pleural fluid. ACT 112: Negative or not required by law. Electronically signed by: Lui To M.D. 06/15/2025 2:32 PM
[2025-06-15 14:35] LABS: Appearance Pleural Fluid Hazy; Color Pleural Fluid Amber; RBC Pleural Fluid Auto 15000 /uL; Source Pleural Fluid Right Lung; WBC Pleural Fluid Auto 560 /uL
[2025-06-15] MEDS: APIXABAN 2.5 MG TAB PO SCH (20:59)
[2025-06-16 06:43] LABS: Lymphocytes, Fluid 6 %; Mono,Macrophage,Mesothelial 77 %; Neutrophils, Fluid 17 %
--- NOTE | 2025-06-16 15:52 | Hospitalist Progress Note ---
Date of Service June 16, 2025 Assessment & Plan (1) Acute and chronic respiratory failure: Plan: Resolved. Now on room air. Monitor intake and output. Status post left-sided thoracentesis June 13 and right thoracentesis on June 15. (2) Malignant ascites: Plan: Known ovarian cancer with carcinomatosis. PleurX catheter in place in the abdominal wall for intermittent paracentesis. (3) Pleural effusion: Plan: Bilateral on admission. May be due to underlying congestive heart failure in addition to malignancy. Pulmonary medicine consultation and recommendations appreciated. She underwent left-sided thoracentesis June 13 with 1000 cc fluid removal. She underwent right sided thoracentesis on June 15. Parenteral Lasix switched to oral dosing todayJune 16. Will repeat chest x-ray again tomorrowJune 17 (4) HTN (hypertension): Plan: Stable. Continue current medical management (5) Urinary tract infection: Plan: Streptococcus and Enterococcus isolated on admission. She has completed her course of intravenous ampicillin. (6) Acute diastolic CHF (congestive heart failure): Plan: Suspected on admission. Possible cause of bilateral pleural effusions which may not be entirely malignant. Continue Lasix diuresis. IV dosing switched to oral dosing todayJune 16. Cardiac echo reveals mild LVH with normal ejection fraction. Monitor intake and output. Serial chest x-ray. Plan Case management has petitioned her insurance for approval for discharge to [facility]. She is currently medically stable for discharge. Both OT and PT recommend rehab placement. Admission and Anticipated Discharge Date Admission Date: June 11, 2025 Subjective Alert and oriented. No distress. She is now on room air. Parenteral Lasix switched to oral dosing. Ampicillin has not been discontinued. Will repeat chest x-ray again tomorrow, June 17. Case management has requested authorization for discharge to [facility]. Review of Systems 2 Review of Systems: Constitutionalno fever or chills ENTno blurred vision, no double vision, no epistaxis, no sore throat Respiratoryno cough, no wheezing, no shortness of breath at rest. She does have dyspnea on exertion Cardiacno palpitations, no chest pain, no syncope Keaton nausea, vomiting, diarrhea, melena, hematochezia GUno urinary retention, no urinary incontinence, no dysuria, no hematuria Musculoskeletalno joint pain, no muscle tenderness Skinno bruising, no rashes, no pruritus Neurono isolated weakness, no paresthesia, no weakness Psychno depression, no anxiety Physical Exam 2 Physical Exam: General-alert and oriented x3, no fever, no chills HEENT-head atraumatic and normocephalic, pupils equal and reactive to light, extraocular muscles intact Neck-no lymphadenopathy or thyromegaly, trachea midline Chest-diminished breath sounds and dullness at the right base. No rhonchi. Cardiac-regular rate and rhythm, normal S1 and S2 Abdomen-mildly distended. Normal bowel sounds, no palpable masses Extremities-no cyanosis, clubbing, or edema Neuro-cranial nerves II through XII intact, motor and sensory function within normal limits, strength symmetrical, no focal deficits Psych-normal affect, normal mood Results & Data Results & Data Vital Signs (Past 12 Hours) Vital Signs Temp Pulse Pulse Resp BP Pulse Ox O2 Del Method 06/16/25 14:26 110 H 06/16/25 11:36 36.8 C 107 H 17 101/61 92 Room Air 06/16/25 07:32 106 H 06/16/25 07:32 Room Air 06/16/25 07:15 36.6 C 98 H 19 105/67 94 Room Air Laboratory Results 06/15/25 03:27 06/15/25 03:27 PG Care Time/CCT Total # of Minutes Spent Total Time Spent with Patient: Total time spent is greater than 50% in coordination of care (as documented) at patient's floor/unit and/or counseling patient: Coding Level of Care Code 29552 SUB INP/OBS CARE 3/50MIN Diagnoses Acute and chronic respiratory failure J96.20 Malignant ascites R18.0 Pleural effusion J90 Essential hypertension I10 Hypertension type: essential hypertension Urinary tract infection N39.0 Acute diastolic CHF (congestive heart failure) I50.31 (4) HTN (hypertension) Hypertension type: essential hypertension Qualified Code(s): I10 - Essential (primary) hypertension
[2025-06-16] MEDS: FUROSEMIDE 40 MG TAB PO SCH (16:30)
[2025-06-17 06:36] LABS: Hematocrit (blood only) 27.3 % (37.0-47.0); Hemoglobin 8.5 g/dl (12.0-16.0); Immature Granulocytes # (auto) 0.10 K/uL (0.01-0.20); Immature Granulocytes % (auto) 1.1 %; Mean Corpuscular Hemoglobin 29.1 pg (25.0-34.0); Mean Corpuscular Volume 93.5 fL (80.0-100.0); Platelet Count 208 K/uL (130-400); RDW Standard Deviation 66.8 fL (36.4-46.3); Red Blood Count 2.92 M/uL (4.20-5.40); White Blood Count 8.78 K/ul (4.8-10.8)
[2025-06-17 06:52] LABS: Anion Gap 5.0 (3-11); Calcium 8.6 mg/dl (8.6-10.3); Carbon Dioxide 33.0 mmol/L (21-32); Chloride 95.0 mmol/L (98-107); Potassium 4.5 mmol/L (3.5-5.1); Sodium 133.0 mmol/L (136-145)
[2025-06-17 06:58] LABS: Blood Urea Nitrogen 21.0 mg/dl (6-23); Creatinine Clr Calc Pharmacy 46.5 ml/min; Glucose 101.0 mg/dl (70-99(Fasting))
--- NOTE | 2025-06-17 08:08 | XRay Report ---
EXAM: XR chest 1V portable CLINICAL HISTORY: CHF, effusions TECHNIQUE: An X-ray image of the chest is obtained in AP projection. COMPARISON: 06/15/2025 13:05:49 [employer]. FINDINGS: Pulmonary Parenchyma: Mild progression of the faint right lower zone opacities Stable appearance of the left faint lower zone opacities Stable prominent pulmonary interstitial markings. Stable mild bilateral pleural effusion Heart and Mediastinum: Heart size and shape are normal. No mediastinal widening or masses. No hilar or mediastinal lymphadenopathy. Port-A-Cath is again seen with its tip in the cavoatrial junction. Bony Thorax: Bony thorax appears intact without fractures or deformities. Soft Tissues: Soft tissues overlying the chest wall are unremarkable. IMPRESSION: 1. Mild progression of the faint right lower zone opacities 2. Stable appearance of the left faint lower zone opacities 3. Stable prominent pulmonary interstitial markings. 4. Changes are likely related to congestion. 5. Port-A-Cath is again seen with its tip in the cavoatrial junction. Electronically signed by Raul Solis 06-17-2025 08:07 AM
--- NOTE | 2025-06-17 12:35 | Hospitalist Progress Note ---
Date of Service June 17, 2025 Assessment & Plan (1) Acute and chronic respiratory failure: Plan: Resolved. Now on room air. Monitor intake and output. Status post left-sided thoracentesis June 13 and right thoracentesis on June 15. Repeat portable chest x-ray done today, June 17, is unchanged (2) Malignant ascites: Plan: Known ovarian cancer with carcinomatosis. PleurX catheter in place in the abdominal wall for intermittent paracentesis. (3) Pleural effusion: Plan: Bilateral on admission. May be due to underlying congestive heart failure in addition to malignancy. Pulmonary medicine consultation and recommendations appreciated. She underwent left-sided thoracentesis June 13 with 1000 cc fluid removal. She underwent right sided thoracentesis on June 15. Parenteral Lasix switched to oral dosing on June 16. Chest x-ray done today, June 17, is unchanged (4) HTN (hypertension): Plan: Stable. Continue current medical management (5) Urinary tract infection: Plan: Streptococcus and Enterococcus isolated on admission. She has completed her course of intravenous ampicillin. (6) Acute diastolic CHF (congestive heart failure): Plan: Suspected on admission. Possible cause of bilateral pleural effusions which may not be entirely malignant. Continue Lasix diuresis. IV dosing switched to oral dosing on June 16. Cardiac echo reveals mild LVH with normal ejection fraction. Monitor intake and output. Serial chest x-ray. Plan Case management has petitioned her insurance for approval for discharge to [facility]. She is currently medically stable for discharge. Both OT and PT recommend rehab placement. Admission and Anticipated Discharge Date Admission Date: June 11, 2025 Subjective Stable overall. No new problems. Case management pursuing [facility] placement. If insurance denies, then she will need to go to SNF. Portable chest x-ray done today, June 17, is essentially unchanged. She remains on room air. Review of Systems 2 Review of Systems: Constitutionalno fever or chills ENTno blurred vision, no double vision, no epistaxis, no sore throat Respiratoryno cough, no wheezing, no shortness of breath at rest. She does have dyspnea on exertion Cardiacno palpitations, no chest pain, no syncope Keaton nausea, vomiting, diarrhea, melena, hematochezia GUno urinary retention, no urinary incontinence, no dysuria, no hematuria Musculoskeletalno joint pain, no muscle tenderness Skinno bruising, no rashes, no pruritus Neurono isolated weakness, no paresthesia, no weakness Psychno depression, no anxiety Physical Exam 2 Physical Exam: General-alert and oriented x3, no fever, no chills HEENT-head atraumatic and normocephalic, pupils equal and reactive to light, extraocular muscles intact Neck-no lymphadenopathy or thyromegaly, trachea midline Chest-diminished breath sounds and dullness at the right base. No rhonchi. Cardiac-regular rate and rhythm, normal S1 and S2 Abdomen-mildly distended. Normal bowel sounds, no palpable masses Extremities-no cyanosis, clubbing, or edema Neuro-cranial nerves II through XII intact, motor and sensory function within normal limits, strength symmetrical, no focal deficits Psych-normal affect, normal mood Results & Data Results & Data Vital Signs (Past 12 Hours) Vital Signs Temp Pulse Pulse Resp BP Pulse Ox O2 Del Method 06/17/25 10:58 36.8 C 104 H 16 110/63 92 Room Air 06/17/25 08:00 106 H 06/17/25 08:00 Room Air 06/17/25 07:37 36.5 C 106 H 20 115/74 91 Room Air 06/17/25 02:45 36.6 C 97 H 16 102/62 96 Room Air Laboratory Results 06/17/25 06:22 06/17/25 06:22 PG Care Time/CCT Total # of Minutes Spent Total Time Spent with Patient: Total time spent is greater than 50% in coordination of care (as documented) at patient's floor/unit and/or counseling patient: Coding Level of Care Code 05311 SUB INP/OBS CARE 2/35MIN Diagnoses Acute and chronic respiratory failure J96.20 Malignant ascites R18.0 Pleural effusion J90 Essential hypertension I10 Hypertension type: essential hypertension Urinary tract infection N39.0 Acute diastolic CHF (congestive heart failure) I50.31 (4) HTN (hypertension) Hypertension type: essential hypertension Qualified Code(s): I10 - Essential (primary) hypertension
[2025-06-18 05:51] LABS: Hematocrit (blood only) 26.7 % (37.0-47.0); Hemoglobin 8.5 g/dl (12.0-16.0); Immature Granulocytes # (auto) 0.08 K/uL (0.01-0.20); Immature Granulocytes % (auto) 0.9 %; Mean Corpuscular Hemoglobin 29.3 pg (25.0-34.0); Mean Corpuscular Volume 92.1 fL (80.0-100.0); Platelet Count 220 K/uL (130-400); RDW Standard Deviation 66.0 fL (36.4-46.3); Red Blood Count 2.90 M/uL (4.20-5.40); White Blood Count 9.13 K/ul (4.8-10.8)
[2025-06-18 06:04] LABS: Anion Gap 6.0 (3-11); Blood Urea Nitrogen 21.0 mg/dl (6-23); Calcium 8.7 mg/dl (8.6-10.3); Carbon Dioxide 34.0 mmol/L (21-32); Chloride 92.0 mmol/L (98-107); Creatinine Clr Calc Pharmacy 44.9 ml/min; Glucose 104.0 mg/dl (70-99(Fasting)); Potassium 4.6 mmol/L (3.5-5.1); Sodium 132.0 mmol/L (136-145)
--- NOTE | 2025-06-18 10:36 | Discharge Summary ---
Discharge Summary Date of Service June 18, 2025 Principal Dx & Hospital Course #1 = Principal Diagnosis (1) Acute and chronic respiratory failure: Resolved. Now on room air. Monitor intake and output. Status post left-sided thoracentesis June 13 and right thoracentesis on June 15. (2) Malignant ascites: Known ovarian cancer with carcinomatosis. PleurX catheter in place in the abdominal wall for intermittent paracentesis. (3) Pleural effusion: Bilateral on admission. May be due to underlying congestive heart failure in addition to malignancy. Pulmonary medicine consultation and recommendations appreciated. She underwent left-sided thoracentesis June 13 with 1000 cc fluid removal. She underwent right sided thoracentesis on June 15. Parenteral Lasix switched to twice daily oral dosing on June 16. Chest x- ray done on June 17 is unchanged (4) HTN (hypertension): Stable. Continue current medical management (5) Urinary tract infection: Streptococcus and Enterococcus isolated on admission. She has completed her course of intravenous ampicillin. (6) Acute diastolic CHF (congestive heart failure): Suspected on admission. Possible cause of bilateral pleural effusions which may not be entirely malignant. Continue Lasix diuresis. IV dosing switched to twice daily oral dosing on June 16. Cardiac echo reveals mild LVH with normal ejection fraction. Monitor intake and output. Serial chest x-ray. Plan Insurance denied IPR placement. She flatly refuses to consider SNF placement. She will be discharged home today, June 18, with home health services. Admission HPI Per Admitting Provider Simran is an 84-year-old female with a history of GI bleed and iron deficiency anemia, metastatic ovarian cancer with ascites on Doxil q. 28 days, and DVT/PE on Lovenox who was seen at PCPs office and was found to be weak with progressive dyspnea and was referred to the ER for further evaluation. Assessment in the ER CTA shows no PE, significant increasxe in large bilateral pleural effusions left larger than right with compressive atelectasis, body wall edema suggestive of anasarca. Troponin is normal, BMP 117. She does not have a leukocytosis. Last echo is with EF 60 to 65%, elevated RVSP, no regional wall motion abnormalities. D/w Pulm by ER --> has been on eliquis which is held. Would benefit from thorocentesis, but currently limited by eliquis Per patient: Simran is seen at the bedside. She reports that she has had progressive shortness of breath over the last few days, and probably a few weeks. She endorses ortho pnea/shortness of breath laying flat. She denies any chest pain or chest pressure, but notes she is more short of breath on exertion and notes some shortness of breath at rest today. She saw her PCP concerned her shortness of breath might be due to a cold, she was found to be hypoxic and was referred to the ER. She denies fever, chills, sweats. She has had a dry cough and small amount of clear sputum production, denies significant sputum production. Again endorses orthopnea worse in the last few days. She has history of urinary incontinence and is not sure if she has more frequency or not lately but denies dysuria. She was switched from Lovenox treatment for past PE/DVT toEliquis around 3 weeks ago. She switched as she had a lot of bruising on her abdomen due to the Lovenox. She took her Eliquis in the morning of 06/11/2025. She reports she has a PleurX for drainage of ascitic fluid, although notes that she did not have much fluid that drained last time. 2 weeks ago had around 2 L of fluid removed. She has had a significant increase increase in lower extremity swelling and was worried this could be due to blood clots versus fluid. She reports she has been taking Lasix 20 mg daily. Baseline weight is around 150 pounds. She has been undergoing doxorubicin treatment. She restarted Doxil q. 28-day treatment on 05/21/2025. Given is palliative in nature, she currently also follows with palliative care. She is aware of hospice and hospice benefits and anticipates transitioning to this when ready, but has not yet felt ready for this. No tobacco/alcohol use Allergies, medical history, surgical history reviewed Confirms DNR/DNI status at the bedside Discharge Exam General-alert and oriented x3, no fever, no chills HEENT-head atraumatic and normocephalic, pupils equal and reactive to light, extraocular muscles intact Neck-no lymphadenopathy or thyromegaly, trachea midline Chest-diminished breath sounds and dullness at the right base. No rhonchi. Cardiac-regular rate and rhythm, normal S1 and S2 Abdomen-mildly distended. Normal bowel sounds, no palpable masses Extremities-no cyanosis, clubbing, or edema Neuro-cranial nerves II through XII intact, motor and sensory function within normal limits, strength symmetrical, no focal deficits Psych-normal affect, normal mood Discharge Plan Discharge Items Patient Disposition: Home - Home Health Services Reason For Visit: METS OVARIAN CANCER, AHRF W/ LARGE B/L PLEURAL EFF Discharge Diagnosis: Acute hypoxic respiratory failure. Suspected acute diastolic congestive heart failure with bilateral pleural effusions, enterococcal and streptococcal UTI Condition on Discharge: Fair Activity: Resume your previous activity Non-emergency contact: Primary Care Provider and Oncologist Call non-emergency contact if: you have any medication questions and your symptoms worsen Follow-up/Referrals: Whit Farley MD [Primary Care Provider] - Diet: Regular Addtl Attending Provider Instructions: Take Lasix twice daily to hopefully prevent further fluid buildup in the lungs. Take potassium once daily to prevent low potassium levels. Eliquis replaces Lovenox. Prescriptions have been sent to your pharmacy. Use a walker when ambulating to prevent falling down Pending Studies at Discharge: No Stand-Alone Forms: My [facility] [employer], Smoking Cessation Medications and DC Order Prescriptions: New furosemide 40 mg Tablet 40 mg PO BID17 Qty: 60 0RF potassium chloride 20 mEq Tablet,Er Particles/Crystals 20 meq PO DAILY Qty: 30 0RF magnesium oxide 400 mg (241.3 mg magnesium) Tablet 400 mg PO BID Qty: 60 0RF Eliquis 2.5 mg Tablet 2.5 mg PO BID Qty: 60 0RF Continued levothyroxine [Synthroid] 150 mcg tablet 150 mcg PO DAILYBB Qty: 30 5RF acetaminophen 650 mg tablet extended release 1,300 mg PO BID gabapentin [Neurontin] 100 mg capsule 200 mg PO BID polyethylene glycol 3350 [Miralax] 17 gram powder in packet 8.5 g PO DAILY doxorubicin, peg-liposomal [Doxil] 2 mg/mL Suspension 2 mg IV .[id number] Rx Instructions: LAST GIVEN ON 03/19/25. Caregiver unsure of strength at this date/time. ondansetron HCl 8 mg tablet 8 mg PO Q8H PRN (Reason: Nausea And Vomiting) prochlorperazine maleate 10 mg tablet 10 mg PO Q6H PRN (Reason: Nausea And Vomiting) ascorbate calcium (vitamin C) 500 mg Tablet 1,000 mg PO DAILY pyridoxine (vitamin B6) [Vitamin B-6] 100 mg Tablet 100 mg PO DAILY pantoprazole 40 mg Tablet,Delayed Release (Dr/Ec) 40 mg PO DAILY Qty: 30 0RF sennosides-docusate sodium [Senokot-S] 8.6-50 mg tablet 1 - 2 tab-cap PO BID PRN (Reason: constipation) Qty: 60 2RF tramadol 50 mg tablet 50 mg PO Q6H PRN (Reason: Pain) Discontinued enoxaparin [Lovenox] 40 mg/0.4 mL syringe 40 mg subcut Q12H furosemide [Lasix] 40 mg tablet 40 mg PO DAILY Qty: 30 3RF Discharge Orders: Discharge Order (Routine); Ordered 06/18/25 Ordered By: Robert Joe Admission Data Admit Date/Time: 06/11/25 14:20 Attending Provider: Robert Joe Admit Provider: Goran Kang Primary Care Provider: Whit Farley Other Providers: Taj Estrella; [facility]; [facility] Hospital Stay Data Consultations 06/11/25 14:20 Consult Pulmonology Routine Diagnostic Imagining Performed 06/11/25 11:57 CT angio chest PE protocol Stat 06/11/25 14:00 US point of care ultrasound Urgent 06/11/25 16:51 US point of care ultrasound Urgent 06/13/25 15:23 US point of care ultrasound Urgent 06/15/25 11:14 IR thoracentesis wo tube US Routine Pending Results Patient Have Any Pending Studies at Discharge: No Discharge Instructions Given to Patient (Per Discharging Provider) Take Lasix twice daily to hopefully prevent further fluid buildup in the lungs. Take potassium once daily to prevent low potassium levels. Eliquis replaces Lovenox. Prescriptions have been sent to your pharmacy. Use a walker when ambulating to prevent falling down Total Time Total Time Spent Total Time Spent (In Minutes): 45-minutes Coding Level of Care Code 09772 INP/OBS DISCH >30 MIN Diagnoses Acute and chronic respiratory failure J96.20 Malignant ascites R18.0 Pleural effusion J90 Essential hypertension I10 Hypertension type: essential hypertension Urinary tract infection N39.0 Acute diastolic CHF (congestive heart failure) I50.31
--- NOTE | 2025-06-18 12:11 | Hospitalist Progress Note ---
Date of Service June 18, 2025 Assessment & Plan (1) Acute and chronic respiratory failure: Plan: Resolved. Now on room air. Monitor intake and output. Status post left-sided thoracentesis June 13 and right thoracentesis on June 15. (2) Malignant ascites: Plan: Known ovarian cancer with carcinomatosis. PleurX catheter in place in the abdominal wall for intermittent paracentesis. (3) Pleural effusion: Plan: Bilateral on admission. May be due to underlying congestive heart failure in addition to malignancy. Pulmonary medicine consultation and recommendations appreciated. She underwent left-sided thoracentesis June 13 with 1000 cc fluid removal. She underwent right sided thoracentesis on June 15. Parenteral Lasix switched to twice daily oral dosing on June 16. Chest x- ray done on June 17 is unchanged (4) HTN (hypertension): Plan: Stable. Continue current medical management (5) Urinary tract infection: Plan: Streptococcus and Enterococcus isolated on admission. She has completed her course of intravenous ampicillin. (6) Acute diastolic CHF (congestive heart failure): Plan: Suspected on admission. Possible cause of bilateral pleural effusions which may not be entirely malignant. Continue Lasix diuresis. IV dosing switched to twice daily oral dosing on June 16. Cardiac echo reveals mild LVH with normal ejection fraction. Monitor intake and output. Serial chest x-ray. Plan Insurance denied IPR placement. She still needs quite a bit of assistance and now agrees to pursue SNF placement. Case management aware. Admission and Anticipated Discharge Date Admission Date: June 11, 2025 Subjective Unfortunately her insurance denied IPR placement. She still needs quite a bit of assistance to get around and has finally agreed to go to an SNF. Anticipated discharge to home with home health services has been canceled and case management is now pursuing SNF placement. Review of Systems 2 Review of Systems: Constitutionalno fever or chills ENTno blurred vision, no double vision, no epistaxis, no sore throat Respiratoryno cough, no wheezing, no shortness of breath at rest. She does have dyspnea on exertion Cardiacno palpitations, no chest pain, no syncope Keaton nausea, vomiting, diarrhea, melena, hematochezia GUno urinary retention, no urinary incontinence, no dysuria, no hematuria Musculoskeletalno joint pain, no muscle tenderness Skinno bruising, no rashes, no pruritus Neurono isolated weakness, no paresthesia, no weakness Psychno depression, no anxiety Physical Exam 2 Physical Exam: General-alert and oriented x3, no fever, no chills HEENT-head atraumatic and normocephalic, pupils equal and reactive to light, extraocular muscles intact Neck-no lymphadenopathy or thyromegaly, trachea midline Chest-diminished breath sounds and dullness at the right base. No rhonchi. Cardiac-regular rate and rhythm, normal S1 and S2 Abdomen-mildly distended. Normal bowel sounds, no palpable masses Extremities-no cyanosis, clubbing, or edema Neuro-cranial nerves II through XII intact, motor and sensory function within normal limits, strength symmetrical, no focal deficits Psych-normal affect, normal mood Results & Data Results & Data Vital Signs (Past 12 Hours) Vital Signs Temp Pulse Pulse Resp BP BP Pulse Ox 06/18/25 10:37 36.8 C 111 H 18 110/65 107/71 92 06/18/25 07:49 06/18/25 07:37 36.8 C 111 H 18 110/65 92 06/18/25 07:33 107 H 06/18/25 02:42 36.6 C 117 H 16 105/62 94 O2 Del Method 06/18/25 10:37 06/18/25 07:49 Room Air 06/18/25 07:37 Room Air 06/18/25 07:33 06/18/25 02:42 Room Air Laboratory Results 06/18/25 05:28 06/18/25 05:28 PG Care Time/CCT Total # of Minutes Spent Total Time Spent with Patient: Total time spent is greater than 50% in coordination of care (as documented) at patient's floor/unit and/or counseling patient: Coding Level of Care Code 61533 SUB INP/OBS CARE 2/35MIN Diagnoses Acute and chronic respiratory failure J96.20 Malignant ascites R18.0 Pleural effusion J90 Essential hypertension I10 Hypertension type: essential hypertension Urinary tract infection N39.0 Acute diastolic CHF (congestive heart failure) I50.31 (4) HTN (hypertension) Hypertension type: essential hypertension Qualified Code(s): I10 - Essential (primary) hypertension
[2025-06-19 07:50] LABS: Hematocrit (blood only) 28.5 % (37.0-47.0); Hemoglobin 8.8 g/dl (12.0-16.0); Immature Granulocytes # (auto) 0.09 K/uL (0.01-0.20); Immature Granulocytes % (auto) 0.8 %; Mean Corpuscular Hemoglobin 28.7 pg (25.0-34.0); Mean Corpuscular Volume 92.8 fL (80.0-100.0); Platelet Count 223 K/uL (130-400); RDW Standard Deviation 67.8 fL (36.4-46.3); Red Blood Count 3.07 M/uL (4.20-5.40); White Blood Count 10.83 K/ul (4.8-10.8)
[2025-06-19 08:03] LABS: Anion Gap 4.0 (3-11); Blood Urea Nitrogen 20.0 mg/dl (6-23); Calcium 8.9 mg/dl (8.6-10.3); Carbon Dioxide 38.0 mmol/L (21-32); Chloride 90.0 mmol/L (98-107); Creatinine Clr Calc Pharmacy 40.7 ml/min; Glucose 100.0 mg/dl (70-99(Fasting)); Potassium 4.4 mmol/L (3.5-5.1); Sodium 132.0 mmol/L (136-145)
[2025-06-19 08:08] LABS: Anisocytosis Present; Polychromasia 1+
--- NOTE | 2025-06-19 12:52 | Hospitalist Progress Note ---
Date of Service June 19, 2025 Assessment & Plan (1) Acute and chronic respiratory failure: Plan: Resolved. Now on room air. Monitor intake and output. Status post left-sided thoracentesis June 13 and right thoracentesis on June 15. (2) Malignant ascites: Plan: Known ovarian cancer with carcinomatosis. PleurX catheter in place in the abdominal wall for intermittent paracentesis. (3) Pleural effusion: Plan: Bilateral on admission. May be due to underlying congestive heart failure in addition to malignancy. Pulmonary medicine consultation and recommendations appreciated. She underwent left-sided thoracentesis June 13 with 1000 cc fluid removal. She underwent right sided thoracentesis on June 15. Parenteral Lasix switched to twice daily oral dosing on June 16. Chest x- ray done on June 17 is unchanged (4) HTN (hypertension): Plan: Stable. Continue current medical management (5) Urinary tract infection: Plan: Streptococcus and Enterococcus isolated on admission. She has completed her course of intravenous ampicillin. (6) Acute diastolic CHF (congestive heart failure): Plan: Suspected on admission. Possible cause of bilateral pleural effusions which may not be entirely malignant. Continue Lasix diuresis. IV dosing switched to twice daily oral dosing on June 16. Cardiac echo reveals mild LVH with normal ejection fraction. Monitor intake and output. Serial chest x-ray. Plan Insurance denied IPR placement. She still needs quite a bit of assistance and now agrees to SNF placement which is pending. Admission and Anticipated Discharge Date Admission Date: June 11, 2025 Subjective Stable overall. SNF placement is pending. She is complaining of right hand pain but there are no significant physical findings. Tramadol as needed ordered. Review of Systems 2 Review of Systems: Constitutionalno fever or chills ENTno blurred vision, no double vision, no epistaxis, no sore throat Respiratoryno cough, no wheezing, no shortness of breath at rest. She does have dyspnea on exertion Cardiacno palpitations, no chest pain, no syncope Keaton nausea, vomiting, diarrhea, melena, hematochezia GUno urinary retention, no urinary incontinence, no dysuria, no hematuria Musculoskeletalno joint pain, no muscle tenderness. She is complaining of right hand discomfort but there are no significant physical findings Skinno bruising, no rashes, no pruritus Neurono isolated weakness, no paresthesia, no weakness Psychno depression, no anxiety Physical Exam 2 Physical Exam: General-alert and oriented x3, no fever, no chills HEENT-head atraumatic and normocephalic, pupils equal and reactive to light, extraocular muscles intact Neck-no lymphadenopathy or thyromegaly, trachea midline Chest-diminished breath sounds and dullness at the right base. No rhonchi. Cardiac-regular rate and rhythm, normal S1 and S2 Abdomen-mildly distended. Normal bowel sounds, no palpable masses Extremities-no cyanosis, clubbing, or edema Neuro-cranial nerves II through XII intact, motor and sensory function within normal limits, strength symmetrical, no focal deficits Psych-normal affect, normal mood Results & Data Results & Data Vital Signs (Past 12 Hours) Vital Signs Temp Pulse Pulse Resp BP Pulse Ox O2 Del Method 06/19/25 11:24 37.1 C 100 H 14 102/67 97 Room Air 06/19/25 08:04 36.6 C 118 H 16 101/64 97 Room Air 06/19/25 07:30 101 H 06/19/25 02:12 36.4 C L 109 H 18 103/66 92 Nasal Cannula O2 Flow Rate 06/19/25 11:24 06/19/25 08:04 06/19/25 07:30 06/19/25 02:12 2 Laboratory Results 06/19/25 07:20 06/19/25 07:20 PG Care Time/CCT Total # of Minutes Spent Total Time Spent with Patient: Total time spent is greater than 50% in coordination of care (as documented) at patient's floor/unit and/or counseling patient: Coding Level of Care Code 62626 SUB INP/OBS CARE 2/35MIN Diagnoses Acute and chronic respiratory failure J96.20 Malignant ascites R18.0 Pleural effusion J90 Essential hypertension I10 Hypertension type: essential hypertension Urinary tract infection N39.0 Acute diastolic CHF (congestive heart failure) I50.31 (4) HTN (hypertension) Hypertension type: essential hypertension Qualified Code(s): I10 - Essential (primary) hypertension
[2025-06-20] MEDS: MoRPHine SULFATE 2 MG/ML CARP IV STA (08:17)
[2025-06-20] MEDS: HEPARIN 100 UNIT/ML 5ML FLUSH FLUSH PRN (08:17)
--- NOTE | 2025-06-20 09:06 | XRay Report ---
XR hand RT min 3V routine CLINICAL HISTORY: Right hand pain. COMPARISON: Right hand radiographs August 31, 2013. FINDINGS: No acute fractures within the right hand are identified. Carpal bones are intact. There is severe joint space narrowing with extensive osteophytosis within multiple articulations of the right hand and wrist, including the first carpometacarpal joint and the second through fifth DIP joints. T here is moderate joint space narrowing and osteophytosis within the PIP joints and several metacarpop halangeal joints. Degenerative changes have moderately progressed since radiographs of August 31 013. There is chondrocalcinosis within the TFCC. Several soft tissue calcifications are present. IMPRESSION: 1. No acute fractures within the right hand. 2. 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 Chondrocalcinosis within the TFCC. ACT 112: Negative or not required by law. Electronically signed by: González Huggins M.D. 06/20/2025 9:05 AM
--- NOTE | 2025-06-20 14:08 | Hospitalist Progress Note ---
Date of Service June 20, 2025 Assessment & Plan (1) Acute and chronic respiratory failure: Plan: She is currently on 2 L of oxygen per nasal cannula. Wean off as tolerated. Status post left-sided thoracentesis June 13 and right thoracentesis on June 15. (2) Malignant ascites: Plan: Known ovarian cancer with carcinomatosis. PleurX catheter in place in the abdominal wall for intermittent paracentesis. (3) Pleural effusion: Plan: Bilateral on admission. May be due to underlying congestive heart failure in addition to malignancy. Pulmonary medicine consultation and recommendations appreciated. She underwent left-sided thoracentesis June 13 with 1000 cc fluid removal. She underwent right sided thoracentesis on June 15. Parenteral Lasix switched to twice daily oral dosing on June 16. Chest x- ray done on June 17 is unchanged (4) HTN (hypertension): Plan: Stable. Continue current medical management (5) Urinary tract infection: Plan: Streptococcus and Enterococcus isolated on admission. She has completed her course of intravenous ampicillin. (6) Acute diastolic CHF (congestive heart failure): Plan: Suspected on admission. Possible cause of bilateral pleural effusions which may not be entirely malignant. Continue Lasix diuresis. IV dosing switched to twice daily oral dosing on June 16. Cardiac echo reveals mild LVH with normal ejection fraction. Monitor intake and output. Serial chest x-ray. (7) Right hand pain: Plan: No injury. No fracture seen on x-ray. This appears to be due to osteoarthritis. 1 dose of parenteral steroids administered today, June 20. Oxycodone as needed recurrent pain Plan Insurance denied IPR placement. She still needs quite a bit of assistance and now agrees to SNF placement which is pending. Admission and Anticipated Discharge Date Admission Date: June 11, 2025 Subjective Complaining of right hand pain without injury or swelling. X-ray negative for fracture although she does have evidence of osteoarthritis. 1 dose of Solu- Medrol ordered. Will use oxycodone as needed pain. She is currently on 2 L of oxygen. SNF placement pending. IPR was denied by insurance. Review of Systems 2 Review of Systems: Constitutionalno fever or chills ENTno blurred vision, no double vision, no epistaxis, no sore throat Respiratoryno cough, no wheezing, no shortness of breath at rest. She does have dyspnea on exertion Cardiacno palpitations, no chest pain, no syncope Keaton nausea, vomiting, diarrhea, melena, hematochezia GUno urinary retention, no urinary incontinence, no dysuria, no hematuria Musculoskeletalno joint pain, no muscle tenderness. She is complaining of right hand discomfort but there are no significant physical findings except for osteoarthritis Skinno bruising, no rashes, no pruritus Neurono isolated weakness, no paresthesia, no weakness Psychno depression, no anxiety Physical Exam 2 Physical Exam: General-alert and oriented x3, no fever, no chills HEENT-head atraumatic and normocephalic, pupils equal and reactive to light, extraocular muscles intact Neck-no lymphadenopathy or thyromegaly, trachea midline Chest-diminished breath sounds and dullness at the right base. No rhonchi. Cardiac-regular rate and rhythm, normal S1 and S2 Abdomen-mildly distended. Normal bowel sounds, no palpable masses Extremities-no cyanosis, clubbing, or edema. Osteoarthritis changes bilateral hands Neuro-cranial nerves II through XII intact, motor and sensory function within normal limits, strength symmetrical, no focal deficits Psych-normal affect, normal mood Results & Data Results & Data Vital Signs (Past 12 Hours) Vital Signs Temp Pulse Pulse Resp BP BP Pulse Ox 06/20/25 13:40 96 H 06/20/25 11:39 36.2 C L 116 H 16 106/65 95 06/20/25 07:40 36.3 C L 104 H 20 122/68 96 06/20/25 07:20 06/20/25 07:18 100 H 06/20/25 02:46 36.8 C 106 H 14 103/60 95 O2 Del Method O2 Flow Rate 06/20/25 13:40 06/20/25 11:39 Nasal Cannula 2 06/20/25 07:40 Nasal Cannula 2 06/20/25 07:20 Nasal Cannula 2 06/20/25 07:18 06/20/25 02:46 Nasal Cannula 2 Laboratory Results 06/19/25 07:20 06/19/25 07:20 PG Care Time/CCT Total # of Minutes Spent Total Time Spent with Patient: Total time spent is greater than 50% in coordination of care (as documented) at patient's floor/unit and/or counseling patient: Coding Level of Care Code 74509 SUB INP/OBS CARE 3/50MIN Diagnoses Acute and chronic respiratory failure J96.20 Malignant ascites R18.0 Pleural effusion J90 Essential hypertension I10 Hypertension type: essential hypertension Urinary tract infection N39.0 Acute diastolic CHF (congestive heart failure) I50.31 Right hand pain M79.641 (4) HTN (hypertension) Hypertension type: essential hypertension Qualified Code(s): I10 - Essential (primary) hypertension
--- NOTE | 2025-06-21 11:04 | Palliative Care Consultation ---
Date of Consultation June 21, 2025 Assessment & Plan (1) Palliative care by specialist: Met with pt at bedside. No visitors present. Introduced Palliative Medicine and explained our role in advanced care planning, symptom management and navigation through the progression of life limiting disease. Patient and/or family were receptive to palliative services for goals of care discussions. Reviewed we are different from hospice, a home health nurse visiting service. (2) Counseling regarding advanced directives and goals of care: Met with pt at bedside, no visitors present. we discussed ACP and goals of care for 42 minutes. Pt is and retired from the [employer] where she worked in [employer] for many years. She shared that until recently she lived independently in her own home with two horses and several other pets. SHe has a friend who is staying at her home to care for animals while she is admitted. Pt verbalized understanding of her PMHx, HPI, admission course and treatment options. Pt states that her daughter Anna is making plans for discharge. She reported desire to be discharged to SNF for PT/OT to optimize her strength and functional independence with hope that she may be able to return to living independently in her own residence. She shared frustration that she may have gotten much weaker during hospitalization and she is hopeful to be able to regain strength enough to not need to stay in SNF. She is clear in her goals for dc to [facility] for PT to optimize strength/independence /mobility then transition to hospice. She is hoping to return home, but realizes this will depend on how things go at [facility]. if her health worsens she would want to focus on comfort and not return to hospital Plan as above History of Present Illness Reason for Consultation: goals of care Requesting Physician: Elvira Delgadillo MD Attending Physician: Elvira Delgadillo MD History of Present Illness Simran is an 84-year-old female with a history of GI bleed and iron deficiency anemia, metastatic ovarian cancer with ascites on Doxil q. 28 days, and DVT/PE on Lovenox who was seen at PCPs office and was found to be weak with progressive dyspnea and was referred to the ER for further evaluation. Assessment in the ER CTA showed no PE, significant increase in large bilateral pleural effusions left larger than right with compressive atelectasis, body wall edema suggestive of anasarca. She has a Pleurex catheter in place. Troponin is normal, BMP 117. She does not have a leukocytosis. Last echo is with EF 60 to 65%, elevated RVSP, no regional wall motion abnormalities. Allergies Allergy/AdvReac Type Severity Reaction Status Date / Time piperacillin Allergy Intermediate hives Verified 06/11/25 09:37 tazobactam Allergy Intermediate hives Verified 06/11/25 09:37 oxaprozin AdvReac Intermediate FEET Verified 06/11/25 09:37 SWELLING, SKIN PEELING Home Medications Medication Instructions Recorded Confirmed Type acetaminophen 650 mg 1,300 mg PO BID aches and pains 03/13/23 06/11/25 History tablet,extended release gabapentin 100 mg capsule 200 mg PO BID neuropathy 03/13/23 06/11/25 History (Neurontin) ascorbate calcium (vitamin C) 500 1,000 mg PO DAILY 02/24/25 06/11/25 History mg tablet doxorubicin, peg-liposomal 2 mg/mL 2 mg IV .[id number] 02/24/25 06/11/25 History intravenous suspension (Doxil) ondansetron HCl 8 mg tablet 8 mg PO Q8H PRN Nausea And Vomiting 02/24/25 06/11/25 History prochlorperazine maleate 10 mg 10 mg PO Q6H PRN Nausea And 02/24/25 06/11/25 History tablet Vomiting pyridoxine (vitamin B6) 100 mg 100 mg PO DAILY 02/24/25 06/11/25 History tablet (Vitamin B-6) pantoprazole 40 mg tablet,delayed 40 mg PO DAILY #30 tabs 03/01/25 06/11/25 Rx release sennosides 8.6 mg-docusate sodium 1 - 2 tab-cap (1 - 2 x 8.6-50 mg) 03/23/25 06/11/25 Rx 50 mg tablet (Senokot-S) PO BID PRN constipation #60 tabs polyethylene glycol 3350 17 gram 8.5 g PO DAILY 04/20/25 06/11/25 History oral powder packet (Miralax) levothyroxine 150 mcg tablet 150 mcg PO DAILYBB #30 tabs 05/19/25 06/11/25 Rx (Synthroid) tramadol 50 mg tablet 50 mg PO Q6H PRN Pain 06/11/25 06/11/25 History apixaban 2.5 mg tablet (Eliquis) 2.5 mg PO BID #60 tabs 06/18/25 Rx furosemide 40 mg tablet 40 mg PO BID17 #60 tabs 06/18/25 Rx magnesium oxide 400 mg (241.3 mg 400 mg PO BID #60 tabs 06/18/25 Rx magnesium) tablet potassium chloride 20 mEq 20 meq PO DAILY #30 tabs 06/18/25 Rx tablet,extended release(part/cryst) Patient History Medical History Stress incontinence Microscopic hematuria 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 Obstipation Acute deep vein thrombosis (DVT) Bacteremia due to Staphylococcus Hypoalbuminemia Acute pulmonary edema Pancytopenia UTI (urinary tract infection) Port-A-Cath in place High blood pressure Thyroid disease Ovarian cancer Overactive bladder History of DVT (deep vein thrombosis) History of pulmonary embolism History of acute renal failure Peripheral neuropathy Hiatal hernia Hx: UTI (urinary tract infection) Surgical History Encounter for pleural drainage tube placement (03/09/25) History of total right knee replacement History of vascular access device S/P insertion of IVC (inferior vena caval) filter History of colonoscopy H/O arthroscopic knee surgery History of left knee replacement H/O abdominal hysterectomy (~2016) History of back surgery (~2015) Family History Other No family history of adverse response to anesthesia Social History Smoking Status: Never smoker Second Hand Exposure: No; Do You Dip or Chew Tobacco: No; Hx Alcohol Use: No Hx Substance Use: No Preferred Language: Japanese Communication Ability: Effective Hospice Social Worker Required: No Beliefs That Will Affect Care: None marital status: Current Living Situation: Alone current occupational status: retired How many Children do You have: 2 Feels Safe at Home: Yes Assistive Devices: Cane, Walker, Wheelchair and Other Review of Systems Review of Systems: All systems reviewed & are unremarkable except as noted in HPI & below Physical Exam Constitutional: WD/WN, vitals as above Eyes: PERRL, conjunctivae normal, anicteric sclerae Respiratory: normal respiratory effort, lungs clear to auscultation Cardiovascular: RRR, no murmur, no edema Gastrointestinal (Abdomen): normal bowel sounds, soft, nontender, no hepatosplenomegaly Musculoskeletal: no cyanosis or clubbing, extremities motor strength 5/5 Skin: no rashes, warm and dry Psychiatric: A+Ox3, euthymic affect Results & Data Vital Signs (Past 12 Hours) Vital Signs Temp Pulse Pulse Resp BP Pulse Ox O2 Del Method 06/21/25 07: 79 06/21/25 07:25 Nasal Cannula 06/21/25 07:05 36.2 C L 75 16 115/65 96 Nasal Cannula 06/21/25 04:00 36.6 C 73 17 102/78 94 Room Air 06/20/25 23:00 36.4 C L 81 18 122/66 95 Room Air O2 Flow Rate 06/21/25 07:25 06/21/25 07:25 2 06/21/25 07:05 2.0 06/21/25 04:00 06/20/25 23:00 Diagnostic Findings Chest CTA 06/11/25 11:57 CT ANGIOGRAM OF THE CHEST CLINICAL HISTORY: Shortness of breath. History of pulmonary emboli. Ovarian cancer. COMPARISON STUDY: Chest radiograph performed earlier today. Chest CT March 04, 2025. TECHNIQUE: Following the IV administration of 62 cc of Optiray 320, CT angiogram of the chest was performed from the upper abdomen to the thoracic inlet utilizing the pulmonary embolus protocol. Images are reviewed in the axial, sagittal, and coronal planes. 3-D MIPS images are created and assessed. IV contrast was administered without complication. A dose lowering technique was utilized adhering to the principles of ALARA. CT DOSE: 585.54 mGy.cm FINDINGS: The pulmonary emboli on CT of March 04, 2025 have resolved although subsegmental pulmonary arteries are suboptimally assessed on this exam due to respiratory motion. The saddle pulmonary embolus prior study is no longer p resent. There is no thoracic aortic dissection. The heart is mildly enlarged. There is no pericardial effusion. There is no pneumothorax. A large left pleural effusion has significantly increased in size since prior chest CT. A large right pleural effusion has developed. There is associated compressive left lower lobe atelectasis. There is segmental right lower lobe atelectasis as well as segmenta l left upper lobe atelectasis. There is no thoracic lymphadenopathy. Visualized portions of the upper abdomen demonstrate multiple hepatic metastases as well as omental and peritoneal implants. A small amount of upper abdominal ascites is noted. Body wall edema is present. Retrocrural lymphadenopathy is again noted. IMPRESSION: 1. No pulmonary emboli identified. Resolution of the pulmonary emboli on CT of March 04, 2025. 2. Significant increase in large bilateral pleural effusions, left larger than right. Associated compressive left lower lobe collapse and segmental left upper lobe and right lower lobe atelectasis. 3. Upper abdominal ascites, lymphadenopathy, peritoneal/omental implants and hepatic metastases. 4. Body wall edema suggestive of anasarca. ACT 112: Negative or not required by law. Electronically signed by: González Huggins M.D. 06/11/2025 12:59 PM Thoracentesis/Paracentesis US 06/15/25 11:14 ULTRASOUND-GUIDED RIGHT THORACENTESIS CLINICAL HISTORY: Large right pleural effusion PROCEDURE: Procedure and risks were explained. Informed consent was obtained. A final timeout was completed. The right posterior thorax was prepped and draped in sterile fashion. 1% lidocaine was utilized for skin anesthesia. Utilizing ultrasound guidance, a 5 Occitan safety centesis catheter was advanced into the right pleural effusion. Ultrasound images were obtained. A total of 1300 mL of pleural fluid was removed, with 1 L sent to lab for analysis. The catheter was removed and Band-Aid applied. The patient tolerated the procedure well. A chest x-ray will be obtained post procedure. Vital signs will be monitored postprocedure. IMPRESSION: Ultrasound-guided right thoracentesis as above. Performed, dictated, and signed by Jimmie Mccallum PA-C; to be co-signed by Dr. Oliver Schofield. Electronically signed by: Oliver Schofield M.D. 06/15/2025 2:48 PM Chest X-Ray 06/17/25 08:00 EXAM: XR chest 1V portable CLINICAL HISTORY: CHF, effusions TECHNIQUE: An X-ray image of the chest is obtained in AP projection. 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 FINDINGS: Pulmonary Parenchyma: Mild progression of the faint right lower zone opacities Stable appearance of the left faint lower zone opacities Stable prominent pulmonary interstitial markings. Stable mild bilateral pleural effusion Heart and Mediastinum: Heart size and shape are normal. No mediastinal widening or masses. No hilar or mediastinal lymphadenopathy. Port-A-Cath is again seen with its tip in the cavoatrial junction. Bony Thorax: Bony thorax appears intact without fractures or deformities. Soft Tissues: Soft tissues overlying the chest wall are unremarkable. IMPRESSION: 1. Mild progression of the faint right lower zone opacities 2. Stable appearance of the left faint lower zone opacities 3. Stable prominent pulmonary interstitial markings. 4. Changes are likely related to congestion. 5. Port-A-Cath is again seen with its tip in the cavoatrial junction. Electronically signed by Raul Solis 06-17-2025 08:07 AM Hand X-Ray 06/20/25 08:01 XR hand RT min 3V routine CLINICAL HISTORY: Right hand pain. COMPARISON: Right hand radiographs August 31, 2013. FINDINGS: No acute fractures within the right hand are identified. Carpal bones are intact. There is severe joint space narrowing with extensive osteophytosis within multiple articulations of the right hand and wrist, including the first carpometacarpal joint and the second through fifth DIP joints. There is moderate joint space narrowing and osteophytosis within the PIP joints and several metacarpophalangeal joints. Degenerative changes have moderately progressed since radiographs of August 31, 2013. There is chondrocalcinosis within the TFCC. Several soft tissue calcifications are present. IMPRESSION: 1. No acute fractures within the right hand. 2. 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 Chondrocalcinosis within the TFCC. ACT 112: Negative or not required by law. Electronically signed by: González Huggins M.D. 06/20/2025 9:05 AM Medications Administered Current Inpatient Medications Apixaban (Apixaban 2.5 Mg Tab) 2.5 mg PO BID ERIC Stop: 07/15/25 20:59 Last Admin: 06/21/25 08:35 Dose: 2.5 mg Furosemide (Furosemide 40 Mg Tab) 40 mg PO BID17 ERIC Stop: 07/16/25 16:59 Last Admin: 06/21/25 08:35 Dose: 40 mg Gabapentin (Gabapentin 100 Mg Cap) 200 mg PO BID ERIC Stop: 07/11/25 20:59 Last Admin: 06/21/25 08:35 Dose: 200 mg Heparin Sodium (Porcine) (Heparin 100 Unit/Ml 5ml Flush) 5 ml FLUSH PRN PRN PRN Reason: Flush Stop: 07/19/25 08:35 Last Admin: 06/20/25 08:17 Dose: 5 ml Levothyroxine Sodium (Levothyroxine Sodium 150 Mcg Tablet) 150 mcg PO DAILYBB [facility] Stop: 07/12/25 06:29 Last Admin: 06/21/25 06:26 Dose: 150 mcg Magnesium Oxide (Magnesium Oxide 400 Mg Tab) 400 mg PO BID ERIC Stop: 07/12/25 11:44 Last Admin: 06/21/25 08:35 Dose: 400 mg Oxycodone HCl (Oxycodone Hcl Ir 5 Mg Tab (Immediate Release)) 5 mg PO Q6H PRN PRN Reason: Pain Stop: 07/04/25 08:36 Pantoprazole Sodium (Pantoprazole 40 Mg Tab) 40 mg PO DAILY [facility] Stop: 07/12/25 08:59 Last Admin: 06/21/25 08:35 Dose: 40 mg Polyethylene Glycol (Polyethylene (Miralax) 17 Gm Pack) 8.5 gm PO DAILY ERIC Stop: 07/12/25 08:59 Last Admin: 06/21/25 08:35 Dose: 8.5 gm Potassium Chloride (Potassium Chloride Crtab 20 Meq Tabcr) 20 meq PO BID [facility] Stop: 07/13/25 09:59 Last Admin: 06/21/25 08:35 Dose: 20 meq Prochlorperazine (Prochlorperazine Maleate 10 Mg Tab) 10 mg PO Q6H PRN PRN Reason: Nausea And Vomiting Stop: 07/11/25 16:18 Pyridoxine HCl (Pyridoxine Hcl 50 Mg Tab) 100 mg PO DAILY ERIC Stop: 07/12/25 08:59 Last Admin: 06/21/25 08:35 Dose: 100 mg Senna/Docusate Sodium (Docusate Sodium/Senna 50/8.6mg Tab) 1 tab PO BID PRN PRN Reason: constipation Stop: 07/11/25 16:18 Tramadol HCl (Tramadol Hcl 50 Mg Tablet) 50 mg PO Q6H PRN PRN Reason: Pain Stop: 07/11/25 16:18 Last Admin: 06/20/25 20:07 Dose: 50 mg PG Care Time/CCT Total # of Minutes Spent Total Time Spent with Patient: Total time spent is greater than 50% in coordination of care (as documented) at patient's floor/unit and/or counseling patient: Advanced Care Planning 13117 Advanced Care Planning 30 [place] [address] IN/OBS CONSULT LVL 4,60M Patient Type New History Expanded Problem Focused Exam Expanded Problem Focused Medical Decision Making Moderate Complexity Diagnoses Palliative care by specialist Z51.5 Counseling regarding advanced directives and goals of care Z71.89 Additional Codes Advanced Care Planning - 37939 Advanced Care Planning 30 Min: 04698 Advanced Care Planning 30 Min ([id number])
--- NOTE | 2025-06-21 12:17 | Hospitalist Progress Note ---
"Date of Service June 21, 2025 Assessment & Plan (1) Acute and chronic respiratory failure: (2) Malignant ascites: (3) Pleural effusion: (4) Urinary tract infection: (5) Acute diastolic CHF (congestive heart failure): (6) Right hand pain: Plan Simran is an 84-year-old female with a history of GI bleed and iron deficiency anemia, metastatic ovarian cancer with ascites on Doxil q. 28 days, and DVT/PE (on Eliquis) who presented with progressive dyspnea and weakness. Found to have significant effusions on CTA, no PE. #Acute and chronic respiratory failure | Pleural Effusion - Secondary to volume overload, pleural effusions pulmonary consulted - Status post 2 thoracentesis this admission. Continue diuresis, switched to PO lasix 40mg BID on 06/16 Wean oxygen as tolerated goal greater than 90% palliative care consultedpatient clear with her goals of care would like to go to [facility] to try to get stronger and then will consider hospice at that time #malignant Ascites Known ovarian cancer with carcinomatosis. PleurX catheter in place in the abdominal wall for intermittent paracentesis. #UTI - resolved, completed course of ampicillin #CHF - likely contributing to effusions ECHO: EF 55-60, mild LVH borderline pulmonary hypertension Continue diuresis as above #Hand pain No injury. No fracture seen on x-ray. This appears to be due to osteoarthritis. 1 dose of parenteral steroids 06/20 with improvement in pain dispo: Continued inpatient stay awaiting safe discharge dispo. DVT prophylaxis: Home Ale[facility] case discussed with palliative and case management Admission and Anticipated Discharge Date Admission Date: June 11, 2025 Subjective Patient seen sitting up in bed. Reports feeling better. Movement of hand is much better was able to feed herself breakfast. Is on 2 L nasal cannula and is normally on room air at home. Family present at bedside. Telemetry sinus rhythm 70s Review of Systems Review of Systems: All systems reviewed & are unremarkable except as noted in Subjective Physical Exam Physical Exam: General: NAD, VS as above Resp: normal respiratory effort,On 2 L, diminished in the bases, worse on the right. CV: RRR, no murmur, Abd: normal bowel sounds, non tender, Distended Extremities: Moves all extremities, arthritic changes to the hands. Neuro: A&O x3, Results & Data Results & Data Vital Signs (Past 12 Hours) Vital Signs Temp Pulse Pulse Resp BP Pulse Ox O2 Del Method 06/21/25 11:34 97.0 F L 83 16 131/74 95 Nasal Cannula 06/21/25 07:25 79 06/21/25 07:25 Nasal Cannula 06/21/25 07:05 97.2 F L 75 16 115/65 96 Nasal Cannula 06/21/25 04:00 97.9 F 73 17 102/78 94 Room Air O2 Flow Rate 06/21/25 11:34 2 06/21/25 07:25 06/21/25 07:25 2 06/21/25 07:05 2.0 06/21/25 04:00 PG Care Time/CCT Total # of Minutes Spent Total Time Spent with Patient: Total time spent is greater than 50% in coordination of care (as documented) at patient's floor/unit and/or counseling patient: Coding Level of Care Code 43621 SUB INP/OBS CARE 3/50MIN Diagnoses Acute and chronic respiratory failure J96.20 Malignant ascites R18.0 Pleural effusion J90 Urinary tract infection N39.0 Acute diastolic CHF (congestive heart failure) I50.31 Right hand pain M79.641"
[2025-06-22 08:01] LABS: Anion Gap 8.0 (3-11); Blood Urea Nitrogen 34.0 mg/dl (6-23); Calcium 9.1 mg/dl (8.6-10.3); Carbon Dioxide 37.0 mmol/L (21-32); Chloride 89.0 mmol/L (98-107); Creatinine Clr Calc Pharmacy 52.7 ml/min; Glucose 100.0 mg/dl (70-99(Fasting)); Potassium 4.4 mmol/L (3.5-5.1); Sodium 134.0 mmol/L (136-145)
--- NOTE | 2025-06-22 10:52 | Palliative Care Progress Note ---
Date of Service June 22, 2025 Assessment & Plan (1) Counseling regarding advanced directives and goals of care: Plan: met with pt at bedside, no visitors present. Revisited ACP discussions from yesterday and pt reinforced her wish for DNR/DNI. Pt shared that her daughter and daughter in law are working together with CM to identify facility where she can receive PT/OT in hopes to rebuild strength and functional independence. She is clear in her goals for dc to SNF with PT to optimize strength/independence /mobility then transition to hospice. She is hoping to return home, but realizes this will depend on how things go with PT. if her health worsens she would want to focus on comfort and not return to hospital, but rather transition to hospice care at SNF. (2) Palliative care by specialist: Plan: We will sign off on this patient as goals of care are clearly established for DNR/DNI but continue all other life prolonging therapies Thank you for including Palliative Care in the management of this patient. Please call with any questions or concerns regarding this consultation. Plan as above Admission and Anticipated Discharge Date Admission Date: June 11, 2025 Review of Systems Review of Systems: All systems reviewed & are unremarkable except as noted in HPI & below Physical Exam Constitutional: WD/WN, vitals as above Eyes: PERRL, conjunctivae normal, anicteric sclerae Respiratory: normal respiratory effort, lungs clear to auscultation Cardiovascular: RRR, no murmur, no edema Gastrointestinal (Abdomen): normal bowel sounds, soft, nontender, no hepato splenomegaly Musculoskeletal: no cyanosis or clubbing, extremities motor strength 5/5 Skin: no rashes, warm and dry Psychiatric: A+Ox3, euthymic affect Results & Data Vital Signs (Past 12 Hours) Vital Signs Temp Pulse Pulse Resp BP Pulse Ox O2 Del Method 06/22/25 08:22 36.4 C L 80 17 107/65 95 Nasal Cannula 06/22/25 07:30 89 06/22/25 07:30 Nasal Cannula 06/22/25 02:21 36.6 C 73 18 102/61 95 Nasal Cannula O2 Flow Rate 06/22/25 08:22 2 06/22/25 07:30 06/22/25 07:30 2 06/22/25 02:21 Laboratory Results Abnormal lab results 06/22/25 Range/Units 07:05 Sodium 134 L (136-145) mmol/L Chloride 89 L (98-107) mmol/L Carbon Dioxide 37 H (21-32) mmol/L BUN 34 H (6-23) mg/dl BUN/Creatinine Ratio 45.9 H (10-20) Glucose 100 H (70-99(Fasting)) mg/dl Diagnostic Findings Chest CTA 06/11/25 11:57 CT ANGIOGRAM OF THE CHEST CLINICAL HISTORY: Shortness of breath. History of pulmonary emboli. Ovarian cancer. COMPARISON STUDY: Chest radiograph performed earlier today. Chest CT March 04, 2025. TECHNIQUE: Following the IV administration of 62 cc of Optiray 320, CT angiogram of the chest was performed from the upper abdomen to the thoracic inlet utilizing the pulmonary embolus protocol. Images are reviewed in the axial, sagittal, and coronal planes. 3-D MIPS images are created and assessed. IV contrast was administered without complication. A dose lowering technique was utilized adhering to the principles of ALARA. CT DOSE: 585.54 mGy.cm FINDINGS: The pulmonary emboli on CT of March 04, 2025 have resolved although subsegmental pulmonary arteries are suboptimally assessed on this exam due to respiratory motion. The saddle pulmonary embolus prior study is no longer present. There is no thoracic aortic dissection. The heart is mildly enlarged. There is no pericardial effusion. There is no pneumothorax. A large left pleural effusion has significantly increased in size since prior chest CT. A large right pleural effusion has developed. There is associated compressive left lower lobe atelectasis. There is segmental right lower lobe atelectasis as well as segmental left upper lobe atelectasis. There is no thoracic lymphadenopathy. Visualized portions of the upper abdomen demonstrate multiple hepatic metastases as well as omental and peritoneal implants. A small amount of upper abdominal ascites is noted. Body wall edema is present. Retrocrural lymphadenopathy is again noted. IMPRESSION: 1. No pulmonary emboli identified. Resolution of the pulmonary emboli on CT of March 04, 2025. 2. Significant increase in large bilateral pleural effusions, left larger than right. Associated compressive left lower lobe collapse and segmental left upper lobe and right lower lobe atelectasis. 3. Upper abdominal ascites, lymphadenopathy, peritoneal/omental implants and hepatic metastases. 4. Body wall edema suggestive of anasarca. ACT 112: Negative or not required by law. Electronically signed by: González Huggins M.D. 06/11/2025 12:59 PM Thoracentesis/Paracentesis US 06/15/25 11:14 ULTRASOUND-GUIDED RIGHT THORACENTESIS CLINICAL HISTORY: Large right pleural effusion PROCEDURE: Procedure and risks were explained. Informed consent was obtained. A final timeout was completed. The right posterior thorax was prepped and draped in sterile fashion. 1% lidocaine was utilized for skin anesthesia. Utilizing ultrasound guidance, a 5 [place] safety centesis catheter was advanced into the right pleural effusion. Ultrasound images were obtained. A total of 1300 mL of pleural fluid was removed, with 1 L sent to lab for analysis. The catheter was removed and Band-Aid applied. The patient tolerated the procedure well. A chest x-ray will be obtained post procedure. Vital signs will be monit ored postprocedure. IMPRESSION: Ultrasound-guided right thoracentesis as above. Performed, dictated, and signed by Jimmie Mccallum PA-C; to be co-signed by Dr. Oliver Schofield. Electronically signed by: Oliver Schofield M.D. 06/15/2025 2:48 PM Chest X-Ray 06/17/25 08:00 EXAM: XR chest 1V portable CLINICAL HISTORY: CHF, effusions TECHNIQUE: An X-ray image of the chest is obtained in AP projection. COMPARISON: 06/15/2025 13:05:49 [employer]. FINDINGS: Pulmonary Parenchyma: Mild progression of the faint right lower zone opacities Stable appearance of the left faint lower zone opacities Stable prominent pulmonary interstitial markings. Stable mild bilateral pleural effusion Heart and Mediastinum: Heart size and shape are normal. No mediastinal widening or masses. No hilar or mediastinal lymphadenopathy. Port-A-Cath is again seen with its tip in the cavoatrial junction. Bony Thorax: Bony thorax appears intact without fractures or deformities. Soft Tissues: Soft tissues overlying the chest wall are unremarkable. IMPRESSION: 1. Mild progression of the faint right lower zone opacities 2. Stable appearance of the left faint lower zone opacities 3. Stable prominent pulmonary interstitial markings. 4. Changes are likely related to congestion. 5. Port-A-Cath is again seen with its tip in the cavoatrial junction. Electronically signed by Raul Solis 06-17-2025 08:07 AM Hand X-Ray 06/20/25 08:01 XR hand RT min 3V routine CLINICAL HISTORY: Right hand pain. COMPARISON: Right hand radiographs August 31, 2013. FINDINGS: No acute fractures within the right hand are identified. Carpal bones are intact. There is severe joint space narrowing with extensive osteophytosis within multiple articulations of the right hand and wrist, including the first carpometacarpal joint and the second through fifth DIP joints. There is moderate joint space narrowing and osteophytosis within the PIP joints and several metacarpophalangeal joints. Degenerative changes have moderately progressed since radiographs of August 31, 2013. There is chondrocalcinosis within the TFCC. Several soft tissue calcifications are present. IMPRESSION: 1. No acute fractures within the right hand. 2. 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 Chondrocalcinosis within the TFCC. ACT 112: Negative or not required by law. Electronically signed by: González Huggins M.D. 06/20/2025 9:05 AM Medications Administered Current Inpatient Medications Apixaban (Apixaban 2.5 Mg Tab) 2.5 mg PO BID ERIC Stop: 07/15/25 20:59 Last Admin: 06/22/25 08:49 Dose: 2.5 mg Furosemide (Furosemide 40 Mg Tab) 40 mg PO BID17 ERIC Stop: 07/16/25 16:59 Last Admin: 06/22/25 08:49 Dose: 40 mg Gabapentin (Gabapentin 100 Mg Cap) 200 mg PO BID ERIC Stop: 07/11/25 20:59 Last Admin: 06/22/25 08:49 Dose: 200 mg Heparin Sodium (Porcine) (Heparin 100 Unit/Ml 5ml Flush) 5 ml FLUSH PRN PRN PRN Reason: Flush Stop: 07/19/25 08:35 Last Admin: 06/20/25 08:17 Dose: 5 ml Levothyroxine Sodium (Levothyroxine Sodium 150 Mcg Tablet) 150 mcg PO DAILYBB ERIC Stop: 07/12/25 06:29 Last Admin: 06/22/25 05:34 Dose: 150 mcg Magnesium Oxide (Magnesium Oxide 400 Mg Tab) 400 mg PO BID ERIC Stop: 07/12/25 11:44 Last Admin: 06/22/25 08:49 Dose: 400 mg Oxycodone HCl (Oxycodone Hcl Ir 5 Mg Tab (Immediate Release)) 5 mg PO Q6H PRN PRN Reason: Pain Stop: 07/04/25 08:36 Pantoprazole Sodium (Pantoprazole 40 Mg Tab) 40 mg PO DAILY [facility] Stop: 07/12/25 08:59 Last Admin: 06/22/25 08:49 Dose: 40 mg Polyethylene Glycol (Polyethylene (Miralax) 17 Gm Pack) 8.5 gm PO DAILY ERIC Stop: 07/12/25 08:59 Last Admin: 06/22/25 08:51 Dose: 8.5 gm Potassium Chloride (Potassium Chloride Crtab 20 Meq Tabcr) 20 meq PO BID ERIC Stop: 07/13/25 09:59 Last Admin: 06/22/25 08:48 Dose: 20 meq Prochlorperazine (Prochlorperazine Maleate 10 Mg Tab) 10 mg PO Q6H PRN PRN Reason: Nausea And Vomiting Stop: 07/11/25 16:18 Pyridoxine HCl (Pyridoxine Hcl 50 Mg Tab) 100 mg PO DAILY [facility] Stop: 07/12/25 08:59 Last Admin: 06/22/25 08:49 Dose: 100 mg Senna/Docusate Sodium (Docusate Sodium/Senna 50/8.6mg Tab) 1 tab PO BID PRN PRN Reason: constipation Stop: 07/11/25 16:18 Tramadol HCl (Tramadol Hcl 50 Mg Tablet) 50 mg PO Q6H PRN PRN Reason: Pain Stop: 07/11/25 16:18 Last Admin: 06/21/25 20:07 Dose: 50 mg PG Care Time/CCT Total # of Minutes Spent Total Time Spent with Patient: Total time spent is greater than 50% in coordination of care (as documented) at patient's floor/unit and/or counseling patient: Coding [place] [address] SUB INP/OBS CARE 2/35MIN Patient Type Established History Problem Focused Exam Problem Focused Medical Decision Making Low Complexity Diagnoses Counseling regarding advanced directives and goals of care Z71.89 Palliative care by specialist Z51.5
--- NOTE | 2025-06-22 13:08 | Hospitalist Progress Note ---
"Date of Service June 22, 2025 Assessment & Plan (1) Acute and chronic respiratory failure: (2) Malignant ascites: (3) Pleural effusion: (4) Urinary tract infection: (5) Acute diastolic CHF (congestive heart failure): (6) Right hand pain: Plan Simran is an 84-year-old female with a history of GI bleed and iron deficiency anemia, metastatic ovarian cancer with ascites on Doxil q. 28 days, and DVT/PE (on Eliquis) who presented with progressive dyspnea and weakness. Found to have significant effusions on CTA, no PE. #Acute and chronic respiratory failure | Pleural Effusion - Secondary to volume overload, pleural effusions pulmonary consulted - Status post 2 thoracentesis this admission. Continue diuresis, switched to PO lasix 40mg BID on 06/16 - electrolytes/kidney function stable 06/22 Wean oxygen as tolerated goal greater than 90% palliative care consultedpatient clear with her goals of care would like to go to [facility] to try to get stronger and then will consider hospice at that time #malignant Ascites Known ovarian cancer with carcinomatosis. PleurX catheter in place in the abdominal wall for intermittent paracentesis. #UTI - resolved, completed course of ampicillin #CHF - likely contributing to effusions ECHO: EF 55-60, mild LVH borderline pulmonary hypertension Continue diuresis as above #Hand pain No injury. No fracture seen on x-ray. This appears to be due to osteoarthritis. 1 dose of parenteral steroids 06/20 with improvement in pain dispo: Continued inpatient stay awaiting safe discharge dispo. stable for downgrade to medical DVT prophylaxis: Home Eliquis t Admission and Anticipated Discharge Date Admission Date: June 11, 2025 Subjective patient seen sitting up in bed, ate her breakfast without issue denies feeling short of breath does not feel distended Review of Systems Review of Systems: All systems reviewed & are unremarkable except as noted in Subjective Physical Exam Physical Exam: General: NAD, VS as above Resp: normal respiratory effort,On 2 L, diminished in the bases, worse on the right. CV: RRR, no murmur, Abd: normal bowel sounds, non tender, Distended midly - improved from yesterday Extremities: Moves all extremities, arthritic changes to the hands. Neuro: A&O x3, Results & Data Results & Data Vital Signs (Past 12 Hours) Vital Signs Temp Pulse Pulse Resp BP Pulse Ox O2 Del Method 06/22/25 11:57 96.8 F L 117 H 16 118/77 92 Nasal Cannula 06/22/25 08:22 97.5 F L 80 17 107/65 95 Nasal Cannula 06/22/25 07:30 89 06/22/25 07:30 Nasal Cannula 06/22/25 02:21 97.9 F 73 18 102/61 95 Nasal Cannula O2 Flow Rate 06/22/25 11:57 2 06/22/25 08:22 2 06/22/25 07:30 06/22/25 07:30 2 06/22/25 02:21 Laboratory Results bmp reviewed PG Care Time/CCT Total # of Minutes Spent Total Time Spent with Patient: Total time spent is greater than 50% in coordination of care (as documented) at patient's floor/unit and/or counseling patient: Coding Level of Care Code 91928 SUB INP/OBS CARE 2/35MIN Diagnoses Acute and chronic respiratory failure J96.20 Malignant ascites R18.0 Pleural effusion J90 Urinary tract infection N39.0 Acute diastolic CHF (congestive heart failure) I50.31 Right hand pain M79.641"
[2025-06-22 23:07] VITALS: TEMP 97.5
[2025-06-23 07:39] VITALS: RESP 18
[2025-06-23] MEDS: METOPROLOL SUCC 25MG EXT REL TAB PO SCH (09:10)
[2025-06-23 11:36] VITALS: BP 112/65; PULSE 105; O2SAT 93
--- NOTE | 2025-06-23 12:00 | Discharge Summary ---
"Discharge Summary Date of Service June 23, 2025 Principal Dx & Hospital Course #1 = Principal Diagnosis (1) Acute and chronic respiratory failure: (2) Malignant ascites: (3) Pleural effusion: (4) Urinary tract infection: (5) Acute diastolic CHF (congestive heart failure): (6) Right hand pain: Plan Simran is an 84-year-old female with a history of GI bleed and iron deficiency anemia, metastatic ovarian cancer with ascites on Doxil q. 28 days, and DVT/PE (on Eliquis) who presented with progressive dyspnea and weakness. Found to have significant effusions on CTA, no PE. #Acute and chronic respiratory failure | Pleural Effusion - Secondary to volume overload, pleural effusions. pulmonary consulted - Status post 2 thoracentesis this admission. Continue diuresis, switched to PO lasix 40mg BID on 06/16 - electrolytes/kidney function stable 06/22 . Wean oxygen as tolerated goal greater than 90%. palliative care consultedpatient clear with her goals of care would like to go to [facility] to try to get stronger and then will consider hospice at that time #malignant Ascites - Known ovarian cancer with carcinomatosis. PleurX catheter in place in the abdominal wall for intermittent paracentesis. #UTI - resolved, completed course of ampicillin #CHF - likely contributing to effusions. ECHO: EF 55-60, mild LVH borderline pulmonary hypertension. low dose metoprolol added, minimal BP room to add further GDMT, defer to outpatient providers. continue lasix. #Hand pain No injury. No fracture seen on x-ray. This appears to be due to osteoarthritis. 1 dose of parenteral steroids 06/20 with improvement in pain dispo: discharge to [facility] today Admission HPI Per Admitting Provider Simran is an 84-year-old female with a history of GI bleed and iron deficiency anemia, metastatic ovarian cancer with ascites on Doxil q. 28 days, and DVT/PE on Lovenox who was seen at PCPs office and was found to be weak with progressive dyspnea and was referred to the ER for further evaluation. Assessment in the ER CTA shows no PE, significant increasxe in large bilateral pleural effusions left larger than right with compressive atelectasis, body wall edema suggestive of anasarca. Troponin is normal, BMP 117. She does not have a leukocytosis. Last echo is with EF 60 to 65%, elevated RVSP, no regional wall motion abnormalities. D/w Pulm by ER --> has been on eliquis which is held. Would benefit from thorocentesis, but currently limited by eliquis Per patient: Simran is seen at the bedside. She reports that she has had progressive shortness of breath over the last few days, and probably a few weeks. She endorses orthopnea/shortness of breath laying flat. She denies any chest pain or chest pressure, but notes she is more short of breath on exertion and notes some shortness of breath at rest today. She saw her PCP concerned her shortness of breath might be due to a cold, she was found to be hypoxic and was referred to the ER. She denies fever, chills, sweats. She has had a dry cough and small amount of clear sputum production, denies significant sputum production. Again endorses orthopnea worse in the last few days. She has history of urinary incontinence and is not sure if she has more frequency or not lately but denies dysuria. She was switched from Lovenox treatment for past PE/DVT toEliquis around 3 weeks ago. She switched as she had a lot of bruising on her abdomen due to the Lovenox. She took her Eliquis in the morning of 06/11/2025. She reports she has a PleurX for drainage of ascitic fluid, although notes that she did not have much fluid that drained last time. 2 weeks ago had around 2 L of fluid removed. She has had a significant increase increase in lower extremity swelling and was worried this could be due to blood clots versus fluid. She reports she has been taking Lasix 20 mg daily. Baseline weight is around 150 pounds. She has been undergoing doxorubicin treatment. She restarted Doxil q. 28-day treatment on 05/21/2025. Given is palliative in nature, she currently also follows with palliative care. She is aware of hospice and hospice benefits and anticipates transitioning to this when ready, but has not yet felt ready for this. No tobacco/alcohol use Allergies, medical history, surgical history reviewed Confirms DNR/DNI status at the bedside Discharge Exam General: NAD, VS as above, sitting at the edge of the bed Resp: normal respiratory effort,On 2 L, diminished in the bases, CV: RRR, no murmur, Abd: normal bowel sounds, non tender, Distended midly - but not bothersome to patient Extremities: Moves all extremities, arthritic changes to the hands. Neuro: A&O x3, Discharge Plan Discharge Items Patient Disposition[facility] Reason For Visit: METS OVARIAN CANCER, AHRF W/ LARGE B/L PLEURAL EFF Discharge Diagnosis: Acute hypoxic respiratory failure. Suspected acute diastolic congestive heart failure with bilateral pleural effusions, enterococcal and streptococcal UTI Condition on Discharge: Fair Activity: As commented below Activity Comment: work with therapy to get stronger Non-emergency contact: Primary Care Provider and Oncologist Call non-emergency contact if: you have any medication questions and your symptoms worsen Follow-up/Referrals: Whit Farley MD [Primary Care Provider] - 06/25/25 11:30 am (Hospital follow up on June 25 at 11:30 am.) Diet: Regular Addtl Attending Provider Instructions: Ms. Lopez, You were hospitaized after having increasing shortness of breath. You were found to have fluid build up in your lungs. This was drained by thoracentesis and have had your lasix increased to twice daily to hopefully prevent further fluid buildup in the lungs. Take potassium once daily to prevent low potassium levels. Eliquis replaces Lovenox. You have been started on low dose metoprolol to slow down your heart rate and help with your energy conservation and hopefully help your breathing. Continue to follow up with your oncologist. [facility] to get stronger. Please follow up with your PCP after discharge from rehab. Thank you for allowing us to participate in your care! Here are some guidelines about taking Eliquis: Increased risk of blood clots if you stop taking Eliquis. Do not stop taking Eliquis without talking to your doctor.. Stopping Eliquis increases your risk of having a stroke. Increased risk of bleeding. Eliquis can cause bleeding which can be serious and may lead to . This is because Eliquis is a blood thinner medicine (anticoagulant) that lowers blood clotting. During treatment with Eliquis you are likely to bruise more easily, and it may take longer for bleeding to stop. * If you ever cannot get bleeding to stop please report to the ER * If you have a bruise that is large/painful or swollen you should also be seen by a medical provider Call your doctor or get medical help right away if you or your child develop any of these signs or symptoms of bleeding: unexpected bleeding or bleeding that lasts a long time, such as: * nose bleeds that happen often * unusual bleeding from the gums * bleeding that is severe or you cannot control * red, pink or brown urine * bright red or black stools (looks like tar) * cough up blood or blood clots * vomit blood or your vomit looks like coffee grounds If you have a fall and hit your head, please come to the ER and get checked out. Being on a blood thinner increases your risk of brain bleeding with falls. Avoid high risk activities, such as: * standing on tall ladders * riding motorcycles * anything where you are high risk for falls or trauma Avoid taking NSAIDs (pain medication) while you are taking a blood thinner. This includes: * Ibuprofen, Aleve Advil, Naproxen. * If you are ever unsure you can ask your doctor or pharmacist. * Tylenol is SAFE to take. If you have any new or worsening chest pain or shortness of breath please return to the ER. Pending Studies at Discharge: No Stand-Alone Forms: My [facility] Skilled Items Patient informed of condition?: Yes DNR: Yes Discharge Level of Care: Skilled Communicable Disease: No Discharge Prognosis: Stable Lines: None Urinary Catheter: No Medications and DC Order Prescriptions: New furosemide 40 mg Tablet 40 mg PO BID17 Qty: 60 0RF potassium chloride 20 mEq Tablet,Er Particles/Crystals 20 meq PO DAILY Qty: 30 0RF magnesium oxide 400 mg (241.3 mg magnesium) Tablet 400 mg PO BID Qty: 60 0RF Eliquis 2.5 mg Tablet 2.5 mg PO BID Qty: 60 0RF metoprolol succinate 25 mg Tablet Extended Release 24 Hr 25 mg PO QAM Qty: 30 0RF Continued levothyroxine [Synthroid] 150 mcg tablet 150 mcg PO DAILYBB Qty: 30 5RF acetaminophen 650 mg tablet extended release 1,300 mg PO BID gabapentin [Neurontin] 100 mg capsule 200 mg PO BID polyethylene glycol 3350 [Miralax] 17 gram powder in packet 8.5 g PO DAILY doxorubicin, peg-liposomal [Doxil] 2 mg/mL Suspension 2 mg IV .[id number] Rx Instructions: LAST GIVEN ON 03/19/25. Caregiver unsure of strength at this date/time. ondansetron HCl 8 mg tablet 8 mg PO Q8H PRN (Reason: Nausea And Vomiting) prochlorperazine maleate 10 mg tablet 10 mg PO Q6H PRN (Reason: Nausea And Vomiting) ascorbate calcium (vitamin C) 500 mg Tablet 1,000 mg PO DAILY pyridoxine (vitamin B6) [Vitamin B-6] 100 mg Tablet 100 mg PO DAILY pantoprazole 40 mg Tablet,Delayed Release (Dr/Ec) 40 mg PO DAILY Qty: 30 0RF sennosides-docusate sodium [Senokot-S] 8.6-50 mg tablet 1 - 2 tab-cap PO BID PRN (Reason: constipation) Qty: 60 2RF tramadol 50 mg tablet 50 mg PO Q6H PRN (Reason: Pain) Discontinued enoxaparin [Lovenox] 40 mg/0.4 mL syringe 40 mg subcut Q12H furosemide [Lasix] 40 mg tablet 40 mg PO DAILY Qty: 30 3RF Discharge Orders: Discharge Order (Routine); Ordered 06/23/25 Ordered By: Garima Sanchez/Other Patient Handouts: Apixaban Oral Tablet, Preventing Deep Vein Thrombosis Admission Data Admit Date/Time: 06/11/25 14:20 Attending Provider: Elvira Delgadillo Admit Provider: Goran Kang Primary Care Provider: Whit Farley Other Providers: [facility]; [facility]; [facility]; [facility]; Taj Estrella Other Interventions: Discharge Summary Assessment (RN) Last Done: 06/23/25 12:02 Hospital Stay Data Consultations 06/11/25 14:20 Consult Pulmonology Routine 06/20/25 15:24 Consult Palliative Care Routine Diagnostic Imagining Performed Chest X-Ray 06/11/25 11:28 XR chest 1V portable CLINICAL HISTORY: Dyspnea. COMPARISON STUDY: Chest CT March 04, 2025. FINDINGS: Right internal jugular [id number]-a-Plhx remains in place. There is no pneumothorax. A large left pleural effusion has increased in size since prior exam. Small right pleural effusion. There is diffuse interstitial thickening. Bibasilar opacities are noted. There is cardiomegaly. IMPRESSION: 1. Cardiomegaly with moderate pulmonary edema. 2. Large left and small right pleural effusions with associated bibasilar opacities which could represent atelectasis or pneumonia. ACT 112: Negative or not required by law. Electronically signed by: González Huggins M.D. 06/11/2025 12:03 PM Chest CTA 06/11/25 11:57 CT ANGIOGRAM OF THE CHEST CLINICAL HISTORY: Shortness of breath. History of pulmonary emboli. Ovarian cancer. COMPARISON STUDY: Chest radiograph performed earlier today. Chest CT March 04, 2025. TECHNIQUE: Following the IV administration of 62 cc of Optiray 320, CT angiogram of the chest was performed from the upper abdomen to the thoracic inlet utilizing the pulmonary embolus protocol. Images are reviewed in the axial, sagittal, and coronal planes. 3-D MIPS images are created and assessed. IV contrast was administered without complication. A dose lowering technique was utilized adhering to the principles of ALARA. CT DOSE: 585.54 mGy.cm FINDINGS: The pulmonary emboli on CT of March 04, 2025 have resolved although subsegmental pulmonary arteries are suboptimally assessed on this exam due to respiratory motion. The saddle pulmonary embolus prior study is no longer present. There is no thoracic aortic dissection. The heart is mildly enlarged. There is no pericardial effusion. There is no pneumothorax. A large left pleural effusion has significantly increased in size since prior chest CT. A large right pleural effusion has developed. There is associated compressive left lower lobe atelectasis. There is segmental right lower lobe atelectasis as well as segmental left upper lobe atelectasis. There is no thoracic lymphadenopathy. Visualized portions of the upper abdomen demonstrate multiple hepatic metastases as well as omental and peritoneal implants. A small amount of upper abdominal ascites is noted. Body wall edema is present. Retrocrural lymphadenopathy is again noted. IMPRESSION: 1. No pulmonary emboli identified. Resolution of the pulmonary emboli on CT of March 04, 2025. 2. Significant increase in large bilateral pleural effusions, left larger than right. Associated compressive left lower lobe collapse and segmental left upper lobe and right lower lobe atelectasis. 3. Upper abdominal ascites, lymphadenopathy, peritoneal/omental implants and hepatic metastases. 4. Body wall edema suggestive of anasarca. ACT 112: Negative or not required by law. Electronically signed by: González Huggins M.D. 06/11/2025 12:59 PM Chest X-Ray 06/11/25 17:20 Technique: A frontal view of the chest was obtained Comparison is made to the prior examination dated 03/23/2024 Findings: There are new bilateral lower lobe opacities. The heart size is within normal limits. No definite pneumothorax is seen. There is a new moderate sized left pleural effusion and there is a small right pleural effusion No fracture is noted. There is bilateral glenohumeral osteoarthritis. There is thoracic scoliosis and degenerative disc disease. There is a new right chest wall port with its tip in the SVC Impression: 1. Bilateral lower lobe opacities that could be due to either atelectasis or pneumonia 2. Bilateral pleural effusions Electronically signed by Myke Salgado 06-11-2025 6:01 PM Chest X-Ray 06/13/25 07:00 EXAM: AP portable chest EXAM REASON: Follow-up COMPARISON: 06/11/2025 TECHNIQUE: A single AP view of the chest was obtained FINDINGS: The lungs are well-expanded. There are bilateral hazy graduated opacities noted at the lung bases. There is redemonstration of implantable catheter on the right. There is parabronchial cuffing. The cardiac and mediastinal silhouettes are within normal limits. IMPRESSION: 1. Bilateral pleural effusions unchanged from the previous exam. 2. Stable persistent pulmonary edema. Electronically signed by Ayaan Mott 06-13-2025 08:49 AM Chest X-Ray 06/13/25 15:43 EXAM: AP portable chest EXAM REASON: Postthoracentesis COMPARISON: 06/11/2025 TECHNIQUE: A single AP view of the chest was obtained FINDINGS: The lungs are well-expanded. There is redemonstration of bilateral hazy graduated opacities noted in the lower lung zones. There is redemonstration of an implantable catheter on the right IMPRESSION: Bilateral pleural effusions not significantly changed in appearance from the previous exam. Electronically signed by Ayaan Mott 06-13-2025 4:12 PM Chest X-Ray 06/15/25 07:30 EXAM: XR chest 1V portable CLINICAL HISTORY: CHF, effusions TECHNIQUE: An X-ray image of the chest is obtained in AP projection. COMPARISON: comparison is made with the prior examination dated 06/13/2025 FINDINGS: Pulmonary Parenchyma: [id number].[id number].5.1.1There are prominent pulmonary interstitial markings with hazy ground glass opacities, predominantly in the right mid /OBX.5.1.1OBX.5.1.2 lower and to much lesser degree left lower zones, gossly unchanged since the prior examination./OBX.5.1.2/OBX.5.1 There are moderate right and small left pleural effusions, unchanged since the prior examination. Heart and Mediastinum: Heart size and shape are normal. No mediastinal widening or masses. No hilar or mediastinal lymphadenopathy. Port-A-Cath is again seen with its tip in the cavoatrial junction. Bony Thorax: Bony thorax appears intact without fractures or deformities. Soft Tissues: Soft tissues overlying the chest wall are unremarkable. IMPRESSION: 1. Stable bilateral pleural effusions and underlying airspace opacities, likely related to pulmonary edema. 2. Other findings as described. Electronically signed by Raul Solis 06-15-2025 09:04 AM Thoracentesis/Paracentesis US 06/15/25 11:14 ULTRASOUND-GUIDED RIGHT THORACENTESIS CLINICAL HISTORY: Large right pleural effusion PROCEDURE: Procedure and risks were explained. Informed consent was obtained. A final timeout was completed. The right posterior thorax was prepped and draped in sterile fashion. 1% lidocaine was utilized for skin anesthesia. Utilizing ultrasound guidance, a 5 Mauritian safety centesis catheter was advanced into the right pleural effusion. Ultrasound images were obtained. A total of 1300 mL of pleural fluid was removed, with 1 L sent to lab for analysis. The catheter was removed and Band-Aid applied. The patient tolerated the procedure well. A chest x-ray will be obtained post procedure. Vital signs will be monitored postprocedure. IMPRESSION: Ultrasound-guided right thoracentesis as above. Performed, dictated, and signed by Jimmie Mccallum PA-C; to be co-signed by Dr. Oliver Schofield. Electronically signed by: Oliver Schofield M.D. 06/15/2025 2:48 PM Chest X-Ray 06/15/25 13:56 XR chest 1V not portable CLINICAL HISTORY: Status post thoracentesis. Pleural effusions. COMPARISON STUDY: 06/15/2025 FINDINGS: There is a right-sided Toqllp-k-Kwyb catheter present. The heart is borderline enlarged. There is increased aeration of the right lung with decreased pleural fluid. A small subpulmonic left pleural effusion is suspected. Bibasilar opacities are likely atelectatic. There is persistent interstitial thickening, likely secondary to interstitial edema. No pneumothorax is visualized. Arthritic changes are present within the shoulders. Loose bodies adjacent to the proximal humeral shafts are again visualized. IMPRESSION: No evidence of pneumothorax status post thoracentesis. Decreasing pleural fluid. ACT 112: Negative or not required by law. Electronically signed by: Lui To M.D. 06/15/2025 2:32 PM Chest X-Ray 06/17/25 08:00 EXAM: XR chest 1V portable CLINICAL HISTORY: CHF, effusions TECHNIQUE: An X-ray image of the chest is obtained in AP projection. COMPARISON: 06/15/2025 13:05:49 FREQUENCY CHECKER. FINDINGS: Pulmonary Parenchyma: Mild progression of the faint right lower zone opacities Stable appearance of the left faint lower zone opacities Stable prominent pulmonary interstitial markings. Stable mild bilateral pleural effusion Heart and Mediastinum: Heart size and shape are normal. No mediastinal widening or masses. No hilar or mediastinal lymphadenopathy. Port-A-Cath is again seen with its tip in the cavoatrial junction. Bony Thorax: Bony thorax appears intact without fractures or deformities. Soft Tissues: Soft tissues overlying the chest wall are unremarkable. IMPRESSION: 1. Mild progression of the faint right lower zone opacities 2. Stable appearance of the left faint lower zone opacities 3. Stable prominent pulmonary interstitial markings. 4. Changes are likely related to congestion. 5. Port-A-Cath is again seen with its tip in the cavoatrial junction. Electronically signed by Raul Solis 06-17-2025 08:07 AM Hand X-Ray 06/20/25 08:01 XR hand RT min 3V routine CLINICAL HISTORY: Right hand pain. COMPARISON: Right hand radiographs August 31, 2013. FINDINGS: No acute fractures within the right hand are identified. Carpal bones are intact. There is severe joint space narrowing with extensive osteophytosis within multiple articulations of the right hand and wrist, including the first carpometacarpal joint and the second through fifth DIP joints. There is moderate joint space narrowing and osteophytosis within the PIP joints and several metacarpophalangeal joints. Degenerative changes have moderately progressed since radiographs of August 31, 2013. There is chondrocalcinosis within the TFCC. Several soft tissue calcifications are present. IMPRESSION: 1. No acute fractures within the right hand. 2. 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 Chondrocalcinosis within the TFCC. ACT 112: Negative or not required by law. Electronically signed by: González Huggins M.D. 06/20/2025 9:05 AM Pending Results Patient Have Any Pending Studies at Discharge: No Discharge Instructions Given to Patient (Per Discharging Provider) Ms. Lopez, You were hospitaized after having increasing shortness of breath. You were found to have fluid build up in your lungs. This was drained by thoracentesis and araujo ve had your lasix increased to twice daily to hopefully prevent further fluid buildup in the lungs. Take potassium once daily to prevent low potassium levels. Eliquis replaces Lovenox. You have been started on low dose metoprolol to slow down your heart rate and help with your energy conservation and hopefully help your breathing. Continue to follow up with your oncologist. You are being discharged to [facility] for rehab to get stronger. Please follow up with your PCP after discharge from rehab. Thank you for allowing us to participate in your care! Here are some guidelines about taking Eliquis: Increased risk of blood clots if you stop taking Eliquis. Do not stop taking Eliquis without talking to your doctor.. Stopping Eliquis increases your risk of having a stroke. Increased risk of bleeding. Eliquis can cause bleeding which can be serious and may lead to . This is because Eliquis is a blood thinner medicine (anticoagulant) that lowers blood clotting. During treatment with Eliquis you are likely to bruise more easily, and it may take longer for bleeding to stop. * If you ever cannot get bleeding to stop please report to the ER * If you have a bruise that is large/painful or swollen you should also be seen by a medical provider Call your doctor or get medical help right away if you or your child develop any of these signs or symptoms of bleeding: unexpected bleeding or bleeding that lasts a long time, such as: * nose bleeds that happen often * unusual bleeding from the gums * bleeding that is severe or you cannot control * red, pink or brown urine * bright red or black stools (looks like tar) * cough up blood or blood clots * vomit blood or your vomit looks like coffee grounds If you have a fall and hit your head, please come to the ER and get checked out. Being on a blood thinner increases your risk of brain bleeding with falls. Avoid high risk activities, such as: * standing on tall ladders * riding motorcycles * anything where you are high risk for falls or trauma Avoid taking NSAIDs (pain medication) while you are taking a blood thinner. This includes: * Ibuprofen, Aleve Advil, Naproxen. * If you are ever unsure you can ask your doctor or pharmacist. * Tylenol is SAFE to take. If you have any new or worsening chest pain or shortness of breath please return to the ER. Total Time Total Time Spent Total Time Spent (In Minutes): Time spent day of discharge [33] minutes including direct patient care, medication reconciliation, documentation, review of labs and images, and coordination of care. Coding Level of Care Code 49620 INP/OBS DISCH >30 MIN Diagnoses Acute and chronic respiratory failure J96.20 Malignant ascites R18.0 Pleural effusion J90 Urinary tract infection N39.0 Acute diastolic CHF (congestive heart failure) I50.31 Right hand pain M79.641"
--- NOTE | 2025-06-24 12:05 | Coding Query ---
CODING QUERY To promote full compliance with coding requirements relating to patient care, provider participation is requested in all cases of educational administrator uncertainty. Please assist us with the question(s) below: Coding Question(s): There is documentation, as on the 06/16 Progress Note through the 06/20 Progress Note, regarding Pleural Effusion of, "Pleural effusion: Plan: Bilateral on admission. May be due to underlying congestive heart failure in addition to malignancy". 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 specified neoplasm: Please specify____metastatic ovarian cancer ( ) Malignant Pleural effusion is from unknown likely neoplasm Physician's Response(s): Thank you Diana Greene Principal Diagnosis: "that condition established after study, to be chiefly responsible for occasioning the admission of the patient to the hospital for care." Co-Existing Principal Diagnosis: "when two or more diagnoses equally meet the criteria for principal diagnosis as determined by the circumstances of admission, diagnostic work up, and/or therapy provided, and the Alphabetic Index, Tabular List, or another coding guideline does not provide sequencing direction, any one of the diagnoses may be sequenced first." "When the physician has documented what appears to be a current diagnosis in the body of the record, but has not included the diagnosis in the final diagnostic statement, the physician should be asked whether the diagnosis should be added." (Source [facility] 2 QTR90. p3-4) DARIUS
== END 2025-06-23 16:19 | DRG 754 ==
LOC: ED 11:22 → SUATTDRO 14:20 → 2S 14:20